=== PATIENT | female | born 1940 | race Caucasian/White ===

== ENCOUNTER → 2016-08-01 | Outpatient (CLI) | payer MEDICARE, MEDICAID ==
[~2016-08-01] MED LIST: /ASCO250TA PO; /AUGM875TA OR; /CIPR75TA OR; /HCTZ25TA PO; /LINE60TA PO; /MUPINAS; /ROPI25TA; /TAMS4CA OR; ACET-654 PO; AMLO25TA PO; ANEXSIA PO; ASPI81CH PO; ASPI81TA83 OR; ASPI81TA85 PO; AUGM875T27 PO; BACITAB3 PO; BACITRACIN TOP; BACT800T OR; BISAC5TA PO; BOUDPST TOP; BUTALBITAL; BUTALBITAL PO; CIPR500T3 PO; COLA100C2 OR; CRES20TA; CRES20TA PO; DIFL150T PO; DOCU100C PO; DOCU10ELUD PO; DOXY100C PO; DRIS50002 PO; EUCECRE2 TOP; EUCECRE3 TOP; FERR325T OR; HYDR-3363 PO; HYDR10EL GT; HYDR10T PO; HYDR10TA3 OR; HYDR12.55 PO; HYDR25TA6 OR; HYLANDS LEG CRAMPS PO; IBAN150T5 PO; IBUP800T23 PO; KEFL500C7 PO; KLOR10TA; KLOR1TAB69 PO; KLOR20PO PO; KLOR8TAB OR; LASI20TA PO; LEG CRAMPS; LEG1TAB PO; LEVA500T; LEVA500T PO; LEVO100T7; LEVO137T2 PO; LEVO150T7 PO; LEVO88TA2 PO; LOPR50TA; MAG OXIDE PO; MAGN500T2 OR; MAGN500T2 PO; MAGN500T6 PO; MULTTAB4 PO; NEOSSOL TOP; NIAS500T2 PO; NYST100024 TOP; ONDA4TAB6 PO; OXYB5TAB; PERC5TAB6 PO; PERC5TAB8 OR; PERC7.5T8 OR; PRIMAXIN IV; QUININE PO; SENO8.6T9 PO; SPIR50TA2 OR; SPIR50TA2 PO; SYNT50TA OR; TRIPOIN EX; TYLE325T5 PO; VIBR100C PO; VIBR50SY PO; VICO5TAB; VIT D 4000 PO; VITA500047 PO; VITAMIN D2 PO; VITAMIN D50000 UNT OR; ZINC220C PO; ZYVO100T PO; [UNRECOGNIZED DRUG - OTHER]; [UNRECOGNIZED DRUG - OTHER]; [UNRECOGNIZED DRUG - OTHER] PO; [UNRECOGNIZED DRUG - OTHER] PO; [UNRECOGNIZED DRUG - OTHER] PO; [UNRECOGNIZED DRUG - REMARK] TOP
[2016-08-01 10:43] LABS: ALBUMIN 3.3 GM/DL (3.2-5.2); ALBUMIN/GLOBULIN RATIO 0.83 (1.00-1.93); BILIRUBIN,TOTAL 0.6 MG/DL (0.2-1.0); CALCIUM LEVEL 10.4 MG/DL (8.8-10.2); CREATININE FOR GFR 0.97 MG/DL (0.55-1.02); FREE T4 1.49 NG/DL (0.76-1.46); GLOMERULAR FILTRATION RATE 59.1 (>39); MAGNESIUM LEVEL 2.3 MG/DL (1.8-2.4); TOTAL PROTEIN 7.3 GM/DL (6.4-8.2)
[2016-08-01 10:45] LABS: POTASSIUM SERUM 5.2 MEQ/L (3.5-5.1)
== END ==
LOC: M LAB 09:23
PROVIDERS: ATTEND Emergency Medicine
DX: I10 Essential (primary) hypertension (principal); E78.2 Mixed hyperlipidemia; E55.9 Vitamin D deficiency, unspecified; R73.01 Impaired fasting glucose; E83.42 Hypomagnesemia; E03.9 Hypothyroidism, unspecified

== ENCOUNTER 2016-09-07 11:18 | Emergency (ER) | payer MEDICARE, MEDICAID ==
[2016-09-07] MEDS ORDERED: ONDANSETRON 4MG/2ML VIAL (J2405) As Ordered ONE (11:51)
[2016-09-07 12:18] LABS: BASO % 0.5 % (0.0-1.0); EOS # 0.1 K/mm3 (0.0-0.50); EOS % 1.5 % (0.0-3.0); LARGE UNSTAINED CELL # 0.1 K/mm3 (0.0-0.4); LARGE UNSTAINED CELL % 1.2 % (0.0-4.0); LYMPH # 0.7 K/mm3 (1.5-4.5); LYMPH % 6.9 % (24.0-44.0); MEAN CORPUSCULAR HEMOGLOBIN 27.8 pg (27.0-33.0); MEAN CORPUSCULAR HGB CONC 31.7 g/dl (32.0-36.5); MEAN CORPUSCULAR VOLUME 87.7 fl (80.0-96.0); MONO # 0.6 K/mm3 (0.0-0.8); MONO % 6.2 % (0.0-5.0); NEUTROPHILS # 7.7 K/mm3 (1.8-7.7); NEUTROPHILS % 83.8 % (36.0-66.0); PLATELET COUNT, AUTOMATED 277 k/mm3 (150-450); RED CELL DISTRIBUTION WIDTH 14.2 % (11.5-14.5); WHITE BLOOD COUNT 9.2 K/mm3 (4.0-10.0)
[2016-09-07 12:35] LABS: ALBUMIN 3.2 GM/DL (3.2-5.2); ALBUMIN/GLOBULIN RATIO 0.78 (1.00-1.93); ALKALINE PHOSPHATASE 95 U/L (45-117); ALT/SGPT 20 U/L (12-78); ANION GAP 11 MEQ/L (8-16); AST/SGOT 23 U/L (15-37); BILIRUBIN,DIRECT < 0.1 MG/DL (0.0-0.2); BILIRUBIN,TOTAL 0.2 MG/DL (0.2-1.0); BLOOD UREA NITROGEN 18 MG/DL (7-18); CALCIUM LEVEL 9.1 MG/DL (8.8-10.2); CARBON DIOXIDE LEVEL 23 MEQ/L (21-32); CHLORIDE LEVEL 108 MEQ/L (98-107); CREATININE FOR GFR 0.97 MG/DL (0.55-1.02); GLOMERULAR FILTRATION RATE 59.1 (>39); GLUCOSE, FASTING 113 MG/DL (83-110); POTASSIUM SERUM 4.6 MEQ/L (3.5-5.1); SODIUM LEVEL 142 MEQ/L (136-145); TOTAL PROTEIN 7.3 GM/DL (6.4-8.2)
--- NOTE | 2016-09-07 12:48 | REP ---
Clinical: Cough . Comparison: 10/17/2013 . Findings: The mediastinum and cardiac silhouette are stable and within normal limits for portable technique. The lung navarro are clear without acute consolidation, effusion, or pneumothorax. Skeletal structures are intact. Impression: Normal portable chest x-ray Signed by Ethan Leone MD 09/07/2016 12:40 P
--- NOTE | 2016-09-07 13:47 | EDDOCDS ---
Physician Documentation [facility] Name: Patricia Rea Age: 76 yrs Sex: Female : 1940 Arrival Date: 09/07/2016 Time: 11:18 Bed I3 / M3 Private MD: Dean Sheffield P. Disposition: 09/07/16 13:35 Discharged to Home/Self Care. Impression: Nausea and vomiting, Diarrhea, unspecified. - Condition is Stable. - Discharge Instructions: Viral Gastroenteritis. - Prescriptions for ZOFRAN ODT 4 mg - dissolve 1 tablet by ORAL route 4 times per day As needed do not chew, do not swallow whole; 10 tablet. - Medication Reconciliation form. - Follow up: Dean Sheffield; When: 1 - 2 days; Reason: Wound/Symptom Recheck, Recheck today's complaints, Worsening of conditions, Continuance of care. - Problem is chronic. - Symptoms have improved. Historical: - Allergies: SULFA (SULFONAMIDES); Phenobarbital; Latex; - Home Meds: 1. Vitamin D2 50,000 unit oral cap once wkly (Last dose: 09/07/2016) 2. aspirin 81 mg Oral chew 1 tab once daily (Last dose: 09/06/2016 08:00) 3. Crestor 20 mg Oral tab 1 tab nightly (Last dose: 09/06/2016 20:00) 4. hydroxyzine HCl 10 mg Oral tab twice a day (Last dose: 09/06/2016 20:00) 5. Klor-Con 10 10 mEq Oral TbER 1 tab once daily (Last dose: 09/06/2016 08:00) 6. ibandronate 150 mg oral tab 1 tab once moly (Last dose: 08/13/2016) 7. Synthroid 137 mcg Oral tab 1 tab once daily (Last dose: 09/06/2016 08:00) 8. magnesium gluconate 500 mg oral daily (Last dose: 09/06/2016 08:00) 9. Zofran (as hydrochloride) 4 mg Oral tab (Last dose: 09/07/2016 10:00) 10. antibiotic for cellulitis twice a day 11. o2 3L NC PRN - PMHx: cellulitis; Hypercholesterolemia; Hypertension; Hypothyroidism; Kidney stones; Osteoporosis; - PSHx: Laminectomy. lumbar; Hysterectomy; Appendectomy; Stents, Coronary; D & C; - Social history: Smoking status: Patient states was never smoker of tobacco. No barriers to communication noted, The patient speaks fluent Mauritanian, Speaks appropriately for age. - Family history: Not pertinent. - : The pt / caregiver states he / she is not on anticoagulants. Home medication list is obtained from the patient. - Exposure Risk Screening:: None identified. Vital Signs: 09/07 11:20 BP 148 / 82 RA Sitting (auto/reg); Pulse 85; Resp 20; Temp 99.6(O); Pulse Ox 100% on 3 jrd lpm NC; Weight 124.28 kg / 273.99 lbs (R); Height 5 ft. 0 in. (152.40 cm) (R); Pain 9/10; 13:29 BP 170 / 71; Pulse 89; Resp 20; Temp 99.5; Pulse Ox 92% ; Pain 8/10; jlf 11:20 Body Mass Index 53.51 (124.28 kg, 152.40 cm) jrd MDM: 11:38 Ondansetron 4 mg IVP once ordered. cc10 11:38 IV Saline Lock ordered. cc10 11:38 Undress patient appropriately for examination ordered. cc10 11:38 -Blood Culture (Adults Only), peripheral from different site, or from device/port/PICC cc10 etc. if present ordered. 11:38 NS 0.9% 1000 ml IV at 250 mL/hr continuous ordered. cc10 11:40 Basic Metabolic Profile Ordered. EDMS 11:40 CBC with Diff Ordered. EDMS 11:40 Lipase Ordered. EDMS 11:40 Liver Profile Ordered. EDMS 11:40 Urinalysis Ordered. EDMS 11:40 Urine Culture Ordered. EDMS 11:40 -Blood Culture Ordered. EDMS 11:40 Lactic Acid (Gomez tube on ice) Ordered. EDMS 11:41 NOTHING BY MOUTH+DIET ordered. EDMS 11:41 Chest, 1 View Ordered. EDMS 11:41 -Blood Culture (Adults Only), peripheral from different site, or from device/port/PICC ar3 etc. if present complete. 11:43 BLOOD CULTURES Ordered. EDMS 12:49 Financial registration complete. mm15 13:15 [facility] was scanned into [employer] and attached to record. mm15 13:22 Basic Metabolic Profile Reviewed. cc10 13:22 CBC with Diff Reviewed. cc10 13:22 Liver Profile Reviewed. cc10 13:22 Urinalysis Reviewed. cc10 13:22 Lipase Reviewed. cc10 13:22 Lactic Acid (Gomez tube on ice) Reviewed. cc10 13:22 Chest, 1 View Reviewed. cc10 13:24 Vital Signs ordered. cc10 Administered Medications: 12:13 Drug: NS 0.9% 1000 ml [sodium chloride 0.9 % intravenous solution] Route: IV; Rate: 250 rs3 mL/hr; Site: right hand; 12:14 Drug: Ondansetron 4 mg [ondansetron HCl 2 mg/mL intravenous solution (2 mL)] Route: rs3 IVP; Site: left hand; Signatures: Dispatcher [employer] EDMS Monica Galvan, CORRECTIONS LIEUTENANT CORRECTIONS LIEUTENANT ar3 Radha Bocanegra, RN RN ttb Juvnecio Payton mm15 Glenn Montalvo, PA-C PA-C cc10 Anjelica Barboza RN RN kc3 Shelley Bruner RN rs3 The chart was reviewed and I authenticate all verbal orders and agree with the evaluation and treatment provided.Attachments: 13:15 [facility] Payment Agreement mm15 MTDD
--- NOTE | 2016-09-07 13:47 | EDDOCDS ---
Nurse's Notes [facility] Name: Patricia Rea Age: 76 yrs Sex: Female : 1940 Arrival Date: 09/07/2016 Time: 11:18 Bed I3 / M3 Private MD: Dean Sheffield P. Diagnosis: Nausea and vomiting;Diarrhea, unspecified Presentation: 09/07 11:23 Presenting complaint: Patient states: n/v/d since this morning and cough x3 days. Abd ttb pain. Adult Sepsis Screening: The patient does not have new or worsening altered mentation. Patient's respiratory rate is less than 22. Systolic blood pressure is greater than 100. Patient has a qSOFA score of 0- Negative Sepsis Screen. Suicide/Homicide risk assessment- the patient denies having any suicidal and/or homicidal ideations and does not present with any other emotional, behavioral or mental health complaints. Status: Patient is not a micrographics services supervisor or dependent. Transition of care: patient was not received from another setting of care. 11:23 Acuity: ERIK Level 3 ttb 11:23 Method Of Arrival: Walkin/Carried/Asstd ttb Triage Assessment: 11:27 General: Appears in no apparent distress, obese, well nourished, Behavior is ttb appropriate for age, cooperative, pleasant. Pain: Location: headache, abd pain. Neurological: Level of Consciousness is awake, alert. Cardiovascular: Chest pain is denied. Respiratory: No deficits noted. Airway is patent Respiratory effort is even, unlabored, Denies cough, shortness of breath. Respiratory: Reports shortness of breath at rest on exertion cough that is. GI: Reports diarrhea, lower abdominal pain, upper abdominal pain, nausea, vomiting. Derm: Skin is normal. Injury Description: No known injury. Historical: - Allergies: SULFA (SULFONAMIDES); Phenobarbital; Latex; - Home Meds: 1. Vitamin D2 50,000 unit oral cap once wkly (Last dose: 09/07/2016) 2. aspirin 81 mg Oral chew 1 tab once daily (Last dose: 09/06/2016 08:00) 3. Crestor 20 mg Oral tab 1 tab nightly (Last dose: 09/06/2016 20:00) 4. hydroxyzine HCl 10 mg Oral tab twice a day (Last dose: 09/06/2016 20:00) 5. Klor-Con 10 10 mEq Oral TbER 1 tab once daily (Last dose: 09/06/2016 08:00) 6. ibandronate 150 mg oral tab 1 tab once moly (Last dose: 08/13/2016) 7. Synthroid 137 mcg Oral tab 1 tab once daily (Last dose: 09/06/2016 08:00) 8. magnesium gluconate 500 mg oral daily (Last dose: 09/06/2016 08:00) 9. Zofran (as hydrochloride) 4 mg Oral tab (Last dose: 09/07/2016 10:00) 10. antibiotic for cellulitis twice a day 11. o2 3L NC PRN - PMHx: cellulitis; Hypercholesterolemia; Hypertension; Hypothyroidism; Kidney stones; Osteoporosis; - PSHx: Laminectomy. lumbar; Hysterectomy; Appendectomy; Stents, Coronary; D & C; - Social history: Smoking status: Patient states was never smoker of tobacco. No barriers to communication noted, The patient speaks fluent Maori, Speaks appropriately for age. - Family history: Not pertinent. - : The pt / caregiver states he / she is not on anticoagulants. Home medication list is obtained from the patient. - Exposure Risk Screening:: None identified. Screenin:16 Screening information is obtained from the patient. Fall risk: No risks identified. rs3 Assistance ADL's: requires no assistance with activities of daily living. Abuse/DV Screen: The patient / caregiver reports he/she is: not in a situation that causes fear, pain or injury. Nutritional screening: No deficits noted. Advance Directives: Currently, there is. home support is adequate. Assessment: 12:15 General: Appears in no apparent distress, Behavior is appropriate for age, cooperative. rs3 Pain: Location: abdomen. Neurological: Level of Consciousness is awake, alert, Oriented to person, place, time. Respiratory: Airway is patent Breath sounds are diminished bilaterally. Reports shortness of breath on exertion. GI: Abdomen is obese, Bowel sounds present X 4 quads. Abd is soft and non tender X 4 quads. Derm: Skin is pink, warm & dry. 13:09 General: Appears in no apparent distress, resting comfortable on stretcher. denies of rs3 pain/distress. family at bedside. nausea improved after the nausea med. waiting on test results. . 13:43 General: Appears in no apparent distress, comfortable, Behavior is appropriate for age, kc3 cooperative. General: Family at bedside. . Respiratory: Respiratory effort is even, unlabored. Derm: Skin is pink, warm & dry. Vital Signs: 11:20 BP 148 / 82 RA Sitting (auto/reg); Pulse 85; Resp 20; Temp 99.6(O); Pulse Ox 100% on 3 jrd lpm NC; Weight 124.28 kg (R); Height 5 ft. 0 in. (152.40 cm) (R); Pain 9/10; 13:29 BP 170 / 71; Pulse 89; Resp 20; Temp 99.5; Pulse Ox 92% ; Pain 8/10; jlf 11:20 Body Mass Index 53.51 (124.28 kg, 152.40 cm) [facility] Vitals: 11:20 Log In Time: September 07, 2016 at 11:03. [facility] ED Course: 11:20 Patient visited by Juaquin Manuel PCA. jrd 11:20 Dean Sheffield is Private Physician. jrd 11:20 Patient moved to Waiting jrd 11:21 Patient visited by Juaquin Manuel PCA. jrd 11:21 Patient moved to Pre RCE jrd 11:24 Triage Initiated ttb 11:25 Glenn Montalvo PA-C is PHCP. cc10 11:25 Alireza Smallwood MD is Attending Physician. cc10 11:32 Patient moved to Triage 1 ms18 11:34 Patient visited by Glenn Montalvo PA-C. cc10 11:34 Patient visited by Glenn Montalvo PA-C. cc10 11:44 Patient moved to I3 / M3 rs3 11:47 Patient visited by Inocente Espinosa PCA. jlf 12:14 -Blood Culture Sent. rs3 12:14 CBC with Diff Sent. rs3 12:18 Patient visited by Inocente Espinosa PCA. jlf 13:04 Chest, 1 View Returned. EDMS 13:09 Patient visited by Shelley Bruner RN. rs3 13:15 [facility] [place] was scanned into [employer] and attached to record. mm15 13:35 Dean Sheffield is Referral Physician. cc10 13:44 Inserted saline lock: 22 gauge in right and blood collected. The patient tolerated the kc3 procedure well. wrist, placed by LINDA Vera. No procedures done that require assistance. 13:46 The patient / caregiver is instructed regarding the plan of care and ED course. kc3 13:46 Discontinued IV lock intact, bleeding controlled, pressure dressing applied, No kc3 redness/swelling at site. Administered Medications: 12:13 Drug: NS 0.9% 1000 ml [sodium chloride 0.9 % intravenous solution] Route: IV; Rate: 250 rs3 mL/hr; Site: right hand; 12:14 Drug: Ondansetron 4 mg [ondansetron HCl 2 mg/mL intravenous solution (2 mL)] Route: rs3 IVP; Site: left hand; Order Results: Lab Order: Basic Metabolic Profile; [facility] 09/07/16 11:47 Test: GLUCOSE, FASTING; Value: 113; Range: 83-110; Abnormal: Above high normal; Units: MG/DL; Status: F Test: BLOOD UREA NITROGEN; Value: 18; Range: 7-18; Units: MG/DL; Status: F Test: CREATININE FOR GFR; Value: 0.97; Range: 0.55-1.02; Units: MG/DL; Status: F Test: GLOMERULAR FILTRATION RATE; Value: 59.1; Range: >39; Status: F Test: SODIUM LEVEL; Value: 142; Range: 136-145; Units: MEQ/L; Status: F Test: POTASSIUM SERUM; Value: 4.6; Range: 3.5-5.1; Units: MEQ/L; Status: F Test: CHLORIDE LEVEL; Value: 108; Range: 98-107; Abnormal: Above high normal; Units: MEQ/L; Status: F Test: CARBON DIOXIDE LEVEL; Value: 23; Range: 21-32; Units: MEQ/L; Status: F Test: ANION GAP; Value: 11; Range: 8-16; Units: MEQ/L; Status: F Test: CALCIUM LEVEL; Value: 9.1; Range: 8.8-10.2; Units: MG/DL; Status: F Test Note: ; Units are mL/min/1.73 m2 Chronic Kidney Disease Staging per NKF: Stage I & II GFR >=60 Normal to Mildly Decreased Stage III GFR 30-59 Moderately Decreased Stage IV GFR 15-29 Severely Decreased Stage V GFR <15 Very Little GFR Left ESRD GFR <15 on BRAIDING MACHINE TENDER Lab Order: CBC with Diff; SPEC'M 09/07/16 11:47 Test: WHITE BLOOD COUNT; Value: 9.2; Range: 4.0-10.0; Units: K/mm3; Status: F Test: RED BLOOD COUNT; Value: 4.93; Range: 4.00-5.40; Units: M/mm3; Status: F Test: HEMOGLOBIN; Value: 13.7; Range: 12.0-16.0; Units: g/dl; Status: F Test: HEMATOCRIT; Value: 43.2; Range: 36.0-47.0; Units: %; Status: F Test: MEAN CORPUSCULAR VOLUME; Value: 87.7; Range: 80.0-96.0; Units: fl; Status: F Test: MEAN CORPUSCULAR HEMOGLOBIN; Value: 27.8; Range: 27.0-33.0; Units: pg; Status: F Test: MEAN CORPUSCULAR HGB CONC; Value: 31.7; Range: 32.0-36.5; Abnormal: Below low normal; Units: g/dl; Status: F Test: RED CELL DISTRIBUTION WIDTH; Value: 14.2; Range: 11.5-14.5; Units: %; Status: F Test: PLATELET COUNT, AUTOMATED; Value: 277; Range: 150-450; Units: k/mm3; Status: F Test: NEUTROPHILS %; Value: 83.8; Range: 36.0-66.0; Abnormal: Above high normal; Units: %; Status: F Test: LYMPH %; Value: 6.9; Range: 24.0-44.0; Abnormal: Below low normal; Units: %; Status: F Test: MONO %; Value: 6.2; Range: 0.0-5.0; Abnormal: Above high normal; Units: %; Status: F Test: EOS %; Value: 1.5; Range: 0.0-3.0; Units: %; Status: F Test: BASO %; Value: 0.5; Range: 0.0-1.0; Units: %; Status: F Test: LARGE UNSTAINED CELL %; Value: 1.2; Range: 0.0-4.0; Units: %; Status: F Test: NEUTROPHILS #; Value: 7.7; Range: 1.8-7.7; Units: K/mm3; Status: F Test: LYMPH #; Value: 0.7; Range: 1.5-4.5; Abnormal: Below low normal; Units: K/mm3; Status: F Test: MONO #; Value: 0.6; Range: 0.0-0.8; Units: K/mm3; Status: F Test: EOS #; Value: 0.1; Range: 0.0-0.50; Units: K/mm3; Status: F Test: BASO #; Value: 0.0; Range: 0.0-0.2; Units: K/mm3; Status: F Test: LARGE UNSTAINED CELL #; Value: 0.1; Range: 0.0-0.4; Units: K/mm3; Status: F Lab Order: Lipase; [facility] 09/07/16 11:47 Test: LIPASE; Value: 338; Range: 73-393; Units: U/L; Status: F Lab Order: Liver Profile; [facility] 09/07/16 11:47 Test: AST/SGOT; Value: 23; Range: 15-37; Units: U/L; Status: F Test: ALT/SGPT; Value: 20; Range: 12-78; Units: U/L; Status: F Test: ALKALINE PHOSPHATASE; Value: 95; Range: 45-117; Units: U/L; Status: F Test: BILIRUBIN,TOTAL; Value: 0.2; Range: 0.2-1.0; Units: MG/DL; Status: F Test: BILIRUBIN,DIRECT; Value: < 0.1; Range: 0.0-0.2; Units: MG/DL; Status: F Test: TOTAL PROTEIN; Value: 7.3; Range: 6.4-8.2; Units: GM/DL; Status: F Test: ALBUMIN; Value: 3.2; Range: 3.2-5.2; Units: GM/DL; Status: F Test: ALBUMIN/GLOBULIN RATIO; Value: 0.78; Range: 1.00-1.93; Abnormal: Below low normal; Status: F Lab Order: Urinalysis; [facility] 09/07/16 11:47 Test: APPEARANCE, URINE; Value: HAZY; Range: CLEAR; Status: F Test: COLOR, URINE; Value: YELLOW; Range: YELLOW; Status: F Test: PH,URINE; Value: 6.0; Range: 5.0-9.0; Units: UNITS; Status: F Test: SPECIFIC GRAVITY URINE AUTO; Value: 1.014; Range: 1.002-1.035; Status: F Test: PROTEIN, URINE AUTO; Value: 1+; Range: NEGATIVE; Abnormal: Above high normal; Units: mg/dL; Status: F Test: GLUCOSE, URINE (UA) AUTO; Value: NEGATIVE; Range: NEGATIVE; Units: mg/dL; Status: F Test: KETONE, URINE AUTO; Value: NEGATIVE; Range: NEGATIVE; Units: mg/dL; Status: F Test: UROBILINOGEN, URINE AUTO; Value: 0.2; Range: 0.0-2.0; Units: mg/dL; Status: F Test: BILIRUBIN, URINE AUTO; Value: NEGATIVE; Range: NEGATIVE; Status: F Test: NITRITE, URINE AUTO; Value: NEGATIVE; Range: NEGATIVE; Status: F Test: LEUKOCYTE ESTERASE, URINE AUTO; Value: NEGATIVE; Range: NEGATIVE; Status: F Test: BLOOD, URINE BLOOD; Value: 2+; Range: NEGATIVE; Abnormal: Above high normal; Status: F Test: WBC, URINE AUTO; Value: 13; Range: 0-3; Abnormal: Above high normal; Units: /HPF; Status: F Test: RBC, URINE AUTO; Value: 173; Range: 0-3; Abnormal: Above high normal; Units: /HPF; Status: F Test: BACTERIA, URINE AUTO; Value: NEGATIVE; Range: NEGATIVE; Status: F Test: SQUAMOUS EPITHELIAL CELL UR AU; Value: 0; Range: 0-6; Units: /HPF; Status: F Test: MUCUS, URINE; Value: SMALL; Range: NEGATIVE; Status: F Test: HYALINE CAST, URINE AUTO; Value: 0; Range: 0-1; Units: /LPF; Status: F Lab Order: Lactic Acid (Gomez tube on ice); SPEC'M 09/07/16 12:38 Test: LACTIC ACID SEPSIS PROTOCOL; Value: 1.2; Range: 0.4-2.0; Units: MMOL/L; Status: F Radiology Order: Chest, 1 View Test: Chest, 1 View REASON FOR EXAMINATION: Cough; Clinical: Cough .; ; Comparison: 10/17/2013 .; ; Findings:; The mediastinum and cardiac silhouette are stable and within normal limits for; portable technique. The lung navarro are clear without acute consolidation,; effusion, or pneumothorax. Skeletal structures are intact.; ; Impression:; Normal portable chest x-ray; ; ; Signed by; Ethan Leone MD 09/07/2016 12:40 P; Outcome: 13:35 Discharge ordered by Provider. cc10 13:44 Discharge Assessment: Patient awake, alert and oriented x 3. No cognitive and/or kc3 functional deficits noted. Patient verbalized understanding of disposition instructions. patient administered narcotics - no. The following High Risk Discharge criteria are identified: None. Discharged to home via wheelchair, with family. Condition: stable. Discharge instructions given to patient, Instructed on discharge instructions, follow up and referral plans. medication usage, Demonstrated understanding of instructions, medications, Pt was receptive of discharge instructions/ teaching. Prescriptions given X 1. No special radiology studies were completed. Property :Personal belongings accompany Pt. 13:47 Patient left the ED. kc3 Signatures: Dispatcher [employer] EDMS Shelley BrunerRN RN rs3 Radha Bocanegra RN RN Juvencio Zambrano mm15 Inocente Espinosa, PATTERNMAKER APPRENTICE WOOD PATTERNMAKER APPRENTICE WOOD Glenn Smith, PA-C PA-C cc10 Bethany Kim,LINDA RN ms18 Juaquin Manuel, PATTERNMAKER APPRENTICE WOOD PATTERNMAKER APPRENTICE WOOD jrd Anjelica Barboza,RN RN kc3 MTDD
--- NOTE | 2016-09-09 14:48 | EDDOCDS ---
Physician Documentation [facility] Name: Patricia Rea Age: 76 yrs Sex: Female : 1940 Arrival Date: 09/07/2016 Time: 11:18 Bed I3 / M3 Private MD: Dean Sheffield P. Disposition: 09/07/16 13:35 Discharged to Home/Self Care. Impression: Nausea and vomiting, Diarrhea, unspecified. - Condition is Stable. - Discharge Instructions: Viral Gastroenteritis. - Prescriptions for ZOFRAN ODT 4 mg - dissolve 1 tablet by ORAL route 4 times per day As needed do not chew, do not swallow whole; 10 tablet. - Medication Reconciliation form. - Follow up: Dean Sheffield; When: 1 - 2 days; Reason: Wound/Symptom Recheck, Recheck today's complaints, Worsening of conditions, Continuance of care. - Problem is chronic. - Symptoms have improved. Historical: - Allergies: SULFA (SULFONAMIDES); Phenobarbital; Latex; - Home Meds: 1. Vitamin D2 50,000 unit oral cap once wkly (Last dose: 09/07/2016) 2. aspirin 81 mg Oral chew 1 tab once daily (Last dose: 09/06/2016 08:00) 3. Crestor 20 mg Oral tab 1 tab nightly (Last dose: 09/06/2016 20:00) 4. hydroxyzine HCl 10 mg Oral tab twice a day (Last dose: 09/06/2016 20:00) 5. Klor-Con 10 10 mEq Oral TbER 1 tab once daily (Last dose: 09/06/2016 08:00) 6. ibandronate 150 mg oral tab 1 tab once moly (Last dose: 08/13/2016) 7. Synthroid 137 mcg Oral tab 1 tab once daily (Last dose: 09/06/2016 08:00) 8. magnesium gluconate 500 mg oral daily (Last dose: 09/06/2016 08:00) 9. Zofran (as hydrochloride) 4 mg Oral tab (Last dose: 09/07/2016 10:00) 10. antibiotic for cellulitis twice a day 11. o2 3L NC PRN - PMHx: cellulitis; Hypercholesterolemia; Hypertension; Hypothyroidism; Kidney stones; Osteoporosis; - PSHx: Laminectomy. lumbar; Hysterectomy; Appendectomy; Stents, Coronary; D & C; - Social history: Smoking status: Patient states was never smoker of tobacco. No barriers to communication noted, The patient speaks fluent [place] Islander, Speaks appropriately for age. - Family history: Not pertinent. - : The pt / caregiver states he / she is not on anticoagulants. Home medication list is obtained from the patient. - Exposure Risk Screening:: None identified. Vital Signs: 09/07 11:20 BP 148 / 82 RA Sitting (auto/reg); Pulse 85; Resp 20; Temp 99.6(O); Pulse Ox 100% on 3 jrd lpm NC; Weight 124.28 kg / 273.99 lbs (R); Height 5 ft. 0 in. (152.40 cm) (R); Pain 9/10; 13:29 BP 170 / 71; Pulse 89; Resp 20; Temp 99.5; Pulse Ox 92% ; Pain 8/10; jlf 11:20 Body Mass Index 53.51 (124.28 kg, 152.40 cm) jrd MDM: 11:38 Ondansetron 4 mg IVP once ordered. cc10 11:38 IV Saline Lock ordered. cc10 11:38 Undress patient appropriately for examination ordered. cc10 11:38 -Blood Culture (Adults Only), peripheral from different site, or from device/port/PICC cc10 etc. if present ordered. 11:38 NS 0.9% 1000 ml IV at 250 mL/hr continuous ordered. cc10 11:40 Basic Metabolic Profile Ordered. EDMS 11:40 CBC with Diff Ordered. EDMS 11:40 Lipase Ordered. EDMS 11:40 Liver Profile Ordered. EDMS 11:40 Urinalysis Ordered. EDMS 11:40 Urine Culture Ordered. EDMS 11:40 -Blood Culture Ordered. EDMS 11:40 Lactic Acid (Gomez tube on ice) Ordered. EDMS 11:41 NOTHING BY MOUTH+DIET ordered. EDMS 11:41 Chest, 1 View Ordered. EDMS 11:41 -Blood Culture (Adults Only), peripheral from different site, or from device/port/PICC ar3 etc. if present complete. 11:43 BLOOD CULTURES Ordered. EDMS 12:49 Financial registration complete. mm15 13:15 [facility] [place] Agreement was scanned into [employer] and attached to record. mm15 13:22 Basic Metabolic Profile Reviewed. cc10 13:22 CBC with Diff Reviewed. cc10 13:22 Liver Profile Reviewed. cc10 13:22 Urinalysis Reviewed. cc10 13:22 Lipase Reviewed. cc10 13:22 Lactic Acid (Gomez tube on ice) Reviewed. cc10 13:22 Chest, 1 View Reviewed. cc10 13:24 Vital Signs ordered. cc10 09/08 10:31 T-Sheet-- Draft Copy was scanned into [employer] and attached to record. gb Administered Medications: 09/07 12:13 Drug: NS 0.9% 1000 ml [sodium chloride 0.9 % intravenous solution] Route: IV; Rate: 250 rs3 mL/hr; Site: right hand; 12:14 Drug: Ondansetron 4 mg [ondansetron HCl 2 mg/mL intravenous solution (2 mL)] Route: rs3 IVP; Site: left hand; Signatures: Dispatcher [employer] EDMS Ana Gonzalez, Reg Reg gb Monica Galvan, RADIAGRAPH OPERATOR RADIAGRAPH OPERATOR ar3 Radha Bocanegra, LINDA RN ttJuvencio Robb mm15 Glenn Montalvo, PA-C PA-C cc10 Anjelica Barboza RN RN kc3 Shelley Bruner RN rs3 The chart was reviewed and I authenticate all verbal orders and agree with the evaluation and treatment provided.Attachments: 13:15 [facility] [place] Agreement mm15 09/08 10:31 T-Sheet-- Draft Copy gb Chart Complete MTDD
--- NOTE | 2016-09-09 14:48 | EDDOCDS ---
Physician Documentation [facility] Name: Patricia Rea Age: 76 yrs Sex: Female : 1940 Arrival Date: 09/07/2016 Time: 11:18 Bed I3 / M3 Private MD: Dean Sheffield P. Disposition: 09/07/16 13:35 Discharged to Home/Self Care. Impression: Nausea and vomiting, Diarrhea, unspecified. - Condition is Stable. - Discharge Instructions: Viral Gastroenteritis. - Prescriptions for ZOFRAN ODT 4 mg - dissolve 1 tablet by ORAL route 4 times per day As needed do not chew, do not swallow whole; 10 tablet. - Medication Reconciliation form. - Follow up: Dean Sheffield; When: 1 - 2 days; Reason: Wound/Symptom Recheck, Recheck today's complaints, Worsening of conditions, Continuance of care. - Problem is chronic. - Symptoms have improved. Historical: - Allergies: SULFA (SULFONAMIDES); Phenobarbital; Latex; - Home Meds: 1. Vitamin D2 50,000 unit oral cap once wkly (Last dose: 09/07/2016) 2. aspirin 81 mg Oral chew 1 tab once daily (Last dose: 09/06/2016 08:00) 3. Crestor 20 mg Oral tab 1 tab nightly (Last dose: 09/06/2016 20:00) 4. hydroxyzine HCl 10 mg Oral tab twice a day (Last dose: 09/06/2016 20:00) 5. Klor-Con 10 10 mEq Oral TbER 1 tab once daily (Last dose: 09/06/2016 08:00) 6. ibandronate 150 mg oral tab 1 tab once moly (Last dose: 08/13/2016) 7. Synthroid 137 mcg Oral tab 1 tab once daily (Last dose: 09/06/2016 08:00) 8. magnesium gluconate 500 mg oral daily (Last dose: 09/06/2016 08:00) 9. Zofran (as hydrochloride) 4 mg Oral tab (Last dose: 09/07/2016 10:00) 10. antibiotic for cellulitis twice a day 11. o2 3L NC PRN - PMHx: cellulitis; Hypercholesterolemia; Hypertension; Hypothyroidism; Kidney stones; Osteoporosis; - PSHx: Laminectomy. lumbar; Hysterectomy; Appendectomy; Stents, Coronary; D & C; - Social history: Smoking status: Patient states was never smoker of tobacco. No barriers to communication noted, The patient speaks fluent [place], Speaks appropriately for age. - Family history: Not pertinent. - : The pt / caregiver states he / she is not on anticoagulants. Home medication list is obtained from the patient. - Exposure Risk Screening:: None identified. Vital Signs: 09/07 11:20 BP 148 / 82 RA Sitting (auto/reg); Pulse 85; Resp 20; Temp 99.6(O); Pulse Ox 100% on 3 jrd lpm NC; Weight 124.28 kg / 273.99 lbs (R); Height 5 ft. 0 in. (152.40 cm) (R); Pain 9/10; 13:29 BP 170 / 71; Pulse 89; Resp 20; Temp 99.5; Pulse Ox 92% ; Pain 8/10; jlf 11:20 Body Mass Index 53.51 (124.28 kg, 152.40 cm) jrd MDM: 11:38 Ondansetron 4 mg IVP once ordered. cc10 11:38 IV Saline Lock ordered. cc10 11:38 Undress patient appropriately for examination ordered. cc10 11:38 -Blood Culture (Adults Only), peripheral from different site, or from device/port/PICC cc10 etc. if present ordered. 11:38 NS 0.9% 1000 ml IV at 250 mL/hr continuous ordered. cc10 11:40 Basic Metabolic Profile Ordered. EDMS 11:40 CBC with Diff Ordered. EDMS 11:40 Lipase Ordered. EDMS 11:40 Liver Profile Ordered. EDMS 11:40 Urinalysis Ordered. EDMS 11:40 Urine Culture Ordered. EDMS 11:40 -Blood Culture Ordered. EDMS 11:40 Lactic Acid (Gomez tube on ice) Ordered. EDMS 11:41 NOTHING BY MOUTH+DIET ordered. EDMS 11:41 Chest, 1 View Ordered. EDMS 11:41 -Blood Culture (Adults Only), peripheral from different site, or from device/port/PICC ar3 etc. if present complete. 11:43 BLOOD CULTURES Ordered. EDMS 12:49 Financial registration complete. mm15 13:15 [facility] [place] was scanned into [employer] and attached to record. mm15 13:22 Basic Metabolic Profile Reviewed. cc10 13:22 CBC with Diff Reviewed. cc10 13:22 Liver Profile Reviewed. cc10 13:22 Urinalysis Reviewed. cc10 13:22 Lipase Reviewed. cc10 13:22 Lactic Acid (Gomez tube on ice) Reviewed. cc10 13:22 Chest, 1 View Reviewed. cc10 13:24 Vital Signs ordered. cc10 09/08 10:31 T-Sheet-- Draft Copy was scanned into [employer] and attached to record. gb Administered Medications: 09/07 12:13 Drug: NS 0.9% 1000 ml [sodium chloride 0.9 % intravenous solution] Route: IV; Rate: 250 rs3 mL/hr; Site: right hand; 12:14 Drug: Ondansetron 4 mg [ondansetron HCl 2 mg/mL intravenous solution (2 mL)] Route: rs3 IVP; Site: left hand; Signatures: Dispatcher OFERTALDIA EDMS Ana Gonzalez, Reg Reg gb Monica Galvan, CATH LAB TECHNOLOGIST CATH LAB TECHNOLOGIST ar3 Radha Bocanegra, LINDA RN ttJuvencio Robb mm15 Glenn Montalvo, PA-C PA-C cc10 Anjelica Barboza RN RN kc3 Shelley Bruner RN rs3 The chart was reviewed and I authenticate all verbal orders and agree with the evaluation and treatment provided.Attachments: 13:15 [facility] [place] Agreement mm15 09/08 10:31 T-Sheet-- Draft Copy gb Chart Complete MTDD
--- NOTE | 2016-09-09 14:48 | EDDOCDS ---
Nurse's Notes [facility] Name: Patricia Rea Age: 76 yrs Sex: Female : 1940 Arrival Date: 09/07/2016 Time: 11:18 Bed I3 / M3 Private MD: Dean Sheffield P. Diagnosis: Nausea and vomiting;Diarrhea, unspecified Presentation: 09/07 11:23 Presenting complaint: Patient states: n/v/d since this morning and cough x3 days. Abd ttb pain. Adult Sepsis Screening: The patient does not have new or worsening altered mentation. Patient's respiratory rate is less than 22. Systolic blood pressure is greater than 100. Patient has a qSOFA score of 0- Negative Sepsis Screen. Suicide/Homicide risk assessment- the patient denies having any suicidal and/or homicidal ideations and does not present with any other emotional, behavioral or mental health complaints. Status: Patient is not a information services tech or dependent. Transition of care: patient was not received from another setting of care. 11:23 Acuity: ERIK Level 3 ttb 11:23 Method Of Arrival: Walkin/Carried/Asstd ttb Triage Assessment: 11:27 General: Appears in no apparent distress, obese, well nourished, Behavior is ttb appropriate for age, cooperative, pleasant. Pain: Location: headache, abd pain. Neurological: Level of Consciousness is awake, alert. Cardiovascular: Chest pain is denied. Respiratory: No deficits noted. Airway is patent Respiratory effort is even, unlabored, Denies cough, shortness of breath. Respiratory: Reports shortness of breath at rest on exertion cough that is. GI: Reports diarrhea, lower abdominal pain, upper abdominal pain, nausea, vomiting. Derm: Skin is normal. Injury Description: No known injury. Historical: - Allergies: SULFA (SULFONAMIDES); Phenobarbital; Latex; - Home Meds: 1. Vitamin D2 50,000 unit oral cap once wkly (Last dose: 09/07/2016) 2. aspirin 81 mg Oral chew 1 tab once daily (Last dose: 09/06/2016 08:00) 3. Crestor 20 mg Oral tab 1 tab nightly (Last dose: 09/06/2016 20:00) 4. hydroxyzine HCl 10 mg Oral tab twice a day (Last dose: 09/06/2016 20:00) 5. Klor-Con 10 10 mEq Oral TbER 1 tab once daily (Last dose: 09/06/2016 08:00) 6. ibandronate 150 mg oral tab 1 tab once moly (Last dose: 08/13/2016) 7. Synthroid 137 mcg Oral tab 1 tab once daily (Last dose: 09/06/2016 08:00) 8. magnesium gluconate 500 mg oral daily (Last dose: 09/06/2016 08:00) 9. Zofran (as hydrochloride) 4 mg Oral tab (Last dose: 09/07/2016 10:00) 10. antibiotic for cellulitis twice a day 11. o2 3L NC PRN - PMHx: cellulitis; Hypercholesterolemia; Hypertension; Hypothyroidism; Kidney stones; Osteoporosis; - PSHx: Laminectomy. lumbar; Hysterectomy; Appendectomy; Stents, Coronary; D & C; - Social history: Smoking status: Patient states was never smoker of tobacco. No barriers to communication noted, The patient speaks fluent [place], Speaks appropriately for age. - Family history: Not pertinent. - : The pt / caregiver states he / she is not on anticoagulants. Home medication list is obtained from the patient. - Exposure Risk Screening:: None identified. Screenin:16 Screening information is obtained from the patient. Fall risk: No risks identified. rs3 Assistance ADL's: requires no assistance with activities of daily living. Abuse/DV Screen: The patient / caregiver reports he/she is: not in a situation that causes fear, pain or injury. Nutritional screening: No deficits noted. Advance Directives: Currently, there is. home support is adequate. Assessment: 12:15 General: Appears in no apparent distress, Behavior is appropriate for age, cooperative. rs3 Pain: Location: abdomen. Neurological: Level of Consciousness is awake, alert, Oriented to person, place, time. Respiratory: Airway is patent Breath sounds are diminished bilaterally. Reports shortness of breath on exertion. GI: Abdomen is obese, Bowel sounds present X 4 quads. Abd is soft and non tender X 4 quads. Derm: Skin is pink, warm & dry. 13:09 General: Appears in no apparent distress, resting comfortable on stretcher. denies of rs3 pain/distress. family at bedside. nausea improved after the nausea med. waiting on test results. . 13:43 General: Appears in no apparent distress, comfortable, Behavior is appropriate for age, kc3 cooperative. General: Family at bedside. . Respiratory: Respiratory effort is even, unlabored. Derm: Skin is pink, warm & dry. Vital Signs: 11:20 BP 148 / 82 RA Sitting (auto/reg); Pulse 85; Resp 20; Temp 99.6(O); Pulse Ox 100% on 3 jrd lpm NC; Weight 124.28 kg (R); Height 5 ft. 0 in. (152.40 cm) (R); Pain 9/10; 13:29 BP 170 / 71; Pulse 89; Resp 20; Temp 99.5; Pulse Ox 92% ; Pain 8/10; jlf 11:20 Body Mass Index 53.51 (124.28 kg, 152.40 cm) [facility] Vitals: 11:20 Log In Time: September 07, 2016 at 11:03. [facility] ED Course: 11:20 Patient visited by Juaquin Manuel PCA. jrd 11:20 Dean Sheffield is Private Physician. jrd 11:20 Patient moved to Waiting jrd 11:21 Patient visited by Juauqin Manuel PCA. jrd 11:21 Patient moved to Pre RCE jrd 11:24 Triage Initiated ttb 11:25 Glenn Montalvo PA-C is PHCP. cc10 11:25 Alireza Smallwood MD is Attending Physician. cc10 11:32 Patient moved to Triage 1 ms18 11:34 Patient visited by Glenn Montalvo PA-C. cc10 11:34 Patient visited by Glenn Montalvo PA-C. cc10 11:44 Patient moved to I3 / M3 rs3 11:47 Patient visited by Inocente Espinosa PCA. jlf 12:14 -Blood Culture Sent. rs3 12:14 CBC with Diff Sent. rs3 12:18 Patient visited by Inocente Espinosa PCA. jlf 13:04 Chest, 1 View Returned. EDMS 13:09 Patient visited by Shelley Bruner RN. rs3 13:15 [facility] [place] Agreement was scanned into [employer] and attached to record. mm15 13:35 Dean Sheffield is Referral Physician. cc10 13:44 Inserted saline lock: 22 gauge in right and blood collected. The patient tolerated the kc3 procedure well. wrist, placed by LINDA Vera. No procedures done that require assistance. 13:46 The patient / caregiver is instructed regarding the plan of care and ED course. kc3 13:46 Discontinued IV lock intact, bleeding controlled, pressure dressing applied, No kc3 redness/swelling at site. 09/08 10:31 T-Sheet-- Draft Copy was scanned into [employer] and attached to record. gb Administered Medications: 09/07 12:13 Drug: NS 0.9% 1000 ml [sodium chloride 0.9 % intravenous solution] Route: IV; Rate: 250 rs3 mL/hr; Site: right hand; 12:14 Drug: Ondansetron 4 mg [ondansetron HCl 2 mg/mL intravenous solution (2 mL)] Route: rs3 IVP; Site: left hand; Order Results: Lab Order: Basic Metabolic Profile; SPEC'M 09/07/16 11:47 Test: GLUCOSE, FASTING; Value: 113; Range: 83-110; Abnormal: Above high normal; Units: MG/DL; Status: F Test: BLOOD UREA NITROGEN; Value: 18; Range: 7-18; Units: MG/DL; Status: F Test: CREATININE FOR GFR; Value: 0.97; Range: 0.55-1.02; Units: MG/DL; Status: F Test: GLOMERULAR FILTRATION RATE; Value: 59.1; Range: >39; Status: F Test: SODIUM LEVEL; Value: 142; Range: 136-145; Units: MEQ/L; Status: F Test: POTASSIUM SERUM; Value: 4.6; Range: 3.5-5.1; Units: MEQ/L; Status: F Test: CHLORIDE LEVEL; Value: 108; Range: 98-107; Abnormal: Above high normal; Units: MEQ/L; Status: F Test: CARBON DIOXIDE LEVEL; Value: 23; Range: 21-32; Units: MEQ/L; Status: F Test: ANION GAP; Value: 11; Range: 8-16; Units: MEQ/L; Status: F Test: CALCIUM LEVEL; Value: 9.1; Range: 8.8-10.2; Units: MG/DL; Status: F Test Note: ; Units are mL/min/1.73 m2 Chronic Kidney Disease Staging per NKF: Stage I & II GFR >=60 Normal to Mildly Decreased Stage III GFR 30-59 Moderately Decreased Stage IV GFR 15-29 Severely Decreased Stage V GFR <15 Very Little GFR Left ESRD GFR <15 on BELL TIER Lab Order: CBC with Diff; JENNIFER'Yenny 09/07/16 11:47 Test: WHITE BLOOD COUNT; Value: 9.2; Range: 4.0-10.0; Units: K/mm3; Status: F Test: RED BLOOD COUNT; Value: 4.93; Range: 4.00-5.40; Units: M/mm3; Status: F Test: HEMOGLOBIN; Value: 13.7; Range: 12.0-16.0; Units: g/dl; Status: F Test: HEMATOCRIT; Value: 43.2; Range: 36.0-47.0; Units: %; Status: F Test: MEAN CORPUSCULAR VOLUME; Value: 87.7; Range: 80.0-96.0; Units: fl; Status: F Test: MEAN CORPUSCULAR HEMOGLOBIN; Value: 27.8; Range: 27.0-33.0; Units: pg; Status: F Test: MEAN CORPUSCULAR HGB CONC; Value: 31.7; Range: 32.0-36.5; Abnormal: Below low normal; Units: g/dl; Status: F Test: RED CELL DISTRIBUTION WIDTH; Value: 14.2; Range: 11.5-14.5; Units: %; Status: F Test: PLATELET COUNT, AUTOMATED; Value: 277; Range: 150-450; Units: k/mm3; Status: F Test: NEUTROPHILS %; Value: 83.8; Range: 36.0-66.0; Abnormal: Above high normal; Units: %; Status: F Test: LYMPH %; Value: 6.9; Range: 24.0-44.0; Abnormal: Below low normal; Units: %; Status: F Test: MONO %; Value: 6.2; Range: 0.0-5.0; Abnormal: Above high normal; Units: %; Status: F Test: EOS %; Value: 1.5; Range: 0.0-3.0; Units: %; Status: F Test: BASO %; Value: 0.5; Range: 0.0-1.0; Units: %; Status: F Test: LARGE UNSTAINED CELL %; Value: 1.2; Range: 0.0-4.0; Units: %; Status: F Test: NEUTROPHILS #; Value: 7.7; Range: 1.8-7.7; Units: K/mm3; Status: F Test: LYMPH #; Value: 0.7; Range: 1.5-4.5; Abnormal: Below low normal; Units: K/mm3; Status: F Test: MONO #; Value: 0.6; Range: 0.0-0.8; Units: K/mm3; Status: F Test: EOS #; Value: 0.1; Range: 0.0-0.50; Units: K/mm3; Status: F Test: BASO #; Value: 0.0; Range: 0.0-0.2; Units: K/mm3; Status: F Test: LARGE UNSTAINED CELL #; Value: 0.1; Range: 0.0-0.4; Units: K/mm3; Status: F Lab Order: Lipase; SPEC' 09/07/16 11:47 Test: LIPASE; Value: 338; Range: 73-393; Units: U/L; Status: F Lab Order: Liver Profile; SPEC' 09/07/16 11:47 Test: AST/SGOT; Value: 23; Range: 15-37; Units: U/L; Status: F Test: ALT/SGPT; Value: 20; Range: 12-78; Units: U/L; Status: F Test: ALKALINE PHOSPHATASE; Value: 95; Range: 45-117; Units: U/L; Status: F Test: BILIRUBIN,TOTAL; Value: 0.2; Range: 0.2-1.0; Units: MG/DL; Status: F Test: BILIRUBIN,DIRECT; Value: < 0.1; Range: 0.0-0.2; Units: MG/DL; Status: F Test: TOTAL PROTEIN; Value: 7.3; Range: 6.4-8.2; Units: GM/DL; Status: F Test: ALBUMIN; Value: 3.2; Range: 3.2-5.2; Units: GM/DL; Status: F Test: ALBUMIN/GLOBULIN RATIO; Value: 0.78; Range: 1.00-1.93; Abnormal: Below low normal; Status: F Lab Order: Urinalysis; SPEC'M 09/07/16 11:47 Test: APPEARANCE, URINE; Value: HAZY; Range: CLEAR; Status: F Test: COLOR, URINE; Value: YELLOW; Range: YELLOW; Status: F Test: PH,URINE; Value: 6.0; Range: 5.0-9.0; Units: UNITS; Status: F Test: SPECIFIC GRAVITY URINE AUTO; Value: 1.014; Range: 1.002-1.035; Status: F Test: PROTEIN, URINE AUTO; Value: 1+; Range: NEGATIVE; Abnormal: Above high normal; Units: mg/dL; Status: F Test: GLUCOSE, URINE (UA) AUTO; Value: NEGATIVE; Range: NEGATIVE; Units: mg/dL; Status: F Test: KETONE, URINE AUTO; Value: NEGATIVE; Range: NEGATIVE; Units: mg/dL; Status: F Test: UROBILINOGEN, URINE AUTO; Value: 0.2; Range: 0.0-2.0; Units: mg/dL; Status: F Test: BILIRUBIN, URINE AUTO; Value: NEGATIVE; Range: NEGATIVE; Status: F Test: NITRITE, URINE AUTO; Value: NEGATIVE; Range: NEGATIVE; Status: F Test: LEUKOCYTE ESTERASE, URINE AUTO; Value: NEGATIVE; Range: NEGATIVE; Status: F Test: BLOOD, URINE BLOOD; Value: 2+; Range: NEGATIVE; Abnormal: Above high normal; Status: F Test: WBC, URINE AUTO; Value: 13; Range: 0-3; Abnormal: Above high normal; Units: /HPF; Status: F Test: RBC, URINE AUTO; Value: 173; Range: 0-3; Abnormal: Above high normal; Units: /HPF; Status: F Test: BACTERIA, URINE AUTO; Value: NEGATIVE; Range: NEGATIVE; Status: F Test: SQUAMOUS EPITHELIAL CELL UR AU; Value: 0; Range: 0-6; Units: /HPF; Status: F Test: MUCUS, URINE; Value: SMALL; Range: NEGATIVE; Status: F Test: HYALINE CAST, URINE AUTO; Value: 0; Range: 0-1; Units: /LPF; Status: F Lab Order: Urine Culture; SPEC'M 09/07/16 11:48 Test: URINE CULTURE; Value: <EXTERNAL COMMENT eCWMed> FULL REPORT IN LAB NOTES (eCW and Medent).; Status: F Test: URINE CULTURE; Value: ORGANISM 1: PSEUDOMONAS AERUGINOSA; Status: F Test: URINE CULTURE; Value: PSEUDOMONAS AERUGINOSA; Status: F Test: URINE CULTURE; Value: COLONY COUNT CFU/ml 30,000; Status: F Test: URINE CULTURE; Value: GRAM NEG SENSI - VITEK 80; Status: F Test: URINE CULTURE; Value: Method: VIT2; Status: F Test: URINE CULTURE; Value: GENTAMICIN <=1 S; Status: F Test: URINE CULTURE; Value: NITROFURANTOIN >=512 R; Status: F Test: URINE CULTURE; Value: LEVOFLOXACIN 0.25 S; Status: F Test: URINE CULTURE; Value: TOBRAMYCIN <=1 S; Status: F Test: URINE CULTURE; Value: CEFTAZIDIME <=1 S; Status: F Test: URINE CULTURE; Value: PIPERACILLIN/TAZOBACTAM <=4 S; Status: F Test: URINE CULTURE; Value: MEROPENEM <=0.25 S; Status: F Test: URINE CULTURE; Value: CEFEPIME <=1 S; Status: F Lab Order: -Blood Culture; SPEC'M 09/07/16 11:47 Test: BLOOD CULTURE; Value: No growth after 24 hours . All specimens observed; Status: F Test: BLOOD CULTURE; Value: for 5 days. Results final at that time.; Status: F Test: BLOOD CULTURE; Value: No Growth after 48 hours. All Specimens observed; Status: F Test: BLOOD CULTURE; Value: for 7 days. Results final at that time.; Status: F Lab Order: Lactic Acid (Gomez tube on ice); SPEC'M 09/07/16 12:38 Test: LACTIC ACID SEPSIS PROTOCOL; Value: 1.2; Range: 0.4-2.0; Units: MMOL/L; Status: F Lab Order: BLOOD CULTURES; SPEC'M 09/07/16 12:38 Test: BLOOD CULTURE; Value: No growth after 24 hours . All specimens observed; Status: F Test: BLOOD CULTURE; Value: for 5 days. Results final at that time.; Status: F Test: BLOOD CULTURE; Value: No Growth after 48 hours. All Specimens observed; Status: F Test: BLOOD CULTURE; Value: for 7 days. Results final at that time.; Status: F Radiology Order: Chest, 1 View Test: Chest, 1 View REASON FOR EXAMINATION: Cough; Clinical: Cough .; ; Comparison: 10/17/2013 .; ; Findings:; The mediastinum and cardiac silhouette are stable and within normal limits for; portable technique. The lung navarro are clear without acute consolidation,; effusion, or pneumothorax. Skeletal structures are intact.; ; Impression:; Normal portable chest x-ray; ; ; Signed by; Ethan Leone MD 09/07/2016 12:40 P; Outcome: 13:35 Discharge ordered by Provider. cc10 13:44 Discharge Assessment: Patient awake, alert and oriented x 3. No cognitive and/or kc3 functional deficits noted. Patient verbalized understanding of disposition instructions. patient administered narcotics - no. The following High Risk Discharge criteria are identified: None. Discharged to home via wheelchair, with family. Condition: stable. Discharge instructions given to patient, Instructed on discharge instructions, follow up and referral plans. medication usage, Demonstrated understanding of instructions, medications, Pt was receptive of discharge instructions/ teaching. Prescriptions given X 1. No special radiology studies were completed. Property :Personal belongings accompany Pt. 13:47 Patient left the ED. kc3 Signatures: Dispatcher [employer] EDMS Ana Gonzalez, Reg Reg gb Shelley Bruner,RN RN rs3 Radha Bocanegra, LINDA RN Juvencio Zambrano mm15 Inocente Espinosa, MAT MAKER MAT MAKER jlf Glenn Montalvo, PA-C PA-C cc10 Bethany Kim,LINDA MCKEON ms18 Juaquin Manuel, MAT MAKER MAT MAKER jrd Anjelica Barboza,RN RN kc3 Chart Complete MTDD
--- NOTE | 2016-09-11 10:07 | EDDOCDS ---
Physician Documentation [facility] Name: Patricia Rea Age: 76 yrs Sex: Female : 1940 Arrival Date: 09/07/2016 Time: 11:18 Bed I3 / M3 Private MD: Dean Sheffield P. Disposition: 09/07/16 13:35 Discharged to Home/Self Care. Impression: Nausea and vomiting, Diarrhea, unspecified. - Condition is Stable. - Discharge Instructions: Viral Gastroenteritis. - Prescriptions for ZOFRAN ODT 4 mg - dissolve 1 tablet by ORAL route 4 times per day As needed do not chew, do not swallow whole; 10 tablet. - Medication Reconciliation form. - Follow up: Dean Sheffield; When: 1 - 2 days; Reason: Wound/Symptom Recheck, Recheck today's complaints, Worsening of conditions, Continuance of care. - Problem is chronic. - Symptoms have improved. Historical: - Allergies: SULFA (SULFONAMIDES); Phenobarbital; Latex; - Home Meds: 1. Vitamin D2 50,000 unit oral cap once wkly (Last dose: 09/07/2016) 2. aspirin 81 mg Oral chew 1 tab once daily (Last dose: 09/06/2016 08:00) 3. Crestor 20 mg Oral tab 1 tab nightly (Last dose: 09/06/2016 20:00) 4. hydroxyzine HCl 10 mg Oral tab twice a day (Last dose: 09/06/2016 20:00) 5. Klor-Con 10 10 mEq Oral TbER 1 tab once daily (Last dose: 09/06/2016 08:00) 6. ibandronate 150 mg oral tab 1 tab once moly (Last dose: 08/13/2016) 7. Synthroid 137 mcg Oral tab 1 tab once daily (Last dose: 09/06/2016 08:00) 8. magnesium gluconate 500 mg oral daily (Last dose: 09/06/2016 08:00) 9. Zofran (as hydrochloride) 4 mg Oral tab (Last dose: 09/07/2016 10:00) 10. antibiotic for cellulitis twice a day 11. o2 3L NC PRN - PMHx: cellulitis; Hypercholesterolemia; Hypertension; Hypothyroidism; Kidney stones; Osteoporosis; - PSHx: Laminectomy. lumbar; Hysterectomy; Appendectomy; Stents, Coronary; D & C; - Social history: Smoking status: Patient states was never smoker of tobacco. No barriers to communication noted, The patient speaks fluent [place], Speaks appropriately for age. - Family history: Not pertinent. - : The pt / caregiver states he / she is not on anticoagulants. Home medication list is obtained from the patient. - Exposure Risk Screening:: None identified. Vital Signs: 09/07 11:20 BP 148 / 82 RA Sitting (auto/reg); Pulse 85; Resp 20; Temp 99.6(O); Pulse Ox 100% on 3 jrd lpm NC; Weight 124.28 kg / 273.99 lbs (R); Height 5 ft. 0 in. (152.40 cm) (R); Pain 9/10; 13:29 BP 170 / 71; Pulse 89; Resp 20; Temp 99.5; Pulse Ox 92% ; Pain 8/10; jlf 11:20 Body Mass Index 53.51 (124.28 kg, 152.40 cm) jrd MDM: 11:38 Ondansetron 4 mg IVP once ordered. cc10 11:38 IV Saline Lock ordered. cc10 11:38 Undress patient appropriately for examination ordered. cc10 11:38 -Blood Culture (Adults Only), peripheral from different site, or from device/port/PICC cc10 etc. if present ordered. 11:38 NS 0.9% 1000 ml IV at 250 mL/hr continuous ordered. cc10 11:40 Basic Metabolic Profile Ordered. EDMS 11:40 CBC with Diff Ordered. EDMS 11:40 Lipase Ordered. EDMS 11:40 Liver Profile Ordered. EDMS 11:40 Urinalysis Ordered. EDMS 11:40 Urine Culture Ordered. EDMS 11:40 -Blood Culture Ordered. EDMS 11:40 Lactic Acid (Gomez tube on ice) Ordered. EDMS 11:41 NOTHING BY MOUTH+DIET ordered. EDMS 11:41 Chest, 1 View Ordered. EDMS 11:41 -Blood Culture (Adults Only), peripheral from different site, or from device/port/PICC ar3 etc. if present complete. 11:43 BLOOD CULTURES Ordered. EDMS 12:49 Financial registration complete. mm15 13:15 [facility] [place] was scanned into [employer] and attached to record. mm15 13:22 Basic Metabolic Profile Reviewed. cc10 13:22 CBC with Diff Reviewed. cc10 13:22 Liver Profile Reviewed. cc10 13:22 Urinalysis Reviewed. cc10 13:22 Lipase Reviewed. cc10 13:22 Lactic Acid (Gomez tube on ice) Reviewed. cc10 13:22 Chest, 1 View Reviewed. cc10 13:24 Vital Signs ordered. cc10 09/08 10:31 T-Sheet-- Draft Copy was scanned into [employer] and attached to record. gb Administered Medications: 09/07 12:13 Drug: NS 0.9% 1000 ml [sodium chloride 0.9 % intravenous solution] Route: IV; Rate: 250 rs3 mL/hr; Site: right hand; 12:14 Drug: Ondansetron 4 mg [ondansetron HCl 2 mg/mL intravenous solution (2 mL)] Route: rs3 IVP; Site: left hand; Signatures: Dispatcher [employer] EDMS Ana Gonzalez, Reg Reg gb Garrett Galvana, PICTURE FRAMER PICTURE FRAMER ar3 Radha Bocanegra, LINDA RN ttJuvencio Robb mm15 Glenn Montalvo, PA-C PA-C cc10 Anjelica Barboza RN RN kc3 Shelley Bruner RN rs3 The chart was reviewed and I authenticate all verbal orders and agree with the evaluation and treatment provided.Attachments: 13:15 [facility] [place] Agreement mm15 09/08 10:31 T-Sheet-- Draft Copy gb MTDD
--- NOTE | 2016-09-11 10:07 | EDDOCDS ---
Physician Documentation [facility] Name: Patricia Rea Age: 76 yrs Sex: Female : 1940 Arrival Date: 09/07/2016 Time: 11:18 Bed I3 / M3 Private MD: Dean Sheffield P. Disposition: 09/07/16 13:35 Discharged to Home/Self Care. Impression: Nausea and vomiting, Diarrhea, unspecified. - Condition is Stable. - Discharge Instructions: Viral Gastroenteritis. - Prescriptions for ZOFRAN ODT 4 mg - dissolve 1 tablet by ORAL route 4 times per day As needed do not chew, do not swallow whole; 10 tablet. - Medication Reconciliation form. - Follow up: Dean Sheffield; When: 1 - 2 days; Reason: Wound/Symptom Recheck, Recheck today's complaints, Worsening of conditions, Continuance of care. - Problem is chronic. - Symptoms have improved. Historical: - Allergies: SULFA (SULFONAMIDES); Phenobarbital; Latex; - Home Meds: 1. Vitamin D2 50,000 unit oral cap once wkly (Last dose: 09/07/2016) 2. aspirin 81 mg Oral chew 1 tab once daily (Last dose: 09/06/2016 08:00) 3. Crestor 20 mg Oral tab 1 tab nightly (Last dose: 09/06/2016 20:00) 4. hydroxyzine HCl 10 mg Oral tab twice a day (Last dose: 09/06/2016 20:00) 5. Klor-Con 10 10 mEq Oral TbER 1 tab once daily (Last dose: 09/06/2016 08:00) 6. ibandronate 150 mg oral tab 1 tab once moly (Last dose: 08/13/2016) 7. Synthroid 137 mcg Oral tab 1 tab once daily (Last dose: 09/06/2016 08:00) 8. magnesium gluconate 500 mg oral daily (Last dose: 09/06/2016 08:00) 9. Zofran (as hydrochloride) 4 mg Oral tab (Last dose: 09/07/2016 10:00) 10. antibiotic for cellulitis twice a day 11. o2 3L NC PRN - PMHx: cellulitis; Hypercholesterolemia; Hypertension; Hypothyroidism; Kidney stones; Osteoporosis; - PSHx: Laminectomy. lumbar; Hysterectomy; Appendectomy; Stents, Coronary; D & C; - Social history: Smoking status: Patient states was never smoker of tobacco. No barriers to communication noted, The patient speaks fluent [place], Speaks appropriately for age. - Family history: Not pertinent. - : The pt / caregiver states he / she is not on anticoagulants. Home medication list is obtained from the patient. - Exposure Risk Screening:: None identified. Vital Signs: 09/07 11:20 BP 148 / 82 RA Sitting (auto/reg); Pulse 85; Resp 20; Temp 99.6(O); Pulse Ox 100% on 3 jrd lpm NC; Weight 124.28 kg / 273.99 lbs (R); Height 5 ft. 0 in. (152.40 cm) (R); Pain 9/10; 13:29 BP 170 / 71; Pulse 89; Resp 20; Temp 99.5; Pulse Ox 92% ; Pain 8/10; jlf 11:20 Body Mass Index 53.51 (124.28 kg, 152.40 cm) jrd MDM: 11:38 Ondansetron 4 mg IVP once ordered. cc10 11:38 IV Saline Lock ordered. cc10 11:38 Undress patient appropriately for examination ordered. cc10 11:38 -Blood Culture (Adults Only), peripheral from different site, or from device/port/PICC cc10 etc. if present ordered. 11:38 NS 0.9% 1000 ml IV at 250 mL/hr continuous ordered. cc10 11:40 Basic Metabolic Profile Ordered. EDMS 11:40 CBC with Diff Ordered. EDMS 11:40 Lipase Ordered. EDMS 11:40 Liver Profile Ordered. EDMS 11:40 Urinalysis Ordered. EDMS 11:40 Urine Culture Ordered. EDMS 11:40 -Blood Culture Ordered. EDMS 11:40 Lactic Acid (Gomez tube on ice) Ordered. EDMS 11:41 NOTHING BY MOUTH+DIET ordered. EDMS 11:41 Chest, 1 View Ordered. EDMS 11:41 -Blood Culture (Adults Only), peripheral from different site, or from device/port/PICC ar3 etc. if present complete. 11:43 BLOOD CULTURES Ordered. EDMS 12:49 Financial registration complete. mm15 13:15 [facility] [place] Agreement was scanned into [employer] and attached to record. mm15 13:22 Basic Metabolic Profile Reviewed. cc10 13:22 CBC with Diff Reviewed. cc10 13:22 Liver Profile Reviewed. cc10 13:22 Urinalysis Reviewed. cc10 13:22 Lipase Reviewed. cc10 13:22 Lactic Acid (Gomez tube on ice) Reviewed. cc10 13:22 Chest, 1 View Reviewed. cc10 13:24 Vital Signs ordered. cc10 09/08 10:31 T-Sheet-- Draft Copy was scanned into [employer] and attached to record. gb Administered Medications: 09/07 12:13 Drug: NS 0.9% 1000 ml [sodium chloride 0.9 % intravenous solution] Route: IV; Rate: 250 rs3 mL/hr; Site: right hand; 12:14 Drug: Ondansetron 4 mg [ondansetron HCl 2 mg/mL intravenous solution (2 mL)] Route: rs3 IVP; Site: left hand; Signatures: Dispatcher [employer] EDMS Ana Gonzalez, Reg Reg gb Garrett Galvana, SPRINKLER FITTER HELPER SPRINKLER FITTER HELPER ar3 Radha Bocanegra, LINDA RN ttJuvencio Robb mm15 Glenn Montalvo, PA-C PA-C cc10 Anjelica Barboza RN RN kc3 Shelley Bruner RN rs3 The chart was reviewed and I authenticate all verbal orders and agree with the evaluation and treatment provided.Attachments: 13:15 [facility] [place] Agreement mm15 09/08 10:31 T-Sheet-- Draft Copy gb MTDD
--- NOTE | 2016-09-11 10:08 | EDDOCDS ---
Nurse's Notes [facility] Name: Patricia Rea Age: 76 yrs Sex: Female : 1940 Arrival Date: 09/07/2016 Time: 11:18 Bed I3 / M3 Private MD: Dean Sheffield P. Diagnosis: Nausea and vomiting;Diarrhea, unspecified Presentation: 09/07 11:23 Presenting complaint: Patient states: n/v/d since this morning and cough x3 days. Abd ttb pain. Adult Sepsis Screening: The patient does not have new or worsening altered mentation. Patient's respiratory rate is less than 22. Systolic blood pressure is greater than 100. Patient has a qSOFA score of 0- Negative Sepsis Screen. Suicide/Homicide risk assessment- the patient denies having any suicidal and/or homicidal ideations and does not present with any other emotional, behavioral or mental health complaints. Status: Patient is not a service loss control consultant or dependent. Transition of care: patient was not received from another setting of care. 11:23 Acuity: ERIK Level 3 ttb 11:23 Method Of Arrival: Walkin/Carried/Asstd ttb Triage Assessment: 11:27 General: Appears in no apparent distress, obese, well nourished, Behavior is ttb appropriate for age, cooperative, pleasant. Pain: Location: headache, abd pain. Neurological: Level of Consciousness is awake, alert. Cardiovascular: Chest pain is denied. Respiratory: No deficits noted. Airway is patent Respiratory effort is even, unlabored, Denies cough, shortness of breath. Respiratory: Reports shortness of breath at rest on exertion cough that is. GI: Reports diarrhea, lower abdominal pain, upper abdominal pain, nausea, vomiting. Derm: Skin is normal. Injury Description: No known injury. Historical: - Allergies: SULFA (SULFONAMIDES); Phenobarbital; Latex; - Home Meds: 1. Vitamin D2 50,000 unit oral cap once wkly (Last dose: 09/07/2016) 2. aspirin 81 mg Oral chew 1 tab once daily (Last dose: 09/06/2016 08:00) 3. Crestor 20 mg Oral tab 1 tab nightly (Last dose: 09/06/2016 20:00) 4. hydroxyzine HCl 10 mg Oral tab twice a day (Last dose: 09/06/2016 20:00) 5. Klor-Con 10 10 mEq Oral TbER 1 tab once daily (Last dose: 09/06/2016 08:00) 6. ibandronate 150 mg oral tab 1 tab once moly (Last dose: 08/13/2016) 7. Synthroid 137 mcg Oral tab 1 tab once daily (Last dose: 09/06/2016 08:00) 8. magnesium gluconate 500 mg oral daily (Last dose: 09/06/2016 08:00) 9. Zofran (as hydrochloride) 4 mg Oral tab (Last dose: 09/07/2016 10:00) 10. antibiotic for cellulitis twice a day 11. o2 3L NC PRN - PMHx: cellulitis; Hypercholesterolemia; Hypertension; Hypothyroidism; Kidney stones; Osteoporosis; - PSHx: Laminectomy. lumbar; Hysterectomy; Appendectomy; Stents, Coronary; D & C; - Social history: Smoking status: Patient states was never smoker of tobacco. No barriers to communication noted, The patient speaks fluent Hebrew, Speaks appropriately for age. - Family history: Not pertinent. - : The pt / caregiver states he / she is not on anticoagulants. Home medication list is obtained from the patient. - Exposure Risk Screening:: None identified. Screenin:16 Screening information is obtained from the patient. Fall risk: No risks identified. rs3 Assistance ADL's: requires no assistance with activities of daily living. Abuse/DV Screen: The patient / caregiver reports he/she is: not in a situation that causes fear, pain or injury. Nutritional screening: No deficits noted. Advance Directives: Currently, there is. home support is adequate. Assessment: 12:15 General: Appears in no apparent distress, Behavior is appropriate for age, cooperative. rs3 Pain: Location: abdomen. Neurological: Level of Consciousness is awake, alert, Oriented to person, place, time. Respiratory: Airway is patent Breath sounds are diminished bilaterally. Reports shortness of breath on exertion. GI: Abdomen is obese, Bowel sounds present X 4 quads. Abd is soft and non tender X 4 quads. Derm: Skin is pink, warm & dry. 13:09 General: Appears in no apparent distress, resting comfortable on stretcher. denies of rs3 pain/distress. family at bedside. nausea improved after the nausea med. waiting on test results. . 13:43 General: Appears in no apparent distress, comfortable, Behavior is appropriate for age, kc3 cooperative. General: Family at bedside. . Respiratory: Respiratory effort is even, unlabored. Derm: Skin is pink, warm & dry. Vital Signs: 11:20 BP 148 / 82 RA Sitting (auto/reg); Pulse 85; Resp 20; Temp 99.6(O); Pulse Ox 100% on 3 jrd lpm NC; Weight 124.28 kg (R); Height 5 ft. 0 in. (152.40 cm) (R); Pain 9/10; 13:29 BP 170 / 71; Pulse 89; Resp 20; Temp 99.5; Pulse Ox 92% ; Pain 8/10; jlf 11:20 Body Mass Index 53.51 (124.28 kg, 152.40 cm) [facility] Vitals: 11:20 Log In Time: September 07, 2016 at 11:03. [facility] ED Course: 11:20 Patient visited by Juaquin Manuel PCA. jrd 11:20 Dean Sheffield is Private Physician. jrd 11:20 Patient moved to Waiting jrd 11:21 Patient visited by Juaquin Manuel PCA. jrd 11:21 Patient moved to Pre RCE jrd 11:24 Triage Initiated ttb 11:25 Glenn Montalvo PA-C is PHCP. cc10 11:25 Alireza Smallwood MD is Attending Physician. cc10 11:32 Patient moved to Triage 1 ms18 11:34 Patient visited by Glenn Montalvo PA-C. cc10 11:34 Patient visited by Glenn Montalvo PA-C. cc10 11:44 Patient moved to I3 / M3 rs3 11:47 Patient visited by Inocente Espinosa PCA. jlf 12:14 -Blood Culture Sent. rs3 12:14 CBC with Diff Sent. rs3 12:18 Patient visited by Inocente Espinosa PCA. jlf 13:04 Chest, 1 View Returned. EDMS 13:09 Patient visited by Shelley Bruner RN. rs3 13:15 [facility] Payment Agreement was scanned into [employer] and attached to record. mm15 13:35 Dean Sheffield is Referral Physician. cc10 13:44 Inserted saline lock: 22 gauge in right and blood collected. The patient tolerated the kc3 procedure well. wrist, placed by LINDA Vera. No procedures done that require assistance. 13:46 The patient / caregiver is instructed regarding the plan of care and ED course. kc3 13:46 Discontinued IV lock intact, bleeding controlled, pressure dressing applied, No kc3 redness/swelling at site. 09/08 10:31 T-Sheet-- Draft Copy was scanned into [employer] and attached to record. gb Administered Medications: 09/07 12:13 Drug: NS 0.9% 1000 ml [sodium chloride 0.9 % intravenous solution] Route: IV; Rate: 250 rs3 mL/hr; Site: right hand; 12:14 Drug: Ondansetron 4 mg [ondansetron HCl 2 mg/mL intravenous solution (2 mL)] Route: rs3 IVP; Site: left hand; Order Results: Lab Order: Basic Metabolic Profile; SPEC'M 09/07/16 11:47 Test: GLUCOSE, FASTING; Value: 113; Range: 83-110; Abnormal: Above high normal; Units: MG/DL; Status: F Test: BLOOD UREA NITROGEN; Value: 18; Range: 7-18; Units: MG/DL; Status: F Test: CREATININE FOR GFR; Value: 0.97; Range: 0.55-1.02; Units: MG/DL; Status: F Test: GLOMERULAR FILTRATION RATE; Value: 59.1; Range: >39; Status: F Test: SODIUM LEVEL; Value: 142; Range: 136-145; Units: MEQ/L; Status: F Test: POTASSIUM SERUM; Value: 4.6; Range: 3.5-5.1; Units: MEQ/L; Status: F Test: CHLORIDE LEVEL; Value: 108; Range: 98-107; Abnormal: Above high normal; Units: MEQ/L; Status: F Test: CARBON DIOXIDE LEVEL; Value: 23; Range: 21-32; Units: MEQ/L; Status: F Test: ANION GAP; Value: 11; Range: 8-16; Units: MEQ/L; Status: F Test: CALCIUM LEVEL; Value: 9.1; Range: 8.8-10.2; Units: MG/DL; Status: F Test Note: ; Units are mL/min/1.73 m2 Chronic Kidney Disease Staging per NKF: Stage I & II GFR >=60 Normal to Mildly Decreased Stage III GFR 30-59 Moderately Decreased Stage IV GFR 15-29 Severely Decreased Stage V GFR <15 Very Little GFR Left ESRD GFR <15 on MIXER LEVER OPERATOR Lab Order: CBC with Diff; JENNIFER'Yenny 09/07/16 11:47 Test: WHITE BLOOD COUNT; Value: 9.2; Range: 4.0-10.0; Units: K/mm3; Status: F Test: RED BLOOD COUNT; Value: 4.93; Range: 4.00-5.40; Units: M/mm3; Status: F Test: HEMOGLOBIN; Value: 13.7; Range: 12.0-16.0; Units: g/dl; Status: F Test: HEMATOCRIT; Value: 43.2; Range: 36.0-47.0; Units: %; Status: F Test: MEAN CORPUSCULAR VOLUME; Value: 87.7; Range: 80.0-96.0; Units: fl; Status: F Test: MEAN CORPUSCULAR HEMOGLOBIN; Value: 27.8; Range: 27.0-33.0; Units: pg; Status: F Test: MEAN CORPUSCULAR HGB CONC; Value: 31.7; Range: 32.0-36.5; Abnormal: Below low normal; Units: g/dl; Status: F Test: RED CELL DISTRIBUTION WIDTH; Value: 14.2; Range: 11.5-14.5; Units: %; Status: F Test: PLATELET COUNT, AUTOMATED; Value: 277; Range: 150-450; Units: k/mm3; Status: F Test: NEUTROPHILS %; Value: 83.8; Range: 36.0-66.0; Abnormal: Above high normal; Units: %; Status: F Test: LYMPH %; Value: 6.9; Range: 24.0-44.0; Abnormal: Below low normal; Units: %; Status: F Test: MONO %; Value: 6.2; Range: 0.0-5.0; Abnormal: Above high normal; Units: %; Status: F Test: EOS %; Value: 1.5; Range: 0.0-3.0; Units: %; Status: F Test: BASO %; Value: 0.5; Range: 0.0-1.0; Units: %; Status: F Test: LARGE UNSTAINED CELL %; Value: 1.2; Range: 0.0-4.0; Units: %; Status: F Test: NEUTROPHILS #; Value: 7.7; Range: 1.8-7.7; Units: K/mm3; Status: F Test: LYMPH #; Value: 0.7; Range: 1.5-4.5; Abnormal: Below low normal; Units: K/mm3; Status: F Test: MONO #; Value: 0.6; Range: 0.0-0.8; Units: K/mm3; Status: F Test: EOS #; Value: 0.1; Range: 0.0-0.50; Units: K/mm3; Status: F Test: BASO #; Value: 0.0; Range: 0.0-0.2; Units: K/mm3; Status: F Test: LARGE UNSTAINED CELL #; Value: 0.1; Range: 0.0-0.4; Units: K/mm3; Status: F Lab Order: Lipase; SPEC' 09/07/16 11:47 Test: LIPASE; Value: 338; Range: 73-393; Units: U/L; Status: F Lab Order: Liver Profile; SPEC' 09/07/16 11:47 Test: AST/SGOT; Value: 23; Range: 15-37; Units: U/L; Status: F Test: ALT/SGPT; Value: 20; Range: 12-78; Units: U/L; Status: F Test: ALKALINE PHOSPHATASE; Value: 95; Range: 45-117; Units: U/L; Status: F Test: BILIRUBIN,TOTAL; Value: 0.2; Range: 0.2-1.0; Units: MG/DL; Status: F Test: BILIRUBIN,DIRECT; Value: < 0.1; Range: 0.0-0.2; Units: MG/DL; Status: F Test: TOTAL PROTEIN; Value: 7.3; Range: 6.4-8.2; Units: GM/DL; Status: F Test: ALBUMIN; Value: 3.2; Range: 3.2-5.2; Units: GM/DL; Status: F Test: ALBUMIN/GLOBULIN RATIO; Value: 0.78; Range: 1.00-1.93; Abnormal: Below low normal; Status: F Lab Order: Urinalysis; SPEC'M 09/07/16 11:47 Test: APPEARANCE, URINE; Value: HAZY; Range: CLEAR; Status: F Test: COLOR, URINE; Value: YELLOW; Range: YELLOW; Status: F Test: PH,URINE; Value: 6.0; Range: 5.0-9.0; Units: UNITS; Status: F Test: SPECIFIC GRAVITY URINE AUTO; Value: 1.014; Range: 1.002-1.035; Status: F Test: PROTEIN, URINE AUTO; Value: 1+; Range: NEGATIVE; Abnormal: Above high normal; Units: mg/dL; Status: F Test: GLUCOSE, URINE (UA) AUTO; Value: NEGATIVE; Range: NEGATIVE; Units: mg/dL; Status: F Test: KETONE, URINE AUTO; Value: NEGATIVE; Range: NEGATIVE; Units: mg/dL; Status: F Test: UROBILINOGEN, URINE AUTO; Value: 0.2; Range: 0.0-2.0; Units: mg/dL; Status: F Test: BILIRUBIN, URINE AUTO; Value: NEGATIVE; Range: NEGATIVE; Status: F Test: NITRITE, URINE AUTO; Value: NEGATIVE; Range: NEGATIVE; Status: F Test: LEUKOCYTE ESTERASE, URINE AUTO; Value: NEGATIVE; Range: NEGATIVE; Status: F Test: BLOOD, URINE BLOOD; Value: 2+; Range: NEGATIVE; Abnormal: Above high normal; Status: F Test: WBC, URINE AUTO; Value: 13; Range: 0-3; Abnormal: Above high normal; Units: /HPF; Status: F Test: RBC, URINE AUTO; Value: 173; Range: 0-3; Abnormal: Above high normal; Units: /HPF; Status: F Test: BACTERIA, URINE AUTO; Value: NEGATIVE; Range: NEGATIVE; Status: F Test: SQUAMOUS EPITHELIAL CELL UR AU; Value: 0; Range: 0-6; Units: /HPF; Status: F Test: MUCUS, URINE; Value: SMALL; Range: NEGATIVE; Status: F Test: HYALINE CAST, URINE AUTO; Value: 0; Range: 0-1; Units: /LPF; Status: F Lab Order: Urine Culture; SPEC'M 09/07/16 11:48 Test: URINE CULTURE; Value: <EXTERNAL COMMENT eCWMed> FULL REPORT IN LAB NOTES (eCW and Medent).; Status: F Test: URINE CULTURE; Value: ORGANISM 1: PSEUDOMONAS AERUGINOSA; Status: F Test: URINE CULTURE; Value: PSEUDOMONAS AERUGINOSA; Status: F Test: URINE CULTURE; Value: COLONY COUNT CFU/ml 30,000; Status: F Test: URINE CULTURE; Value: GRAM NEG SENSI - VITEK 80; Status: F Test: URINE CULTURE; Value: Method: VIT2; Status: F Test: URINE CULTURE; Value: GENTAMICIN <=1 S; Status: F Test: URINE CULTURE; Value: NITROFURANTOIN >=512 R; Status: F Test: URINE CULTURE; Value: LEVOFLOXACIN 0.25 S; Status: F Test: URINE CULTURE; Value: TOBRAMYCIN <=1 S; Status: F Test: URINE CULTURE; Value: CEFTAZIDIME <=1 S; Status: F Test: URINE CULTURE; Value: PIPERACILLIN/TAZOBACTAM <=4 S; Status: F Test: URINE CULTURE; Value: MEROPENEM <=0.25 S; Status: F Test: URINE CULTURE; Value: CEFEPIME <=1 S; Status: F Lab Order: -Blood Culture; SPEC'M 09/07/16 11:47 Test: BLOOD CULTURE; Value: No growth after 48 hours . All specimens observed; Status: F Test: BLOOD CULTURE; Value: for 5 days. Results final at that time.; Status: F Test: BLOOD CULTURE; Status: F Test: BLOOD CULTURE; Value: No growth after 24 hours . All specimens observed; Status: F Test: BLOOD CULTURE; Value: for 5 days. Results final at that time.; Status: F Test: BLOOD CULTURE; Value: No Growth after 72 hours. All specimens observed; Status: F Test: BLOOD CULTURE; Value: for 7 days. Results final at that time.; Status: F Lab Order: Lactic Acid (Gomez tube on ice); SPEC'M 09/07/16 12:38 Test: LACTIC ACID SEPSIS PROTOCOL; Value: 1.2; Range: 0.4-2.0; Units: MMOL/L; Status: F Lab Order: BLOOD CULTURES; SPEC'M 09/07/16 12:38 Test: BLOOD CULTURE; Value: No growth after 48 hours . All specimens observed; Status: F Test: BLOOD CULTURE; Value: for 5 days. Results final at that time.; Status: F Test: BLOOD CULTURE; Status: F Test: BLOOD CULTURE; Value: No growth after 24 hours . All specimens observed; Status: F Test: BLOOD CULTURE; Value: for 5 days. Results final at that time.; Status: F Test: BLOOD CULTURE; Value: No Growth after 72 hours. All specimens observed; Status: F Test: BLOOD CULTURE; Value: for 7 days. Results final at that time.; Status: F Radiology Order: Chest, 1 View Test: Chest, 1 View REASON FOR EXAMINATION: Cough; Clinical: Cough .; ; Comparison: 10/17/2013 .; ; Findings:; The mediastinum and cardiac silhouette are stable and within normal limits for; portable technique. The lung navarro are clear without acute consolidation,; effusion, or pneumothorax. Skeletal structures are intact.; ; Impression:; Normal portable chest x-ray; ; ; Signed by; Ethan Leone MD 09/07/2016 12:40 P; Outcome: 13:35 Discharge ordered by Provider. cc10 13:44 Discharge Assessment: Patient awake, alert and oriented x 3. No cognitive and/or kc3 functional deficits noted. Patient verbalized understanding of disposition instructions. patient administered narcotics - no. The following High Risk Discharge criteria are identified: None. Discharged to home via wheelchair, with family. Condition: stable. Discharge instructions given to patient, Instructed on discharge instructions, follow up and referral plans. medication usage, Demonstrated understanding of instructions, medications, Pt was receptive of discharge instructions/ teaching. Prescriptions given X 1. No special radiology studies were completed. Property :Personal belongings accompany Pt. 13:47 Patient left the ED. kc3 Addendum: 09/11/2016 10:06 Narrative: Urine culture results reviewed with Dr. Rodriguez and report to be faxed to [facility] PCP. Signatures: Dispatcher [employer] EDMS Justina Fang RN RN [facility] Ana Gonzalez, Earnest Reg Shelley Fulton RN RN rs3 Radha Bocanegra RN RN ttb McGrath, Marlynn mm15 Inocente Espinosa, DEALER SALES REP DEALER SALES REP jlf Glenn Montalvo, PA-C PA-C cc10 Bethany Kim RN RN [id number] Juaquin Manuel, DEALER SALES REP DEALER SALES REP jrd Barboza,Anjelica,RN RN kc3 MTDD
--- NOTE | 2016-09-11 10:09 | EDDOCDS ---
Physician Documentation [facility] Name: Patricia Rea Age: 76 yrs Sex: Female : 1940 Arrival Date: 09/07/2016 Time: 11:18 Bed I3 / M3 Private MD: Dean Sehffield P. Disposition: 09/07/16 13:35 Discharged to Home/Self Care. Impression: Nausea and vomiting, Diarrhea, unspecified. - Condition is Stable. - Discharge Instructions: Viral Gastroenteritis. - Prescriptions for ZOFRAN ODT 4 mg - dissolve 1 tablet by ORAL route 4 times per day As needed do not chew, do not swallow whole; 10 tablet. - Medication Reconciliation form. - Follow up: Dean Sheffield; When: 1 - 2 days; Reason: Wound/Symptom Recheck, Recheck today's complaints, Worsening of conditions, Continuance of care. - Problem is chronic. - Symptoms have improved. Historical: - Allergies: SULFA (SULFONAMIDES); Phenobarbital; Latex; - Home Meds: 1. Vitamin D2 50,000 unit oral cap once wkly (Last dose: 09/07/2016) 2. aspirin 81 mg Oral chew 1 tab once daily (Last dose: 09/06/2016 08:00) 3. Crestor 20 mg Oral tab 1 tab nightly (Last dose: 09/06/2016 20:00) 4. hydroxyzine HCl 10 mg Oral tab twice a day (Last dose: 09/06/2016 20:00) 5. Klor-Con 10 10 mEq Oral TbER 1 tab once daily (Last dose: 09/06/2016 08:00) 6. ibandronate 150 mg oral tab 1 tab once moly (Last dose: 08/13/2016) 7. Synthroid 137 mcg Oral tab 1 tab once daily (Last dose: 09/06/2016 08:00) 8. magnesium gluconate 500 mg oral daily (Last dose: 09/06/2016 08:00) 9. Zofran (as hydrochloride) 4 mg Oral tab (Last dose: 09/07/2016 10:00) 10. antibiotic for cellulitis twice a day 11. o2 3L NC PRN - PMHx: cellulitis; Hypercholesterolemia; Hypertension; Hypothyroidism; Kidney stones; Osteoporosis; - PSHx: Laminectomy. lumbar; Hysterectomy; Appendectomy; Stents, Coronary; D & C; - Social history: Smoking status: Patient states was never smoker of tobacco. No barriers to communication noted, The patient speaks fluent Ghanaian, Speaks appropriately for age. - Family history: Not pertinent. - : The pt / caregiver states he / she is not on anticoagulants. Home medication list is obtained from the patient. - Exposure Risk Screening:: None identified. Vital Signs: 09/07 11:20 BP 148 / 82 RA Sitting (auto/reg); Pulse 85; Resp 20; Temp 99.6(O); Pulse Ox 100% on 3 jrd lpm NC; Weight 124.28 kg / 273.99 lbs (R); Height 5 ft. 0 in. (152.40 cm) (R); Pain 9/10; 13:29 BP 170 / 71; Pulse 89; Resp 20; Temp 99.5; Pulse Ox 92% ; Pain 8/10; jlf 11:20 Body Mass Index 53.51 (124.28 kg, 152.40 cm) jrd MDM: 11:38 Ondansetron 4 mg IVP once ordered. cc10 11:38 IV Saline Lock ordered. cc10 11:38 Undress patient appropriately for examination ordered. cc10 11:38 -Blood Culture (Adults Only), peripheral from different site, or from device/port/PICC cc10 etc. if present ordered. 11:38 NS 0.9% 1000 ml IV at 250 mL/hr continuous ordered. cc10 11:40 Basic Metabolic Profile Ordered. EDMS 11:40 CBC with Diff Ordered. EDMS 11:40 Lipase Ordered. EDMS 11:40 Liver Profile Ordered. EDMS 11:40 Urinalysis Ordered. EDMS 11:40 Urine Culture Ordered. EDMS 11:40 -Blood Culture Ordered. EDMS 11:40 Lactic Acid (Gomez tube on ice) Ordered. EDMS 11:41 NOTHING BY MOUTH+DIET ordered. EDMS 11:41 Chest, 1 View Ordered. EDMS 11:41 -Blood Culture (Adults Only), peripheral from different site, or from device/port/PICC ar3 etc. if present complete. 11:43 BLOOD CULTURES Ordered. EDMS 12:49 Financial registration complete. mm15 13:15 [facility] [place] [facility] Payment Agreement was scanned into [employer] and attached to record. mm15 13:22 Basic Metabolic Profile Reviewed. cc10 13:22 CBC with Diff Reviewed. cc10 13:22 Liver Profile Reviewed. cc10 13:22 Urinalysis Reviewed. cc10 13:22 Lipase Reviewed. cc10 13:22 Lactic Acid (Gomez tube on ice) Reviewed. cc10 13:22 Chest, 1 View Reviewed. cc10 13:24 Vital Signs ordered. cc10 09/08 10:31 T-Sheet-- Draft Copy was scanned into [employer] and attached to record. gb Administered Medications: 09/07 12:13 Drug: NS 0.9% 1000 ml [sodium chloride 0.9 % intravenous solution] Route: IV; Rate: 250 rs3 mL/hr; Site: right hand; 12:14 Drug: Ondansetron 4 mg [ondansetron HCl 2 mg/mL intravenous solution (2 mL)] Route: rs3 IVP; Site: left hand; Signatures: Dispatcher [employer] EDMS Ana Gonzalez, Reg Reg gb Monica Galvan, SCOUT SCOUT ar3 Radha Bocanegra, LINDA RN ttJuvencio Robb mm15 Glenn Montalvo, PA-C PA-C cc10 Anjelica Barboza RN RN kc3 Shelley Bruner RN rs3 The chart was reviewed and I authenticate all verbal orders and agree with the evaluation and treatment provided.Attachments: 13:15 [facility] Payment Agreement mm15 09/08 10:31 T-Sheet-- Draft Copy gb Chart Complete MTDD
--- NOTE | 2016-09-11 10:09 | EDDOCDS ---
Physician Documentation [facility] Name: Patricia Rea Age: 76 yrs Sex: Female : 1940 Arrival Date: 09/07/2016 Time: 11:18 Bed I3 / M3 Private MD: Dean Sheffield P. Disposition: 09/07/16 13:35 Discharged to Home/Self Care. Impression: Nausea and vomiting, Diarrhea, unspecified. - Condition is Stable. - Discharge Instructions: Viral Gastroenteritis. - Prescriptions for ZOFRAN ODT 4 mg - dissolve 1 tablet by ORAL route 4 times per day As needed do not chew, do not swallow whole; 10 tablet. - Medication Reconciliation form. - Follow up: Dean Sheffield; When: 1 - 2 days; Reason: Wound/Symptom Recheck, Recheck today's complaints, Worsening of conditions, Continuance of care. - Problem is chronic. - Symptoms have improved. Historical: - Allergies: SULFA (SULFONAMIDES); Phenobarbital; Latex; - Home Meds: 1. Vitamin D2 50,000 unit oral cap once wkly (Last dose: 09/07/2016) 2. aspirin 81 mg Oral chew 1 tab once daily (Last dose: 09/06/2016 08:00) 3. Crestor 20 mg Oral tab 1 tab nightly (Last dose: 09/06/2016 20:00) 4. hydroxyzine HCl 10 mg Oral tab twice a day (Last dose: 09/06/2016 20:00) 5. Klor-Con 10 10 mEq Oral TbER 1 tab once daily (Last dose: 09/06/2016 08:00) 6. ibandronate 150 mg oral tab 1 tab once moly (Last dose: 08/13/2016) 7. Synthroid 137 mcg Oral tab 1 tab once daily (Last dose: 09/06/2016 08:00) 8. magnesium gluconate 500 mg oral daily (Last dose: 09/06/2016 08:00) 9. Zofran (as hydrochloride) 4 mg Oral tab (Last dose: 09/07/2016 10:00) 10. antibiotic for cellulitis twice a day 11. o2 3L NC PRN - PMHx: cellulitis; Hypercholesterolemia; Hypertension; Hypothyroidism; Kidney stones; Osteoporosis; - PSHx: Laminectomy. lumbar; Hysterectomy; Appendectomy; Stents, Coronary; D & C; - Social history: Smoking status: Patient states was never smoker of tobacco. No barriers to communication noted, The patient speaks fluent Malagasy, Speaks appropriately for age. - Family history: Not pertinent. - : The pt / caregiver states he / she is not on anticoagulants. Home medication list is obtained from the patient. - Exposure Risk Screening:: None identified. Vital Signs: 09/07 11:20 BP 148 / 82 RA Sitting (auto/reg); Pulse 85; Resp 20; Temp 99.6(O); Pulse Ox 100% on 3 jrd lpm NC; Weight 124.28 kg / 273.99 lbs (R); Height 5 ft. 0 in. (152.40 cm) (R); Pain 9/10; 13:29 BP 170 / 71; Pulse 89; Resp 20; Temp 99.5; Pulse Ox 92% ; Pain 8/10; jlf 11:20 Body Mass Index 53.51 (124.28 kg, 152.40 cm) jrd MDM: 11:38 Ondansetron 4 mg IVP once ordered. cc10 11:38 IV Saline Lock ordered. cc10 11:38 Undress patient appropriately for examination ordered. cc10 11:38 -Blood Culture (Adults Only), peripheral from different site, or from device/port/PICC cc10 etc. if present ordered. 11:38 NS 0.9% 1000 ml IV at 250 mL/hr continuous ordered. cc10 11:40 Basic Metabolic Profile Ordered. EDMS 11:40 CBC with Diff Ordered. EDMS 11:40 Lipase Ordered. EDMS 11:40 Liver Profile Ordered. EDMS 11:40 Urinalysis Ordered. EDMS 11:40 Urine Culture Ordered. EDMS 11:40 -Blood Culture Ordered. EDMS 11:40 Lactic Acid (Gomez tube on ice) Ordered. EDMS 11:41 NOTHING BY MOUTH+DIET ordered. EDMS 11:41 Chest, 1 View Ordered. EDMS 11:41 -Blood Culture (Adults Only), peripheral from different site, or from device/port/PICC ar3 etc. if present complete. 11:43 BLOOD CULTURES Ordered. EDMS 12:49 Financial registration complete. mm15 13:15 [place] [place] Agreement was scanned into [employer] and attached to record. mm15 13:22 Basic Metabolic Profile Reviewed. cc10 13:22 CBC with Diff Reviewed. cc10 13:22 Liver Profile Reviewed. cc10 13:22 Urinalysis Reviewed. cc10 13:22 Lipase Reviewed. cc10 13:22 Lactic Acid (Gomez tube on ice) Reviewed. cc10 13:22 Chest, 1 View Reviewed. cc10 13:24 Vital Signs ordered. cc10 09/08 10:31 T-Sheet-- Draft Copy was scanned into [employer] and attached to record. gb Administered Medications: 09/07 12:13 Drug: NS 0.9% 1000 ml [sodium chloride 0.9 % intravenous solution] Route: IV; Rate: 250 rs3 mL/hr; Site: right hand; 12:14 Drug: Ondansetron 4 mg [ondansetron HCl 2 mg/mL intravenous solution (2 mL)] Route: rs3 IVP; Site: left hand; Signatures: Dispatcher [employer] EDMS Ana Gonzalez, Reg Reg gb Monica Galvan, LABORATORY AIDE LABORATORY AIDE ar3 Radha Bocanegra, LINDA RN ttJuvencio Robb mm15 Glenn Montalvo, PA-C PA-C cc10 Anjelica Barboza RN RN kc3 Shelley Bruner RN rs3 The chart was reviewed and I authenticate all verbal orders and agree with the evaluation and treatment provided.Attachments: 13:15 [facility] [place] Payment Agreement mm15 09/08 10:31 T-Sheet-- Draft Copy gb Chart Complete MTDD
--- NOTE | 2016-09-11 10:09 | EDDOCDS ---
Nurse's Notes [facility] Name: Patricia Rea Age: 76 yrs Sex: Female : 1940 Arrival Date: 09/07/2016 Time: 11:18 Bed I3 / M3 Private MD: Dean Sheffield P. Diagnosis: Nausea and vomiting;Diarrhea, unspecified Presentation: 09/07 11:23 Presenting complaint: Patient states: n/v/d since this morning and cough x3 days. Abd ttb pain. Adult Sepsis Screening: The patient does not have new or worsening altered mentation. Patient's respiratory rate is less than 22. Systolic blood pressure is greater than 100. Patient has a qSOFA score of 0- Negative Sepsis Screen. Suicide/Homicide risk assessment- the patient denies having any suicidal and/or homicidal ideations and does not present with any other emotional, behavioral or mental health complaints. Status: Patient is not a director agricultural services or dependent. Transition of care: patient was not received from another setting of care. 11:23 Acuity: ERIK Level 3 ttb 11:23 Method Of Arrival: Walkin/Carried/Asstd ttb Triage Assessment: 11:27 General: Appears in no apparent distress, obese, well nourished, Behavior is ttb appropriate for age, cooperative, pleasant. Pain: Location: headache, abd pain. Neurological: Level of Consciousness is awake, alert. Cardiovascular: Chest pain is denied. Respiratory: No deficits noted. Airway is patent Respiratory effort is even, unlabored, Denies cough, shortness of breath. Respiratory: Reports shortness of breath at rest on exertion cough that is. GI: Reports diarrhea, lower abdominal pain, upper abdominal pain, nausea, vomiting. Derm: Skin is normal. Injury Description: No known injury. Historical: - Allergies: SULFA (SULFONAMIDES); Phenobarbital; Latex; - Home Meds: 1. Vitamin D2 50,000 unit oral cap once wkly (Last dose: 09/07/2016) 2. aspirin 81 mg Oral chew 1 tab once daily (Last dose: 09/06/2016 08:00) 3. Crestor 20 mg Oral tab 1 tab nightly (Last dose: 09/06/2016 20:00) 4. hydroxyzine HCl 10 mg Oral tab twice a day (Last dose: 09/06/2016 20:00) 5. Klor-Con 10 10 mEq Oral TbER 1 tab once daily (Last dose: 09/06/2016 08:00) 6. ibandronate 150 mg oral tab 1 tab once moly (Last dose: 08/13/2016) 7. Synthroid 137 mcg Oral tab 1 tab once daily (Last dose: 09/06/2016 08:00) 8. magnesium gluconate 500 mg oral daily (Last dose: 09/06/2016 08:00) 9. Zofran (as hydrochloride) 4 mg Oral tab (Last dose: 09/07/2016 10:00) 10. antibiotic for cellulitis twice a day 11. o2 3L NC PRN - PMHx: cellulitis; Hypercholesterolemia; Hypertension; Hypothyroidism; Kidney stones; Osteoporosis; - PSHx: Laminectomy. lumbar; Hysterectomy; Appendectomy; Stents, Coronary; D & C; - Social history: Smoking status: Patient states was never smoker of tobacco. No barriers to communication noted, The patient speaks fluent Polish, Speaks appropriately for age. - Family history: Not pertinent. - : The pt / caregiver states he / she is not on anticoagulants. Home medication list is obtained from the patient. - Exposure Risk Screening:: None identified. Screenin:16 Screening information is obtained from the patient. Fall risk: No risks identified. rs3 Assistance ADL's: requires no assistance with activities of daily living. Abuse/DV Screen: The patient / caregiver reports he/she is: not in a situation that causes fear, pain or injury. Nutritional screening: No deficits noted. Advance Directives: Currently, there is. home support is adequate. Assessment: 12:15 General: Appears in no apparent distress, Behavior is appropriate for age, cooperative. rs3 Pain: Location: abdomen. Neurological: Level of Consciousness is awake, alert, Oriented to person, place, time. Respiratory: Airway is patent Breath sounds are diminished bilaterally. Reports shortness of breath on exertion. GI: Abdomen is obese, Bowel sounds present X 4 quads. Abd is soft and non tender X 4 quads. Derm: Skin is pink, warm & dry. 13:09 General: Appears in no apparent distress, resting comfortable on stretcher. denies of rs3 pain/distress. family at bedside. nausea improved after the nausea med. waiting on test results. . 13:43 General: Appears in no apparent distress, comfortable, Behavior is appropriate for age, kc3 cooperative. General: Family at bedside. . Respiratory: Respiratory effort is even, unlabored. Derm: Skin is pink, warm & dry. Vital Signs: 11:20 BP 148 / 82 RA Sitting (auto/reg); Pulse 85; Resp 20; Temp 99.6(O); Pulse Ox 100% on 3 jrd lpm NC; Weight 124.28 kg (R); Height 5 ft. 0 in. (152.40 cm) (R); Pain 9/10; 13:29 BP 170 / 71; Pulse 89; Resp 20; Temp 99.5; Pulse Ox 92% ; Pain 8/10; jlf 11:20 Body Mass Index 53.51 (124.28 kg, 152.40 cm) [facility] Vitals: 11:20 Log In Time: September 07, 2016 at 11:03. [facility] ED Course: 11:20 Patient visited by Juaquin Manuel PCA. jrd 11:20 Dean Sheffield is Private Physician. jrd 11:20 Patient moved to Waiting jrd 11:21 Patient visited by Juaquin Manuel PCA. jrd 11:21 Patient moved to Pre RCE jrd 11:24 Triage Initiated ttb 11:25 Glenn Montalvo PA-C is PHCP. cc10 11:25 Alireza Smallwood MD is Attending Physician. cc10 11:32 Patient moved to Triage 1 ms18 11:34 Patient visited by Glenn Montalvo PA-C. cc10 11:34 Patient visited by Glenn Montalvo PA-C. cc10 11:44 Patient moved to I3 / M3 rs3 11:47 Patient visited by Inocente Espinosa PCA. jlf 12:14 -Blood Culture Sent. rs3 12:14 CBC with Diff Sent. rs3 12:18 Patient visited by Inocente Espinosa PCA. jlf 13:04 Chest, 1 View Returned. EDMS 13:09 Patient visited by Shelley Bruner RN. rs3 13:15 [place] [place] Payment Agreement was scanned into [employer] and attached to record. mm15 13:35 Dean Sheffield is Referral Physician. cc10 13:44 Inserted saline lock: 22 gauge in right and blood collected. The patient tolerated the kc3 procedure well. wrist, placed by LINDA Vera. No procedures done that require assistance. 13:46 The patient / caregiver is instructed regarding the plan of care and ED course. kc3 13:46 Discontinued IV lock intact, bleeding controlled, pressure dressing applied, No kc3 redness/swelling at site. 09/08 10:31 T-Sheet-- Draft Copy was scanned into [employer] and attached to record. gb Administered Medications: 09/07 12:13 Drug: NS 0.9% 1000 ml [sodium chloride 0.9 % intravenous solution] Route: IV; Rate: 250 rs3 mL/hr; Site: right hand; 12:14 Drug: Ondansetron 4 mg [ondansetron HCl 2 mg/mL intravenous solution (2 mL)] Route: rs3 IVP; Site: left hand; Order Results: Lab Order: Basic Metabolic Profile; SPEC'M 09/07/16 11:47 Test: GLUCOSE, FASTING; Value: 113; Range: 83-110; Abnormal: Above high normal; Units: MG/DL; Status: F Test: BLOOD UREA NITROGEN; Value: 18; Range: 7-18; Units: MG/DL; Status: F Test: CREATININE FOR GFR; Value: 0.97; Range: 0.55-1.02; Units: MG/DL; Status: F Test: GLOMERULAR FILTRATION RATE; Value: 59.1; Range: >39; Status: F Test: SODIUM LEVEL; Value: 142; Range: 136-145; Units: MEQ/L; Status: F Test: POTASSIUM SERUM; Value: 4.6; Range: 3.5-5.1; Units: MEQ/L; Status: F Test: CHLORIDE LEVEL; Value: 108; Range: 98-107; Abnormal: Above high normal; Units: MEQ/L; Status: F Test: CARBON DIOXIDE LEVEL; Value: 23; Range: 21-32; Units: MEQ/L; Status: F Test: ANION GAP; Value: 11; Range: 8-16; Units: MEQ/L; Status: F Test: CALCIUM LEVEL; Value: 9.1; Range: 8.8-10.2; Units: MG/DL; Status: F Test Note: ; Units are mL/min/1.73 m2 Chronic Kidney Disease Staging per NKF: Stage I & II GFR >=60 Normal to Mildly Decreased Stage III GFR 30-59 Moderately Decreased Stage IV GFR 15-29 Severely Decreased Stage V GFR <15 Very Little GFR Left ESRD GFR <15 on DIRECTOR OF DANCE Lab Order: CBC with Diff; JENNIFER'Yenny 09/07/16 11:47 Test: WHITE BLOOD COUNT; Value: 9.2; Range: 4.0-10.0; Units: K/mm3; Status: F Test: RED BLOOD COUNT; Value: 4.93; Range: 4.00-5.40; Units: M/mm3; Status: F Test: HEMOGLOBIN; Value: 13.7; Range: 12.0-16.0; Units: g/dl; Status: F Test: HEMATOCRIT; Value: 43.2; Range: 36.0-47.0; Units: %; Status: F Test: MEAN CORPUSCULAR VOLUME; Value: 87.7; Range: 80.0-96.0; Units: fl; Status: F Test: MEAN CORPUSCULAR HEMOGLOBIN; Value: 27.8; Range: 27.0-33.0; Units: pg; Status: F Test: MEAN CORPUSCULAR HGB CONC; Value: 31.7; Range: 32.0-36.5; Abnormal: Below low normal; Units: g/dl; Status: F Test: RED CELL DISTRIBUTION WIDTH; Value: 14.2; Range: 11.5-14.5; Units: %; Status: F Test: PLATELET COUNT, AUTOMATED; Value: 277; Range: 150-450; Units: k/mm3; Status: F Test: NEUTROPHILS %; Value: 83.8; Range: 36.0-66.0; Abnormal: Above high normal; Units: %; Status: F Test: LYMPH %; Value: 6.9; Range: 24.0-44.0; Abnormal: Below low normal; Units: %; Status: F Test: MONO %; Value: 6.2; Range: 0.0-5.0; Abnormal: Above high normal; Units: %; Status: F Test: EOS %; Value: 1.5; Range: 0.0-3.0; Units: %; Status: F Test: BASO %; Value: 0.5; Range: 0.0-1.0; Units: %; Status: F Test: LARGE UNSTAINED CELL %; Value: 1.2; Range: 0.0-4.0; Units: %; Status: F Test: NEUTROPHILS #; Value: 7.7; Range: 1.8-7.7; Units: K/mm3; Status: F Test: LYMPH #; Value: 0.7; Range: 1.5-4.5; Abnormal: Below low normal; Units: K/mm3; Status: F Test: MONO #; Value: 0.6; Range: 0.0-0.8; Units: K/mm3; Status: F Test: EOS #; Value: 0.1; Range: 0.0-0.50; Units: K/mm3; Status: F Test: BASO #; Value: 0.0; Range: 0.0-0.2; Units: K/mm3; Status: F Test: LARGE UNSTAINED CELL #; Value: 0.1; Range: 0.0-0.4; Units: K/mm3; Status: F Lab Order: Lipase; SPEC' 09/07/16 11:47 Test: LIPASE; Value: 338; Range: 73-393; Units: U/L; Status: F Lab Order: Liver Profile; SPEC' 09/07/16 11:47 Test: AST/SGOT; Value: 23; Range: 15-37; Units: U/L; Status: F Test: ALT/SGPT; Value: 20; Range: 12-78; Units: U/L; Status: F Test: ALKALINE PHOSPHATASE; Value: 95; Range: 45-117; Units: U/L; Status: F Test: BILIRUBIN,TOTAL; Value: 0.2; Range: 0.2-1.0; Units: MG/DL; Status: F Test: BILIRUBIN,DIRECT; Value: < 0.1; Range: 0.0-0.2; Units: MG/DL; Status: F Test: TOTAL PROTEIN; Value: 7.3; Range: 6.4-8.2; Units: GM/DL; Status: F Test: ALBUMIN; Value: 3.2; Range: 3.2-5.2; Units: GM/DL; Status: F Test: ALBUMIN/GLOBULIN RATIO; Value: 0.78; Range: 1.00-1.93; Abnormal: Below low normal; Status: F Lab Order: Urinalysis; SPEC'M 09/07/16 11:47 Test: APPEARANCE, URINE; Value: HAZY; Range: CLEAR; Status: F Test: COLOR, URINE; Value: YELLOW; Range: YELLOW; Status: F Test: PH,URINE; Value: 6.0; Range: 5.0-9.0; Units: UNITS; Status: F Test: SPECIFIC GRAVITY URINE AUTO; Value: 1.014; Range: 1.002-1.035; Status: F Test: PROTEIN, URINE AUTO; Value: 1+; Range: NEGATIVE; Abnormal: Above high normal; Units: mg/dL; Status: F Test: GLUCOSE, URINE (UA) AUTO; Value: NEGATIVE; Range: NEGATIVE; Units: mg/dL; Status: F Test: KETONE, URINE AUTO; Value: NEGATIVE; Range: NEGATIVE; Units: mg/dL; Status: F Test: UROBILINOGEN, URINE AUTO; Value: 0.2; Range: 0.0-2.0; Units: mg/dL; Status: F Test: BILIRUBIN, URINE AUTO; Value: NEGATIVE; Range: NEGATIVE; Status: F Test: NITRITE, URINE AUTO; Value: NEGATIVE; Range: NEGATIVE; Status: F Test: LEUKOCYTE ESTERASE, URINE AUTO; Value: NEGATIVE; Range: NEGATIVE; Status: F Test: BLOOD, URINE BLOOD; Value: 2+; Range: NEGATIVE; Abnormal: Above high normal; Status: F Test: WBC, URINE AUTO; Value: 13; Range: 0-3; Abnormal: Above high normal; Units: /HPF; Status: F Test: RBC, URINE AUTO; Value: 173; Range: 0-3; Abnormal: Above high normal; Units: /HPF; Status: F Test: BACTERIA, URINE AUTO; Value: NEGATIVE; Range: NEGATIVE; Status: F Test: SQUAMOUS EPITHELIAL CELL UR AU; Value: 0; Range: 0-6; Units: /HPF; Status: F Test: MUCUS, URINE; Value: SMALL; Range: NEGATIVE; Status: F Test: HYALINE CAST, URINE AUTO; Value: 0; Range: 0-1; Units: /LPF; Status: F Lab Order: Urine Culture; SPEC'M 09/07/16 11:48 Test: URINE CULTURE; Value: <EXTERNAL COMMENT eCWMed> FULL REPORT IN LAB NOTES (eCW and Medent).; Status: F Test: URINE CULTURE; Value: ORGANISM 1: PSEUDOMONAS AERUGINOSA; Status: F Test: URINE CULTURE; Value: PSEUDOMONAS AERUGINOSA; Status: F Test: URINE CULTURE; Value: COLONY COUNT CFU/ml 30,000; Status: F Test: URINE CULTURE; Value: GRAM NEG SENSI - VITEK 80; Status: F Test: URINE CULTURE; Value: Method: VIT2; Status: F Test: URINE CULTURE; Value: GENTAMICIN <=1 S; Status: F Test: URINE CULTURE; Value: NITROFURANTOIN >=512 R; Status: F Test: URINE CULTURE; Value: LEVOFLOXACIN 0.25 S; Status: F Test: URINE CULTURE; Value: TOBRAMYCIN <=1 S; Status: F Test: URINE CULTURE; Value: CEFTAZIDIME <=1 S; Status: F Test: URINE CULTURE; Value: PIPERACILLIN/TAZOBACTAM <=4 S; Status: F Test: URINE CULTURE; Value: MEROPENEM <=0.25 S; Status: F Test: URINE CULTURE; Value: CEFEPIME <=1 S; Status: F Lab Order: -Blood Culture; SPEC'M 09/07/16 11:47 Test: BLOOD CULTURE; Value: No growth after 48 hours . All specimens observed; Status: F Test: BLOOD CULTURE; Value: for 5 days. Results final at that time.; Status: F Test: BLOOD CULTURE; Status: F Test: BLOOD CULTURE; Value: No growth after 24 hours . All specimens observed; Status: F Test: BLOOD CULTURE; Value: for 5 days. Results final at that time.; Status: F Test: BLOOD CULTURE; Value: No Growth after 72 hours. All specimens observed; Status: F Test: BLOOD CULTURE; Value: for 7 days. Results final at that time.; Status: F Lab Order: Lactic Acid (Gomez tube on ice); SPEC'M 09/07/16 12:38 Test: LACTIC ACID SEPSIS PROTOCOL; Value: 1.2; Range: 0.4-2.0; Units: MMOL/L; Status: F Lab Order: BLOOD CULTURES; SPEC'M 09/07/16 12:38 Test: BLOOD CULTURE; Value: No growth after 48 hours . All specimens observed; Status: F Test: BLOOD CULTURE; Value: for 5 days. Results final at that time.; Status: F Test: BLOOD CULTURE; Status: F Test: BLOOD CULTURE; Value: No growth after 24 hours . All specimens observed; Status: F Test: BLOOD CULTURE; Value: for 5 days. Results final at that time.; Status: F Test: BLOOD CULTURE; Value: No Growth after 72 hours. All specimens observed; Status: F Test: BLOOD CULTURE; Value: for 7 days. Results final at that time.; Status: F Radiology Order: Chest, 1 View Test: Chest, 1 View REASON FOR EXAMINATION: Cough; Clinical: Cough .; ; Comparison: 10/17/2013 .; ; Findings:; The mediastinum and cardiac silhouette are stable and within normal limits for; portable technique. The lung navarro are clear without acute consolidation,; effusion, or pneumothorax. Skeletal structures are intact.; ; Impression:; Normal portable chest x-ray; ; ; Signed by; Ethan Leone MD 09/07/2016 12:40 P; Outcome: 13:35 Discharge ordered by Provider. cc10 13:44 Discharge Assessment: Patient awake, alert and oriented x 3. No cognitive and/or kc3 functional deficits noted. Patient verbalized understanding of disposition instructions. patient administered narcotics - no. The following High Risk Discharge criteria are identified: None. Discharged to home via wheelchair, with family. Condition: stable. Discharge instructions given to patient, Instructed on discharge instructions, follow up and referral plans. medication usage, Demonstrated understanding of instructions, medications, Pt was receptive of discharge instructions/ teaching. Prescriptions given X 1. No special radiology studies were completed. Property :Personal belongings accompany Pt. 13:47 Patient left the ED. kc3 Addendum: 09/11/2016 10:06 Narrative: Urine culture results reviewed with Dr. Rodriguez and report to [facility] PCP. Signatures: Dispatcher [employer] EDMS Justina Fang RN RN [facility] Ana Gonzalez, Earnest Reg Shelley Fulton RN RN rs3 Radha Bocanegra RN RN ttb McGrath, Marlynn mm15 Inocente Espinosa, SYSTEMS PROTECTION TECHNICIAN SYSTEMS PROTECTION TECHNICIAN jlf Glenn Montalvo, PA-C PA-C cc10 Bethany Kim RN RN [id number] Juaquin Manuel, SYSTEMS PROTECTION TECHNICIAN SYSTEMS PROTECTION TECHNICIAN jrd Barboza,Anjelica,RN RN kc3 Chart Complete MTDD
--- NOTE | 2016-09-11 10:35 | EDDOCDS ---
Physician Documentation [facility] Name: Patricia Rea Age: 76 yrs Sex: Female : 1940 Arrival Date: 09/07/2016 Time: 11:18 Bed I3 / M3 Private MD: Dean Sheffield P. Disposition: 09/07/16 13:35 Discharged to Home/Self Care. Impression: Nausea and vomiting, Diarrhea, unspecified. - Condition is Stable. - Discharge Instructions: Viral Gastroenteritis. - Prescriptions for ZOFRAN ODT 4 mg - dissolve 1 tablet by ORAL route 4 times per day As needed do not chew, do not swallow whole; 10 tablet. - Medication Reconciliation form. - Follow up: Dean hSeffield; When: 1 - 2 days; Reason: Wound/Symptom Recheck, Recheck today's complaints, Worsening of conditions, Continuance of care. - Problem is chronic. - Symptoms have improved. Historical: - Allergies: SULFA (SULFONAMIDES); Phenobarbital; Latex; - Home Meds: 1. Vitamin D2 50,000 unit oral cap once wkly (Last dose: 09/07/2016) 2. aspirin 81 mg Oral chew 1 tab once daily (Last dose: 09/06/2016 08:00) 3. Crestor 20 mg Oral tab 1 tab nightly (Last dose: 09/06/2016 20:00) 4. hydroxyzine HCl 10 mg Oral tab twice a day (Last dose: 09/06/2016 20:00) 5. Klor-Con 10 10 mEq Oral TbER 1 tab once daily (Last dose: 09/06/2016 08:00) 6. ibandronate 150 mg oral tab 1 tab once moly (Last dose: 08/13/2016) 7. Synthroid 137 mcg Oral tab 1 tab once daily (Last dose: 09/06/2016 08:00) 8. magnesium gluconate 500 mg oral daily (Last dose: 09/06/2016 08:00) 9. Zofran (as hydrochloride) 4 mg Oral tab (Last dose: 09/07/2016 10:00) 10. antibiotic for cellulitis twice a day 11. o2 3L NC PRN - PMHx: cellulitis; Hypercholesterolemia; Hypertension; Hypothyroidism; Kidney stones; Osteoporosis; - PSHx: Laminectomy. lumbar; Hysterectomy; Appendectomy; Stents, Coronary; D & C; - Social history: Smoking status: Patient states was never smoker of tobacco. No barriers to communication noted, The patient speaks fluent Kosovan, Speaks appropriately for age. - Family history: Not pertinent. - : The pt / caregiver states he / she is not on anticoagulants. Home medication list is obtained from the patient. - Exposure Risk Screening:: None identified. Vital Signs: 09/07 11:20 BP 148 / 82 RA Sitting (auto/reg); Pulse 85; Resp 20; Temp 99.6(O); Pulse Ox 100% on 3 jrd lpm NC; Weight 124.28 kg / 273.99 lbs (R); Height 5 ft. 0 in. (152.40 cm) (R); Pain 9/10; 13:29 BP 170 / 71; Pulse 89; Resp 20; Temp 99.5; Pulse Ox 92% ; Pain 8/10; jlf 11:20 Body Mass Index 53.51 (124.28 kg, 152.40 cm) jrd MDM: 11:38 Ondansetron 4 mg IVP once ordered. cc10 11:38 IV Saline Lock ordered. cc10 11:38 Undress patient appropriately for examination ordered. cc10 11:38 -Blood Culture (Adults Only), peripheral from different site, or from device/port/PICC cc10 etc. if present ordered. 11:38 NS 0.9% 1000 ml IV at 250 mL/hr continuous ordered. cc10 11:40 Basic Metabolic Profile Ordered. EDMS 11:40 CBC with Diff Ordered. EDMS 11:40 Lipase Ordered. EDMS 11:40 Liver Profile Ordered. EDMS 11:40 Urinalysis Ordered. EDMS 11:40 Urine Culture Ordered. EDMS 11:40 -Blood Culture Ordered. EDMS 11:40 Lactic Acid (Gomez tube on ice) Ordered. EDMS 11:41 NOTHING BY MOUTH+DIET ordered. EDMS 11:41 Chest, 1 View Ordered. EDMS 11:41 -Blood Culture (Adults Only), peripheral from different site, or from device/port/PICC ar3 etc. if present complete. 11:43 BLOOD CULTURES Ordered. EDMS 12:49 Financial registration complete. mm15 13:15 [facility] Payment Agreement was scanned into Beam[employer] and attached to record. mm15 13:22 Basic Metabolic Profile Reviewed. cc10 13:22 CBC with Diff Reviewed. cc10 13:22 Liver Profile Reviewed. cc10 13:22 Urinalysis Reviewed. cc10 13:22 Lipase Reviewed. cc10 13:22 Lactic Acid (Gomez tube on ice) Reviewed. cc10 13:22 Chest, 1 View Reviewed. cc10 13:24 Vital Signs ordered. cc10 09/08 10:31 T-Sheet-- Draft Copy was scanned into Beamr and attached to record. gb Administered Medications: 09/07 12:13 Drug: NS 0.9% 1000 ml [sodium chloride 0.9 % intravenous solution] Route: IV; Rate: 250 rs3 mL/hr; Site: right hand; 12:14 Drug: Ondansetron 4 mg [ondansetron HCl 2 mg/mL intravenous solution (2 mL)] Route: rs3 IVP; Site: left hand; Signatures: Dispatcher F[employer]Pants EDMS Ana Gonzalez, Reg Reg gb Monica Galvan, ADJUNCT PROFESSOR OF ENGLISH ADJUNCT PROFESSOR OF ENGLISH ar3 Radha Bocanegra, LINDA RN ttJuvencio Robb mm15 Glenn Montalvo, PA-C PA-C cc10 Anjelica Barboza RN RN kc3 Shelley Bruner RN rs3 The chart was reviewed and I authenticate all verbal orders and agree with the evaluation and treatment provided.Attachments: 13:15 [facility] Payment Agreement mm15 09/08 10:31 T-Sheet-- Draft Copy gb Chart Complete MTDD
--- NOTE | 2016-09-11 10:35 | EDDOCDS ---
Nurse's Notes [facility] Name: Patricia Rea Age: 76 yrs Sex: Female : 1940 Arrival Date: 09/07/2016 Time: 11:18 Bed I3 / M3 Private MD: Dean Sheffield P. Diagnosis: Nausea and vomiting;Diarrhea, unspecified Presentation: 09/07 11:23 Presenting complaint: Patient states: n/v/d since this morning and cough x3 days. Abd ttb pain. Adult Sepsis Screening: The patient does not have new or worsening altered mentation. Patient's respiratory rate is less than 22. Systolic blood pressure is greater than 100. Patient has a qSOFA score of 0- Negative Sepsis Screen. Suicide/Homicide risk assessment- the patient denies having any suicidal and/or homicidal ideations and does not present with any other emotional, behavioral or mental health complaints. Status: Patient is not a customer service associate or dependent. Transition of care: patient was not received from another setting of care. 11:23 Acuity: ERIK Level 3 ttb 11:23 Method Of Arrival: Walkin/Carried/Asstd ttb Triage Assessment: 11:27 General: Appears in no apparent distress, obese, well nourished, Behavior is ttb appropriate for age, cooperative, pleasant. Pain: Location: headache, abd pain. Neurological: Level of Consciousness is awake, alert. Cardiovascular: Chest pain is denied. Respiratory: No deficits noted. Airway is patent Respiratory effort is even, unlabored, Denies cough, shortness of breath. Respiratory: Reports shortness of breath at rest on exertion cough that is. GI: Reports diarrhea, lower abdominal pain, upper abdominal pain, nausea, vomiting. Derm: Skin is normal. Injury Description: No known injury. Historical: - Allergies: SULFA (SULFONAMIDES); Phenobarbital; Latex; - Home Meds: 1. Vitamin D2 50,000 unit oral cap once wkly (Last dose: 09/07/2016) 2. aspirin 81 mg Oral chew 1 tab once daily (Last dose: 09/06/2016 08:00) 3. Crestor 20 mg Oral tab 1 tab nightly (Last dose: 09/06/2016 20:00) 4. hydroxyzine HCl 10 mg Oral tab twice a day (Last dose: 09/06/2016 20:00) 5. Klor-Con 10 10 mEq Oral TbER 1 tab once daily (Last dose: 09/06/2016 08:00) 6. ibandronate 150 mg oral tab 1 tab once moly (Last dose: 08/13/2016) 7. Synthroid 137 mcg Oral tab 1 tab once daily (Last dose: 09/06/2016 08:00) 8. magnesium gluconate 500 mg oral daily (Last dose: 09/06/2016 08:00) 9. Zofran (as hydrochloride) 4 mg Oral tab (Last dose: 09/07/2016 10:00) 10. antibiotic for cellulitis twice a day 11. o2 3L NC PRN - PMHx: cellulitis; Hypercholesterolemia; Hypertension; Hypothyroidism; Kidney stones; Osteoporosis; - PSHx: Laminectomy. lumbar; Hysterectomy; Appendectomy; Stents, Coronary; D & C; - Social history: Smoking status: Patient states was never smoker of tobacco. No barriers to communication noted, The patient speaks fluent Pashto, Speaks appropriately for age. - Family history: Not pertinent. - : The pt / caregiver states he / she is not on anticoagulants. Home medication list is obtained from the patient. - Exposure Risk Screening:: None identified. Screenin:16 Screening information is obtained from the patient. Fall risk: No risks identified. rs3 Assistance ADL's: requires no assistance with activities of daily living. Abuse/DV Screen: The patient / caregiver reports he/she is: not in a situation that causes fear, pain or injury. Nutritional screening: No deficits noted. Advance Directives: Currently, there is. home support is adequate. Assessment: 12:15 General: Appears in no apparent distress, Behavior is appropriate for age, cooperative. rs3 Pain: Location: abdomen. Neurological: Level of Consciousness is awake, alert, Oriented to person, place, time. Respiratory: Airway is patent Breath sounds are diminished bilaterally. Reports shortness of breath on exertion. GI: Abdomen is obese, Bowel sounds present X 4 quads. Abd is soft and non tender X 4 quads. Derm: Skin is pink, warm & dry. 13:09 General: Appears in no apparent distress, resting comfortable on stretcher. denies of rs3 pain/distress. family at bedside. nausea improved after the nausea med. waiting on test results. . 13:43 General: Appears in no apparent distress, comfortable, Behavior is appropriate for age, kc3 cooperative. General: Family at bedside. . Respiratory: Respiratory effort is even, unlabored. Derm: Skin is pink, warm & dry. Vital Signs: 11:20 BP 148 / 82 RA Sitting (auto/reg); Pulse 85; Resp 20; Temp 99.6(O); Pulse Ox 100% on 3 jrd lpm NC; Weight 124.28 kg (R); Height 5 ft. 0 in. (152.40 cm) (R); Pain 9/10; 13:29 BP 170 / 71; Pulse 89; Resp 20; Temp 99.5; Pulse Ox 92% ; Pain 8/10; jlf 11:20 Body Mass Index 53.51 (124.28 kg, 152.40 cm) [facility] Vitals: 11:20 Log In Time: September 07, 2016 at 11:03. [facility] ED Course: 11:20 Patient visited by Juaquin Manuel PCA. jrd 11:20 Dean Sheffield is Private Physician. jrd 11:20 Patient moved to Waiting jrd 11:21 Patient visited by Juaquin Manuel PCA. jrd 11:21 Patient moved to Pre RCE jrd 11:24 Triage Initiated ttb 11:25 Glenn Montalvo PA-C is PHCP. cc10 11:25 Alireza Smallwood MD is Attending Physician. cc10 11:32 Patient moved to Triage 1 ms18 11:34 Patient visited by Glenn Montalvo PA-C. cc10 11:34 Patient visited by Glenn Montalvo PA-C. cc10 11:44 Patient moved to I3 / M3 rs3 11:47 Patient visited by Inocente Espinosa PCA. jlf 12:14 -Blood Culture Sent. rs3 12:14 CBC with Diff Sent. rs3 12:18 Patient visited by Inocente Espinosa PCA. jlf 13:04 Chest, 1 View Returned. EDMS 13:09 Patient visited by Shelley Bruner RN. rs3 13:15 [facility] Payment Agreement was scanned into Reclutec and attached to record. mm15 13:35 Dean Sheffield is Referral Physician. cc10 13:44 Inserted saline lock: 22 gauge in right and blood collected. The patient tolerated the kc3 procedure well. wrist, placed by LINDA Vera. No procedures done that require assistance. 13:46 The patient / caregiver is instructed regarding the plan of care and ED course. kc3 13:46 Discontinued IV lock intact, bleeding controlled, pressure dressing applied, No kc3 redness/swelling at site. 09/08 10:31 T-Sheet-- Draft Copy was scanned into Reclutec and attached to record. gb Administered Medications: 09/07 12:13 Drug: NS 0.9% 1000 ml [sodium chloride 0.9 % intravenous solution] Route: IV; Rate: 250 rs3 mL/hr; Site: right hand; 12:14 Drug: Ondansetron 4 mg [ondansetron HCl 2 mg/mL intravenous solution (2 mL)] Route: rs3 IVP; Site: left hand; Order Results: Lab Order: Basic Metabolic Profile; SPEC'M 09/07/16 11:47 Test: GLUCOSE, FASTING; Value: 113; Range: 83-110; Abnormal: Above high normal; Units: MG/DL; Status: F Test: BLOOD UREA NITROGEN; Value: 18; Range: 7-18; Units: MG/DL; Status: F Test: CREATININE FOR GFR; Value: 0.97; Range: 0.55-1.02; Units: MG/DL; Status: F Test: GLOMERULAR FILTRATION RATE; Value: 59.1; Range: >39; Status: F Test: SODIUM LEVEL; Value: 142; Range: 136-145; Units: MEQ/L; Status: F Test: POTASSIUM SERUM; Value: 4.6; Range: 3.5-5.1; Units: MEQ/L; Status: F Test: CHLORIDE LEVEL; Value: 108; Range: 98-107; Abnormal: Above high normal; Units: MEQ/L; Status: F Test: CARBON DIOXIDE LEVEL; Value: 23; Range: 21-32; Units: MEQ/L; Status: F Test: ANION GAP; Value: 11; Range: 8-16; Units: MEQ/L; Status: F Test: CALCIUM LEVEL; Value: 9.1; Range: 8.8-10.2; Units: MG/DL; Status: F Test Note: ; Units are mL/min/1.73 m2 Chronic Kidney Disease Staging per NKF: Stage I & II GFR >=60 Normal to Mildly Decreased Stage III GFR 30-59 Moderately Decreased Stage IV GFR 15-29 Severely Decreased Stage V GFR <15 Very Little GFR Left ESRD GFR <15 on RECREATIONAL ASSISTANT Lab Order: CBC with Diff; JENNIFER'Yenny 09/07/16 11:47 Test: WHITE BLOOD COUNT; Value: 9.2; Range: 4.0-10.0; Units: K/mm3; Status: F Test: RED BLOOD COUNT; Value: 4.93; Range: 4.00-5.40; Units: M/mm3; Status: F Test: HEMOGLOBIN; Value: 13.7; Range: 12.0-16.0; Units: g/dl; Status: F Test: HEMATOCRIT; Value: 43.2; Range: 36.0-47.0; Units: %; Status: F Test: MEAN CORPUSCULAR VOLUME; Value: 87.7; Range: 80.0-96.0; Units: fl; Status: F Test: MEAN CORPUSCULAR HEMOGLOBIN; Value: 27.8; Range: 27.0-33.0; Units: pg; Status: F Test: MEAN CORPUSCULAR HGB CONC; Value: 31.7; Range: 32.0-36.5; Abnormal: Below low normal; Units: g/dl; Status: F Test: RED CELL DISTRIBUTION WIDTH; Value: 14.2; Range: 11.5-14.5; Units: %; Status: F Test: PLATELET COUNT, AUTOMATED; Value: 277; Range: 150-450; Units: k/mm3; Status: F Test: NEUTROPHILS %; Value: 83.8; Range: 36.0-66.0; Abnormal: Above high normal; Units: %; Status: F Test: LYMPH %; Value: 6.9; Range: 24.0-44.0; Abnormal: Below low normal; Units: %; Status: F Test: MONO %; Value: 6.2; Range: 0.0-5.0; Abnormal: Above high normal; Units: %; Status: F Test: EOS %; Value: 1.5; Range: 0.0-3.0; Units: %; Status: F Test: BASO %; Value: 0.5; Range: 0.0-1.0; Units: %; Status: F Test: LARGE UNSTAINED CELL %; Value: 1.2; Range: 0.0-4.0; Units: %; Status: F Test: NEUTROPHILS #; Value: 7.7; Range: 1.8-7.7; Units: K/mm3; Status: F Test: LYMPH #; Value: 0.7; Range: 1.5-4.5; Abnormal: Below low normal; Units: K/mm3; Status: F Test: MONO #; Value: 0.6; Range: 0.0-0.8; Units: K/mm3; Status: F Test: EOS #; Value: 0.1; Range: 0.0-0.50; Units: K/mm3; Status: F Test: BASO #; Value: 0.0; Range: 0.0-0.2; Units: K/mm3; Status: F Test: LARGE UNSTAINED CELL #; Value: 0.1; Range: 0.0-0.4; Units: K/mm3; Status: F Lab Order: Lipase; SPEC' 09/07/16 11:47 Test: LIPASE; Value: 338; Range: 73-393; Units: U/L; Status: F Lab Order: Liver Profile; SPEC' 09/07/16 11:47 Test: AST/SGOT; Value: 23; Range: 15-37; Units: U/L; Status: F Test: ALT/SGPT; Value: 20; Range: 12-78; Units: U/L; Status: F Test: ALKALINE PHOSPHATASE; Value: 95; Range: 45-117; Units: U/L; Status: F Test: BILIRUBIN,TOTAL; Value: 0.2; Range: 0.2-1.0; Units: MG/DL; Status: F Test: BILIRUBIN,DIRECT; Value: < 0.1; Range: 0.0-0.2; Units: MG/DL; Status: F Test: TOTAL PROTEIN; Value: 7.3; Range: 6.4-8.2; Units: GM/DL; Status: F Test: ALBUMIN; Value: 3.2; Range: 3.2-5.2; Units: GM/DL; Status: F Test: ALBUMIN/GLOBULIN RATIO; Value: 0.78; Range: 1.00-1.93; Abnormal: Below low normal; Status: F Lab Order: Urinalysis; SPEC'M 09/07/16 11:47 Test: APPEARANCE, URINE; Value: HAZY; Range: CLEAR; Status: F Test: COLOR, URINE; Value: YELLOW; Range: YELLOW; Status: F Test: PH,URINE; Value: 6.0; Range: 5.0-9.0; Units: UNITS; Status: F Test: SPECIFIC GRAVITY URINE AUTO; Value: 1.014; Range: 1.002-1.035; Status: F Test: PROTEIN, URINE AUTO; Value: 1+; Range: NEGATIVE; Abnormal: Above high normal; Units: mg/dL; Status: F Test: GLUCOSE, URINE (UA) AUTO; Value: NEGATIVE; Range: NEGATIVE; Units: mg/dL; Status: F Test: KETONE, URINE AUTO; Value: NEGATIVE; Range: NEGATIVE; Units: mg/dL; Status: F Test: UROBILINOGEN, URINE AUTO; Value: 0.2; Range: 0.0-2.0; Units: mg/dL; Status: F Test: BILIRUBIN, URINE AUTO; Value: NEGATIVE; Range: NEGATIVE; Status: F Test: NITRITE, URINE AUTO; Value: NEGATIVE; Range: NEGATIVE; Status: F Test: LEUKOCYTE ESTERASE, URINE AUTO; Value: NEGATIVE; Range: NEGATIVE; Status: F Test: BLOOD, URINE BLOOD; Value: 2+; Range: NEGATIVE; Abnormal: Above high normal; Status: F Test: WBC, URINE AUTO; Value: 13; Range: 0-3; Abnormal: Above high normal; Units: /HPF; Status: F Test: RBC, URINE AUTO; Value: 173; Range: 0-3; Abnormal: Above high normal; Units: /HPF; Status: F Test: BACTERIA, URINE AUTO; Value: NEGATIVE; Range: NEGATIVE; Status: F Test: SQUAMOUS EPITHELIAL CELL UR AU; Value: 0; Range: 0-6; Units: /HPF; Status: F Test: MUCUS, URINE; Value: SMALL; Range: NEGATIVE; Status: F Test: HYALINE CAST, URINE AUTO; Value: 0; Range: 0-1; Units: /LPF; Status: F Lab Order: Urine Culture; SPEC'M 09/07/16 11:48 Test: URINE CULTURE; Value: <EXTERNAL COMMENT eCWMed> FULL REPORT IN LAB NOTES (eCW and Medent).; Status: F Test: URINE CULTURE; Value: ORGANISM 1: PSEUDOMONAS AERUGINOSA; Status: F Test: URINE CULTURE; Value: PSEUDOMONAS AERUGINOSA; Status: F Test: URINE CULTURE; Value: COLONY COUNT CFU/ml 30,000; Status: F Test: URINE CULTURE; Value: GRAM NEG SENSI - VITEK 80; Status: F Test: URINE CULTURE; Value: Method: VIT2; Status: F Test: URINE CULTURE; Value: GENTAMICIN <=1 S; Status: F Test: URINE CULTURE; Value: NITROFURANTOIN >=512 R; Status: F Test: URINE CULTURE; Value: LEVOFLOXACIN 0.25 S; Status: F Test: URINE CULTURE; Value: TOBRAMYCIN <=1 S; Status: F Test: URINE CULTURE; Value: CEFTAZIDIME <=1 S; Status: F Test: URINE CULTURE; Value: PIPERACILLIN/TAZOBACTAM <=4 S; Status: F Test: URINE CULTURE; Value: MEROPENEM <=0.25 S; Status: F Test: URINE CULTURE; Value: CEFEPIME <=1 S; Status: F Lab Order: -Blood Culture; SPEC'M 09/07/16 11:47 Test: BLOOD CULTURE; Value: No growth after 48 hours . All specimens observed; Status: F Test: BLOOD CULTURE; Value: for 5 days. Results final at that time.; Status: F Test: BLOOD CULTURE; Status: F Test: BLOOD CULTURE; Value: No growth after 24 hours . All specimens observed; Status: F Test: BLOOD CULTURE; Value: for 5 days. Results final at that time.; Status: F Test: BLOOD CULTURE; Value: No Growth after 72 hours. All specimens observed; Status: F Test: BLOOD CULTURE; Value: for 7 days. Results final at that time.; Status: F Lab Order: Lactic Acid (Gomez tube on ice); SPEC'M 09/07/16 12:38 Test: LACTIC ACID SEPSIS PROTOCOL; Value: 1.2; Range: 0.4-2.0; Units: MMOL/L; Status: F Lab Order: BLOOD CULTURES; SPEC'M 09/07/16 12:38 Test: BLOOD CULTURE; Value: No growth after 48 hours . All specimens observed; Status: F Test: BLOOD CULTURE; Value: for 5 days. Results final at that time.; Status: F Test: BLOOD CULTURE; Status: F Test: BLOOD CULTURE; Value: No growth after 24 hours . All specimens observed; Status: F Test: BLOOD CULTURE; Value: for 5 days. Results final at that time.; Status: F Test: BLOOD CULTURE; Value: No Growth after 72 hours. All specimens observed; Status: F Test: BLOOD CULTURE; Value: for 7 days. Results final at that time.; Status: F Radiology Order: Chest, 1 View Test: Chest, 1 View REASON FOR EXAMINATION: Cough; Clinical: Cough .; ; Comparison: 10/17/2013 .; ; Findings:; The mediastinum and cardiac silhouette are stable and within normal limits for; portable technique. The lung navarro are clear without acute consolidation,; effusion, or pneumothorax. Skeletal structures are intact.; ; Impression:; Normal portable chest x-ray; ; ; Signed by; Ethan Leone MD 09/07/2016 12:40 P; Outcome: 13:35 Discharge ordered by Provider. cc10 13:44 Discharge Assessment: Patient awake, alert and oriented x 3. No cognitive and/or kc3 functional deficits noted. Patient verbalized understanding of disposition instructions. patient administered narcotics - no. The following High Risk Discharge criteria are identified: None. Discharged to home via wheelchair, with family. Condition: stable. Discharge instructions given to patient, Instructed on discharge instructions, follow up and referral plans. medication usage, Demonstrated understanding of instructions, medications, Pt was receptive of discharge instructions/ teaching. Prescriptions given X 1. No special radiology studies were completed. Property :Personal belongings accompany Pt. 13:47 Patient left the ED. kc3 Addendum: 09/11/2016 10:06 Narrative: Urine culture results reviewed with Dr. Rodriguez and report to be faxed to [facility] PCP. Signatures: Dispatcher [employer] EDMS Justina Fang RN RN [facility] Ana Gonzalez, Earnest Reg Shelley Fulton RN RN rs3 Radha Bocanegra RN RN ttb McGrath, Marlynn mm15 Inocente Espinosa, FILEMAKER DEVELOPER FILEMAKER DEVELOPER jlf Glenn Montalvo, PA-C PA-C cc10 Bethany Kim RN RN [id number] Juaquin Manuel, FILEMAKER DEVELOPER FILEMAKER DEVELOPER jrd Barboza,Anjelica,RN RN kc3 Chart Complete MTDD
--- NOTE | 2016-09-11 10:35 | EDDOCDS ---
Physician Documentation [facility] Name: Patricia Rea Age: 76 yrs Sex: Female : 1940 Arrival Date: 09/07/2016 Time: 11:18 Bed I3 / M3 Private MD: Dean Sheffield P. Disposition: 09/07/16 13:35 Discharged to Home/Self Care. Impression: Nausea and vomiting, Diarrhea, unspecified. - Condition is Stable. - Discharge Instructions: Viral Gastroenteritis. - Prescriptions for ZOFRAN ODT 4 mg - dissolve 1 tablet by ORAL route 4 times per day As needed do not chew, do not swallow whole; 10 tablet. - Medication Reconciliation form. - Follow up: Dean Sheffield; When: 1 - 2 days; Reason: Wound/Symptom Recheck, Recheck today's complaints, Worsening of conditions, Continuance of care. - Problem is chronic. - Symptoms have improved. Historical: - Allergies: SULFA (SULFONAMIDES); Phenobarbital; Latex; - Home Meds: 1. Vitamin D2 50,000 unit oral cap once wkly (Last dose: 09/07/2016) 2. aspirin 81 mg Oral chew 1 tab once daily (Last dose: 09/06/2016 08:00) 3. Crestor 20 mg Oral tab 1 tab nightly (Last dose: 09/06/2016 20:00) 4. hydroxyzine HCl 10 mg Oral tab twice a day (Last dose: 09/06/2016 20:00) 5. Klor-Con 10 10 mEq Oral TbER 1 tab once daily (Last dose: 09/06/2016 08:00) 6. ibandronate 150 mg oral tab 1 tab once moly (Last dose: 08/13/2016) 7. Synthroid 137 mcg Oral tab 1 tab once daily (Last dose: 09/06/2016 08:00) 8. magnesium gluconate 500 mg oral daily (Last dose: 09/06/2016 08:00) 9. Zofran (as hydrochloride) 4 mg Oral tab (Last dose: 09/07/2016 10:00) 10. antibiotic for cellulitis twice a day 11. o2 3L NC PRN - PMHx: cellulitis; Hypercholesterolemia; Hypertension; Hypothyroidism; Kidney stones; Osteoporosis; - PSHx: Laminectomy. lumbar; Hysterectomy; Appendectomy; Stents, Coronary; D & C; - Social history: Smoking status: Patient states was never smoker of tobacco. No barriers to communication noted, The patient speaks fluent Dutch, Speaks appropriately for age. - Family history: Not pertinent. - : The pt / caregiver states he / she is not on anticoagulants. Home medication list is obtained from the patient. - Exposure Risk Screening:: None identified. Vital Signs: 09/07 11:20 BP 148 / 82 RA Sitting (auto/reg); Pulse 85; Resp 20; Temp 99.6(O); Pulse Ox 100% on 3 jrd lpm NC; Weight 124.28 kg / 273.99 lbs (R); Height 5 ft. 0 in. (152.40 cm) (R); Pain 9/10; 13:29 BP 170 / 71; Pulse 89; Resp 20; Temp 99.5; Pulse Ox 92% ; Pain 8/10; jlf 11:20 Body Mass Index 53.51 (124.28 kg, 152.40 cm) jrd MDM: 11:38 Ondansetron 4 mg IVP once ordered. cc10 11:38 IV Saline Lock ordered. cc10 11:38 Undress patient appropriately for examination ordered. cc10 11:38 -Blood Culture (Adults Only), peripheral from different site, or from device/port/PICC cc10 etc. if present ordered. 11:38 NS 0.9% 1000 ml IV at 250 mL/hr continuous ordered. cc10 11:40 Basic Metabolic Profile Ordered. EDMS 11:40 CBC with Diff Ordered. EDMS 11:40 Lipase Ordered. EDMS 11:40 Liver Profile Ordered. EDMS 11:40 Urinalysis Ordered. EDMS 11:40 Urine Culture Ordered. EDMS 11:40 -Blood Culture Ordered. EDMS 11:40 Lactic Acid (Gomez tube on ice) Ordered. EDMS 11:41 NOTHING BY MOUTH+DIET ordered. EDMS 11:41 Chest, 1 View Ordered. EDMS 11:41 -Blood Culture (Adults Only), peripheral from different site, or from device/port/PICC ar3 etc. if present complete. 11:43 BLOOD CULTURES Ordered. EDMS 12:49 Financial registration complete. mm15 13:15 [facility] Payment Agreement was scanned into [employer] and attached to record. mm15 13:22 Basic Metabolic Profile Reviewed. cc10 13:22 CBC with Diff Reviewed. cc10 13:22 Liver Profile Reviewed. cc10 13:22 Urinalysis Reviewed. cc10 13:22 Lipase Reviewed. cc10 13:22 Lactic Acid (Gomez tube on ice) Reviewed. cc10 13:22 Chest, 1 View Reviewed. cc10 13:24 Vital Signs ordered. cc10 09/08 10:31 T-Sheet-- Draft Copy was scanned into [employer] and attached to record. gb Administered Medications: 09/07 12:13 Drug: NS 0.9% 1000 ml [sodium chloride 0.9 % intravenous solution] Route: IV; Rate: 250 rs3 mL/hr; Site: right hand; 12:14 Drug: Ondansetron 4 mg [ondansetron HCl 2 mg/mL intravenous solution (2 mL)] Route: rs3 IVP; Site: left hand; Signatures: Dispatcher Ubalo EDMS Ana Gonzalez, Reg Reg gb Monica Galvan, ASSISTANT PROFESSOR OF ART ASSISTANT PROFESSOR OF ART ar3 Radha Bocanegra, LINDA RN ttJuvencio Robb mm15 Glenn Montalvo, PA-C PA-C cc10 Anjelica Barboza RN RN kc3 Shelley Bruner RN rs3 The chart was reviewed and I authenticate all verbal orders and agree with the evaluation and treatment provided.Attachments: 13:15 [facility] Payment Agreement mm15 09/08 10:31 T-Sheet-- Draft Copy gb Chart Complete MTDD
== END 2016-09-07 13:47 | disposition home or self-care (01) ==
LOC: M ED 11:18
DX: R11.2 Nausea with vomiting, unspecified (principal); R19.7 Diarrhea, unspecified; L03.116 Cellulitis of left lower limb; I10 Essential (primary) hypertension; E78.00 Pure hypercholesterolemia, unspecified; E03.9 Hypothyroidism, unspecified; M81.0 Age-related osteoporosis without current pathological fracture; Z95.5 Presence of coronary angioplasty implant and graft; Z87.442 Personal history of urinary calculi; Z79.899 Other long term (current) drug therapy; Z79.82 Long term (current) use of aspirin; Z79.2 Long term (current) use of antibiotics; Z99.81 Dependence on supplemental oxygen; Z88.2 Allergy status to sulfonamides; Z88.8 Allergy status to other drugs, medicaments and biological substances; Z91.040 Latex allergy status
CPT/HCPCS: 36415; 71010; 80048; 80076; 81001; 83605; 83690; 85025; 87040; 87088; 87186; 96374; 99284; J2405

== ENCOUNTER 2016-10-28 13:24 | Emergency (ER) | payer MEDICARE, MEDICAID ==
[~2016-10-28] VITALS: Ht 152.4 cm; Wt 124.3 kg
[2016-10-28] MEDS ORDERED: CRES40TA PO (13:36)
[2016-10-28] MEDS ORDERED: AMOX/K (13:36)
[2016-10-28] MEDS ORDERED: POTA1TAB23 PO (13:36)
[2016-10-28] MEDS ORDERED: ONDANSETRON 4 MG ORAL DISINTEGRATING TAB (S0181) PO ONE (15:00)
[2016-10-28 15:27] LABS: BASO % 0.2 % (0.0-1.0); EOS # 0.1 K/mm3 (0.0-0.50); EOS % 0.7 % (0.0-3.0); LARGE UNSTAINED CELL # 0.3 K/mm3 (0.0-0.4); LARGE UNSTAINED CELL % 1.7 % (0.0-4.0); LYMPH % 4.5 % (24.0-44.0); MEAN CORPUSCULAR HEMOGLOBIN 27.4 pg (27.0-33.0); MEAN CORPUSCULAR HGB CONC 31.7 g/dl (32.0-36.5); MEAN CORPUSCULAR VOLUME 86.6 fl (80.0-96.0); MONO # 0.8 K/mm3 (0.0-0.8); MONO % 5.2 % (0.0-5.0); NEUTROPHILS # 13.8 K/mm3 (1.8-7.7); NEUTROPHILS % 87.7 % (36.0-66.0); PLATELET COUNT, AUTOMATED 292 k/mm3 (150-450); RED CELL DISTRIBUTION WIDTH 14.7 % (11.5-14.5); WHITE BLOOD COUNT 15.7 K/mm3 (4.0-10.0)
[2016-10-28 15:43] LABS: CALCIUM LEVEL 9.1 MG/DL (8.8-10.2); CREATININE FOR GFR 2.61 MG/DL (0.55-1.02); GLOMERULAR FILTRATION RATE 18.9 (>39); POTASSIUM SERUM 4.6 MEQ/L (3.5-5.1)
[2016-10-28 16:12] LABS: ERYTHROCYTE SEDIMENTATION RATE 53 mm/hr (0-30)
[2016-10-28] MEDS ORDERED: CLEO300C2 PO (16:25)
[2016-10-28] MEDS ORDERED: ZOFR4TAB3 PO (16:25)
--- NOTE | 2016-10-28 16:25 | REP ---
Duplex extremity venous ultrasound: Bilateral lower extremity: History: Redness and swelling. Findings: The deep veins are anechoic and fully compressible from the groin to the popliteal fossa in the left and right lower extremity. Color flow imaging is homogeneous. Spectral Doppler interrogation demonstrates intact respiratory variation in flow and normal manual augmentation of flow. There is no evidence of deep vein thrombosis. Impression: Negative bilateral lower extremity duplex venous ultrasound. No evidence of deep vein thrombosis. Signed by Manuel Cardenas MD 10/28/2016 04:32 P
[2016-10-28 16:49] VITALS: BP 129/58
== END 2016-10-28 15:12 | disposition home or self-care (01) ==
LOC: M ED 15:12
DX: L03.115 Cellulitis of right lower limb (principal); L03.116 Cellulitis of left lower limb; R11.2 Nausea with vomiting, unspecified; I10 Essential (primary) hypertension; I25.2 Old myocardial infarction; E78.00 Pure hypercholesterolemia, unspecified; E03.9 Hypothyroidism, unspecified; E66.9 Obesity, unspecified; Z95.5 Presence of coronary angioplasty implant and graft; Z79.899 Other long term (current) drug therapy; Z79.82 Long term (current) use of aspirin; Z88.2 Allergy status to sulfonamides; Z88.8 Allergy status to other drugs, medicaments and biological substances; Z91.040 Latex allergy status; Z91.048 Other nonmedicinal substance allergy status; Z87.891 Personal history of nicotine dependence; Z85.6 Personal history of leukemia; Z86.73 Personal history of transient ischemic attack (TIA), and cerebral infarction without residual deficits; Z87.442 Personal history of urinary calculi

== ENCOUNTER 2016-11-02 17:10 | Inpatient (IN) | payer MEDICARE, MEDICAID ==
[~2016-11-02] VITALS: Ht 152.4 cm; Wt 122.0 kg
[~2016-11-02 17:10] MED LIST changes: +AMOX/K; +CLEO300C2 PO; +CRES40TA PO; +POTA1TAB23 PO; +ZOFR4TAB3 PO
[2016-11-02] MEDS ORDERED: NS 1,000 ML IV ONE (17:30)
[2016-11-02] MEDS ORDERED: MAGN500T PO (17:49)
[2016-11-02] MEDS ORDERED: LEVO137T2 (17:49)
[2016-11-02] MEDS ORDERED: AMOX/K (17:49)
[2016-11-02 18:40] LABS: BASO # 0.1 K/mm3 (0.0-0.2); BASO % 0.5 % (0.0-1.0); EOS # 0.2 K/mm3 (0.0-0.50); EOS % 1.7 % (0.0-3.0); LARGE UNSTAINED CELL # 0.8 K/mm3 (0.0-0.4); LARGE UNSTAINED CELL % 6.2 % (0.0-4.0); LYMPH # 1.3 K/mm3 (1.5-4.5); LYMPH % 10.4 % (24.0-44.0); MEAN CORPUSCULAR HEMOGLOBIN 28.2 pg (27.0-33.0); MEAN CORPUSCULAR VOLUME 85.6 fl (80.0-96.0); MONO # 0.6 K/mm3 (0.0-0.8); MONO % 4.5 % (0.0-5.0); NEUTROPHILS # 9.8 K/mm3 (1.8-7.7); NEUTROPHILS % 76.7 % (36.0-66.0); PLATELET COUNT, AUTOMATED 200 k/mm3 (150-450); RED CELL DISTRIBUTION WIDTH 15.3 % (11.5-14.5); WHITE BLOOD COUNT 12.8 K/mm3 (4.0-10.0)
[2016-11-02] MEDS ORDERED: ONDANSETRON 4MG/2ML VIAL (J2405) IV ONE (19:00)
[2016-11-02] MEDS ORDERED: NORCO, ANEXSIA 5/325MG TABLET (HYDROcodone/ACETAMINOPHEN) PO ONE (19:00)
[2016-11-02] MEDS ORDERED: MECLIZINE 25 MG TABLET PO ONE (19:00)
[2016-11-02 19:53] LABS: INR 1.13
[2016-11-02] MEDS ORDERED: VANCOMYCIN HCL 1,000 MG, VIAL MATE ADAPTER 1 EACH in D5W 250 ML IV ONE (20:00)
[2016-11-02 20:12] LABS: ALBUMIN 1.8 GM/DL (3.2-5.2); ALBUMIN/GLOBULIN RATIO 0.45 (1.00-1.93); ALKALINE PHOSPHATASE 264 U/L (45-117); ALT/SGPT 13 U/L (12-78); ANION GAP 6 MEQ/L (8-16); AST/SGOT 25 U/L (15-37); BILIRUBIN,DIRECT 0.2 MG/DL (0.0-0.2); BILIRUBIN,TOTAL 0.5 MG/DL (0.2-1.0); BLOOD UREA NITROGEN 23 MG/DL (7-18); CALCIUM LEVEL 9.8 MG/DL (8.8-10.2); CARBON DIOXIDE LEVEL 29 MEQ/L (21-32); CHLORIDE LEVEL 107 MEQ/L (98-107); CREATININE FOR GFR 1.37 MG/DL (0.55-1.02); GLOMERULAR FILTRATION RATE 39.7 (>39); GLUCOSE, FASTING 102 MG/DL (83-110); POTASSIUM SERUM 3.7 MEQ/L (3.5-5.1); SODIUM LEVEL 142 MEQ/L (136-145); TOTAL PROTEIN 5.8 GM/DL (6.4-8.2)
--- NOTE | 2016-11-02 21:10 | REPUSA ---
CT of the head Clinical history: Headache. Technique: Multiple axial CT images were obtained through the head without administration of contrast . Findings: The ventricles and sulci are symmetric bilaterally. There is no evidence of acute hemorrhag e or infarct. There is no midline shift, mass effect, or extra-axial fluid collection. The osseous st ructures are unremarkable. The visualized paranasal sinuses and mastoid air cells are clear. Impression: Negative study.
[2016-11-02] MEDS ORDERED: ACETAMINOPHEN TAB 650MG DOSE (2X325MG) PO PRN (21:45)
[2016-11-02] MEDS ORDERED: CEFEPIME HCL 2 GM in D5W MINI-BAG PLUS 50 ML IV SCH (21:45)
[2016-11-02] MEDS ORDERED: ONDANSETRON 4MG/2ML VIAL (J2405) IV PRN (21:45)
[2016-11-02] MEDS ORDERED: AUGM875T27 PO (22:04)
[2016-11-02] MEDS ORDERED: ASPI1TAB PO (22:04)
[2016-11-02] MEDS ORDERED: SYNT150T PO (22:04)
[2016-11-02] MEDS ORDERED: BACITAB3 PO (22:04)
[2016-11-02] MEDS ORDERED: VITA50003 PO (22:04)
[2016-11-02] MEDS ORDERED: ZINC60OI TOP (22:04)
[2016-11-02] MEDS ORDERED: ONDA4TAB6 PO (22:04)
[2016-11-02] MEDS ORDERED: HYDR10T PO (22:05)
[2016-11-02] MEDS ORDERED: MORPHINE 2 MG/ML 1ML SYRINGE IV ONE (22:15)
--- NOTE | 2016-11-02 22:42 | HPEPDOC ---
General Date of Admission 11/02/16 Primary Care Physician: MUNIR WHITE MD Attending Physician: MCKENNA CLARK MD Chief Complaint The patient is a 76-year-old female admitted with a reason for visit of Weakness. Source: Patient Exam Limitations: No limitations History of Present Illness 76-year-old female with past medical history of hypertension, hypothyroidism, bilateral venous stasis and chronic lymphedema with leg ulcerations, history of MRSA, recurrent cellulitis, and dyslipidemia presented to the ER with a chief complaint of worsening cellulitis of the lower extremities bilaterally. The patient states that she was seen in the ER on 10/28/16 for the same and she was discharged home on doxycycline. Since that time, the patient notes that the swelling and redness in her lower extremities have not gotten any better. She returns to the ER today for further evaluation and management. During this time , the patient denies any episodes of fevers, chills, shortness of breath, chest pain, palpitations, abdominal pain, or any nausea/vomiting. Home Medications Scheduled (Leg Cramp Relief) 1 Tab Tab 1 TAB PO QHS (Reported) Amoxicillin/Clavulanate Potas (Augmentin 875-125 mg) 1 Tab Tab 875 MG PO BID ( Reported) Aspirin (Aspirin 81) 81 Mg Tab 81 MG PO DAILY (Reported) Ergocalciferol (Vitamin D) 50,000 Unit Cap 50,000 UNIT PO Q2WK (Reported) EVERY OTHER THURSDAY Ibandronate Sodium (Ibandronate Sodium) 150 Mg Tab 150 MG PO QMONTH (Reported) 1ST OF THE MONTH Lactobacillus Acidophilus (Bacid) 1 Tab Tab 1 TAB PO DAILY (Reported) Levothyroxine Sodium (Synthroid) 150 Mcg Tab 150 MCG PO DAILY (Reported) Magnesium Gluconate (Magnesium Gluconate) 500 Mg Tab 500 MG PO BID (Reported) Potassium Chloride (Potassium Chloride ER) 10 Meq Tab 10 MEQ PO DAILY (Reported ) Rosuvastatin Calcium (Crestor) 40 Mg Tab 40 MG PO DAILY (Reported) Scheduled PRN Hydroxyzine HCl (Hydroxyzine HCl) 10 Mg Tab 10 MG PO QID PRN PRN ITCHING ( Reported) Ondansetron (Ondansetron Odt) 4 Mg Tab 4 MG PO TID PRN PRN NAUSEA (Reported) Oxycodone/Acetaminophen (Percocet 5-325 mg) 1 Tab Tab 1 TAB PO Q12HP PRN PRN PAIN (Reported) Zinc Oxide (Zinc Oxide 20% Oint) 1 Dose/60 Gm Oint 1 DOSE TOP TID PRN PRN REDNESS/IRRITATION (Reported) APPLIES TO LEGS Allergies Coded Allergies: Phenobarbital (Verified Allergy, Intermediate, HIVES, 10/14/12) Sulfa Drugs (Verified Allergy, Intermediate, HIVES, 03/06/13) Latex (Verified Allergy, Unknown, 10/14/12) Pineapple (Verified Allergy, Unknown, 10/14/12) TAPE (Verified Allergy, Unknown, 12/25/04) Clindamycin (Unverified Adverse Reaction, Intermediate, VOMITING, 11/02/16) Past Medical History Medical History As noted in HPI. Surgical History Laminectomy in the lumbar area, hysterectomy, appendectomy, dilatation and curettage, 2 right knee surgeries Social History * Smoker: former Smoker Alcohol: occationally Drugs: denies Review of Symptoms Other systems 10 point review of systems negative unless otherwise specified in HPI. Physical Examination General Exam: Positive: Alert, Cooperative, No Acute Distress ENT Exam: Positive: Atraumatic, Mucous membr. moist/pink Neck Exam: Negative: JVD Chest Exam: Positive: Clear to auscultation, Normal air movement Heart Exam: Positive: Normal S1, Normal S2, Rate Normal Abdomen Exam: Positive: Soft, Negative: Tenderness Extremity Exam: Positive: Other (changes consistent with chronic venous stasis noted in the lower joints bilaterally, the patient does have an area of erythema and mild tenderness to palpation in the lower joints bilaterally on the dorsal aspect extending from 6 inches below the knee And down. There is an open ulcer on the left lower extremity measuring 2 x 2.5 cm, with no active drainage noted.) Psych Exam: Positive: Oriented x 3 Vital Signs Vital Signs Date Time Temp Pulse Resp B/P Pulse Ox O2 Delivery O2 Flow Rate FiO2 11/02/16 20:14 97.8 103 22 118/52 96 Nasal Cannula 3 Laboratory Data Labs 24H Laboratory Tests 2 11/02/16 18:29: White Blood Count 12.8H, Red Blood Count 4.53, Hemoglobin 12.8, Hematocrit 38.8 , Mean Corpuscular Volume 85.6, Mean Corpuscular Hemoglobin 28.2, Mean Corpuscular Hemoglobin Concent 33.0, Red Cell Distribution Width 15.3H, Platelet Count 200, Neutrophils (%) (Auto) 76.7H, Lymphocytes (%) (Auto) 10.4L, Monocytes (%) (Auto) 4.5, Eosinophils (%) (Auto) 1.7, Basophils (%) (Auto) 0.5, Neutrophils # (Auto) 9.8H, Lymphocytes # (Auto) 1.3L, Monocytes # (Auto) 0.6, Eosinophils # (Auto) 0.2, Basophils # (Auto) 0.1, Large Unclassified Cells # 0.8H, Large Unclassified Cells % 6.2H 11/02/16 19:38: Lactic Acid Level 0.9 11/02/16 19:39: Activated Partial Thromboplast Time 30.3, Aspartate Amino Transf (AST/SGOT) 25, Alanine Aminotransferase (ALT/SGPT) 13, Alkaline Phosphatase 264H, Total Bilirubin 0.5, Direct Bilirubin 0.2, Albumin 1.8L, Albumin/Globulin Ratio 0.45L , Anion Gap 6L, C-Reactive Protein, Quantitative 8.50H, Calcium Level 9.8, Creatine Kinase MB 1.0, Creatine Kinase MB Relative Index 0.00, Erythrocyte Sedimentation Rate 73H, Glomerular Filtration Rate 39.7, Lipase 206, Prothromb Time International Ratio 1.13, Prothrombin Time 14.6H, Total Creatine Kinase < 7L, Total Protein 5.8L, Troponin I < 0.02 CBC/BMP Laboratory Tests 11/02/16 18:29 Red Blood Count 4.53, Mean Corpuscular Volume 85.6, Mean Corpuscular Hemoglobin 28.2, Mean Corpuscular Hemoglobin Concent 33.0, Red Cell Distribution Width 15.3 H, Neutrophils (%) (Auto) 76.7 H, Lymphocytes (%) (Auto) 10.4 L, Monocytes (%) (Auto) 4.5, Eosinophils (%) (Auto) 1.7, Basophils (%) (Auto) 0.5, Neutrophils # (Auto) 9.8 H, Lymphocytes # (Auto) 1.3 L, Monocytes # (Auto) 0.6, Eosinophils # (Auto) 0.2, Basophils # (Auto) 0.1 11/02/16 19:39 Microbiology Microbiology 11/02/16 Blood Culture, Received Pending 11/02/16 Blood Culture, Received Pending 11/02/16 Gram Stain, Received Pending 11/02/16 Wound Culture, Received Pending Plan / VTE VTE Prophylaxis Ordered?: Yes Plan Plan Bilateral Lower extremity cellulitis status post outpatient antibiotic failure We will admit the patient to med/surgery unit Blood cultures, wound cultures ordered We will empirically start the patient on Ceftaroline, Zosyn The patient's white blood cell count is she trending downward, and her lactic acid is within normal limits We will trend the patient's ESR, CRP markers Ultrasound of the lower extremities ordered to rule out DVT We will continue to monitor the patient's progress Chronic kidney disease Patient's serum creatinine appears to be at baseline Dyslipidemia Continue statin Hypothyroidism Continue levothyroxine Diarrhea Patient states that this started after she was given doxycycline 4 days ago, but does state that this is starting to resolve We will order a GI panel to rule out C. difficile Chronic bilateral lower extremity venous stasis, with chronic lymphedema Likely the causative event leading to recurrent cellulitis Morbid obesity Complicating medical care DVT prophylaxis-heparin subcutaneous The patient will be admitted under the service of Dr. Clark, who will begin to follow the patient on 11/03/16. ЕКАТЕРИНА GARCIA MD Nov 02, 2016 22:42
[2016-11-02] MEDS ORDERED: hydrOXYzine 10 MG TAB PO PRN (22:45)
[2016-11-02] MEDS ORDERED: ZINC OXIDE TOP PRN (22:45)
--- NOTE | 2016-11-03 00:20 | REPUSA ---
Clinical history: Pain, swelling. Findings: The common femoral, superficial femoral, popliteal, and other deep venous structures compre ss normally and demonstrate normal color Doppler flow. Normal venous waveforms with augmentation are seen. Impression: No evidence of deep vein thrombosis in either femoral popliteal venous system.
[2016-11-03] MEDS: CEFTAROLINE FOSAMIL 600 MG in D5W MINI-BAG PLUS 50 ML IV SCH ×3 (00:30→22:01)
[2016-11-03 00:48] VITALS: BP 102/57
[2016-11-03] MEDS: HEPARIN SOD (PORCINE) 5000 UNITS/ML VIAL SC SCH ×4 (01:31→22:01)
[2016-11-03] MEDS: PIPERACILLIN/TAZOBACTAM SOD 3.375 GM in D5W MINI-BAG PLUS 50 ML IV SCH ×5 (01:31→23:25)
[2016-11-03] MEDS: PERCOCET 5MG/325MG TAB PO PRN ×2 (01:33→13:13)
[2016-11-03 05:35] LABS: BASO % 0.4 % (0.0-1.0); EOS # 0.2 K/mm3 (0.0-0.50); EOS % 2.2 % (0.0-3.0); LARGE UNSTAINED CELL # 0.8 K/mm3 (0.0-0.4); LARGE UNSTAINED CELL % 6.5 % (0.0-4.0); LYMPH % 10.4 % (24.0-44.0); MEAN CORPUSCULAR HEMOGLOBIN 26.6 pg (27.0-33.0); MEAN CORPUSCULAR HGB CONC 31.3 g/dl (32.0-36.5); MONO # 0.6 K/mm3 (0.0-0.8); MONO % 5.4 % (0.0-5.0); NEUTROPHILS # 8.8 K/mm3 (1.8-7.7); NEUTROPHILS % 75.1 % (36.0-66.0); PLATELET COUNT, AUTOMATED 210 k/mm3 (150-450); RED CELL DISTRIBUTION WIDTH 15.4 % (11.5-14.5); WHITE BLOOD COUNT 11.7 K/mm3 (4.0-10.0)
[2016-11-03 05:54] LABS: CALCIUM LEVEL 9.2 MG/DL (8.8-10.2); CREATININE FOR GFR 1.45 MG/DL (0.55-1.02); GLOMERULAR FILTRATION RATE 37.2 (>39); MAGNESIUM LEVEL 1.9 MG/DL (1.8-2.4); POTASSIUM SERUM 3.7 MEQ/L (3.5-5.1)
[2016-11-03 06:00] VITALS: BP 92/65
[2016-11-03 07:00] LABS: YEAST LIKE CELL URINE AUTO SMALL
[2016-11-03] MEDS ORDERED: NS 1,000 ML IV SCH (08:15)
--- NOTE | 2016-11-03 08:21 | REP ---
Portable chest, single AP view: Comparison is the 09/07/2016. Lung navarro are clear. Cardiac size is upper normal for portable positioning. The cheryl, mediastinum, bony thorax are unremarkable. The study is diffusely underpenetrated, possibly a consequence of patient body habitus. There is no interval change. Impression: There are no acute cardiopulmonary findings. Signed by Nicolas Leigh MD 11/03/2016 08:12 A
[2016-11-03] MEDS: NYSTATIN 100,000 UNITS/GM TOPICAL PWD 15 GM TOP SCH ×2 (10:07→22:01)
[2016-11-03] MEDS: LACTOBACILLUS ACIDOPHILUS CAP (BACID) PO SCH (10:08)
[2016-11-03] MEDS: ASPIRIN 81 MG ENTERIC TAB PO SCH (10:08)
[2016-11-03] MEDS: POTASSIUM CHLORIDE 10 MEQ SR TABLET PO SCH (10:08)
[2016-11-03] MEDS: MAGNESIUM GLUCONATE 500 MG TAB PO SCH ×2 (10:08→22:00)
[2016-11-03] MEDS: ROSUVASTATIN 10 MG TAB (CRESTOR) PO SCH (10:08)
[2016-11-03] MEDS: LEVOTHYROXINE 0.15 MG TAB (150 MCG) PO SCH (10:12)
--- NOTE | 2016-11-03 12:46 | IPNPDOC ---
Text Note Date of Service The patient was seen on 11/03/16. NOTE Subjective: Pt states there is minimal improvement of her cellulitis. No pain. Slept well last night. Objective: Vitals: (see below) General: No acute distress, laying comfortably in bed. HEENT: Moist mucous membranes. Neck: No JVD or lymphadenopathy Cardiac: RRR, No murmurs Pulm: Clear to auscultation b/l. No wheezing, rhonchi Abd: NT/ND + BS. Morbidly obese Ext: 1-2 + pitting edema BLE. Chronic venous states changes. Erythema and tenderness at the tibial region b/l with open ulcer LLE. No active drainage. No induration. Distal pulses intact. Labs (see below) Images: LE U/S 11/02/16 Impression: No evidence of deep vein thrombosis in either femoral popliteal venous system. CT head 11/02/16 Impression: Negative study. CXR 11/02/16 Impression: There are no acute cardiopulmonary findings. Assessment/Plan 1. BLE cellulitis - patient with chronic venous stasis and chronic lymphedema -- >recurrent cellulitis. Failed outpatient antibiotics. Blood cultures wound culture sent. Started empirically on Septra early and Zosyn. We'll continue to monitor CRP markers. Ultrasound lower extremity negative for DVT. We'll continue to monitor. 2. CKD- Baseline creatinine. Avoid nephrotoxins. Strict I/O. 3. Hypothyroidism- on Synthroid 4. Diarrhea- resolved; patient states this was while she was taking doxycycline. Last episode of diarrhea was yesterday. 5. Morbid obesity DVT prophy: Heparin subcutaneous VS,Fishbone, I+O VS, Fishbone, I+O Laboratory Tests 11/02/16 18:29 Red Blood Count 4.53, Mean Corpuscular Volume 85.6, Mean Corpuscular Hemoglobin 28.2, Mean Corpuscular Hemoglobin Concent 33.0, Red Cell Distribution Width 15.3 H, Neutrophils (%) (Auto) 76.7 H, Lymphocytes (%) (Auto) 10.4 L, Monocytes (%) (Auto) 4.5, Eosinophils (%) (Auto) 1.7, Basophils (%) (Auto) 0.5, Neutrophils # (Auto) 9.8 H, Lymphocytes # (Auto) 1.3 L, Monocytes # (Auto) 0.6, Eosinophils # (Auto) 0.2, Basophils # (Auto) 0.1 11/02/16 19:39 11/03/16 05:25 Red Blood Count 4.40, Mean Corpuscular Volume 85.0, Mean Corpuscular Hemoglobin 26.6 L, Mean Corpuscular Hemoglobin Concent 31.3 L, Red Cell Distribution Width 15.4 H, Neutrophils (%) (Auto) 75.1 H, Lymphocytes (%) (Auto) 10.4 L, Monocytes (%) (Auto) 5.4 H, Eosinophils (%) (Auto) 2.2, Basophils (%) (Auto) 0.4, Neutrophils # (Auto) 8.8 H, Lymphocytes # (Auto) 2.0, Monocytes # (Auto) 0.6, Eosinophils # (Auto) 0.2, Basophils # (Auto) 0.0, Calcium Level 9.2 Vital Signs Date Time Temp Pulse Resp B/P Pulse Ox O2 Delivery O2 Flow Rate FiO2 11/03/16 06:00 97.6 77 19 92/65 94 High Flow Cannula 3.0 I&O- Last 24 Hours up to 6 AM 11/03/16 06:00 Intake Total 0 ml Output Total 300 ml Balance -300 ml MCKENNA CLARK MD Nov 03, 2016 12:46
[2016-11-03 14:00] VITALS: BP 114/53
--- NOTE | 2016-11-03 20:31 | ECGEPIP ---
Stationary ECG Study [facility] - ED Test Date: 2016-11-02 Pat Name: ROGELIO JACOBS Department: Room: [place] [address] Gender: F Spreader Operator: Jean-BaptisteB: 1940 Requested By: Gina Duarte Order Number: [id number] Reading MD: Roseanna Ray Measurements Intervals Moody Rate: 86 P: 69 MN: 145 QRS: 2 QRSD: 114 T: 78 QT: 363 QTc: 435 Interpretive Statements SINUS RHYTHM WITH SINUS ARRHYTHMIA POSSIBLE ANTERIOR MYOCARDIAL INFARCTION, OF INDETERMINATE AGE NSTTW ABNORMALITY Electronically Signed On 11-03-2016 20:30:42 EDT by Roseanna Ray
[2016-11-03 22:00] VITALS: BP 100/52
[2016-11-03] MEDS: MORPHINE 2 MG/ML 1ML SYRINGE IV PRN (23:26)
[2016-11-04] MEDS: PIPERACILLIN/TAZOBACTAM SOD 3.375 GM in D5W MINI-BAG PLUS 50 ML IV SCH ×4 (05:52→23:55)
[2016-11-04] MEDS: LEVOTHYROXINE 0.15 MG TAB (150 MCG) PO SCH (05:52)
[2016-11-04] MEDS: HEPARIN SOD (PORCINE) 5000 UNITS/ML VIAL SC SCH ×3 (05:52→20:51)
[2016-11-04 06:00] VITALS: BP 101/54
[2016-11-04 07:02] LABS: BASO # 0.1 K/mm3 (0.0-0.2); BASO % 0.5 % (0.0-1.0); EOS # 0.3 K/mm3 (0.0-0.50); EOS % 2.7 % (0.0-3.0); LARGE UNSTAINED CELL # 0.7 K/mm3 (0.0-0.4); LYMPH # 2.1 K/mm3 (1.5-4.5); LYMPH % 12.5 % (24.0-44.0); MEAN CORPUSCULAR HEMOGLOBIN 27.1 pg (27.0-33.0); MEAN CORPUSCULAR HGB CONC 31.6 g/dl (32.0-36.5); MEAN CORPUSCULAR VOLUME 85.8 fl (80.0-96.0); MONO # 0.5 K/mm3 (0.0-0.8); MONO % 4.6 % (0.0-5.0); NEUTROPHILS # 8.5 K/mm3 (1.8-7.7); NEUTROPHILS % 73.8 % (36.0-66.0); PLATELET COUNT, AUTOMATED 251 k/mm3 (150-450); RED CELL DISTRIBUTION WIDTH 15.5 % (11.5-14.5); WHITE BLOOD COUNT 11.6 K/mm3 (4.0-10.0)
[2016-11-04 07:14] LABS: CALCIUM LEVEL 8.8 MG/DL (8.8-10.2); CREATININE FOR GFR 1.64 MG/DL (0.55-1.02); GLOMERULAR FILTRATION RATE 32.3 (>39); MAGNESIUM LEVEL 1.8 MG/DL (1.8-2.4); POTASSIUM SERUM 3.7 MEQ/L (3.5-5.1)
[2016-11-04] MEDS: LACTOBACILLUS ACIDOPHILUS CAP (BACID) PO SCH ×2 (09:27→18:10)
[2016-11-04] MEDS: MAGNESIUM GLUCONATE 500 MG TAB PO SCH ×2 (09:27→20:51)
[2016-11-04] MEDS: ROSUVASTATIN 10 MG TAB (CRESTOR) PO SCH (09:27)
[2016-11-04] MEDS: ASPIRIN 81 MG ENTERIC TAB PO SCH (09:28)
[2016-11-04] MEDS: NYSTATIN 100,000 UNITS/GM TOPICAL PWD 15 GM TOP SCH ×2 (09:28→20:52)
[2016-11-04] MEDS: POTASSIUM CHLORIDE 10 MEQ SR TABLET PO SCH (09:28)
[2016-11-04 10:11] LABS: ERYTHROCYTE SEDIMENTATION RATE 65 mm/hr (0-30)
[2016-11-04] MEDS: CEFTAROLINE FOSAMIL 600 MG in D5W MINI-BAG PLUS 50 ML IV SCH (11:52)
[2016-11-04 14:00] VITALS: BP 114/51
[2016-11-04] MEDS ORDERED: SODIUM CHLORIDE 0.9% 1000 ML IV ONE (15:00)
--- NOTE | 2016-11-04 16:05 | IPN ---
DATE: 11/04/2016 SUBJECTIVE: Patient is seen and examined in the room today. Patient is sitting on a chair without any distress. Patient stated her lower extremity redness and swelling shows some visible improvement. No overnight events are reported. OBJECTIVE: VITAL SIGNS: Temperature 98.4, pulse 75, respirations 18, blood pressure 101/54, pulse oximetry 91% in room air. GENERAL: No sign of acute distress. Morbidly obese. Alert and oriented times three. HEENT: Mildly dry oral mucosa. No jugular venous distention (JVD) appreciated. CARDIOVASCULAR: Positive S1, S2, regular rate. LUNGS: Clear to auscultation bilaterally. ABDOMEN: Soft, nontender, nondistended. Bowel sounds present. Morbidly obese. EXTREMITIES: 1+ to 2+ pitting edema bilaterally. Erythematous and tenderness to palpation of bilateral lower extremities. There are multiple open sores, especially on the esquivel, but no active discharge, no foul smell, no sign of cyanosis. LABORATORY DATA: WBC 11.6, hemoglobin 11.6, hematocrit 36.6, platelet count 251. Sodium 140, potassium 3.7, chloride 107, carbon dioxide 25, BUN 21, creatinine 1.64, GFR 32.3, fasting glucose 101, calcium 8.8, magnesium 1.8, C-reactive protein 5.51. ASSESSMENT AND PLAN: 1. Bilateral lower extremity cellulitis. Patient's culture came back positive for Pseudomonas. Patient is currently on Zosyn. Will discontinue the Teflaro. C-reactive protein has been improving. 2. Chronic venous stasis changes. Will recommend leg elevation. 3. Acute kidney disease. On 09/07/2016, patient had normal renal function, creatinine at 0.97, glomerular filtration rate (GFR) 59.1, and in the past 3 days patient has worsening renal function, creatinine 1.6, GFR 32.3. Will trial gentle hydration. Will monitor renal function. 4. Hypothyroidism, on Synthroid. Will follow with thyroid stimulating hormone (TSH) tomorrow. 5. History of diarrhea, resolved. Suspected the diarrhea is due to doxycycline. Last episode of diarrhea was on 11/02/2016. 6. Morbid obesity. 7. Deep venous thrombosis (DVT) prophylaxis. Patient is on heparin.
[2016-11-04] MEDS: MORPHINE 2 MG/ML 1ML SYRINGE IV PRN (21:56)
[2016-11-04 22:00] VITALS: BP 120/58
[2016-11-05] MEDS: PERCOCET 5MG/325MG TAB PO PRN
[2016-11-05] MEDS: LEVOTHYROXINE 0.15 MG TAB (150 MCG) PO SCH (05:37)
[2016-11-05] MEDS: PIPERACILLIN/TAZOBACTAM SOD 3.375 GM in D5W MINI-BAG PLUS 50 ML IV SCH ×4 (05:37→23:58)
[2016-11-05] MEDS: HEPARIN SOD (PORCINE) 5000 UNITS/ML VIAL SC SCH ×3 (05:37→20:16)
[2016-11-05] MEDS: MORPHINE 2 MG/ML 1ML SYRINGE IV PRN (05:57)
[2016-11-05 06:00] VITALS: BP 122/57
[2016-11-05 06:59] LABS: BASO % 0.6 % (0.0-1.0); EOS # 0.2 K/mm3 (0.0-0.50); EOS % 2.5 % (0.0-3.0); LARGE UNSTAINED CELL # 0.6 K/mm3 (0.0-0.4); LARGE UNSTAINED CELL % 6.7 % (0.0-4.0); LYMPH # 1.8 K/mm3 (1.5-4.5); LYMPH % 14.4 % (24.0-44.0); MEAN CORPUSCULAR HEMOGLOBIN 26.8 pg (27.0-33.0); MEAN CORPUSCULAR HGB CONC 31.5 g/dl (32.0-36.5); MEAN CORPUSCULAR VOLUME 85.1 fl (80.0-96.0); MONO # 0.5 K/mm3 (0.0-0.8); MONO % 5.5 % (0.0-5.0); NEUTROPHILS % 70.3 % (36.0-66.0); PLATELET COUNT, AUTOMATED 296 k/mm3 (150-450); RED CELL DISTRIBUTION WIDTH 15.4 % (11.5-14.5); WHITE BLOOD COUNT 8.6 K/mm3 (4.0-10.0)
[2016-11-05 07:25] LABS: ERYTHROCYTE SEDIMENTATION RATE 58 mm/hr (0-30)
[2016-11-05 07:29] LABS: CALCIUM LEVEL 8.6 MG/DL (8.8-10.2); CREATININE FOR GFR 1.6 MG/DL (0.55-1.02); GLOMERULAR FILTRATION RATE 33.2 (>39); MAGNESIUM LEVEL 1.9 MG/DL (1.8-2.4); POTASSIUM SERUM 3.5 MEQ/L (3.5-5.1)
[2016-11-05] MEDS: LACTOBACILLUS ACIDOPHILUS CAP (BACID) PO SCH ×3 (08:49→17:49)
[2016-11-05] MEDS: MAGNESIUM GLUCONATE 500 MG TAB PO SCH ×2 (08:50→20:16)
[2016-11-05] MEDS: POTASSIUM CHLORIDE 10 MEQ SR TABLET PO SCH (08:50)
[2016-11-05] MEDS: ASPIRIN 81 MG ENTERIC TAB PO SCH (08:50)
[2016-11-05] MEDS: ROSUVASTATIN 10 MG TAB (CRESTOR) PO SCH (08:51)
[2016-11-05] MEDS: NYSTATIN 100,000 UNITS/GM TOPICAL PWD 15 GM TOP SCH ×2 (08:51→20:17)
[2016-11-05 10:19] LABS: FREE T4 0.88 NG/DL (0.76-1.46)
[2016-11-05] MEDS ORDERED: SODIUM CHLORIDE 0.9% 1000 ML IV ONE (12:45)
[2016-11-05 14:00] VITALS: BP 123/60
--- NOTE | 2016-11-05 16:06 | IPN ---
DATE: 11/05/2016 SUBJECTIVE: Patient is seen and examined in the room today. Patient stated that during physical therapy patient cannot perform much due to the bilateral lower extremity pain and the back pain. At home, patient usually sleeps on the recliner. Patient only moves around the house when she tries to use the computer or she goes to the restroom. Otherwise, she does not have any significant activities at baseline. Patient stated her lower extremity wound is improving. OBJECTIVE: VITAL SIGNS: Temperature is 97.7, pulse is 63, respirations 17, blood pressure is 122/57, pulse oximetry is 92% in room air. GENERAL: No acute distress, morbidly obese, alert and oriented times three. HEENT: Dry oral mucosa. No jugular venous distention (JVD) appreciated. Normocephalic, atraumatic. CARDIOVASCULAR: Positive S1, S2, regular rate. LUNGS: Clear to auscultation bilaterally. ABDOMEN: Soft, nontender, nondistended. Bowel sounds present. EXTREMITIES: 1+ to 2+ pitting edema bilaterally. There is erythema and tenderness of bilateral lower extremities upon palpation. There are some open sores, on the bilateral shins, left side is worse than the right side but there is no active discharge, no foul smell. No sign of cyanosis. LABORATORY DATA: WBC is 8.6, hemoglobin is 11.4, hematocrit 36.2, platelet count is 296. Sodium is 141, potassium 3.5, chloride is 108, carbon dioxide 24, BUN is 19, creatinine 1.6, GFR is 33.2, fasting glucose 95, calcium 8.6, magnesium 1.9, C-reactive protein is 4.17. Free T4 is 0.88 with a TSH of 16.8. ASSESSMENT AND PLAN: 1. Bilateral lower extremity cellulitis. Culture positive for Pseudomonas. Patient is currently on Zosyn. Discontinued the Teflaro. C-reactive protein continues to improve. Patient's lesions are also improving. 2. Bilateral chronic venous stasis changes. Patient has been resting on the recliner most of the time even in the hospital and patient has decreased mobility due to complaint about the pain. Patient refused to sleep on the bed which creates a significant issue for the chronic venous stasis measurement. 3. Acute kidney injury. Clinically, patient is dry and patient also had a history of diarrhea. I will continue to give the patient a small amount of bolus to maintain hydration. Patient does have chronic lymphedema and fluid management is rather difficult in this patient. 4. Hypothyroidism. Patient has a normal free T4. 5. History of diarrhea, resolved. Suspect diarrhea is due to the doxycycline adverse effect. Last episode of diarrhea was 11/02/2016. 6. Morbid obesity. 7. Stage II pressure injury at the buttocks. Recommend increased movement and recommend patient try to increase her activity level so she does not stay sitting on the chair for prolonged duration. However, patient is not very compliant with recommendations. 8. Deep venous thrombosis (DVT) prophylaxis. Heparin. MTDD
[2016-11-05 22:00] VITALS: BP 129/60
[2016-11-06] MEDS: HEPARIN SOD (PORCINE) 5000 UNITS/ML VIAL SC SCH ×3 (05:38→20:37)
[2016-11-06] MEDS: LEVOTHYROXINE 0.15 MG TAB (150 MCG) PO SCH (05:39)
[2016-11-06] MEDS: PIPERACILLIN/TAZOBACTAM SOD 3.375 GM in D5W MINI-BAG PLUS 50 ML IV SCH ×3 (05:39→17:13)
[2016-11-06 06:00] VITALS: BP 133/59
[2016-11-06 07:02] LABS: BASO % 0.3 % (0.0-1.0); EOS # 0.2 K/mm3 (0.0-0.50); EOS % 2.1 % (0.0-3.0); LARGE UNSTAINED CELL # 0.3 K/mm3 (0.0-0.4); LARGE UNSTAINED CELL % 3.5 % (0.0-4.0); LYMPH % 12.9 % (24.0-44.0); MEAN CORPUSCULAR HEMOGLOBIN 28.6 pg (27.0-33.0); MEAN CORPUSCULAR HGB CONC 33.5 g/dl (32.0-36.5); MEAN CORPUSCULAR VOLUME 85.4 fl (80.0-96.0); MONO # 0.3 K/mm3 (0.0-0.8); MONO % 4.3 % (0.0-5.0); NEUTROPHILS # 6.2 K/mm3 (1.8-7.7); NEUTROPHILS % 76.8 % (36.0-66.0); PLATELET COUNT, AUTOMATED 343 k/mm3 (150-450); RED CELL DISTRIBUTION WIDTH 15.7 % (11.5-14.5)
[2016-11-06 07:09] LABS: CALCIUM LEVEL 8.6 MG/DL (8.8-10.2); CREATININE FOR GFR 1.95 MG/DL (0.55-1.02); GLOMERULAR FILTRATION RATE 26.4 (>39); MAGNESIUM LEVEL 1.9 MG/DL (1.8-2.4); POTASSIUM SERUM 3.9 MEQ/L (3.5-5.1)
[2016-11-06] MEDS: ROSUVASTATIN 10 MG TAB (CRESTOR) PO SCH (09:11)
[2016-11-06] MEDS: ASPIRIN 81 MG ENTERIC TAB PO SCH (09:11)
[2016-11-06] MEDS: POTASSIUM CHLORIDE 10 MEQ SR TABLET PO SCH (09:11)
[2016-11-06] MEDS: NYSTATIN 100,000 UNITS/GM TOPICAL PWD 15 GM TOP SCH ×2 (09:12→20:37)
[2016-11-06] MEDS: LACTOBACILLUS ACIDOPHILUS CAP (BACID) PO SCH ×3 (09:12→17:12)
[2016-11-06] MEDS: MAGNESIUM GLUCONATE 500 MG TAB PO SCH ×2 (09:12→20:36)
[2016-11-06] MEDS: PERCOCET 5MG/325MG TAB PO PRN (09:13)
[2016-11-06 14:00] VITALS: BP 115/66
--- NOTE | 2016-11-06 21:39 | IPN ---
DATE: 11/06/2016 SUBJECTIVE: The patient is seen and examined in the room today. The patient stated her lower extremity cellulitis has been improving. The patient does not have any complaint of acute changes. The patient stated she tried her best to work with physical therapy. OBJECTIVE: Vital signs: Temperature 98.5, pulse 66, respirations 20, blood pressure 133/59, pulse oximetry 92% on room air. GENERAL: No sign of acute distress. Morbidly obese. Alert and oriented times three. HEENT: Normocephalic, atraumatic. Extraocular motors grossly intact. CARDIOVASCULAR: Positive S1, S2. Regular rate. LUNGS: Clear to auscultation bilaterally. ABDOMEN: Obese. Soft, nontender, nondistended. Bowel sounds present. EXTREMITIES: 1 to 2 pitting edema bilaterally. There is tenderness of bilateral lower extremities near the chronic venous stasis site. There are some sore at the bilateral lower extremity, more significant on the left esquivel, but no active discharge noted. No foul smelling. No sign of cyanosis. LABORATORY DATA: WBC is 8, hemoglobin 11.9, hematocrit 35.6, platelet count is 343. Sodium is 139, potassium 3.9, chloride is 109. Carbon dioxide 22. BUN 19, creatinine is 1.95. GFR is 26.4. Fasting glucose 97. Calcium is 8.6. Magnesium 1.9. ASSESSMENT AND PLAN: 1. Bilateral lower extremity cellulitis. Culture positive for pseudomonas. Patient on Zosyn. C-reactive protein continues to improve. Clinically the patient's lesion is improving. 2. Bilateral chronic venous stasis changes of the bilateral lower extremities. The patient has not been using the leg elevation to improve her symptoms and the patient was not able to increase ambulation due to complaint of lower extremity pain. [facility] management for her venous stasis rather difficult. 3. Acute kidney injury. For the past few days, the patient continues to have fluctuation of renal function. I have discussed the case with the yard switcher, Dr. Garcia. Would appreciate his assistance. 4. Hypothyroidism. The patient is on Synthroid. 5. History of diarrhea. Resolved. Suspect the diarrhea is due to the doxycycline adverse affect. Last episode of diarrhea is November 02, 2016. 6. Morbid obesity. 7. Stage III pressure ulcer on the buttock. Recommend increased movement and activity level, however, the patient has been sitting on her chair most of the time. 8. Deep venous thrombosis (DVT) prophylaxis. The patient is on heparin.
--- NOTE | 2016-11-06 21:56 | CR ---
DATE OF CONSULTATION: 11/06/2016 Nephrology consultation for Iris Matthews REASON FOR CONSULTATION: Acute renal failure superimposed on chronic kidney disease. HISTORY OF PRESENT ILLNESS: Ms. Rea is a 76-year-old morbidly obese female with known history of recurrent lower extremity cellulitis and chronic stasis dermatitis. She also has known history of prior bilateral kidney stones and gallstones. She was admitted to on 11/02/2016, due to generalized weakness and lower extremity cellulitis. She has been treated with antibiotics and cellulitis seems to have improved. Her kidney function got worse due to which a nephrology consultation was requested this morning. PAST MEDICAL AND SURGICAL HISTORY: Significant for: 1. Hypertension. 2. Hypothyroidism. 3. History of chronic stasis dermatitis and lymphedema. 4. History of MRSA infection. 5. History of recurrent cellulitis of lower extremities. 6. Dyslipidemia. 7. Morbid obesity. 8. History of stage III of chronic kidney disease. 9. History of gallstones. 10. History of bilateral kidney stones. Past surgical history is significant for lumbar laminectomy, hysterectomy, appendectomy, dilatation and curettage (D C) and right knee surgery. ALLERGIES: The patient has multiple allergies including SULFA, CLINDAMYCIN, PHENOBARBITAL, LATEX and pineapples. MEDICATIONS: Home medications include: Augmentin one twice a day, aspirin 81 mg daily, vitamin D 50,000 units every 2 weeks, ibandronate 150 mg once a month, Bacid one tablet daily, levothyroxine 150 mcg daily, magnesium gluconate 500 mg twice a day, potassium chloride 10 mEq daily and Crestor 40 mg daily. CURRENT MEDICATIONS: In the hospital include: Aspirin 81 mg daily, levothyroxine 150 mcg daily, magnesium gluconate 500 mg twice a day, potassium 10 mEq daily, Crestor 40 mg daily, Zosyn 3.375 grams every 6 hours, Atarax 10 mg as needed for itching, Percocet as needed for pain, Zofran as needed for nausea and heparin 5000 units every 8 hours. PERSONAL AND SOCIAL HISTORY: The patient lives with her significant other. She does not smoke or drink alcohol. She denies any drug use. FAMILY HISTORY: Negative for kidney problems or end-stage renal disease. REVIEW OF SYSTEMS: The patient denies any fever or chills. She is generally very limited in mobility. Ears, nose and throat are unremarkable. She denies any dizziness or lightheadedness. Cardiovascular system is negative for chest pain. Respiratory system is significant for chronic hypoxemia. She uses oxygen at needed. She has history of obstructive sleep apnea. Gastrointestinal (GI) system negative for nausea, vomiting or diarrhea. Genitourinary () system is negative for dysuria or hematuria. She does have prior history of kidney stones. Musculoskeletal system is significant for bilateral lower extremity edema. She is very limited in mobility, only a few steps in the house. Endocrine system is significant for hypothyroidism. Neurological system is negative for seizures or stroke. Musculoskeletal system is significant for chronic stasis ulcers and dermatitis. Hematological system negative for anticoagulation. She denies any bruising or bleeding. PHYSICAL EXAMINATION: This is a morbidly obese female lying in her bed. Temperature is 98.5 degrees Fahrenheit, heart rate 66 per minute and respiratory rate 20 per minute. Blood pressure 133/59 mmHg and oxygen saturation 92% on room air. Head is atraumatic. Neck veins are only mildly distended. She has no oral thrush or ulcers. Pupils are equal and reactive to light and sclerae is anicteric. Ears, nose and throat are unremarkable. Neck is supple and there is no thyroid enlargement. Heart sounds are regular and lungs clear to auscultation bilaterally. Abdomen soft, obese with mild tenderness in right upper quadrant. Bowel sounds are present. I could not palpate any hepatosplenomegaly. Extremities have chronic stasis changes. There is no evidence of acute cellulitis at present. There is no cyanosis or clubbing. Neurologically she is awake, alert and oriented times three. LABORATORY DATA: Today WBC count is 8.0, hemoglobin 11.9 and hematocrit 35.6. Sodium 139 and potassium 3.9. BUN 19 and creatinine 1.95. Glucose 97 and calcium 8.6. Magnesium 1.9. A TSH level was 16.8 and free T4 0.88 yesterday. C-reactive protein was 3.39. Chest x-ray done on 11/02/2016, showed no acute cardiopulmonary findings. No evidence of deep venous thrombosis (DVT) on Doppler ultrasound. PROBLEMS: 1. Acute renal failure superimposed on chronic kidney disease. The patient has history of bilateral kidney stones with hydronephrosis back in February [address] scan at that time. She had bilateral stones even at that time. I am concerned about possibility of hydronephrosis. She also had gallstones with a gallstone in the neck of gallbladder. She is tender in right upper quadrant and may have cholecystitis. She has been on broad-spectrum antibiotics. However, we need to rule out any possibility of stone related problem. We will get a CT scan of abdomen and pelvis without IV contrast. She is not on any nephrotoxic medications and I suggest to dose adjust all medications including Zosyn. We will cut down the dose of Zosyn to 2.2 grams every 8 hours. 2. Lower extremity cellulitis. Her cellulitis seems to have improved. I do not feel that she needs antibiotic for cellulitis anymore. However, she may have other reasons for continued antibiotic use. 3. History of congestive heart failure. At present she seems to be euvolemic clinically. I do not feel that there is any evidence of congestive heart failure. We will not use any diuretics. I thank you for involving me in the care of Mrs. Rea. I will follow her along with you.
[2016-11-06 22:00] VITALS: BP 127/62
[2016-11-07] MEDS: PERCOCET 5MG/325MG TAB PO PRN ×2 (00:02→16:08)
[2016-11-07] MEDS: PIPERACILLIN/TAZOBACTAM SOD 3.375 GM in D5W MINI-BAG PLUS 50 ML IV SCH ×4 (00:02→17:44)
[2016-11-07] MEDS: HEPARIN SOD (PORCINE) 5000 UNITS/ML VIAL SC SCH ×3 (05:43→21:02)
[2016-11-07] MEDS: LEVOTHYROXINE 0.15 MG TAB (150 MCG) PO SCH (05:43)
[2016-11-07 06:00] VITALS: BP 136/60
[2016-11-07 06:55] LABS: BASO % 0.4 % (0.0-1.0); EOS # 0.2 K/mm3 (0.0-0.50); EOS % 1.8 % (0.0-3.0); LARGE UNSTAINED CELL # 0.3 K/mm3 (0.0-0.4); LARGE UNSTAINED CELL % 3.6 % (0.0-4.0); LYMPH # 1.2 K/mm3 (1.5-4.5); LYMPH % 14.6 % (24.0-44.0); MEAN CORPUSCULAR HEMOGLOBIN 29.1 pg (27.0-33.0); MEAN CORPUSCULAR VOLUME 85.8 fl (80.0-96.0); MONO # 0.3 K/mm3 (0.0-0.8); MONO % 3.9 % (0.0-5.0); NEUTROPHILS # 6.4 K/mm3 (1.8-7.7); NEUTROPHILS % 75.7 % (36.0-66.0); PLATELET COUNT, AUTOMATED 420 k/mm3 (150-450); WHITE BLOOD COUNT 8.4 K/mm3 (4.0-10.0)
[2016-11-07 07:07] LABS: ERYTHROCYTE SEDIMENTATION RATE 62 mm/hr (0-30)
[2016-11-07 07:12] LABS: CALCIUM LEVEL 8.8 MG/DL (8.8-10.2); CREATININE FOR GFR 2.28 MG/DL (0.55-1.02); GLOMERULAR FILTRATION RATE 22.1 (>39); MAGNESIUM LEVEL 2.1 MG/DL (1.8-2.4); POTASSIUM SERUM 3.9 MEQ/L (3.5-5.1)
[2016-11-07] MEDS: ASPIRIN 81 MG ENTERIC TAB PO SCH (08:58)
[2016-11-07] MEDS: LACTOBACILLUS ACIDOPHILUS CAP (BACID) PO SCH ×3 (08:58→17:28)
[2016-11-07] MEDS: ROSUVASTATIN 10 MG TAB (CRESTOR) PO SCH (08:59)
[2016-11-07] MEDS: NYSTATIN 100,000 UNITS/GM TOPICAL PWD 15 GM TOP SCH ×2 (08:59→20:36)
[2016-11-07] MEDS: POTASSIUM CHLORIDE 10 MEQ SR TABLET PO SCH (08:59)
[2016-11-07] MEDS: MAGNESIUM GLUCONATE 500 MG TAB PO SCH ×2 (08:59→19:31)
[2016-11-07] MEDS: MORPHINE 2 MG/ML 1ML SYRINGE IV PRN (09:05)
--- NOTE | 2016-11-07 11:47 | REP ---
REASON: History of nephrolithiasis and hydronephrosis. COMPARISON: Multiple latest 02/15/2016 which showed an obstructing 5 mm size calculus in the left ureterovesical junction resulting in hydronephrosis. Numerable bilateral nephroliths were noted. Cholelithiasis was also noted along with a small umbilical hernia. The lung bases show small to moderate bilateral pleural effusions with patchy bibasilar opacities particularly left lung base with some air bronchograms. Limited evaluation of the solid intra-abdominal organs show no gross abnormalities or significant changes from the prior exam. Note is again made of cholelithiasis. Limited evaluation of the pancreas and adrenal glands show no gross abnormalities or significant changes from the prior exam. Once again, there is bilateral nephrolithiasis. In the left renal collecting system, there is a large calculus having the appearance of a developing staghorn calculus. This calculus is seen not only in multiple calices but in the left renal pelvis extending into the proximal left ureter. There is resulting moderate left sided hydronephrosis. There are numerable right renal calculi which are not causing obstructive phenomena. In the distal right ureter, there is a 6 mm sized calculus which is causing mild right sided hydronephrosis and hydroureter proximal to the inciting factor. There are no urinary bladder calcifications. There is an unchanged ventral hernia. There is no free fluid or free air in the abdomen or pelvis. The intra-abdominal and intrapelvic bowel loops are essentially unchanged. Bone window technique throughout the exam shows the osseous structures to be stable and intact. Limited evaluation of the abdominal aorta and para-aortic regions show no gross abnormalities or significant changes from the prior exam. There is stable appearing calcific atherosclerotic change. IMPRESSION: 1. Bilateral nephroliths and causing bilateral hydronephrosis and right sided hydroureter secondary to a right sided ureterolith as described above. 2. There is known cholelithiasis and there is a known ventral hernia as described above. 3. Other findings as described above. Signed by Zeke Berry DO 11/07/2016 11:53 A
[2016-11-07 14:00] VITALS: BP 123/59
--- NOTE | 2016-11-07 15:13 | IPN ---
DATE: 11/07/2016 SUBJECTIVE: The patient is seen and examined in the room today. The patient is sitting comfortably on her recliner chair. Per patient, the patient's been sleeping on her recliner chair for the past many years, even at home. The patient denies any acute complaints, acute symptoms. Denies any chest pain or shortness of breath. The patient also noted to have improvement of her bilateral lower extremity cellulitis. No overnight events are reported. OBJECTIVE: VITAL SIGNS: Temperature is 97.6, pulse 64, respirations 20, blood pressure 136/60, pulse oximetry is 94% in room air. GENERAL: No sign of acute distress. Morbidly obese. Alert and oriented times three. HEENT: Normocephalic, atraumatic. Extraocular motor grossly intact. CARDIOVASCULAR: Positive S1, S2. Regular rate. LUNGS: Clear to auscultation bilaterally. ABDOMEN: Morbidly obese, soft, nontender, nondistended. Bowel sounds present. EXTREMITIES: 1-2 pitting edema bilaterally. Tenderness to palpation at the site of where she had chronic venous stasis. Still has some sores at the bilateral lower extremities, more significant on the left esquivel, but I cannot appreciate any active discharge. No foul smelling. LABORATORY DATA: WBC is 8.4, hemoglobin 11.5, hematocrit 33.9, platelet count is 420, ESR is 62. Sodium is 139, potassium 3.9, chloride is 108, carbon dioxide 22, BUN 20, creatinine is 2.28, GFR is 22.1, fasting glucose 117, calcium is 8.8, magnesium is 2.1, C-reactive protein is 4.5. ASSESSMENT AND PLAN: 1. Acute renal failure secondary to bilateral nephroliths. At baseline, the patient has a creatinine of 0.97 in August 2016. For the past few days, the patient has been having progressively worsening renal function. Creatinine increased from 1.[address] of abdomen and pelvis was just done today and CT results show bilateral nephroliths causing bilateral hydronephrosis and right-sided hydroureter secondary to right-sided ureterolith. The urologist, Dr. Cheung, has been consulted and is scheduled to bring the patient to the operating room (OR). At baseline, the patient has a MET of less than 4 and the patient also has been sitting on her recliner and she does not have any activity at her baseline. The patient also has morbid obesity. The patient does not have any lung history. The patient's EKGs are reviewed. The risks and benefits were explained to the patient and the patient agreed for the stone removal procedures. Clinically, the benefit outweighs the risks for the patient. Currently, the patient is optimized for the stone removal procedures. 2. Bilateral lower extremity cellulitis. Positive for pseudomonas, sensitive to Zosyn. Patient has been taking Zosyn in the past few days. The patient's lesion is being monitored clinically on a daily basis and is improving. 3. Bilateral chronic venous stasis changes of the bilateral lower extremities. The patient has been sitting on her recliner and it is fairly difficult to achieve leg elevation. When suggesting for the patient to sleep on the bed so her leg can be easily elevated to above her heart, the patient refused the recommendations. 4. Hypothyroidism, on Synthroid. 5. History of diarrhea, resolved. Suspect diarrhea due to the doxycycline. 6. Morbid obesity. 7. Stage II pressure ulcer of the buttock. Recommend increased movement and activity level. However, it has been rather difficult. 8. Deep venous thrombosis (DVT) prophylaxis. The patient is on heparin. The case was discussed with the on-call urologist, Dr. Cheung. At this moment, the patient is optimized for the procedure. The benefits greatly outweigh the risks for the patient. The patient has been nothing by mouth. Appreciate Dr. Cheung's assistance.
--- NOTE | 2016-11-07 16:30 | IPN ---
DATE: 11/07/2016 Ms. Causey was seen last evening in consultation for acute renal failure superimposed on chronic kidney disease. I had ordered a CT scan of the abdomen and pelvis which the patient declined; however, she is agreeable to get it done this morning. She remains mostly in the recliner chair. She denies any nausea, vomiting, dyspnea or chest pain. She has no fever or chills at present. PHYSICAL EXAMINATION: Temperature 97.6 degrees Fahrenheit, heart rate 64 per minute and respiratory rate 20 per minute. Blood pressure 136/60 mmHg and oxygen saturation 94% on room air. Intake and output records from yesterday showed total intake 1400 and output 400. His neck veins are not abnormally distended. Head is atraumatic. Pupils are equal and reactive to light and sclera is anicteric. Ears, nose and throat are unremarkable. Heart sounds are regular and lungs are clear to auscultation with moderate air entry. Abdomen: Obese and nontender. Right upper quadrant tenderness has improved. Extremities have chronic stasis changes. Neurologically, she is awake, alert and oriented times three. Today's labs show WBC count 8.4, hemoglobin 11.5 and hematocrit 33.9. Sodium 139 and potassium 3.9. BUN 20 and creatinine 2.28. Calcium level 8.8 and magnesium 2.1. C-reactive protein is up to 4.52. PROBLEMS: 1. Acute renal failure superimposed on chronic kidney disease. The patient does not look dehydrated and does not have any nephrotoxic medications at present. Urinalysis showed only 1+ protein, and she has been treated for a urinary tract infection (UTI). I do not suspect that she has acute glomerulonephritis. I have a strong suspicion that she has obstruction either caused by kidney stone or bladder issues. I have discussed with her and she is now willing to go down for CT scan of abdomen and pelvis. Depending upon the results of CT scan, we will make further recommendations. She is probably going to need a urology consultation if she has hydronephrosis or hydroureter. 2. Cellulitis bilateral lower extremities. This has completely resolved. She remains on Zosyn. 3. Anemia. Her anemia is mild and stable and does not need any intervention. 4. Congestive heart failure. The patient is very well compensated at present.
[2016-11-07] MEDS ORDERED: CIPROFLOXACIN IV SCH (20:30)
[2016-11-07] MEDS ORDERED: DILUENT IV SCH (20:30)
[2016-11-07 21:20] VITALS: BP 144/66
[2016-11-07] MEDS ORDERED: CIPROFLOXACIN 200 MG in APPROPRIATE DILUENT 1 EA IV SCH (21:30)
--- NOTE | 2016-11-07 21:52 | SMCUROLCON ---
Urology Consultation General Date of Consultation 11/07/16 Reason For Consultation This patient is seen for Weakness. History of Present Illness The patient is a -year-old with a past medical history for [right 6mm UVJ stone ; LK 4cm stone; ARF]. NPO. Cystoscopy, bilateral RPG, JJ. Cardiology clearance. Medications Current Medications Current Medications Acetaminophen (Tylenol Tab) 650 mg Q4HP PRN PO MILD PAIN OR FEVER; Start at 21:45; Stop 12/02/16 at 21:44 Aspirin (Ecotrin) 81 mg DAILY PO Last administered on 11/07/16 08:58; Start at 09:00; Stop 12/03/16 at 08:59 Cefepime HCl 2 gm/ Dextrose 50 ml @ 100 mls/hr Q12H IV ; Start 11/02/16 at 21: 45; Stop 11/02/16 at 22:46; Status DC Ceftaroline Fosamil 600 mg/ Dextrose 50 ml @ 50 mls/hr Q12H IV Last administered on 11/04/16 11:52; Start 11/02/16 at 23:00; Stop 11/04/16 at 14:49 ; Status DC Ciprofloxacin 200 mg/IV Miscellaneous Supplies 100 ml @ 100 mls/hr ASDIRECTED IV Last administered on 11/07/16 21:24; Start 11/07/16 at 21:30; Stop 11/14/16 at 21:29 Ciprofloxacin 250 mg/IV Miscellaneous Supplies 125 ml @ 100 mls/hr ASDIRECTED IV ; Start 11/07/16 at 20:30; Stop 11/08/16 at 20:29; Status Cancel Heparin Sodium (Porcine) (Heparin) 5,000 units Q8H SC Last administered on 11/07 13:00; Start 11/02/16 at 22:00; Stop 11/11/16 at 21:59 Home Med (Med Rec Complete!) ASDIRECTED XX ; Start 11/02/16 at 22:15; Stop at 22:15; Status DC Hydroxyzine HCl (Atarax) 10 mg QID PRN PO ITCHING; Start 11/02/16 at 22:45; Stop 12/02/16 at 22:44 Lactobacillus Acidophilus (Bacid) 1 ea DAILY PO Last administered on 11/04/16 09:27; Start 11/03/16 at 09:00; Stop 11/04/16 at 16:57; Status DC Lactobacillus Acidophilus (Bacid) 2 ea WM PO Last administered on 11/07/16 13: 00; Start 11/04/16 at 18:00; Stop 12/04/16 at 17:59 Levothyroxine Sodium (Synthroid) 0.15 mg DAILY@06 PO Last administered on 05:43; Start 11/03/16 at 09:00; Stop 12/03/16 at 08:59 Magnesium Gluconate (Magnesium Gluconate) 500 mg BID PO Last administered on 08:59; Start 11/03/16 at 09:00; Stop 12/03/16 at 08:59 Morphine Sulfate (Morphine Sulfate Inj) 1 mg Q4HP PRN IV PAIN Last administered on 11/07/16 09:05; Start 11/02/16 at 22:45; Stop 11/09/16 at 22:44 Nystatin (Mycostatin Powder, Nystop) 1 dose BID TOP Last administered on 20:36; Start 11/03/16 at 09:00; Stop 12/03/16 at 08:59 Ondansetron HCl (ZOFRAN INJection) 4 mg Q6HP PRN IV NAUSEA OR VOMITING; Start 11/02/16 at 21:45; Stop 12/02/16 at 21:44 Oxycodone/ Acetaminophen (Percocet 5mg/ 325mg Tablet) 1 tab Q12HP PRN PO PAIN Last administered on 11/07/16 16:08; Start 11/02/16 at 22:45; Stop 11/09/16 at 22:44 Piperacillin Sod/ Tazobactam Sod 3.375 gm/Dextrose 50 ml @ 50 mls/hr Q6H IV Last administered on 11/07/16 17:44; Start 11/03/16 at 00:00; Stop 11/10/16 at 00:00 Potassium Chloride (Micro-K Extencaps) 10 meq DAILY PO Last administered on 08:59; Start 11/03/16 at 09:00; Stop 12/03/16 at 08:59 Rosuvastatin Calcium (Crestor) 40 mg DAILY PO Last administered on 11/07/16 08 :59; Start 11/03/16 at 09:00; Stop 12/03/16 at 08:59 Sodium Chloride 1,000 ml @ 80 mls/hr [id number] IV Last administered on 10:09; Start 11/03/16 at 08:15; Stop 11/03/16 at 20:44; Status DC Zinc Oxide (Zinc Oxide 20% Oint) APPLY TO LEGS TID PRN TOP REDNESS/IRRITATION; Start 11/02/16 at 22:45; Stop 12/02/16 at 22:44 Allergies Allergies: Coded Allergies: Phenobarbital (Verified Allergy, Intermediate, HIVES, 10/14/12) Sulfa Drugs (Verified Allergy, Intermediate, HIVES, 03/06/13) Latex (Verified Allergy, Unknown, 10/14/12) Pineapple (Verified Allergy, Unknown, 10/14/12) TAPE (Verified Allergy, Unknown, 12/25/04) Clindamycin (Unverified Adverse Reaction, Intermediate, VOMITING, 11/02/16) Vital Signs/I&O Vital Signs Date Time Temp Pulse Resp B/P (MAP) Pulse Ox O2 Delivery O2 Flow Rate FiO2 11/07/16 16:38 18 11/07/16 14:00 98.6 65 123/59 (80) 94 11/07/16 09:10 Room Air 11/06/16 09:43 3.0 I&O- Last 24 Hours up to 6 AM 11/07/16 06:00 Intake Total 1580 ml Output Total 750 ml Balance 830 ml Laboratory Data 24H Labs Laboratory Tests 2 11/07/16 06:22: White Blood Count 8.4, Red Blood Count 3.95L, Hemoglobin 11.5L, Hematocrit 33.9L , Mean Corpuscular Volume 85.8, Mean Corpuscular Hemoglobin 29.1, Mean Corpuscular Hemoglobin Concent 34.0, Red Cell Distribution Width 16.0H, Platelet Count 420, Neutrophils (%) (Auto) 75.7H, Lymphocytes (%) (Auto) 14.6L, Monocytes (%) (Auto) 3.9, Eosinophils (%) (Auto) 1.8, Basophils (%) (Auto) 0.4, Neutrophils # (Auto) 6.4, Lymphocytes # (Auto) 1.2L, Monocytes # (Auto) 0.3, Eosinophils # (Auto) 0.2, Basophils # (Auto) 0.0, Large Unclassified Cells % 3.6 , Large Unclassified Cells # 0.3, Erythrocyte Sedimentation Rate 62H, Anion Gap 9, Glomerular Filtration Rate 22.1L, Blood Urea Nitrogen 20H, Creatinine 2.28H, Sodium Level 139, Potassium Level 3.9, Chloride Level 108H, Carbon Dioxide Level 22, Calcium Level 8.8, Magnesium Level 2.1, C-Reactive Protein, Quantitative 4.52H CBC/BMP Laboratory Tests 11/07/16 06:22 Red Blood Count 3.95 L, Mean Corpuscular Volume 85.8, Mean Corpuscular Hemoglobin 29.1, Mean Corpuscular Hemoglobin Concent 34.0, Red Cell Distribution Width 16.0 H, Neutrophils (%) (Auto) 75.7 H, Lymphocytes (%) (Auto ) 14.6 L, Monocytes (%) (Auto) 3.9, Eosinophils (%) (Auto) 1.8, Basophils (%) ( Auto) 0.4, Neutrophils # (Auto) 6.4, Lymphocytes # (Auto) 1.2 L, Monocytes # ( Auto) 0.3, Eosinophils # (Auto) 0.2, Basophils # (Auto) 0.0, Calcium Level 8.8 Microbiology Microbiology 11/02/16 Blood Culture - Final, Complete NO GROWTH AFTER 5 DAYS 11/02/16 Blood Culture - Final, Complete NO GROWTH AFTER 5 DAYS 11/03/16 Urine Culture - Final, Complete 11/02/16 Gram Stain - Final, Complete 11/02/16 Wound Culture - Final, Complete Pseudomonas Aeruginosa DAILY AVENDANO MD Nov 07, 2016 21:52
[2016-11-07] MEDS ORDERED: CONRAY-60 60% 50ML VIAL (Q9961) As Ordered ONE (22:13)
[2016-11-07] MEDS ORDERED: MIDAZOLAM INJ 2 MG/2 ML VIAL (J2250) As Ordered ONE (22:54)
[2016-11-07] MEDS ORDERED: fentaNYL 250 MCG/5 ML INJECTION (J3010) As Ordered ONE (22:54)
[2016-11-07] MEDS ORDERED: dexameTHASONE 4 MG/ML 1ML VIAL (J1100) As Ordered ONE (22:55)
[2016-11-07] MEDS ORDERED: SUCCINYLCHOLINE 100 MG/5 ML SYRINGE (J0330) As Ordered ONE (22:55)
[2016-11-07] MEDS ORDERED: LIDOCAINE 2% INJ 100 MG/5 ML SDV (FOR ANES.) As Ordered ONE (22:56)
[2016-11-07] MEDS ORDERED: METOCLOPRAMIDE INJ 10MG/2ML VIAL (J2765) As Ordered ONE (22:56)
[2016-11-07] MEDS ORDERED: ROCURONIUM BROMIDE 50 MG/5 ML VIAL As Ordered ONE (22:56)
[2016-11-07] MEDS ORDERED: PROPOFOL 200 MG/20 ML VIAL As Ordered ONE (22:56)
[2016-11-07] MEDS ORDERED: ePHEDrine SULFATE 25 MG/5 ML(5MG/ML) SYRINGE As Ordered ONE (22:56)
[2016-11-07] MEDS ORDERED: ONDANSETRON 4MG/2ML VIAL (J2405) As Ordered ONE (22:57)
[2016-11-07] MEDS ORDERED: DESFLURANE 240 ML INHALANT As Ordered ONE (22:58)
--- NOTE | 2016-11-07 23:30 | ROOPDOC ---
[facility] Report Of Operation Report of Operation DATE OF PROCEDURE: 11/07/16 PREPROCEDURE DIAGNOSIS: [Right ureter stone; LK stones; ARF] POSTPROCEDURE DIAGNOSIS: [Same; left pyuria] PROCEDURE: [Cystoscopy, bilateral RPG, JJ, fluoroscopy] SURGEON: [Pradeep Avendano] FINAL INSPECTOR MOVEMENT ASSEMBLY: [Nil] ANESTHESIA: [GA] DESCRIPTION OF PROCEDURE: [Full dictation. Complications: Nil.] DAILY AVENDANO MD Nov 07, 2016 23:30
[2016-11-07] MEDS ORDERED: ONDANSETRON 4MG/2ML VIAL (J2405) IV PRN (23:45)
[2016-11-07] MEDS ORDERED: fentaNYL 100 MCG/2 ML INJECTION (J3010) IV PRN (23:45)
[2016-11-07] MEDS ORDERED: LR 1,000 ML IV SCH (23:45)
[2016-11-07] MEDS ORDERED: PERCOCET 5MG/325MG TAB PO PRN (23:45)
[2016-11-08] VITALS (12 sets, daily range): BP systolic 104–133; BP diastolic 52–73
[2016-11-08] MEDS: PIPERACILLIN/TAZOBACTAM SOD 3.375 GM in D5W MINI-BAG PLUS 50 ML IV SCH ×2 (01:02→05:41)
[2016-11-08] MEDS: MORPHINE 2 MG/ML 1ML SYRINGE IV PRN (01:38)
[2016-11-08] MEDS: HEPARIN SOD (PORCINE) 5000 UNITS/ML VIAL SC SCH ×3 (05:41→21:57)
[2016-11-08] MEDS: LEVOTHYROXINE 0.15 MG TAB (150 MCG) PO SCH (05:41)
[2016-11-08 06:11] LABS: LARGE UNSTAINED CELL # 0.1 K/mm3 (0.0-0.4); LARGE UNSTAINED CELL % 0.8 % (0.0-4.0); LYMPH # 0.6 K/mm3 (1.5-4.5); LYMPH % 3.7 % (24.0-44.0); MEAN CORPUSCULAR HEMOGLOBIN 27.2 pg (27.0-33.0); MEAN CORPUSCULAR HGB CONC 31.5 g/dl (32.0-36.5); MEAN CORPUSCULAR VOLUME 86.5 fl (80.0-96.0); MONO # 0.3 K/mm3 (0.0-0.8); MONO % 1.6 % (0.0-5.0); NEUTROPHILS % 93.9 % (36.0-66.0); PLATELET COUNT, AUTOMATED 487 k/mm3 (150-450); RED CELL DISTRIBUTION WIDTH 16.3 % (11.5-14.5)
[2016-11-08 06:29] LABS: CALCIUM LEVEL 8.9 MG/DL (8.8-10.2); CREATININE FOR GFR 1.89 MG/DL (0.55-1.02); GLOMERULAR FILTRATION RATE 27.4 (>39); MAGNESIUM LEVEL 2.2 MG/DL (1.8-2.4); POTASSIUM SERUM 4.5 MEQ/L (3.5-5.1)
[2016-11-08 06:59] LABS: ERYTHROCYTE SEDIMENTATION RATE 74 mm/hr (0-30)
[2016-11-08] MEDS: LACTOBACILLUS ACIDOPHILUS CAP (BACID) PO SCH ×3 (08:47→17:25)
[2016-11-08] MEDS: ASPIRIN 81 MG ENTERIC TAB PO SCH (08:47)
[2016-11-08] MEDS: MAGNESIUM GLUCONATE 500 MG TAB PO SCH ×2 (08:47→21:57)
[2016-11-08] MEDS: ROSUVASTATIN 10 MG TAB (CRESTOR) PO SCH (08:48)
[2016-11-08] MEDS: NYSTATIN 100,000 UNITS/GM TOPICAL PWD 15 GM TOP SCH ×2 (08:48→21:57)
[2016-11-08] MEDS: POTASSIUM CHLORIDE 10 MEQ SR TABLET PO SCH (08:48)
--- NOTE | 2016-11-08 08:55 | IPNPDOC ---
Assessment/Plan Date Seen The patient was seen on 11/08/16. Plan/VTE VTE Prophylaxis Ordered?: Yes Subjective Review oF Systems Chief Complaint The patient is a 76-year-old female admitted with a reason for visit of Weakness ; right ureter stone; LK stones; ARF; left pyuria s/p cystoscopy, bilateral RPG , JJ (11/07/16). IV Meropenem per ID for lower extremity cellulitis. Poor mobilization. Comfortable. 64, 19, 119/58, 97.3f. Abdo: Benign. Obese. Urine culture (11/07/16) pending. (11/08/16) Hg 12.1, wbc 17.0 (up), Cr 1.89 ( down). A: Above. P: IV Meropenem per ID. Review UC. CBC 1200 and daily for leukocytosis trend. Monitor for potential development of sepsis. DVT prophylaxis/mobilization encouraged. Objective Physical Examination Heart Exam: Positive: Rate Normal, Normal S1, Normal S2 Vital Signs/I&O Vital Signs Date Time Temp Pulse Resp B/P (MAP) Pulse Ox O2 Delivery O2 Flow Rate FiO2 11/08/16 06:00 97.3 64 19 119/58 (78) 95 Nasal Cannula 2.0 I&O- Last 24 Hours up to 6 AM 11/08/16 06:00 Intake Total 1470 ml Output Total 450 ml Balance 1020 ml Laboratory Data Labs 24H Laboratory Tests 2 11/08/16 05:41: White Blood Count 17.0H, Red Blood Count 4.45, Hemoglobin 12.1, Hematocrit 38.5 , Mean Corpuscular Volume 86.5, Mean Corpuscular Hemoglobin 27.2, Mean Corpuscular Hemoglobin Concent 31.5L, Red Cell Distribution Width 16.3H, Platelet Count 487H, Neutrophils (%) (Auto) 93.9H, Lymphocytes (%) (Auto) 3.7L, Monocytes (%) (Auto) 1.6, Eosinophils (%) (Auto) 0.0, Basophils (%) (Auto) 0.0, Neutrophils # (Auto) 16.0H, Lymphocytes # (Auto) 0.6L, Monocytes # (Auto) 0.3, Eosinophils # (Auto) 0.0, Basophils # (Auto) 0.0, Large Unclassified Cells % 0.8 , Large Unclassified Cells # 0.1, Erythrocyte Sedimentation Rate 74H, Anion Gap 8, Glomerular Filtration Rate 27.4L, Blood Urea Nitrogen 19H, Creatinine 1.89H, Sodium Level 139, Potassium Level 4.5, Chloride Level 109H, Carbon Dioxide Level 22, Calcium Level 8.9, Magnesium Level 2.2, C-Reactive Protein, Quantitative 5.81H CBC/BMP Laboratory Tests 11/08/16 05:41 Red Blood Count 4.45, Mean Corpuscular Volume 86.5, Mean Corpuscular Hemoglobin 27.2, Mean Corpuscular Hemoglobin Concent 31.5 L, Red Cell Distribution Width 16.3 H, Neutrophils (%) (Auto) 93.9 H, Lymphocytes (%) (Auto) 3.7 L, Monocytes ( %) (Auto) 1.6, Eosinophils (%) (Auto) 0.0, Basophils (%) (Auto) 0.0, Neutrophils # (Auto) 16.0 H, Lymphocytes # (Auto) 0.6 L, Monocytes # (Auto) 0.3 , Eosinophils # (Auto) 0.0, Basophils # (Auto) 0.0, Calcium Level 8.9 Microbiology Microbiology 11/02/16 Blood Culture - Final, Complete NO GROWTH AFTER 5 DAYS 11/02/16 Blood Culture - Final, Complete NO GROWTH AFTER 5 DAYS 11/07/16 Urine Culture, Received Pending 11/03/16 Urine Culture - Final, Complete 11/02/16 Gram Stain - Final, Complete 11/02/16 Wound Culture - Final, Complete Pseudomonas Aeruginosa DAILY AVENDANO MD Nov 08, 2016 08:55
[2016-11-08 11:57] LABS: THYROXINE (T4) 8.6 UG/DL (4.5-12.0)
[2016-11-08 12:24] LABS: LARGE UNSTAINED CELL # 0.1 K/mm3 (0.0-0.4); LARGE UNSTAINED CELL % 0.5 % (0.0-4.0); LYMPH # 0.8 K/mm3 (1.5-4.5); LYMPH % 6.4 % (24.0-44.0); MEAN CORPUSCULAR HEMOGLOBIN 27.8 pg (27.0-33.0); MEAN CORPUSCULAR HGB CONC 32.1 g/dl (32.0-36.5); MEAN CORPUSCULAR VOLUME 86.6 fl (80.0-96.0); MONO # 0.3 K/mm3 (0.0-0.8); MONO % 2.6 % (0.0-5.0); NEUTROPHILS # 11.1 K/mm3 (1.8-7.7); NEUTROPHILS % 90.5 % (36.0-66.0); PLATELET COUNT, AUTOMATED 478 k/mm3 (150-450); RED CELL DISTRIBUTION WIDTH 16.2 % (11.5-14.5); WHITE BLOOD COUNT 12.3 K/mm3 (4.0-10.0)
[2016-11-08] MEDS: MEROPENEM INJ 2 GM in NS 100 ML IV SCH ×2 (14:17→21:57)
--- NOTE | 2016-11-08 15:05 | RO ---
DATE OF PROCEDURE: 11/07/2016 PREPROCEDURE DIAGNOSIS: 1. Right distal ureteral calculus. 2. Left kidney calculi. 3. Acute renal failure. POSTPROCEDURE DIAGNOSIS: 1. Right distal ureteral calculus. 2. Left kidney calculi. 3. Acute renal failure. 4. Left pyuria. PROCEDURE: Cystoscopy, bilateral retrograde ureteropyelography, 6-Bolivian [place] Cook double J stent insertion (bilateral), fluoroscopy. SURGEON: Dr. Doug Rose BUILDING CONSTRUCTION SUPERINTENDENT: ANESTHESIA: General. COMPLICATIONS: None. ESTIMATED BLOOD LOSS: 0 mL. DESCRIPTION OF PROCEDURE: In lithotomy position, the patient was prepped and draped in the usual fashion. Plain fluoroscopy of the upper urinary tract confirmed the presence of mainly radio-opaque left renal pelvic and lower caliceal calculi. No obvious stone was noted on the right. A 21-Bolivian rigid cystoscope was advanced into the urinary bladder under direct vision. Urine specimen for culture and sensitivity was obtained. Pancystoscopy revealed normal ureteric orifices bilaterally and normal urothelium. There was no evidence of tumor, active bleeding or urolithiasis. Normal bladder neck and urethra were noted. A 5-Bolivian open-ended ureteral catheter was used to intubate the left ureteric orifice. Retrograde ureteropyelography confirmed a normal caliber ureter with a proximal ureter and renal pelvic filling defect, corresponding to the radio-opaque calculi. A 0.035 Sensor wire was then advanced up into the left renal pelvis under fluoroscopy. The 5-Bolivian open-ended ureteral catheter was removed and pyuria was noted to emanate from the left ureteric orifice. A 6-Bolivian [place] Cook double J stent was advanced under fluoroscopy and direct vision. Its position was confirmed. A 5-Bolivian open-ended ureteral catheter was then used to intubate the right ureteric orifice. Retrograde ureteropyelography confirmed a normal caliber ureter with mild hydronephrosis. No obvious filling defects were noted. A 0.035 Glidewire was advanced up into the right renal pelvis under fluoroscopy. The 5-Bolivian open-ended ureteral catheter was removed and a 6-Bolivian [place] Cook double J stent was advanced under fluoroscopy and direct vision. Its position was confirmed. Prior to removal of the instruments, the bladder was drained. At the conclusion of the procedure, sponge and instrument counts were correct. Estimated blood loss for the procedure was 0 mL. In the recovery room, the patient was alert and stable. DISPOSITION: Serial CBC and BMP determinations for potential sepsis development. Intravenous Zosyn to continue.
--- NOTE | 2016-11-08 15:05 | CR ---
DATE OF NEPHROLOGY CONSULTATION: 11/07/2016 This 75-year-old female was evaluated in consultation as requested by Dr. Iris Matthews on 11/07/2016 for: 1. Right ureter calculus. 2. Left kidney calculi. 3. Acute renal failure. She was admitted to the hospital (10/27/2016) with bilateral lower extremity lymphedema with venous stasis ulcers and cellulitis. Prior to presentation, she has a history of small volume urinary frequency. However, there is no history of gross hematuria, urinary tract infection, urolithiasis, flank pain or constitutional symptoms. PAST MEDICAL HISTORY: Significant for morbid obesity, hypertension, hypothyroidism, myocardial infarction times five, coronary artery stents times two, bilateral lower extremity lymphedema, bilateral lower extremity venous stasis ulcers with cellulitis, appendectomy, hysterectomy and lumbar laminectomy. REVIEW OF SYSTEMS: Negative for diabetes, pulmonary pathology, headaches, epilepsy, cerebrovascular accident (CVA), glaucoma, peptic ulcer disease, or bloodborne diseases. CURRENT MEDICATIONS: Include: - ciprofloxacin - aspirin - Synthroid - potassium chloride - nystatin - Zosyn ALLERGIES: She is allergic to LATEX, CLINDAMYCIN, SULFA MEDICATIONS, and PHENOBARBITAL. SOCIAL HISTORY: She is who has four children. She is a 50 year pack smoker who quit 10 years previously. She does not consume alcohol. FAMILY HISTORY: Significant for coronary artery disease and diabetes mellitus on the paternal side and diabetes mellitus on the maternal side. GENERAL EXAMINATION: Revealed a morbidly obese but comfortable individual. Her heart rate was 65, respiratory rate was 20, blood pressure was 123/59 and temperature was 98.6 degrees Fahrenheit. Palpation of the head and neck failed to reveal to reveal apparent lymphadenopathy. On auscultation chest is clear. Normal heart sounds. Examination of the back and abdomen were benign. Pfannenstiel and right lower quadrant scars were present, reflective of her prior surgeries. She is morbidly obese. Blood (11/02/2016) and urine (11/03/2016) cultures were negative for bacterial growth. Serum hematologic and biochemical indices determination (11/07/2016) demonstrated a hemoglobin of 11.5, leukocyte count of 8.4, and a creatinine of 2.28 (increased). Computed tomography of the abdomen and pelvis without intravenous contrast (11/07/2016) demonstrated a right 6 mm ureterovesical junction calculus with proximal hydroureteronephrosis and left renal calculi times two (2 cm each) with hydronephrosis. ASSESSMENT: 1. Right ureter calculus. 2. Left kidney calculi. 3. Acute renal failure. 4. Bilateral hydronephrosis. 5. Bilateral lower extremity venous stasis ulcers with cellulitis and lymphedema. 6. Hypertension. 7. Hypothyroidism. 8. Morbid obesity. 9. History of myocardial infarction with coronary artery stent times two. 10. Aspirin therapy. PLAN: The above findings were discussed with the patient and hospitalist. Following nothing by mouth (npo) status, cystoscopy, bilateral retrograde pyelography and double J stent insertion will be performed. Should this be unsuccessful, the patient and her family are aware that bilateral nephrostomy tube insertion by interventional radiology may be required. Should you require additional information, please do not hesitate to contact me. Thanking you for the confidence of your referral.
--- NOTE | 2016-11-08 15:07 | REP ---
RETROGRADE PYELOGRAM: HISTORY: Ureteral calculi. Six portable radiographs were obtained with the C-arm. Bilateral ureteral stents are present. A small amount of contrast material is present in the collecting systems and the ureters. Fluoroscopy time: 30 seconds. IMPRESSION: Retrograde pyelogram, as described above. Signed by Aly Delacruz MD 11/08/2016 09:01 A
--- NOTE | 2016-11-08 15:10 | IPN ---
DATE: 11/08/2016 SUBJECTIVE: The patient was seen and examined at the bedside today in the morning. The last 24 hours events were noted. The patient got the retrograde pyelogram, status post cystoscopy, bilateral JJ stent placement yesterday. She has been started on IV meropenem because of left sided pyuria. She is currently hemodynamically stable. Renal function is starting to improve now. Creatinine has dropped from 2.2 to 1.89 today. The patient is asymptomatic at this time, but she reports weakness and inability to walk. REVIEW OF SYSTEMS: The patient denies any fever, chills, rigors, headache, nausea, vomiting, chest pain, shortness of breath, pain in abdomen, constipation or diarrhea. She denies any dysuria. She does not have a catheter. She is able to urinate herself. The patient reports weakness and inability to walk and come out of the bed. The rest of the review of systems is negative. OBJECTIVE: VITAL SIGNS: Temperature 98.4 degrees Fahrenheit, blood pressure 107/52, pulse 65, respiratory rate 18, saturating 98% on nasal cannula. Intake and Output: Urine output recorded yesterday is 900 mL, urine output recorded so far today is 200 mL and there are 2 voids as well, so I think urine output is not recorded very well. Bed scale weight is not available. PHYSICAL EXAMINATION: GENERAL: The patient is awake, alert, oriented times three, morbidly obese, laying in bed, in no apparent distress. HEAD AND NECK: Extraocular muscles intact. Pupils equally round and reactive to light. Mucous membranes are moist. Neck is supple. There is no jugular venous distention. CARDIOVASCULAR: S1, S2 regular rate. No murmur, rub or gallop. RESPIRATORY: Chest is clear to auscultation bilaterally. Bilateral equal air entry. No rales or rhonchi. ABDOMEN: Soft. Obese. Nontender. No ascites. No organomegaly. EXTREMITIES: No clubbing or cyanosis. She has chronic venous stasis changes and trace edema of the bilateral lower extremities: CENTRAL NERVOUS SYSTEM: No focal neurological deficit. She follows all commands. 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 Hemoglobin is 12. Platelets are 478. BMP showed sodium 139, potassium 4.5, chloride 109, bicarbonate 25, BUN 19, creatinine 1.89 and it was 2.28 yesterday, calcium 8.9, magnesium 2.2. CURRENT MEDICATIONS: Patient's medications were all reviewed by me. IV fluids have been stopped. She is currently on meropenem 2 grams IV every 12 hours. There is no other change in the medications today as compared with yesterday. ASSESSMENT: 76-year-old female with acute renal failure superimposed on chronic kidney disease secondary to bilateral hydronephrosis and right sided hydroureter as well, status post bilateral JJ stent placement. PLAN: 1. Acute kidney injury secondary to bilateral hydronephrosis and right sided hydroureter. The patient got retrograde pyelogram yesterday. She got bilateral double JJ stent placement. Renal function is improving. Continue to monitor for improvement of the renal function. No need of IV fluid hydration at this time. The patient was encouraged oral fluid intake. 2. Sepsis and Left sided pyuria on cystoscopy and pyelogram. The patient just got the procedure done yesterday. She has been started on meropenem. White cell count is improving. Continue the antibiotics at this time. 3. Cellulitis of the bilateral lower extremities. The patient was initially on Zosyn which has been stopped. She is currently on meropenem. It should cover the bilateral lower extremity cellulitis as well, but clinically she is significantly improved. 4. Hypothyroidism. The patient's TSH is still 16.7 at this time. I recommend increasing the dose of levothyroxine. MTDD
[2016-11-08] MEDS: PERCOCET 5MG/325MG TAB PO PRN (19:43)
--- NOTE | 2016-11-08 21:33 | IPN ---
DATE: 11/08/2016 SUBJECTIVE: The patient is seen and examined in the room today. The patient was brought to the operating room (OR) for the stone removal right after one. The patient tolerated the procedure well. No complications. The patient stated she has improvement of her back pain after the stone removal. No overnight events are reported. OBJECTIVE: VITAL SIGNS: Temperature is 97.3, pulse is 64, respirations 19, blood pressure 119/58, pulse oximetry 95% with two liters nasal cannula. GENERAL: No sign of acute distress. Alert and oriented times three. HEENT: Normocephalic, atraumatic. Extraocular motor grossly intact. CARDIOVASCULAR: Positive S1, S2. Regular rate. LUNGS: Clear to auscultation bilaterally. ABDOMEN: Morbidly obese, soft, nontender, nondistended. Bowel sounds present. EXTREMITIES: 1-2 positive pitting edema bilaterally. Tender to palpation mostly at the site where she had some chronic venous stasis, multiple small sores at the bilateral lower extremities, most significant on the left esquivel. The area of erythema has improved compared to yesterday. No foul smelling. No active discharge noted from the lesion. LABORATORY DATA: WBC 12.3, hemoglobin 12, hematocrit 37.4, platelet count is 478. Sodium is 139, potassium 4.5, chloride 109, carbon dioxide 22, BUN 19, creatinine 1.89. GFR is 27.4. Fasting glucose 145. Calcium 8.9, magnesium 2.2. C-reactive protein is 5.81. ASSESSMENT AND PLAN: 1. Acute renal failure secondary to obstructing kidney stones. The patient had stone removal procedure, and patient tolerated the procedure well. No complications. The patient's renal function has started to improve. 2. Bilateral lower extremity cellulitis possibly from Pseudomonas. The patient was on Zosyn, was switched to meropenem. 3. Bilateral hydronephrosis secondary to obstructing bilateral nephroliths. The patient had a stone removal procedure by Dr. Rose. 4. Bilateral chronic venous stasis change. 5. Patient has hypothyroidism on Synthroid. 6. History of diarrhea, resolved. Adverse effect from the doxycycline. 7. Morbid obesity. 8. Pressure ulcer injury of the buttock. The patient has minimal activities even at baseline, creating wound healing challenge even as the patient has been sitting on the recliner most of the day. 9. Deep venous thrombosis (DVT) prophylaxis, on heparin.
[2016-11-08] MEDS ORDERED: MEROPENEM INJ 2 GM in NS 100 ML IV SCH (21:45)
[2016-11-09 02:00] VITALS: BP 132/62
[2016-11-09] MEDS: HEPARIN SOD (PORCINE) 5000 UNITS/ML VIAL SC SCH ×3 (05:50→23:58)
[2016-11-09] MEDS: LEVOTHYROXINE 0.15 MG TAB (150 MCG) PO SCH (05:50)
[2016-11-09 06:00] VITALS: BP 127/58
[2016-11-09 06:03] LABS: BASO % 0.3 % (0.0-1.0); EOS % 0.5 % (0.0-3.0); LARGE UNSTAINED CELL # 0.3 K/mm3 (0.0-0.4); LARGE UNSTAINED CELL % 4.8 % (0.0-4.0); LYMPH # 1.8 K/mm3 (1.5-4.5); MEAN CORPUSCULAR HEMOGLOBIN 26.6 pg (27.0-33.0); MEAN CORPUSCULAR HGB CONC 30.6 g/dl (32.0-36.5); MEAN CORPUSCULAR VOLUME 86.9 fl (80.0-96.0); MONO # 0.4 K/mm3 (0.0-0.8); MONO % 5.9 % (0.0-5.0); NEUTROPHILS # 4.4 K/mm3 (1.8-7.7); NEUTROPHILS % 66.5 % (36.0-66.0); PLATELET COUNT, AUTOMATED 488 k/mm3 (150-450); RED CELL DISTRIBUTION WIDTH 16.4 % (11.5-14.5); WHITE BLOOD COUNT 6.7 K/mm3 (4.0-10.0)
[2016-11-09 06:26] LABS: CALCIUM LEVEL 8.6 MG/DL (8.8-10.2); CREATININE FOR GFR 1.39 MG/DL (0.55-1.02); MAGNESIUM LEVEL 2.2 MG/DL (1.8-2.4); POTASSIUM SERUM 4.3 MEQ/L (3.5-5.1)
[2016-11-09 07:24] LABS: ERYTHROCYTE SEDIMENTATION RATE 61 mm/hr (0-30)
[2016-11-09] MEDS: POTASSIUM CHLORIDE 10 MEQ SR TABLET PO SCH (08:14)
[2016-11-09] MEDS: ROSUVASTATIN 10 MG TAB (CRESTOR) PO SCH (08:15)
[2016-11-09] MEDS: ASPIRIN 81 MG ENTERIC TAB PO SCH (08:16)
[2016-11-09] MEDS: LACTOBACILLUS ACIDOPHILUS CAP (BACID) PO SCH ×3 (08:16→17:35)
[2016-11-09] MEDS: MAGNESIUM GLUCONATE 500 MG TAB PO SCH ×2 (08:16→20:41)
[2016-11-09] MEDS: NYSTATIN 100,000 UNITS/GM TOPICAL PWD 15 GM TOP SCH ×2 (09:00→20:48)
[2016-11-09] MEDS ORDERED: MEROPENEM INJ 2 GM in NS 100 ML IV SCH (09:00)
--- NOTE | 2016-11-09 09:43 | IPNPDOC ---
Assessment/Plan Date Seen The patient was seen on 11/09/16. Plan/VTE VTE Prophylaxis Ordered?: Yes Subjective Review oF Systems Chief Complaint The patient is a 76-year-old female admitted with a reason for visit of Weakness ; right ureter stone; LK stones; ARF; left pyuria s/p cystoscopy, bilateral RPG , JJ (11/07/16). IV Meropenem per ID for lower extremity cellulitis. Poor mobilization continues. Comfortable. 60, 18, 127/58, 97.3f. Abdo: Benign. Obese. Urine culture (11/07/16) pending. (11/09/16) Hg 10.7, wbc 6.7, Cr 1.4 (down). A: Above. P: IV Meropenem per ID. Review UC. DVT prophylaxis/mobilization encouraged. Definitive stone treatment per Jonatan (Urology). Objective Physical Examination Heart Exam: Positive: Rate Normal, Normal S1, Normal S2 Vital Signs/I&O Vital Signs Date Time Temp Pulse Resp B/P (MAP) Pulse Ox O2 Delivery O2 Flow Rate FiO2 11/09/16 09:19 Nasal Cannula 2.0 11/09/16 06:00 97.3 60 18 127/58 (81) 99 I&O- Last 24 Hours up to 6 AM 11/09/16 06:00 Intake Total 800 ml Output Total 200 ml Balance 600 ml Laboratory Data Labs 24H Laboratory Tests 2 11/08/16 12:06: White Blood Count 12.3H, Red Blood Count 4.32, Hemoglobin 12.0, Hematocrit 37.4 , Mean Corpuscular Volume 86.6, Mean Corpuscular Hemoglobin 27.8, Mean Corpuscular Hemoglobin Concent 32.1, Red Cell Distribution Width 16.2H, Platelet Count 478H, Neutrophils (%) (Auto) 90.5H, Lymphocytes (%) (Auto) 6.4L, Monocytes (%) (Auto) 2.6, Eosinophils (%) (Auto) 0.0, Basophils (%) (Auto) 0.0, Neutrophils # (Auto) 11.1H, Lymphocytes # (Auto) 0.8L, Monocytes # (Auto) 0.3, Eosinophils # (Auto) 0.0, Basophils # (Auto) 0.0, Large Unclassified Cells % 0.5 , Large Unclassified Cells # 0.1 11/09/16 05:40: White Blood Count 6.7, Red Blood Count 4.02, Hemoglobin 10.7L, Hematocrit 34.9L , Mean Corpuscular Volume 86.9, Mean Corpuscular Hemoglobin 26.6L, Mean Corpuscular Hemoglobin Concent 30.6L, Red Cell Distribution Width 16.4H, Platelet Count 488H, Neutrophils (%) (Auto) 66.5H, Lymphocytes (%) (Auto) 22.0L , Monocytes (%) (Auto) 5.9H, Eosinophils (%) (Auto) 0.5, Basophils (%) (Auto) 0.3, Neutrophils # (Auto) 4.4, Lymphocytes # (Auto) 1.8, Monocytes # (Auto) 0.4 , Eosinophils # (Auto) 0.0, Basophils # (Auto) 0.0, Large Unclassified Cells % 4.8H, Large Unclassified Cells # 0.3, Erythrocyte Sedimentation Rate 61H, Anion Gap 6L, Glomerular Filtration Rate 39.0, Blood Urea Nitrogen 21H, Creatinine 1.39H, Sodium Level 141, Potassium Level 4.3, Chloride Level 111H, Carbon Dioxide Level 24, Calcium Level 8.6L, Magnesium Level 2.2, C-Reactive Protein, Quantitative 3.15H CBC/BMP Laboratory Tests 11/08/16 12:06 Red Blood Count 4.32, Mean Corpuscular Volume 86.6, Mean Corpuscular Hemoglobin 27.8, Mean Corpuscular Hemoglobin Concent 32.1, Red Cell Distribution Width 16.2 H, Neutrophils (%) (Auto) 90.5 H, Lymphocytes (%) (Auto) 6.4 L, Monocytes ( %) (Auto) 2.6, Eosinophils (%) (Auto) 0.0, Basophils (%) (Auto) 0.0, Neutrophils # (Auto) 11.1 H, Lymphocytes # (Auto) 0.8 L, Monocytes # (Auto) 0.3 , Eosinophils # (Auto) 0.0, Basophils # (Auto) 0.0 11/09/16 05:40 Red Blood Count 4.02, Mean Corpuscular Volume 86.9, Mean Corpuscular Hemoglobin 26.6 L, Mean Corpuscular Hemoglobin Concent 30.6 L, Red Cell Distribution Width 16.4 H, Neutrophils (%) (Auto) 66.5 H, Lymphocytes (%) (Auto) 22.0 L, Monocytes (%) (Auto) 5.9 H, Eosinophils (%) (Auto) 0.5, Basophils (%) (Auto) 0.3, Neutrophils # (Auto) 4.4, Lymphocytes # (Auto) 1.8, Monocytes # (Auto) 0.4, Eosinophils # (Auto) 0.0, Basophils # (Auto) 0.0, Calcium Level 8.6 L Microbiology Microbiology 11/02/16 Blood Culture - Final, Complete NO GROWTH AFTER 5 DAYS 11/02/16 Blood Culture - Final, Complete NO GROWTH AFTER 5 DAYS 11/08/16 Gastrointestinal Tract Panel (PCR) - Final, Complete 11/07/16 Urine Culture, Received Pending 11/03/16 Urine Culture - Final, Complete 11/02/16 Gram Stain - Final, Complete 11/02/16 Wound Culture - Final, Complete Pseudomonas Aeruginosa DAILY AVENDANO MD Nov 09, 2016 09:43
[2016-11-09 10:44] VITALS: BP 125/60
--- NOTE | 2016-11-09 11:06 | IPNPDOC ---
Subjective Date Seen The patient was seen on 11/09/16. Subjective Chief Complaint/HPI The patient is a 76-year-old female admitted with a reason for visit of Weakness. General: Denies: Chills, Night Sweats Constitutional: Denies: Chills, Fever Eyes: Denies: Pain, Vision change ENT: Denies: Head Aches, Ear Pain Skin: Denies: Rash, Lesions Pulmonary: Denies: Dyspnea, Cough Cardiovascular: Denies: Chest Pain, Palpitations Gastrointestinal: Denies: Nausea, Vomiting Genitourinary: Denies: Dysuria Hematologic: Denies: Bruising, Bleeding Excessively Objective Physical Examination General Exam: Positive: Alert, Cooperative, No Acute Distress ENT Exam: Positive: Atraumatic, Mucous membr. moist/pink Neck Exam: Negative: JVD Chest Exam: Positive: Clear to auscultation, Normal air movement Heart Exam: Positive: Rate Normal, Normal S1, Normal S2 Abdomen Exam: Positive: Soft, Negative: Tenderness Extremity Exam: Positive: Other (changes consistent with chronic venous stasis noted in the lower joints bilaterally, erythema and tenderness much improved since admission) Psych Exam: Positive: Oriented x 3 Assessment /Plan Plan/VTE VTE Prophylaxis Ordered?: Yes Plan Acute Renal Failure 2/2 Obstructive uropathy from Renal and Ureteral Calculi Bilaterally. Status post cystoscopy, retrograde pyelogram, and bilateral double-J stent placement on 11/07/16 by urology The patient's renal function continues to improve today Nephrology on board-appreciate their input Left-sided pyuria on cystoscopy, pyelogram Urine cultures pending On meropenem for now Bilateral lower extremity cellulitis possibly from Pseudomonas Status post trial of Zosyn Patient's cellulitis markedly improved She is receiving meropenem now, however this is for left-sided pyuria as noted above Bilateral chronic venous stasis changes Hypothyroidism Continue Synthroid. History of diarrhea GI panel negative Continue Imodium when necessary Morbid obesity. Complicating medical care Pressure ulcer injury of the buttock Likely secondary to sedentary baseline Deep venous thrombosis (DVT) prophylaxis On heparin. Disposition-Will follow-up with patient's clinical status, PT recommendations for further disposition. VS, I&O, 24H, Fishbone Vital Signs/I&O Vital Signs Date Time Temp Pulse Resp B/P (MAP) Pulse Ox O2 Delivery O2 Flow Rate FiO2 11/09/16 10:44 97.3 77 17 125/60 (81) 98 Nasal Cannula 2.0 I&O- Last 24 Hours up to 6 AM 11/09/16 06:00 Intake Total 800 ml Output Total 200 ml Balance 600 ml Laboratory Data 24H LABS Laboratory Tests 2 11/08/16 12:06: White Blood Count 12.3H, Red Blood Count 4.32, Hemoglobin 12.0, Hematocrit 37.4 , Mean Corpuscular Volume 86.6, Mean Corpuscular Hemoglobin 27.8, Mean Corpuscular Hemoglobin Concent 32.1, Red Cell Distribution Width 16.2H, Platelet Count 478H, Neutrophils (%) (Auto) 90.5H, Lymphocytes (%) (Auto) 6.4L, Monocytes (%) (Auto) 2.6, Eosinophils (%) (Auto) 0.0, Basophils (%) (Auto) 0.0, Neutrophils # (Auto) 11.1H, Lymphocytes # (Auto) 0.8L, Monocytes # (Auto) 0.3, Eosinophils # (Auto) 0.0, Basophils # (Auto) 0.0, Large Unclassified Cells % 0.5 , Large Unclassified Cells # 0.1 11/09/16 05:40: White Blood Count 6.7, Red Blood Count 4.02, Hemoglobin 10.7L, Hematocrit 34.9L , Mean Corpuscular Volume 86.9, Mean Corpuscular Hemoglobin 26.6L, Mean Corpuscular Hemoglobin Concent 30.6L, Red Cell Distribution Width 16.4H, Platelet Count 488H, Neutrophils (%) (Auto) 66.5H, Lymphocytes (%) (Auto) 22.0L , Monocytes (%) (Auto) 5.9H, Eosinophils (%) (Auto) 0.5, Basophils (%) (Auto) 0.3, Neutrophils # (Auto) 4.4, Lymphocytes # (Auto) 1.8, Monocytes # (Auto) 0.4 , Eosinophils # (Auto) 0.0, Basophils # (Auto) 0.0, Large Unclassified Cells % 4.8H, Large Unclassified Cells # 0.3, Erythrocyte Sedimentation Rate 61H, Anion Gap 6L, Glomerular Filtration Rate 39.0, Blood Urea Nitrogen 21H, Creatinine 1.39H, Sodium Level 141, Potassium Level 4.3, Chloride Level 111H, Carbon Dioxide Level 24, Calcium Level 8.6L, Magnesium Level 2.2, C-Reactive Protein, Quantitative 3.15H CBC/BMP Laboratory Tests 11/08/16 12:06 Red Blood Count 4.32, Mean Corpuscular Volume 86.6, Mean Corpuscular Hemoglobin 27.8, Mean Corpuscular Hemoglobin Concent 32.1, Red Cell Distribution Width 16.2 H, Neutrophils (%) (Auto) 90.5 H, Lymphocytes (%) (Auto) 6.4 L, Monocytes ( %) (Auto) 2.6, Eosinophils (%) (Auto) 0.0, Basophils (%) (Auto) 0.0, Neutrophils # (Auto) 11.1 H, Lymphocytes # (Auto) 0.8 L, Monocytes # (Auto) 0.3 , Eosinophils # (Auto) 0.0, Basophils # (Auto) 0.0 11/09/16 05:40 Red Blood Count 4.02, Mean Corpuscular Volume 86.9, Mean Corpuscular Hemoglobin 26.6 L, Mean Corpuscular Hemoglobin Concent 30.6 L, Red Cell Distribution Width 16.4 H, Neutrophils (%) (Auto) 66.5 H, Lymphocytes (%) (Auto) 22.0 L, Monocytes (%) (Auto) 5.9 H, Eosinophils (%) (Auto) 0.5, Basophils (%) (Auto) 0.3, Neutrophils # (Auto) 4.4, Lymphocytes # (Auto) 1.8, Monocytes # (Auto) 0.4, Eosinophils # (Auto) 0.0, Basophils # (Auto) 0.0, Calcium Level 8.6 L Microbiology Microbiology 11/02/16 Blood Culture - Final, Complete NO GROWTH AFTER 5 DAYS 11/02/16 Blood Culture - Final, Complete NO GROWTH AFTER 5 DAYS 11/08/16 Gastrointestinal Tract Panel (PCR) - Final, Complete 11/07/16 Urine Culture, Received Pending 11/03/16 Urine Culture - Final, Complete 11/02/16 Gram Stain - Final, Complete 11/02/16 Wound Culture - Final, Complete Pseudomonas Aeruginosa ЕКАТЕРИНА GARCIA MD Nov 09, 2016 11:06
[2016-11-09] MEDS: LOPERAMIDE 2 MG CAP PO PRN (11:49)
[2016-11-09 14:00] VITALS: BP 113/53
[2016-11-09] MEDS: MORPHINE 2 MG/ML 1ML SYRINGE IV PRN ×2 (14:51→20:42)
[2016-11-09 18:00] VITALS: BP 109/51
[2016-11-09] MEDS: MEROPENEM INJ 1 GM in D5W MINI-BAG PLUS 100 ML IV SCH (20:40)
[2016-11-09 22:00] VITALS: BP 119/58
--- NOTE | 2016-11-09 22:16 | IPN ---
DATE: 11/09/2016 SUBJECTIVE: Patient was seen and examined at the bedside today in the morning. Her renal function continues to improve. Her infection and white cell count is also improving. She is hemodynamically stable. She denies any active complaints now. REVIEW OF SYSTEMS: Patient denies any fever, chills, rigors, headache, nausea, vomiting, chest pain, shortness of breath, pain in abdomen, constipation, or diarrhea. She still reports weakness and inability to walk around. Rest of review of systems is negative. OBJECTIVE: VITAL SIGNS: Temperature 97.3 degrees Fahrenheit, blood pressure 125/60, pulse 77, respiratory rate of 17, saturating at 98% on nasal cannula at 2 liters per minute. Intake and output: Urine output is not recorded well, she had five voids yesterday, one void so far today since overnight. Bed scale weight is not available. PHYSICAL EXAMINATION: GENERAL: Patient is awake, alert, oriented times three, morbidly obese, laying in bed, no apparent distress. HEAD and NECK EXAM: Extraocular muscles intact. Pupils equally round and reactive to light. Mucous membranes are moist. Neck is supple, there is no jugular venous distention (JVD). CARDIOVASCULAR: S1, S2, regular rate. No murmur, rub, or gallop. RESPIRATORY: Chest is clear to auscultation bilaterally, bilateral equal air entry. No rales or rhonchi. ABDOMEN: Soft, obese, nontender. No ascites. No organomegaly. EXTREMITIES: No clubbing or cyanosis. She has chronic venous stasis changes of the bilateral lower extremities and trace edema of the bilateral lower extremities as well. CENTRAL NERVOUS SYSTEM (FINISH MENDER): No focal neurological deficit. Power is 5/5 in all extremities. LABORATORY REVIEW: CBC showed a WBC 6.7, hemoglobin 10.7, platelets 488. BMP showed sodium 141, potassium 4.3, chloride 111, bicarbonate 24, BUN 21, creatinine 1.39, it was 1.89 yesterday, calcium 8.6, C-reactive protein 3.15 and is coming down. Microbiology: A gastrointestinal (GI) panel was done yesterday, it was negative for any infectious etiology. CURRENT MEDICATIONS: Patient's medications were all reviewed by me. Her meropenem dose has been changed to 1 gram IV every 12 hours. There is no other change in the medications today. ASSESSMENT: 76-year-old female with past medical history of morbid obesity, admitted at this time with acute renal failure superimposed on chronic kidney disease secondary to bilateral hydronephrosis and right-sided hydroureter status post bilateral double-J stent placement. PLAN: 1. Acute kidney injury, secondary to bilateral hydronephrosis and right-sided hydroureter. Patient got retrograde pyelogram status post double-J stent placement. Renal function is improving. Urine output is improving as well. 2. Left-sided pyuria and sepsis. Patient's white cell count has improved to 6.7. She continues to be on IV meropenem. She is hemodynamically stable. Continue the antibiotics. Duration of antibiotics is as per primary team. 3. Hypothyroidism. Patient's thyroid stimulating hormone (TSH) is still very high. I recommend increasing the levothyroxine dose. Rest of the management is as per primary team. 4. Disposition: Patient's kidney function and sepsis is improving. Her creatinine has improved to 1.3 today. Electrolytes are within the acceptable limit. Nephrology service will sign off at this moment. Please call nephrology as needed for any help in the management of this patient in the future.
[2016-11-10] VITALS (7 sets, daily range): BP systolic 100–134; BP diastolic 51–60
[2016-11-10] MEDS: PERCOCET 5MG/325MG TAB PO PRN ×2 (00:03→21:00)
[2016-11-10] MEDS: MORPHINE 2 MG/ML 1ML SYRINGE IV PRN (04:12)
[2016-11-10] MEDS: HEPARIN SOD (PORCINE) 5000 UNITS/ML VIAL SC SCH ×3 (06:55→21:01)
[2016-11-10] MEDS: LEVOTHYROXINE 0.15 MG TAB (150 MCG) PO SCH (06:55)
[2016-11-10 09:01] LABS: MEAN CORPUSCULAR HEMOGLOBIN 27.9 pg (27.0-33.0); MEAN CORPUSCULAR HGB CONC 32.3 g/dl (32.0-36.5); MEAN CORPUSCULAR VOLUME 86.5 fl (80.0-96.0); RED CELL DISTRIBUTION WIDTH 16.8 % (11.5-14.5); WHITE BLOOD COUNT 6.1 K/mm3 (4.0-10.0)
[2016-11-10 09:20] LABS: CALCIUM LEVEL 8.8 MG/DL (8.8-10.2); CREATININE FOR GFR 1.03 MG/DL (0.55-1.02); GLOMERULAR FILTRATION RATE 55.2 (>39); POTASSIUM SERUM 4.7 MEQ/L (3.5-5.1)
[2016-11-10] MEDS: MEROPENEM INJ 1 GM in D5W MINI-BAG PLUS 100 ML IV SCH ×2 (09:30→21:01)
[2016-11-10] MEDS: ROSUVASTATIN 10 MG TAB (CRESTOR) PO SCH (09:31)
[2016-11-10] MEDS: LACTOBACILLUS ACIDOPHILUS CAP (BACID) PO SCH ×3 (09:31→17:39)
[2016-11-10] MEDS: MAGNESIUM GLUCONATE 500 MG TAB PO SCH ×2 (09:32→21:00)
[2016-11-10] MEDS: NYSTATIN 100,000 UNITS/GM TOPICAL PWD 15 GM TOP SCH ×2 (09:32→21:01)
[2016-11-10] MEDS: POTASSIUM CHLORIDE 10 MEQ SR TABLET PO SCH (09:32)
[2016-11-10] MEDS: ASPIRIN 81 MG ENTERIC TAB PO SCH (09:32)
--- NOTE | 2016-11-10 13:58 | IPNPDOC ---
Subjective Date Seen The patient was seen on 11/10/16. Subjective Chief Complaint/HPI The patient is a 76-year-old female admitted with a reason for visit of Weakness. General: Denies: Chills, Night Sweats Constitutional: Denies: Chills, Fever Eyes: Denies: Pain, Vision change ENT: Denies: Head Aches, Ear Pain Skin: Denies: Rash, Lesions Pulmonary: Denies: Dyspnea, Cough Cardiovascular: Denies: Chest Pain, Palpitations Gastrointestinal: Denies: Nausea, Vomiting Genitourinary: Denies: Dysuria, Frequency Hematologic: Denies: Bruising, Bleeding Excessively Musculoskeletal: Denies: Neck Pain, Back Pain Objective Physical Examination General Exam: Positive: Alert, Cooperative, No Acute Distress ENT Exam: Positive: Atraumatic, Mucous membr. moist/pink Neck Exam: Negative: JVD Chest Exam: Positive: Clear to auscultation, Normal air movement Heart Exam: Positive: Rate Normal, Normal S1, Normal S2 Abdomen Exam: Positive: Soft, Negative: Tenderness Extremity Exam: Positive: Other (changes consistent with chronic venous stasis noted in the lower joints bilaterally, erythema and tenderness much improved since admission) Psych Exam: Positive: Oriented x 3 Assessment /Plan Plan/VTE VTE Prophylaxis Ordered?: Yes Plan Acute Renal Failure 2/2 Obstructive uropathy from Renal and Ureteral Calculi Bilaterally. Status post cystoscopy, retrograde pyelogram, and bilateral double-J stent placement on 11/07/16 by urology The patient's renal function back to baseline Nephrology on board-appreciate their input Left-sided pyuria on cystoscopy, pyelogram Continue meropenem Bilateral lower extremity cellulitis possibly from Pseudomonas Status post trial of Zosyn Patient's cellulitis markedly improved She is receiving meropenem now, however this is for left-sided pyuria as noted above Bilateral chronic venous stasis changes Hypothyroidism Continue Synthroid. History of diarrhea GI panel negative Continue Imodium when necessary Morbid obesity. Complicating medical care Pressure ulcer injury of the buttock Likely secondary to sedentary baseline Deep venous thrombosis (DVT) prophylaxis On heparin. Disposition-Will follow-up with patient's clinical status, PT recommendations for further disposition. VS, I&O, 24H, Fishbone Vital Signs/I&O Vital Signs Date Time Temp Pulse Resp B/P (MAP) Pulse Ox O2 Delivery O2 Flow Rate FiO2 11/10/16 12:47 98.0 69 17 109/51 (70) 98 Nasal Cannula 1.0 I&O- Last 24 Hours up to 6 AM 11/10/16 05:59 Intake Total 940 ml Output Total 1600 ml Balance -660 ml Laboratory Data 24H LABS Laboratory Tests 2 11/10/16 08:42: Anion Gap 5L, Glomerular Filtration Rate 55.2, Blood Urea Nitrogen 17, Creatinine 1.03H, Sodium Level 141, Potassium Level 4.7, Chloride Level 110H, Carbon Dioxide Level 26, Calcium Level 8.8 CBC/BMP Laboratory Tests 11/10/16 08:42 Red Blood Count 3.90 L, Mean Corpuscular Volume 86.5, Mean Corpuscular Hemoglobin 27.9, Mean Corpuscular Hemoglobin Concent 32.3, Red Cell Distribution Width 16.8 H, Calcium Level 8.8 Microbiology Microbiology 11/02/16 Blood Culture - Final, Complete NO GROWTH AFTER 5 DAYS 11/02/16 Blood Culture - Final, Complete NO GROWTH AFTER 5 DAYS 11/08/16 Gastrointestinal Tract Panel (PCR) - Final, Complete 11/07/16 Urine Culture - Final, Complete 11/03/16 Urine Culture - Final, Complete 11/02/16 Gram Stain - Final, Complete 11/02/16 Wound Culture - Final, Complete Pseudomonas Aeruginosa ЕКАТЕРИНА GARCIA MD November 10, 2016 13:58
[2016-11-10] MEDS: LOPERAMIDE 2 MG CAP PO PRN ×2 (14:44→18:49)
[2016-11-10] MEDS ORDERED: CIPR500T3 PO (15:39)
[2016-11-11 06:00] VITALS: BP 114/57
[2016-11-11] MEDS: HEPARIN SOD (PORCINE) 5000 UNITS/ML VIAL SC SCH (06:23)
[2016-11-11] MEDS: LACTOBACILLUS ACIDOPHILUS CAP (BACID) PO SCH (06:23)
[2016-11-11] MEDS: LEVOTHYROXINE 0.15 MG TAB (150 MCG) PO SCH (06:23)
[2016-11-11 06:52] LABS: MEAN CORPUSCULAR HEMOGLOBIN 27.7 pg (27.0-33.0); MEAN CORPUSCULAR HGB CONC 30.8 g/dl (32.0-36.5); MEAN CORPUSCULAR VOLUME 89.8 fl (80.0-96.0); RED CELL DISTRIBUTION WIDTH 16.6 % (11.5-14.5)
[2016-11-11 07:12] LABS: ANION GAP 7 MEQ/L (8-16); BLOOD UREA NITROGEN 15 MG/DL (7-18); CALCIUM LEVEL 9.3 MG/DL (8.8-10.2); CARBON DIOXIDE LEVEL 24 MEQ/L (21-32); CHLORIDE LEVEL 107 MEQ/L (98-107); CREATININE FOR GFR 0.89 MG/DL (0.55-1.02); GLOMERULAR FILTRATION RATE > 60.0 (>39); GLUCOSE, FASTING 94 MG/DL (83-110); POTASSIUM SERUM 4.3 MEQ/L (3.5-5.1); SODIUM LEVEL 138 MEQ/L (136-145)
[2016-11-11] MEDS: MAGNESIUM GLUCONATE 500 MG TAB PO SCH (09:09)
[2016-11-11] MEDS: NYSTATIN 100,000 UNITS/GM TOPICAL PWD 15 GM TOP SCH (09:09)
[2016-11-11] MEDS: ROSUVASTATIN 10 MG TAB (CRESTOR) PO SCH (09:09)
[2016-11-11] MEDS: ASPIRIN 81 MG ENTERIC TAB PO SCH (09:09)
[2016-11-11] MEDS: POTASSIUM CHLORIDE 10 MEQ SR TABLET PO SCH (09:09)
[2016-11-11] MEDS: MEROPENEM INJ 1 GM in D5W MINI-BAG PLUS 100 ML IV SCH (09:58)
--- NOTE | 2016-11-11 13:15 | DS.PDOC ---
Discharge Summary General Date of Admission Nov 02, 2016 at 21:39 Date of Discharge 11/11/16 Specialist/Consultants Involve Dr. Mackay of Nephrology, Dr. Rose of urology Discharge Summary PROCEDURES PERFORMED DURING STAY: cystoscopy, retrograde pyelogram, and bilateral double-J stent placement on 11/07/16 by urology. ADMITTING DIAGNOSES: 1. .Bilateral Hydronephrosis 2. .Acute Kidney Injury superimposed on Chronic Kidney Disease 3. .COPD Exacerbation DISCHARGE DIAGNOSES: 1. .Bilateral Hydronephrosis 2. .Acute Kidney Injury superimposed on Chronic Kidney Disease 3. .COPD Exacerbation COMPLICATIONS/CHIEF COMPLAINT: Weakness. HISTORY OF PRESENT ILLNESS: . 76-year-old female with past medical history of hypertension, hypothyroidism, bilateral venous stasis and chronic lymphedema with leg ulcerations, history of MRSA, recurrent cellulitis, and dyslipidemia presented to the ER with a chief complaint of worsening cellulitis of the lower extremities bilaterally. The patient states that she was seen in the ER on 10/28/16 for the same and she was discharged home on doxycycline. Since that time, the patient notes that the swelling and redness in her lower extremities had not gotten any better. She returned to the ER for further evaluation and management. During this time, the patient denied any episodes of fevers, chills, shortness of breath, chest pain, palpitations, abdominal pain, or any nausea/vomiting. The patient was admitted under the hospitalist service and treated with IV Zosyn for cellulitis. The patient's blood cultures were noted to be negative and her cellulitis significantly improved with IV antibiotic therapy. However, the patient's medical course was complicated by worsening kidney function. A CT scan of the abdomen was ordered on 11/07/16 and this revealed bilateral nephroliths causing bilateral hydronephrosis and right-sided hydroureter secondary to a right-sided ureterolith. Nephrology and Urology was consulted and the patient subsequently had a cystoscopy, retrograde pyelogram, and bilateral double-J stent placement on 11/07/16 by urology. Subsequently the patient's any function improved back to within normal limits. The patient was treated for pyuria with meropenem which has been transitioned to ciprofloxacin. The patient subsequently been advised to follow-up with urology as an outpatient for definitive treatment of stones. DISCHARGE MEDICATIONS: Please see below. ALLERGIES: Please see below. PHYSICAL EXAMINATION ON DISCHARGE: VITAL SIGNS: Please see below. General Exam: Positive: Alert, Cooperative, No Acute Distress ENT Exam: Positive: Atraumatic, Mucous membr. moist/pink Neck Exam: Negative: JVD Chest Exam: Positive: Clear to auscultation, Normal air movement Heart Exam: Positive: Rate Normal, Normal S1, Normal S2 Abdomen Exam: Positive: Soft, Negative: Tenderness Extremity Exam: Positive: Other (changes consistent with chronic venous stasis noted in the lower joints bilaterally, erythema and tenderness much improved since admission) Psych Exam: Positive: Oriented x 3 LABORATORY DATA: Please see below. IMAGING: REASON: History of nephrolithiasis and hydronephrosis. COMPARISON: Multiple latest 02/15/2016 which showed an obstructing 5 mm size calculus in the left ureterovesical junction resulting in hydronephrosis. Numerable bilateral nephroliths were noted. Cholelithiasis was also noted along with a small umbilical hernia. The lung bases show small to moderate bilateral pleural effusions with patchy bibasilar opacities particularly left lung base with some air bronchograms. Limited evaluation of the solid intra-abdominal organs show no gross abnormalities or significant changes from the prior exam. Note is again made of cholelithiasis. Limited evaluation of the pancreas and adrenal glands show no gross abnormalities or significant changes from the prior exam. Once again, there is bilateral nephrolithiasis. In the left renal collecting system, there is a large calculus having the appearance of a developing staghorn calculus. This calculus is seen not only in multiple calices but in the left renal pelvis extending into the proximal left ureter. There is resulting moderate left sided hydronephrosis. There are numerable right renal calculi which are not causing obstructive phenomena. In the distal right ureter, there is a 6 mm sized calculus which is causing mild right sided hydronephrosis and hydroureter proximal to the inciting factor. There are no urinary bladder calcifications. There is an unchanged ventral hernia. There is no free fluid or free air in the abdomen or pelvis. The intra-abdominal and intrapelvic bowel loops are essentially unchanged. Bone window technique throughout the exam shows the osseous structures to be stable and intact. Limited evaluation of the abdominal aorta and para-aortic regions show no gross abnormalities or significant changes from the prior exam. There is stable appearing calcific atherosclerotic change. IMPRESSION: 1. Bilateral nephroliths and causing bilateral hydronephrosis and right sided hydroureter secondary to a right sided ureterolith as described above. 2. There is known cholelithiasis and there is a known ventral hernia as described above. 3. Other findings as described above. PROGNOSIS: Medically stable ACTIVITY: As tolerated. DIET: . 2 g low sodium diet DISCHARGE PLAN: DISPOSITION: Home, Self-Care. DISCHARGE INSTRUCTIONS: 1. . Follow-up with primary care physician within one to 2 weeks 2. . Follow-up with urology in 1-2 weeks for further definitive treatment of stones DISCHARGE CONDITION: Stable. TIME SPENT ON DISCHARGE: Greater than 30 minutes. Vital Signs/I&Os Vital Signs Date Time Temp Pulse Resp B/P (MAP) Pulse Ox O2 Delivery O2 Flow Rate FiO2 11/11/16 09:10 Nasal Cannula 2.0 11/11/16 06:00 97.8 65 18 114/57 (76) 100 I&O- Last 24 Hours up to 6 AM 11/11/16 06:00 Intake Total 1540 ml Output Total 2300 ml Balance -760 ml Laboratory Data Labs 24H Laboratory Tests 2 11/11/16 06:44: Anion Gap 7L, Glomerular Filtration Rate > 60.0, Blood Urea Nitrogen 15, Creatinine 0.89, Sodium Level 138, Potassium Level 4.3, Chloride Level 107, Carbon Dioxide Level 24, Calcium Level 9.3 CBC/BMP Laboratory Tests 11/11/16 06:44 Red Blood Count 4.40, Mean Corpuscular Volume 89.8, Mean Corpuscular Hemoglobin 27.7, Mean Corpuscular Hemoglobin Concent 30.8 L, Red Cell Distribution Width 16.6 H, Calcium Level 9.3 Microbiology Microbiology 11/02/16 Blood Culture - Final, Complete NO GROWTH AFTER 5 DAYS 11/02/16 Blood Culture - Final, Complete NO GROWTH AFTER 5 DAYS 11/08/16 Gastrointestinal Tract Panel (PCR) - Final, Complete 11/07/16 Urine Culture - Final, Complete 11/03/16 Urine Culture - Final, Complete 11/02/16 Gram Stain - Final, Complete 11/02/16 Wound Culture - Final, Complete Pseudomonas Aeruginosa Discharge Medications Scheduled (Leg Cramp Relief) 1 Tab Tab, 1 TAB PO QHS, (Reported) Aspirin (Aspirin 81) 81 Mg Tab, 81 MG PO DAILY, (Reported) Ciprofloxacin HCl (Ciprofloxacin HCl) 500 Mg Tab, 500 MG PO BID Ergocalciferol (Vitamin D) 50,000 Unit Cap, 50,000 UNIT PO Q2WK, (Reported) EVERY OTHER THURSDAY Ibandronate Sodium (Ibandronate Sodium) 150 Mg Tab, 150 MG PO QMONTH, (Reported) 1ST OF THE MONTH Lactobacillus Acidophilus (Bacid) 1 Tab Tab, 1 TAB PO DAILY, (Reported) Levothyroxine Sodium (Synthroid) 150 Mcg Tab, 150 MCG PO DAILY, (Reported) Magnesium Gluconate (Magnesium Gluconate) 500 Mg Tab, 500 MG PO BID, (Reported) Potassium Chloride (Potassium Chloride ER) 10 Meq Tab, 10 MEQ PO DAILY, ( Reported) Rosuvastatin Calcium (Crestor) 40 Mg Tab, 40 MG PO DAILY, (Reported) Scheduled PRN Hydroxyzine HCl (Hydroxyzine HCl) 10 Mg Tab, 10 MG PO QID PRN for ITCHING, ( Reported) Ondansetron (Ondansetron Odt) 4 Mg Tab, 4 MG PO TID PRN for NAUSEA, (Reported) Oxycodone/Acetaminophen (Percocet 5-325 mg) 1 Tab Tab, 1 TAB PO Q12HP PRN for PAIN, (Reported) Zinc Oxide (Zinc Oxide 20% Oint) 1 Dose/60 Gm Oint, 1 DOSE TOP TID PRN for REDNESS/IRRITATION, (Reported) APPLIES TO LEGS Allergies Coded Allergies: Phenobarbital (Verified Allergy, Intermediate, HIVES, 10/14/12) Sulfa Drugs (Verified Allergy, Intermediate, HIVES, 03/06/13) Latex (Verified Allergy, Unknown, 10/14/12) Pineapple (Verified Allergy, Unknown, 10/14/12) TAPE (Verified Allergy, Unknown, 12/25/04) Clindamycin (Unverified Adverse Reaction, Intermediate, VOMITING, 11/02/16) ЕКАТЕРИНА GARCIA MD November 11, 2016 13:15
== END 2016-11-11 10:33 | disposition home or self-care (01) | DRG 603 ==
LOC: EDBD 17:10 → M ED 18:25 → M ED INP 21:39 → M MSPAV 11-03 00:48
PROVIDERS: ADMIT Internal Medicine; ATTEND Internal Medicine
PROC: 0T788DZ Dilation of Bilateral Ureters with Intraluminal Device, Via Natural or Artificial Opening Endoscopic (ICD-10-PCS; principal; 2016-11-07 22:26)
DX: L03.115 Cellulitis of right lower limb (principal); Z68.43 Body mass index [BMI] 50.0-59.9, adult; N13.2 Hydronephrosis with renal and ureteral calculous obstruction; N39.0 Urinary tract infection, site not specified; N17.9 Acute kidney failure, unspecified; J44.1 Chronic obstructive pulmonary disease with (acute) exacerbation; E66.01 Morbid (severe) obesity due to excess calories; L03.116 Cellulitis of left lower limb; I87.8 Other specified disorders of veins; I89.0 Lymphedema, not elsewhere classified; L89.322 Pressure ulcer of left buttock, stage 2; N18.9 Chronic kidney disease, unspecified; E03.9 Hypothyroidism, unspecified; I12.9 Hypertensive chronic kidney disease with stage 1 through stage 4 chronic kidney disease, or unspecified chronic kidney disease; E78.5 Hyperlipidemia, unspecified; K80.20 Calculus of gallbladder without cholecystitis without obstruction; K42.9 Umbilical hernia without obstruction or gangrene; Z79.899 Other long term (current) drug therapy; Z79.82 Long term (current) use of aspirin; Z88.2 Allergy status to sulfonamides; Z88.8 Allergy status to other drugs, medicaments and biological substances; Z91.018 Allergy to other foods; Z88.1 Allergy status to other antibiotic agents; Z87.891 Personal history of nicotine dependence; R19.7 Diarrhea, unspecified; I50.9 Heart failure, unspecified; D64.9 Anemia, unspecified; I25.2 Old myocardial infarction

== ENCOUNTER → 2016-11-20 | Outpatient (REF) | payer MEDICARE ==
[~2016-11-20] MED LIST changes: +ASPI1TAB PO; +LEVO137T2; +MAGN500T PO; +SYNT150T PO; +VITA50003 PO; +ZINC60OI TOP
== END ==
LOC: M SMT 12:55
PROVIDERS: ATTEND Nurse Practitioner Family
DX: R30.0 Dysuria (principal)

== ENCOUNTER → 2016-12-05 | Outpatient (CLI) | payer MEDICARE, MEDICAID ==
[2016-12-05 11:36] LABS: INR 1.06
[2016-12-05 12:06] LABS: ALBUMIN 3.2 GM/DL (3.2-5.2); ALBUMIN/GLOBULIN RATIO 0.74 (1.00-1.93); BILIRUBIN,TOTAL 0.7 MG/DL (0.2-1.0); CALCIUM LEVEL 9.5 MG/DL (8.8-10.2); CREATININE FOR GFR 1.15 MG/DL (0.55-1.02); GLOMERULAR FILTRATION RATE 48.6 (>39); POTASSIUM SERUM 4.7 MEQ/L (3.5-5.1); TOTAL PROTEIN 7.5 GM/DL (6.4-8.2)
== END ==
LOC: M LAB 10:25
PROVIDERS: ATTEND Nurse Practitioner Family
DX: N20.0 Calculus of kidney (principal); Z01.818 Encounter for other preprocedural examination; Z79.01 Long term (current) use of anticoagulants

== ENCOUNTER → 2016-12-15 | Day surgery (SDC) | payer MEDICARE, MEDICAID ==
[~2016-12-15] VITALS: Ht 152.4 cm; Wt 119.7 kg
[~2016-12-15] MED LIST changes: +CONRAY-60 60% 50ML VIAL (Q9961) As Ordered ONE; +LIDOCAINE 2% INJ 100 MG/5 ML SDV (FOR ANES.) As Ordered ONE; +LR 1,000 ML IV ONE; +LR 1,000 ML IV SCH; +METOCLOPRAMIDE INJ 10MG/2ML VIAL (J2765) As Ordered ONE; +MIDAZOLAM INJ 2 MG/2 ML VIAL (J2250) As Ordered ONE; +NORCO, ANEXSIA 5/325MG TABLET (HYDROcodone/ACETAMINOPHEN) PO PRN; +ONDANSETRON 4MG/2ML VIAL (J2405) As Ordered ONE; +ONDANSETRON 4MG/2ML VIAL (J2405) IV PRN; +PERCOCET 5MG/325MG TAB As Ordered ONE; +PERCOCET 5MG/325MG TAB PO PRN; +PROPOFOL 200 MG/20 ML VIAL As Ordered ONE; +SUCCINYLCHOLINE 100 MG/5 ML SYRINGE (J0330) As Ordered ONE; +dexameTHASONE 4 MG/ML 1ML VIAL (J1100) As Ordered ONE; +fentaNYL 100 MCG/2 ML INJECTION (J3010) As Ordered ONE; +fentaNYL 100 MCG/2 ML INJECTION (J3010) IV PRN; +oxyBUTYnin 5 MG TAB PO PRN
--- NOTE | 2016-12-15 18:32 | RO ---
DATE OF PROCEDURE: 12/15/2016 PREPROCEDURE DIAGNOSIS: Kidney stones. POSTPROCEDURE DIAGNOSIS: Kidney stones. PROCEDURE: Cystoscopy, right ureteroscopy with basket retraction of stone, bilateral ureteral stent removal, left retrograde pyelogram and interpretation of images, left ureteral stent placement. SURGEON: Ming Cheung MD DIRECTOR SURGICAL: None. ANESTHESIA: General. OPERATIVE INDICATIONS: This is a 76-year-old female who was recently found to have bilateral kidney stones with an obstructing 6 mm stone in the right ureter as well as a left staghorn obstructing stone. She had bilateral stents placed at that time and is here today for treatment of the stone on the right side and exchange of the stent on the left. DESCRIPTION OF PROCEDURE: The patient was brought to the operating room and general anesthesia was induced. Prophylactic antibiotics were infused. She was then placed in the dorsal lithotomy position, prepped and draped in the usual sterile fashion. A rigid cystoscope was then inserted into the urethral meatus and advanced into the bladder. Once it was in the bladder, both previously placed stents were seen. A guidewire was then advanced up into the right collecting system. The stent was then removed leaving the wire in place. The wire was then secured to the drape to serve as a safety wire. We then went up the right collecting system with a short semirigid ureteroscope. Within the distal right ureteral, a 6 mm stone was seen. The stone was then grasped with the basket and was withdrawn from the ureter. The remainder of the ureter was then examined and no additional stones were seen within the ureter. Once we confirmed that no additional stones were seen, this concluded work on the right side. The ureter did appear to be wide open and therefore, we did not place a stent on the right side. Therefore, the wire was removed from the right collecting system and we then proceeded to work on the left side. A wire was then advanced up the left collecting system along side the previously placed stent. The stent was then removed leaving the wire in place to serve as a safety wire. We then advanced an open ended ureteral catheter over the wire up the left collecting system and the wire was then removed. A retrograde pyelogram was performed and of note the patient has approximately three large stones in the left kidney and proximal left ureter. The retrograde pyelogram was notable for moderate left hydronephrosis, but no extravasation. We then advanced the wire back up the ureteral catheter and then removed the ureteral catheter leaving the wire in place. Over the wire, a #7-Amharic x 22-32 cm JJ ureteral stent was then advanced up to the left collecting system. The wire was then removed and there were adequate curls of the stent in the left renal pelvis and within the bladder. The bladder was then emptied of all fluid. This marked the conclusion of the procedure. The patient was placed in dorsal lithotomy position, awakened from anesthesia and transported to the recovery room in stable condition. ESTIMATED BLOOD LOSS: 0 mL. COMPLICATIONS: None. SPECIMENS: Kidney stones. PLAN: The patient will followup in the clinic in about a week or so. Given the large stone within the left collecting system, she is going to require a percutaneous nephrolithotomy. Will get her set up for that percutaneous nephrolithotomy at that time. CARMEN
--- NOTE | 2016-12-15 19:03 | REP ---
Retrograde pyelogram: The procedure is performed by the urologist, Dr. Cheung. A series of four films is performed during placement of a left ureteral stent. Final films demonstrate the proximal and distal pigtails in satisfactory locations. Fluoroscopic exposure time is 16 seconds. Fluoroscopic images are performed with last image hold technology. These images require no additional radiation. Signed by Nicolas Leigh MD 12/15/2016 06:54 P
[2016-12-15 19:30] VITALS: BP 138/60
[2016-12-25 14:15] LABS: Size 4x3x2 mm (.)
== END | disposition home or self-care (01) ==
LOC: M SDC 14:45
PROVIDERS: ATTEND Urology
DX: N20.1 Calculus of ureter (principal); I10 Essential (primary) hypertension; E78.4 Other hyperlipidemia; E03.9 Hypothyroidism, unspecified; Z79.82 Long term (current) use of aspirin; Z79.899 Other long term (current) drug therapy; I25.2 Old myocardial infarction; E66.9 Obesity, unspecified; Z87.891 Personal history of nicotine dependence; Z88.2 Allergy status to sulfonamides; Z88.1 Allergy status to other antibiotic agents; Z91.040 Latex allergy status; Z98.61 Coronary angioplasty status
CPT/HCPCS: 52332; 52352; 74420; 82360; 88300; C1726; C2617; J0330; J0690; J1100; J2250; J2405; J2765; J3010; Q9961

== ENCOUNTER → 2016-12-29 | Outpatient (CLI) | payer MEDICARE, MEDICAID ==
[~2016-12-29] MED LIST changes: -CONRAY-60 60% 50ML VIAL (Q9961) As Ordered ONE; -LIDOCAINE 2% INJ 100 MG/5 ML SDV (FOR ANES.) As Ordered ONE; -LR 1,000 ML IV ONE; -LR 1,000 ML IV SCH; -METOCLOPRAMIDE INJ 10MG/2ML VIAL (J2765) As Ordered ONE; -MIDAZOLAM INJ 2 MG/2 ML VIAL (J2250) As Ordered ONE; -NORCO, ANEXSIA 5/325MG TABLET (HYDROcodone/ACETAMINOPHEN) PO PRN; -ONDANSETRON 4MG/2ML VIAL (J2405) As Ordered ONE; -ONDANSETRON 4MG/2ML VIAL (J2405) IV PRN; -PERCOCET 5MG/325MG TAB As Ordered ONE; -PERCOCET 5MG/325MG TAB PO PRN; -PROPOFOL 200 MG/20 ML VIAL As Ordered ONE; -SUCCINYLCHOLINE 100 MG/5 ML SYRINGE (J0330) As Ordered ONE; -dexameTHASONE 4 MG/ML 1ML VIAL (J1100) As Ordered ONE; -fentaNYL 100 MCG/2 ML INJECTION (J3010) As Ordered ONE; -fentaNYL 100 MCG/2 ML INJECTION (J3010) IV PRN; -oxyBUTYnin 5 MG TAB PO PRN
[2016-12-29 10:31] LABS: MEAN CORPUSCULAR HEMOGLOBIN 27.3 pg (27.0-33.0); MEAN CORPUSCULAR HGB CONC 31.6 g/dl (32.0-36.5); MEAN CORPUSCULAR VOLUME 86.6 fl (80.0-96.0); RED CELL DISTRIBUTION WIDTH 15.3 % (11.5-14.5); WHITE BLOOD COUNT 7.2 K/mm3 (4.0-10.0)
[2016-12-29 10:52] LABS: INR 1.02
[2016-12-29 11:58] LABS: ALBUMIN 2.8 GM/DL (3.2-5.2); ALBUMIN/GLOBULIN RATIO 0.7 (1.00-1.93); BILIRUBIN,TOTAL 0.5 MG/DL (0.2-1.0); CALCIUM LEVEL 9.9 MG/DL (8.8-10.2); CREATININE FOR GFR 1.04 MG/DL (0.55-1.02); GLOMERULAR FILTRATION RATE 54.6 (>39); POTASSIUM SERUM 4.9 MEQ/L (3.5-5.1); TOTAL PROTEIN 6.8 GM/DL (6.4-8.2)
== END ==
LOC: M LAB 09:25
PROVIDERS: ATTEND Nurse Practitioner Family
DX: N20.0 Calculus of kidney (principal); Z79.01 Long term (current) use of anticoagulants

== ENCOUNTER → 2017-01-01 | Outpatient (REF) | payer MEDICARE | LOC: M SMT 13:18 | PROVIDERS: ATTEND Nurse Practitioner Family | DX: N20.0 Calculus of kidney (principal) ==

== ENCOUNTER → 2017-01-06 | Outpatient (REF) | payer MEDICARE, MEDICAID ==
[~2017-01-06] MED LIST changes: -ACET-654 PO; +ACET1TAB17 PO; +AUGM875T28 PO; +BACITAB PO; -BACITAB3 PO; -DOCU100C PO; +DOCU100C16 PO; +HYDR-643 PO; -HYDR10T PO; +IBUP1TAB7 PO; -IBUP800T23 PO; +KEFL500C17 PO; -KEFL500C7 PO; +LEVA1TAB PO; +LEVA1TAB2 PO; -LEVA500T PO; +LEVO500T3 PO; -NYST100024 TOP; +NYST1POW9 TOP; +PERC5TAB12 PO; -PERC5TAB6 PO; +ROCE1INJ4 IV; +VASEGEL EXT; +VITA1CAP40 PO; -VITA50003 PO; +[UNRECOGNIZED DRUG - OTHER] EXT
== END ==
LOC: M SMT 12:56
PROVIDERS: ATTEND Nurse Practitioner Family
DX: Z01.818 Encounter for other preprocedural examination (principal); N20.0 Calculus of kidney

== ENCOUNTER 2017-01-09 10:52 | Outpatient (CLI) | payer MEDICARE, MEDICAID ==
[~2017-01-09 10:52] MED LIST changes: -LEVA1TAB PO; -LEVO500T3 PO; -ROCE1INJ4 IV; -VASEGEL EXT; -[UNRECOGNIZED DRUG - OTHER] EXT
[2017-01-09] MEDS ORDERED: cefTRIAXone SOD 1 GM in D5W MINI-BAG PLUS 50 ML IV SCH (11:15)
[2017-01-09 12:00] VITALS: BP 126/62
== END 2017-01-09 13:04 | disposition home or self-care (01) ==
LOC: M OPCLI4PV 10:52 → M MSPAV 10:54 → M OPCLI4PV 13:04
PROVIDERS: ATTEND Urology
DX: N39.0 Urinary tract infection, site not specified (principal)

== ENCOUNTER 2017-01-10 08:59 | Outpatient (CLI) | payer MEDICARE, MEDICAID ==
[2017-01-10 09:15] VITALS: BP 158/85
[2017-01-10] MEDS ORDERED: cefTRIAXone SOD 1 GM in D5W MINI-BAG PLUS 50 ML IV ONE (10:00)
[2017-01-10 10:15] VITALS: BP 163/84
[2017-01-11] MEDS ORDERED: LEVO500T3 PO (10:28)
[2017-01-11] MEDS ORDERED: LEVO137T2 PO (11:40)
[2017-01-11] MEDS ORDERED: ROCE1INJ4 IV (11:40)
[2017-01-11] MEDS ORDERED: [UNRECOGNIZED DRUG - OTHER] EXT (11:43)
[2017-01-11] MEDS ORDERED: VASEGEL EXT (11:43)
[2017-01-11] MEDS ORDERED: HYDR-643 PO (11:49)
== END 2017-01-10 10:25 | disposition home or self-care (01) ==
LOC: M OPCLIPED 08:59 → M PED 09:06 → M OPCLIPED 10:25
PROVIDERS: ATTEND Urology
DX: N39.0 Urinary tract infection, site not specified (principal)

== ENCOUNTER 2017-01-11 09:58 | Inpatient (IN) | payer MEDICARE, MEDICAID ==
[~2017-01-11] VITALS: Ht 152.4 cm; Wt 115.5 kg
[2017-01-11] MEDS ORDERED: cefTRIAXone SOD 1 GM in D5W MINI-BAG PLUS 50 ML IV ONE (10:15)
[2017-01-11] MEDS ORDERED: LEVO500T3 PO (10:28)
[2017-01-11 10:48] LABS: BASO % 0.8 % (0.0-1.0); EOS # 0.1 K/mm3 (0.0-0.50); EOS % 2.2 % (0.0-3.0); LARGE UNSTAINED CELL # 0.1 K/mm3 (0.0-0.4); LARGE UNSTAINED CELL % 2.4 % (0.0-4.0); LYMPH # 1.6 K/mm3 (1.5-4.5); LYMPH % 27.7 % (24.0-44.0); MEAN CORPUSCULAR HGB CONC 31.3 g/dl (32.0-36.5); MEAN CORPUSCULAR VOLUME 86.4 fl (80.0-96.0); MONO # 0.5 K/mm3 (0.0-0.8); MONO % 8.6 % (0.0-5.0); NEUTROPHILS # 3.1 K/mm3 (1.8-7.7); NEUTROPHILS % 58.4 % (36.0-66.0); PLATELET COUNT, AUTOMATED 386 k/mm3 (150-450); WHITE BLOOD COUNT 5.3 K/mm3 (4.0-10.0)
[2017-01-11 11:03] LABS: CALCIUM LEVEL 9.3 MG/DL (8.8-10.2); CREATININE FOR GFR 1.03 MG/DL (0.55-1.02); GLOMERULAR FILTRATION RATE 55.2 (>39); POTASSIUM SERUM 4.2 MEQ/L (3.5-5.1)
--- NOTE | 2017-01-11 11:30 | REP ---
Clinical: Trauma. Technique: AP, lateral, bilateral oblique and sunrise views of the left knee. Findings: Osteopenia and advanced tricompartmental osteoarthritic degenerative changes are appreciated. Lateral view best demonstrates moderate suprapatellar effusion. No obvious acute fracture or dislocation identified. Impression: Effusion. No obvious acute fracture dislocation. Signed by Ethan Leone MD 01/11/2017 11:20 A
[2017-01-11] MEDS ORDERED: ROCE1INJ4 IV (11:40)
[2017-01-11] MEDS ORDERED: LEVO137T2 PO (11:40)
[2017-01-11] MEDS ORDERED: [UNRECOGNIZED DRUG - OTHER] EXT (11:43)
[2017-01-11] MEDS ORDERED: VASEGEL EXT (11:43)
[2017-01-11] MEDS ORDERED: HYDR-643 PO (11:49)
[2017-01-11] MEDS ORDERED: IPRATROPIUM 0.5MG/ALBUTEROL 2.5MG INH SOL UD 3ML (DUONEB)(J7620) NEB PRN (13:15)
[2017-01-11] MEDS ORDERED: ONDANSETRON 4 MG ORAL DISINTEGRATING TAB (S0181) PO PRN (13:15)
[2017-01-11] MEDS ORDERED: ZINC OXIDE 20% OINTMENT 60GM TUBE TOP PRN (13:15)
[2017-01-11] MEDS ORDERED: hydrOXYzine 10 MG TAB PO PRN (13:15)
[2017-01-11] MEDS ORDERED: ACETAMINOPHEN TAB 650MG DOSE (2X325MG) PO PRN (13:15)
[2017-01-11 14:15] VITALS: BP 126/60
--- NOTE | 2017-01-11 15:07 | HPE ---
DATE OF ADMISSION: 01/11/2017 PRIMARY CARE DOCTOR: Dr. Dean Sheffield CHIEF COMPLAINT: Left knee pain. HISTORY OF THE PRESENT ILLNESS: The patient is a 76-year-old female with a diagnosis of Pseudomonas kidney infection. She was recommended 10 days of intravenous (IV) antibiotics with Rocephin and 10 day oral antibiotics with Levaquin. She was visiting the infusion center daily for her IV antibiotic treatment. She concluded 3 days; however, yesterday she wrenched and twisted her left knee, which resulted in severe pain and decreased mobility of the leg, and difficulty ambulating, even getting out of bed. She skipped a dose yesterday, so today she came to the emergency room (ER), as according to Dr. Cheung's recommendation, to conclude the remaining 7 days in the hospital. She denies fever, chills, nausea, vomiting, diarrhea, constipation, headache, blurred vision. PAST MEDICAL HISTORY: Hypertension. Hypothyroidism. Bilateral venous stasis. Chronic lymphedema. History of methicillin-resistant Staphylococcus aureus (MRSA). Recurrent cellulitis. Dyslipidemia. PAST SURGICAL HISTORY: Laminectomy in the lumbar area. Hysterectomy. Appendectomy. Dilation and curettage (D and C). Two left knee surgeries. FAMILY HISTORY: Sister diabetic, another sister has lung cancer, a brother with diabetic neuropathy, dad coronary artery disease and diabetes. She has a daughter who has hydrocephalus and a son who committed suicide, a daughter who was killed by her boyfriend at the age of 29. SOCIAL HISTORY: She was an ex-smoker, quit 10 years ago. Prior to that, she smoked 1-2 packs a day for 30 years. Denies any alcohol abuse or recreational drug use. ALLERGIES TO MEDICATION: SULFA, reaction is giant hives, BARBITURATE - same reaction. She also has allergy to PINEAPPLE, LATEX, also RUBBER. LIST OF HOME MEDICATIONS: Includes: - vitamin D2 50,000 units every 2 weeks - lactobacillus one tablet daily - zinc oxide to be applied to extremities with redness and irritation - Rocephin daily - ibandronate 150 mg by mouth once a month - baby aspirin - hydroxyzine 10 mg by mouth twice a day - hydroxyzine 10 mg by mouth four times a day as needed for itching - levothyroxine 137 mcg once a day - magnesium gluconate 500 mg twice a day - ondansetron 4 mg by mouth three times a day as needed for nausea - Percocet 5-325 tablet one by mouth four times a day as needed for pain - potassium chloride 10 mEq by mouth daily - rosuvastatin/Crestor 40 mg by mouth daily - zinc oxide PHYSICAL EXAMINATION: VITAL SIGNS: Blood pressure 128/56, pulse 92, respiratory rate 18, oxygen saturation 94% on room air, temperature 98.7 degrees Fahrenheit. GENERAL: She is alert, oriented to person, place, time and circumstance, comfortable, cooperative, talkative, pleasant. HEENT: Pupils are equal, round and reactive to light. Extraocular muscles intact. Nonicteric sclerae. Mucous membranes moist. NECK: Nontender to palpation. Supple. No obvious jugular venous distention (JVD). CARDIOVASCULAR SYSTEM: S1, S2 present, rate is regular. RESPIRATORY SYSTEM: Lungs clear to auscultation bilaterally. GASTROINTESTINAL (GI): Abdomen is soft, nontender, nondistended. Bowel sounds are normal. MUSCULOSKELETAL SYSTEM: She has trace pedal edema with bilateral venous stasis, dry and peeling skin of both legs. SKIN: Warm, dry, without obvious rash. LABORATORY: Hematology: White blood cell count 5.3, hemoglobin 12.3, hematocrit 39.4, platelets of 386. Chemistry: Sodium 139, potassium 4.2, chloride 109, bicarbonate 24, BUN 13, creatinine 1.03, fasting glucose 122, calcium 9.3. IMAGING STUDIES: X-ray of the left knee showed no acute fracture or dislocation. REVIEW OF SYSTEMS: 10-point systems assessed, all negative except as stated in the history of the present illness above. IMPRESSION: 1. Urinary tract infection (UTI)/pyelonephritis. 2. Left knee sprain. 3. History of hypertension. Blood pressure controlled. 4. History of hypothyroidism, stable. 5. History of dyslipidemia, also controlled on medication. PLAN: The patient is admitted to the medical-surgical floor to conclude 7 days of IV antibiotics. She was resumed on Rocephin daily and Levaquin as well. Other chronic needed medications are resumed. Deep vein thrombosis (DVT) prophylaxis with Lovenox. Physical therapy consult requested for ambulation.
[2017-01-11] MEDS: IPRATROPIUM 0.5MG/ALBUTEROL 2.5MG INH SOL UD 3ML (DUONEB)(J7620) NEB SCH ×3 (15:14→20:49)
[2017-01-11] MEDS ORDERED: LevoFLOXacin IV 250 MG in APPROPRIATE DILUENT 1 EA IV ONE (16:00)
[2017-01-11] MEDS: MAGNESIUM GLUCONATE 500 MG TAB PO SCH (20:18)
[2017-01-11] MEDS: hydrOXYzine 10 MG TAB PO SCH (20:18)
[2017-01-11] MEDS: PERCOCET 5MG/325MG TAB PO PRN (20:18)
[2017-01-11 22:00] VITALS: BP 109/51
[2017-01-12 06:00] VITALS: BP 126/65
[2017-01-12] MEDS: LEVOTHYROXINE 137MCG TABLET (0.137MG) PO SCH (06:06)
[2017-01-12 06:14] LABS: BASO # 0.1 K/mm3 (0.0-0.2); BASO % 1.3 % (0.0-1.0); EOS # 0.2 K/mm3 (0.0-0.50); EOS % 4.1 % (0.0-3.0); LARGE UNSTAINED CELL # 0.2 K/mm3 (0.0-0.4); LARGE UNSTAINED CELL % 3.5 % (0.0-4.0); LYMPH % 38.6 % (24.0-44.0); MEAN CORPUSCULAR HEMOGLOBIN 27.9 pg (27.0-33.0); MEAN CORPUSCULAR HGB CONC 31.9 g/dl (32.0-36.5); MEAN CORPUSCULAR VOLUME 87.3 fl (80.0-96.0); MONO # 0.5 K/mm3 (0.0-0.8); MONO % 10.1 % (0.0-5.0); NEUTROPHILS % 42.2 % (36.0-66.0); PLATELET COUNT, AUTOMATED 347 k/mm3 (150-450); RED CELL DISTRIBUTION WIDTH 15.3 % (11.5-14.5); WHITE BLOOD COUNT 4.7 K/mm3 (4.0-10.0)
[2017-01-12 06:29] LABS: ALBUMIN 2.4 GM/DL (3.2-5.2); ALBUMIN/GLOBULIN RATIO 0.6 (1.00-1.93); BILIRUBIN,TOTAL 0.3 MG/DL (0.2-1.0); CALCIUM LEVEL 8.9 MG/DL (8.8-10.2); CREATININE FOR GFR 1.11 MG/DL (0.55-1.02); GLOMERULAR FILTRATION RATE 50.6 (>39); TOTAL PROTEIN 6.4 GM/DL (6.4-8.2)
[2017-01-12] MEDS: IPRATROPIUM 0.5MG/ALBUTEROL 2.5MG INH SOL UD 3ML (DUONEB)(J7620) NEB SCH ×3 (07:23→19:29)
[2017-01-12] MEDS: NYSTATIN 100,000 UNITS/GM TOPICAL PWD 15 GM TOP SCH ×2 (09:00→22:23)
[2017-01-12] MEDS: ASPIRIN 81 MG ENTERIC TAB PO SCH ×2 (09:00→10:02)
[2017-01-12] MEDS: MAGNESIUM GLUCONATE 500 MG TAB PO SCH ×2 (10:01→22:23)
[2017-01-12] MEDS: hydrOXYzine 10 MG TAB PO SCH ×2 (10:02→22:23)
[2017-01-12] MEDS: ROSUVASTATIN 10 MG TAB (CRESTOR) PO SCH (10:02)
[2017-01-12] MEDS: POTASSIUM CHLORIDE 10 MEQ SR TABLET PO SCH (10:02)
[2017-01-12] MEDS: ENOXAPARIN 40 MG/0.4 ML SYRINGE (J1650) SC SCH (10:03)
[2017-01-12 10:11] LABS: ERYTHROCYTE SEDIMENTATION RATE 60 mm/hr (0-30)
[2017-01-12] MEDS: cefTRIAXone SOD 2 GM in D5W MINI-BAG PLUS 50 ML IV SCH (10:31)
[2017-01-12] MEDS: LevoFLOXacin IV 250 MG in APPROPRIATE DILUENT 1 EA IV SCH (12:22)
--- NOTE | 2017-01-12 12:27 | IPN ---
DATE OF SERVICE: 01/12/2017 The patient seen and examined. No acute events overnight. Reported left knee pain since the fall. Worsened with movement and also swollen. Denies any chest pain, pressure or discomfort. Denies any abdominal pain. VITAL SIGNS: Temperature 99, pulse 75, respirations 18, blood pressure 126/65, pulse oximetry 94% on room air. LABORATORY: WBC 4.7, H/H 11/34.5, platelets 347. Chemistries: Sodium 143, potassium 4, chloride 113, bicarbonate 24, BUN 15, creatinine 1.1. PHYSICAL EXAMINATION: GENERAL: Patient morbidly obese. Alert and oriented times three, in no acute distress. HEENT: Normocephalic, atraumatic. Pupils equal round and reactive bilaterally. NECK: Supple. Nontender. PULMONARY: Bilateral clear to auscultation. CARDIAC: Regular. S1, S2. ABDOMEN: Soft. Nontender. Positive bowel sounds. EXTREMITIES: Trace edema bilateral lower extremities. Venous stasis skin changes. Also left knee with some bruising and mild swelling. Tender with passive range of motion. ASSESSMENT AND PLAN: This is a 76-year-old female patient with underlying medical history of hypertension, hypothyroidism, bilateral venous stasis, chronic lymphedema, history of methicillin-resistant Staphylococcus aureus (MRSA), recurrent cellulitis, dyslipidemia, and history of urinary tract infection (UTI) with hydroureter and nephrolithiasis who sees Dr. Cheung who presented status post fall with twisting her left knee. PROBLEMS: 1. Left knee sprain. Consulted orthopedics, Dr. Lalo Luo. X-rays appreciated. Will consider MRI as per orthopedics. Weight bearing status as per orthopedics. Pain regimen as prescribed. 2. UTI with pyelonephritis and hydroureter. The case discussed with Dr. Cheung. The patient is supposed to get a nephroureteral stent by Dr. Meyer on . Interventional radiology has been consulted for the procedure and Dr. Cheung has scheduled his OR procedure for possible stone removal on 01/19/2017. In the meantime, will continue physical therapy and continue antibiotics for a ten day course. Cultures have been appreciated. Continue Rocephin and Levaquin. Today is day #4. 3. Hypertension. Continue current medications. Monitor blood pressure. 4. Hypothyroidism. Continue current medication. Followup thyroid function tests. 5. Obesity complicating care. 6. Bilateral lower extremity venous stasis. Outpatient followup. Leg elevation. 7. Dyslipidemia. Continue current medication. 8. Deep vein thrombosis (DVT) prophylaxis. Lovenox subcutaneous. DISPOSITION: Pending clinical improvement, orthopedic consultation, interventional radiology procedure on and physical therapy.
[2017-01-12 14:00] VITALS: BP 122/58
[2017-01-12 22:00] VITALS: BP 135/57
[2017-01-12] MEDS: PERCOCET 5MG/325MG TAB PO PRN (22:24)
[2017-01-13] MEDS: IPRATROPIUM 0.5MG/ALBUTEROL 2.5MG INH SOL UD 3ML (DUONEB)(J7620) NEB SCH ×4 (01:13→19:36)
[2017-01-13] MEDS: LEVOTHYROXINE 137MCG TABLET (0.137MG) PO SCH (05:47)
--- NOTE | 2017-01-13 05:57 | CR ---
DATE OF CONSULTATION: 01/12/2017 REASON FOR CONSULTATION: Left knee pain. 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 Saul Luo. She has always had pain in that left knee but was doing pretty well, pretty much at her baseline until just a couple of days when she twisted her left knee when her opposite right foot slipped on some wet surface during the rain. Went to sit down, her foot did not move with her well and she twisted it. No falls, and has been unable to ambulate or get around, and this occurred in the sitting of in the middle of being managed for a pseudomonas kidney infection or pyelonephrosis, who has renal calculi and is actually due also to receive kidney stone removal treatments by Dr. Cheung early next week. Because she was admitted because of the sprain of her left knee, I was asked to see her. Otherwise, she has been doing fairly well with the infection. She has a fairly extensive past medical history of obesity, hypothyroidism, hypertension, bilateral venous stasis edema, chronic lymphedema both lower extremities, cellulitis, dyslipidemia. Past surgical history she has had back surgery, hysterectomy, appendectomy, dilation and curettage, and I note two left knee surgeries. ALLERGIES: SULFA. HOME MEDICATIONS: Rocephin, ibandronate, hydroxyzine, levothyroxine, chronic Percocet, potassium chloride, Crestor. REVIEW OF SYSTEMS: Please see the admitting doctor's notes. PHYSICAL EXAMINATION: Otherwise when I examine her, she is a very pleasant, alert female. She is not in any acute distress. Her left knee pain she says feels much better than it did the other day, and the swelling is all but gone. She still has discomfort and pain which she uses her [place] crutch when she ambulates. Her left knee on exam shows the two healed scars, but there is really minimal effusion. It is not hot, not red. There is some mild lymphedematous type cellulitis of the lower 50% of her lower leg. It is chronic for her. Distally she has a good pulse. No irritability to rotation of her hip. IMAGING: Radiograph showed advanced tricompartment degenerative arthritis of the left knee. No fractures are noted. IMPRESSION: I think this is a sprained arthritic knee, and I would not recommend any other treatment other than symptomatic management, and ambulate as pain allows. This should gradually subside back to her baseline, and we could follow this up in a few weeks in the office if needed. I discussed this with Dr. Mar.
[2017-01-13 06:00] VITALS: BP 101/56
[2017-01-13 06:18] LABS: BASO # 0.1 K/mm3 (0.0-0.2); BASO % 1.1 % (0.0-1.0); EOS # 0.3 K/mm3 (0.0-0.50); EOS % 5.3 % (0.0-3.0); LARGE UNSTAINED CELL # 0.2 K/mm3 (0.0-0.4); LARGE UNSTAINED CELL % 3.2 % (0.0-4.0); LYMPH # 1.9 K/mm3 (1.5-4.5); MEAN CORPUSCULAR HEMOGLOBIN 27.6 pg (27.0-33.0); MEAN CORPUSCULAR HGB CONC 31.5 g/dl (32.0-36.5); MEAN CORPUSCULAR VOLUME 87.4 fl (80.0-96.0); MONO # 0.5 K/mm3 (0.0-0.8); NEUTROPHILS # 2.8 K/mm3 (1.8-7.7); NEUTROPHILS % 48.3 % (36.0-66.0); PLATELET COUNT, AUTOMATED 364 k/mm3 (150-450); WHITE BLOOD COUNT 5.7 K/mm3 (4.0-10.0)
[2017-01-13 06:47] LABS: ALBUMIN 2.4 GM/DL (3.2-5.2); ALBUMIN/GLOBULIN RATIO 0.63 (1.00-1.93); ALKALINE PHOSPHATASE 58 U/L (45-117); ALT/SGPT 9 U/L (12-78); ANION GAP 7 MEQ/L (8-16); AST/SGOT 11 U/L (15-37); BILIRUBIN,TOTAL 0.2 MG/DL (0.2-1.0); BLOOD UREA NITROGEN 16 MG/DL (7-18); CALCIUM LEVEL 9.2 MG/DL (8.8-10.2); CARBON DIOXIDE LEVEL 24 MEQ/L (21-32); CHLORIDE LEVEL 111 MEQ/L (98-107); CREATININE FOR GFR 0.89 MG/DL (0.55-1.02); GLOMERULAR FILTRATION RATE > 60.0 (>39); GLUCOSE, FASTING 94 MG/DL (83-110); POTASSIUM SERUM 4.1 MEQ/L (3.5-5.1); SODIUM LEVEL 142 MEQ/L (136-145); T UPTAKE 39 % (30-39); THYROXINE (T4) 12.1 UG/DL (4.5-12.0); TOTAL PROTEIN 6.2 GM/DL (6.4-8.2)
[2017-01-13] MEDS: ASPIRIN 81 MG ENTERIC TAB PO SCH (09:00)
[2017-01-13] MEDS: cefTRIAXone SOD 2 GM in D5W MINI-BAG PLUS 50 ML IV SCH (09:38)
[2017-01-13] MEDS: NYSTATIN 100,000 UNITS/GM TOPICAL PWD 15 GM TOP SCH ×2 (09:38→21:06)
[2017-01-13] MEDS: hydrOXYzine 10 MG TAB PO SCH ×2 (09:39→21:06)
[2017-01-13] MEDS: ROSUVASTATIN 10 MG TAB (CRESTOR) PO SCH (09:39)
[2017-01-13] MEDS: MAGNESIUM GLUCONATE 500 MG TAB PO SCH ×2 (09:39→21:06)
[2017-01-13] MEDS: POTASSIUM CHLORIDE 10 MEQ SR TABLET PO SCH (09:39)
[2017-01-13] MEDS: ENOXAPARIN 40 MG/0.4 ML SYRINGE (J1650) SC SCH (09:39)
[2017-01-13] MEDS: LACTOBACILLUS ACIDOPHILUS CAP (BACID) PO SCH ×3 (10:13→21:06)
[2017-01-13] MEDS: LevoFLOXacin IV 250 MG in APPROPRIATE DILUENT 1 EA IV SCH (12:27)
--- NOTE | 2017-01-13 13:19 | IPN ---
DATE OF SERVICE: 01/13/2017 Patient seen and examined. Continues to report lower extremity pain. Continues to report left knee pain. Denies any chest pain, pressure, or discomfort. Denies any fevers or chills. Denies any shortness of breath. Discussed goals of care with the patient. Patient is aware that tentatively patient's interventional radiology procedure for nephroureteral stent is scheduled on , and if patient has physical therapy and antibiotics at home can be arranged, patient could potentially return home, for the patient to come back on 01/19/2017 for further urological procedure with Dr. Cheung. Patient is adamant that she will not be able to return home prior. Furthermore, patient has refused additional antibiotic regimen from infectious disease specialist to see if intravenous (IV) antibiotics can be converted into oral. Patient is poorly compliant. Reported diarrhea about 3-4 episodes overnight. Clostridium (C) difficile has been ordered. VITAL SIGNS: Temperature 96.9, pulse 69, respirations 18, blood pressure 101/56 , pulse oximetry 95% on room air. WBC 5.7, hemoglobin and hematocrit (H and H) 11/34.8, platelets 364. Chemistry; sodium 142, potassium 4.1, chloride 101, bicarbonate 24, BUN 16, creatinine 0.86. GENERAL: Patient alert and oriented times three, no acute distress. HEENT: Normocephalic, atraumatic. Pupils equal, round, and reactive. NECK: Supple. Nontender. PULMONARY: Bilateral clear to auscultation. CARDIAC: Regular rate, rhythm. Normal S1, S2. ABDOMEN: Soft. Nontender. Positive bowel sounds. EXTREMITIES: Trace edema bilateral lower extremities. Venous stasis skin changes. Left knee shows some bruising and mild swelling. Tender to palpation. ASSESSMENT AND PLAN: This is a 76-year-old female patient with underlying medical history of hypertension, hypothyroidism, bilateral lower extremity venous stasis, chronic lymphedema, history of methicillin-resistant Staphylococcus aureus (MRSA), recurrent cellulitis, dyslipidemia, and history of urinary tract infection (UTI) with hydroureter and nephrolithiasis, sees Dr. Cheung, presented status post fall with twisting of her knees. PROBLEMS: 1. Left knee sprain. Consulted orthopedics. Appreciate Dr. Lalo Luo's assessment. X-rays appreciated. Weight bearing as tolerated. Pain regimen was prescribed. 2. Urinary tract infection (UTI) with pyelonephritis and hydroureter. Case discussed with Dr. Cheung. Patient supposed to get a nephroureteral stent by Dr. Meyer on . Interventional radiology has been consulted. Dr. Cheung has scheduled operating room (OR) for the procedure on 01/19/2017. Per Dr. Cheung, could be done electively if she desires, and does not need to stay in the hospital until 01/19/2017. If patient could be discharge, patient will need 10 day course of antibiotics, Rocephin and Levaquin based on the culture, but patient has refused further infectious disease assessment in terms of the feasibility of changing antibiotics to oral. Today, is day #5 of antibiotics. 3. Hypertension. Continue current medication. 4. Hypothyroidism. Continue current medication. Thyroid function appreciated. Needs outpatient followup. 5. Obesity complicating care. 6. Bilateral lower extremity venous stasis. Outpatient followup. Leg elevation. 7. Dyslipidemia. Continue current medication. Poor compliance. Patient is very particular about her care and has not followed medical recommendation on some occasions. Will further senior living sales counselor the patient the importance of following the treatment plan. 8. Diarrhea. C. difficile has been sent. Bacid has been ordered. Continue to monitor. 9. Deep vein thrombosis (DVT) prophylaxis. Lovenox subcutaneous. DISPOSITION: Pending clinical improvement, her interventional radiology procedure on , physical therapy. Unfortunately, I am afraid that patient might not participate with physical therapy with the agenda of staying in the hospital until Thursday. CARMEN
[2017-01-13 14:00] VITALS: BP 98/51
[2017-01-13] MEDS: PERCOCET 5MG/325MG TAB PO PRN (21:07)
[2017-01-13 22:00] VITALS: BP 132/59
[2017-01-14] MEDS: IPRATROPIUM 0.5MG/ALBUTEROL 2.5MG INH SOL UD 3ML (DUONEB)(J7620) NEB SCH ×4 (01:09→19:39)
[2017-01-14] MEDS: LEVOTHYROXINE 137MCG TABLET (0.137MG) PO SCH (05:37)
[2017-01-14 06:00] VITALS: BP 122/58
[2017-01-14 06:30] LABS: BASO # 0.1 K/mm3 (0.0-0.2); BASO % 1.3 % (0.0-1.0); EOS # 0.2 K/mm3 (0.0-0.50); EOS % 4.9 % (0.0-3.0); LARGE UNSTAINED CELL # 0.2 K/mm3 (0.0-0.4); LYMPH # 1.8 K/mm3 (1.5-4.5); LYMPH % 35.3 % (24.0-44.0); MEAN CORPUSCULAR HEMOGLOBIN 27.1 pg (27.0-33.0); MEAN CORPUSCULAR HGB CONC 30.9 g/dl (32.0-36.5); MEAN CORPUSCULAR VOLUME 87.9 fl (80.0-96.0); MONO # 0.5 K/mm3 (0.0-0.8); MONO % 9.7 % (0.0-5.0); NEUTROPHILS # 2.4 K/mm3 (1.8-7.7); NEUTROPHILS % 45.8 % (36.0-66.0); PLATELET COUNT, AUTOMATED 342 k/mm3 (150-450); RED CELL DISTRIBUTION WIDTH 15.1 % (11.5-14.5); WHITE BLOOD COUNT 5.1 K/mm3 (4.0-10.0)
[2017-01-14 06:44] LABS: ALBUMIN 2.4 GM/DL (3.2-5.2); ALBUMIN/GLOBULIN RATIO 0.59 (1.00-1.93); ALKALINE PHOSPHATASE 60 U/L (45-117); ALT/SGPT 11 U/L (12-78); ANION GAP 5 MEQ/L (8-16); AST/SGOT 11 U/L (15-37); BILIRUBIN,TOTAL 0.3 MG/DL (0.2-1.0); BLOOD UREA NITROGEN 16 MG/DL (7-18); CALCIUM LEVEL 9.4 MG/DL (8.8-10.2); CARBON DIOXIDE LEVEL 26 MEQ/L (21-32); CHLORIDE LEVEL 112 MEQ/L (98-107); CREATININE FOR GFR 0.88 MG/DL (0.55-1.02); GLOMERULAR FILTRATION RATE > 60.0 (>39); GLUCOSE, FASTING 117 MG/DL (83-110); POTASSIUM SERUM 4.2 MEQ/L (3.5-5.1); SODIUM LEVEL 143 MEQ/L (136-145); TOTAL PROTEIN 6.5 GM/DL (6.4-8.2)
[2017-01-14] MEDS: ASPIRIN 81 MG ENTERIC TAB PO SCH (09:00)
[2017-01-14] MEDS: LACTOBACILLUS ACIDOPHILUS CAP (BACID) PO SCH ×3 (10:20→21:50)
[2017-01-14] MEDS: ROSUVASTATIN 10 MG TAB (CRESTOR) PO SCH (10:20)
[2017-01-14] MEDS: hydrOXYzine 10 MG TAB PO SCH ×2 (10:22→21:50)
[2017-01-14] MEDS: MAGNESIUM GLUCONATE 500 MG TAB PO SCH ×2 (10:22→21:50)
[2017-01-14] MEDS: ENOXAPARIN 40 MG/0.4 ML SYRINGE (J1650) SC SCH (10:22)
[2017-01-14] MEDS: POTASSIUM CHLORIDE 10 MEQ SR TABLET PO SCH (10:23)
[2017-01-14] MEDS: cefTRIAXone SOD 2 GM in D5W MINI-BAG PLUS 50 ML IV SCH (10:23)
[2017-01-14] MEDS: NYSTATIN 100,000 UNITS/GM TOPICAL PWD 15 GM TOP SCH ×2 (10:23→21:50)
[2017-01-14] MEDS: LevoFLOXacin IV 250 MG in APPROPRIATE DILUENT 1 EA IV SCH (12:40)
[2017-01-14 14:00] VITALS: BP 135/56
--- NOTE | 2017-01-14 19:01 | IPN ---
DATE: 01/14/2017 SUBJECTIVE: The patient seen and examined. No acute events overnight. Denies any fever, chills, chest pain, pressure or discomfort. VITAL SIGNS: Temperature 97.8, pulse 83, respirations 16, blood pressure 135/56, pulse oximetry 94% on room air. LABORATORY: WBC 5.1, hemoglobin and hematocrit 11.3/36.6, platelets 342. Chemistry: Sodium 143, potassium 4.2, chloride 112, bicarbonate 26, BUN 16, creatinine 0.88. PHYSICAL EXAMINATION: GENERAL: The patient alert and oriented times three. No acute distress. obese. HEENT: Normocephalic, atraumatic. Pupils equal, round and reactive. NECK: Supple. nontender. PULMONARY: Bilateral clear to auscultation. CARDIAC: Regular rate and rhythm. Normal S1, S2. ABDOMEN: Soft, nontender. Positive bowel sounds. EXTREMITIES: Trace edema bilateral lower extremities. Venous stasis skin changes. Left knee mildly tender to manipulation. ASSESSMENT AND PLAN: This is a 76-year-old female patient with underlying medical history of hypertension, hypothyroidism, bilateral lower extremity mitchel stasis, chronic lymphedema, history of Methicillin-resistant Staphylococcus aureus (MRSA), recurrent cellulitis, dyslipidemia, history of urinary tract infection (UTI) with hydroureter and nephrolithiasis. Sees Dr. Cheung. Presented status post fall, twisting her knees. PROBLEMS: 1. Left knee sprain. Consult to orthopedics. Appreciated Dr. Lalo Luo's assistance. X-rays appreciated. Weightbearing as tolerated. Pain regimen is prescribed. 2. Urinary tract infection (UTI) with pyelonephritis and hydroureter. Case discussed with Dr. Cheung. The patient is supposed to get nephroureteral stent by Dr. Meyer on . Interventional radiology has been consulted. Dr. Cheung has been consulted. The patient was supposed to get outpatient elective procedure by Dr. Cheung on January 19, 2017[address] Dr. Cheung was consulted continue antibiotics until January 18, 2017 with Rocephin and Levaquin based on cultures. The patient has refused infectious disease input in the case. Is adamant about staying in the hospital until the procedure on January 19, 2017. Today is da #6 of antibiotics. 3. Hypertension. Continue current medication. 4. Hypothyroidism. Continue current medication. Thyroid function appreciated. Need outpatient followup/ 5. Obesity complicating care. Bilateral lower extremity venous stasis ulcer. Outpatient followup. Leg elevation. 6. Dyslipidemia. Continue current medication. Poor compliance. 7. Poor compliance. The patient was very particular about her care. 8. Diarrhea. C. difficile has been sent. Bacid has been ordered. Continue to monitor. 9. Deep venous thrombosis (DVT) prophylaxis. Lovenox subcutaneous. DISPOSITION PLANNING: Pending clinical improvement, interventional radiology procedure on , physical therapy.
[2017-01-14 22:00] VITALS: BP 113/54
[2017-01-15] MEDS: IPRATROPIUM 0.5MG/ALBUTEROL 2.5MG INH SOL UD 3ML (DUONEB)(J7620) NEB SCH ×4 (00:27→19:43)
[2017-01-15] MEDS: LEVOTHYROXINE 137MCG TABLET (0.137MG) PO SCH (05:44)
[2017-01-15] MEDS: LevoFLOXacin 250 MG TABLET PO SCH (05:44)
[2017-01-15 06:00] VITALS: BP 108/56
[2017-01-15 06:14] LABS: BASO % 0.7 % (0.0-1.0); EOS # 0.2 K/mm3 (0.0-0.50); EOS % 4.5 % (0.0-3.0); LARGE UNSTAINED CELL # 0.1 K/mm3 (0.0-0.4); LARGE UNSTAINED CELL % 2.6 % (0.0-4.0); LYMPH # 1.8 K/mm3 (1.5-4.5); LYMPH % 33.3 % (24.0-44.0); MEAN CORPUSCULAR HEMOGLOBIN 27.4 pg (27.0-33.0); MEAN CORPUSCULAR VOLUME 85.6 fl (80.0-96.0); MONO # 0.5 K/mm3 (0.0-0.8); MONO % 9.9 % (0.0-5.0); NEUTROPHILS # 2.5 K/mm3 (1.8-7.7); PLATELET COUNT, AUTOMATED 345 k/mm3 (150-450); RED CELL DISTRIBUTION WIDTH 15.1 % (11.5-14.5); WHITE BLOOD COUNT 5.1 K/mm3 (4.0-10.0)
[2017-01-15 06:31] LABS: ALBUMIN 2.5 GM/DL (3.2-5.2); ALBUMIN/GLOBULIN RATIO 0.58 (1.00-1.93); ALKALINE PHOSPHATASE 62 U/L (45-117); ALT/SGPT 11 U/L (12-78); ANION GAP 8 MEQ/L (8-16); AST/SGOT 7 U/L (15-37); BILIRUBIN,TOTAL 0.3 MG/DL (0.2-1.0); BLOOD UREA NITROGEN 17 MG/DL (7-18); CALCIUM LEVEL 9.8 MG/DL (8.8-10.2); CARBON DIOXIDE LEVEL 25 MEQ/L (21-32); CHLORIDE LEVEL 109 MEQ/L (98-107); CREATININE FOR GFR 0.85 MG/DL (0.55-1.02); GLOMERULAR FILTRATION RATE > 60.0 (>39); GLUCOSE, FASTING 92 MG/DL (83-110); POTASSIUM SERUM 4.1 MEQ/L (3.5-5.1); SODIUM LEVEL 142 MEQ/L (136-145); TOTAL PROTEIN 6.8 GM/DL (6.4-8.2)
[2017-01-15] MEDS: ENOXAPARIN 40 MG/0.4 ML SYRINGE (J1650) SC SCH (07:44)
[2017-01-15] MEDS: ASPIRIN 81 MG ENTERIC TAB PO SCH (09:00)
[2017-01-15] MEDS: MAGNESIUM GLUCONATE 500 MG TAB PO SCH ×2 (09:28→21:18)
[2017-01-15] MEDS: hydrOXYzine 10 MG TAB PO SCH ×2 (09:28→21:18)
[2017-01-15] MEDS: LACTOBACILLUS ACIDOPHILUS CAP (BACID) PO SCH ×3 (09:28→21:18)
[2017-01-15] MEDS: cefTRIAXone SOD 2 GM in D5W MINI-BAG PLUS 50 ML IV SCH (09:28)
[2017-01-15] MEDS: ROSUVASTATIN 10 MG TAB (CRESTOR) PO SCH (09:28)
[2017-01-15] MEDS: POTASSIUM CHLORIDE 10 MEQ SR TABLET PO SCH (09:28)
[2017-01-15] MEDS: NYSTATIN 100,000 UNITS/GM TOPICAL PWD 15 GM TOP SCH ×2 (09:29→21:18)
--- NOTE | 2017-01-15 13:57 | SMCUROLCON ---
Urology Consultation General Date of Consultation 01/15/17 Reason For Consultation Kidney Stones History of Present Illness The patient is a 76-year-old F w/ kidney stones, admitted recently to the hospital for treatment of a sprained left knee. The patient was also scheduled for a left PCNL on Thursday for treatment of her kidney stones. She currently has a stent in place and has no pain from that. She is also receiving IV rocephin and PO levaquin for treatment of a UTI diagnosed last week. She has not had any fevers. She has no voiding complaints. Past Medical History Medical History kidney stones Medications Current Medications Current Medications Acetaminophen (Tylenol Tab) 650 mg Q4HP PRN PO MILD PAIN OR FEVER; Start at 13:15; Stop 02/10/17 at 13:14 Albuterol/ Ipratropium (Duoneb (Ipr 0.5mg/Alb 2.5mg)) 3 ml Q2HP PRN NEB SOB/ WHEEZING Last administered on 01/15/17 01:59; Start 01/11/17 at 13:15; Stop at 13:14 Albuterol/ Ipratropium (Duoneb (Ipr 0.5mg/Alb 2.5mg)) 3 ml RQ6H NEB Last administered on 01/15/17 13:31; Start 01/11/17 at 14:00; Stop 02/10/17 at 13:59 Aspirin (Ecotrin) 81 mg DAILY PO ; Start 01/12/17 at 09:00; Stop 02/11/17 at 08:59 Ceftriaxone Sodium 2 gm/ Dextrose 50 ml @ 100 mls/hr DAILY IV Last administered on 01/15/17 09:28; Start 01/12/17 at 09:00; Stop 01/19/17 at 08:59 Enoxaparin Sodium (Lovenox) 40 mg DAILY SC Last administered on 01/14/17 10:22 ; Start 01/12/17 at 09:00; Stop 01/17/17 at 08:59 Home Med (Med Rec Complete!) ASDIRECTED XX ; Start 01/11/17 at 12:00; Stop at 12:00; Status DC Hydroxyzine HCl (Atarax) 10 mg BID PO Last administered on 01/15/17 09:28; Start 01/11/17 at 21:00; Stop 02/10/17 at 20:59 Hydroxyzine HCl (Atarax) 10 mg QID PRN PO ITCHING; Start 01/11/17 at 13:15; Stop 02/10/17 at 13:14 Lactobacillus Acidophilus (Bacid) 1 ea TID PO Last administered on 01/15/17 09: 28; Start 01/13/17 at 09:00; Stop 02/12/17 at 08:59 Levofloxacin (Levaquin) 250 mg DAILY@06 PO Last administered on 01/15/17 05:44 ; Start 01/15/17 at 06:00; Stop 01/22/17 at 05:59 Levofloxacin 250 mg/IV Miscellaneous Supplies 50 ml @ 50 mls/hr Q24H IV Last administered on 01/14/17 12:40; Start 01/12/17 at 12:00; Stop 01/14/17 at 12:49; Status DC Levothyroxine Sodium (Synthroid) 137 mcg DAILY@0600 PO Last administered on 01/15 05:44; Start 01/12/17 at 06:00; Stop 02/11/17 at 05:59 Magnesium Gluconate (Magnesium Gluconate) 500 mg BID PO Last administered on 09:28; Start 01/11/17 at 21:00; Stop 02/10/17 at 20:59 Nystatin (Mycostatin Powder, Nystop) 1 dose BID TOP Last administered on 09:29; Start 01/12/17 at 09:00; Stop 02/11/17 at 08:59 Ondansetron HCl (Zofran Odt) 4 mg TID PRN PO NAUSEA; Start 01/11/17 at 13:15; Stop 02/10/17 at 13:14 Oxycodone/ Acetaminophen (Percocet 5mg/ 325mg Tablet) 1 tab Q12HP PRN PO PAIN Last administered on 01/13/17 21:07; Start 01/11/17 at 13:15; Stop 01/18/17 at 13: 14 Potassium Chloride (Micro-K Extencaps) 10 meq DAILY PO Last administered on 01/15 09:28; Start 01/12/17 at 09:00; Stop 02/11/17 at 08:59 Rosuvastatin Calcium (Crestor) 40 mg DAILY PO Last administered on 01/15/17t 09: 28; Start 01/12/17 at 09:00; Stop 02/11/17 at 08:59 Zinc Oxide (Zinc Oxide 20% Oint) 1 dose TID PRN TOP REDNESS/IRRITATION; Start 01/11/17 at 13:15; Stop 02/10/17 at 13:14 Allergies Allergies: Coded Allergies: Phenobarbital (Verified Allergy, Intermediate, HIVES, 12/29/16) Sulfa Drugs (Verified Allergy, Intermediate, HIVES, 12/29/16) Camphor (Unverified Allergy, Unknown, SKIN BLISTERS, 01/11/17) Carboxymethylcellulose (Unverified Allergy, Unknown, SKIN BLISTERS, 01/11/17 ) Latex (Verified Allergy, Unknown, 12/29/16) Menthol (Unverified Allergy, Unknown, SKIN BLISTERS, 01/11/17) Methyl Salicylate (Unverified Allergy, Unknown, SKIN BLISTERS, 01/11/17) Pineapple (Verified Allergy, Unknown, 12/29/16) TAPE (Verified Allergy, Unknown, 12/29/16) Trolamine Salicylate (Unverified Allergy, Unknown, SKIN BLISTERS, 01/11/17) Clindamycin (Unverified Adverse Reaction, Intermediate, VOMITING, 12/29/16) Review of Systems Constitutional: Denies: Fever, Chills, Sweats, Weakness, Malaise Eyes: Denies: Pain, Vision change Skin: Denies: Rash, Lesions, Breakdown, Nail Changes Pulmonary: Denies: Dyspnea, Cough Cardiovascular: Denies Chest Pain, Denies Palpitations Gastrointestinal: Denies: Nausea, Vomiting, Abdominal Pain Genitourinary: Denies: Dysuria, Frequency, Incontinence, Hematuria Musculoskeletal: Denies: Neck Pain, Back Pain Psych: Reports: Mood Normal Physical Examination General Exam: Alert, No Acute Distress Chest Exam: Clear to auscultation, Normal air movement Heart Exam: Rate Normal, Regular Rhythm Skin Exam: Nl turgor and temperature Psych Exam: Mental status NL, Mood NL Vital Signs/I&O Vital Signs Date Time Temp Pulse Resp B/P (MAP) Pulse Ox O2 Delivery O2 Flow Rate FiO2 01/15/17 06:00 97.3 84 16 108/56 (73) 94 Room Air I&O- Last 24 Hours up to 6 AM 01/15/17 06:00 Intake Total 1360 ml Output Total 2525 ml Balance -1165 ml Laboratory Data 24H Labs Laboratory Tests 2 01/15/17 05:49: White Blood Count 5.1, Red Blood Count 4.16, Hemoglobin 11.4L, Hematocrit 35.6L , Mean Corpuscular Volume 85.6, Mean Corpuscular Hemoglobin 27.4, Mean Corpuscular Hemoglobin Concent 32.0, Red Cell Distribution Width 15.1H, Platelet Count 345, Neutrophils (%) (Auto) 49.0, Lymphocytes (%) (Auto) 33.3, Monocytes (%) (Auto) 9.9H, Eosinophils (%) (Auto) 4.5H, Basophils (%) (Auto) 0.7 , Neutrophils # (Auto) 2.5, Lymphocytes # (Auto) 1.8, Monocytes # (Auto) 0.5, Eosinophils # (Auto) 0.2, Basophils # (Auto) 0.0, Large Unclassified Cells % 2.6 , Large Unclassified Cells # 0.1, Anion Gap 8, Glomerular Filtration Rate > 60.0 , Blood Urea Nitrogen 17, Creatinine 0.85, Sodium Level 142, Potassium Level 4.1 , Chloride Level 109H, Carbon Dioxide Level 25, Calcium Level 9.8, Aspartate Amino Transf (AST/SGOT) 7L, Alanine Aminotransferase (ALT/SGPT) 11L, Alkaline Phosphatase 62, Total Bilirubin 0.3, Total Protein 6.8, Albumin 2.5L, Albumin/ Globulin Ratio 0.58L CBC/BMP Laboratory Tests 01/15/17 05:49 Red Blood Count 4.16, Mean Corpuscular Volume 85.6, Mean Corpuscular Hemoglobin 27.4, Mean Corpuscular Hemoglobin Concent 32.0, Red Cell Distribution Width 15.1 H, Neutrophils (%) (Auto) 49.0, Lymphocytes (%) (Auto) 33.3, Monocytes (%) (Auto) 9.9 H, Eosinophils (%) (Auto) 4.5 H, Basophils (%) (Auto) 0.7, Neutrophils # (Auto) 2.5, Lymphocytes # (Auto) 1.8, Monocytes # (Auto) 0.5, Eosinophils # (Auto) 0.2, Basophils # (Auto) 0.0, Calcium Level 9.8, Aspartate Amino Transf (AST/SGOT) 7 L, Alanine Aminotransferase (ALT/SGPT) 11 L, Alkaline Phosphatase 62, Total Bilirubin 0.3, Total Protein 6.8, Albumin 2.5 L Microbiology Microbiology 01/11/17 Blood Culture - Preliminary, Resulted No Growth after 72 hours. All specime... 01/11/17 Blood Culture - Preliminary, Resulted No Growth after 72 hours. All specime... 01/13/17 Clostridium difficile (PCR) - Final, Complete Assessment This is a 76 y/o F w/ a left staghorn calculus who was planned for a PCNL on Thursday. After a discussion w/ the patient, we have decided to treat her stone w / staged ureteroscopies. Therefore on Thursday we will plan to take her to the OR for cystoscopy, left ureteroscopy w/ laser lithotripsy, and left ureteral stent exchange. After a discussion of the risks and benefits of surgery, informed consent was signed. The patient understands that any stones not removed during surgery on Thursday will have to be removed during a subsequent surgery. Plan - informed consent signed for cystoscopy, left ureteroscopy w/ laser lithotripsy , and left ureteral stent exchange - plan for surgery on Thursday - cont rocephin and levaquin - NPO at midnight Thursday in prep for surgery on Thursday LÁZARO JENNINGS MD Jan 15, 2017 13:57
[2017-01-15 14:00] VITALS: BP 129/53
--- NOTE | 2017-01-15 15:00 | IPN ---
DATE: 01/15/2017 The patient seen and examined. Denies any fevers, chills, chest pain, pressure or discomfort. VITAL SIGNS: Temperature 97.3, pulse 84, respiration 16, blood pressure 108/56, pulse ox 94% in room air. LABORATORY: WBC 5.1, hemoglobin and hematocrit 11.4/35/6, platelets 345. Chemistry: Sodium 142, potassium 4.1, chloride 109, bicarbonate 25, BUN 17, creatinine 0.85 PHYSICAL EXAMINATION: GENERAL: The patient is alert, oriented times three in no acute distress. Obese. HEENT Normocephalic atraumatic. Pupils equal, round, and reactive. NECK: Supple. Nontender. PULMONARY: Bilateral clear to auscultation. CARDIAC: Regular rate and rhythm. Normal S1, S2. ABDOMEN: Soft, nontender. Positive bowel sounds. EXTREMITIES: Trace edema bilateral lower extremities. Venostasis skin changes. Left knee mildly tender to manipulation. ASSESSMENT/PLAN: This is a 76-year-old female patient with underlying medical history of hypertension, hypothyroidism, bilateral lower extremity venostasis, chronic lymph edema, history of methicillin resistant Staphylococus aureus (MRSA), recurrent cellulitis, dyslipidemia, history of urinary tract infection, with left staghorn calculus sees Dr. Cheung. Status post fall at assisted living twisted her knee PROBLEM: 1. Left knee sprain: Consulted orthopedics. Expertise appreciated from Dr. Lalo Luo has assessed the patient. Weightbearing as tolerated. Pain regimen as prescribed. 2. Urinary tract infection with pyelonephritis with staghorn calculus. The case discussed with Dr. Cheung who was consulted. Recommended nephrostomy tube with possible cystoscopy and lithotripsy on Thursday. Continue Rocephin and Levaquin. Last day on January 18, 2017. Further management as per Dr. Cheung. The patient refusing infectious disease consultation. 3. Hypertension: Continue current medication. 4. Hypothyroidism: Continue current medication. Thyroid function appreciated. Need outpatient followup. 5. Obesity complicating care. 6. Bilateral lower extremity venostasis ulcer: Outpatient followup, leg elevation. 7. Dyslipidemia: Continue current medication. Poor compliance. 8. Poor compliance: The patient was very particular about her care and has been adamant about staying here until her surgery on Thursday. 9. Diarrhea: C difficile has been negative. Probiotic is ordered. 10. Deep venous thrombosis prophylaxis: Lovenox subcutaneously. DISPOSITION PLANNING: Pending clinical improvement. Further management by urologist, physical therapy. Patient is very particular about her care and is poorly compliant and wished to stay in the hospital until her procedure.
[2017-01-15 22:00] VITALS: BP 118/57
[2017-01-16] MEDS: IPRATROPIUM 0.5MG/ALBUTEROL 2.5MG INH SOL UD 3ML (DUONEB)(J7620) NEB SCH ×4 (01:42→19:32)
[2017-01-16] MEDS: LevoFLOXacin 250 MG TABLET PO SCH (05:43)
[2017-01-16] MEDS: LEVOTHYROXINE 137MCG TABLET (0.137MG) PO SCH (05:43)
[2017-01-16 06:00] VITALS: BP 95/53
[2017-01-16 07:00] LABS: ALBUMIN 2.5 GM/DL (3.2-5.2); ALBUMIN/GLOBULIN RATIO 0.63 (1.00-1.93); BILIRUBIN,TOTAL 0.3 MG/DL (0.2-1.0); CALCIUM LEVEL 9.6 MG/DL (8.8-10.2); CREATININE FOR GFR 0.98 MG/DL (0.55-1.02); GLOMERULAR FILTRATION RATE 58.4 (>39); POTASSIUM SERUM 4.5 MEQ/L (3.5-5.1); TOTAL PROTEIN 6.5 GM/DL (6.4-8.2)
[2017-01-16 07:17] LABS: BASO % 0.9 % (0.0-1.0); EOS # 0.2 K/mm3 (0.0-0.50); EOS % 3.5 % (0.0-3.0); LARGE UNSTAINED CELL # 0.2 K/mm3 (0.0-0.4); LARGE UNSTAINED CELL % 3.5 % (0.0-4.0); LYMPH # 2.1 K/mm3 (1.5-4.5); LYMPH % 35.4 % (24.0-44.0); MEAN CORPUSCULAR HEMOGLOBIN 27.6 pg (27.0-33.0); MEAN CORPUSCULAR HGB CONC 31.9 g/dl (32.0-36.5); MEAN CORPUSCULAR VOLUME 86.5 fl (80.0-96.0); MONO # 0.5 K/mm3 (0.0-0.8); MONO % 9.8 % (0.0-5.0); NEUTROPHILS # 2.5 K/mm3 (1.8-7.7); NEUTROPHILS % 46.8 % (36.0-66.0); PLATELET COUNT, AUTOMATED 324 k/mm3 (150-450); WHITE BLOOD COUNT 5.4 K/mm3 (4.0-10.0)
[2017-01-16] MEDS: ASPIRIN 81 MG ENTERIC TAB PO SCH (09:00)
[2017-01-16] MEDS: ENOXAPARIN 40 MG/0.4 ML SYRINGE (J1650) SC SCH (10:02)
[2017-01-16] MEDS: NYSTATIN 100,000 UNITS/GM TOPICAL PWD 15 GM TOP SCH ×2 (10:02→21:56)
[2017-01-16] MEDS: cefTRIAXone SOD 2 GM in D5W MINI-BAG PLUS 50 ML IV SCH (10:02)
[2017-01-16] MEDS: ROSUVASTATIN 10 MG TAB (CRESTOR) PO SCH (10:03)
[2017-01-16] MEDS: LACTOBACILLUS ACIDOPHILUS CAP (BACID) PO SCH ×3 (10:03→21:53)
[2017-01-16] MEDS: MAGNESIUM GLUCONATE 500 MG TAB PO SCH ×2 (10:04→21:53)
[2017-01-16] MEDS: POTASSIUM CHLORIDE 10 MEQ SR TABLET PO SCH (10:04)
[2017-01-16] MEDS: hydrOXYzine 10 MG TAB PO SCH ×2 (10:04→21:53)
[2017-01-16 14:00] VITALS: BP 113/57
[2017-01-16] MEDS: PERCOCET 5MG/325MG TAB PO PRN (21:55)
[2017-01-16 22:00] VITALS: BP 100/53
--- NOTE | 2017-01-16 22:49 | IPN ---
DATE: 01/16/2017 The patient was seen and examined. No acute events overnight. Reported slightly worsening left knee pain. Has refused further evaluation by Dr. Lalo Luo for the time being, stating that she probably just slept in a different position. Refused further examination by provider, stating that touching it will make it feel worse. Denies any fevers, chills, chest pain, pressure, or discomfort. VITAL SIGNS: Temperature 97.5, pulse 76, respirations 20, blood pressure 95/53, pulse oximetry 93% on room air. LABORATORY: WBC 5.4, hemoglobin and hematocrit 11.4/35.9, platelets 324. Chemistry: Sodium 142, potassium 4.5, chloride 109, bicarbonate 26, BUN 16, creatinine 0.98. PHYSICAL EXAMINATION: GENERAL: The patient is alert, oriented times three in no acute distress. Obese. HEENT Normocephalic atraumatic. Pupils equal, round, and reactive. NECK: Supple. Nontender. PULMONARY: Bilateral clear to auscultation. CARDIAC: Regular rate and rhythm. Normal S1, S2. ABDOMEN: Soft, nontender. Positive bowel sounds. EXTREMITIES: Trace edema bilateral lower extremities. Venous stasis skin changes. Refusing further examination, as per patient due to pain. Even when encouraged, the patient has refused and furthermore the patient refused further evaluation during this hospitalization by Dr. Lalo Luo. The patient also refused further imaging stating that the pain will get better. ASSESSMENT/PLAN: This is a 76-year-old female patient with underlying medical history of hypertension, hypothyroidism, bilateral lower extremity venous stasis, chronic lymphedema, history of methicillin resistant Staphylococus aureus (MRSA), recurrent cellulitis, dyslipidemia, history of urinary tract infection, with left staghorn calculus, sees Dr. Cheung. Status post fall at assisted living and twisted her knee PROBLEM: 1. Left knee sprain. Consulted orthopedics. Appreciate from Dr. Lalo Luo's assistance. Weightbearing as tolerated. Pain regimen as prescribed. 2. Urinary tract infection with pyelonephritis with staghorn calculus. The case was discussed with Dr. Cheung who was consulted. Recommended nephrostomy tube with possible cystoscopy and lithotripsy on Thursday. Continue Rocephin and Levaquin. Last day on January 18, 2017. Further management as per Dr. Cheung. The patient refusing infectious disease consultation. 3. Hypertension. Continue current medication. 4. Hypothyroidism. Continue current medication. Thyroid function appreciated. Need outpatient followup. 5. Obesity complicating care. 6. Bilateral lower extremity venous stasis ulcer. Outpatient followup, leg elevation. 7. Dyslipidemia. Continue current medication. Poor compliance. 8. Poor compliance. The patient was very particular about her care and has been adamant about staying in the hospital until her surgery on Thursday. Furthermore, the patient has refused further examination of the patient's left knee, per patient due to pain and also refusing further imaging. Offered orthopedic evaluation. The patient was encouraged and physician was adamant that if the pain does not improve we will ask Dr. Lalo Luo to come for further evaluation. 9. Diarrhea. Clostridium (C) difficile has been negative. Probiotic is ordered. 10. Deep venous thrombosis prophylaxis. Lovenox subcutaneously. DISPOSITION: Pending clinical improvement. Further management by urologist, physical therapy. Patient is very poorly compliant and very particular about her care and potential for complication given the patient has been picking and choosing what tests and evaluations she wants.
[2017-01-17] MEDS: IPRATROPIUM 0.5MG/ALBUTEROL 2.5MG INH SOL UD 3ML (DUONEB)(J7620) NEB SCH ×2 (01:42→07:10)
[2017-01-17] MEDS: LevoFLOXacin 250 MG TABLET PO SCH (05:29)
[2017-01-17] MEDS: LEVOTHYROXINE 137MCG TABLET (0.137MG) PO SCH (05:30)
[2017-01-17 05:54] LABS: BASO # 0.1 K/mm3 (0.0-0.2); BASO % 1.1 % (0.0-1.0); EOS # 0.2 K/mm3 (0.0-0.50); EOS % 3.4 % (0.0-3.0); LARGE UNSTAINED CELL # 0.2 K/mm3 (0.0-0.4); LARGE UNSTAINED CELL % 3.2 % (0.0-4.0); LYMPH # 2.3 K/mm3 (1.5-4.5); LYMPH % 37.5 % (24.0-44.0); MEAN CORPUSCULAR HGB CONC 32.7 g/dl (32.0-36.5); MEAN CORPUSCULAR VOLUME 85.9 fl (80.0-96.0); MONO # 0.5 K/mm3 (0.0-0.8); MONO % 8.8 % (0.0-5.0); NEUTROPHILS # 2.6 K/mm3 (1.8-7.7); PLATELET COUNT, AUTOMATED 343 k/mm3 (150-450); WHITE BLOOD COUNT 5.6 K/mm3 (4.0-10.0)
[2017-01-17 06:00] VITALS: BP 121/59
[2017-01-17 06:20] LABS: ALBUMIN 2.5 GM/DL (3.2-5.2); ALBUMIN/GLOBULIN RATIO 0.6 (1.00-1.93); BILIRUBIN,TOTAL 0.2 MG/DL (0.2-1.0); CALCIUM LEVEL 9.6 MG/DL (8.8-10.2); CREATININE FOR GFR 0.98 MG/DL (0.55-1.02); GLOMERULAR FILTRATION RATE 58.4 (>39); POTASSIUM SERUM 4.1 MEQ/L (3.5-5.1); TOTAL PROTEIN 6.7 GM/DL (6.4-8.2)
[2017-01-17] MEDS: MAGNESIUM GLUCONATE 500 MG TAB PO SCH ×2 (10:47→21:49)
[2017-01-17] MEDS: LACTOBACILLUS ACIDOPHILUS CAP (BACID) PO SCH ×3 (10:47→21:49)
[2017-01-17] MEDS: hydrOXYzine 10 MG TAB PO SCH ×2 (10:47→21:49)
[2017-01-17] MEDS: cefTRIAXone SOD 2 GM in D5W MINI-BAG PLUS 50 ML IV SCH (10:47)
[2017-01-17] MEDS: ROSUVASTATIN 10 MG TAB (CRESTOR) PO SCH (10:47)
[2017-01-17] MEDS: ASPIRIN 81 MG ENTERIC TAB PO SCH (10:48)
[2017-01-17] MEDS: POTASSIUM CHLORIDE 10 MEQ SR TABLET PO SCH (10:48)
[2017-01-17] MEDS: NYSTATIN 100,000 UNITS/GM TOPICAL PWD 15 GM TOP SCH ×2 (10:48→21:50)
[2017-01-17 14:00] VITALS: BP 128/58
--- NOTE | 2017-01-17 15:20 | IPN ---
DATE OF SERVICE: 01/17/2017 Patient seen and examined. Reported left knee pain to be much improved, but continued to not letting the physician examine. Reported able to ambulate with crutch. Denies any chest pain, pressure, discomfort, fevers or chills. VITAL SIGNS: Temperature 97.8, pulse 86, respirations 18, blood pressure 121/59, pulse oximetry 92% on room air. LABORATORY: WBC 5.6, hemoglobin and hematocrit (H and H) 11.7/35.7, platelets 343. Chemistry: Sodium 142, potassium 4.1, chloride 109, bicarbonate 27, BUN 20, creatinine 0.98. PHYSICAL EXAMINATION: Patient alert, oriented times three in no acute distress. HEENT: Normocephalic atraumatic. Pupils are equal, round, and reactive. NECK: Supple. PULMONARY: Bilateral clear to auscultation. CARDIAC: Regular rate and rhythm. Normal S1, S2. ABDOMEN: Soft, nontender. Positive bowel sounds. EXTREMITIES: Trace edema bilateral lower extremities. Bilateral venous stasis skin changes. Refusing further exam, seems to be able to move bilateral lower extremities. ASSESSMENT/PLAN: This is a 76-year-old female patient with underlying medical history of hypertension, hypothyroidism, bilateral lower extremity venous stasis, chronic lymphedema, history of methicillin-resistant Staphylococcus aureus (MRSA), recurrent cellulitis, dyslipidemia, history of urinary tract infection (UTI) with left staghorn calculus, sees Dr. Cheung, status post fall at assisted living and twisted her knee PROBLEM: 1. Left knee sprain. Consulted orthopedics, Dr. Lalo Luo. Weightbearing as tolerated. Pain regimen was ordered. Patient refused further exam of the knee. Reported the pain has improved since yesterday. 2. Urinary tract infection (UTI) with pyelonephritis with staghorn calculus. The case has been discussed with Dr. Cheung who was consulted. Recommends nephrostomy with cystoscopy, would recommend urological procedure on Thursday. Continue Rocephin, Levaquin. Last day of antibiotics 01/18/2017. Further management per Dr. Cheung. Patient refusing infectious disease consultation. 3. Hypertension. Continue current medication. 4. Hypothyroidism. Continue current medication. Thyroid function appreciated. Need outpatient followup. 5. Obesity complicating care. 6. Bilateral lower extremity venous stasis skin changes. Outpatient followup, leg elevation. 7. Dyslipidemia. Continue current medication. Poorly compliant. 8. Poorly compliant. Patient was very particular about her care, has been adamant about staying at the hospital to await for surgery on Thursday. Has refused infectious disease consultation. Has refused further examination of her left knee or asking orthopedic, Dr. Lalo Luo, for reassessment. 9. Diarrhea. Clostridium (C) difficile has been negative. Probiotics ordered. 10. Deep venous thrombosis (DVT) prophylaxis. Lovenox subcutaneously. DISPOSITION PLANNING: Pending clinical improvement. Further management as per urologist.
[2017-01-17 22:00] VITALS: BP 112/52
[2017-01-17] MEDS: PERCOCET 5MG/325MG TAB PO PRN (22:40)
[2017-01-18] MEDS: LevoFLOXacin 250 MG TABLET PO SCH (05:38)
[2017-01-18] MEDS: LEVOTHYROXINE 137MCG TABLET (0.137MG) PO SCH (05:41)
[2017-01-18 06:00] VITALS: BP 107/52
[2017-01-18 06:26] LABS: EOS # 0.3 K/mm3 (0.0-0.50); EOS % 5.2 % (0.0-3.0); LARGE UNSTAINED CELL # 0.2 K/mm3 (0.0-0.4); LARGE UNSTAINED CELL % 2.9 % (0.0-4.0); LYMPH # 2.1 K/mm3 (1.5-4.5); LYMPH % 36.8 % (24.0-44.0); MEAN CORPUSCULAR HEMOGLOBIN 27.7 pg (27.0-33.0); MEAN CORPUSCULAR HGB CONC 32.1 g/dl (32.0-36.5); MEAN CORPUSCULAR VOLUME 86.2 fl (80.0-96.0); MONO # 0.5 K/mm3 (0.0-0.8); MONO % 9.4 % (0.0-5.0); NEUTROPHILS # 2.4 K/mm3 (1.8-7.7); NEUTROPHILS % 44.7 % (36.0-66.0); PLATELET COUNT, AUTOMATED 365 k/mm3 (150-450); WHITE BLOOD COUNT 5.3 K/mm3 (4.0-10.0)
[2017-01-18 06:45] LABS: ALBUMIN 2.6 GM/DL (3.2-5.2); ALKALINE PHOSPHATASE 64 U/L (45-117); ALT/SGPT 14 U/L (12-78); ANION GAP 6 MEQ/L (8-16); AST/SGOT 10 U/L (15-37); BILIRUBIN,TOTAL 0.3 MG/DL (0.2-1.0); BLOOD UREA NITROGEN 22 MG/DL (7-18); CALCIUM LEVEL 9.7 MG/DL (8.8-10.2); CARBON DIOXIDE LEVEL 27 MEQ/L (21-32); CHLORIDE LEVEL 109 MEQ/L (98-107); CREATININE FOR GFR 0.93 MG/DL (0.55-1.02); GLOMERULAR FILTRATION RATE > 60.0 (>39); GLUCOSE, FASTING 91 MG/DL (83-110); POTASSIUM SERUM 4.4 MEQ/L (3.5-5.1); SODIUM LEVEL 142 MEQ/L (136-145); TOTAL PROTEIN 6.9 GM/DL (6.4-8.2)
[2017-01-18] MEDS: ROSUVASTATIN 10 MG TAB (CRESTOR) PO SCH (09:43)
[2017-01-18] MEDS: cefTRIAXone SOD 2 GM in D5W MINI-BAG PLUS 50 ML IV SCH (09:43)
[2017-01-18] MEDS: LACTOBACILLUS ACIDOPHILUS CAP (BACID) PO SCH ×3 (09:44→21:10)
[2017-01-18] MEDS: hydrOXYzine 10 MG TAB PO SCH ×2 (09:44→21:11)
[2017-01-18] MEDS: POTASSIUM CHLORIDE 10 MEQ SR TABLET PO SCH (09:44)
[2017-01-18] MEDS: NYSTATIN 100,000 UNITS/GM TOPICAL PWD 15 GM TOP SCH ×2 (09:44→21:11)
[2017-01-18] MEDS: ASPIRIN 81 MG ENTERIC TAB PO SCH (09:44)
[2017-01-18] MEDS: MAGNESIUM GLUCONATE 500 MG TAB PO SCH ×2 (09:44→21:11)
[2017-01-18] MEDS ORDERED: DESITIN TOP PRN (10:45)
--- NOTE | 2017-01-18 12:57 | IPN ---
DATE OF SERVICE: 01/18/2017 The patient seen and examined. No acute events overnight. Reported left knee pain to be much improved. Still refusing further examination. Denies any chest pain, pressure, discomfort. Denies any fevers or chills. VITAL SIGNS: Temperature 98, pulse 70, respiration 18, blood pressure 107/52, pulse oximetry 93% on room air. LABORATORY: WBC 5.3, hemoglobin and hematocrit 11.6/36.2, platelets 365. Chemistry: Sodium 142, potassium 4.4, chloride 109, bicarbonate 27, BUN 22, creatinine 0.93. PHYSICAL EXAMINATION: The patient alert, oriented times three, in no acute distress. HEENT: Normocephalic atraumatic. Pupils are equal, round, and reactive. NECK: Supple. PULMONARY: Bilateral clear. CARDIAC: Regular rate and rhythm. Normal S1, S2. ABDOMEN: Soft, nontender. Positive bowel sounds. EXTREMITIES: Trace edema bilateral lower extremities. Venous stasis skin changes. Refusing further examination but able to move bilateral lower extremities. ASSESSMENT AND PLAN: This is a 76-year-old female patient with underlying medical history of hypertension, hypothyroidism, bilateral lower extremity venous stasis, chronic lymphedema, history of methicillin-resistant Staphylococcus aureus (MRSA), recurrent cellulitis, dyslipidemia, history of urinary tract infection (UTI) with left staghorn calculus, sees Dr. Cheung, status post fall at assisted living, and twisted her knee. PROBLEMS: 1. Left knee sprain. Consulted orthopedics, Dr. Lalo Luo. Weightbearing as tolerated. Pain regimen as ordered. The patient refused further examination of the knee. Reported pain has improved. 2. Urinary tract infection with pyelonephritis with staghorn calculus. The case has been discussed with Dr. Cheung. Urology has been consulted. Likely going for ureteroscopy. Followup urology recommendation. Continue Rocephin and Levaquin. Last day of antibiotics 01/18/2017. Further managements per Dr. Cheung. The patient refusing infectious disease consultation. Insisted on keeping her intravenous (IV) longer than necessary. 3. Hypertension. Continue current medication. 4. Hypothyroidism. Continue current medication. Thyroid function appreciated. Outpatient followup. 5. Obesity, complicating care. 6. Bilateral lower extremity venous stasis skin changes. Outpatient followup, leg elevation. 7. Dyslipidemia. Continue current medication. 8. Poorly compliant. The patient was very particular about her care, has been adamant about staying in the hospital awaiting for the elective procedure on Thursday. Has been refusing physical therapy on multiple occasions. Refusing infectious disease consultation and refused further examination and testing of her left knee or asking orthopedic, Dr. Lalo Luo, for reassessment, stating that she will see him on the outside. 9. Diarrhea. Clostridium (C) difficile has been negative. Probiotics ordered. 10. Deep venous thrombosis (DVT) prophylaxis. Lovenox subcutaneously. DISPOSITION PLANNING: Pending clinical improvement.
[2017-01-18 14:00] VITALS: BP 126/58
[2017-01-18 22:00] VITALS: BP 123/53
[2017-01-18] MEDS: PERCOCET 5MG/325MG TAB PO PRN (22:34)
[2017-01-19] VITALS (11 sets, daily range): BP systolic 108–140; BP diastolic 51–80
[2017-01-19] MEDS: PERCOCET 5MG/325MG TAB PO PRN ×2 (03:55→22:31)
[2017-01-19] MEDS: LEVOTHYROXINE 137MCG TABLET (0.137MG) PO SCH (05:30)
[2017-01-19] MEDS: LevoFLOXacin 250 MG TABLET PO SCH (05:31)
[2017-01-19 06:02] LABS: MEAN CORPUSCULAR HEMOGLOBIN 27.9 pg (27.0-33.0); WHITE BLOOD COUNT 5.2 K/mm3 (4.0-10.0)
[2017-01-19 06:14] LABS: ANION GAP 4 MEQ/L (8-16); BLOOD UREA NITROGEN 24 MG/DL (7-18); CALCIUM LEVEL 9.7 MG/DL (8.8-10.2); CARBON DIOXIDE LEVEL 26 MEQ/L (21-32); CHLORIDE LEVEL 110 MEQ/L (98-107); CREATININE FOR GFR 0.91 MG/DL (0.55-1.02); GLOMERULAR FILTRATION RATE > 60.0 (>39); GLUCOSE, FASTING 93 MG/DL (83-110); MAGNESIUM LEVEL 2.3 MG/DL (1.8-2.4); POTASSIUM SERUM 4.1 MEQ/L (3.5-5.1); SODIUM LEVEL 140 MEQ/L (136-145)
[2017-01-19] MEDS: ASPIRIN 81 MG ENTERIC TAB PO SCH (09:00)
[2017-01-19] MEDS: ENOXAPARIN 30 MG/0.3 ML SYR (J1650) SC SCH (09:00)
[2017-01-19] MEDS: LACTOBACILLUS ACIDOPHILUS CAP (BACID) PO SCH ×3 (09:00→20:58)
[2017-01-19] MEDS ORDERED: fentaNYL 100 MCG/2 ML INJECTION (J3010) ONE (09:09)
[2017-01-19] MEDS ORDERED: MIDAZOLAM INJ 2 MG/2 ML VIAL (J2250) ONE (09:09)
[2017-01-19] MEDS: cefTRIAXone SOD 2 GM in D5W MINI-BAG PLUS 50 ML IV SCH (09:56)
[2017-01-19] MEDS: POTASSIUM CHLORIDE 10 MEQ SR TABLET PO SCH (09:57)
[2017-01-19] MEDS: hydrOXYzine 10 MG TAB PO SCH ×2 (09:57→20:58)
[2017-01-19] MEDS: ROSUVASTATIN 10 MG TAB (CRESTOR) PO SCH (09:57)
[2017-01-19] MEDS: NYSTATIN 100,000 UNITS/GM TOPICAL PWD 15 GM TOP SCH ×2 (09:58→20:58)
[2017-01-19] MEDS: MAGNESIUM GLUCONATE 500 MG TAB PO SCH ×2 (10:46→20:58)
--- NOTE | 2017-01-19 13:27 | IPNPDOC ---
Assessment/Plan Date Seen The patient was seen on 01/19/17. Patient Summary This is a 76 y/o F w/ a left staghorn calculus admitted for a sprained knee. Plan for OR today for cystoscopy, left ureteroscopy w/ laser lithotripsy, and left ureteral stent exchange. Plan/VTE VTE Prophylaxis Ordered?: Yes VTE Exclusion Mechanical Proph: N/A:VTE Prophy Ordered Plan - OR for cystoscopy, left ureteroscopy w/ laser lithotripsy, and left ureteral stent exchange - NPO until OR - ok for discharge from urologic standpoint after surgery Subjective Review oF Systems Chief Complaint The patient is a 76-year-old female admitted with a reason for visit of Knee Sprain,Uti. Events since Last Encounter No acute events. Denies pain. No f/c/ns. Objective Physical Examination General Exam: Alert, Cooperative, No Acute Distress Chest Exam: Clear to auscultation Heart Exam: Positive: Rate Normal, Regular Rhythm Skin Exam: Nl turgor and temperature Neuro Exam: Normal Speech Psych Exam: Mental status NL Vital Signs/I&O Vital Signs Date Time Temp Pulse Resp B/P (MAP) Pulse Ox O2 Delivery O2 Flow Rate FiO2 01/19/17 09:21 96.7 68 18 121/63 (82) 95 Room Air I&O- Last 24 Hours up to 6 AM 01/19/17 06:00 Intake Total 1010 ml Output Total 800 ml Balance 210 ml Laboratory Data Labs 24H Laboratory Tests 2 01/19/17 05:35: Anion Gap 4L, Glomerular Filtration Rate > 60.0, Blood Urea Nitrogen 24H, Creatinine 0.91, Sodium Level 140, Potassium Level 4.1, Chloride Level 110H, Carbon Dioxide Level 26, Calcium Level 9.7, Magnesium Level 2.3 CBC/BMP Laboratory Tests 01/19/17 05:35 Red Blood Count 4.22, Mean Corpuscular Volume 87.0, Mean Corpuscular Hemoglobin 27.9, Mean Corpuscular Hemoglobin Concent 32.0, Red Cell Distribution Width 15.0 H, Calcium Level 9.7 Microbiology Microbiology 01/11/17 Blood Culture - Final, Complete NO GROWTH AFTER 5 DAYS 01/11/17 Blood Culture - Final, Complete NO GROWTH AFTER 5 DAYS 01/13/17 Clostridium difficile (PCR) - Final, Complete LÁZARO JENNINGS MD Jan 19, 2017 13:27
[2017-01-19] MEDS ORDERED: LR 1,000 ML IV SCH (16:30)
[2017-01-19] MEDS ORDERED: fentaNYL 100 MCG/2 ML INJECTION (J3010) IV PRN (16:30)
[2017-01-19] MEDS ORDERED: ONDANSETRON 4MG/2ML VIAL (J2405) IV PRN (16:30)
--- NOTE | 2017-01-19 16:39 | REP ---
Retrograde pyelogram: Three views: History: Nephrolithiasis. 26 seconds of fluoroscopy time is reported. Findings: A sequence of three fluoroscopically obtained last image hold spot radiographs of the left abdomen document left ureteral cannulation, guidewire manipulation, contrast injection, and double pigtail left ureteral stent placement. Signed by Manuel Cardenas MD 01/19/2017 04:40 P
--- NOTE | 2017-01-19 20:10 | IPN ---
DATE: 01/19/2017 Patient seen and examined. No acute events overnight. Reported left knee pain to be improved, still refusing exam. The patient has been argumentative about nothing by mouth (n.p.o.) for procedures, stating that she will drink whatever she wants to drink. Further counseling was offered. The patient denies any chest pain, pressure or discomfort. Denies any shortness of breath. The patient further stated that for previous procedures, she always drinks and eats stuff at home and comes in for procedures and she has been okay. Counseling of aspiration has been provided, but the patient seems to be not in agreement with the providers. VITAL SIGNS: Temperature 97.7, pulse 70, respirations 18, blood pressure 145/63, pulse oximetry 94% on room air. LABORATORY: WBC 5.2, hemoglobin and hematocrit 11.8/36.8, platelets 346. Chemistry: Sodium 140, potassium 4.1, chloride 110, bicarbonate 26, BUN 24, creatinine 0.9. PHYSICAL EXAMINATION: GENERAL: Patient alert and oriented times three, in no acute distress. Obese. HEENT: Normocephalic, atraumatic. Pupils equal, round and reactive bilaterally. NECK: Supple. PULMONARY: Bilaterally clear. CARDIAC: Regular rate and rhythm. Normal S1, S2. ABDOMEN: Soft, nontender, positive bowel sounds. EXTREMITIES: Trace edema bilateral lower extremities. Venous stasis skin changes, refusing further exam of patient's knee given patient reported that examination has been tender for her, and she has refused. 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 Cheung, status post fall at assisted living, twisted her knee. Problems: 1. Left knee sprain. Consulted orthopedics, Dr. Lola Luo. Weightbearing as tolerated. Pain regimen as ordered. Patient refused further examination of the knee and refused further evaluation by Dr. Lola Luo. Recommend outpatient followup, pain regimen is prescribed. Patient stated symptoms have improved, physical therapy. 2. Urinary tract infection (UTI) with pyelonephritis and staghorn calculus. Case discussed with urology, status post urological procedure with cystoscopy and stent placement. As per urology, okay to be discharged once the patient is medically cleared. Will complete Rocephin and Levaquin during this hospitalization. Patient refused infectious disease consultation. 3. Hypertension. Continue current medications. 4. Hypothyroidism. Continue current medication. Thyroid function appreciated. Outpatient followup. 5. Obesity, complicating care. 6. Bilateral lower extremity venous stasis skin changes. Outpatient followup and leg elevation. 7. Dyslipidemia. Continue current medication. Poor compliance. The patient is very particular about her care, has been refusing different interventions from time to time during this hospitalization. Counseling was provided. 8. Diarrhea. Clostridium difficile has been negative. Probiotics ordered. 9. Deep vein thrombosis (DVT) prophylaxis. Lovenox subcu. DISPOSITION PLANNING: Pending clinical improvement, physical therapy.
[2017-01-20 02:30] VITALS: BP 105/52
[2017-01-20] MEDS: LevoFLOXacin 250 MG TABLET PO SCH (05:39)
[2017-01-20] MEDS: LEVOTHYROXINE 137MCG TABLET (0.137MG) PO SCH (05:39)
[2017-01-20 06:00] VITALS: BP 104/52
[2017-01-20 07:27] LABS: MEAN CORPUSCULAR HEMOGLOBIN 28.5 pg (27.0-33.0); MEAN CORPUSCULAR HGB CONC 32.3 g/dl (32.0-36.5); MEAN CORPUSCULAR VOLUME 88.1 fl (80.0-96.0); RED CELL DISTRIBUTION WIDTH 14.9 % (11.5-14.5); WHITE BLOOD COUNT 6.2 K/mm3 (4.0-10.0)
[2017-01-20 07:40] LABS: ANION GAP 6 MEQ/L (8-16); BLOOD UREA NITROGEN 21 MG/DL (7-18); CALCIUM LEVEL 9.6 MG/DL (8.8-10.2); CARBON DIOXIDE LEVEL 25 MEQ/L (21-32); CHLORIDE LEVEL 108 MEQ/L (98-107); CREATININE FOR GFR 0.94 MG/DL (0.55-1.02); GLOMERULAR FILTRATION RATE > 60.0 (>39); GLUCOSE, FASTING 98 MG/DL (83-110); MAGNESIUM LEVEL 2.5 MG/DL (1.8-2.4); POTASSIUM SERUM 4.1 MEQ/L (3.5-5.1); SODIUM LEVEL 139 MEQ/L (136-145)
[2017-01-20] MEDS: cefTRIAXone SOD 2 GM in D5W MINI-BAG PLUS 50 ML IV SCH (08:20)
[2017-01-20] MEDS: POTASSIUM CHLORIDE 10 MEQ SR TABLET PO SCH (08:20)
[2017-01-20] MEDS: ASPIRIN 81 MG ENTERIC TAB PO SCH (08:20)
[2017-01-20] MEDS: LACTOBACILLUS ACIDOPHILUS CAP (BACID) PO SCH (08:20)
[2017-01-20] MEDS: ENOXAPARIN 30 MG/0.3 ML SYR (J1650) SC SCH (08:20)
[2017-01-20] MEDS: NYSTATIN 100,000 UNITS/GM TOPICAL PWD 15 GM TOP SCH (08:21)
[2017-01-20] MEDS: ROSUVASTATIN 10 MG TAB (CRESTOR) PO SCH (08:21)
[2017-01-20] MEDS: hydrOXYzine 10 MG TAB PO SCH (08:21)
[2017-01-20] MEDS: MAGNESIUM GLUCONATE 500 MG TAB PO SCH (08:21)
[2017-01-20] MEDS ORDERED: LEVA1TAB PO (09:09)
[2017-01-20] MEDS ORDERED: AUGM875T28 PO (09:20)
[2017-01-20 09:35] VITALS: BP 126/53
--- NOTE | 2017-01-20 09:39 | RO ---
DATE OF PROCEDURE: 01/19/2017 PREPROCEDURE DIAGNOSIS: Left kidney stones. POSTPROCEDURE DIAGNOSIS: Left kidney stones. PROCEDURE: Cystoscopy, left ureteroscopy with laser lithotripsy and basket extraction of stones, left retrograde pyelogram with intraoperative interpretation of images, left ureteral stent exchange. SURGEON: Ming Cheung MD FERN PICKER: None. ANESTHESIA: General. OPERATIVE INDICATIONS: This is a 76-year-old female with two large left kidney stones each measuring over 1 cm in size. It has been discussed previously with her the need to treat the stones and we decided on doing staged ureteroscopies with laser lithotripsy. She is here today for her first ureteroscopy to treat her stones. DESCRIPTION OF PROCEDURE: The patient was brought to the operating room, where general anesthesia was induced. Culture specific antibiotics were already infused. She was then placed in the dorsal lithotomy position and prepped and draped in the usual sterile fashion. A rigid cystoscope was then inserted into the urethral meatus and advanced into the bladder. A wire was then advanced up inside the previously placed left ureteral stent. The stent was then removed leaving the wire in place. Next, a ureteral access sheath was then advanced over the wire up into the left collecting system. The stylet was then removed and the wire was secured to the drape to serve as a safety wire. We then examined the left collecting system using a flexible ureteroscope and within the renal pelvis an approximately 1.5 cm sized stone was seen. Another stone, which was just behind that one was approximately 2 cm in size. At this point, I began lasering the first stone and I kept doing it until it was fragmented into several smaller pieces. All the larger of these pieces had been removed with the basket. Once satisfied that there were no stone fragments in this area that were too large to pass, I then moved on to the second large stone. I fragmented the stone as well into smaller pieces. The smaller fragment was removed, which was about 8 mm. That was removed with a basket. At this point, the patient started having some bleeding within the renal pelvis, making it difficult to see. There was still a large fragment that remained, approximately 1.3 cm in size, and decision was made to leave the rest of the stone and remove it on another date. At this point, a retrograde pyelogram was performed and was notable for mild left hydronephrosis, and no extravasation. At this point, I removed the ureteral access sheath along with the ureteroscope and no additional stones were seen within the ureter. I then utilized the previously placed wire to advance a #7-[place] Islander x 22- 32 cm JJ ureteral stent up into the left collecting system. The wire was then removed, and there were adequate curls of the stent in the right renal pelvis and in the bladder. The bladder was then emptied of all fluid, and this marked the conclusion of the procedure. The patient was then taken out of the dorsal lithotomy position, awakened from anesthesia, and transported to the recovery room in stable condition. ESTIMATED BLOOD LOSS: 0 mL. COMPLICATIONS: None. SPECIMENS: Kidney stone fragments. PLAN: The patient was admitted to the hospital previously due to a sprained knee and she has been receiving physical therapy (PT). She will be sent back up to her room and from a urologic standpoint she can be discharged when she is cleared from her other medical issues. We will need to bring her back to the operating room at some point in the near future for repeat ureteroscopy to try to remove the remainder of the stones. CARMEN
[2017-01-20 10:31] VITALS: BP 126/53
--- NOTE | 2017-01-20 21:33 | DSES ---
DATE OF ADMISSION: 01/11/2017 DATE OF DISCHARGE: 01/20/2017 CONSULTANTS: Dr. Cheung, Dr. Luo, orthopedic surgery SURGICAL INTERVENTION: Cystoscopy with left ureteroscopy with laser lithotripsy, left ureteral stent placement. PRIMARY DISCHARGE DIAGNOSES: 1. Left knee sprain. 2. Urinary tract infection. 3. Pyelonephritis with staghorn calculus, status post lithotripsy and stent placement. 4. Hypertension. 5. Hypothyroidism. 6. Obesity. 7. Bilateral lower extremity chronic venous stasis. 8. Dyslipidemia. 9. Medical noncompliance. 10. Chronic diarrhea. Clostridium difficile negative. DISCHARGE MEDICATIONS: - Levaquin 250 mg by mouth daily, 6 days - Augmentin 875 by mouth twice a day for 7 days - A and D zinc oxide daily as needed - aspirin 81 daily - vitamin D 50,000 units weekly - hydroxyzine 10 mg twice a day, four times a day for needed for pruritus - ibandronate sodium 150 mg every month - Bacid one tablet daily - Leg Cramp Relief one tablet at bedtime - Synthroid 137 mcg daily - magnesium gluconate 500 twice a day - Zofran 4 mg three times a day - Percocet one tablet every 12 as needed - Vaseline to extremities - potassium 10 mEq daily - Crestor 40 daily - zinc oxide one topically three times a day as needed for redness HOSPITAL COURSE: This is a 76-year-old female with history of hypertension, hypothyroidism, bilateral lower extremity chronic venous stasis, chronic lymphedema, history of methicillin-resistant Staphylococcus aureus (MRSA), recurrent cellulitis, dyslipidemia, urinary tract infection (UTI) with left staghorn calculus. Sees Dr. Cheung. Status post a fall at assisted living. Twisted her knee. Patient refused physical exam by Dr. Luo for left knee pain with activity as tolerated and outpatient followup. She was admitted for urinary tract infection with pyelonephritis with staghorn calculus, status post left ureteroscopy, lithotripsy, and stent placement. Patient was started on Rocephin and Levaquin 01/06/2017. Cultures grew out Providencia and pseudomonas. Patient had remained afebrile with no white count. She refused infectious disease consultation. She was kept on her chronic medications for blood pressure and hypothyroidism. She is poorly compliant and asked to be discharged, awaiting physical therapy (PT) clearance. Patient continued to have chronic diarrhea. Clostridium (C) difficile negative. About one to four bowel movements daily. Outpatient followup. LABORATORIES ON DISCHARGE: White count 6.2, hemoglobin 12, hematocrit 38, platelet count 344. Sodium 139, potassium 4, chloride 108, bicarbonate 25, BUN 21, creatinine 0.94, glucose 98. IMAGING STUDIES: Retrograde pyelogram shows double pigtail left ureteral stent placement . Knee x-ray on 01/11/2017. No obvious acute fracture or dislocation. Effusion. FOLLOWUP ISSUES: 1. Patient refused to be examined by orthopedic surgeon, Dr. Lalo Luo. She has a left knee effusion status post fall with no fracture or dislocation. Will need outpatient followup. 2. Left ureteral stent placement due to staghorn calculus. Complete antibiotics. Followup with Dr. Cheung as outpatient within a week of discharge. TIME SPENT ON DISCHARGE: 30 minutes. NELLAD
== END 2017-01-20 12:09 | disposition home or self-care (01) | DRG 669 ==
LOC: M ED 09:58 → M ED INP 13:10 → M MSPAV 14:24
PROVIDERS: ADMIT Hospitalist; ATTEND Urology
PROC: 0TF78ZZ Fragmentation in Left Ureter, Via Natural or Artificial Opening Endoscopic (ICD-10-PCS; 2017-01-19)
PROC: 0TP98DZ Removal of Intraluminal Device from Ureter, Via Natural or Artificial Opening Endoscopic (ICD-10-PCS; 2017-01-19)
PROC: 0T767DZ Dilation of Right Ureter with Intraluminal Device, Via Natural or Artificial Opening (ICD-10-PCS; 2017-01-19)
PROC: 0TC78ZZ Extirpation of Matter from Left Ureter, Via Natural or Artificial Opening Endoscopic (ICD-10-PCS; principal; 2017-01-19 13:00)
DX: N10 Acute pyelonephritis (principal); Z68.42 Body mass index [BMI] 45.0-49.9, adult; N20.1 Calculus of ureter; N39.0 Urinary tract infection, site not specified; E66.01 Morbid (severe) obesity due to excess calories; S83.92XA Sprain of unspecified site of left knee, initial encounter; E03.9 Hypothyroidism, unspecified; R19.7 Diarrhea, unspecified; Z91.19 Patient's noncompliance with other medical treatment and regimen; Z79.899 Other long term (current) drug therapy; E78.5 Hyperlipidemia, unspecified; Z79.82 Long term (current) use of aspirin; I87.2 Venous insufficiency (chronic) (peripheral); Z88.2 Allergy status to sulfonamides; Z91.018 Allergy to other foods; Z91.040 Latex allergy status; Z87.891 Personal history of nicotine dependence; W18.30XA Fall on same level, unspecified, initial encounter; Y92.009 Unspecified place in unspecified non-institutional (private) residence as the place of occurrence of the external cause; M17.32 Unilateral post-traumatic osteoarthritis, left knee; Z88.8 Allergy status to other drugs, medicaments and biological substances; I10 Essential (primary) hypertension

== ENCOUNTER → 2017-01-23 | Outpatient (CLI) | payer MEDICARE, MEDICAID ==
[~2017-01-23] MED LIST changes: +LEVA1TAB PO; +LEVO500T3 PO; +ROCE1INJ4 IV; +VASEGEL EXT; +[UNRECOGNIZED DRUG - OTHER] EXT
[2017-01-23 09:48] LABS: BASO # 0.1 K/mm3 (0.0-0.2); BASO % 1.3 % (0.0-1.0); EOS # 0.2 K/mm3 (0.0-0.50); EOS % 3.1 % (0.0-3.0); LARGE UNSTAINED CELL # 0.2 K/mm3 (0.0-0.4); LARGE UNSTAINED CELL % 2.6 % (0.0-4.0); LYMPH # 1.8 K/mm3 (1.5-4.5); LYMPH % 24.3 % (24.0-44.0); MEAN CORPUSCULAR HEMOGLOBIN 27.7 pg (27.0-33.0); MEAN CORPUSCULAR HGB CONC 31.9 g/dl (32.0-36.5); MONO # 0.6 K/mm3 (0.0-0.8); MONO % 7.6 % (0.0-5.0); NEUTROPHILS # 4.5 K/mm3 (1.8-7.7); NEUTROPHILS % 61.2 % (36.0-66.0); PLATELET COUNT, AUTOMATED 385 k/mm3 (150-450); RED CELL DISTRIBUTION WIDTH 14.7 % (11.5-14.5); WHITE BLOOD COUNT 7.3 K/mm3 (4.0-10.0)
[2017-01-23 10:28] LABS: ALBUMIN 3.2 GM/DL (3.2-5.2); BILIRUBIN,TOTAL 0.6 MG/DL (0.2-1.0); CALCIUM LEVEL 9.7 MG/DL (8.8-10.2); GLOMERULAR FILTRATION RATE 57.1 (>39); POTASSIUM SERUM 4.4 MEQ/L (3.5-5.1); TOTAL PROTEIN 7.3 GM/DL (6.4-8.2)
[2017-01-23 10:29] LABS: ALBUMIN/GLOBULIN RATIO 0.78 (1.00-1.93); FREE T4 2.55 NG/DL (0.76-1.46); MAGNESIUM LEVEL 2.4 MG/DL (1.8-2.4)
== END ==
LOC: M LAB 08:46
PROVIDERS: ATTEND Emergency Medicine
DX: I10 Essential (primary) hypertension (principal); L03.116 Cellulitis of left lower limb; E78.2 Mixed hyperlipidemia; E83.42 Hypomagnesemia; E55.9 Vitamin D deficiency, unspecified; R73.01 Impaired fasting glucose; E03.9 Hypothyroidism, unspecified

== ENCOUNTER → 2017-02-23 | Outpatient (CLI) | payer MEDICARE, MEDICAID ==
[2017-02-23 14:08] LABS: MEAN CORPUSCULAR HEMOGLOBIN 27.4 pg (27.0-33.0); MEAN CORPUSCULAR HGB CONC 31.4 g/dl (32.0-36.5); MEAN CORPUSCULAR VOLUME 87.3 fl (80.0-96.0); RED CELL DISTRIBUTION WIDTH 14.7 % (11.5-14.5)
[2017-02-23 14:36] LABS: CALCIUM LEVEL 10.3 MG/DL (8.8-10.2); CREATININE FOR GFR 1.07 MG/DL (0.55-1.02); GLOMERULAR FILTRATION RATE 52.8 (>39)
== END ==
LOC: M SMT 10:45
PROVIDERS: ATTEND Urology
DX: Z01.818 Encounter for other preprocedural examination (principal); N20.0 Calculus of kidney; N39.0 Urinary tract infection, site not specified

== ENCOUNTER 2017-03-02 14:20 | Day surgery (SDC) | payer MEDICARE, MEDICAID ==
[~2017-03-02] VITALS: Ht 152.4 cm; Wt 118.4 kg
[~2017-03-02 14:20] MED LIST changes: +LIDOCAINE 2% INJ 100 MG/5 ML SDV (FOR ANES.) As Ordered ONE; +MIDAZOLAM INJ 2 MG/2 ML VIAL (J2250) As Ordered ONE; +ONDANSETRON 4MG/2ML VIAL (J2405) As Ordered ONE; +PROPOFOL 200 MG/20 ML VIAL As Ordered ONE; +fentaNYL 100 MCG/2 ML INJECTION (J3010) As Ordered ONE
[2017-03-02] MEDS ORDERED: VANCOMYCIN HCL 1,000 MG, VIAL MATE ADAPTER 1 EACH in D5W 250 ML IV ONE (14:30)
[2017-03-02] MEDS ORDERED: LevoFLOXacin IV 500 MG in APPROPRIATE DILUENT 1 EA IV ONE (14:30)
[2017-03-02] MEDS ORDERED: LR 1,000 ML IV ONE (14:30)
[2017-03-02] MEDS ORDERED: ASPIRIN 325 MG TAB As Ordered ONE (17:25)
[2017-03-02] MEDS ORDERED: ASPIRIN 325 MG TAB PO ONE (17:30)
[2017-03-02] MEDS ORDERED: CONRAY-60 60% 50ML VIAL (Q9961) As Ordered ONE (18:52)
[2017-03-02] MEDS ORDERED: MIDAZOLAM INJ 2 MG/2 ML VIAL (J2250) As Ordered ONE (19:27)
[2017-03-02] MEDS ORDERED: PROPOFOL 200 MG/20 ML VIAL As Ordered ONE (19:27)
[2017-03-02] MEDS ORDERED: METOCLOPRAMIDE INJ 10MG/2ML VIAL (J2765) As Ordered ONE (19:27)
[2017-03-02] MEDS ORDERED: ROCURONIUM BROMIDE 50 MG/5 ML VIAL/SYRINGE As Ordered ONE (19:27)
[2017-03-02] MEDS ORDERED: NEOSTIGMINE 1MG/ML 5 ML SYRINGE (J2710) As Ordered ONE (19:31)
[2017-03-02] MEDS ORDERED: GLYCOPYRROLATE INJ 0.2 MG/ML 2 ML VIAL As Ordered ONE (19:31)
[2017-03-02] MEDS ORDERED: PHENYLephrine HCL 500 MCG/5 ML (100MCG/ML) SYRINGE (J2370) As Ordered ONE (19:33)
[2017-03-02] MEDS ORDERED: ePHEDrine SULFATE 25 MG/5 ML(5MG/ML) SYRINGE As Ordered ONE (19:52)
[2017-03-02] MEDS ORDERED: DESFLURANE 240 ML INHALANT As Ordered ONE (19:57)
[2017-03-02] MEDS ORDERED: oxyBUTYnin 5 MG TAB PO PRN (21:30)
[2017-03-02] MEDS ORDERED: PERCOCET 5MG/325MG TAB PO PRN ×2 (21:30)
[2017-03-02] MEDS ORDERED: fentaNYL 100 MCG/2 ML INJECTION (J3010) IV PRN (21:30)
[2017-03-02] MEDS ORDERED: LR 1,000 ML IV SCH (21:30)
[2017-03-02] MEDS ORDERED: ONDANSETRON 4MG/2ML VIAL (J2405) IV PRN (21:30)
[2017-03-02] MEDS ORDERED: MEPERIDINE INJ 25 MG/ML VIAL (J2175) IV PRN (21:30)
[2017-03-02 22:50] VITALS: BP 122/56
--- NOTE | 2017-03-03 09:11 | REP ---
C-ARM VIEWS DURING RETROGRADE PYELOGRAM AND LEFT URETERAL STENT PLACEMENT: Three C-arm views are performed. A catheter, wire and contrast material is seen in the left pelvicaliceal system. A left ureteral stent is placed with the proximal end coiled in the region of the left renal pelvis in the distant end coiled in the region of the urinary bladder. 16 seconds of fluoroscopy time is utilized. Signed by Nicolas Gomez MD 03/03/2017 04:38 P
--- NOTE | 2017-03-04 07:04 | RO ---
DATE OF PROCEDURE: 03/02/2017 PREPROCEDURE DIAGNOSIS: Left kidney stones. POSTPROCEDURE DIAGNOSIS: Left kidney stones. PROCEDURE: Cystoscopy, left ureteroscopy with laser lithotripsy and basket extraction of stones, left retrograde pyelogram with intraoperative interpretation of images, left ureteral stent exchange. SURGEON: Dr. Ming Cheung. CASKET TRIMMER: None. ANESTHESIA: General. OPERATIVE INDICATIONS: This is a 76-year-old female with left kidney stones. She was brought to the operating room recently for the first part of the planned staged ureteroscopy with laser lithotripsy and basket extraction of stones. She was brought back to the operating room today to finish removal of the stones of her left kidney. DESCRIPTION OF PROCEDURE: The patient was brought to the operating room where general anesthesia was induced. Prophylactic antibiotics were infused. She was placed in dorsal lithotomy position, prepped and draped in the usual sterile fashion. A rigid cystoscope was then inserted into the urethral meatus and advanced into the bladder. Once within the bladder, the previously placed stent was seen. A guidewire was advanced along the stent up into the left collecting system. The stent was then removed and the wire placed. We then advanced a ureteral access sheath over the wire into the left collecting system. The wire was then secured to the drape to serve as a safety wire. We then went up the ureteral access sheath with a flexible ureteroscope and within the kidney, two large kidney stones were seen. Both were over 1 cm in size. Both of these stones were fragmented into smaller pieces using 200 Micron laser fiber. All the larger pieces were removed. Once done, there was nothing remaining except for tiny stone fragments that should be small enough to pass. A retrograde pyelogram was performed and was notable for mild hydronephrosis and no extravasation. The ureteroscope was then removed along with the access sheath. No additional stones seen within the ureter. At this point, the previously placed wire was utilized to advance a #7-Pashto x 22-32 cm JJ ureteral stent up to the left collecting system. The wire was then removed and there were adequate curls to the stent in the left renal pelvis and in the bladder. The bladder was emptied of all fluid and this marked the conclusion of the procedure. The patient was then taken out of dorsal lithotomy position, awakened from anesthesia and transported to the recovery room in stable condition. ESTIMATED BLOOD LOSS: 0 mL. COMPLICATIONS: None. SPECIMENS: Kidney stone fragments. PLAN: The patient will followup in the clinic in a few weeks for stent removal. We will get a KUB prior to stent removal to confirm that all the stones are gone. CARMEN
== END 2017-03-02 23:10 | disposition home or self-care (01) ==
LOC: M SDC 14:20
PROVIDERS: ATTEND Urology
DX: N20.0 Calculus of kidney (principal); I10 Essential (primary) hypertension; E78.4 Other hyperlipidemia; E03.9 Hypothyroidism, unspecified; J44.9 Chronic obstructive pulmonary disease, unspecified; Z79.82 Long term (current) use of aspirin; Z98.61 Coronary angioplasty status; Z86.73 Personal history of transient ischemic attack (TIA), and cerebral infarction without residual deficits; Z91.040 Latex allergy status; Z88.2 Allergy status to sulfonamides; Z88.8 Allergy status to other drugs, medicaments and biological substances; Z87.891 Personal history of nicotine dependence; Z85.51 Personal history of malignant neoplasm of bladder; N28.9 Disorder of kidney and ureter, unspecified; Z79.899 Other long term (current) drug therapy
CPT/HCPCS: 52356; 74420; 82360; 88300; C1769; C2617; J1956; J2250; J2370; J2405; J2710; J2765; J3010; J3370; Q9961

== ENCOUNTER → 2017-03-17 | Outpatient (REF) | payer MEDICARE ==
[~2017-03-17] MED LIST changes: -LIDOCAINE 2% INJ 100 MG/5 ML SDV (FOR ANES.) As Ordered ONE; -MIDAZOLAM INJ 2 MG/2 ML VIAL (J2250) As Ordered ONE; -ONDANSETRON 4MG/2ML VIAL (J2405) As Ordered ONE; -PROPOFOL 200 MG/20 ML VIAL As Ordered ONE; -fentaNYL 100 MCG/2 ML INJECTION (J3010) As Ordered ONE
== END ==
LOC: M SMT 12:58
PROVIDERS: ATTEND Urology
DX: N39.0 Urinary tract infection, site not specified (principal)

== ENCOUNTER 2017-06-25 12:33 | Inpatient (IN) | payer MEDICARE ==
[2017-06-25] MEDS: ONDANSETRON 4MG/2ML VIAL (J2405) IV (14:58)
[2017-06-25] MEDS: MORPHINE 4 MG/ML 1ML SYRINGE IV (14:59)
[2017-06-25 15:04] LABS: MEAN CORPUSCULAR HEMOGLOBIN 26.5 pg (27.0-33.0); MEAN CORPUSCULAR HGB CONC 31.8 g/dl (32.0-36.5); MEAN CORPUSCULAR VOLUME 83.5 fl (80.0-96.0); PLATELET COUNT, AUTOMATED 482 10^3/uL (150-450); RED CELL DISTRIBUTION WIDTH 17.3 % (11.5-14.5); WHITE BLOOD COUNT 17.9 10^3/uL (4.0-10.0)
[2017-06-25 15:11] LABS: LEFT SHIFT POS FLAG; POSITIVE MORPH POS FLAG; WBC SCAT POS FLAG
[2017-06-25 15:12] LABS: ADD MANUAL DIFFER YES; DIFF SLIDE NUMBER 254
[2017-06-25 15:31] LABS: BANDS 20 % (< 11); PLATELET CLUMPS SMALL AMT; TOXIC VACUOLATION 1+
[2017-06-25 15:32] LABS: ANISOCYTOSIS 1+
[2017-06-25 16:14] LABS: ALBUMIN 2.4 GM/DL (3.2-5.2); ALBUMIN/GLOBULIN RATIO 0.47 (1.00-1.93); ALKALINE PHOSPHATASE 71 U/L (45-117); ALT/SGPT 9 U/L (12-78); ANION GAP 7 MEQ/L (8-16); AST/SGOT 15 U/L (7-37); BILIRUBIN,DIRECT 0.1 MG/DL (0.0-0.2); BILIRUBIN,TOTAL 0.7 MG/DL (0.2-1.0); BLOOD UREA NITROGEN 32 MG/DL (7-18); CALCIUM LEVEL 9.3 MG/DL (8.8-10.2); CARBON DIOXIDE LEVEL 23 MEQ/L (21-32); CHLORIDE LEVEL 103 MEQ/L (98-107); CREATININE FOR GFR 2.74 MG/DL (0.55-1.02); GLOMERULAR FILTRATION RATE 17.8 (>39); GLUCOSE, FASTING 122 MG/DL (83-110); MAGNESIUM LEVEL 2.1 MG/DL (1.8-2.4); SODIUM LEVEL 133 MEQ/L (136-145); TOTAL PROTEIN 7.5 GM/DL (6.4-8.2)
[2017-06-25 16:15] LABS: POTASSIUM SERUM 5.6 MEQ/L (3.5-5.1)
[2017-06-25] MEDS ORDERED: ONDANSETRON 4MG/2ML VIAL (J2405) IV (16:30)
[2017-06-25] MEDS ORDERED: ACETAMINOPHEN TAB 650MG DOSE (2X325MG) PO (16:30)
[2017-06-25] MEDS ORDERED: MORPHINE 30 MG TAB **MSIR PO (17:45)
[2017-06-25] MEDS ORDERED: NALOXONE INJ 0.4 MG/1 ML VIAL (J2310) IV (17:45)
[2017-06-25] MEDS ORDERED: MORPHINE 2 MG/ML 1ML SYRINGE IV (17:45)
[2017-06-25] MEDS: ALBUTEROL SULFATE 2.5 MG/0.5 ML INH NEB SOLN NEB (17:47)
[2017-06-25] MEDS ORDERED: ZINC OXIDE 20% OINTMENT 60GM TUBE TOP (18:00)
[2017-06-25] MEDS: CALCIUM GLUCONATE 1,000 MG in D5W MINI-BAG PLUS 100 ML IV (19:10)
[2017-06-25] MEDS: DEXTROSE 50% 50 ML SYRINGE IV (19:11)
[2017-06-25] MEDS: SOD POLYSTYRENE SULFONATE SUSP 15 GM/60 ML UD PO (19:11)
[2017-06-25] MEDS: HumuLIN R (REGULAR) INSULIN (NovoLIN R) **100U/ML** PER UNIT IV (19:11)
[2017-06-25] MEDS: CEFTAROLINE FOSAMIL 600 MG in APPROPRIATE DILUENT 1 EA IV (19:12)
[2017-06-25] MEDS ORDERED: hydrOXYzine 10 MG TAB PO (20:30)
[2017-06-25] MEDS: MAGNESIUM GLUCONATE 500 MG TAB PO (21:02)
[2017-06-25] MEDS: ROSUVASTATIN 10 MG TAB (CRESTOR) PO (21:03)
[2017-06-25] MEDS: hydrOXYzine 10 MG TAB PO (21:03)
[2017-06-25] MEDS: MORPHINE 30 MG TAB **MSIR PO (21:50)
[2017-06-25] MEDS: ONDANSETRON 4 MG ORAL DISINTEGRATING TAB (S0181) PO (22:31)
[2017-06-25 23:30] LABS: ANION GAP 11 MEQ/L (8-16); BLOOD UREA NITROGEN 34 MG/DL (7-18); CARBON DIOXIDE LEVEL 21 MEQ/L (21-32); CHLORIDE LEVEL 103 MEQ/L (98-107); CREATININE FOR GFR 2.92 MG/DL (0.55-1.02); GLOMERULAR FILTRATION RATE 16.5 (>39); GLUCOSE, FASTING 108 MG/DL (83-110); POTASSIUM SERUM 4.9 MEQ/L (3.5-5.1); SODIUM LEVEL 135 MEQ/L (136-145)
[2017-06-26] MEDS: DILUENT IV ×2 (06:10→19:43)
[2017-06-26] MEDS: LEVOTHYROXINE 125MCG TABLET (0.125MG) PO (06:10)
[2017-06-26] MEDS: CEFTAROLINE FOSAMIL IV ×2 (06:10→19:43)
[2017-06-26 06:47] LABS: MEAN CORPUSCULAR HEMOGLOBIN 26.2 pg (27.0-33.0); MEAN CORPUSCULAR VOLUME 81.9 fl (80.0-96.0); RED CELL DISTRIBUTION WIDTH 17.1 % (11.5-14.5); WHITE BLOOD COUNT 15.7 10^3/uL (4.0-10.0)
[2017-06-26 06:49] LABS: LEFT SHIFT POS FLAG; POSITIVE MORPH POS FLAG
[2017-06-26 06:50] LABS: ADD MANUAL DIFFER YES; DIFF SLIDE NUMBER 77; PLATELET COUNT, AUTOMATED 371 10^3/uL (150-450)
[2017-06-26 06:54] LABS: ANION GAP 9 MEQ/L (8-16); BLOOD UREA NITROGEN 39 MG/DL (7-18); CALCIUM LEVEL 8.6 MG/DL (8.8-10.2); CARBON DIOXIDE LEVEL 23 MEQ/L (21-32); CHLORIDE LEVEL 103 MEQ/L (98-107); CREATININE FOR GFR 2.92 MG/DL (0.55-1.02); GLOMERULAR FILTRATION RATE 16.5 (>39); GLUCOSE, FASTING 102 MG/DL (83-110); SODIUM LEVEL 135 MEQ/L (136-145)
[2017-06-26 06:57] LABS: POTASSIUM SERUM 5.2 MEQ/L (3.5-5.1)
[2017-06-26] MEDS ORDERED: CEFTAROLINE FOSAMIL 600 MG in APPROPRIATE DILUENT 1 EA IV (07:00)
[2017-06-26 07:13] LABS: ANISOCYTOSIS 1+; BANDS 13 % (< 11); EOSINOPHILS 1 % (0-5)
[2017-06-26] MEDS: MAGNESIUM GLUCONATE 500 MG TAB PO ×2 (09:02→20:21)
[2017-06-26] MEDS: LACTOBACILLUS ACIDOPHILUS CAP (BACID) PO (09:02)
[2017-06-26] MEDS: ASPIRIN 81 MG ENTERIC TAB PO (09:02)
[2017-06-26] MEDS: hydrOXYzine 10 MG TAB PO ×2 (09:02→20:22)
[2017-06-26] MEDS: PERCOCET 5MG/325MG TAB PO (11:05)
[2017-06-26 11:17] LABS: YEAST LIKE CELL URINE AUTO SMALL
[2017-06-26] MEDS ORDERED: SODIUM CHLORIDE 0.9% 1000 ML IV (11:45)
[2017-06-26] MEDS: SODIUM CHLORIDE 0.9% 500 ML IV (11:45)
[2017-06-26 12:35] LABS: LACTIC ACID SEPSIS PROTOCOL 2.9 MMOL/L (0.4-2.0)
[2017-06-26] MEDS: NS 500 ML IV (13:30)
[2017-06-26] MEDS: HEPARIN SOD (PORCINE) 5000 UNITS/ML VIAL SQ ×2 (16:18→22:20)
[2017-06-26] MEDS: MORPHINE 30 MG TAB **MSIR PO ×2 (16:18→20:22)
[2017-06-26] MEDS ORDERED: SLF 3 ML SYR IV (18:15)
[2017-06-26] MEDS: ROSUVASTATIN 10 MG TAB (CRESTOR) PO (20:21)
[2017-06-26] MEDS: CRAMPS PO (20:22)
[2017-06-26] MEDS: SLF 3 ML SYR IV (22:20)
[2017-06-27] MEDS: PERCOCET 5MG/325MG TAB PO ×2 (01:25→21:28)
[2017-06-27] MEDS: LEVOTHYROXINE 125MCG TABLET (0.125MG) PO (05:13)
[2017-06-27] MEDS: HEPARIN SOD (PORCINE) 5000 UNITS/ML VIAL SQ ×3 (05:13→21:26)
[2017-06-27] MEDS: SLF 3 ML SYR IV ×3 (05:13→21:27)
[2017-06-27] MEDS: CEFTAROLINE FOSAMIL IV ×2 (06:19→18:09)
[2017-06-27] MEDS: DILUENT IV ×2 (06:19→18:09)
[2017-06-27] MEDS: LACTOBACILLUS ACIDOPHILUS CAP (BACID) PO (08:26)
[2017-06-27] MEDS: ASPIRIN 81 MG ENTERIC TAB PO (08:27)
[2017-06-27] MEDS: hydrOXYzine 10 MG TAB PO ×2 (08:27→21:26)
[2017-06-27] MEDS: MAGNESIUM GLUCONATE 500 MG TAB PO (08:27)
[2017-06-27 08:30] LABS: MEAN CORPUSCULAR HEMOGLOBIN 26.3 pg (27.0-33.0); MEAN CORPUSCULAR HGB CONC 31.6 g/dl (32.0-36.5); MEAN CORPUSCULAR VOLUME 83.4 fl (80.0-96.0); PLATELET COUNT, AUTOMATED 344 10^3/uL (150-450); RED CELL DISTRIBUTION WIDTH 16.9 % (11.5-14.5); WHITE BLOOD COUNT 11.7 10^3/uL (4.0-10.0)
[2017-06-27 09:28] LABS: ANION GAP 7 MEQ/L (8-16); BLOOD UREA NITROGEN 48 MG/DL (7-18); CALCIUM LEVEL 8.2 MG/DL (8.8-10.2); CARBON DIOXIDE LEVEL 26 MEQ/L (21-32); CHLORIDE LEVEL 103 MEQ/L (98-107); CREATININE FOR GFR 2.43 MG/DL (0.55-1.02); GLOMERULAR FILTRATION RATE 20.4 (>39); GLUCOSE, FASTING 93 MG/DL (83-110); MAGNESIUM LEVEL 2.5 MG/DL (1.8-2.4); POTASSIUM SERUM 4.2 MEQ/L (3.5-5.1); SODIUM LEVEL 136 MEQ/L (136-145)
[2017-06-27 10:59] LABS: LACTIC ACID SEPSIS PROTOCOL 1.3 MMOL/L (0.4-2.0)
[2017-06-27 16:26] LABS: BANDS 7 % (< 11); EOSINOPHILS 2 % (0-5)
[2017-06-27 16:27] LABS: TOXIC VACUOLATION 1+
[2017-06-27 16:28] LABS: BURR CELLS 1+; DIFF SLIDE NUMBER 94
[2017-06-27] MEDS: CRAMPS PO (21:26)
[2017-06-27] MEDS: ROSUVASTATIN 10 MG TAB (CRESTOR) PO (21:26)
[2017-06-27] MEDS: NYSTATIN 100,000 UNITS/GM TOPICAL PWD 15 GM TOP (21:28)
[2017-06-28 04:55] LABS: MEAN CORPUSCULAR HEMOGLOBIN 26.8 pg (27.0-33.0); MEAN CORPUSCULAR HGB CONC 31.5 g/dl (32.0-36.5); PLATELET COUNT, AUTOMATED 324 10^3/uL (150-450); RED CELL DISTRIBUTION WIDTH 17.2 % (11.5-14.5)
[2017-06-28 05:00] LABS: ANION GAP 8 MEQ/L (8-16); BLOOD UREA NITROGEN 22 MG/DL (7-18); CALCIUM LEVEL 7.5 MG/DL (8.8-10.2); CARBON DIOXIDE LEVEL 22 MEQ/L (21-32); CHLORIDE LEVEL 112 MEQ/L (98-107); CREATININE FOR GFR 1.45 MG/DL (0.55-1.02); GLOMERULAR FILTRATION RATE 37.1 (>39); GLUCOSE, FASTING 123 MG/DL (83-110); MAGNESIUM LEVEL 2.2 MG/DL (1.8-2.4); POTASSIUM SERUM 3.8 MEQ/L (3.5-5.1); SODIUM LEVEL 142 MEQ/L (136-145)
[2017-06-28] MEDS: HEPARIN SOD (PORCINE) 5000 UNITS/ML VIAL SQ ×3 (05:28→21:49)
[2017-06-28] MEDS: LEVOTHYROXINE 125MCG TABLET (0.125MG) PO (05:28)
[2017-06-28] MEDS: MORPHINE 30 MG TAB **MSIR PO (05:29)
[2017-06-28] MEDS: SLF 3 ML SYR IV ×3 (05:29→21:49)
[2017-06-28] MEDS: CEFTAROLINE FOSAMIL IV ×2 (06:39→18:00)
[2017-06-28] MEDS: DILUENT IV ×2 (06:39→18:00)
[2017-06-28] MEDS: LACTOBACILLUS ACIDOPHILUS CAP (BACID) PO (10:50)
[2017-06-28] MEDS: hydrOXYzine 10 MG TAB PO ×2 (10:50→20:22)
[2017-06-28] MEDS: ASPIRIN 81 MG ENTERIC TAB PO (10:50)
[2017-06-28] MEDS: ROSUVASTATIN 10 MG TAB (CRESTOR) PO (20:22)
[2017-06-28] MEDS: CRAMPS PO (20:22)
[2017-06-28] MEDS: PERCOCET 5MG/325MG TAB PO (20:23)
[2017-06-29] MEDS: CEFTAROLINE FOSAMIL IV ×2 (06:07→18:31)
[2017-06-29] MEDS: DILUENT IV ×2 (06:07→18:31)
[2017-06-29] MEDS: SLF 3 ML SYR IV ×3 (06:07→22:00)
[2017-06-29] MEDS: LEVOTHYROXINE 125MCG TABLET (0.125MG) PO (06:07)
[2017-06-29] MEDS: HEPARIN SOD (PORCINE) 5000 UNITS/ML VIAL SQ ×3 (06:07→21:43)
[2017-06-29 07:03] LABS: MEAN CORPUSCULAR HEMOGLOBIN 26.6 pg (27.0-33.0); MEAN CORPUSCULAR VOLUME 83.1 fl (80.0-96.0); PLATELET COUNT, AUTOMATED 337 10^3/uL (150-450); RED CELL DISTRIBUTION WIDTH 17.1 % (11.5-14.5); WHITE BLOOD COUNT 9.4 10^3/uL (4.0-10.0)
[2017-06-29 07:37] LABS: ANION GAP 10 MEQ/L (8-16); BLOOD UREA NITROGEN 38 MG/DL (7-18); CALCIUM LEVEL 8.3 MG/DL (8.8-10.2); CARBON DIOXIDE LEVEL 23 MEQ/L (21-32); CHLORIDE LEVEL 107 MEQ/L (98-107); CREATININE FOR GFR 2.07 MG/DL (0.55-1.02); GLOMERULAR FILTRATION RATE 24.6 (>39); GLUCOSE, FASTING 87 MG/DL (83-110); MAGNESIUM LEVEL 2.7 MG/DL (1.8-2.4); POTASSIUM SERUM 4.1 MEQ/L (3.5-5.1); SODIUM LEVEL 140 MEQ/L (136-145)
[2017-06-29] MEDS: hydrOXYzine 10 MG TAB PO ×2 (09:43→21:43)
[2017-06-29] MEDS: ASPIRIN 81 MG ENTERIC TAB PO (09:43)
[2017-06-29] MEDS: PERCOCET 5MG/325MG TAB PO ×2 (09:44→21:44)
[2017-06-29] MEDS: LACTOBACILLUS ACIDOPHILUS CAP (BACID) PO (09:45)
[2017-06-29] MEDS: ONDANSETRON 4 MG ORAL DISINTEGRATING TAB (S0181) PO (09:45)
[2017-06-29] MEDS: MORPHINE 30 MG TAB **MSIR PO (09:52)
[2017-06-29] MEDS: FUROSEMIDE 20 MG/2 ML VIAL (J1940) IV (13:00)
[2017-06-29] MEDS: CRAMPS PO (21:00)
[2017-06-29] MEDS: ROSUVASTATIN 10 MG TAB (CRESTOR) PO (21:43)
[2017-06-30] MEDS: SLF 3 ML SYR IV ×3 (06:39→22:43)
[2017-06-30] MEDS: CEFTAROLINE FOSAMIL IV ×2 (06:40→18:17)
[2017-06-30] MEDS: DILUENT IV ×2 (06:40→18:17)
[2017-06-30] MEDS: HEPARIN SOD (PORCINE) 5000 UNITS/ML VIAL SQ ×3 (06:40→22:41)
[2017-06-30] MEDS: LEVOTHYROXINE 125MCG TABLET (0.125MG) PO (06:40)
[2017-06-30 06:54] LABS: MEAN CORPUSCULAR HEMOGLOBIN 26.1 pg (27.0-33.0); MEAN CORPUSCULAR HGB CONC 31.4 g/dl (32.0-36.5); MEAN CORPUSCULAR VOLUME 83.2 fl (80.0-96.0); PLATELET COUNT, AUTOMATED 362 10^3/uL (150-450); RED CELL DISTRIBUTION WIDTH 17.2 % (11.5-14.5); WHITE BLOOD COUNT 5.8 10^3/uL (4.0-10.0)
[2017-06-30 07:09] LABS: ANION GAP 8 MEQ/L (8-16); BLOOD UREA NITROGEN 35 MG/DL (7-18); CARBON DIOXIDE LEVEL 25 MEQ/L (21-32); CHLORIDE LEVEL 108 MEQ/L (98-107); CREATININE FOR GFR 2.07 MG/DL (0.55-1.02); GLOMERULAR FILTRATION RATE 24.6 (>39); GLUCOSE, FASTING 68 MG/DL (83-110); MAGNESIUM LEVEL 2.8 MG/DL (1.8-2.4); POTASSIUM SERUM 4.1 MEQ/L (3.5-5.1); SODIUM LEVEL 141 MEQ/L (136-145)
[2017-06-30] MEDS: FUROSEMIDE 20 MG/2 ML VIAL (J1940) IV (07:45)
[2017-06-30] MEDS: hydrOXYzine 10 MG TAB PO ×2 (07:46→22:40)
[2017-06-30] MEDS: LACTOBACILLUS ACIDOPHILUS CAP (BACID) PO (07:46)
[2017-06-30] MEDS: ASPIRIN 81 MG ENTERIC TAB PO (07:46)
[2017-06-30] MEDS: PERCOCET 5MG/325MG TAB PO (07:47)
[2017-06-30] MEDS: MORPHINE 30 MG TAB **MSIR PO ×2 (15:17→22:42)
[2017-06-30] MEDS: ROSUVASTATIN 10 MG TAB (CRESTOR) PO (22:41)
[2017-06-30] MEDS: NS 0.45% 1,000 ML IV (22:41)
[2017-06-30] MEDS: CRAMPS PO (22:41)
[2017-06-30] MEDS: EUCERIN 120GM CREAM TOP (22:42)
[2017-07-01] MEDS: DILUENT IV (06:49)
[2017-07-01] MEDS: CEFTAROLINE FOSAMIL IV (06:49)
[2017-07-01] MEDS: SLF 3 ML SYR IV ×3 (06:49→22:30)
[2017-07-01] MEDS: LEVOTHYROXINE 125MCG TABLET (0.125MG) PO (06:49)
[2017-07-01] MEDS: HEPARIN SOD (PORCINE) 5000 UNITS/ML VIAL SQ ×3 (06:50→22:29)
[2017-07-01 07:00] LABS: MEAN CORPUSCULAR HEMOGLOBIN 25.8 pg (27.0-33.0); MEAN CORPUSCULAR HGB CONC 31.4 g/dl (32.0-36.5); MEAN CORPUSCULAR VOLUME 82.2 fl (80.0-96.0); PLATELET COUNT, AUTOMATED 364 10^3/uL (150-450); RED CELL DISTRIBUTION WIDTH 17.2 % (11.5-14.5); WHITE BLOOD COUNT 5.4 10^3/uL (4.0-10.0)
[2017-07-01 07:04] LABS: ANION GAP 9 MEQ/L (8-16); BLOOD UREA NITROGEN 33 MG/DL (7-18); CALCIUM LEVEL 8.7 MG/DL (8.8-10.2); CARBON DIOXIDE LEVEL 25 MEQ/L (21-32); CHLORIDE LEVEL 108 MEQ/L (98-107); GLOMERULAR FILTRATION RATE 24.2 (>39); GLUCOSE, FASTING 66 MG/DL (83-110); MAGNESIUM LEVEL 2.4 MG/DL (1.8-2.4); POTASSIUM SERUM 3.9 MEQ/L (3.5-5.1); SODIUM LEVEL 142 MEQ/L (136-145)
[2017-07-01] MEDS: LACTOBACILLUS ACIDOPHILUS CAP (BACID) PO (10:22)
[2017-07-01] MEDS: NYSTATIN 100,000 UNITS/GM TOPICAL PWD 15 GM TOP (10:22)
[2017-07-01] MEDS: ASPIRIN 81 MG ENTERIC TAB PO (10:22)
[2017-07-01] MEDS: hydrOXYzine 10 MG TAB PO ×2 (10:23→22:29)
[2017-07-01] MEDS: PERCOCET 5MG/325MG TAB PO (10:24)
[2017-07-01] MEDS: EUCERIN 120GM CREAM TOP ×2 (10:25→22:30)
[2017-07-01] MEDS: DOXYCYCLINE HYCLATE 100 MG TAB PO ×2 (15:12→22:29)
[2017-07-01] MEDS: MORPHINE 30 MG TAB **MSIR PO (22:28)
[2017-07-01] MEDS: ROSUVASTATIN 10 MG TAB (CRESTOR) PO (22:29)
[2017-07-01] MEDS: CRAMPS PO (22:29)
[2017-07-02] MEDS: HEPARIN SOD (PORCINE) 5000 UNITS/ML VIAL SQ ×3 (06:35→22:32)
[2017-07-02] MEDS: LEVOTHYROXINE 125MCG TABLET (0.125MG) PO (06:36)
[2017-07-02] MEDS: SLF 3 ML SYR IV ×3 (06:36→22:32)
[2017-07-02] MEDS: MORPHINE 30 MG TAB **MSIR PO (06:36)
[2017-07-02 07:13] LABS: MEAN CORPUSCULAR HEMOGLOBIN 26.3 pg (27.0-33.0); MEAN CORPUSCULAR HGB CONC 31.4 g/dl (32.0-36.5); MEAN CORPUSCULAR VOLUME 83.7 fl (80.0-96.0); PLATELET COUNT, AUTOMATED 366 10^3/uL (150-450); RED CELL DISTRIBUTION WIDTH 16.9 % (11.5-14.5); WHITE BLOOD COUNT 6.2 10^3/uL (4.0-10.0)
[2017-07-02 07:26] LABS: ANION GAP 7 MEQ/L (8-16); BLOOD UREA NITROGEN 29 MG/DL (7-18); CARBON DIOXIDE LEVEL 27 MEQ/L (21-32); CHLORIDE LEVEL 108 MEQ/L (98-107); CREATININE FOR GFR 1.84 MG/DL (0.55-1.02); GLOMERULAR FILTRATION RATE 28.2 (>39); GLUCOSE, FASTING 72 MG/DL (83-110); MAGNESIUM LEVEL 2.1 MG/DL (1.8-2.4); POTASSIUM SERUM 3.9 MEQ/L (3.5-5.1); SODIUM LEVEL 142 MEQ/L (136-145)
[2017-07-02] MEDS: ASPIRIN 81 MG ENTERIC TAB PO (09:40)
[2017-07-02] MEDS: DOXYCYCLINE HYCLATE 100 MG TAB PO ×2 (09:40→22:31)
[2017-07-02] MEDS: LACTOBACILLUS ACIDOPHILUS CAP (BACID) PO (09:40)
[2017-07-02] MEDS: hydrOXYzine 10 MG TAB PO ×2 (09:40→21:00)
[2017-07-02] MEDS: EUCERIN 120GM CREAM TOP ×2 (09:41→22:32)
[2017-07-02] MEDS: NS 0.45% 500 ML IV (13:05)
[2017-07-02] MEDS: PERCOCET 5MG/325MG TAB PO (13:34)
[2017-07-02] MEDS: ROSUVASTATIN 10 MG TAB (CRESTOR) PO (22:30)
[2017-07-02] MEDS: CRAMPS PO (22:31)
[2017-07-03] MEDS: LEVOTHYROXINE 125MCG TABLET (0.125MG) PO (05:54)
[2017-07-03] MEDS: HEPARIN SOD (PORCINE) 5000 UNITS/ML VIAL SQ ×3 (05:54→21:25)
[2017-07-03] MEDS: SLF 3 ML SYR IV ×3 (05:55→21:28)
[2017-07-03 06:51] LABS: MEAN CORPUSCULAR HEMOGLOBIN 26.5 pg (27.0-33.0); MEAN CORPUSCULAR HGB CONC 30.8 g/dl (32.0-36.5); MEAN CORPUSCULAR VOLUME 85.8 fl (80.0-96.0); PLATELET COUNT, AUTOMATED 348 10^3/uL (150-450); RED CELL DISTRIBUTION WIDTH 16.8 % (11.5-14.5); WHITE BLOOD COUNT 6.9 10^3/uL (4.0-10.0)
[2017-07-03 07:13] LABS: ANION GAP 6 MEQ/L (8-16); BLOOD UREA NITROGEN 23 MG/DL (7-18); CALCIUM LEVEL 8.9 MG/DL (8.8-10.2); CARBON DIOXIDE LEVEL 27 MEQ/L (21-32); CHLORIDE LEVEL 107 MEQ/L (98-107); CREATININE FOR GFR 1.64 MG/DL (0.55-1.02); GLOMERULAR FILTRATION RATE 32.2 (>39); GLUCOSE, FASTING 83 MG/DL (83-110); MAGNESIUM LEVEL 1.9 MG/DL (1.8-2.4); POTASSIUM SERUM 3.9 MEQ/L (3.5-5.1); SODIUM LEVEL 140 MEQ/L (136-145)
[2017-07-03] MEDS: LACTOBACILLUS ACIDOPHILUS CAP (BACID) PO (09:19)
[2017-07-03] MEDS: DOXYCYCLINE HYCLATE 100 MG TAB PO ×2 (09:19→21:27)
[2017-07-03] MEDS: ASPIRIN 81 MG ENTERIC TAB PO (09:20)
[2017-07-03] MEDS: NYSTATIN 100,000 UNITS/GM TOPICAL PWD 15 GM TOP (09:21)
[2017-07-03] MEDS: EUCERIN 120GM CREAM TOP ×2 (09:21→21:27)
[2017-07-03] MEDS: hydrOXYzine 10 MG TAB PO (09:23)
[2017-07-03] MEDS: PERCOCET 5MG/325MG TAB PO (13:55)
[2017-07-03] MEDS: ROSUVASTATIN 10 MG TAB (CRESTOR) PO (21:25)
[2017-07-03] MEDS: CRAMPS PO (21:27)
[2017-07-04 06:28] LABS: MEAN CORPUSCULAR HEMOGLOBIN 25.4 pg (27.0-33.0); MEAN CORPUSCULAR HGB CONC 30.2 g/dl (32.0-36.5); MEAN CORPUSCULAR VOLUME 84.2 fl (80.0-96.0); PLATELET COUNT, AUTOMATED 370 10^3/uL (150-450); RED CELL DISTRIBUTION WIDTH 16.9 % (11.5-14.5); WHITE BLOOD COUNT 7.9 10^3/uL (4.0-10.0)
[2017-07-04] MEDS: SLF 3 ML SYR IV ×3 (06:29→21:38)
[2017-07-04] MEDS: LEVOTHYROXINE 125MCG TABLET (0.125MG) PO (06:29)
[2017-07-04] MEDS: HEPARIN SOD (PORCINE) 5000 UNITS/ML VIAL SQ ×3 (06:29→21:35)
[2017-07-04 06:50] LABS: ANION GAP 7 MEQ/L (8-16); BLOOD UREA NITROGEN 18 MG/DL (7-18); CALCIUM LEVEL 9.5 MG/DL (8.8-10.2); CARBON DIOXIDE LEVEL 28 MEQ/L (21-32); CHLORIDE LEVEL 108 MEQ/L (98-107); CREATININE FOR GFR 1.33 MG/DL (0.55-1.02); GLUCOSE, FASTING 85 MG/DL (83-110); MAGNESIUM LEVEL 1.9 MG/DL (1.8-2.4); POTASSIUM SERUM 3.7 MEQ/L (3.5-5.1); SODIUM LEVEL 143 MEQ/L (136-145)
[2017-07-04] MEDS: BISACODYL 5 MG TAB PO (09:28)
[2017-07-04] MEDS: DOXYCYCLINE HYCLATE 100 MG TAB PO ×2 (09:28→21:36)
[2017-07-04] MEDS: LACTOBACILLUS ACIDOPHILUS CAP (BACID) PO (09:28)
[2017-07-04] MEDS: ASPIRIN 81 MG ENTERIC TAB PO (09:28)
[2017-07-04] MEDS: EUCERIN 120GM CREAM TOP ×2 (09:29→21:35)
[2017-07-04] MEDS: ONDANSETRON 4 MG ORAL DISINTEGRATING TAB (S0181) PO (19:53)
[2017-07-04] MEDS: ROSUVASTATIN 10 MG TAB (CRESTOR) PO (21:36)
[2017-07-04] MEDS: CRAMPS PO (21:37)
[2017-07-04] MEDS: POTASSIUM CHLORIDE 10 MEQ SR TABLET PO (21:37)
[2017-07-05] MEDS: LEVOTHYROXINE 125MCG TABLET (0.125MG) PO (05:41)
[2017-07-05] MEDS: SLF 3 ML SYR IV ×3 (05:42→21:28)
[2017-07-05] MEDS: HEPARIN SOD (PORCINE) 5000 UNITS/ML VIAL SQ ×3 (05:42→21:27)
[2017-07-05 08:03] LABS: ALBUMIN 1.9 GM/DL (3.2-5.2); ANION GAP 4 MEQ/L (8-16); BLOOD UREA NITROGEN 14 MG/DL (7-18); CALCIUM LEVEL 9.3 MG/DL (8.8-10.2); CARBON DIOXIDE LEVEL 30 MEQ/L (21-32); CHLORIDE LEVEL 108 MEQ/L (98-107); CREATININE FOR GFR 1.19 MG/DL (0.55-1.02); GLOMERULAR FILTRATION RATE 46.6 (>39); GLUCOSE, FASTING 114 MG/DL (83-110); MEAN CORPUSCULAR HEMOGLOBIN 25.9 pg (27.0-33.0); MEAN CORPUSCULAR HGB CONC 31.5 g/dl (32.0-36.5); MEAN CORPUSCULAR VOLUME 82.4 fl (80.0-96.0); PLATELET COUNT, AUTOMATED 369 10^3/uL (150-450); POTASSIUM SERUM 3.4 MEQ/L (3.5-5.1); RED CELL DISTRIBUTION WIDTH 16.9 % (11.5-14.5); SODIUM LEVEL 142 MEQ/L (136-145); WHITE BLOOD COUNT 8.1 10^3/uL (4.0-10.0)
[2017-07-05] MEDS: MIRALAX *UNIT DOSE* 17GM PACKET PO (09:00)
[2017-07-05] MEDS: LACTOBACILLUS ACIDOPHILUS CAP (BACID) PO (09:19)
[2017-07-05] MEDS: ASPIRIN 81 MG ENTERIC TAB PO (09:19)
[2017-07-05] MEDS: DOXYCYCLINE HYCLATE 100 MG TAB PO ×2 (09:19→21:26)
[2017-07-05] MEDS: POTASSIUM CHLORIDE 10 MEQ SR TABLET PO ×3 (09:19→21:26)
[2017-07-05] MEDS: FUROSEMIDE 40 MG TAB PO (09:19)
[2017-07-05] MEDS: EUCERIN 120GM CREAM TOP ×2 (09:20→21:28)
[2017-07-05] MEDS: ONDANSETRON 4 MG ORAL DISINTEGRATING TAB (S0181) PO (15:55)
[2017-07-05] MEDS: ROSUVASTATIN 10 MG TAB (CRESTOR) PO (21:25)
[2017-07-05] MEDS: CRAMPS PO (21:26)
[2017-07-05] MEDS: PERCOCET 5MG/325MG TAB PO (21:34)
[2017-07-06] MEDS: LEVOTHYROXINE 125MCG TABLET (0.125MG) PO (05:06)
[2017-07-06] MEDS: HEPARIN SOD (PORCINE) 5000 UNITS/ML VIAL SQ ×3 (05:07→20:47)
[2017-07-06] MEDS: SLF 3 ML SYR IV ×4 (05:07→20:54)
[2017-07-06 06:57] LABS: MEAN CORPUSCULAR HGB CONC 31.1 g/dl (32.0-36.5); MEAN CORPUSCULAR VOLUME 83.7 fl (80.0-96.0); PLATELET COUNT, AUTOMATED 431 10^3/uL (150-450); WHITE BLOOD COUNT 7.7 10^3/uL (4.0-10.0)
[2017-07-06 07:26] LABS: ALBUMIN 2.1 GM/DL (3.2-5.2); ANION GAP 7 MEQ/L (8-16); BLOOD UREA NITROGEN 13 MG/DL (7-18); CALCIUM LEVEL 9.2 MG/DL (8.8-10.2); CARBON DIOXIDE LEVEL 29 MEQ/L (21-32); CHLORIDE LEVEL 107 MEQ/L (98-107); CREATININE FOR GFR 1.31 MG/DL (0.55-1.02); GLOMERULAR FILTRATION RATE 41.7 (>39); GLUCOSE, FASTING 89 MG/DL (83-110); PHOSPHORUS LEVEL 1.9 MG/DL (2.5-4.9); POTASSIUM SERUM 3.7 MEQ/L (3.5-5.1); SODIUM LEVEL 143 MEQ/L (136-145)
[2017-07-06] MEDS: MIRALAX *UNIT DOSE* 17GM PACKET PO (09:00)
[2017-07-06] MEDS: LACTOBACILLUS ACIDOPHILUS CAP (BACID) PO (11:45)
[2017-07-06] MEDS: ASPIRIN 81 MG ENTERIC TAB PO (11:45)
[2017-07-06] MEDS: DOXYCYCLINE HYCLATE 100 MG TAB PO ×2 (11:46→20:48)
[2017-07-06] MEDS: POTASSIUM CHLORIDE 10 MEQ SR TABLET PO ×2 (11:46→20:49)
[2017-07-06] MEDS: FUROSEMIDE 40 MG TAB PO (11:46)
[2017-07-06] MEDS: EUCERIN 120GM CREAM TOP ×2 (11:50→20:51)
[2017-07-06] MEDS: PERCOCET 5MG/325MG TAB PO (20:48)
[2017-07-06] MEDS: CRAMPS PO (20:49)
[2017-07-06] MEDS: ROSUVASTATIN 10 MG TAB (CRESTOR) PO (20:49)
[2017-07-06] MEDS: MORPHINE 30 MG TAB **MSIR PO (22:32)
[2017-07-07] MEDS: SLF 3 ML SYR IV ×2 (04:13→13:39)
[2017-07-07] MEDS: LEVOTHYROXINE 125MCG TABLET (0.125MG) PO (05:50)
[2017-07-07] MEDS: HEPARIN SOD (PORCINE) 5000 UNITS/ML VIAL SQ ×3 (05:51→20:57)
[2017-07-07 07:08] LABS: MEAN CORPUSCULAR HEMOGLOBIN 26.1 pg (27.0-33.0); MEAN CORPUSCULAR HGB CONC 31.7 g/dl (32.0-36.5); MEAN CORPUSCULAR VOLUME 82.4 fl (80.0-96.0); PLATELET COUNT, AUTOMATED 391 10^3/uL (150-450); RED CELL DISTRIBUTION WIDTH 16.7 % (11.5-14.5); WHITE BLOOD COUNT 5.2 10^3/uL (4.0-10.0)
[2017-07-07 07:30] LABS: ALBUMIN 1.9 GM/DL (3.2-5.2); ANION GAP 8 MEQ/L (8-16); BLOOD UREA NITROGEN 17 MG/DL (7-18); CALCIUM LEVEL 8.6 MG/DL (8.8-10.2); CARBON DIOXIDE LEVEL 28 MEQ/L (21-32); CHLORIDE LEVEL 106 MEQ/L (98-107); CREATININE FOR GFR 1.31 MG/DL (0.55-1.02); GLOMERULAR FILTRATION RATE 41.7 (>39); GLUCOSE, FASTING 82 MG/DL (83-110); PHOSPHORUS LEVEL 2.5 MG/DL (2.5-4.9); POTASSIUM SERUM 3.4 MEQ/L (3.5-5.1); SODIUM LEVEL 142 MEQ/L (136-145)
[2017-07-07] MEDS: FUROSEMIDE 40 MG TAB PO ×2 (09:00→09:05)
[2017-07-07] MEDS: MIRALAX *UNIT DOSE* 17GM PACKET PO (09:00)
[2017-07-07] MEDS: POTASSIUM CHLORIDE 10 MEQ SR TABLET PO ×4 (09:04→21:06)
[2017-07-07] MEDS: LACTOBACILLUS ACIDOPHILUS CAP (BACID) PO (09:04)
[2017-07-07] MEDS: DOXYCYCLINE HYCLATE 100 MG TAB PO ×2 (09:04→20:58)
[2017-07-07] MEDS: EUCERIN 120GM CREAM TOP ×2 (09:05→20:59)
[2017-07-07] MEDS: ASPIRIN 81 MG ENTERIC TAB PO (09:05)
[2017-07-07] MEDS: ROSUVASTATIN 10 MG TAB (CRESTOR) PO (20:58)
[2017-07-07] MEDS: MORPHINE 30 MG TAB **MSIR PO (20:59)
[2017-07-07] MEDS: CRAMPS PO (20:59)
[2017-07-08] MEDS: PERCOCET 5MG/325MG TAB PO ×2 (00:51→06:13)
[2017-07-08] MEDS: LEVOTHYROXINE 125MCG TABLET (0.125MG) PO (06:12)
[2017-07-08] MEDS: HEPARIN SOD (PORCINE) 5000 UNITS/ML VIAL SQ (06:14)
[2017-07-08 07:01] LABS: MEAN CORPUSCULAR HEMOGLOBIN 26.1 pg (27.0-33.0); MEAN CORPUSCULAR HGB CONC 31.2 g/dl (32.0-36.5); MEAN CORPUSCULAR VOLUME 83.6 fl (80.0-96.0); PLATELET COUNT, AUTOMATED 443 10^3/uL (150-450); RED CELL DISTRIBUTION WIDTH 17.1 % (11.5-14.5)
[2017-07-08 07:18] LABS: ALBUMIN 2.1 GM/DL (3.2-5.2); ANION GAP 5 MEQ/L (8-16); BLOOD UREA NITROGEN 23 MG/DL (7-18); CALCIUM LEVEL 9.1 MG/DL (8.8-10.2); CARBON DIOXIDE LEVEL 30 MEQ/L (21-32); CHLORIDE LEVEL 105 MEQ/L (98-107); CREATININE FOR GFR 1.26 MG/DL (0.55-1.02); GLOMERULAR FILTRATION RATE 43.6 (>39); GLUCOSE, FASTING 83 MG/DL (83-110); PHOSPHORUS LEVEL 2.5 MG/DL (2.5-4.9); POTASSIUM SERUM 4.1 MEQ/L (3.5-5.1); SODIUM LEVEL 140 MEQ/L (136-145)
[2017-07-08] MEDS: MIRALAX *UNIT DOSE* 17GM PACKET PO (09:00)
[2017-07-08] MEDS: POTASSIUM CHLORIDE 10 MEQ SR TABLET PO (09:00)
[2017-07-08] MEDS: FUROSEMIDE 40 MG TAB PO (09:00)
[2017-07-08] MEDS: LACTOBACILLUS ACIDOPHILUS CAP (BACID) PO (09:35)
[2017-07-08] MEDS: VITAMIN D 50,000 UNITS CAPSULE (ERGOCALCIFEROL 1.25MG) PO (09:35)
[2017-07-08] MEDS: EUCERIN 120GM CREAM TOP (09:35)
[2017-07-08] MEDS: ASPIRIN 81 MG ENTERIC TAB PO (09:35)
[2017-07-08] MEDS: DOXYCYCLINE HYCLATE 100 MG TAB PO (09:35)
== END 2017-07-08 12:40 | disposition home health service (06) | DRG 871 ==
LOC: M MS5PR 06-28 20:34 → M ED 12:33 → M PCU 06-26 15:40 → M ED INP 16:26
DX: A41.9 Sepsis, unspecified organism (principal); I50.31 Acute diastolic (congestive) heart failure; L03.116 Cellulitis of left lower limb; N17.9 Acute kidney failure, unspecified; Z68.42 Body mass index [BMI] 45.0-49.9, adult; E87.1 Hypo-osmolality and hyponatremia; I13.0 Hypertensive heart and chronic kidney disease with heart failure and stage 1 through stage 4 chronic kidney disease, or unspecified chronic kidney disease; E46 Unspecified protein-calorie malnutrition; E66.01 Morbid (severe) obesity due to excess calories; L89.152 Pressure ulcer of sacral region, stage 2; E03.9 Hypothyroidism, unspecified; M54.5 Low back pain; G89.29 Other chronic pain; E78.5 Hyperlipidemia, unspecified; E55.9 Vitamin D deficiency, unspecified; E87.6 Hypokalemia; R19.7 Diarrhea, unspecified; I89.0 Lymphedema, not elsewhere classified; Z79.82 Long term (current) use of aspirin; Z79.899 Other long term (current) drug therapy; Z91.19 Patient's noncompliance with other medical treatment and regimen; Z87.440 Personal history of urinary (tract) infections; Z87.442 Personal history of urinary calculi; Z88.2 Allergy status to sulfonamides; Z87.891 Personal history of nicotine dependence; Z91.040 Latex allergy status; Z91.018 Allergy to other foods; N18.3 Chronic kidney disease, stage 3 (moderate); E87.5 Hyperkalemia; K80.20 Calculus of gallbladder without cholecystitis without obstruction; R33.9 Retention of urine, unspecified; E83.41 Hypermagnesemia

== ENCOUNTER → 2017-07-24 | Outpatient (CLI) | payer MEDICARE ==
[2017-07-24 09:54] LABS: BASO # 0.1 10^3/uL (0.0-0.2); BASO % 0.7 % (0.0-1.0); EOS # 0.5 10^3/uL (0.0-0.50); HEMATOCRIT 40.5 % (36.0-47.0); HEMOGLOBIN 12.3 g/dl (12.0-16.0); IMMATURE GRANULOCYTE % 0.2 % (0-0); LYMPH # 1.2 10^3/uL (1.5-4.5); LYMPH % 13.4 % (24.0-44.0); MEAN CORPUSCULAR HEMOGLOBIN 26.5 pg (27.0-33.0); MEAN CORPUSCULAR HGB CONC 30.4 g/dl (32.0-36.5); MEAN CORPUSCULAR VOLUME 87.3 fl (80.0-96.0); MONO # 0.8 10^3/uL (0.0-0.8); MONO % 8.8 % (0.0-5.0); NEUTROPHILS # 6.5 10^3/uL (1.8-7.7); NEUTROPHILS % 71.9 % (36.0-66.0); PLATELET COUNT, AUTOMATED 371 10^3/uL (150-450); RED BLOOD COUNT 4.64 10^6/uL (4.00-5.40); RED CELL DISTRIBUTION WIDTH 18.4 % (11.5-14.5)
[2017-07-24 10:13] LABS: ESTIMATED AVERAGE GLUCOSE 111 MG/DL (60-110); HEMOGLOBIN A1c 5.5 %
[2017-07-24 10:36] LABS: ALBUMIN 2.9 GM/DL (3.2-5.2); ALBUMIN/GLOBULIN RATIO 0.69 (1.00-1.93); ALKALINE PHOSPHATASE 90 U/L (45-117); ALT/SGPT 23 U/L (12-78); ANION GAP 9 MEQ/L (8-16); AST/SGOT 31 U/L (7-37); BILIRUBIN,TOTAL 0.5 MG/DL (0.2-1.0); BLOOD UREA NITROGEN 26 MG/DL (7-18); CALCIUM LEVEL 9.2 MG/DL (8.8-10.2); CARBON DIOXIDE LEVEL 26 MEQ/L (21-32); CHLORIDE LEVEL 107 MEQ/L (98-107); CHOLESTEROL LEVEL 162 MG/DL (<200); CHOLESTEROL RISK RATIO 2.892 (<5); CREATININE FOR GFR 1.26 MG/DL (0.55-1.02); FREE T4 1.26 NG/DL (0.76-1.46); GLOMERULAR FILTRATION RATE 43.6 (>39); GLUCOSE, FASTING 97 MG/DL (83-110); HDL CHOLESTEROL 56 MG/DL (>40); MAGNESIUM LEVEL 2.9 MG/DL (1.8-2.4); NON-HDL-C 106 MG/DL; POTASSIUM SERUM 4.2 MEQ/L (3.5-5.1); SODIUM LEVEL 142 MEQ/L (136-145); THYROID STIMULATING HORMONE 0.536 uIU/ML (0.358-3.740); TOTAL PROTEIN 7.1 GM/DL (6.4-8.2); TRIGLYCERIDES LEVEL 155 MG/DL (<150)
== END ==
LOC: M LAB 09:04
DX: L03.116 Cellulitis of left lower limb (principal); I10 Essential (primary) hypertension; E78.2 Mixed hyperlipidemia; E03.9 Hypothyroidism, unspecified; R73.01 Impaired fasting glucose; E55.9 Vitamin D deficiency, unspecified; E83.42 Hypomagnesemia
CPT/HCPCS: 83735

== ENCOUNTER 2017-11-13 18:06 | Inpatient (IN) | payer MEDICARE, MEDICAID ==
[2017-11-13 19:09] LABS: BASO % 0.1 % (0.0-1.0); EOS % 0.3 % (0.0-3.0); HEMATOCRIT 37.3 % (36.0-47.0); HEMOGLOBIN 11.4 g/dl (12.0-15.5); IMMATURE GRANULOCYTE % 0.3 % (0-3.0); LYMPH # 0.3 10^3/uL (1.5-4.5); LYMPH % 2.8 % (24.0-44.0); MEAN CORPUSCULAR HEMOGLOBIN 24.7 pg (27.0-33.0); MEAN CORPUSCULAR HGB CONC 30.6 g/dl (32.0-36.5); MEAN CORPUSCULAR VOLUME 80.7 fl (80.0-96.0); MONO # 0.3 10^3/uL (0.0-0.8); MONO % 2.1 % (0.0-5.0); NEUTROPHILS # 11.4 10^3/uL (1.8-7.7); NEUTROPHILS % 94.4 % (36.0-66.0); PLATELET COUNT, AUTOMATED 367 10^3/uL (150-450); RED BLOOD COUNT 4.62 10^6/uL (4.00-5.40); RED CELL DISTRIBUTION WIDTH 16.5 % (11.5-14.5)
[2017-11-13 19:16] LABS: INR 1.07
[2017-11-13 19:17] LABS: PARTIAL THROMBOPLASTIN TIME 30.6 SECONDS (26.8-37.9)
[2017-11-13 19:31] LABS: ALBUMIN 2.7 GM/DL (3.2-5.2); ALBUMIN/GLOBULIN RATIO 0.52 (1.00-1.93); ALKALINE PHOSPHATASE 95 U/L (45-117); ALT/SGPT < 6 U/L (12-78); ANION GAP 6 MEQ/L (8-16); AST/SGOT 8 U/L (7-37); BILIRUBIN,DIRECT < 0.1 MG/DL (0.0-0.2); BILIRUBIN,TOTAL 0.4 MG/DL (0.2-1.0); BLOOD UREA NITROGEN 14 MG/DL (7-18); C REACTIVE PROTEIN QUANTITATIV 2.12 MG/DL (0.00-0.30); CALCIUM LEVEL 8.9 MG/DL (8.8-10.2); CARBON DIOXIDE LEVEL 25 MEQ/L (21-32); CHLORIDE LEVEL 108 MEQ/L (98-107); CPK CREATINE PHOSPHOKINASE 28 U/L (26-192); CREATININE FOR GFR 1.11 MG/DL (0.55-1.30); ERYTHROCYTE SEDIMENTATION RATE 116 mm/hr (0-30); FREE T4 1.38 NG/DL (0.76-1.46); GLOMERULAR FILTRATION RATE 50.5 (>39); GLUCOSE, FASTING 116 MG/DL (70-100); POTASSIUM SERUM 4.4 MEQ/L (3.5-5.1); SODIUM LEVEL 139 MEQ/L (136-145); TOTAL PROTEIN 7.9 GM/DL (6.4-8.2); TROPONIN I 0.02 NG/ML (< 0.10)
[2017-11-13 19:35] LABS: LACTIC ACID SEPSIS PROTOCOL 1.7 MMOL/L (0.4-2.0)
[2017-11-13 19:37] LABS: CK-MB VALUE MASS < 1.0 NG/ML (<3.6); MB/CK RELATIVE INDEX 3.57 (< OR =4)
[2017-11-13 20:37] LABS: KETONE, URINE AUTO RFX NEGATIVE (NEGATIVE); MUCUS, URINE RFX SMALL (NEGATIVE); RBC, URINE AUTO RFX 39 /HPF (0-3); SPECIFIC GRAVITY UR AUTO RFX 1.014 (1.002-1.035); SQUAM EPITHELIAL CELL UR AURFX 0 /HPF (0-6)
[2017-11-13 20:38] LABS: LEUKOCYTE ESTERASE UR AUTO RFX 2+ (NEGATIVE); NITRITE, URINE AUTO RFX POSITIVE (NEGATIVE); WBC, URINE AUTO RFX 70 /HPF (0-3)
[2017-11-13] MEDS ORDERED: ONDANSETRON 4MG/2ML VIAL (J2405) As Ordered (21:07)
[2017-11-13] MEDS: ONDANSETRON 4MG/2ML VIAL (J2405) IV ×2 (21:14→22:47)
[2017-11-13] MEDS: CEFEPIME HCL 2 GM in D5W MINI-BAG PLUS 50 ML IV (22:18)
[2017-11-13] MEDS ORDERED: hydrOXYzine 10 MG TAB PO (22:30)
[2017-11-13] MEDS: NS 1,000 ML IV (22:45)
[2017-11-13] MEDS: CEFTAROLINE FOSAMIL 600 MG in D5W MINI-BAG PLUS 50 ML IV (23:00)
[2017-11-14] MEDS: MEROPENEM INJ 1 GM in APPROPRIATE DILUENT 1 EA IV ×3 (02:37→17:19)
[2017-11-14 05:44] LABS: HEMATOCRIT 33.7 % (36.0-47.0); HEMOGLOBIN 10.6 g/dl (12.0-15.5); MEAN CORPUSCULAR HEMOGLOBIN 24.7 pg (27.0-33.0); MEAN CORPUSCULAR HGB CONC 31.5 g/dl (32.0-36.5); MEAN CORPUSCULAR VOLUME 78.4 fl (80.0-96.0); PLATELET COUNT, AUTOMATED 339 10^3/uL (150-450); RED CELL DISTRIBUTION WIDTH 16.2 % (11.5-14.5); WHITE BLOOD COUNT 20.5 10^3/uL (4.0-10.0)
[2017-11-14 06:00] LABS: ANION GAP 7 MEQ/L (8-16); BLOOD UREA NITROGEN 15 MG/DL (7-18); CALCIUM LEVEL 8.5 MG/DL (8.8-10.2); CARBON DIOXIDE LEVEL 22 MEQ/L (21-32); CHLORIDE LEVEL 109 MEQ/L (98-107); CREATININE FOR GFR 1.31 MG/DL (0.55-1.30); GLOMERULAR FILTRATION RATE 41.7 (>39); GLUCOSE, FASTING 110 MG/DL (70-100); POTASSIUM SERUM 4.1 MEQ/L (3.5-5.1); SODIUM LEVEL 138 MEQ/L (136-145)
[2017-11-14] MEDS: LEVOTHYROXINE 125MCG TABLET (0.125MG) PO (06:08)
[2017-11-14] MEDS: HEPARIN SOD (PORCINE) 5000 UNITS/ML VIAL SC ×3 (06:09→20:57)
[2017-11-14] MEDS: LACTOBACILLUS ACIDOPHILUS CAP (BACID) PO (08:44)
[2017-11-14] MEDS: ASPIRIN 81 MG ENTERIC TAB PO (08:45)
[2017-11-14] MEDS: ROSUVASTATIN 10 MG TAB (CRESTOR) PO (08:45)
[2017-11-14] MEDS: NYSTATIN 100,000 UNITS/GM TOPICAL PWD 15 GM TOP ×2 (08:45→20:56)
[2017-11-14] MEDS: POTASSIUM CHLORIDE 10 MEQ SR TABLET PO (08:45)
[2017-11-14] MEDS: ONDANSETRON 4MG/2ML VIAL (J2405) IV (09:55)
[2017-11-14] MEDS: CEFTAROLINE FOSAMIL 600 MG in D5W MINI-BAG PLUS 50 ML IV ×2 (10:30→22:59)
[2017-11-14] MEDS: ACETAMINOPHEN TAB 650MG DOSE (2X325MG) PO (12:13)
[2017-11-14] MEDS: PERCOCET 5MG/325MG TAB PO (14:21)
[2017-11-15] MEDS: MEROPENEM INJ 1 GM in APPROPRIATE DILUENT 1 EA IV ×3 (01:19→17:19)
[2017-11-15] MEDS: PERCOCET 5MG/325MG TAB PO (02:53)
[2017-11-15] MEDS: HEPARIN SOD (PORCINE) 5000 UNITS/ML VIAL SC ×3 (05:53→21:08)
[2017-11-15] MEDS: LEVOTHYROXINE 125MCG TABLET (0.125MG) PO (05:53)
[2017-11-15 06:07] LABS: HEMATOCRIT 31.4 % (36.0-47.0); HEMOGLOBIN 9.9 g/dl (12.0-15.5); MEAN CORPUSCULAR HEMOGLOBIN 24.8 pg (27.0-33.0); MEAN CORPUSCULAR HGB CONC 31.5 g/dl (32.0-36.5); MEAN CORPUSCULAR VOLUME 78.5 fl (80.0-96.0); PLATELET COUNT, AUTOMATED 325 10^3/uL (150-450); RED CELL DISTRIBUTION WIDTH 16.5 % (11.5-14.5); WHITE BLOOD COUNT 18.8 10^3/uL (4.0-10.0)
[2017-11-15 06:21] LABS: ANION GAP 5 MEQ/L (8-16); BLOOD UREA NITROGEN 28 MG/DL (7-18); CALCIUM LEVEL 8.7 MG/DL (8.8-10.2); CARBON DIOXIDE LEVEL 26 MEQ/L (21-32); CHLORIDE LEVEL 108 MEQ/L (98-107); CREATININE FOR GFR 1.46 MG/DL (0.55-1.30); GLOMERULAR FILTRATION RATE 36.8 (>39); GLUCOSE, FASTING 90 MG/DL (70-100); POTASSIUM SERUM 4.9 MEQ/L (3.5-5.1); SODIUM LEVEL 139 MEQ/L (136-145)
[2017-11-15] MEDS ORDERED: NALOXONE INJ 0.4 MG/1 ML VIAL (J2310) IV (08:00)
[2017-11-15] MEDS ORDERED: PILL CRUSHER/CUTTER 1 EACH XX (08:15)
[2017-11-15] MEDS ORDERED: MORPHINE 30 MG TAB **MSIR PO (08:15)
[2017-11-15] MEDS: LACTOBACILLUS ACIDOPHILUS CAP (BACID) PO (08:45)
[2017-11-15] MEDS: MORPHINE 4 MG/ML 1ML VIAL/SYRINGE (J2270) IV ×2 (08:45→13:37)
[2017-11-15] MEDS: ASPIRIN 81 MG ENTERIC TAB PO (08:46)
[2017-11-15] MEDS: ROSUVASTATIN 10 MG TAB (CRESTOR) PO (08:46)
[2017-11-15] MEDS: POTASSIUM CHLORIDE 10 MEQ SR TABLET PO (08:46)
[2017-11-15] MEDS: MORPHINE 15 MG SA TAB PO ×2 (08:46→21:07)
[2017-11-15] MEDS: NYSTATIN 100,000 UNITS/GM TOPICAL PWD 15 GM TOP ×2 (08:47→21:07)
[2017-11-15] MEDS: ONDANSETRON 4MG/2ML VIAL (J2405) IV (09:04)
[2017-11-15] MEDS: CEFTAROLINE FOSAMIL 600 MG in D5W MINI-BAG PLUS 50 ML IV ×2 (10:19→22:48)
[2017-11-16] MEDS: MEROPENEM INJ 1 GM in APPROPRIATE DILUENT 1 EA IV ×2 (01:12→09:07)
[2017-11-16] MEDS: MORPHINE 30 MG TAB **MSIR PO (04:22)
[2017-11-16] MEDS: HEPARIN SOD (PORCINE) 5000 UNITS/ML VIAL SC ×3 (05:12→21:46)
[2017-11-16] MEDS: LEVOTHYROXINE 125MCG TABLET (0.125MG) PO (05:12)
[2017-11-16 05:32] LABS: HEMATOCRIT 32.9 % (36.0-47.0); HEMOGLOBIN 10.2 g/dl (12.0-15.5); MEAN CORPUSCULAR HEMOGLOBIN 24.5 pg (27.0-33.0); MEAN CORPUSCULAR VOLUME 79.1 fl (80.0-96.0); PLATELET COUNT, AUTOMATED 323 10^3/uL (150-450); RED BLOOD COUNT 4.16 10^6/uL (4.00-5.40); RED CELL DISTRIBUTION WIDTH 16.5 % (11.5-14.5); WHITE BLOOD COUNT 9.3 10^3/uL (4.0-10.0)
[2017-11-16 05:48] LABS: ANION GAP 4 MEQ/L (8-16); BLOOD UREA NITROGEN 26 MG/DL (7-18); CALCIUM LEVEL 9.1 MG/DL (8.8-10.2); CARBON DIOXIDE LEVEL 26 MEQ/L (21-32); CHLORIDE LEVEL 108 MEQ/L (98-107); CREATININE FOR GFR 1.23 MG/DL (0.55-1.30); GLOMERULAR FILTRATION RATE 44.8 (>39); GLUCOSE, FASTING 88 MG/DL (70-100); POTASSIUM SERUM 4.8 MEQ/L (3.5-5.1); SODIUM LEVEL 138 MEQ/L (136-145)
[2017-11-16] MEDS: LACTOBACILLUS ACIDOPHILUS CAP (BACID) PO (09:06)
[2017-11-16] MEDS: MORPHINE 15 MG SA TAB PO ×2 (09:06→21:48)
[2017-11-16] MEDS: ASPIRIN 81 MG ENTERIC TAB PO (09:06)
[2017-11-16] MEDS: POTASSIUM CHLORIDE 10 MEQ SR TABLET PO (09:06)
[2017-11-16] MEDS: ROSUVASTATIN 10 MG TAB (CRESTOR) PO (09:06)
[2017-11-16] MEDS: NYSTATIN 100,000 UNITS/GM TOPICAL PWD 15 GM TOP ×2 (09:07→21:48)
[2017-11-16] MEDS: FUROSEMIDE 20 MG/2 ML VIAL (J1940) IV (09:07)
[2017-11-16] MEDS: AMPICILLIN SOD/SULBACTAM SOD 3 GM in D5W MINI-BAG PLUS 100 ML IV ×2 (11:41→17:42)
[2017-11-17] MEDS: AMPICILLIN SOD/SULBACTAM SOD 3 GM in D5W MINI-BAG PLUS 100 ML IV ×4 (00:16→17:56)
[2017-11-17] MEDS: MORPHINE 30 MG TAB **MSIR PO (03:22)
[2017-11-17] MEDS: HEPARIN SOD (PORCINE) 5000 UNITS/ML VIAL SC ×3 (05:35→20:14)
[2017-11-17] MEDS: LEVOTHYROXINE 125MCG TABLET (0.125MG) PO (05:35)
[2017-11-17 05:54] LABS: HEMATOCRIT 32.2 % (36.0-47.0); HEMOGLOBIN 9.7 g/dl (12.0-15.5); MEAN CORPUSCULAR HEMOGLOBIN 24.1 pg (27.0-33.0); MEAN CORPUSCULAR HGB CONC 30.1 g/dl (32.0-36.5); MEAN CORPUSCULAR VOLUME 80.1 fl (80.0-96.0); PLATELET COUNT, AUTOMATED 337 10^3/uL (150-450); RED BLOOD COUNT 4.02 10^6/uL (4.00-5.40); RED CELL DISTRIBUTION WIDTH 16.3 % (11.5-14.5); WHITE BLOOD COUNT 7.5 10^3/uL (4.0-10.0)
[2017-11-17 06:19] LABS: ANION GAP 3 MEQ/L (8-16); BLOOD UREA NITROGEN 24 MG/DL (7-18); CARBON DIOXIDE LEVEL 29 MEQ/L (21-32); CHLORIDE LEVEL 107 MEQ/L (98-107); CREATININE FOR GFR 1.21 MG/DL (0.55-1.30); GLOMERULAR FILTRATION RATE 45.7 (>39); GLUCOSE, FASTING 96 MG/DL (70-100); POTASSIUM SERUM 4.7 MEQ/L (3.5-5.1); SODIUM LEVEL 139 MEQ/L (136-145)
[2017-11-17] MEDS: ROSUVASTATIN 10 MG TAB (CRESTOR) PO (09:38)
[2017-11-17] MEDS: ASPIRIN 81 MG ENTERIC TAB PO (09:38)
[2017-11-17] MEDS: POTASSIUM CHLORIDE 10 MEQ SR TABLET PO (09:39)
[2017-11-17] MEDS: LACTOBACILLUS ACIDOPHILUS CAP (BACID) PO (09:39)
[2017-11-17] MEDS: NYSTATIN 100,000 UNITS/GM TOPICAL PWD 15 GM TOP ×2 (09:40→20:15)
[2017-11-17] MEDS: MORPHINE 15 MG SA TAB PO ×2 (09:40→20:15)
[2017-11-17] MEDS ORDERED: SODIUM CHLORIDE NASAL 0.65% SPRAY BTL (OCEAN) (14:45)
[2017-11-18] MEDS: AMPICILLIN SOD/SULBACTAM SOD 3 GM in D5W MINI-BAG PLUS 100 ML IV ×5 (00:02→23:56)
[2017-11-18] MEDS ORDERED: ISOVUE-370 76% 100ML VIAL (Q9967) As Ordered (01:05)
[2017-11-18] MEDS: LEVOTHYROXINE 125MCG TABLET (0.125MG) PO (05:53)
[2017-11-18] MEDS: HEPARIN SOD (PORCINE) 5000 UNITS/ML VIAL SC ×3 (05:53→21:31)
[2017-11-18 06:44] LABS: HEMATOCRIT 33.7 % (36.0-47.0); HEMOGLOBIN 9.9 g/dl (12.0-15.5); MEAN CORPUSCULAR HGB CONC 29.4 g/dl (32.0-36.5); MEAN CORPUSCULAR VOLUME 81.8 fl (80.0-96.0); PLATELET COUNT, AUTOMATED 335 10^3/uL (150-450); RED BLOOD COUNT 4.12 10^6/uL (4.00-5.40); RED CELL DISTRIBUTION WIDTH 16.2 % (11.5-14.5); WHITE BLOOD COUNT 5.4 10^3/uL (4.0-10.0)
[2017-11-18 06:58] LABS: ANION GAP 2 MEQ/L (8-16); BLOOD UREA NITROGEN 19 MG/DL (7-18); CALCIUM LEVEL 9.1 MG/DL (8.8-10.2); CARBON DIOXIDE LEVEL 31 MEQ/L (21-32); CHLORIDE LEVEL 104 MEQ/L (98-107); CREATININE FOR GFR 1.13 MG/DL (0.55-1.30); GLOMERULAR FILTRATION RATE 49.4 (>39); GLUCOSE, FASTING 109 MG/DL (70-100); POTASSIUM SERUM 4.5 MEQ/L (3.5-5.1); SODIUM LEVEL 137 MEQ/L (136-145)
[2017-11-18] MEDS: LACTOBACILLUS ACIDOPHILUS CAP (BACID) PO (09:34)
[2017-11-18] MEDS: ROSUVASTATIN 10 MG TAB (CRESTOR) PO (09:34)
[2017-11-18] MEDS: ASPIRIN 81 MG ENTERIC TAB PO (09:35)
[2017-11-18] MEDS: POTASSIUM CHLORIDE 10 MEQ SR TABLET PO (09:35)
[2017-11-18] MEDS: MORPHINE 15 MG SA TAB PO ×2 (09:35→21:31)
[2017-11-18] MEDS: NYSTATIN 100,000 UNITS/GM TOPICAL PWD 15 GM TOP ×2 (09:35→21:31)
[2017-11-19] MEDS: LEVOTHYROXINE 125MCG TABLET (0.125MG) PO (06:06)
[2017-11-19] MEDS: AMPICILLIN SOD/SULBACTAM SOD 3 GM in D5W MINI-BAG PLUS 100 ML IV ×3 (06:06→17:53)
[2017-11-19] MEDS: HEPARIN SOD (PORCINE) 5000 UNITS/ML VIAL SC ×3 (06:06→21:51)
[2017-11-19 06:34] LABS: HEMATOCRIT 31.6 % (36.0-47.0); HEMOGLOBIN 9.5 g/dl (12.0-15.5); MEAN CORPUSCULAR HEMOGLOBIN 24.2 pg (27.0-33.0); MEAN CORPUSCULAR HGB CONC 30.1 g/dl (32.0-36.5); MEAN CORPUSCULAR VOLUME 80.6 fl (80.0-96.0); PLATELET COUNT, AUTOMATED 360 10^3/uL (150-450); RED BLOOD COUNT 3.92 10^6/uL (4.00-5.40); RED CELL DISTRIBUTION WIDTH 16.2 % (11.5-14.5); WHITE BLOOD COUNT 5.1 10^3/uL (4.0-10.0)
[2017-11-19 07:05] LABS: ANION GAP 3 MEQ/L (8-16); BLOOD UREA NITROGEN 14 MG/DL (7-18); CALCIUM LEVEL 9.1 MG/DL (8.8-10.2); CARBON DIOXIDE LEVEL 31 MEQ/L (21-32); CHLORIDE LEVEL 105 MEQ/L (98-107); CREATININE FOR GFR 0.96 MG/DL (0.55-1.30); GLOMERULAR FILTRATION RATE 59.7 (>39); GLUCOSE, FASTING 81 MG/DL (70-100); POTASSIUM SERUM 4.7 MEQ/L (3.5-5.1); SODIUM LEVEL 139 MEQ/L (136-145)
[2017-11-19] MEDS: POTASSIUM CHLORIDE 10 MEQ SR TABLET PO (09:30)
[2017-11-19] MEDS: ASPIRIN 81 MG ENTERIC TAB PO (09:31)
[2017-11-19] MEDS: MORPHINE 15 MG SA TAB PO ×2 (09:31→21:52)
[2017-11-19] MEDS: ROSUVASTATIN 10 MG TAB (CRESTOR) PO (09:31)
[2017-11-19] MEDS: NYSTATIN 100,000 UNITS/GM TOPICAL PWD 15 GM TOP ×2 (09:32→21:51)
[2017-11-19] MEDS: LACTOBACILLUS ACIDOPHILUS CAP (BACID) PO (09:32)
[2017-11-20] MEDS: AMPICILLIN SOD/SULBACTAM SOD 3 GM in D5W MINI-BAG PLUS 100 ML IV ×3 (00:10→12:54)
[2017-11-20] MEDS: MORPHINE 30 MG TAB **MSIR PO ×2 (03:20→12:53)
[2017-11-20] MEDS: LEVOTHYROXINE 125MCG TABLET (0.125MG) PO (05:34)
[2017-11-20] MEDS: HEPARIN SOD (PORCINE) 5000 UNITS/ML VIAL SC ×3 (05:34→21:40)
[2017-11-20 06:13] LABS: HEMOGLOBIN 9.5 g/dl (12.0-15.5); MEAN CORPUSCULAR HEMOGLOBIN 24.4 pg (27.0-33.0); MEAN CORPUSCULAR HGB CONC 29.7 g/dl (32.0-36.5); MEAN CORPUSCULAR VOLUME 82.1 fl (80.0-96.0); PLATELET COUNT, AUTOMATED 389 10^3/uL (150-450); RED CELL DISTRIBUTION WIDTH 16.1 % (11.5-14.5); WHITE BLOOD COUNT 6.1 10^3/uL (4.0-10.0)
[2017-11-20 06:27] LABS: ANION GAP 1 MEQ/L (8-16); BLOOD UREA NITROGEN 13 MG/DL (7-18); CALCIUM LEVEL 9.2 MG/DL (8.8-10.2); CARBON DIOXIDE LEVEL 34 MEQ/L (21-32); CHLORIDE LEVEL 105 MEQ/L (98-107); CREATININE FOR GFR 0.99 MG/DL (0.55-1.30); GLOMERULAR FILTRATION RATE 57.6 (>39); GLUCOSE, FASTING 84 MG/DL (70-100); POTASSIUM SERUM 4.6 MEQ/L (3.5-5.1); SODIUM LEVEL 140 MEQ/L (136-145)
[2017-11-20] MEDS: NYSTATIN 100,000 UNITS/GM TOPICAL PWD 15 GM TOP ×2 (09:41→21:40)
[2017-11-20] MEDS: ROSUVASTATIN 10 MG TAB (CRESTOR) PO (09:42)
[2017-11-20] MEDS: LACTOBACILLUS ACIDOPHILUS CAP (BACID) PO (09:42)
[2017-11-20] MEDS: POTASSIUM CHLORIDE 10 MEQ SR TABLET PO (09:42)
[2017-11-20] MEDS: ASPIRIN 81 MG ENTERIC TAB PO (09:42)
[2017-11-20] MEDS: MORPHINE 15 MG SA TAB PO ×2 (09:42→21:40)
[2017-11-20] MEDS: MORPHINE 4 MG/ML 1ML VIAL/SYRINGE (J2270) IV (17:44)
[2017-11-20] MEDS: cefTRIAXone SOD 1 GM in D5W MINI-BAG PLUS 50 ML IV (17:44)
[2017-11-20] MEDS: ACETAMINOPHEN TAB 650MG DOSE (2X325MG) PO (22:43)
[2017-11-21] MEDS: LEVOTHYROXINE 125MCG TABLET (0.125MG) PO (05:10)
[2017-11-21] MEDS: HEPARIN SOD (PORCINE) 5000 UNITS/ML VIAL SC ×3 (05:10→21:39)
[2017-11-21] MEDS: MORPHINE 30 MG TAB **MSIR PO (05:11)
[2017-11-21 06:00] LABS: BASO # 0.1 10^3/uL (0.0-0.2); BASO % 1.1 % (0.0-1.0); EOS # 0.6 10^3/uL (0.0-0.50); EOS % 10.3 % (0.0-3.0); HEMATOCRIT 31.2 % (36.0-47.0); HEMOGLOBIN 9.1 g/dl (12.0-15.5); IMMATURE GRANULOCYTE % 0.6 % (0-3.0); LYMPH # 1.2 10^3/uL (1.5-4.5); LYMPH % 22.7 % (24.0-44.0); MEAN CORPUSCULAR HEMOGLOBIN 24.1 pg (27.0-33.0); MEAN CORPUSCULAR HGB CONC 29.2 g/dl (32.0-36.5); MEAN CORPUSCULAR VOLUME 82.8 fl (80.0-96.0); MONO # 0.8 10^3/uL (0.0-0.8); NEUTROPHILS # 2.8 10^3/uL (1.8-7.7); NEUTROPHILS % 51.3 % (36.0-66.0); PLATELET COUNT, AUTOMATED 388 10^3/uL (150-450); RED BLOOD COUNT 3.77 10^6/uL (4.00-5.40); RED CELL DISTRIBUTION WIDTH 16.2 % (11.5-14.5); WHITE BLOOD COUNT 5.4 10^3/uL (4.0-10.0)
[2017-11-21 06:15] LABS: ANION GAP 3 MEQ/L (8-16); BLOOD UREA NITROGEN 12 MG/DL (7-18); C REACTIVE PROTEIN QUANTITATIV 0.91 MG/DL (0.00-0.30); CALCIUM LEVEL 9.1 MG/DL (8.8-10.2); CARBON DIOXIDE LEVEL 34 MEQ/L (21-32); CHLORIDE LEVEL 105 MEQ/L (98-107); CREATININE FOR GFR 1.02 MG/DL (0.55-1.30); GLOMERULAR FILTRATION RATE 55.7 (>39); GLUCOSE, FASTING 109 MG/DL (70-100); MAGNESIUM LEVEL 2.3 MG/DL (1.8-2.4); POTASSIUM SERUM 4.2 MEQ/L (3.5-5.1); SODIUM LEVEL 142 MEQ/L (136-145)
[2017-11-21 07:52] LABS: ERYTHROCYTE SEDIMENTATION RATE 75 mm/hr (0-30)
[2017-11-21] MEDS: LACTOBACILLUS ACIDOPHILUS CAP (BACID) PO (09:13)
[2017-11-21] MEDS: ROSUVASTATIN 10 MG TAB (CRESTOR) PO (09:13)
[2017-11-21] MEDS: ASPIRIN 81 MG ENTERIC TAB PO (09:15)
[2017-11-21] MEDS: MORPHINE 15 MG SA TAB PO ×2 (09:15→21:41)
[2017-11-21] MEDS: POTASSIUM CHLORIDE 10 MEQ SR TABLET PO (09:15)
[2017-11-21] MEDS: NYSTATIN 100,000 UNITS/GM TOPICAL PWD 15 GM TOP ×2 (09:16→21:39)
[2017-11-21] MEDS: ACETAMINOPHEN TAB 650MG DOSE (2X325MG) PO (11:26)
[2017-11-21] MEDS: MORPHINE 4 MG/ML 1ML VIAL/SYRINGE (J2270) IV (12:26)
[2017-11-21] MEDS: cefTRIAXone SOD 1 GM in D5W MINI-BAG PLUS 50 ML IV (19:26)
[2017-11-22] MEDS: ACETAMINOPHEN TAB 650MG DOSE (2X325MG) PO ×2 (00:48→09:28)
[2017-11-22] MEDS: HEPARIN SOD (PORCINE) 5000 UNITS/ML VIAL SC ×3 (06:11→21:14)
[2017-11-22] MEDS: LEVOTHYROXINE 125MCG TABLET (0.125MG) PO (06:12)
[2017-11-22] MEDS: MORPHINE 30 MG TAB **MSIR PO ×2 (06:13)
[2017-11-22 06:28] LABS: BASO # 0.1 10^3/uL (0.0-0.2); BASO % 1.3 % (0.0-1.0); EOS # 0.5 10^3/uL (0.0-0.50); EOS % 8.3 % (0.0-3.0); HEMATOCRIT 33.6 % (36.0-47.0); IMMATURE GRANULOCYTE % 0.5 % (0-3.0); LYMPH # 2.1 10^3/uL (1.5-4.5); LYMPH % 38.2 % (24.0-44.0); MEAN CORPUSCULAR HEMOGLOBIN 24.3 pg (27.0-33.0); MEAN CORPUSCULAR HGB CONC 29.8 g/dl (32.0-36.5); MEAN CORPUSCULAR VOLUME 81.6 fl (80.0-96.0); MONO # 0.8 10^3/uL (0.0-0.8); MONO % 15.1 % (0.0-5.0); NEUTROPHILS % 36.6 % (36.0-66.0); PLATELET COUNT, AUTOMATED 460 10^3/uL (150-450); RED BLOOD COUNT 4.12 10^6/uL (4.00-5.40); RED CELL DISTRIBUTION WIDTH 16.4 % (11.5-14.5); WHITE BLOOD COUNT 5.6 10^3/uL (4.0-10.0)
[2017-11-22 06:39] LABS: ANION GAP 4 MEQ/L (8-16); BLOOD UREA NITROGEN 11 MG/DL (7-18); C REACTIVE PROTEIN QUANTITATIV 0.68 MG/DL (0.00-0.30); CALCIUM LEVEL 9.4 MG/DL (8.8-10.2); CARBON DIOXIDE LEVEL 31 MEQ/L (21-32); CHLORIDE LEVEL 104 MEQ/L (98-107); CREATININE FOR GFR 0.92 MG/DL (0.55-1.30); GLOMERULAR FILTRATION RATE > 60.0 (>39); GLUCOSE, FASTING 94 MG/DL (70-100); MAGNESIUM LEVEL 2.4 MG/DL (1.8-2.4); POTASSIUM SERUM 4.6 MEQ/L (3.5-5.1); SODIUM LEVEL 139 MEQ/L (136-145)
[2017-11-22 06:59] LABS: ERYTHROCYTE SEDIMENTATION RATE 68 mm/hr (0-30)
[2017-11-22] MEDS: NYSTATIN 100,000 UNITS/GM TOPICAL PWD 15 GM TOP ×2 (09:26→21:15)
[2017-11-22] MEDS: MORPHINE 15 MG SA TAB PO ×2 (09:27→21:15)
[2017-11-22] MEDS: ROSUVASTATIN 10 MG TAB (CRESTOR) PO (09:27)
[2017-11-22] MEDS: LACTOBACILLUS ACIDOPHILUS CAP (BACID) PO (09:28)
[2017-11-22] MEDS: ASPIRIN 81 MG ENTERIC TAB PO (09:28)
[2017-11-22] MEDS: POTASSIUM CHLORIDE 10 MEQ SR TABLET PO (09:29)
[2017-11-22] MEDS: DOXYCYCLINE HYCLATE 100 MG TAB PO ×2 (11:14→21:14)
[2017-11-23] MEDS: MORPHINE 30 MG TAB **MSIR PO ×2 (02:06→06:14)
[2017-11-23 06:01] LABS: BASO # 0.1 10^3/uL (0.0-0.2); BASO % 1.4 % (0.0-1.0); EOS # 0.2 10^3/uL (0.0-0.50); EOS % 5.1 % (0.0-3.0); HEMATOCRIT 32.1 % (36.0-47.0); HEMOGLOBIN 9.6 g/dl (12.0-15.5); IMMATURE GRANULOCYTE % 0.5 % (0-3.0); LYMPH # 1.2 10^3/uL (1.5-4.5); LYMPH % 27.7 % (24.0-44.0); MEAN CORPUSCULAR HEMOGLOBIN 24.4 pg (27.0-33.0); MEAN CORPUSCULAR HGB CONC 29.9 g/dl (32.0-36.5); MEAN CORPUSCULAR VOLUME 81.5 fl (80.0-96.0); MONO # 0.6 10^3/uL (0.0-0.8); MONO % 14.1 % (0.0-5.0); NEUTROPHILS # 2.2 10^3/uL (1.8-7.7); NEUTROPHILS % 51.2 % (36.0-66.0); PLATELET COUNT, AUTOMATED 445 10^3/uL (150-450); RED BLOOD COUNT 3.94 10^6/uL (4.00-5.40); RED CELL DISTRIBUTION WIDTH 16.4 % (11.5-14.5); WHITE BLOOD COUNT 4.3 10^3/uL (4.0-10.0)
[2017-11-23] MEDS: HEPARIN SOD (PORCINE) 5000 UNITS/ML VIAL SC (06:13)
[2017-11-23] MEDS: LEVOTHYROXINE 125MCG TABLET (0.125MG) PO (06:13)
[2017-11-23 06:19] LABS: ANION GAP 3 MEQ/L (8-16); BLOOD UREA NITROGEN 11 MG/DL (7-18); C REACTIVE PROTEIN QUANTITATIV 0.43 MG/DL (0.00-0.30); CALCIUM LEVEL 9.5 MG/DL (8.8-10.2); CARBON DIOXIDE LEVEL 32 MEQ/L (21-32); CHLORIDE LEVEL 104 MEQ/L (98-107); CREATININE FOR GFR 0.85 MG/DL (0.55-1.30); GLOMERULAR FILTRATION RATE > 60.0 (>39); GLUCOSE, FASTING 100 MG/DL (70-100); MAGNESIUM LEVEL 2.4 MG/DL (1.8-2.4); POTASSIUM SERUM 4.2 MEQ/L (3.5-5.1); SODIUM LEVEL 139 MEQ/L (136-145)
[2017-11-23 07:06] LABS: ERYTHROCYTE SEDIMENTATION RATE 84 mm/hr (0-30)
[2017-11-23] MEDS: NYSTATIN 100,000 UNITS/GM TOPICAL PWD 15 GM TOP (09:21)
[2017-11-23] MEDS: MORPHINE 15 MG SA TAB PO (09:22)
[2017-11-23] MEDS: ASPIRIN 81 MG ENTERIC TAB PO (09:23)
[2017-11-23] MEDS: ROSUVASTATIN 10 MG TAB (CRESTOR) PO (09:23)
[2017-11-23] MEDS: LACTOBACILLUS ACIDOPHILUS CAP (BACID) PO (09:23)
[2017-11-23] MEDS: POTASSIUM CHLORIDE 10 MEQ SR TABLET PO (09:24)
[2017-11-23] MEDS: DOXYCYCLINE HYCLATE 100 MG TAB PO (09:24)
[2017-11-23] MEDS: ONDANSETRON 4 MG TAB (S0181) PO (11:30)
== END 2017-11-23 13:43 | disposition home or self-care (01) | DRG 872 ==
LOC: M ED 18:06 → M ED INP 22:24 → M MSPAV 23:30
DX: A41.9 Sepsis, unspecified organism (principal); L03.115 Cellulitis of right lower limb; N39.0 Urinary tract infection, site not specified; Z68.43 Body mass index [BMI] 50.0-59.9, adult; N17.9 Acute kidney failure, unspecified; Z79.82 Long term (current) use of aspirin; E66.01 Morbid (severe) obesity due to excess calories; I11.0 Hypertensive heart disease with heart failure; B96.1 Klebsiella pneumoniae [K. pneumoniae] as the cause of diseases classified elsewhere; Z79.899 Other long term (current) drug therapy; E03.9 Hypothyroidism, unspecified; Z88.2 Allergy status to sulfonamides; Z88.8 Allergy status to other drugs, medicaments and biological substances; Z91.040 Latex allergy status; Z91.018 Allergy to other foods; Z88.1 Allergy status to other antibiotic agents; E78.5 Hyperlipidemia, unspecified; I50.810 Right heart failure, unspecified

== ENCOUNTER → 2017-12-18 | Outpatient (REF) | payer MEDICARE, MEDICAID ==
[2017-12-18 13:39] LABS: APPEARANCE, URINE HAZY (CLEAR); BACTERIA, URINE AUTO 2+ (NEGATIVE); BILIRUBIN, URINE AUTO NEGATIVE (NEGATIVE); BLOOD, URINE BLOOD 2+ (NEGATIVE); COLOR, URINE YELLOW (YELLOW); GLUCOSE, URINE (UA) AUTO NEGATIVE (NEGATIVE); KETONE, URINE AUTO NEGATIVE (NEGATIVE); LEUKOCYTE ESTERASE, URINE AUTO 3+ (NEGATIVE); MUCUS, URINE SMALL (NEGATIVE); NITRITE, URINE AUTO NEGATIVE (NEGATIVE); PROTEIN, URINE AUTO NEGATIVE (NEGATIVE); RBC, URINE AUTO 131 /HPF (0-3); SPECIFIC GRAVITY URINE AUTO 1.017 (1.002-1.035); SQUAMOUS EPITHELIAL CELL UR AU 0 /HPF (0-6); UROBILINOGEN, URINE AUTO 0.2 mg/dL (0.0-2.0); WBC, URINE AUTO 137 /HPF (0-3); YEAST LIKE CELL URINE AUTO SMALL
== END ==
LOC: M SMT 13:06
DX: N39.0 Urinary tract infection, site not specified (principal)
CPT/HCPCS: 81001

== ENCOUNTER → 2018-01-22 | Outpatient (CLI) | payer MEDICARE, MEDICAID ==
[2018-01-22 09:37] LABS: BASO # 0.1 10^3/uL (0.0-0.2); BASO % 0.7 % (0.0-1.0); EOS # 0.3 10^3/uL (0.0-0.50); EOS % 3.8 % (0.0-3.0); HEMATOCRIT 35.3 % (36.0-47.0); HEMOGLOBIN 10.7 g/dl (12.0-15.5); IMMATURE GRANULOCYTE % 0.3 % (0-3.0); LYMPH # 1.1 10^3/uL (1.5-4.5); LYMPH % 16.5 % (24.0-44.0); MEAN CORPUSCULAR HEMOGLOBIN 23.5 pg (27.0-33.0); MEAN CORPUSCULAR HGB CONC 30.3 g/dl (32.0-36.5); MEAN CORPUSCULAR VOLUME 77.6 fl (80.0-96.0); MONO # 0.7 10^3/uL (0.0-0.8); MONO % 9.4 % (0.0-5.0); NEUTROPHILS # 4.8 10^3/uL (1.8-7.7); NEUTROPHILS % 69.3 % (36.0-66.0); PLATELET COUNT, AUTOMATED 472 10^3/uL (150-450); RED BLOOD COUNT 4.55 10^6/uL (4.00-5.40); RED CELL DISTRIBUTION WIDTH 18.6 % (11.5-14.5); WHITE BLOOD COUNT 6.9 10^3/uL (4.0-10.0)
[2018-01-22 10:13] LABS: TOTAL 25(OH) VITAMIN D 53.4 NG/ML (30.0-100.0)
[2018-01-22 10:17] LABS: ESTIMATED AVERAGE GLUCOSE 123 MG/DL (60-110); HEMOGLOBIN A1c 5.9 %
[2018-01-22 10:36] LABS: ALBUMIN 2.8 GM/DL (3.2-5.2); ALBUMIN/GLOBULIN RATIO 0.64 (1.00-1.93); ALKALINE PHOSPHATASE 111 U/L (45-117); ALT/SGPT 10 U/L (12-78); ANION GAP 8 MEQ/L (8-16); AST/SGOT 11 U/L (7-37); BILIRUBIN,TOTAL 0.4 MG/DL (0.2-1.0); BLOOD UREA NITROGEN 19 MG/DL (7-18); CALCIUM LEVEL 9.3 MG/DL (8.8-10.2); CARBON DIOXIDE LEVEL 24 MEQ/L (21-32); CHLORIDE LEVEL 109 MEQ/L (98-107); CHOLESTEROL LEVEL 155 MG/DL (<200); CHOLESTEROL RISK RATIO 3.163 (<5); CREATININE FOR GFR 1.02 MG/DL (0.55-1.30); FREE T4 1.67 NG/DL (0.76-1.46); GLOMERULAR FILTRATION RATE 55.7 (>39); GLUCOSE, FASTING 78 MG/DL (70-100); HDL CHOLESTEROL 49 MG/DL (>40); LDL CHOLESTEROL 81.2 MG/DL (<100); MAGNESIUM LEVEL 2.1 MG/DL (1.8-2.4); NON-HDL-C 106 MG/DL; POTASSIUM SERUM 4.7 MEQ/L (3.5-5.1); SODIUM LEVEL 141 MEQ/L (136-145); TOTAL PROTEIN 7.2 GM/DL (6.4-8.2); TRIGLYCERIDES LEVEL 124 MG/DL (<150)
== END ==
LOC: M LAB 08:31
DX: L03.116 Cellulitis of left lower limb (principal); I10 Essential (primary) hypertension; E78.2 Mixed hyperlipidemia; E55.9 Vitamin D deficiency, unspecified; Z79.899 Other long term (current) drug therapy
CPT/HCPCS: 83735

== ENCOUNTER 2018-06-24 12:05 | Inpatient (IN) | payer MEDICARE, MEDICAID ==
[~2018-06-24] VITALS: Ht 152.4 cm; Wt 108.3 kg
[~2018-06-24 12:05] MED LIST changes: -ACET1TAB17 PO; +ACET1TAB55 PO; +DOXY100T PO; -DRIS50002 PO; +DRIS50003 PO; +FURO40TA2 PO; -IBAN150T5 PO; +IBAN150T6 PO; -LEVA1TAB PO; +LEVA250T13 PO; +LEVO125T4 PO; +LEVO125T41 PO; +MORP15TASA PO; +NYAM10003 TOP; -ROCE1INJ4 IV; +ROCE1INJ6 IV; -VITA1CAP40 PO; +VITA50005 PO; +ZOFR4TAB14 PO; -ZOFR4TAB3 PO; -ZYVO100T PO; +ZYVO1TAB PO
[2018-06-24] MEDS ORDERED: AMPICILLIN SOD/SULBACTAM SOD 1.5 GM in D5W MINI-BAG PLUS 50 ML IV ONE (12:30)
[2018-06-24] MEDS ORDERED: NS 1,000 ML IV SCH (12:30)
[2018-06-24] MEDS ORDERED: FERR1TAB8 PO (13:04)
--- NOTE | 2018-06-24 13:31 | REP ---
Bilateral lower extremity Duplex Doppler venous ultrasound: Real time compression and duplex Doppler interrogation of the bilateral lower extremity deep venous system is performed. Bilaterally, the common femoral and superficial femoral veins are fully compressible with transducer pressure and demonstrate normal spontaneous and phasic flow, without evidence of deep venous thrombosis. Right popliteal vein could not be visualized. Left popliteal vein was compressible and Doppler evaluation was not possible. Impression: No evidence of deep venous thrombosis of the bilateral visualized lower extremity femoral popliteal venous system. Electronically Signed by Nicolas Gomez MD 06/24/2018 01:23 P
--- NOTE | 2018-06-24 13:36 | REP ---
Chest one-view HISTORY: Shortness of breath Comparison: 11/13/2017 The lungs are clear. The cardiac silhouette is enlarged. The pulmonary vasculature is normal in appearance. There are old right rib fractures. Impression: Cardiomegaly. Electronically Signed by Aly Delacruz MD 06/24/2018 01:28 P
[2018-06-24 14:00] LABS: HEMATOCRIT 38.8 % (36.0-47.0); HEMOGLOBIN 12.2 g/dl (12.0-15.5); MEAN CORPUSCULAR HEMOGLOBIN 25.2 pg (27.0-33.0); MEAN CORPUSCULAR HGB CONC 31.4 g/dl (32.0-36.5); MEAN CORPUSCULAR VOLUME 80.2 fl (80.0-96.0); PLATELET COUNT, AUTOMATED 358 10^3/uL (150-450); RED BLOOD COUNT 4.84 10^6/uL (4.00-5.40); WHITE BLOOD COUNT 16.3 10^3/uL (4.0-10.0)
[2018-06-24 14:13] LABS: INR 1.35; PARTIAL THROMBOPLASTIN TIME 22.4 SECONDS (25.4-37.6); PROTHROMBIN TIME 16.9 SECONDS (12.1-14.4)
--- NOTE | 2018-06-24 14:14 | ECGEPIP ---
Stationary ECG Study [facility] - ED Test Date: 2018-06-24 Pat Name: ROGELIO JACOBS Department: Room: - Gender: F Landscaping Specialist: : [id number] Requested By: BEATRIZ LADD Order Number: [id number] Reading MD: Roseanna Ray Measurements Intervals [place] Rate: 96 P: 67 CO: 144 QRS: 2 QRSD: 104 T: 85 QT: 342 QTc: 433 Interpretive Statements SINUS RHYTHM WITH SINUS ARRHYTHMIA NONSPECIFIC T-WAVE ABNORMALITY SIMILAR 11/13/17 Electronically Signed On 06-24-2018 14:13:39 EST by Roseanna Ray
[2018-06-24 14:21] LABS: ANISOCYTOSIS 2+; LYMPHOCYTES 2 % (16-52); MONOCYTES 2 % (0-8); NEUTROPHILS 92 % (35-75); PLATELET ESTIMATE NORMAL (NORMAL)
[2018-06-24 14:24] LABS: OVALOCYTES 1+
[2018-06-24 14:37] LABS: ALBUMIN 2.1 GM/DL (3.2-5.2); BILIRUBIN,DIRECT 0.1 MG/DL (0.0-0.2); BILIRUBIN,TOTAL 0.6 MG/DL (0.2-1.0); C REACTIVE PROTEIN QUANTITATIV 21.9 MG/DL (0.00-0.30); CALCIUM LEVEL 8.8 MG/DL (8.8-10.2); CREATININE FOR GFR 2.88 MG/DL (0.55-1.30); GLOMERULAR FILTRATION RATE 16.8 (>39); POTASSIUM SERUM 4.9 MEQ/L (3.5-5.1); TOTAL PROTEIN 7.3 GM/DL (6.4-8.2)
[2018-06-24 14:40] LABS: ERYTHROCYTE SEDIMENTATION RATE 70 mm/hr (0-30)
--- NOTE | 2018-06-24 15:10 | HPEPDOC ---
[facility] Medical History & Physical Date of Admission Jun 24, 2018 History and Physical ATTENDING: Dr. Murray PCP: Dr Sheffield cardiology Dr Méndez Urology Dr Cheung Wound Care Dr Nathen Wallis [place] CC: Skin issue. HPI: 77 yo F with history of recurrent lower extremity cellulitis, chronic lymphedema and chronic edema. States she follows as needed with wound care, Dr. Nathen Wallis [place]. She has not been seen there recently. The patient states she was feeling well until approximately 2 evenings ago when she had an episode of vomiting. This was followed by right lower extremity erythema, warmth and tenderness which has progressed up to the proximal thigh area. The patient states she had vomiting through last night. She has felt chilled and generally weak. She has not taken her temperature. She has been drinking fluids however not eating in the past 24-48 hours. The patient states she has had multiple similar episodes in the past where she was diagnosed with cellulitis. Typically her right leg becomes red, swollen and tender up to her thigh. The patient was last admitted for a similar issue 11/13/17. Denies any BUENO, CP, SOB, cough, palpitations, abdominal pain, D or changes in bowel habits. The patient states she has chronic urinary incontinence related to OAB, denies dysuria, frequency, urgency or hematuria. Upon presentation to the hospital the patient was found to have cellulitis, thus the hospitalist team was consulted. PMHx: Hypothyroid Dyslipidemia CKD3 baseline 0.8-1.0 Obesity. BMI 46.4 Chronic lower extremity edema/lymphedema Recurrent cellulitis lower extremities History of recurrent UTI Hypertension CAD Nephrolithiasis History of bladder cancer PSHX: Nephrolithiasis with history of cystoscopy and stent placement Lumbar laminectomy Hysterectomy Appendectomy D&C Left knee surgery 2 SOCHX: Resides in: [facility]Note 3], . Lives with significant other and his mother. Patient states she ambulates with a walker. She sleeps in a recliner chronically. Marital Status: Tobacco use: Denies ETOH: Denies Illicit Drugs: Denies Recent travel: Denies Advanced directives: None FAMHX: Father: , CAD, diabetes Siblings: 2 sisters with history of lung cancer and diabetes, brother with history of diabetic neuropathy. Children: One daughter , suicide. One daughter , homicide. ROS: As noted in HPI, otherwise 11pt ROS of systems reviewed and remarkable only for patient states she has rash under the breasts bilaterally and in the groin folds. PE: GEN: 77 yo F, appears stated age. Well-nourished, well developed. No acute distress. Alert and oriented x 3. Becomes somewhat agitated with questioning at times. HEENT: Normocephalic, atraumatic. Pupils are equal, round, and reactive to light. Extraocular movements are intact. No nystagmus appreciated. Sclera are nonicteric. Conjunctiva without injection. Nose midline. Nasal turbinates witho ut bogginess. No facial asymmetry. Dry appearing mucous membranes. Pharynx pink and moist, no cobblestoning. Neck supple, trachea midline. CHEST: Regular rate and rhythm, +S1, +S2 LUNGS: Clear to auscultation bilaterally. No wheezes, rales, or rhonchi. Breathing appears symmetric and easy. Patient is speaking in full sentences. No accessory muscle use. ABD: Round, soft, non-tender, non-distended. +Bowel sounds throughout. No rebound or guarding. No costovertebral angle tenderness. EXT: Pulses 2+ bilaterally dorsalis pedis and radial. No lower extremity edema appreciated. SKIN: Chronic lymphedema changes are noted of the bilateral lower extremities. Chronic skin changes are noted with skin scaling. There is an approximate 1 cm fluid-filled blister on the distal pretibial area right lower extremity with diffuse erythema progressing up to the mid thigh area. Skin is warm to the touch. Mild tenderness with palpation. The patient has erythematous rash under breast bilaterally and in bilateral groin folds. NEURO: Alert and oriented x 3. Cranial nerves III-XII are intact. No focal deficits appreciated. EKG: SINUS RHYTHM WITH SINUS ARRHYTHMIA NONSPECIFIC T-WAVE ABNORMALITY SIMILAR 11/13/17 Electronically Signed On 06-24-2018 14:13:39 EST by Roseanna Ray BLOOD CULTURES: 2 pending UA with reflex culture pending Wound culture pending Lower extremity ultrasound No evidence of deep venous thrombosis of the bilateral visualized lower extremity femoral popliteal venous system. Electronically Signed by Nicolas Gomez MD 06/24/2018 01:23 P CXR Cardiomegaly. Electronically Signed by Aly Delacruz MD 06/24/2018 01:28 P A&P: 77 yo F with history of recurrent lower extremity cellulitis, chronic lymphedema and chronic edema. States she follows as needed with wound care, Dr. Nathen Wallis [place]. She has not been seen there recently. The patient states she was feeling well until approximately 2 evenings ago when she had an episode of vomiting. This was followed by right lower extremity erythema, warmth and tenderness which has progressed up to the proximal thigh area. The patient states she had vomiting through last night. She has felt chilled and generally weak. She has not taken her temperature. She has been drinking fluids however not eating in the past 24-48 hours. The patient states she has had multiple similar episodes in the past where she was diagnosed with cellulitis. Typically her right leg becomes red, swollen and tender up to her thigh. The patient was last admitted for a similar issue 11/13/17. The patient will be admitted to PCU for at least [address] Murray's service. The patient is discussed and reviewed with Dr. Dunlap. Right lower extremity Cellulitis/Sepsis Temp 97.0 Heart rate 100 BP 108/55 WBC 16.3 Lactic acid 4.0 CRP 21.9 Bilateral lower extremity ultrasound negative. Blood culture 2 pending. UA with reflex culture pending. Wound culture pending. MRSA screen pending. IV fluids 1 L in ED. IV Zofran as needed. IV Unasyn in ED. The patient is noted with history of MRSA UTI 02/26, pseudomonas UTI 12/27. MRSA screen negative 11/27. Plan is for vancomycin IV (dosing as per clinical pharmacology). IV cefepime 1 g IV Q 12 hours, renally dosed. Trend CBC/CRP daily. Recheck lactic acid 1800 hrs. DANIELE/CKD3 Likely related to vomiting and poor oral intake. Serum creatinine noted to be 2.88. Baseline appears to be 0.8 1.0 IV fluids as above. Renal ultrasound pending. Recheck BMP at 1800 hrs. History of nephrolithiasis UA with reflex culture pending. Renal ultrasound pending. Hypothyroid Continue supplement. Dyslipidemia Continue statin. Morbid obesity. BMI 46.4. Complicates care. Dermatophytosis bilateral breast/groin folds Nystatin powder applied under breasts bilaterally and groin folds. Unsteady gait. Patient uses a walker at home. Request PT eval. Hypokalemia. Temporarily Hold supplement. Potassium noted to be 4.9. Hypomagnesemia. Check magnesium level. Hold supplement for now. Hypertension. No medications as outpatient CAD/history of stent Continue aspirin 81 mg daily. EKG with no acute changes. Serial CIP/troponin DVT prophylaxis. Subcutaneous heparin The patient is a full code Vital Signs Vital Signs Date Time Temp Pulse Resp B/P (MAP) Pulse Ox O2 Delivery O2 Flow Rate FiO2 06/24/18 12:39 06/24/18 12:06 97.0 100 18 98 Room Air Laboratory Data Labs 24H Laboratory Tests 2 06/24/18 13:44: Nucleated Red Blood Cells % (auto) 0.0, Neutrophils 92H, Band Neutrophils 4, Lymphocytes (Manual) 2L, Monocytes (Manual) 2, Platelet Estimate NORMAL, Anisocytosis 2+, Ovalocytes 1+, Erythrocyte Sedimentation Rate 70H, Prothrombin Time 16.9H, Prothromb Time International Ratio 1.35, Activated Partial Thromboplast Time 22.4L, Anion Gap 13, Glomerular Filtration Rate 16.8L, Lactic Acid Level 4.0*H, Calcium Level 8.8, Aspartate Amino Transf (AST/SGOT) 11, Alanine Aminotransferase (ALT/SGPT) 7L, Alkaline Phosphatase 93, Total Bilirubin 0.6, Direct Bilirubin 0.1, C-Reactive Protein, Quantitative 21.90H, Total Protein 7.3, Albumin 2.1L, Albumin/Globulin Ratio 0.40L CBC/BMP Laboratory Tests 06/24/18 13:44 Red Blood Count 4.84, Mean Corpuscular Volume 80.2, Mean Corpuscular Hemoglobin 25.2 L, Mean Corpuscular Hemoglobin Concent 31.4 L, Red Cell Distribution Width 18.9 H Microbiology Microbiology 06/24/18 Blood Culture, Received Pending 06/24/18 Blood Culture, Received Pending 06/24/18 Gram Stain, Received Pending 06/24/18 Wound Culture, Received Pending Home Medications Scheduled (Leg Cramp Relief) 1 Tab Tab, 1 TAB PO QHS Aspirin (Aspirin 81) 81 Mg Tab, 81 MG PO DAILY Ergocalciferol (Vitamin D) 50,000 Unit Cap, 50,000 UNIT PO MTHLY TAKES ON THE FIRST OF THE MONTH Ferrous Sulfate (Ferrous Sulfate) 325 Mg Tab, 325 MG PO DAILY Ibandronate Sodium (Ibandronate Sodium) 150 Mg Tab, 150 MG PO QMONTH TAKES ON THE 1ST OF THE MONTH Lactobacillus Acidophilus (Bacid) 1 Tab Tab, 1 TAB PO DAILY Levothyroxine Sodium (Synthroid) 125 Mcg Tab, 125 MCG PO QHS Magnesium Gluconate (Magnesium Gluconate) 500 Mg Tab, 500 MG PO QHS Potassium Chloride (Potassium Chloride ER) 10 Meq Tab, 10 MEQ PO DAILY Rosuvastatin Calcium (Crestor) 40 Mg Tab, 40 MG PO DAILY Scheduled PRN Hydroxyzine HCl (Hydroxyzine HCl) 10 Mg Tab, 10 MG PO BID PRN for ITCHING Allergies Coded Allergies: Phenobarbital (Verified Allergy, Intermediate, HIVES, 12/29/16) Sulfa Drugs (Verified Allergy, Intermediate, HIVES, 12/29/16) Camphor (Unverified Allergy, Unknown, SKIN BLISTERS, 01/11/17) Carboxymethylcellulose (Unverified Allergy, Unknown, SKIN BLISTERS, 01/11/17) Latex (Verified Allergy, Unknown, 12/29/16) Menthol (Unverified Allergy, Unknown, SKIN BLISTERS, 01/11/17) Methyl Salicylate (Unverified Allergy, Unknown, SKIN BLISTERS, 01/11/17) Pineapple (Verified Allergy, Unknown, 12/29/16) TAPE (Verified Allergy, Unknown, 12/29/16) Trolamine Salicylate (Unverified Allergy, Unknown, SKIN BLISTERS, 01/11/17) Clindamycin (Unverified Adverse Reaction, Intermediate, VOMITING, 12/29/16) Aisha Green Jun 24, 2018 15:10
[2018-06-24] MEDS ORDERED: ACETAMINOPHEN TAB 650MG DOSE (2X325MG) PO PRN (15:15)
[2018-06-24 15:30] LABS: MAGNESIUM LEVEL 1.8 MG/DL (1.8-2.4)
[2018-06-24] MEDS ORDERED: VANCOMYCIN HCL 1,000 MG, VIAL MATE ADAPTER 1 EACH in D5W 250 ML IV ONE (15:30)
[2018-06-24 16:58] VITALS: BP 113/54
[2018-06-24] MEDS: NS 1,000 ML IV SCH (18:03)
[2018-06-24 18:17] LABS: VENOUS BASE EXCESS -8.5 (-2.0-2.0); VENOUS HCO3 18.8 MEQ/L (23.0-27.0); VENOUS O2 SATURATION 62.2 % (60.0-80.0); VENOUS PARTIAL PRESSURE CO2 45.9 mmHg (38.0-50.0); VENOUS PH 7.231 UNITS (7.330-7.430); VENOUS TOTAL CO2 20.2 MEQ/L (24.0-28.0)
[2018-06-24] MEDS: ONDANSETRON 4MG/2ML VIAL (J2405) IV PRN (18:43)
[2018-06-24 18:45] LABS: BLOOD UREA NITROGEN 29 MG/DL (7-18); CARBON DIOXIDE LEVEL 19 MEQ/L (21-32); CHLORIDE LEVEL 101 MEQ/L (98-107); CPK CREATINE PHOSPHOKINASE 170 U/L (26-192); CREATININE FOR GFR 2.92 MG/DL (0.55-1.30); GLOMERULAR FILTRATION RATE 16.5 (>39); GLUCOSE, FASTING 115 MG/DL (70-100); MB/CK RELATIVE INDEX 1.35 (< OR =4); POTASSIUM SERUM 5.3 MEQ/L (3.5-5.1); SODIUM LEVEL 131 MEQ/L (136-145); TROPONIN I < 0.02 NG/ML (< 0.10)
[2018-06-24] MEDS: LEVOTHYROXINE 125MCG TABLET (0.125MG) PO SCH (19:54)
[2018-06-24] MEDS: CEFEPIME HCL 1 GM in D5W MINI-BAG PLUS 50 ML IV SCH (19:54)
[2018-06-24] MEDS: LACTOBACILLUS ACIDOPHILUS CAP (BACID) PO SCH (19:54)
[2018-06-24] MEDS: PERCOCET 5MG/325MG TAB PO PRN (19:56)
[2018-06-24] MEDS: NYSTATIN 100,000 UNITS/GM TOPICAL PWD 15 GM TOP SCH (19:57)
[2018-06-24 20:00] VITALS: BP 127/56
--- NOTE | 2018-06-24 20:02 | REP ---
Urinary tract sonography: History: Acute kidney injury. Findings: Scanning through the level of the urinary bladder showed no abnormality. Renal cortical echogenicity pattern is increased bilaterally. Right kidney measures 9.9 x 5.2 x 4.5 cm. Left renal dimensions are 12.0 x 5.7 x 5.4 cm. Scan quality is inhibited some degree by patient body habitus. There are multiple small cysts in the right kidney, the largest of which is in the lower pole measuring 1.3 cm in greatest diameter. On the left there is a 1.5 cm cyst in the lower pole. An second incidental note is made of sludge and stones in a dilated gallbladder. Impression: No evidence of hydronephrosis. Somewhat dilated gallbladder containing sludge and stones. Small bilateral renal cysts. Increased renal cortical echogenicity pattern consistent with chronic medical renal disease. Electronically Signed by Manuel Cardenas MD 06/25/2018 07:45 A
[2018-06-24] MEDS ORDERED: NS 1,000 ML IV ONE (20:30)
--- NOTE | 2018-06-24 21:22 | PHACANCOPD ---
PHARMACY VANCOMYCIN DOSING Pt Demographics Demographics Patient Age:77 , Weight:109.300 , Gender: female Adjusted Body Weight Events Past 24 Hours Events Past 24 Hours: NO: Dialysis, Diuretic Therapy, Change in CrCl, Fever, Elevation in WBC, Pending Diagnostics, Pending Procedures, Other Vancomycin Vancomycin indication: RECURRENT LE CELLULITIS Vancomycin Target Ranges: 15-20 mcg/ml Vancomycin Load Y/N: Yes Load Dose Date Time Vancomycin Load Dose: 1.5GM Date: 06/24/18 Time: 7808-7868 Vancomycin Dose Date: 06/25/18. Current Vancomycin Dose: [1GM IV Q24H 10AM] Intermittent Dosing?: No Labs Labs Laboratory Tests 06/24/18 13:44 Red Blood Count 4.84, Mean Corpuscular Volume 80.2, Mean Corpuscular Hemoglobin 25.2 L, Mean Corpuscular Hemoglobin Concent 31.4 L, Red Cell Distribution Width 18.9 H 06/24/18 18:04 Calcium Level 9.0, Total Creatine Kinase 170 Micro Microbiology 06/24/18 Blood Culture, Received Pending 06/24/18 Blood Culture, Received Pending 06/24/18 MRSA Screen, Received Pending 06/24/18 Gram Stain, Received Pending 06/24/18 Wound Culture, Received Pending Creatinine Clearance Date:06/24/18. Creatinine Clearance: [<20 ml/min]. Assessment and Plan Maintaining Current Dose?: Yes Reason for dose change: No Dose Change Pharmacist Note Pharmacist Note Date: 06/24/18. PharmD note: BASELINE SCR NOTED 1.0; ARF NOTED SECONDARY TO N/V, DEHYDRATION VANCO 1.5GM TOTAL LOAD SCHEDULED TONIGHT WE WILL CONTINUE WITH VANCO 1GM IV Q24H STARTING AT 10AM 06/25 FURTHER DOSING DEPENDENT ON AM SCR AFTER NACL [place] [facility] Jun 24, 2018 21:22
[2018-06-24] MEDS: HEPARIN SOD (PORCINE) 5000 UNITS/ML VIAL SC SCH (21:49)
[2018-06-24] MEDS ORDERED: VANCOMYCIN HCL 500 MG in D5W MINI-BAG PLUS 100 ML IV ONE (22:00)
[2018-06-24] MEDS: hydrOXYzine 10 MG TAB PO PRN (22:01)
[2018-06-24 23:59] VITALS: BP 122/59
[2018-06-25] MEDS: ONDANSETRON 4MG/2ML VIAL (J2405) IV PRN ×2 (00:49→11:29)
[2018-06-25] MEDS: PERCOCET 5MG/325MG TAB PO PRN ×5 (01:30→21:15)
[2018-06-25 04:00] VITALS: BP 129/60
[2018-06-25 04:58] LABS: HEMATOCRIT 31.9 % (36.0-47.0); MEAN CORPUSCULAR HEMOGLOBIN 24.8 pg (27.0-33.0); MEAN CORPUSCULAR HGB CONC 31.7 g/dl (32.0-36.5); MEAN CORPUSCULAR VOLUME 78.4 fl (80.0-96.0); PLATELET COUNT, AUTOMATED 364 10^3/uL (150-450); RED BLOOD COUNT 4.07 10^6/uL (4.00-5.40); WHITE BLOOD COUNT 15.9 10^3/uL (4.0-10.0)
[2018-06-25 05:04] LABS: HEMOGLOBIN 10.1 g/dl (12.0-15.5)
[2018-06-25 05:23] LABS: ALBUMIN 1.7 GM/DL (3.2-5.2); ALT/SGPT < 6 U/L (12-78); BILIRUBIN,TOTAL 0.5 MG/DL (0.2-1.0); BLOOD UREA NITROGEN 34 MG/DL (7-18); CARBON DIOXIDE LEVEL 19 MEQ/L (21-32); CHLORIDE LEVEL 105 MEQ/L (98-107); CREATININE FOR GFR 2.54 MG/DL (0.55-1.30); GLOMERULAR FILTRATION RATE 19.4 (>32); GLUCOSE, FASTING 119 MG/DL (70-100); MAGNESIUM LEVEL 1.6 MG/DL (1.8-2.4); POTASSIUM SERUM 4.7 MEQ/L (3.5-5.1); SODIUM LEVEL 132 MEQ/L (136-145); TOTAL PROTEIN 6.2 GM/DL (6.4-8.2)
[2018-06-25 05:28] LABS: LYMPHOCYTES 3 % (16-52); MONOCYTES 3 % (0-8); NEUTROPHILS 88 % (35-75)
[2018-06-25 05:29] LABS: ANISOCYTOSIS 2+; MICROCYTOSIS 1+; PLATELET ESTIMATE NORMAL (NORMAL)
[2018-06-25] MEDS: NS 1,000 ML IV SCH (06:22)
[2018-06-25] MEDS: HEPARIN SOD (PORCINE) 5000 UNITS/ML VIAL SC SCH ×3 (06:22→21:14)
[2018-06-25 07:39] VITALS: BP 121/58
[2018-06-25] MEDS: CEFEPIME HCL 1 GM in D5W MINI-BAG PLUS 50 ML IV SCH ×2 (07:48→21:13)
[2018-06-25] MEDS: ASPIRIN 81 MG ENTERIC TAB PO SCH (08:25)
[2018-06-25] MEDS: NYSTATIN 100,000 UNITS/GM TOPICAL PWD 15 GM TOP SCH ×2 (08:25→21:14)
[2018-06-25] MEDS: ROSUVASTATIN 10 MG TAB (CRESTOR) PO SCH (08:25)
[2018-06-25] MEDS: FERROUS SULFATE 325MG TAB PO SCH (08:25)
[2018-06-25] MEDS: LACTOBACILLUS ACIDOPHILUS CAP (BACID) PO SCH ×2 (08:25→21:13)
[2018-06-25] MEDS: VANCOMYCIN HCL 1,000 MG, VIAL MATE ADAPTER 1 EACH in D5W 250 ML IV SCH (09:39)
[2018-06-25 10:58] LABS: CPK CREATINE PHOSPHOKINASE 79 U/L (26-192); MB/CK RELATIVE INDEX 1.65 (< OR =4); TROPONIN I < 0.02 NG/ML (< 0.10)
[2018-06-25 11:26] VITALS: BP 127/60
--- NOTE | 2018-06-25 15:40 | IPNPDOC ---
Date Seen The patient was seen on 06/25/18. Progress Note SUBJECTIVE: Pt has no new complaints aside from discomfort in the right leg which is unchanged overnight. no fever or chills. difficulty ambulating due to pain. OBJECTIVE: PE: VITALS: PLS SEE BELOW GEN: 77 yo F, appears stated age. Well-nourished, well developed. No acute distress. Alert and oriented x 3. Becomes somewhat agitated with questioning at times. HEENT: Normocephalic, atraumatic. Pupils are equal, round, and reactive to light. Extraocular movements are intact. No nystagmus appreciated. Sclera are nonicteric. Conjunctiva without injection. Nose midline. Nasal turbinates without bogginess. No facial asymmetry. Dry appearing mucous membranes. Pharynx pink and moist, no cobblestoning. Neck supple, trachea midline. CHEST: Regular rate and rhythm, +S1, +S2 LUNGS: Clear to auscultation bilaterally. No wheezes, rales, or rhonchi. Breathing appears symmetric and easy. Patient is speaking in full sentences. No accessory muscle use. ABD: Round, soft, non-tender, non-distended. +Bowel sounds throughout. No rebound or guarding. No costovertebral angle tenderness. EXT: Pulses 2+ bilaterally dorsalis pedis and radial. No lower extremity edema appreciated. SKIN: Chronic lymphedema changes are noted of the bilateral lower extremities. Chronic skin changes are noted with skin scaling. There is an approximate 1 cm fluid-filled blister on the distal pretibial area right lower extremity with diffuse erythema progressing up to the mid thigh area. Skin is warm to the touch. Mild tenderness with palpation. The patient has erythematous rash under breast bilaterally and in bilateral groin folds. NEURO: Alert and oriented x 3. Cranial nerves III-XII are intact. No focal deficits appreciated. LABORATORY DATA, IMAGING STUDIES, MICROBIOLOGY: REVIEWED PLS SEE BELOW EKG: SINUS RHYTHM WITH SINUS ARRHYTHMIA NONSPECIFIC T-WAVE ABNORMALITY SIMILAR 11/13/17 Electronically Signed On 06-24-2018 14:13:39 EST by Roseanna Ray BLOOD CULTURES: 2 pending UA with reflex culture pending Wound culture pending Lower extremity ultrasound No evidence of deep venous thrombosis of the bilateral visualized lower extremity femoral popliteal venous system. Electronically Signed by Nicolas Gomez MD 06/24/2018 01:23 P CXR Cardiomegaly. Electronically Signed by Aly Delacruz MD 06/24/2018 01:28 P ASSESSMENT AND PLAN: 78 yo F with history of recurrent lower extremity cellulitis, chronic lymphedema and chronic edema. States she follows as needed with wound care, Dr. Nathen Wallis [place]. She has not been seen there recently. The patient states she was feeling well until approximately 2 evenings ago when she had an episode of vomiting. This was followed by right lower extremity erythema, warmth and tenderness which has progressed up to the proximal thigh area. The patient states she had vomiting through last night. She has felt chilled and generally weak. She has not taken her temperature. She has been drinking fluids however not eating in the past 24-48 hours.The patient states she has had multiple similar episodes in the past where she was diagnosed with cellulitis. Typically her right leg becomes red, swollen and tender up to her thigh. The patient was last admitted for a similar issue 11/13/17.Denies any BUENO, CP, SOB, cough, palpitations, abdominal pain, D or changes in bowel habits. The patient states she has chronic urinary incontinence related to OAB, denies dysuria, frequency, urgency or hematuria.Upon presentation to the hospital the patient was found to have cellulitis, thus the hospitalist team was consulted. Right lower extremity Cellulitis/Sepsis Temp 97.0 Heart rate 100 BP 108/55 WBC 16.3 Lactic acid 4.0 CRP 21.9 Bilateral lower extremity ultrasound negative. Blood culture 2 pending. UA with reflex culture pending. Wound culture pending. MRSA screen pending. IV fluids 1 L in ED. IV Zofran as needed. IV Unasyn in ED. The patient is noted with history of MRSA UTI 02/26, pseudomonas UTI 12/27. MRSA screen negative 11/27. Plan is for vancomycin IV (dosing as per clinical pharmacology). IV cefepime 1 g IV Q 12 hours, renally dosed. Trend CBC/CRP daily. Recheck lactic acid 1800 hrs. DANIELE/CKD3 Likely related to vomiting and poor oral intake. Serum creatinine noted to be 2.88. Baseline appears to be 0.8 1.0 IV fluids as above. Renal ultrasound pending. Recheck BMP at 1800 hrs. History of nephrolithiasis UA with reflex culture pending. Renal ultrasound pending. Hypothyroid Continue supplement. Dyslipidemia Continue statin. Morbid obesity. BMI 46.4. Complicates care. Dermatophytosis bilateral breast/groin folds Nystatin powder applied under breasts bilaterally and groin folds. Unsteady gait. Patient uses a walker at home. Request PT eval. Hypokalemia. Temporarily Hold supplement. Potassium noted to be 4.9. Hypomagnesemia. Check magnesium level. Hold supplement for now. Hypertension. No medications as outpatient CAD/history of stent Continue aspirin 81 mg daily. EKG with no acute changes. Serial CIP/troponin DVT prophylaxis. Subcutaneous heparin The patient is a full code VS, I&O, 24H, [facility] Vital Signs/I&O Vital Signs Date Time Temp Pulse Resp B/P (MAP) Pulse Ox O2 Delivery O2 Flow Rate FiO2 06/25/18 06:52 18 06/25/18 04:00 97.4 97 129/60 (83) 96 Room Air I&O- Last 24 Hours up to 6 AM 06/25/18 05:59 Intake Total 1750 ml Output Total 275 ml Balance 1475 ml Laboratory Data 24H LABS Laboratory Tests 2 06/24/18 13:44: Nucleated Red Blood Cells % (auto) 0.0, Neutrophils 92H, Band Neutrophils 4, Lymphocytes (Manual) 2L, Monocytes (Manual) 2, Platelet Estimate NORMAL, Anisocytosis 2+, Ovalocytes 1+, Erythrocyte Sedimentation Rate 70H, Prothrombin Time 16.9H, Prothromb Time International Ratio 1.35, Activated Partial Thromboplast Time 22.4L, Anion Gap 13, Glomerular Filtration Rate 16.8L, Lactic Acid Level 4.0*H, Calcium Level 8.8, Magnesium Level 1.8, Aspartate Amino Transf (AST/SGOT) 11, Alanine Aminotransferase (ALT/SGPT) 7L, Alkaline Phosphatase 93, Total Bilirubin 0.6, Direct Bilirubin 0.1, C-Reactive Protein, Quantitative 21.90H, Total Protein 7.3, Albumin 2.1L, Albumin/Globulin Ratio 0.40L 06/24/18 18:04: Anion Gap 11, Glomerular Filtration Rate 16.5L, Lactic Acid Level 3.8*H, Calcium Level 9.0, Blood Gas Bicarbonate Standard 17.0, Venous Blood pH 7.231L, Venous Blood Partial Pressure CO2 45.9, Venous Blood Partial Pressure O2 37.0, Venous Blood Total Carbon Dioxide 20.2L, Venous Blood HCO3 18.8L, Venous Blood Oxygen Saturation 62.2, Venous Blood Base Excess -8.5L, Blood Urea Nitrogen 29H, Creatinine 2.92H, Sodium Level 131L, Potassium Level 5.3H, Chloride Level 101, Carbon Dioxide Level 19L, Total Creatine Kinase 170, Creatine Kinase MB 2.0, Creatine Kinase MB Relative Index 1.35, Troponin I < 0.02 06/24/18 22:15: Lactic Acid Followup at 4 Hours 2.4*H 06/24/18 23:21: Urine Color YELLOW, Urine Appearance CLOUDYH, Urine pH 6.0, Urine Specific [place] 1.014, Urine Protein 2+H, Urine Glucose (UA) NEGATIVE, Urine Ketones NEGATIVE, Urine Blood 2+H, Urine Nitrite NEGATIVE, Urine Bilirubin NEGATIVE, Urine Urobilinogen 0.2, Urine Leukocyte Esterase 3+H, Urine WBC (Auto) TNTCH, Urine RBC (Auto) 41H, Urine Hyaline Casts (Auto) 0, Urine Bacteria (Auto) 1+H, Urine Squamous Epithelial Cells 2, Urine Mucus (Auto) SMALL, Urine Yeast-Like Cells (Auto) SMALLH, Urine Sperm (Auto) 06/25/18 04:38: Nucleated Red Blood Cells % (auto) 0.0, Neutrophils 88H, Band Neutrophils 6, Lymphocytes (Manual) 3L, Monocytes (Manual) 3, Platelet Estimate NORMAL, Anisocytosis 2+, Microcytosis 1+, Anion Gap 8, Glomerular Filtration Rate 19.4L, Lactic Acid Level 1.4, Blood Urea Nitrogen 34H, Creatinine 2.54H, Sodium Level 132L, Potassium Level 4.7, Chloride Level 105, Carbon Dioxide Level 19L, Calcium Level 8.0L, Aspartate Amino Transf (AST/SGOT) 12, Alanine Aminotransferase (ALT/SGPT) < 6L, Alkaline Phosphatase 86, Total Bilirubin 0.5, Total Protein 6.2L, Albumin 1.7L, Magnesium Level 1.6L, C-Reactive Protein, Quantitative 27.50H, Albumin/Globulin Ratio 0.38L CBC/BMP Laboratory Tests 06/24/18 13:44 Red Blood Count 4.84, Mean Corpuscular Volume 80.2, Mean Corpuscular Hemoglobin 25.2 L, Mean Corpuscular Hemoglobin Concent 31.4 L, Red Cell Distribution Width 18.9 H 06/24/18 18:04 Calcium Level 9.0, Total Creatine Kinase 170 06/25/18 04:38 Red Blood Count 4.07, Mean Corpuscular Volume 78.4 L, Mean Corpuscular Hemoglobin 24.8 L, Mean Corpuscular Hemoglobin Concent 31.7 L, Red Cell Distribution Width 18.5 H, Calcium Level 8.0 L, Aspartate Amino Transf (AST/SGOT) 12, Alanine Aminotransferase (ALT/SGPT) < 6 L, Alkaline Phosphatase 8 6, Total Bilirubin 0.5, Total Protein 6.2 L, Albumin 1.7 L Microbiology Microbiology 06/24/18 Blood Culture, Received Pending 06/24/18 Blood Culture, Received Pending 06/24/18 MRSA Screen, Received Pending 06/24/18 Urine Culture, Received Pending 06/24/18 Gram Stain, Received Pending 06/24/18 Wound Culture, Received Pending TARIQ CASE MD Jun 25, 2018 07:21
[2018-06-25 16:00] VITALS: BP 116/58
[2018-06-25 16:17] LABS: CPK CREATINE PHOSPHOKINASE 95 U/L (26-192); MB/CK RELATIVE INDEX 1.79 (< OR =4); TROPONIN I < 0.02 NG/ML (< 0.10)
[2018-06-25 20:00] VITALS: BP 107/55
[2018-06-25] MEDS: LEVOTHYROXINE 125MCG TABLET (0.125MG) PO SCH (21:13)
[2018-06-25] MEDS: hydrOXYzine 10 MG TAB PO PRN (23:26)
[2018-06-25 23:59] VITALS: BP 104/50
[2018-06-26 04:00] VITALS: BP 103/51
[2018-06-26] MEDS: PERCOCET 5MG/325MG TAB PO PRN ×3 (04:36→13:15)
[2018-06-26] MEDS ORDERED: MAG SULF 1GM/100ML (MAG RUN) 1 GM in APPROPRIATE DILUENT 1 EA IV ONE ×2 (05:00→08:00)
[2018-06-26] MEDS: HEPARIN SOD (PORCINE) 5000 UNITS/ML VIAL SC SCH ×3 (05:10→21:09)
[2018-06-26 05:20] LABS: HEMATOCRIT 31.8 % (36.0-47.0); HEMOGLOBIN 10.2 g/dl (12.0-15.5); MEAN CORPUSCULAR HEMOGLOBIN 24.9 pg (27.0-33.0); MEAN CORPUSCULAR HGB CONC 32.1 g/dl (32.0-36.5); MEAN CORPUSCULAR VOLUME 77.6 fl (80.0-96.0); PLATELET COUNT, AUTOMATED 377 10^3/uL (150-450); WHITE BLOOD COUNT 12.6 10^3/uL (4.0-10.0)
[2018-06-26 05:48] LABS: ANISOCYTOSIS 2+; EOSINOPHILS 2 % (0-5); LYMPHOCYTES 4 % (16-52); MONOCYTES 3 % (0-8); NEUTROPHILS 91 % (35-75); PLATELET ESTIMATE NORMAL (NORMAL)
[2018-06-26 05:49] LABS: OVALOCYTES 1+; POLYCHROMASIA 1+
[2018-06-26 06:02] LABS: ALBUMIN 1.6 GM/DL (3.2-5.2); BILIRUBIN,TOTAL 0.4 MG/DL (0.2-1.0); C REACTIVE PROTEIN QUANTITATIV 36.5 MG/DL (0.00-0.30); CALCIUM LEVEL 7.7 MG/DL (8.8-10.2); CREATININE FOR GFR 2.28 MG/DL (0.55-1.30); GLOMERULAR FILTRATION RATE 21.9 (>32); MAGNESIUM LEVEL 1.7 MG/DL (1.8-2.4); POTASSIUM SERUM 4.5 MEQ/L (3.5-5.1); TOTAL PROTEIN 6.1 GM/DL (6.4-8.2)
[2018-06-26 08:00] VITALS: BP 130/60
[2018-06-26] MEDS: FERROUS SULFATE 325MG TAB PO SCH (08:33)
[2018-06-26] MEDS: LACTOBACILLUS ACIDOPHILUS CAP (BACID) PO SCH ×3 (08:34→18:26)
[2018-06-26] MEDS: ASPIRIN 81 MG ENTERIC TAB PO SCH (08:34)
[2018-06-26] MEDS: CEFEPIME HCL 1 GM in D5W MINI-BAG PLUS 50 ML IV SCH ×2 (08:35→20:15)
[2018-06-26] MEDS: ROSUVASTATIN 10 MG TAB (CRESTOR) PO SCH (08:35)
[2018-06-26] MEDS: NYSTATIN 100,000 UNITS/GM TOPICAL PWD 15 GM TOP SCH ×2 (09:00→21:00)
--- NOTE | 2018-06-26 10:15 | PHACANCOPD ---
PHARMACY VANCOMYCIN DOSING Pt Demographics Demographics Patient Age:78 , Weight:112.200 , Gender: female Adjusted Body Weight Vancomycin Vancomycin indication: RECURRENT LE CELLULITIS Vancomycin Target Ranges: 15-20 mcg/ml Vancomycin Load Y/N: Yes Load Dose Date Time Vancomycin Load Dose: 1.5GM Date: 06/24/18 Time: 3456-0861 Vancomycin Dose Date: 06/25/18. Current Vancomycin Dose: [1GM IV Q24H 10AM] Intermittent Dosing?: No Labs Micro Microbiology 06/24/18 Blood Culture - Preliminary, Resulted No growth after 24 hours . All specim... 06/24/18 Blood Culture - Preliminary, Resulted No growth after 24 hours . All specim... 06/24/18 MRSA Screen - Final, Complete Staph.aureus Methicillin Resis 06/24/18 Urine Culture - Final, Complete Yeast Like Organism 06/24/18 Gram Stain - Final, Resulted 06/24/18 Wound Culture - Preliminary, Resulted Staphylococcus Aureus Streptococcus Group C Corynebacterium Species Creatinine Clearance Date:06/24/18. Creatinine Clearance: [<20 ml/min]. Assessment and Plan Maintaining Current Dose?: Yes Reason for dose change: No Dose Change Pharmacist Note Pharmacist Note 06/26/18: Trough level this morning resulted at 17.5mcg/ml. Preliminary groin cultures growing heavy staph aureus and strep group C - sensitivities pending. MRSA screen was positive. Scr continues to improve at 2.28 today from 2.92 at start of therapy. We will maintain the patient on her current regimen of 1g IV Q24H and schedule a follow-up trough to be drawn 06/28/18 @0900, which will be more reflective of steady state drawn prior to the 5th dose given the patient's BMI. We will continue to monitor and adjust dosing if needed. Date: 06/24/18. PharmD note: BASELINE SCR NOTED 1.0; ARF NOTED SECONDARY TO N/V, DEHYDRATION VANCO 1.5GM TOTAL LOAD SCHEDULED TONIGHT WE WILL CONTINUE WITH VANCO 1GM IV Q24H STARTING AT 10AM 06/25 FURTHER DOSING DEPENDENT ON AM SCR AFTER NACL [place] [facility] Jun 26, 2018 10:15
[2018-06-26] MEDS: VANCOMYCIN HCL 1,000 MG, VIAL MATE ADAPTER 1 EACH in D5W 250 ML IV SCH (10:19)
[2018-06-26 12:20] VITALS: BP 113/67
[2018-06-26 14:00] VITALS: BP 109/59
--- NOTE | 2018-06-26 14:42 | IPNPDOC ---
Date Seen The patient was seen on 06/26/18. Progress Note SUBJECTIVE: Pt refusing to turn, reposition due to pain despite discussions about pressure ulcers. She refuses to work with physical therapy due to pain. Afebrile and no significant change in her pain. OBJECTIVE: PE: VITALS: PLS SEE BELOW GEN: 77 yo F, appears stated age. Well-nourished, well developed. No acute distress. Alert and oriented x 3. Becomes somewhat agitated with questioning at times. HEENT: Normocephalic, atraumatic. Pupils are equal, round, and reactive to light. Extraocular movements are intact. No nystagmus appreciated. Sclera are nonicteric. Conjunctiva without injection. Nose midline. Nasal turbinates without bogginess. No facial asymmetry. Dry appearing mucous membranes. Pharynx pink and moist, no cobblestoning. Neck supple, trachea midline. CHEST: Regular rate and rhythm, +S1, +S2 LUNGS: Clear to auscultation bilaterally. No wheezes, rales, or rhonchi. Breathing appears symmetric and easy. Patient is speaking in full sentences. No accessory muscle use. ABD: Round, soft, non-tender, non-distended. +Bowel sounds throughout. No rebound or guarding. No costovertebral angle tenderness. EXT: Pulses 2+ bilaterally dorsalis pedis and radial. No lower extremity edema appreciated. SKIN: Chronic lymphedema changes are noted of the bilateral lower extremities. Chronic skin changes are noted with skin scaling. There is an approximate 1 cm f luid-filled blister on the distal pretibial area right lower extremity with diffuse erythema progressing up to the mid thigh area. Skin is warm to the touch. Mild tenderness with palpation. The patient has erythematous rash under breast bilaterally and in bilateral groin folds. NEURO: Alert and oriented x 3. Cranial nerves III-XII are intact. No focal deficits appreciated. LABORATORY DATA, IMAGING STUDIES, MICROBIOLOGY: REVIEWED PLS SEE BELOW EKG: SINUS RHYTHM WITH SINUS ARRHYTHMIA NONSPECIFIC T-WAVE ABNORMALITY SIMILAR 11/13/17 Electronically Signed On 06-24-2018 14:13:39 EST by Roseanna Ray BLOOD CULTURES: 2 pending UA with reflex culture pending Wound culture pending Lower extremity ultrasound No evidence of deep venous thrombosis of the bilateral visualized lower extrem ity femoral popliteal venous system. Electronically Signed by Nicolas Gomez MD 06/24/2018 01:23 P CXR Cardiomegaly. Electronically Signed by Aly Delacruz MD 06/24/2018 01:28 P ASSESSMENT AND PLAN: 78 yo F with history of recurrent lower extremity cellulitis, chronic lymphedema and chronic edema. States she follows as needed with wound care, Dr. Nathen [place]. She has not been seen there recently. The patient states she was feeling well until approximately 2 evenings ago when she had an episode of vomiting. This was followed by right lower extremity erythema, warmth and tenderness which has progressed up to the proximal thigh area. The patient states she had vomiting through last night. She has felt chilled and generally weak. She has not taken her temperature. She has been drinking fluids however not eating in the past 24-48 hours.The patient states she has had multiple similar episodes in the past where she was diagnosed with cellulitis. Typically her right leg becomes red, swollen and tender up to her thigh. The patient was last admitted for a similar issue 11/13/17.Denies any BUENO, CP, SOB, cough, palpitations, abdominal pain, D or changes in bowel habits. The patient states she has chronic urinary incontinence related to OAB, denies dysuria, frequency, urgency or hematuria.Upon presentation to the hospital the patient was found to have cellulitis, thus the hospitalist team was consulted. Right lower extremity Cellulitis/Sepsis Temp 97.0 Heart rate 100 BP 108/55 WBC 16.3 Lactic acid 4.0 CRP 21.9 Bilateral lower extremity ultrasound negative. Blood culture 2 pending. UA with reflex culture pending. Wound culture pending. MRSA screen pending. IV fluids 1 L in ED. IV Zofran as needed. IV Unasyn in ED. The patient is noted with history of MRSA UTI 02/26, pseudomonas UTI 12/27. MRSA screen negative 11/27. Plan is for vancomycin IV (dosing as per clinical pharmacology). IV cefepime 1 g IV Q 12 hours, renally dosed. Trend CBC/CRP daily. Recheck lactic acid 1800 hrs. DANIELE/CKD3 Likely related to vomiting and poor oral intake. Serum creatinine noted to be 2.88. Baseline appears to be 0.8 1.0 IV fluids as above. Renal ultrasound pending. Recheck BMP at 1800 hrs. History of nephrolithiasis UA with reflex culture pending. Renal ultrasound pending. Hypothyroid Continue supplement. Dyslipidemia Continue statin. Morbid obesity. BMI 46.4. Complicates care. Dermatophytosis bilateral breast/groin folds Nystatin powder applied under breasts bilaterally and groin folds. Unsteady gait. Patient uses a walker at home. Request PT eval. Hypokalemia. Temporarily Hold supplement. Potassium noted to be 4.9. Hypomagnesemia. Check magnesium level. Hold supplement for now. Hypertension. No medications as outpatient CAD/history of stent Continue aspirin 81 mg daily. EKG with no acute changes. Serial CIP/troponin DVT prophylaxis. Subcutaneous heparin The patient is a full code VS, I&O, 24H, Fishbone Vital Signs/I&O Vital Signs Date Time Temp Pulse Resp B/P (MAP) Pulse Ox O2 Delivery O2 Flow Rate FiO2 06/26/18 13:15 18 06/26/18 12:20 97.1 88 113/67 (82) 96 Room Air 06/25/18 23:30 3.0 I&O- Last 24 Hours up to 6 AM 06/26/18 05:59 Intake Total 1190 ml Output Total 950 ml Balance 240 ml Laboratory Data 24H LABS Laboratory Tests 2 06/26/18 05:06: Nucleated Red Blood Cells % (auto) 0.0, Neutrophils 91H, Lymphocytes (Manual) 4L, Monocytes (Manual) 3, Eosinophils (Manual) 2, Platelet Estimate NORMAL, Polychromasia 1+, Anisocytosis 2+, Ovalocytes 1+, Anion Gap 9, Glomerular Filtration Rate 21.9L, Blood Urea Nitrogen 37H, Creatinine 2.28H, Sodium Level 135L, Potassium Level 4.5, Chloride Level 106, Carbon Dioxide Level 20L, Calcium Level 7.7L, Aspartate Amino Transf (AST/SGOT) 11, Alanine Aminotransferase (ALT/SGPT) 7L, Alkaline Phosphatase 114, Total Bilirubin 0.4, Total Protein 6.1L, Albumin 1.6L, Magnesium Level 1.7L, C-Reactive Protein, Quantitative 36.50H, Albumin/Globulin Ratio 0.36L 06/26/18 09:18: Vancomycin Level Trough 17.5 CBC/BMP Laboratory Tests 06/26/18 05:06 Red Blood Count 4.10, Mean Corpuscular Volume 77.6 L, Mean Corpuscular Hemoglobin 24.9 L, Mean Corpuscular Hemoglobin Concent 32.1, Red Cell Distribution Width 18.6 H, Calcium Level 7.7 L, Aspartate Amino Transf (AST/SGOT) 11, Alanine Aminotransferase (ALT/SGPT) 7 L, Alkaline Phosphatase 114, Total Bilirubin 0.4, Total Protein 6.1 L, Albumin 1.6 L Microbiology Microbiology 06/24/18 Blood Culture - Preliminary, Resulted No Growth after 48 hours. All Specime... 06/24/18 Blood Culture - Preliminary, Resulted No Growth after 48 hours. All Specime... 06/24/18 MRSA Screen - Final, Complete Staph.aureus Methicillin Resis 06/24/18 Urine Culture - Final, Complete Yeast Like Organism 06/24/18 Gram Stain - Final, Resulted 06/24/18 Wound Culture - Preliminary, Resulted Staphylococcus Aureus Streptococcus Group C Corynebacterium Species TARIQ CASE MD Jun 26, 2018 14:42
[2018-06-26] MEDS: LEVOTHYROXINE 125MCG TABLET (0.125MG) PO SCH (21:09)
[2018-06-26] MEDS: hydrOXYzine 10 MG TAB PO PRN (21:09)
[2018-06-26 22:00] VITALS: BP 142/56
[2018-06-27] MEDS: HEPARIN SOD (PORCINE) 5000 UNITS/ML VIAL SC SCH ×3 (05:29→21:00)
[2018-06-27 05:47] LABS: HEMATOCRIT 30.5 % (36.0-47.0); HEMOGLOBIN 9.8 g/dl (12.0-15.5); MEAN CORPUSCULAR HEMOGLOBIN 24.9 pg (27.0-33.0); MEAN CORPUSCULAR HGB CONC 32.1 g/dl (32.0-36.5); MEAN CORPUSCULAR VOLUME 77.4 fl (80.0-96.0); PLATELET COUNT, AUTOMATED 378 10^3/uL (150-450); RED BLOOD COUNT 3.94 10^6/uL (4.00-5.40); WHITE BLOOD COUNT 11.5 10^3/uL (4.0-10.0)
[2018-06-27 06:00] VITALS: BP 136/66
[2018-06-27 06:23] LABS: EOSINOPHILS 2 % (0-5); LYMPHOCYTES 10 % (16-52); MONOCYTES 4 % (0-8); NEUTROPHILS 84 % (35-75)
[2018-06-27 06:25] LABS: ALBUMIN 1.4 GM/DL (3.2-5.2); ALT/SGPT < 6 U/L (12-78); ANISOCYTOSIS 1+; BILIRUBIN,TOTAL 0.3 MG/DL (0.2-1.0); BLOOD UREA NITROGEN 33 MG/DL (7-18); CARBON DIOXIDE LEVEL 19 MEQ/L (21-32); CHLORIDE LEVEL 109 MEQ/L (98-107); CREATININE FOR GFR 1.91 MG/DL (0.55-1.30); GLOMERULAR FILTRATION RATE 26.9 (>32); GLUCOSE, FASTING 77 MG/DL (70-100); MAGNESIUM LEVEL 2.4 MG/DL (1.8-2.4); OVALOCYTES 1+; POTASSIUM SERUM 4.1 MEQ/L (3.5-5.1); SODIUM LEVEL 138 MEQ/L (136-145); TOTAL PROTEIN 5.9 GM/DL (6.4-8.2)
[2018-06-27 06:28] LABS: MICROCYTOSIS 1+; PLATELET CLUMPS SMALL AMT; PLATELET ESTIMATE INCREASED (NORMAL); POIKILOCYTOSIS 1+
[2018-06-27] MEDS: ROSUVASTATIN 10 MG TAB (CRESTOR) PO SCH (08:54)
[2018-06-27] MEDS: ASPIRIN 81 MG ENTERIC TAB PO SCH (08:54)
[2018-06-27] MEDS: FERROUS SULFATE 325MG TAB PO SCH (08:54)
[2018-06-27] MEDS: CEFEPIME HCL 1 GM in D5W MINI-BAG PLUS 50 ML IV SCH ×2 (08:54→19:55)
[2018-06-27] MEDS: LACTOBACILLUS ACIDOPHILUS CAP (BACID) PO SCH ×3 (08:54→17:47)
--- NOTE | 2018-06-27 09:46 | IPNPDOC ---
Date Seen The patient was seen on 06/27/18. Progress Note SUBJECTIVE: c/o dry heaving, without vomiting or abdominal pain. refusing pain clinic and states that if she does not move, she has tolerable pain. Pt refusing to turn, reposition due to pain despite discussions about pressure ulcers. She refuses to work with physical therapy due to pain. Afebrile and no significant change in her pain. OBJECTIVE: PE: VITALS: PLS SEE BELOW GEN: 77 yo F, appears stated age. Well-nourished, well developed. No acute distress. Alert and oriented x 3. Becomes somewhat agitated with questioning at times. HEENT: Normocephalic, atraumatic. Pupils are equal, round, and reactive to light. Extraocular movements are intact. No nystagmus appreciated. Sclera are nonicteric. Conjunctiva without injection. Nose midline. Nasal turbinates wi thout bogginess. No facial asymmetry. Dry appearing mucous membranes. Pharynx pink and moist, no cobblestoning. Neck supple, trachea midline. CHEST: Regular rate and rhythm, +S1, +S2 LUNGS: Clear to auscultation bilaterally. No wheezes, rales, or rhonchi. Breathing appears symmetric and easy. Patient is speaking in full sentences. No accessory muscle use. ABD: Round, soft, non-tender, non-distended. +Bowel sounds throughout. No rebound or guarding. No costovertebral angle tenderness. EXT: Pulses 2+ bilaterally dorsalis pedis and radial. No lower extremity edema appreciated. SKIN: Chronic lymphedema changes are noted of the bilateral lower extremities. Chronic skin changes are noted with skin scaling. There is an approximate 1 cm fluid-filled blister on the distal pretibial area right lower extremity with diffuse erythema progressing up to the mid thigh area. Skin is warm to the touch . Mild tenderness with palpation. The patient has erythematous rash under breast bilaterally and in bilateral groin folds. NEURO: Alert and oriented x 3. Cranial nerves III-XII are intact. No focal deficits appreciated. LABORATORY DATA, IMAGING STUDIES, MICROBIOLOGY: REVIEWED PLS SEE BELOW EKG: SINUS RHYTHM WITH SINUS ARRHYTHMIA NONSPECIFIC T-WAVE ABNORMALITY SIMILAR 11/13/17 Electronically Signed On 06-24-2018 14:13:39 EST by Roseanna Ray BLOOD CULTURES: 2 pending UA with reflex culture pending Wound culture pending Lower extremity ultrasound No evidence of deep venous thrombosis of the bilateral visualized lower ex tremity femoral popliteal venous system. Electronically Signed by Nicolas Gomez MD 06/24/2018 01:23 P CXR Cardiomegaly. Electronically Signed by Aly Delacruz MD 06/24/2018 01:28 P ASSESSMENT AND PLAN: 78 yo F with history of recurrent lower extremity c ellulitis, chronic lymphedema and chronic edema. States she follows as needed with wound care, [facility]. She has not been seen there recently. The patient states she was feeling well until approximately 2 evenings ago when she had an episode of vomiting. This was followed by right lower extremity erythema, warmth and tenderness which has progressed up to the pro ximal thigh area. The patient states she had vomiting through last night. She has felt chilled and generally weak. She has not taken her temperature. She has been drinking fluids however not eating in the past 24-48 hours.The patient states she has had multiple similar episodes in the past where she was diagnosed with cellulitis. Typically her right leg becomes red, swollen and tender up to her thigh. The patient was last admitted for a similar issue 11/13/17.Denies any BUENO, CP, SOB, cough, palpitations, abdominal pain, D or changes in bowel habits. The patient states she has chronic urinary incontinence related to OAB, denies dysuria, frequency, urgency or hematuria.Upon presentation to the hospital the patient was found to have cellulitis, thus the hospitalist team was consulted. Right lower extremity Cellulitis/Sepsis Temp 97.0 Heart rate 100 BP 108/55 WBC 16.3 Lactic acid 4.0 CRP 21.9 Bilateral lower extremity ultrasound negative. Blood culture 2 pending. UA with reflex culture pending. Wound culture pending. MRSA screen pending. IV fluids 1 L in ED. IV Zofran as needed. IV Unasyn in ED. The patient is noted with history of MRSA UTI 02/26, pseudomonas UTI 12/27. MRSA screen negative 11/27. Plan is for vancomycin IV (dosing as per clinical pharmacology). IV cefepime 1 g IV Q 12 hours, renally dosed. Trend CBC/CRP daily. Recheck lactic acid 1800 hrs. DANIELE/CKD3 Likely related to vomiting and poor oral intake. Serum creatinine noted to be 2.88. Baseline appears to be 0.8 1.0 IV fluids as above. Renal ultrasound pending. Recheck BMP at 1800 hrs. History of nephrolithiasis UA with reflex culture pending. Renal ultrasound pending. Hypothyroid Continue supplement. Dyslipidemia Continue statin. Morbid obesity. BMI 46.4. Complicates care. Dermatophytosis bilateral breast/groin folds Nystatin powder applied under breasts bilaterally and groin folds. Unsteady gait. Patient uses a walker at home. Request PT eval. Hypokalemia. Temporarily Hold supplement. Potassium noted to be 4.9. Hypomagnesemia. Check magnesium level. Hold supplement for now. Hypertension. No medications as outpatient CAD/history of stent Continue aspirin 81 mg daily. EKG with no acute changes. Serial CIP/troponin DVT prophylaxis. Subcutaneous heparin The patient is a full code VS, I&O, 24H, Fishbone Vital Signs/I&O Vital Signs Date Time Temp Pulse Resp B/P (MAP) Pulse Ox O2 Delivery O2 Flow Rate FiO2 06/26/18 22:00 97.0 85 20 142/56 (84) 96 Room Air 06/25/18 23:30 3.0 I&O- Last 24 Hours up to 6 AM 06/27/18 05:59 Intake Total 1360 ml Output Total 1200 ml Balance 160 ml Laboratory Data 24H LABS Laboratory Tests 2 06/26/18 09:18: Vancomycin Level Trough 17.5 Microbiology Microbiology 06/24/18 Blood Culture - Preliminary, Resulted No Growth after 48 hours. All Specime... 06/24/18 Blood Culture - Preliminary, Resulted No Growth after 48 hours. All Specime... 06/24/18 MRSA Screen - Final, Complete Staph.aureus Methicillin Resis 06/24/18 Urine Culture - Final, Complete Yeast Like Organism 06/24/18 Gram Stain - Final, Complete 06/24/18 Wound Culture - Final, Complete Staph.aureus Methicillin Resis Streptococcus Group C Corynebacterium Species Proteus Mirabilis TARIQ CASE MD Jun 27, 2018 05:33
[2018-06-27] MEDS ORDERED: ONDANSETRON 4MG/2ML VIAL (J2405) IV ONE (10:15)
[2018-06-27] MEDS: VANCOMYCIN HCL 1,000 MG, VIAL MATE ADAPTER 1 EACH in D5W 250 ML IV SCH (10:15)
[2018-06-27] MEDS: NYSTATIN 100,000 UNITS/GM TOPICAL PWD 15 GM TOP SCH ×2 (10:15→21:00)
[2018-06-27] MEDS: PERCOCET 5MG/325MG TAB PO PRN ×4 (10:16→22:28)
[2018-06-27 14:00] VITALS: BP 110/55
[2018-06-27] MEDS: LEVOTHYROXINE 125MCG TABLET (0.125MG) PO SCH (20:59)
[2018-06-27] MEDS: hydrOXYzine 10 MG TAB PO PRN (20:59)
[2018-06-27 22:00] VITALS: BP 136/52
[2018-06-28] MEDS: HEPARIN SOD (PORCINE) 5000 UNITS/ML VIAL SC SCH ×3 (05:24→21:01)
[2018-06-28 06:00] VITALS: BP 101/53
[2018-06-28 06:14] LABS: BASO # 0.1 10^3/uL (0.0-0.2); BASO % 0.6 % (0.0-1.0); EOS # 0.4 10^3/uL (0.0-0.50); EOS % 4.6 % (0.0-3.0); HEMATOCRIT 32.8 % (36.0-47.0); HEMOGLOBIN 10.5 g/dl (12.0-15.5); LYMPH # 1.1 10^3/uL (1.5-4.5); LYMPH % 13.6 % (24.0-44.0); MEAN CORPUSCULAR HEMOGLOBIN 24.9 pg (27.0-33.0); MEAN CORPUSCULAR VOLUME 77.9 fl (80.0-96.0); NEUTROPHILS # 5.5 10^3/uL (1.8-7.7); NEUTROPHILS % 68.5 % (36.0-66.0); PLATELET COUNT, AUTOMATED 378 10^3/uL (150-450); RED BLOOD COUNT 4.21 10^6/uL (4.00-5.40); WHITE BLOOD COUNT 8.1 10^3/uL (4.0-10.0)
[2018-06-28 06:33] LABS: ALBUMIN 1.4 GM/DL (3.2-5.2); ALT/SGPT < 6 U/L (12-78); BILIRUBIN,TOTAL 0.2 MG/DL (0.2-1.0); BLOOD UREA NITROGEN 35 MG/DL (7-18); CALCIUM LEVEL 8.7 MG/DL (8.8-10.2); CARBON DIOXIDE LEVEL 19 MEQ/L (21-32); CHLORIDE LEVEL 110 MEQ/L (98-107); CREATININE FOR GFR 1.88 MG/DL (0.55-1.30); GLOMERULAR FILTRATION RATE 27.4 (>32); GLUCOSE, FASTING 65 MG/DL (70-100); MAGNESIUM LEVEL 2.5 MG/DL (1.8-2.4); POTASSIUM SERUM 4.4 MEQ/L (3.5-5.1); SODIUM LEVEL 137 MEQ/L (136-145); TOTAL PROTEIN 6.1 GM/DL (6.4-8.2)
[2018-06-28] MEDS: CEFEPIME HCL 1 GM in D5W MINI-BAG PLUS 50 ML IV SCH (08:28)
[2018-06-28] MEDS: NYSTATIN 100,000 UNITS/GM TOPICAL PWD 15 GM TOP SCH ×2 (08:28→20:03)
[2018-06-28] MEDS: FERROUS SULFATE 325MG TAB PO SCH (08:28)
[2018-06-28] MEDS: ASPIRIN 81 MG ENTERIC TAB PO SCH (08:28)
[2018-06-28] MEDS: ROSUVASTATIN 10 MG TAB (CRESTOR) PO SCH (08:28)
[2018-06-28] MEDS: LACTOBACILLUS ACIDOPHILUS CAP (BACID) PO SCH ×3 (08:28→17:24)
--- NOTE | 2018-06-28 09:09 | IPNPDOC ---
Date Seen The patient was seen on 06/28/18. Progress Note SUBJECTIVE: on air mattress. slept better last night. no issues per rn .still c/o dry heaving, without vomiting or abdominal pain. refusing pain clinic and states that if she does not move, she has tolerable pain. Pt refusing to turn, reposition due to pain despite discussions about pressure ulcers. She refuses to work with physical therapy due to pain but wants nothing changed. Afebrile and no significant change in her pain. OBJECTIVE: PE: VITALS: PLS SEE BELOW GEN: 77 yo F, appears stated age. Well-nourished, well developed. No acute distress. Alert and oriented x 3. Becomes somewhat agitated with questioning at times. HEENT: Normocephalic, atraumatic. Pupils are equal, round, and reactive to light. Extraocular movements are intact. No nystagmus appreciated. Sclera are nonicteric. Conjunctiva without injection. Nose midline. Nasal turbinates without bogginess. No facial asymmetry. Dry appearing mucous membranes. Pharynx pink and moist, no cobblestoning. Neck supple, trachea midline. CHEST: Regular rate and rhythm, +S1, +S2 LUNGS: Clear to auscultation bilaterally. No wheezes, rales, or rhonchi. Breathing appears symmetric and easy. Patient is speaking in full sentences. No accessory muscle use. ABD: Round, soft, non-tender, non-distended. +Bowel sounds throughout. No rebound or guarding. No costovertebral angle tenderness. EXT: Pulses 2+ bilaterally dorsalis pedis and radial. No lower extremity edema appreciated. SKIN: Chronic lymphedema changes are noted of the bilateral lower extremities. Chronic skin changes are noted with skin scaling. There is an approximate 1 cm fluid-filled blister on the distal pretibial area right lower extremity with diffuse erythema progressing up to the mid thigh area. Skin is warm to the touch. Mild tenderness with palpation. The patient has erythematous rash under breast bilaterally and in bilateral groin folds. NEURO: Alert and oriented x 3. Cranial nerves III-XII are intact. No focal deficits appreciated. LABORATORY DATA, IMAGING STUDIES, MICROBIOLOGY: REVIEWED PLS SEE BELOW EKG: SINUS RHYTHM WITH SINUS ARRHYTHMIA NONSPECIFIC T-WAVE ABNORMALITY SIMILAR 11/13/17 Electronically Signed On 06-24-2018 14:13:39 EST by Roseanna Ray BLOOD CULTURES: 2 pending UA with reflex culture pending Wound culture pending Lower extremity ultrasound No evidence of deep venous thrombosis of the bilateral visualized lower extremity femoral popliteal venous system. Electronically Signed by Nicolas Gomez MD 06/24/2018 01:23 P CXR Cardiomegaly. Electronically Signed by Aly Delacruz MD 06/24/2018 01:28 P ASSESSMENT AND PLAN: 78 yo F with history of recurrent lower extremity cellulitis, chronic lymphedema and chronic edema. States she [facility] as [facility] She has not been seen there recently. The patient states she was feeling well until approximately 2 evenings ago when she had an episode of vomiting. This was followed by right lower extremity erythema, warmth and tenderness which has progressed up to the proximal thigh area. The patient states she had vomiting through last night. She has felt chilled and generally weak. She has not taken her temperature. She has been drinking fluids however not eating in the past 24-48 hours.The patient sta bre she has had multiple similar episodes in the past where she was diagnosed with cellulitis. Typically her right leg becomes red, swollen and tender up to her thigh. The patient was last admitted for a similar issue 11/13/17.Denies any BUENO, CP, SOB, cough, palpitations, abdominal pain, D or changes in bowel habits. The patient states she has chronic urinary incontinence related to OAB, denies dysuria, frequency, urgency or hematuria.Upon presentation to the hospital the patient was found to have cellulitis, thus the hospitalist team was consulted. Right lower extremity Cellulitis/Sepsis Temp 97.0 Heart rate 100 BP 108/55 WBC 16.3 Lactic acid 4.0 CRP 21.9 Bilateral lower extremity ultrasound negative. Blood culture 2 pending. UA with reflex culture pending. Wound culture pending. MRSA screen pending. IV fluids 1 L in ED. IV Zofran as needed. IV Unasyn in ED. The patient is noted with history of MRSA UTI 02/26, pseudomonas UTI 12/27. MRSA screen negative 11/27. Plan is for vancomycin IV (dosing as per clinical pharmacology). IV cefepime 1 g IV Q 12 hours, renally dosed. Trend CBC/CRP daily. ID consulted. DANIELE/CKD3 Likely related to vomiting and poor oral intake. Serum creatinine noted to be 2.88. Baseline appears to be 0.8 1.0 IV fluids as above. Renal ultrasound pending. Recheck BMP at 1800 hrs. History of nephrolithiasis UA with reflex culture pending. Renal ultrasound pending. Hypothyroid Continue supplement. Dyslipidemia Continue statin. Morbid obesity. BMI 46.4. Complicates care. Dermatophytosis bilateral breast/groin folds Nystatin powder applied under breasts bilaterally and groin folds. Unsteady gait. Patient uses a walker at home. Request PT eval. Hypokalemia. Temporarily Hold supplement. Potassium noted to be 4.9. Hypomagnesemia. Check magnesium level. Hold supplement for now. Hypertension. No medications as outpatient CAD/history of stent Continue aspirin 81 mg daily. EKG with no acute changes. Serial CIP/troponin DVT prophylaxis. Subcutaneous heparin The patient is a full code VS, I&O, 24H, [facility] Vital Signs/I&O Vital Signs Date Time Temp Pulse Resp B/P (MAP) Pulse Ox O2 Delivery O2 Flow Rate FiO2 06/28/18 06:00 97.1 85 16 101/53 (69) 93 Room Air 06/25/18 23:30 3.0 I&O- Last 24 Hours up to 6 AM 06/28/18 06:00 Intake Total 900 ml Output Total 1000 ml Balance -100 ml Laboratory Data 24H LABS Laboratory Tests 2 06/28/18 05:26: Anion Gap 8, Glomerular Filtration Rate 27.4L, Blood Urea Nitrogen 35H, Creatinine 1.88H, Sodium Level 137, Potassium Level 4.4, Chloride Level 110H, Carbon Dioxide Level 19L, Calcium Level 8.7L, Aspartate Amino Transf (AST/SGOT) 14, Alanine Aminotransferase (ALT/SGPT) < 6L, Alkaline Phosphatase 165H, Total Bilirubin 0.2, Total Protein 6.1L, Albumin 1.4L, Magnesium Level 2.5H, C- Reactive Protein, Quantitative 22.60H, Albumin/Globulin Ratio 0.30L 06/28/18 05:32: Immature Granulocyte % (Auto) 0.7, White Blood Count 8.1, Red Blood Count 4.21, Hemoglobin 10.5L, Hematocrit 32.8L, Mean Corpuscular Volume 77.9L, Mean Corpuscular Hemoglobin 24.9L, Mean Corpuscular Hemoglobin Concent 32.0, Red Cell Distribution Width 19.2H, Platelet Count 378, Neutrophils (%) (Auto) 68.5H, Lymphocytes (%) (Auto) 13.6L, Monocytes (%) (Auto) 12.0H, Eosinophils (%) (Auto) 4.6H, Basophils (%) (Auto) 0.6, Neutrophils # (Auto) 5.5, Lymphocytes # (Auto) 1.1L, Monocytes # (Auto) 1.0H, Eosinophils # (Auto) 0.4, Basophils # (Auto) 0.1, Nucleated Red Blood Cells % (auto) 0.0 CBC/BMP Laboratory Tests 06/28/18 05:26 Calcium Level 8.7 L, Aspartate Amino Transf (AST/SGOT) 14, Alanine Aminotransferase (ALT/SGPT) < 6 L, Alkaline Phosphatase 165 H, Total Bilirubin 0.2, Total Protein 6.1 L, Albumin 1.4 L 06/28/18 05:32 Red Blood Count 4.21, Mean Corpuscular Volume 77.9 L, Mean Corpuscular Hemoglobin 24.9 L, Mean Corpuscular Hemoglobin Concent 32.0, Red Cell Distribution Width 19.2 H, Neutrophils (%) (Auto) 68.5 H, Lymphocytes (%) (Auto) 13.6 L, Monocytes (%) (Auto) 12.0 H, Eosinophils (%) (Auto) 4.6 H, Basophils (%) (Auto) 0.6, Neutrophils # (Auto) 5.5, Lymphocytes # (Auto) 1.1 L, Monocytes # (Auto) 1.0 H, Eosinophils # (Auto) 0.4, Basophils # (Auto) 0.1 Microbiology Microbiology 06/24/18 Blood Culture - Preliminary, Resulted No Growth after 72 hours. All specime... 06/24/18 Blood Culture - Preliminary, Resulted No Growth after 72 hours. All specime... 06/24/18 MRSA Screen - Final, Complete Staph.aureus Methicillin Resis 06/24/18 Urine Culture - Final, Complete Yeast Like Organism 06/24/18 Gram Stain - Final, Complete 06/24/18 Wound Culture - Final, Complete Staph.aureus Methicillin Resis Streptococcus Group C Corynebacterium Species Proteus Mirabilis TARIQ CASE MD Jun 28, 2018 08:04
[2018-06-28] MEDS: VANCOMYCIN HCL 750 MG, VIAL MATE ADAPTER 1 EACH in D5W 250 ML IV SCH (11:42)
[2018-06-28 14:00] VITALS: BP 114/59
[2018-06-28] MEDS: PERCOCET 5MG/325MG TAB PO PRN ×2 (14:12→20:03)
--- NOTE | 2018-06-28 15:22 | PHACANCOPD ---
PHARMACY VANCOMYCIN DOSING Pt Demographics Demographics Patient Age:78 , Weight:123.900 , Gender: female Adjusted Body Weight Events Past 24 Hours Events Past 24 Hours: YES: Change in CrCl Vancomycin Vancomycin indication: RECURRENT LE CELLULITIS Vancomycin Target Ranges: 15-20 mcg/ml Vancomycin Load Y/N: Yes Load Dose Date Time Vancomycin Load Dose: 1.5GM Date: 06/24/18 Time: 8652-7259 Vancomycin Dose Date: 06/25/18. Current Vancomycin Dose: [1GM IV Q24H 10AM] Intermittent Dosing?: No Labs Micro Microbiology 06/24/18 Blood Culture - Preliminary, Resulted No Growth after 72 hours. All specime... 06/24/18 Blood Culture - Preliminary, Resulted No Growth after 72 hours. All specime... 06/24/18 MRSA Screen - Final, Complete Staph.aureus Methicillin Resis 06/24/18 Urine Culture - Final, Complete Yeast Like Organism 06/24/18 Gram Stain - Final, Complete 06/24/18 Wound Culture - Final, Complete Staph.aureus Methicillin Resis Streptococcus Group C Corynebacterium Species Proteus Mirabilis Creatinine Clearance Date:06/24/18. Creatinine Clearance: [<20 ml/min]. Assessment and Plan Maintaining Current Dose?: No Reason for dose change: Trough too high Pharmacist Note Pharmacist Note 06/28/2018: Trough level this morning resulted at 22.0 mcg/ml. Changed vanco to 750mg IV Q24 hours to start @1200. Will check patient's Scr in am to determine time of next trough. 06/26/18: Trough level this morning resulted at 17.5mcg/ml. Preliminary groin cultures growing heavy staph aureus and strep group C - sensitivities pending. MRSA screen was positive. Scr continues to improve at 2.28 today from 2.92 at start of therapy. We will maintain the patient on her current regimen of 1g IV Q24H and schedule a follow-up trough to be drawn 06/28/18 @0900, which will be more reflective of steady state drawn prior to the 5th dose given the patient's BMI. We will continue to monitor and adjust dosing if needed. Date: 06/24/18. PharmD note: BASELINE SCR NOTED 1.0; ARF NOTED SECONDARY TO N/V, DEHYDRATION VANCO 1.5GM TOTAL LOAD SCHEDULED TONIGHT WE WILL CONTINUE WITH VANCO 1GM IV Q24H STARTING AT 10AM 06/25 FURTHER DOSING DEPENDENT ON AM SCR AFTER NACL [facility] Jun 28, 2018 15:22
--- NOTE | 2018-06-28 15:29 | PHACANCOPD ---
PHARMACY VANCOMYCIN DOSING Pt Demographics Demographics Patient Age:78 , Weight:123.900 , Gender: female Adjusted Body Weight 76.86kg Events Past 24 Hours Events Past 24 Hours: YES: Change in CrCl Vancomycin Vancomycin indication: RECURRENT LE CELLULITIS Vancomycin Target Ranges: 15-20 mcg/ml Vancomycin Load Y/N: Yes Load Dose Date Time Vancomycin Load Dose: 1.5GM Date: 06/24/18 Time: 2185-8741 Vancomycin Dose Date: 06/28/18. Current Vancomycin Dose: [750mg IV Q24H 1200] Intermittent Dosing?: No Labs Micro Microbiology 06/24/18 Blood Culture - Preliminary, Resulted No Growth after 72 hours. All specime... 06/24/18 Blood Culture - Preliminary, Resulted No Growth after 72 hours. All specime... 06/24/18 MRSA Screen - Final, Complete Staph.aureus Methicillin Resis 06/24/18 Urine Culture - Final, Complete Yeast Like Organism 06/24/18 Gram Stain - Final, Complete 06/24/18 Wound Culture - Final, Complete Staph.aureus Methicillin Resis Streptococcus Group C Corynebacterium Species Proteus Mirabilis Creatinine Clearance Date:06/28/18. Creatinine Clearance: [18.9 ml/min]. Pending Labs Item Value Date Time Vancomycin Level Trough 22.0 UG/ML H 06/28/18 0910 Creatinine 1.88 MG/DL H 06/28/18 0526 White Blood Count 8.1 10^3/uL 06/28/18 0532 White Blood Count 11.5 10^3/uL H 06/27/18 0530 White Blood Count 12.6 10^3/uL H 06/26/18 0506 White Blood Count 16.3 10^3/uL H 06/24/18 1344 Creatinine 1.91 MG/DL H 06/27/18 0530 Creatinine 2.28 MG/DL H 06/26/18 0506 Vancomycin Level Trough 17.5 UG/ML 06/26/18 0918 Assessment and Plan Maintaining Current Dose?: No Reason for dose change: Trough too high Pharmacist Note Pharmacist Note 06/28/18: patient's trough level this morning resulted at 22 mcg/ml. changed vanco to 750mg IV q24 hours. will check patient's Scr level in am to determine timing of next trough-bpj 06/26/18: Trough level this morning resulted at 17.5mcg/ml. Preliminary groin cultures growing heavy staph aureus and strep group C - sensitivities pending. MRSA screen was positive. Scr continues to improve at 2.28 today from 2.92 at start of therapy. We will maintain the patient on her current regimen of 1g IV Q24H and schedule a follow-up trough to be drawn 06/28/18 @0900, which will be more reflective of steady state drawn prior to the 5th dose given the patient's BMI. We will continue to monitor and adjust dosing if needed. Date: 06/24/18. PharmD note: BASELINE SCR NOTED 1.0; ARF NOTED SECONDARY TO N/V, DEHYDRATION VANCO 1.5GM TOTAL LOAD SCHEDULED TONIGHT WE WILL CONTINUE WITH VANCO 1GM IV Q24H STARTING AT 10AM 06/25 FURTHER DOSING DEPENDENT ON AM SCR AFTER NAC[facility] Jun 28, 2018 15:29
[2018-06-28] MEDS ORDERED: FLUCONAZOLE 200 MG in APPROPRIATE DILUENT 1 EA IV ONE (17:15)
[2018-06-28] MEDS: LevoFLOXacin 250 MG TABLET PO SCH (17:24)
[2018-06-28] MEDS: LEVOTHYROXINE 125MCG TABLET (0.125MG) PO SCH (20:02)
[2018-06-28] MEDS: hydrOXYzine 10 MG TAB PO PRN (20:02)
--- NOTE | 2018-06-28 20:56 | CR ---
DATE OF CONSULTATION: 06/28/2018 REASON FOR CONSULTATION: Recurrent lower extremity cellulitis. Asked to consult by Dr. Murray HISTORY OF PRESENT ILLNESS: Mrs. Rea is 77-year-old, morbidly obese female with a history of recurrent lower extremity cellulitis, morbid obesity and chronic lymphedema. The patient presented to the hospital with burning and pain in the right lower extremity associated with vomiting. The patient noticed that she had lower extremity erythema, warmth and tenderness that progressed all the way to the upper thigh area. She has a history of recurrent cellulitis of the lower extremity and knew this was her problem; and therefore, she came to the emergency room. She denied any headache, chest pain, shortness of breath, cough, palpitation, abdominal pain or change in bowel habits. She has a history of chronic urinary incontinence due to overactive bladder. She denied any dysuria or hematuria. She denied having any fever or chills associated with her illness. On admission, she had a white count of 16.3, was started on vancomycin and cefepime with improvement in her white count. She continues complaining of severe pain in the right leg. The patient also is very miserable and rude to staff. PAST MEDICAL HISTORY IS SIGNIFICANT FOR: 1. Morbid obesity. 2. Recurrent lower extremity cellulitis 3. Hypothyroidism 4. Dyslipidemia 5. Chronic kidney disease 6. Obesity 7. Chronic lower extremity edema with lymphedema, recurrent cellulitis. 8. History of recurrent urinary tract infection (UTI). 9. Hypertension. 10. Coronary artery disease 11. Nephrolithiasis. 12. History of bladder cancer. PAST SURGICAL HISTORY: Nephrolithiasis, cystoscopy and stent placement, lumbar laminectomy, hysterectomy, appendectomy, dilatation and curettage, left knee surgery from work accident. SOCIAL HISTORY: She lives in [place]. She is a . She lives with her boyfriend and his mother. Her boyfriend is in his 50s. She ambulates with a walker at home. She sleeps in a recliner. She denies alcohol or tobacco use. FAMILY HISTORY: Two sisters with lung cancer and diabetes. Brother with diabetes. REVIEW OF SYSTEMS: The patient complains of severe pain in the right leg, edema. No shortness of breath. No chest pain. No fever, chills or night sweats. No cough or shortness of breath. PHYSICAL EXAMINATION: She is a healthy-looking female in no acute distress, but irritable. HEENT: Oropharynx is clear. She has dry scaly rash around both her nostrils and upper lip that she relates is due to her chronic runny nose. Oropharynx is clear. No thrush. No lesions. Heart: Normal S1-S2. No murmurs, rubs or gallops. Lungs are clear. No wheezes or rhonchi anteriorly. Decreased breath sounds at the bases. Abdomen: Morbidly obese, soft, nontender. Extremities: +2 lower extremity edema with cellulitis of the right lower extremity. There is a large blister on her big toe with a hemorrhagic fluid, extension of erythema all the way to the knee and patchy erythema all the way to the mid thigh. Inguinal folds bilaterally have erythema. There is a crack underneath her abdominal fold from fungal infection. Erythema underneath both breasts. Neurologic exam: Alert, oriented x3. Cranial nerves intact. Motor strength: Can move all extremities. LABORATORY: White count on admission was 16.3, today was 8.1 after 4 days of antibiotic, hemoglobin 10.5, hematocrit 32.8, platelets 378, 68% neutrophils, 14% lymphocytes, 12% lymphocytes, 5% eosinophils. Erythrocyte sedimentation rate (ESR) was 70 on admission, sodium 137, potassium 4.4, chloride 110, bicarbonate 19, BUN 35, creatinine 1.88 down from 2.88, glucose 65, calcium 8.7, magnesium 2.5, AST 14, ALT6, alkaline phosphatase 165, C-reactive protein (CRP) 22.6 down from 36.5. MEDICATIONS: - vancomycin 750 mg IV every 24 hours - cefepime 1 gram IV every 12 hours - Percocet as needed - probiotic one tablet by mouth with meals - aspirin 81 mg daily - ferrous sulfate 325 mg daily - Crestor 40 mg by mouth daily - Mycostatin powder under breasts and groin area twice a day - Percocet one tablet by mouth every 4 hours as needed - hydroxyzine 10 mg by mouth twice a day as needed - Zofran as needed. Cultures growing had methicillin-resistant Staphylococcus aureus (MRSA), group C streptococcus, Corynebacterium Proteus. Blood cultures two sets were negative after 72 hours. Nasopharyngeal culture positive for methicillin-resistant Staphylococcus aureus (MRSA). Urine clean catch culture has yeastlike organism, 30,000 colonies. Urinalysis has too numerous to count white cells and 41 red cells. IMPRESSION: This is an 78-year-old female who was admitted with recurrent lower extremity cellulitis, which is complicated with hemorrhagic blisters. Most likely methicillin-resistant Staphylococcus aureus (MRSA) could be polymicrobial. She had a culture done from the groin area, which had Proteus and Group C streptococcus. The patient on IV vancomycin and cefepime. Cefepime could be switched to a quinolone. The patient also has evidence of yeast infection with mucocutaneous candidiasis in both groins. She may have also Marianne urinary tract infection (UTI). States she has burning all over in the area. She has been treated with Mycostatin powder, but otherwise no antifungal treatment. PLAN: Discontinue IV cefepime switched to by mouth Levaquin 250 mg daily for gram-negative coverage. Continue IV vancomycin for methicillin-resistant Staphylococcus aureus (MRSA) and Group C streptococcus. Continue Mycostatin powder for mucocutaneous candidiasis under the breasts and groin area. The patient will be also given one dose of IV fluconazole 200 mg daily and then switched to oral fluconazole to finish a 7-day course.
[2018-06-28 22:00] VITALS: BP 114/54
[2018-06-29] MEDS: PERCOCET 5MG/325MG TAB PO PRN ×2 (02:27→06:38)
[2018-06-29] MEDS: HEPARIN SOD (PORCINE) 5000 UNITS/ML VIAL SC SCH ×3 (05:41→20:59)
[2018-06-29] MEDS: LevoFLOXacin 250 MG TABLET PO SCH (05:41)
[2018-06-29 06:00] VITALS: BP 110/56
[2018-06-29 06:56] LABS: BASO # 0.1 10^3/uL (0.0-0.2); BASO % 0.6 % (0.0-1.0); EOS # 0.4 10^3/uL (0.0-0.50); EOS % 4.1 % (0.0-3.0); HEMATOCRIT 35.6 % (36.0-47.0); LYMPH # 1.1 10^3/uL (1.5-4.5); LYMPH % 9.9 % (24.0-44.0); MEAN CORPUSCULAR HEMOGLOBIN 24.9 pg (27.0-33.0); MEAN CORPUSCULAR HGB CONC 30.9 g/dl (32.0-36.5); MEAN CORPUSCULAR VOLUME 80.7 fl (80.0-96.0); MONO # 1.2 10^3/uL (0.0-0.8); MONO % 11.3 % (0.0-5.0); NEUTROPHILS # 7.8 10^3/uL (1.8-7.7); NEUTROPHILS % 72.8 % (36.0-66.0); PLATELET COUNT, AUTOMATED 392 10^3/uL (150-450); RED BLOOD COUNT 4.41 10^6/uL (4.00-5.40); WHITE BLOOD COUNT 10.8 10^3/uL (4.0-10.0)
[2018-06-29 07:15] LABS: ALBUMIN 1.5 GM/DL (3.2-5.2); ALT/SGPT < 6 U/L (12-78); BILIRUBIN,TOTAL 0.2 MG/DL (0.2-1.0); BLOOD UREA NITROGEN 35 MG/DL (7-18); CARBON DIOXIDE LEVEL 17 MEQ/L (21-32); CHLORIDE LEVEL 111 MEQ/L (98-107); CREATININE FOR GFR 1.92 MG/DL (0.55-1.30); GLOMERULAR FILTRATION RATE 26.8 (>32); GLUCOSE, FASTING 69 MG/DL (70-100); MAGNESIUM LEVEL 2.3 MG/DL (1.8-2.4); POTASSIUM SERUM 4.6 MEQ/L (3.5-5.1); SODIUM LEVEL 140 MEQ/L (136-145)
[2018-06-29] MEDS: FERROUS SULFATE 325MG TAB PO SCH (08:31)
[2018-06-29] MEDS: LACTOBACILLUS ACIDOPHILUS CAP (BACID) PO SCH ×3 (08:31→17:59)
[2018-06-29] MEDS: NYSTATIN 100,000 UNITS/GM TOPICAL PWD 15 GM TOP SCH ×2 (08:31→20:59)
[2018-06-29] MEDS: ASPIRIN 81 MG ENTERIC TAB PO SCH (08:31)
[2018-06-29] MEDS: ROSUVASTATIN 10 MG TAB (CRESTOR) PO SCH (08:31)
[2018-06-29] MEDS: VANCOMYCIN HCL 750 MG, VIAL MATE ADAPTER 1 EACH in D5W 250 ML IV SCH (12:05)
[2018-06-29 14:00] VITALS: BP 107/55
[2018-06-29] MEDS: LEVOTHYROXINE 125MCG TABLET (0.125MG) PO SCH (20:58)
[2018-06-29] MEDS: hydrOXYzine 10 MG TAB PO PRN (20:59)
[2018-06-29 22:00] VITALS: BP 102/60
[2018-06-30] MEDS: LevoFLOXacin 250 MG TABLET PO SCH (04:51)
[2018-06-30] MEDS: PERCOCET 5MG/325MG TAB PO PRN (04:51)
[2018-06-30] MEDS: HEPARIN SOD (PORCINE) 5000 UNITS/ML VIAL SC SCH ×3 (04:56→22:18)
[2018-06-30 06:00] VITALS: BP 92/55
--- NOTE | 2018-06-30 06:01 | IPNPDOC ---
Text Note Date of Service The patient was seen on 06/29/18. NOTE SUBJECTIVE: Continues to have severe pain in both the legs and so is unable to move even side to side in bed. refusing to work with PT. No fever or chills, no chest pain or sob, No abdominal pain, nausea or vomiting or diarrhea. OBJECTIVE: VITALS: PLS SEE BELOW GEN: 77 yo F, appears stated age. Well-nourished, well developed. No acute distress. Alert and oriented x 3. Becomes somewhat agitated with questioning at times. HEENT: Normocephalic, atraumatic. Pupils are equal, round, and reactive to light. Extraocular movements are intact. No nystagmus appreciated. Sclera are nonicteric. Conjunctiva without injection. Nose midline. Nasal turbinates wi thout bogginess. No facial asymmetry. Dry appearing mucous membranes. Pharynx pink and moist, no cobblestoning. Neck supple, trachea midline. CHEST: Regular rate and rhythm, +S1, +S2 LUNGS: Clear to auscultation bilaterally. No wheezes, rales, or rhonchi. Breathing appears symmetric and easy. Patient is speaking in full sentences. No accessory muscle use. ABD: Round, soft, non-tender, non-distended. +Bowel sounds throughout. No rebound or guarding. No costovertebral angle tenderness. EXT: Pulses 2+ bilaterally dorsalis pedis and radial. No lower extremity edema appreciated. SKIN: Chronic venous stasis and lymphedema changes are noted on the bilateral lower extremities. Chronic dry skin with skin scaling. There is an approximate 1 cm fluid and blood filled blister on big toe of the right leg. right lower extremity with diffuse erythema involving the dorsum and planter aspect of the foot and progressing up to the knee. Skin is warm to the touch. severe tenderness with palpation or with moving. The patient has erythematous rash under breast bilaterally and in bilateral groin folds. NEURO: Alert and oriented x 3. Cranial nerves III-XII are intact. No focal deficits appreciated. LABORATORY DATA, IMAGING STUDIES, MICROBIOLOGY: REVIEWED PLS SEE BELOW ASSESSMENT AND PLAN: 78 yo F with history of recurrent lower extremity cellulitis, chronic lymphedema and chronic venous stasis, CHF with EF of 50% with regional wall motion abnormalities and grade 1 diastolic dysfunction, moderate pulmonary hypertension, morbid obesity, hypertension, CAD, CKD 3, hypothyroid, nephrolithiasis, cholelithiasis, hyperlipidemia States [facility] has not been [facility] there recently. The patient states she was feeling well until approximately 2 evenings ago when she had an episode of vomiting. This was followed by right lower extremity erythema, warmth and tenderness which has progressed up to the proximal thigh area. The patient states she had vomiting through last night. She has felt chilled and generally weak. She has not taken her temperature. She has been drinking fluids however not eating in the past 24-[address] ates she has had multiple similar episodes in the past where she was diagnosed with cellulitis. Typically her right leg becomes red, swollen and tender up to her thigh. The patient was last admitted for a similar issue 11/13/17.Denies any BUENO, CP, SOB, cough, palpitations, abdominal pain, D or changes in bowel habits. The patient states she has chronic urinary incontinence related to OAB, denies dysuria, frequency, urgency or hematuria.Upon presentation to the hospital the patient was found to have cellulitis, thus the hospitalist team was consulted. Right lower extremity Cellulitis/Sepsis Wound culture with multiple organisms. srepto, proteus, corynebacterium, sapht MRSA screen positive Seen by ID On vanco and levofloxacin DANIELE/CKD3 most probably due to infection and sepssi. slight improvement. CHF systolic and diastolic Has EF of 50% and diastolic dysfunction Difficult to estimate fluid status due to morbid obesity most probably euvolemic Moderate pulmonary hypertension due to CHF and morbid obesity History of nephrolithiasis Renal ultrasound no stones noted Hypothyroid Continue synthroid Dyslipidemia Continue statin. Morbid obesity. BMI 46.4. Complicates care. Dermatophytosis bilateral breast/groin folds Nystatin powder applied under breasts bilaterally and groin folds. Unsteady gait. Patient uses a walker at home. Request PT eval. Patient refusing to work because of pain Hyperlipidemia continue statin Hypertension. No medications as outpatient CAD/history of stent Continue aspirin 81 mg daily, statin DVT prophylaxis. Subcutaneous heparin VS,Fishbone, I+O VS, Fishbone, I+O Laboratory Tests 06/29/18 06:26 Red Blood Count 4.41, Mean Corpuscular Volume 80.7, Mean Corpuscular Hemoglobin 24.9 L, Mean Corpuscular Hemoglobin Concent 30.9 L, Red Cell Distribution Width 19.3 H, Neutrophils (%) (Auto) 72.8 H, Lymphocytes (%) (Auto) 9.9 L, Monocytes (%) (Auto) 11.3 H, Eosinophils (%) (Auto) 4.1 H, Basophils (%) (Auto) 0.6, Neutrophils # (Auto) 7.8 H, Lymphocytes # (Auto) 1.1 L, Monocytes # (Auto) 1.2 H, Eosinophils # (Auto) 0.4, Basophils # (Auto) 0.1, Calcium Level 9.0, Aspartate Amino Transf (AST/SGOT) 10, Alanine Aminotransferase (ALT/SGPT) < 6 L, Alkaline Phosphatase 198 H, Total Bilirubin 0.2, Total Protein 6.0 L, Albumin 1.5 L Vital Signs Date Time Temp Pulse Resp B/P (MAP) Pulse Ox O2 Delivery O2 Flow Rate FiO2 06/29/18 07:18 16 06/29/18 06:00 98.4 86 110/56 (74) 96 Room Air 06/25/18 23:30 3.0 I&O- Last 24 Hours up to 6 AM 06/29/18 06:00 Intake Total 1440 ml Output Total 750 ml Balance 690 ml MINDY ALLEN MD Jun 29, 2018 14:20
[2018-06-30 06:22] LABS: BASO # 0.1 10^3/uL (0.0-0.2); BASO % 0.5 % (0.0-1.0); EOS # 0.4 10^3/uL (0.0-0.50); EOS % 3.7 % (0.0-3.0); HEMATOCRIT 32.5 % (36.0-47.0); HEMOGLOBIN 10.4 g/dl (12.0-15.5); LYMPH # 1.2 10^3/uL (1.5-4.5); MEAN CORPUSCULAR HEMOGLOBIN 24.5 pg (27.0-33.0); MEAN CORPUSCULAR VOLUME 76.5 fl (80.0-96.0); MONO # 1.1 10^3/uL (0.0-0.8); MONO % 10.1 % (0.0-5.0); NEUTROPHILS # 7.7 10^3/uL (1.8-7.7); NEUTROPHILS % 73.5 % (36.0-66.0); PLATELET COUNT, AUTOMATED 409 10^3/uL (150-450); RED BLOOD COUNT 4.25 10^6/uL (4.00-5.40); WHITE BLOOD COUNT 10.4 10^3/uL (4.0-10.0)
[2018-06-30 06:41] LABS: ALBUMIN 1.4 GM/DL (3.2-5.2); BILIRUBIN,TOTAL 0.3 MG/DL (0.2-1.0); CALCIUM LEVEL 9.6 MG/DL (8.8-10.2); CREATININE FOR GFR 1.83 MG/DL (0.55-1.30); GLOMERULAR FILTRATION RATE 28.3 (>32); MAGNESIUM LEVEL 2.3 MG/DL (1.8-2.4); POTASSIUM SERUM 4.5 MEQ/L (3.5-5.1); TOTAL PROTEIN 6.8 GM/DL (6.4-8.2)
[2018-06-30] MEDS: NYSTATIN 100,000 UNITS/GM TOPICAL PWD 15 GM TOP SCH ×2 (08:25→22:19)
[2018-06-30] MEDS: LACTOBACILLUS ACIDOPHILUS CAP (BACID) PO SCH ×3 (08:25→16:49)
[2018-06-30] MEDS: FERROUS SULFATE 325MG TAB PO SCH (08:25)
[2018-06-30] MEDS: ROSUVASTATIN 10 MG TAB (CRESTOR) PO SCH (08:25)
[2018-06-30] MEDS: ASPIRIN 81 MG ENTERIC TAB PO SCH (08:25)
[2018-06-30 14:00] VITALS: BP 126/59
--- NOTE | 2018-06-30 14:28 | IPNPDOC ---
Text Note Date of Service The patient was seen on 06/30/18. NOTE SUBJECTIVE: Continues to have severe pain in both the legs , inner thighs and buttocks, Does not want to move around. Says sleeps in a recliner with a spinal pillow. Has a finger tip sized deep opening just above the central crease if the buttock. Says it has been ongoing for a long while sometimes it closes off then again reopens. This time it reopened about a week ago just before admission. Follow with a wound care in [place]. She complains of burning over the whole of her buttocks and perineum and inner thighs. The whole region is raw and excoriated. OBJECTIVE: VITALS: PLS SEE BELOW GEN: 77 yo F, appears stated age. Well-nourished, well developed. No acute distress. Alert and oriented x 3. Becomes somewhat agitated with questioning at times. HEENT: Normocephalic, atraumatic. Pupils are equal, round, and reactive to light. Extraocular movements are intact. No nystagmus appreciated. Sclera are nonicteric. Conjunctiva without injection. Nose midline. Nasal turbinates without bogginess. No facial asymmetry. Dry appearing mucous membranes. Pharynx pink and moist, no cobblestoning. Neck supple, trachea midline. CHEST: Regular rate and rhythm, +S1, +S2 LUNGS: Clear to auscultation bilaterally. No wheezes, rales, or rhonchi. Breathing appears symmetric and easy. Patient is speaking in full sentences. No accessory muscle use. ABD: Round, soft, non-tender, non-distended. +Bowel sounds throughout. No rebound or guarding. No costovertebral angle tenderness. EXT: Pulses 2+ bilaterally dorsalis pedis and radial. No lower extremity edema appreciated. SKIN: Chronic venous stasis and lymphedema changes are noted on the bilateral lower extremities. Chronic dry skin with skin scaling. There is an approximate 1 cm fluid and blood filled blister on big toe of the right leg. right lower extremity with diffuse erythema involving the dorsum and planter aspect of the foot and progressing up to the knee. Skin is warm to the touch. severe tenderness with palpation or with moving. There is excoriations on both the inner thighs. The patient has erythematous rash under breast bilaterally and in bilateral groin folds. Back: the buttoacks are red and excoriated and raw. there is a finger tip sized opening just above the central crease of the buttock. NEURO: Alert and oriented x 3. Cranial nerves III-XII are intact. No focal deficits appreciated. LABORATORY DATA, IMAGING STUDIES, MICROBIOLOGY: REVIEWED PLS SEE BELOW ASSESSMENT AND PLAN: 78 yo F with history of recurrent lower extremity cellulitis, chronic lymphedema and chronic venous stasis, CHF with EF of 50% with regional wall motion abnormalities and grade 1 diastolic dysfunction, moderate pulmonary hypertension, morbid obesity, hypertension, CAD, CKD 3, hypothyroid, nephrolithiasis, cholelithiasis, hyperlipidemia States she follows as needed with wound care, Dr. Nathen [place]. She has not been seen there recently. The patient states she was feeling well until approximately 2 evenings ago when she had an episode of vomiting. This was followed by right l ower extremity erythema, warmth and tenderness which has progressed up to the proximal thigh area. The patient states she had vomiting through last night. She has felt chilled and generally weak. She has not taken her temperature. She has been drinking fluids however not eating in the past 24-48 hours.The patient states she has had multiple similar episodes in the past where she was diagnosed with cellulitis. Typically her right leg becomes red, swollen and tender up to her thigh. The patient was last admitted for a similar issue 11/13/17.Denies any BUENO, CP, SOB, cough, palpitations, abdominal pain, D or changes in bowel habits. The patient states she has chronic urinary incontinence related to OAB, denies dysuria, frequency, urgency or hematuria.Upon presentation to the hospital the patient was found to have cellulitis, thus the hospitalist team was consulted. Right lower extremity Cellulitis/Sepsis Wound culture with multiple organisms. srepto, proteus, corynebacterium, sapht MRSA screen positive Seen by ID On vanco and levofloxacin fluconazole Sacral decubiti /dermatitis and / sinus tract. continue wound care, foam dressing surgical consult. possible fungal UTi on fluconazole DANIELE/CKD3 most probably due to infection and sepssi. slight improvement. CHF systolic and diastolic Has EF of 50% and diastolic dysfunction Difficult to estimate fluid status due to morbid obesity most probably euvolemic Moderate pulmonary hypertension due to CHF and morbid obesity History of nephrolithiasis Renal ultrasound no stones noted Hypothyroid Continue synthroid Dyslipidemia Continue statin. Morbid obesity. BMI 46.4. Complicates care. Dermatophytosis bilateral breast/groin folds Nystatin powder applied under breasts bilaterally and groin folds. fluconazole. Unsteady gait. Patient uses a walker at home. Request PT eval. Patient refusing to work because of pain Hyperlipidemia continue statin Hypertension. No medications as outpatient CAD/history of stent Continue aspirin 81 mg daily, statin Chronic back pain with h/o back surgery in the past. DVT prophylaxis. Subcutaneous heparin VS,Fishbone, I+O VS, Fishbone, I+O Laboratory Tests 06/30/18 05:31 Red Blood Count 4.25, Mean Corpuscular Volume 76.5 L, Mean Corpuscular Hemoglobin 24.5 L, Mean Corpuscular Hemoglobin Concent 32.0, Red Cell Distribution Width 19.2 H, Neutrophils (%) (Auto) 73.5 H, Lymphocytes (%) (Auto) 11.0 L, Monocytes (%) (Auto) 10.1 H, Eosinophils (%) (Auto) 3.7 H, Basophils (%) (Auto) 0.5, Neutrophils # (Auto) 7.7, Lymphocytes # (Auto) 1.2 L, Monocytes # (Auto) 1.1 H, Eosinophils # (Auto) 0.4, Basophils # (Auto) 0.1, Calcium Level 9.6, Aspartate Amino Transf (AST/SGOT) 14, Alanine Aminotransferase (ALT/SGPT) 7 L, Alkaline Phosphatase 201 H, Total Bilirubin 0.3, Total Protein 6.8, Albumin 1.4 L Vital Signs Date Time Temp Pulse Resp B/P (MAP) Pulse Ox O2 Delivery O2 Flow Rate FiO2 06/30/18 06:00 97.5 90 16 92/55 (67) 95 Room Air 06/25/18 23:30 3.0 I&O- Last 24 Hours up to 6 AM 06/30/18 06:00 Intake Total 160 ml Output Total 0 ml Balance 160 ml MINDY ALLEN MD Jun 30, 2018 14:28
[2018-06-30] MEDS ORDERED: VANCOMYCIN HCL 750 MG, VIAL MATE ADAPTER 1 EACH in D5W 250 ML IV SCH (16:00)
[2018-06-30 16:35] VITALS: BP 112/57
[2018-06-30 20:00] VITALS: BP 118/55
[2018-06-30] MEDS: LEVOTHYROXINE 125MCG TABLET (0.125MG) PO SCH (22:18)
[2018-06-30] MEDS: hydrOXYzine 10 MG TAB PO PRN (22:18)
--- NOTE | 2018-07-01 03:19 | CR ---
DATE OF CONSULTATION: 06/30/2018 REASON FOR CONSULTATION: Sacral decubitus. HISTORY OF PRESENT ILLNESS: The patient is a pleasant 78-year-old woman who was admitted on or about June 24, 2018 for treatment of cellulitis of her right lower extremity. The patient's primary provider is apparently or has apparently been Dr. Sheffield. She has been seen at a wound care center in [place], [place] but has not been seen in some time. She has a history of chronic edema of the lower extremities and has had prior episodes of cellulitis. She presented with a history of some vomiting and redness and pain in her right lower extremity. She presented to the emergency department and was admitted by the hospitalist for management. She reports that she has a chronic recurring wound at the top of the gluteal cleft. She reports that when she is sleeping in her own recliner at home with a back pillow she heals this small area but when she is in the hospital the wound recurs. She was apparently noted to have an open area at the top of the gluteal cleft and I am now asked to evaluate this. MEDICATIONS: Medications are as listed in her medical record and include: - levofloxacin - vancomycin ALLERGIES: She has allergies listed to CAMPHOR, CARBOXYMETHYLCELLULOSE CLINDAMYCIN, LATEX, MENTHOL, METHYL SALICYLATE, PHENOBARBITAL, PINEAPPLE, SULFA DRUGS, TAPE and TROLAMINE SALICYLATE. PAST SURGICAL HISTORY: Surgical history includes coronary stent in December of 2006 or 2007. She has had her appendix out. She has had a hysterectomy. She has had stents placed for renal stones. She has had a cystoscopy and biopsy of a bladder tumor. She has had surgery on her left knee and has had a laminectomy on her back. PAST MEDICAL HISTORY: As listed includes prior myocardial infarction and coronary stent placement. She has had high cholesterol and hypertension. She has a history of chronic lung disease. She has chronic kidney disease and osteoarthritis. She has chronic edema in her lower extremities. PHYSICAL EXAMINATION: Physical exam is limited to her lower back and buttocks. Examination shows a roughly inverted teardrop-shaped open wound right at the top of the gluteal cleft. This appears to overlie her coccyx. There is an area about 3 to 3-1/2 cm in length which is open along the midline. This is about 1.5 cm wide at the superior aspect and tapers inferiorly as the wound becomes more shallow inferiorly. This appears to be lined by viable tissue. There is no significant drainage identified and I do not see any necrotic tissue. She has overall poor skin integrity with a lot of redness and excoriations of her buttocks and along the gluteal cleft. There are several areas of superficial bruising or excoriation across the folds in the lower back. LABORATORIES: She had laboratory studies today that showed a white count of 10, hemoglobin of 10, hematocrit of 32 and platelet count of 409,000. Differential count showed 74% neutrophils, 11% lymphocytes and 10% monocytes. Her chemistry profile showed sodium 139, potassium 4.5, chloride 109, CO2 of 21, BUN of 29, creatinine 1.8 and a glucose of 96. Total protein is 6.8 with an albumin of 1.4. Her most recent C-reactive protein (CRP) was June 29, 2018 and was 22. IMPRESSION: The patient has a small open area. This is likely primarily related to pressure on this area. She reports that this has come and gone in the past. She reports that when she is home and has her own supportive pillow and her recliner that she can maintain offloading of this area and it will heal. Here in the hospital she reports that she must stay on her back. She indicates that she cannot stay for any time on her side ever since her back surgery because she gets short of breath. RECOMMENDATIONS: Unfortunately this problem is going to be very difficult to address. She reports that she cannot remain on her side which would allow for a better chance of healing. I note that her albumin is 1.46 consistent with poor nutrition and this will also impede healing. Overall her skin integrity appears quite poor. Her obesity certainly makes care more difficult and provides more pressure on this area. Her general lack of mobility associated with her other medical problems also limits the chance to change position frequently to prevent pressure on this area. For now I would recommend that this be kept clean as much as possible with an absorptive bandage. To the extent possible we should try to keep her off of this area so that there is less pressure and more likelihood of healing. I do not have high hopes that this is going to heal any time in the near future. I do not believe that any surgical intervention is warranted at this time. CARMEN
[2018-07-01 06:00] VITALS: BP 122/58
[2018-07-01 06:23] LABS: BASO # 0.1 10^3/uL (0.0-0.2); BASO % 0.5 % (0.0-1.0); EOS # 0.5 10^3/uL (0.0-0.50); EOS % 4.2 % (0.0-3.0); HEMATOCRIT 34.4 % (36.0-47.0); HEMOGLOBIN 10.9 g/dl (12.0-15.5); LYMPH # 1.3 10^3/uL (1.5-4.5); LYMPH % 11.3 % (24.0-44.0); MEAN CORPUSCULAR HEMOGLOBIN 24.4 pg (27.0-33.0); MEAN CORPUSCULAR HGB CONC 31.7 g/dl (32.0-36.5); MEAN CORPUSCULAR VOLUME 77.1 fl (80.0-96.0); MONO # 1.2 10^3/uL (0.0-0.8); MONO % 9.7 % (0.0-5.0); NEUTROPHILS # 8.7 10^3/uL (1.8-7.7); PLATELET COUNT, AUTOMATED 480 10^3/uL (150-450); RED BLOOD COUNT 4.46 10^6/uL (4.00-5.40); WHITE BLOOD COUNT 11.9 10^3/uL (4.0-10.0)
[2018-07-01] MEDS: HEPARIN SOD (PORCINE) 5000 UNITS/ML VIAL SC SCH ×3 (06:32→21:49)
[2018-07-01] MEDS: LevoFLOXacin 250 MG TABLET PO SCH (06:32)
[2018-07-01 06:47] LABS: ALBUMIN 1.5 GM/DL (3.2-5.2); BILIRUBIN,TOTAL 0.4 MG/DL (0.2-1.0); CALCIUM LEVEL 9.6 MG/DL (8.8-10.2); CREATININE FOR GFR 1.59 MG/DL (0.55-1.30); GLOMERULAR FILTRATION RATE 33.3 (>32); MAGNESIUM LEVEL 2.2 MG/DL (1.8-2.4); POTASSIUM SERUM 4.3 MEQ/L (3.5-5.1); TOTAL PROTEIN 7.1 GM/DL (6.4-8.2)
[2018-07-01] MEDS: ASPIRIN 81 MG ENTERIC TAB PO SCH (09:07)
[2018-07-01] MEDS: ROSUVASTATIN 10 MG TAB (CRESTOR) PO SCH (09:07)
[2018-07-01] MEDS: FERROUS SULFATE 325MG TAB PO SCH (09:07)
[2018-07-01] MEDS: NYSTATIN 100,000 UNITS/GM TOPICAL PWD 15 GM TOP SCH ×2 (09:08→21:00)
[2018-07-01] MEDS: LACTOBACILLUS ACIDOPHILUS CAP (BACID) PO SCH ×3 (09:08→16:45)
[2018-07-01] MEDS: FLUCONAZOLE 100 MG TAB PO SCH (10:35)
[2018-07-01] MEDS: PERCOCET 5MG/325MG TAB PO PRN (10:36)
--- NOTE | 2018-07-01 11:41 | IPNPDOC ---
Text Note Date of Service The patient was seen on 07/01/18. NOTE SUBJECTIVE: This am complains of nausea. Continues to have severe pain in both the legs , inner thighs and buttocks, she cannot lie on her side as that makes her breathing difficult. the right leg is less angry but the blood filled blister on the first toe remains unchanged which i expect will be opening up at some point. No fever or chills. Does not want PT involved in her care and have always refused home services in the past. OBJECTIVE: VITALS: PLS SEE BELOW GEN: 77 yo F, appears stated age. Well-nourished, well developed. No acute distress. Alert and oriented x 3. Becomes somewhat agitated with questioning at times. HEENT: Normocephalic, atraumatic. Pupils are equal, round, and reactive to light. Extraocular movements are intact. No nystagmus appreciated. Sclera are nonicteric. Conjunctiva without injection. Nose midline. Nasal turbinates without bogginess. No facial asymmetry. Dry appearing mucous membranes. Pharynx pink and moist, no cobblestoning. Neck supple, trachea midline. CHEST: Regular rate and rhythm, +S1, +S2 LUNGS: Clear to auscultation bilaterally. No wheezes, rales, or rhonchi. Breathing appears symmetric and easy. Patient is speaking in full sentences. No accessory muscle use. ABD: Round, soft, non-tender, non-distended. +Bowel sounds throughout. No rebound or guarding. No costovertebral angle tenderness. EXT: Pulses 2+ bilaterally dorsalis pedis and radial. No lower extremity edema appreciated. SKIN: Chronic venous stasis and lymphedema changes are noted on the bilateral lower extremities. Chronic dry skin with skin scaling. There is an approximate 1 cm fluid and blood filled blister on big toe of the right leg. right lower extremity with diffuse erythema involving the dorsum and planter aspect of the f oot and progressing up to the knee. Skin is warm to the touch. severe tenderness with palpation or with moving. There is excoriations on both the inner thighs. The patient has erythematous rash under breast bilaterally and in bilateral groin folds. Back: the buttocks are red and excoriated and raw. there is a finger tip sized opening just above the gluteal cleft. NEURO: Alert and oriented x 3. Cranial nerves III-XII are intact. No focal deficits appreciated. LABORATORY DATA, IMAGING STUDIES, MICROBIOLOGY: REVIEWED PLS SEE BELOW ASSESSMENT AND PLAN: 78 yo F with history of recurrent lower extremity cellulitis, chronic lymphedema and chronic venous stasis, CHF with EF of 50% with regional wall motion abnormalities and grade 1 diastolic dysfunction, moderate pulmonary hypertension, morbid obesity, hypertension, CAD, CKD 3, hypothyroid, nephrolithiasis, cholelithiasis, hyperlipidemia States she follows as needed with wound care, Dr. Nathen Wallis [place]. She has not been seen there recently. The patient states she was feeling well until approximately 2 evenings ago when she had an episode of vomiting. This was followed by right lower extremity erythema, warmth and tenderness which has progressed up to the proximal thigh area. The patient states she had vomiting through last night. She has felt chilled and generally weak. She has not taken her temperature. She has been drinking fluids however not eating in the past 24-48 hours.The patient states she has had multiple similar episodes in the past where she was diagnosed with cellulitis. Typically her right leg becomes red, swollen and tender up to her thigh. The patient was last admitted for a similar issue 11/13/17.Denies any BUENO, CP, SOB, cough, palpitations, abdominal pain, D or changes in bowel habits. The patient states she has chronic urinary incontinence related to OAB, denies dysuria, frequency, urgency or hematuria.Upon presentation to the hospital the patient was found to have cellulitis, thus the hospitalist team was consulted. Right lower extremity Cellulitis/Sepsis Wound culture with multiple organisms. srepto, proteus, corynebacterium, staph MRSA screen positive Seen by ID On vanco and levofloxacin,fluconazole Sacral decubiti /dermatitis continue wound care, foam dressing, keep the area dry , avaoid pressure in wade area as much as possible As per Dr Bowling nothing more can be offered and with her unable to lie on her side the chance of this healing is slim. Possible fungal UTi on fluconazole DANIELE/CKD3 most probably due to infection and sepsis. slight improvement. CHF systolic and diastolic Has EF of 50% and diastolic dysfunction Difficult to estimate fluid status due to morbid obesity most probably euvolemic Moderate pulmonary hypertension due to CHF and morbid obesity History of nephrolithiasis Renal ultrasound no stones noted Hypothyroid Continue synthroid Dyslipidemia Continue statin. Morbid obesity. BMI 46.4. Complicates care. Malnutrition as she has very low albumin . This makes healing more difficult. Dermatophytosis bilateral breast/groin folds Nystatin powder applied under breasts bilaterally and groin folds. fluconazole. Unsteady gait. Patient uses a walker at home. Request PT eval. Patient refusing to work because of pain Hyperlipidemia continue statin Hypertension. No medications as outpatient CAD/history of stent Continue aspirin 81 mg daily, statin Chronic back pain with h/o back surgery in the past. DVT prophylaxis. Subcutaneous heparin VS,Fishbone, I+O VS, Fishbone, I+O Laboratory Tests 07/01/18 06:06 Red Blood Count 4.46, Mean Corpuscular Volume 77.1 L, Mean Corpuscular Hemoglo bin 24.4 L, Mean Corpuscular Hemoglobin Concent 31.7 L, Red Cell Distribution Width 19.4 H, Neutrophils (%) (Auto) 73.0 H, Lymphocytes (%) (Auto) 11.3 L, Monocytes (%) (Auto) 9.7 H, Eosinophils (%) (Auto) 4.2 H, Basophils (%) (Auto) 0.5, Neutrophils # (Auto) 8.7 H, Lymphocytes # (Auto) 1.3 L, Monocytes # (Auto) 1.2 H, Eosinophils # (Auto) 0.5, Basophils # (Auto) 0.1, Calcium Level 9.6, Aspartate Amino Transf (AST/SGOT) 8, Alanine Aminotransferase (ALT/SGPT) 7 L, Alkaline Phosphatase 212 H, Total Bilirubin 0.4, Total Protein 7.1, Albumin 1.5 L Vital Signs Date Time Temp Pulse Resp B/P (MAP) Pulse Ox O2 Delivery O2 Flow Rate FiO2 07/01/18 10:36 18 07/01/18 06:00 97.9 78 122/58 (79) 95 Room Air 06/25/18 23:30 3.0 I&O- Last 24 Hours up to 6 AM 07/01/18 06:00 Intake Total 755 ml Output Total 600 ml Balance 155 ml MINDY ALLEN MD Jul 01, 2018 11:41
[2018-07-01 14:00] VITALS: BP 137/64
[2018-07-01 15:50] LABS: VANCOMYCIN LEVEL TROUGH 22.3 UG/ML (10.0-20.0)
[2018-07-01 19:51] LABS: C REACTIVE PROTEIN QUANTITATIV 12.2 MG/DL (0.00-0.30)
[2018-07-01] MEDS: hydrOXYzine 10 MG TAB PO PRN (21:48)
[2018-07-01] MEDS: LEVOTHYROXINE 125MCG TABLET (0.125MG) PO SCH (21:48)
[2018-07-01 22:00] VITALS: BP 95/52
--- NOTE | 2018-07-02 | PHACANCOPD ---
PHARMACY VANCOMYCIN DOSING Pt Demographics Demographics Patient Age:78 , Weight:123.900 , Gender: female Events Past 24 Hours Events Past 24 Hours: NO: Dialysis, Diuretic Therapy, Change in CrCl, Fever, Elevation in WBC, Pending Diagnostics, Pending Procedures, Other Vancomycin Vancomycin indication: RECURRENT LE CELLULITIS Vancomycin Target Ranges: 15-20 mcg/ml Vancomycin Load Y/N: Yes Load Dose Date Time Vancomycin Load Dose: 1.5GM Date: 06/24/18 Time: 5203-1124 Vancomycin Dose Date: 07/01/18. Change current Vancomycin Dose to: [VANCO 1000mg IV Q48H to start 07/02 @ 08:00] Intermittent Dosing?: No Labs Labs Laboratory Tests Test 06/26/18 09:18 06/28/18 09:10 06/29/18 11:06 07/01/18 15:23 Vancomycin Level Trough 17.5 UG/ML (10.0-20.0) 22.0 UG/ML (10.0-20.0) 21.1 UG/ML (10.0-20.0) 22.3 UG/ML (10.0-20.0) Laboratory Tests 07/01/18 06:06 Red Blood Count 4.46, Mean Corpuscular Volume 77.1, Mean Corpuscular Hemoglobin 24.4, Mean Corpuscular Hemoglobin Concent 31.7, Red Cell Distribution Width 19.4, Neutrophils (%) (Auto) 73.0, Lymphocytes (%) (Auto) 11.3, Monocytes (%) (Auto) 9.7, Eosinophils (%) (Auto) 4.2, Basophils (%) (Auto) 0.5, Neutrophils # (Auto) 8.7, Lymphocytes # (Auto) 1.3, Monocytes # (Auto) 1.2, Eosinophils # (Auto) 0.5, Basophils # (Auto) 0.1, Calcium Level 9.6, Aspartate Amino Transf (AST/SGOT) 8, Alanine Aminotransferase (ALT/SGPT) 7, Alkaline Phosphatase 212, Total Bilirubin 0.4, Total Protein 7.1, Albumin 1.5 Micro Microbiology 06/24/18 Blood Culture - Final, Complete NO GROWTH AFTER 5 DAYS 06/24/18 Blood Culture - Final, Complete NO GROWTH AFTER 5 DAYS 06/24/18 MRSA Screen - Final, Complete Staph.aureus Methicillin Resis 06/24/18 Urine Culture - Final, Complete Yeast Like Organism 06/24/18 Gram Stain - Final, Complete 06/24/18 Wound Culture - Final, Complete Staph.aureus Methicillin Resis Streptococcus Group C Corynebacterium Species Proteus Mirabilis Creatinine Clearance Date:07/01/18. Creatinine Clearance: [>20 ml/min]. Pending Labs Item Value Date Time Vancomycin Level Trough 22.0 UG/ML H 06/28/18 0910 Creatinine 1.88 MG/DL H 06/28/18 0526 White Blood Count 8.1 10^3/uL 06/28/18 0532 White Blood Count 11.5 10^3/uL H 06/27/18 0530 White Blood Count 12.6 10^3/uL H 06/26/18 0506 White Blood Count 16.3 10^3/uL H 06/24/18 1344 Creatinine 1.91 MG/DL H 06/27/18 0530 Creatinine 2.28 MG/DL H 06/26/18 0506 Vancomycin Level Trough 17.5 UG/ML 06/26/18 0918 Assessment and Plan Maintaining Current Dose?: No Reason for dose change: Trough too high Pharmacist Note Pharmacist Note : PharmD NOTE: CHANGE VANCO TO 1GM IV Q48H start 07/02/18 08:00 [facility] Jul 02, 2018 00:00
[2018-07-02] MEDS: LevoFLOXacin 250 MG TABLET PO SCH (05:42)
[2018-07-02] MEDS: HEPARIN SOD (PORCINE) 5000 UNITS/ML VIAL SC SCH ×3 (05:42→20:24)
[2018-07-02] MEDS: PERCOCET 5MG/325MG TAB PO PRN ×2 (05:50→20:24)
[2018-07-02 06:00] VITALS: BP 111/51
[2018-07-02] MEDS: ROSUVASTATIN 10 MG TAB (CRESTOR) PO SCH (08:44)
[2018-07-02] MEDS: FLUCONAZOLE 100 MG TAB PO SCH (08:44)
[2018-07-02] MEDS: LACTOBACILLUS ACIDOPHILUS CAP (BACID) PO SCH ×3 (08:44→17:16)
[2018-07-02] MEDS: ASPIRIN 81 MG ENTERIC TAB PO SCH (08:44)
[2018-07-02] MEDS: FERROUS SULFATE 325MG TAB PO SCH (08:44)
[2018-07-02] MEDS: NYSTATIN 100,000 UNITS/GM TOPICAL PWD 15 GM TOP SCH ×2 (08:44→20:24)
[2018-07-02] MEDS: VANCOMYCIN HCL 1,000 MG, VIAL MATE ADAPTER 1 EACH in D5W 250 ML IV SCH (08:44)
--- NOTE | 2018-07-02 08:59 | IPN ---
DATE OF SERVICE: 07/01/2018 Patricia seems to be doing a little better today. She is in better spirits. She still complains of significant pain in her legs right more than left. She states that Cob[place] dressings used to be done when she used to go to the [facility] in [place] but as soon as she left the office, they would cause a lot of ankle pain and they would loosened and she would cut them off. She has no fever or chills. She had some nausea but no vomiting or diarrhea. LABORATORY DATA: White count 11.9, hemoglobin 10.9, hematocrit 34.4, platelets 480. Sodium 141, potassium 4.3, chloride 109, bicarb 24, BUN 26, creatinine 1.59, glucose 88, calcium 9.6, magnesium 2.2, AST 8, ALT 7, alk phos 212, total protein 7.1, albumin 1.5, vancomycin trough was 22.3 on 07/01 on IV vancomycin 750 mg every 24 hours. The patient is also on oral fluconazole 200 mg daily and Levaquin 250 mg daily, currently day #4. On physical exam, temperature is 98.6, pulse 73, respirations 20, blood pressure 137/64, O2 sat 93% on room air. Heart: Normal S1, S2. No murmurs. Lungs are clear. No wheezes, rales or rhonchi anteriorly. Abdomen: Morbidly obese, soft, nontender. Extremities: Dry scaly erythema on the right leg. Left leg has some scaliness with brown hyperpigmented changes. Right foot has a large blister on the toe which is hemorrhagic. Erythema of the whole plantar aspect of the foot with tenderness, redness and warmth. IMPRESSION: 1. Right lower extremity cellulitis with culture positive for Methicillin-resistant staphylococcus aureus (MRSA), Group C strep and Proteus on IV vancomycin and oral Levaquin. 2. Candiduria with jud vaginitis on oral fluconazole 200 mg daily. 3. 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 PLAN: Continue with IV vancomycin 1 gram every 48 hours, Levaquin 250 mg daily day #4 out of 10 and fluconazole for a total of 7 days. Will obtain followup CRP, CBC in the morning.
[2018-07-02] MEDS ORDERED: MIRALAX *UNIT DOSE* 17GM PACKET PO PRN (11:45)
[2018-07-02] MEDS: SENOKOT S TAB PO SCH ×2 (12:26→20:24)
[2018-07-02] MEDS: BISACODYL 5 MG TAB PO SCH (12:28)
[2018-07-02 14:40] VITALS: BP 119/58
[2018-07-02] MEDS: LEVOTHYROXINE 125MCG TABLET (0.125MG) PO SCH (20:23)
[2018-07-02] MEDS: BISACODYL 10 MG SUPP PR SCH (21:16)
[2018-07-02] MEDS: LACTULOSE 20 GM/30 ML SYRUP UD PO SCH (21:17)
--- NOTE | 2018-07-02 21:24 | IPNPDOC ---
Text Note Date of Service The patient was seen on 07/02/18. NOTE SUBJECTIVE: No new complaints. Has not had any bowel movements for 6 days. she says her legs feel a little better. OBJECTIVE: VITALS: PLS SEE BELOW GEN: 77 yo F, appears stated age. Well-nourished, well developed. No acute distress. Alert and oriented x 3. Becomes somewhat agitated with questioning at times. HEENT: Normocephalic, atraumatic. Pupils are equal, round, and reactive to light. Extraocular movements are intact. No nystagmus appreciated. Sclera are nonicteric. Conjunctiva without injection. Nose midline. Nasal turbinates without bogginess. No facial asymmetry. Dry appearing mucous membranes. Pharynx pink and moist, no cobblestoning. Neck supple, trachea midline. CHEST: Regular rate and rhythm, +S1, +S2 LUNGS: Clear to auscultation bilaterally. No wheezes, rales, or rhonchi. Breathing appears symmetric and easy. Patient is speaking in full sentences. No accessory muscle use. ABD: Round, soft, non-tender, non-distended. +Bowel sounds throughout. No rebound or guarding. No costovertebral angle tenderness. EXT: Pulses 2+ bilaterally dorsalis pedis and radial. No lower extremity edema appreciated. SKIN: Chronic venous stasis and lymphedema changes are noted on the bilateral lower extremities. Chronic dry skin with skin scaling. There is an approximate 1 cm fluid and blood filled blister on big toe of the right leg. right lower extremity with diffuse erythema involving the dorsum and planter aspect of the foot and progressing up to the knee. Skin is warm to the touch. severe tenderness with palpation or with moving. There is excoriations on both the inner thighs. The patient has erythematous rash under breast bilaterally and in bilateral groin folds. Back: the buttocks are red and excoriated and raw. there is a finger tip sized opening just above the gluteal cleft. NEURO: Alert and oriented x 3. Cranial nerves III-XII are intact. No focal deficits appreciated. LABORATORY DATA, IMAGING STUDIES, MICROBIOLOGY: REVIEWED PLS SEE BELOW ASSESSMENT AND PLAN: 78 yo F with history of recurrent lower extremity cellulitis, chronic lymphedema and chronic venous stasis, CHF with EF of 50% with regional wall motion abnormalities and grade 1 diastolic dysfunction, moderate pulmonary hypertension, morbid obesity, hypertension, CAD, CKD 3, hypothyroid, nephrolithiasis, cholelithiasis, hyperlipidemia States she follows as needed with wound care, Dr. Nathen Wallis [place]. She has not been seen there recently. The patient states she was feeling well until approximately 2 evenings ago when she had an episode of vomiting. This was followed by right lower extremity erythema, warmth and tenderness which has progressed up to the proximal thigh area. The patient states she had vomiting through last night. She has felt chilled and generally weak. She has not taken her temperature. She has been drinking fluids however not eating in the past 24-48 hours.The patient states she has had multiple similar episodes in the past where she was diagnosed with cellulitis. Typically her right leg becomes red, swollen and tender up to her thigh. The patient was last admitted for a similar issue 11/13/17.Denies any BUENO, CP, SOB, cough, palpitations, abdominal pain, D or changes in bowel habits. The patient states she has chronic urinary incontinence related to OAB, denies dysuria, frequency, urgency or hematuria.Upon presentation to the hospital the patient was found to have cellulitis, thus the hospitalist team was consulted. Right lower extremity Cellulitis/Sepsis Wound culture with multiple organisms. srepto, proteus, corynebacterium, staph MRSA screen positive Seen by ID On vanco and levofloxacin,fluconazole Sacral decubiti with irritant dermatitis in the surrounding buttocks, both groins and inner thighs. stage 2. present on admission. continue wound care, foam dressing, keep the area dry , avoid pressure in wade area as much as possible As per Dr Bowling nothing more can be offered and with her unable to lie on her side the chance of this healing is slim. Severe constipation patient usually has bowel movements every third day at home. Has not had any here since admission. infact she is afraid to have any as this irritates her buttocks very much will give senkot -s, dulcolax suppository, lactulose and miralax prn. Possible fungal UTi on fluconazole DANIELE/CKD3 most probably due to infection and sepsis. slight improvement. CHF systolic and diastolic Has EF of 50% and diastolic dysfunction Difficult to estimate fluid status due to morbid obesity most probably euvolemic Moderate pulmonary hypertension due to CHF and morbid obesity History of nephrolithiasis Renal ultrasound no stones noted Hypothyroid Continue synthroid Dyslipidemia Continue statin. Morbid obesity. BMI 46.4. Complicates care. Malnutrition as she has very low albumin . This makes healing more difficult. Dermatophytosis bilateral breast/groin folds Nystatin powder applied under breasts bilaterally and groin folds. fluconazole. Unsteady gait. Patient uses a walker at home. Request PT eval. Patient refusing to work because of pain Hyperlipidemia continue statin Hypertension. No medications as outpatient CAD/history of stent Continue aspirin 81 mg daily, statin Chronic back pain with h/o back surgery in the past. DVT prophylaxis. Subcutaneous heparin VS,Fishbone, I+O VS, Fishbone, I+O Vital Signs Date Time Temp Pulse Resp B/P (MAP) Pulse Ox O2 Delivery O2 Flow Rate FiO2 07/02/18 20:24 20 07/02/18 14:40 96.7 79 119/58 (78) 93 Room Air I&O- Last 24 Hours up to 6 AM 07/02/18 06:00 Intake Total 1140 ml Output Total 650 ml Balance 490 ml MINDY ALLEN MD Jul 02, 2018 21:24
[2018-07-02 22:00] VITALS: BP 121/57
[2018-07-03] MEDS: HEPARIN SOD (PORCINE) 5000 UNITS/ML VIAL SC SCH ×3 (05:08→21:13)
[2018-07-03] MEDS: LevoFLOXacin 250 MG TABLET PO SCH (05:08)
[2018-07-03 06:00] VITALS: BP 115/58
[2018-07-03 06:25] LABS: BASO # 0.1 10^3/uL (0.0-0.2); BASO % 0.8 % (0.0-1.0); EOS # 0.9 10^3/uL (0.0-0.50); EOS % 9.9 % (0.0-3.0); HEMATOCRIT 32.7 % (36.0-47.0); HEMOGLOBIN 10.3 g/dl (12.0-15.5); LYMPH # 1.8 10^3/uL (1.5-4.5); LYMPH % 20.1 % (24.0-44.0); MEAN CORPUSCULAR HEMOGLOBIN 25.1 pg (27.0-33.0); MEAN CORPUSCULAR HGB CONC 31.5 g/dl (32.0-36.5); MEAN CORPUSCULAR VOLUME 79.8 fl (80.0-96.0); MONO % 10.8 % (0.0-5.0); NEUTROPHILS # 5.1 10^3/uL (1.8-7.7); PLATELET COUNT, AUTOMATED 473 10^3/uL (150-450); WHITE BLOOD COUNT 8.9 10^3/uL (4.0-10.0)
[2018-07-03 06:49] LABS: CREATININE FOR GFR 1.51 MG/DL (0.55-1.30); GLOMERULAR FILTRATION RATE 35.3 (>32); POTASSIUM SERUM 4.4 MEQ/L (3.5-5.1)
[2018-07-03] MEDS: LACTOBACILLUS ACIDOPHILUS CAP (BACID) PO SCH ×3 (08:00→18:09)
[2018-07-03] MEDS: BISACODYL 10 MG SUPP PR SCH ×2 (09:00→20:07)
[2018-07-03] MEDS: SENOKOT S TAB PO SCH ×2 (09:00→20:13)
[2018-07-03] MEDS: BISACODYL 5 MG TAB PO SCH (09:00)
[2018-07-03] MEDS: FLUCONAZOLE 100 MG TAB PO SCH (10:23)
[2018-07-03] MEDS: ASPIRIN 81 MG ENTERIC TAB PO SCH (10:23)
[2018-07-03] MEDS: FERROUS SULFATE 325MG TAB PO SCH (10:24)
[2018-07-03] MEDS: ROSUVASTATIN 10 MG TAB (CRESTOR) PO SCH (10:24)
[2018-07-03] MEDS: LACTULOSE 20 GM/30 ML SYRUP UD PO SCH ×5 (10:24→20:08)
[2018-07-03] MEDS: PERCOCET 5MG/325MG TAB PO PRN ×2 (10:25→17:16)
[2018-07-03] MEDS: NYSTATIN 100,000 UNITS/GM TOPICAL PWD 15 GM TOP SCH ×2 (10:26→21:13)
--- NOTE | 2018-07-03 11:01 | IPN ---
DATE: 07/02/2018 Mrs. Toledo is doing well. She has no new complaints today other than her leg pains. Temperature is 96.7, pulse 79, respirations 18, blood pressure 119/58, O2 sat 93% on room air. Right lower extremity erythema has diminished. She still has a hemorrhagic blister on the right big toe with some bleeding. Groin area has some erythema with infra-abdominal crack in the skin. MEDICATIONS - vancomycin 1 gram IV every 48 hours - fluconazole 200 mg by mouth daily - Levaquin 250 mg by mouth daily LABORATORY DATA White count is 11.9, hemoglobin 10.9, hematocrit 34.4, platelets 480. Sodium 141, potassium 4.3, chloride 109, bicarb 24, BUN 26, creatinine 1.6, glucose 88, calcium 9.6, magnesium 2.2. IMPRESSION 1. Polymicrobial complicated skin and soft tissue infection on by mouth Levaquin and IV vancomycin. If patient is ready for usp placement she could be switched to by mouth Zyvox for another 5 days. 2. Mucocutaneous candidiasis on fluconazole. 3. Acute kidney injury, improving. Creatinine down from 2.9 to 1.6. PLAN Continue IV vancomycin, by mouth Levaquin and by mouth fluconazole for a total of 2 weeks. If need be could be switched to by mouth Zyvox in anticipation for discharge.
--- NOTE | 2018-07-03 11:46 | IPNPDOC ---
Text Note Date of Service The patient was seen on 07/03/18. NOTE SUBJECTIVE: No new complaints. Has not had any bowel movements for 6 days re fusing most of her bowel meds. I feel she if afraid to have a bowel movement as her buttocks are very raw and painful. She says her legs feel a little better. I did explain that if she does not have any bowel movements for longer she will become obstructed with abdominal pain , vomiting. OBJECTIVE: VITALS: PLS SEE BELOW GEN: 77 yo F, appears stated age. Well-nourished, well developed. No acute distress. Alert and oriented x 3. Becomes somewhat agitated with questioning at times. HEENT: Normocephalic, atraumatic. Pupils are equal, round, and reactive to light. Extraocular movements are intact. No nystagmus appreciated. Sclera are nonicteric. Conjunctiva without injection. Nose midline. Nasal turbinates without bogginess. No facial asymmetry. Dry appearing mucous membranes. Pharynx pink and moist, no cobblestoning. Neck supple, trachea midline. CHEST: Regular rate and rhythm, +S1, +S2 LUNGS: Clear to auscultation bilaterally. No wheezes, rales, or rhonchi. Breathing appears symmetric and easy. Patient is speaking in full sentences. No accessory muscle use. ABD: Obese nontender , +Bowel sounds throughout. No rebound or guarding. No costovertebral angle tenderness. EXT: Pulses 2+ bilaterally dorsalis pedis and radial. No lower extremity edema appreciated. SKIN: Chronic venous stasis and lymphedema changes are noted on the bilateral lower extremities. Chronic dry skin with skin scaling. There is an approximate 1 cm fluid and blood filled blister on big toe of the right leg. right lower extremity with diffuse erythema involving the dorsum and planter aspect of the foot and progressing up to the knee. Skin is warm to the touch. severe tenderness with palpation or with moving. There is excoriations on both the inner thighs. The patient has erythematous rash under breast bilaterally and in bilateral groin folds. Back: the buttocks are red and excoriated and raw. there is a finger tip sized opening just above the gluteal cleft. NEURO: Alert and oriented x 3. Cranial nerves III-XII are intact. No focal deficits appreciated. LABORATORY DATA, IMAGING STUDIES, MICROBIOLOGY: REVIEWED PLS SEE BELOW ASSESSMENT AND PLAN: 78 yo F with history of recurrent lower extremity cellulitis, chronic lymphedema and chronic venous stasis, CHF with EF of 50% wi th regional wall motion abnormalities and grade 1 diastolic dysfunction, moderate pulmonary hypertension, morbid obesity, hypertension, CAD, CKD 3, hypothyroid, nephrolithiasis, cholelithiasis, hyperlipidemia States she follows as needed with wound care, Dr. Nathen [place]is [place]. She has not been seen there recently. The patient states she was feeling well until approximately 2 evenings ago when she had an episode of vomiting. This was followed by right lower extremity erythema, warmth and tenderness which has progressed up to the proximal thigh area. The patient states she had vomiting through last night. She has felt chilled and generally weak. She has not taken her temperature. She has been drinking fluids however not eating in the past 24-48 hours.The patient states she has had multiple similar episodes in the past where she was diagnosed with cellulitis. Typically her right leg becomes red, swollen and tender up to her thigh. The patient was last admitted for a similar issue 11/13/17.Denies any BUENO, CP, SOB, cough, palpitations, abdominal pain, D or changes in bowel habits. The patient states she has chronic urinary incontinence related to OAB, denies dysuria, frequency, urgency or hematuria.Upon presentation to the hospital the patient was found to have cellulitis, thus the hospitalist team was consulted. Right lower extremity Cellulitis/Sepsis Wound culture with multiple organisms. srepto, proteus, corynebacterium, staph MRSA screen positive Seen by ID On vanco and levofloxacin,fluconazole Sacral decubiti with irritant dermatitis in the surrounding buttocks, both groins and inner thighs. stage 2. present on admission. continue wound care, foam dressing, keep the area dry , avoid pressure in wade area as much as possible As per Dr Bowling nothing more can be offered and with her unable to lie on her side the chance of this healing is slim. Severe constipation patient usually has bowel movements every third day at home. Has not had any here since admission. infact she is afraid to have any as this irritates her buttocks very much will give senkot -s, dulcolax suppository, lactulose and miralax prn. Possible fungal UTi on fluconazole DANIELE/CKD3 most probably due to infection and sepsis. slight improvement. CHF systolic and diastolic Has EF of 50% and diastolic dysfunction Difficult to estimate fluid status due to morbid obesity most probably euvolemic Moderate pulmonary hypertension due to CHF and morbid obesity History of nephrolithiasis Renal ultrasound no stones noted Hypothyroid Continue synthroid Dyslipidemia Continue statin. Morbid obesity. BMI 46.4. Complicates care. Malnutrition as she has very low albumin . This makes healing more difficult. Dermatophytosis bilateral breast/groin folds Nystatin powder applied under breasts bilaterally and groin folds. fluconazole. Unsteady gait. Patient uses a walker at home. Request PT eval. Patient refusing to work because of pain Hyperlipidemia continue statin Hypertension. No medications as outpatient CAD/history of stent Continue aspirin 81 mg daily, statin Chronic back pain with h/o back surgery in the past. DVT prophylaxis. Subcutaneous heparin VS,Fishbone, I+O VS, Fishbone, I+O Laboratory Tests 07/03/18 05:55 Red Blood Count 4.10, Mean Corpuscular Volume 79.8 L, Mean Corpuscular Hemoglobin 25.1 L, Mean Corpuscular Hemoglobin Concent 31.5 L, Red Cell Distribution Width 19.6 H, Neutrophils (%) (Auto) 57.0, Lymphocytes (%) (Auto) 20.1 L, Monocytes (%) (Auto) 10.8 H, Eosinophils (%) (Auto) 9.9 H, Basophils (%) (Auto) 0.8, Neutrophils # (Auto) 5.1, Lymphocytes # (Auto) 1.8, Monocytes # (Auto) 1.0 H, Eosinophils # (Auto) 0.9 H, Basophils # (Auto) 0.1, Calcium Level 9.0 Vital Signs Date Time Temp Pulse Resp B/P (MAP) Pulse Ox O2 Delivery O2 Flow Rate FiO2 07/03/18 10:25 18 Room Air 07/03/18 06:00 97.8 73 115/58 (12) 92 I&O- Last 24 Hours up to 6 AM0 07/03/18 06:00 Intake Total 780 ml Output Total 100 ml Balance 680 ml MINDY ALLEN MD Jul 03, 2018 11:46
[2018-07-03 12:05] VITALS: BP 101/51
[2018-07-03 14:00] VITALS: BP 91/52
[2018-07-03] MEDS: LEVOTHYROXINE 125MCG TABLET (0.125MG) PO SCH (21:13)
[2018-07-03 22:00] VITALS: BP 118/56
[2018-07-04] MEDS: PERCOCET 5MG/325MG TAB PO PRN ×2 (00:56→08:29)
[2018-07-04] MEDS: LevoFLOXacin 250 MG TABLET PO SCH (05:47)
[2018-07-04] MEDS: HEPARIN SOD (PORCINE) 5000 UNITS/ML VIAL SC SCH ×3 (05:47→21:12)
[2018-07-04 06:00] VITALS: BP 124/67
[2018-07-04] MEDS: BISACODYL 5 MG TAB PO SCH (07:40)
[2018-07-04] MEDS: SENOKOT S TAB PO SCH ×2 (07:40→21:00)
[2018-07-04] MEDS: LACTULOSE 20 GM/30 ML SYRUP UD PO SCH ×3 (07:40→21:00)
[2018-07-04] MEDS: BISACODYL 10 MG SUPP PR SCH ×2 (07:41→21:00)
[2018-07-04 07:52] LABS: BASO # 0.1 10^3/uL (0.0-0.2); BASO % 0.3 % (0.0-1.0); EOS # 0.7 10^3/uL (0.0-0.50); EOS % 3.8 % (0.0-3.0); HEMATOCRIT 32.7 % (36.0-47.0); HEMOGLOBIN 10.1 g/dl (12.0-15.5); LYMPH # 0.9 10^3/uL (1.5-4.5); MEAN CORPUSCULAR HEMOGLOBIN 24.7 pg (27.0-33.0); MEAN CORPUSCULAR HGB CONC 30.9 g/dl (32.0-36.5); MONO # 0.8 10^3/uL (0.0-0.8); MONO % 4.8 % (0.0-5.0); NEUTROPHILS # 14.7 10^3/uL (1.8-7.7); NEUTROPHILS % 85.4 % (36.0-66.0); PLATELET COUNT, AUTOMATED 478 10^3/uL (150-450); RED BLOOD COUNT 4.09 10^6/uL (4.00-5.40); WHITE BLOOD COUNT 17.3 10^3/uL (4.0-10.0)
[2018-07-04 08:14] LABS: CALCIUM LEVEL 8.7 MG/DL (8.8-10.2); CREATININE FOR GFR 1.42 MG/DL (0.55-1.30); GLOMERULAR FILTRATION RATE 37.9 (>32); POTASSIUM SERUM 4.4 MEQ/L (3.5-5.1); VANCOMYCIN LEVEL TROUGH 13.5 UG/ML (10.0-20.0)
[2018-07-04] MEDS: VANCOMYCIN HCL 1,000 MG, VIAL MATE ADAPTER 1 EACH in D5W 250 ML IV SCH (08:28)
[2018-07-04] MEDS: ASPIRIN 81 MG ENTERIC TAB PO SCH (08:29)
[2018-07-04] MEDS: hydrOXYzine 10 MG TAB PO PRN (08:29)
[2018-07-04] MEDS: ROSUVASTATIN 10 MG TAB (CRESTOR) PO SCH (08:29)
[2018-07-04] MEDS: FLUCONAZOLE 100 MG TAB PO SCH (08:29)
[2018-07-04] MEDS: ONDANSETRON 4MG/2ML VIAL (J2405) IV PRN (08:29)
[2018-07-04] MEDS: FERROUS SULFATE 325MG TAB PO SCH (08:30)
[2018-07-04] MEDS: NYSTATIN 100,000 UNITS/GM TOPICAL PWD 15 GM TOP SCH ×2 (08:30→21:00)
[2018-07-04] MEDS: LACTOBACILLUS ACIDOPHILUS CAP (BACID) PO SCH ×3 (08:30→18:10)
--- NOTE | 2018-07-04 09:41 | IPNPDOC ---
Text Note Date of Service The patient was seen on 07/04/18. NOTE SUBJECTIVE: Patient had 5 loose bowel movements yesterday after lactulose. patient did try to mobilize from bed to commode with full assist but her legs could not bear her weight due to extreme tenderness and they gave way and she had to be lowered to the ground by the assistants. External female cath was placed. No fever or chills. OBJECTIVE: VITALS: PLS SEE BELOW GEN: 77 yo F, appears stated age. Well-nourished, well developed. No acute distress. Alert and oriented x 3. Becomes somewhat agitated with questioning at times. HEENT: Normocephalic, atraumatic. Pupils are equal, round, and reactive to light. Extraocular movements are intact. No nystagmus appreciated. Sclera are nonicteric. Conjunctiva without injection. Nose midline. Nasal turbinates without bogginess. No facial asymmetry. Dry appearing mucous membranes. Pharynx pink and moist, no cobblestoning. Neck supple, trachea midline. CHEST: Regular rate and rhythm, +S1, +S2 LUNGS: Clear to auscultation bilaterally. No wheezes, rales, or rhonchi. Breathing appears symmetric and easy. Patient is speaking in full sentences. No accessory muscle use. ABD: Obese nontender , +Bowel sounds throughout. No rebound or guarding. No costovertebral angle tenderness. EXT: Pulses 2+ bilaterally dorsalis pedis and radial. No lower extremity edema appreciated. SKIN: Chronic venous stasis and lymphedema changes are noted on the bilateral lower extremities. Chronic dry skin with skin scaling. There is an approximate 1 cm fluid and blood filled blister on big toe of the right leg. right lower extremity with diffuse erythema involving the dorsum and planter aspect of the foot and progressing up to the knee. Skin is warm to the touch. severe tenderness with palpation or with moving. There is excoriations on both the inner thighs. The patient has erythematous rash under breast bilaterally and in bilateral groin folds. Back: the buttocks are red and excoriated and raw. there is a finger tip sized opening just above the gluteal cleft. NEURO: Alert and oriented x 3. Cranial nerves III-XII are intact. No focal deficits appreciated. LABORATORY DATA, IMAGING STUDIES, MICROBIOLOGY: REVIEWED PLS SEE BELOW ASSESSMENT AND PLAN: 78 yo F with history of recurrent lower extremity cellulitis, chronic lymphedema and chronic venous stasis, CHF with EF of 50% with regional wall motion abnormalities and grade 1 diastolic dysfunction, moderate pulmonary hypertension, morbid obesity, hypertension, CAD, CKD 3, hypothyroid, nephrolithiasis, cholelithiasis, hyperlipidemia States she follows as needed with wound care, Dr. Sena Bimal [place]. She has not been seen there recently. The patient states she was feeling well until approximately 2 evenings ago when she had an episode of vomiting. This was followed by right lower extremity erythema, warmth and tenderness which has progressed up to the proximal thigh area. The patient states she had vomiting through last night. She has felt chilled and generally weak. She has not taken her temperature. She has been drinking fluids however not eating in the past 24-48 hours.The patient states she has had multiple similar episodes in the past where she was diagnosed with cellulitis. Typically her right leg becomes red, swollen and tender up to her thigh. The patient was last admitted for a similar issue 11/13/17.Denies any BUENO, CP, SOB, cough, palpitations, abdominal pain, D or changes in bowel habits. The patient states she has chronic urinary incontinence related to OAB, denies dysuria, frequency, urgency or hematuria.Upon presentation to the hospital the patient was found to have cellulitis, thus the hospitalist team was consulted. Right lower extremity Cellulitis/Sepsis Wound culture with multiple organisms. srepto, proteus, corynebacterium, staph MRSA screen positive Seen by ID On vanco and levofloxacin,fluconazole Sacral decubiti with irritant dermatitis in the surrounding buttocks, both groins and inner thighs. stage 2. present on admission. continue wound care, foam dressing, keep the area dry , avoid pressure in wade area as much as possible As per Dr Bowling nothing more can be offered and with her unable to lie on her side the chance of this healing is slim. Constipation now resolved infact she is afraid to have any as this irritates her buttocks very much continue with bowel regimen. Possible fungal UTi on fluconazole DANIELE/CKD3 most probably due to infection and sepsis. slight improvement. CHF systolic and diastolic Has EF of 50% and diastolic dysfunction Difficult to estimate fluid status due to morbid obesity most probably euvolemic Moderate pulmonary hypertension due to CHF and morbid obesity History of nephrolithiasis Renal ultrasound no stones noted Hypothyroid Continue synthroid Dyslipidemia Continue statin. Morbid obesity. BMI 46.4. Complicates care. Malnutrition as she has very low albumin . This makes healing more difficult. Dermatophytosis bilateral breast/groin folds Nystatin powder applied under breasts bilaterally and groin folds. fluconazole. Unsteady gait. Patient uses a walker at home. Request PT eval. Patient refusing to work because of pain Hyperlipidemia continue statin Hypertension. No medications as outpatient CAD/history of stent Continue aspirin 81 mg daily, statin Chronic back pain with h/o back surgery in the past. DVT prophylaxis. Subcutaneous heparin VS,Fishbone, I+O VS, Fishbone, I+O Vital Signs Date Time Temp Pulse Resp B/P (MAP) Pulse Ox O2 Delivery O2 Flow Rate FiO2 07/04/18 06:00 98.4 72 17 124/67 (86) 99 Room Air l I&O- Last 24 Hours up to 6 AM 07/04/18 06:00 Intake Total 120 ml Output Total 0 ml Balance 120 ml MINDY ALLEN MD Jul 04, 2018 07:18
[2018-07-04 14:00] VITALS: BP 127/71
[2018-07-04] MEDS: LEVOTHYROXINE 125MCG TABLET (0.125MG) PO SCH (21:12)
[2018-07-04 22:00] VITALS: BP 122/58
[2018-07-05 05:48] LABS: BASO # 0.1 10^3/uL (0.0-0.2); BASO % 0.6 % (0.0-1.0); EOS # 0.6 10^3/uL (0.0-0.50); EOS % 5.8 % (0.0-3.0); HEMATOCRIT 32.5 % (36.0-47.0); HEMOGLOBIN 10.2 g/dl (12.0-15.5); LYMPH # 1.5 10^3/uL (1.5-4.5); LYMPH % 13.9 % (24.0-44.0); MEAN CORPUSCULAR HEMOGLOBIN 24.6 pg (27.0-33.0); MEAN CORPUSCULAR HGB CONC 31.4 g/dl (32.0-36.5); MEAN CORPUSCULAR VOLUME 78.3 fl (80.0-96.0); MONO # 1.1 10^3/uL (0.0-0.8); MONO % 9.6 % (0.0-5.0); NEUTROPHILS # 7.6 10^3/uL (1.8-7.7); NEUTROPHILS % 69.4 % (36.0-66.0); PLATELET COUNT, AUTOMATED 453 10^3/uL (150-450); RED BLOOD COUNT 4.15 10^6/uL (4.00-5.40)
[2018-07-05] MEDS: HEPARIN SOD (PORCINE) 5000 UNITS/ML VIAL SC SCH ×3 (05:57→20:54)
[2018-07-05] MEDS: LevoFLOXacin 250 MG TABLET PO SCH (05:57)
[2018-07-05 06:00] VITALS: BP 110/58
[2018-07-05 06:12] LABS: CALCIUM LEVEL 8.5 MG/DL (8.8-10.2); CREATININE FOR GFR 1.37 MG/DL (0.55-1.30); GLOMERULAR FILTRATION RATE 39.5 (>32); POTASSIUM SERUM 4.2 MEQ/L (3.5-5.1)
[2018-07-05] MEDS: ONDANSETRON 4MG/2ML VIAL (J2405) IV PRN (08:00)
[2018-07-05] MEDS: BISACODYL 10 MG SUPP PR SCH ×2 (09:00→21:00)
[2018-07-05] MEDS: SENOKOT S TAB PO SCH ×2 (09:00→21:00)
[2018-07-05] MEDS: BISACODYL 5 MG TAB PO SCH (09:00)
[2018-07-05] MEDS: LACTULOSE 20 GM/30 ML SYRUP UD PO SCH ×3 (09:00→21:00)
[2018-07-05] MEDS: NYSTATIN 100,000 UNITS/GM TOPICAL PWD 15 GM TOP SCH ×2 (09:00→20:54)
[2018-07-05] MEDS: FLUCONAZOLE 100 MG TAB PO SCH (09:08)
[2018-07-05] MEDS: ASPIRIN 81 MG ENTERIC TAB PO SCH (09:08)
[2018-07-05] MEDS: ROSUVASTATIN 10 MG TAB (CRESTOR) PO SCH (09:08)
[2018-07-05] MEDS: FERROUS SULFATE 325MG TAB PO SCH (09:08)
[2018-07-05] MEDS: LACTOBACILLUS ACIDOPHILUS CAP (BACID) PO SCH ×3 (09:08→18:37)
[2018-07-05] MEDS: PERCOCET 5MG/325MG TAB PO PRN (09:09)
[2018-07-05] MEDS: EUCERIN 120GM CREAM TOP PRN (09:10)
--- NOTE | 2018-07-05 10:18 | IPNPDOC ---
Subjective Date Seen The patient was seen on 07/05/18. Subjective Chief Complaint/HPI . General: Reports: Fatigue, Malaise; Denies: Chills Constitutional: Reports: Malaise, Weakness, Fatigue; Denies: Fever Pulmonary: Reports: Dyspnea; Denies: Cough Cardiovascular: Reports: Edema (b/l le); Denies: Chest Pain, Palpitations, Lt Headedness Gastrointestinal: Reports: Nausea; Denies: Vomiting, Abdominal Pain, Diarrhea, Constipation Genitourinary: Denies: Dysuria Neurological: Reports: Weakness Psych: Reports: Mood Normal Objective Physical Examination General Exam: Positive: Alert, Cooperative, No Acute Distress Eye Exam: Positive: Conjunctiva & lids normal ENT Exam: Positive: Mucous membr. moist/pink Chest Exam: Positive: Diminished; Negative: Rales, Rhonchi, Wheezing Heart Exam: Positive: Normal S1, Normal S2; Negative: Gallops, Murmurs, Rubs Abdomen Exam: Positive: Normal bowel sounds, Soft; Negative: Tenderness, Hepatospenomegaly Extremity Exam: Positive: Edema; Negative: Clubbing, Cyanosis Skin Exam: Positive: Breakdown (extensive breakdown but without pus, in inguinal folds b/l, right medial aspect of LE, sacrum with tunneling tract, no drainage, pannus folds show signs of skin breakdown of abdomen) Psych Exam: Positive: Oriented x 3 Assessment /Plan Assessment ASSESSMENT AND PLAN: 78 yo F with history of recurrent lower extremity cellulitis, chronic lymphedema and chronic venous stasis, CHF with EF of 50% with regional wall motion abnormalities and grade 1 diastolic dysfunction, moderate pulmonary hypertension, morbid obesity, hypertension, CAD, CKD 3, hypothyroid, nephrolithiasis, cholelithiasis, hyperlipidemia States she follows as needed with wound care, Dr. Sena [facility]. She has not been seen there recently. The patient states she was feeling well until approximately 2 evenings ago when she had an episode of vomiting. This was followed by right lower extremity erythema, warmth and tenderness which has progressed up to the proximal thigh area. The patient states she had vomiting through last night. She has felt chilled and generally weak. She has not taken her temperature. She has been drinking fluids however not eating in the past 24-48 hours.The patient states she has had multiple similar episodes in the past where she was diagnosed with cellulitis. Typically her right leg becomes red, swollen and tender up to her thigh. The patient was last admitted for a similar issue 11/13/17.Denies any BUENO, CP, SOB, cough, palpitations, abdominal pain, D or changes in bowel habits. The patient states she has chronic urinary incontinence related to OAB, denies dysuria, frequency, urgency or hematuria.Upon presentation to the hospital the patient was found to have cellulitis, thus the hospitalist team was consulted. 1. Right lower extremity Cellulitis/Sepsis -Wound culture with multiple organisms. strep, proteus, corynebacterium, staph -MRSA screen positive -afebrile, WBC has improved today -Seen by ID-appreciate their help -On vanco and levofloxacin,fluconazole 2. Sacral decubiti stage 2 present on admisison with irritant dermatitis in the surrounding buttocks, both groins and inner thighs -examined again today, no barrett pus from any areas of skin brakdown -will ask wound care nurse to evaluate -continue wound care, foam dressing, keep the area dry , avoid pressure in wade area as much as possible -As per Dr Bowling nothing more can be offered and with her unable to lie on her side the chance of this healing is slim 3. Constipation -resolved -continue with bowel regimen. 4 .Possible fungal UTi -c/w fluconazole 5. DANIELE/CKD3 -most probably due to infection and sepsis -slight improvement again today 6. CHF systolic and diastolic -EF of 50% and diastolic dysfunction -Difficult to estimate fluid status due to morbid obesity -appears euvolemic 7. Moderate pulmonary hypertension -2/2 CHF and morbid obesity 8. History of nephrolithiasis -Renal ultrasound without renal calculi noted 9. Hypothyroid -c/w Synthroid 10. Dyslipidemia -c/w 11. Morbid obesity - BMI 46.4 - Complicates care. 12. Malnutrition - low albumin . This makes healing more difficult. 13. Dermatophytosis bilateral breast/groin folds -Nystatin powder applied under breasts bilaterally and groin folds. -c/w fluconazole. 14. Unsteady gait - Patient uses a walker at home but rarely moves from bed due to body habitus -PT did work with pt yesterday, will again today 15. Hyperlipidemia -c/w statin 16. Hypertension. No medications as outpatient -stable 17. CAD/history of stent -c/w aspirin 81 mg daily, statin 18. Chronic back pain -h/o back surgery in the past -stable DVT prophylaxis. Subcutaneous heparin Plan/VTE VTE Prophylaxis Ordered?: Yes VS, I&O, 24H, Shantbone Vital Signs/I&O Vital Signs Date Time Temp Pulse Resp B/P (MAP) Pulse Ox O2 Delivery O2 Flow Rate FiO2 07/05/18 09:09 18 Room Air 07/05/18 06:00 97.4 73 110/58 (75) 92 I&O- Last 24 Hours up to 6 AM 07/05/18 06:00 Intake Total 630 ml Output Total 0 ml Balance 630 ml Laboratory Data 24H LABS Laboratory Tests 2 07/05/18 05:28: Immature Granulocyte % (Auto) 0.7, White Blood Count 11.0H, Red Blood Count 4.15, Hemoglobin 10.2L, Hematocrit 32.5L, Mean Corpuscular Volume 78.3L, Mean Corpuscular Hemoglobin 24.6L, Mean Corpuscular Hemoglobin Concent 31.4L, Red Cell Distribution Width 19.6H, Platelet Count 453H, Neutrophils (%) (Auto) 69.4H, Lymphocytes (%) (Auto) 13.9L, Monocytes (%) (Auto) 9.6H, Eosinophils (%) (Auto) 5.8H, Basophils (%) (Auto) 0.6, Neutrophils # (Auto) 7.6, Lymphocytes # (Auto) 1.5, Monocytes # (Auto) 1.1H, Eosinophils # (Auto) 0.6H, Basophils # (Auto) 0.1, Nucleated Red Blood Cells % (auto) 0.0, Anion Gap 6L, Glomerular Filtration Rate 39.5, Blood Urea Nitrogen 16, Creatinine 1.37H, Sodium Level 139, Potassium Level 4.2, Chloride Level 111H, Carbon Dioxide Level 22, Calcium Level 8.5L, C-Reactive Protein, Quantitative 13.00H CBC/BMP Laboratory Tests 07/05/18 05:28 Red Blood Count 4.15, Mean Corpuscular Volume 78.3 L, Mean Corpuscular Hemoglobin 24.6 L, Mean Corpuscular Hemoglobin Concent 31.4 L, Red Cell Distribution Width 19.6 H, Neutrophils (%) (Auto) 69.4 H, Lymphocytes (%) (Auto) 13.9 L, Monocytes (%) (Auto) 9.6 H, Eosinophils (%) (Auto) 5.8 H, Basophils (%) (Auto) 0.6, Neutrophils # (Auto) 7.6, Lymphocytes # (Auto) 1.5, Monocytes # (Auto) 1.1 H, Eosinophils # (Auto) 0.6 H, Basophils # (Auto) 0.1, Calcium Level 8.5 L GME ATTESTATION GME ATTESTATION My faculty preceptor for this patient encounter was physically present during the encounter and was fully available. All aspects of the patient interview, examination, medical decision making process, and medical care plan development were reviewed and approved by the faculty preceptor. The faculty preceptor is aware and concurs with the plan as stated in the body of this note and will att est to such by his/her cosignature. FANTASMA ALBA DO Jul 05, 2018 10:18
[2018-07-05 14:00] VITALS: BP 114/57
[2018-07-05] MEDS: LEVOTHYROXINE 125MCG TABLET (0.125MG) PO SCH (20:53)
[2018-07-05 22:00] VITALS: BP 96/55
[2018-07-06] MEDS: HEPARIN SOD (PORCINE) 5000 UNITS/ML VIAL SC SCH ×3 (05:23→21:08)
[2018-07-06] MEDS: LevoFLOXacin 250 MG TABLET PO SCH (05:23)
[2018-07-06] MEDS: PERCOCET 5MG/325MG TAB PO PRN ×2 (05:24→23:34)
[2018-07-06 05:52] LABS: BASO # 0.1 10^3/uL (0.0-0.2); BASO % 0.7 % (0.0-1.0); EOS # 0.6 10^3/uL (0.0-0.50); EOS % 6.4 % (0.0-3.0); HEMATOCRIT 32.5 % (36.0-47.0); HEMOGLOBIN 10.1 g/dl (12.0-15.5); LYMPH # 1.4 10^3/uL (1.5-4.5); LYMPH % 15.1 % (24.0-44.0); MEAN CORPUSCULAR HEMOGLOBIN 24.8 pg (27.0-33.0); MEAN CORPUSCULAR HGB CONC 31.1 g/dl (32.0-36.5); MEAN CORPUSCULAR VOLUME 79.9 fl (80.0-96.0); MONO # 1.1 10^3/uL (0.0-0.8); MONO % 12.3 % (0.0-5.0); NEUTROPHILS % 64.7 % (36.0-66.0); PLATELET COUNT, AUTOMATED 421 10^3/uL (150-450); RED BLOOD COUNT 4.07 10^6/uL (4.00-5.40); WHITE BLOOD COUNT 9.2 10^3/uL (4.0-10.0)
[2018-07-06 06:00] VITALS: BP 96/58
[2018-07-06 06:16] LABS: CALCIUM LEVEL 8.3 MG/DL (8.8-10.2); CREATININE FOR GFR 1.36 MG/DL (0.55-1.30); GLOMERULAR FILTRATION RATE 39.8 (>32); POTASSIUM SERUM 4.2 MEQ/L (3.5-5.1)
[2018-07-06] MEDS: LACTULOSE 20 GM/30 ML SYRUP UD PO SCH ×3 (08:17→21:00)
[2018-07-06] MEDS: VANCOMYCIN HCL 1,000 MG, VIAL MATE ADAPTER 1 EACH in D5W 250 ML IV SCH (08:17)
[2018-07-06] MEDS: BISACODYL 10 MG SUPP PR SCH ×2 (08:17→21:00)
[2018-07-06] MEDS: FLUCONAZOLE 100 MG TAB PO SCH (08:18)
[2018-07-06] MEDS: ROSUVASTATIN 10 MG TAB (CRESTOR) PO SCH (08:18)
[2018-07-06] MEDS: SENOKOT S TAB PO SCH ×2 (08:18→21:00)
[2018-07-06] MEDS: BISACODYL 5 MG TAB PO SCH (08:18)
[2018-07-06] MEDS: LACTOBACILLUS ACIDOPHILUS CAP (BACID) PO SCH ×3 (08:19→16:59)
[2018-07-06] MEDS: FERROUS SULFATE 325MG TAB PO SCH (08:19)
[2018-07-06] MEDS: NYSTATIN 100,000 UNITS/GM TOPICAL PWD 15 GM TOP SCH ×2 (08:19→21:08)
[2018-07-06] MEDS: ASPIRIN 81 MG ENTERIC TAB PO SCH (08:19)
[2018-07-06] MEDS: EUCERIN 120GM CREAM TOP PRN (08:19)
[2018-07-06 08:44] LABS: C REACTIVE PROTEIN QUANTITATIV 10.9 MG/DL (0.00-0.30)
--- NOTE | 2018-07-06 13:52 | IPNPDOC ---
Subjective Date Seen The patient was seen on 07/06/18. Subjective Chief Complaint/HPI . General: Reports: Fatigue, Malaise; Denies: Chills Constitutional: Reports: Weakness Pulmonary: Denies: Dyspnea, Cough Cardiovascular: Denies: Chest Pain, Palpitations Gastrointestinal: Denies: Nausea, Vomiting, Abdominal Pain, Diarrhea, Constipation Neurological: Reports: Weakness Psych: Reports: Mood Normal Objective Physical Examination General Exam: Positive: Alert, Cooperative, No Acute Distress Eye Exam: Positive: Conjunctiva & lids normal ENT Exam: Positive: Mucous membr. moist/pink Chest Exam: Positive: Diminished; Negative: Rales, Rhonchi, Wheezing Heart Exam: Positive: Normal S1, Normal S2; Negative: Gallops, Murmurs, Rubs Abdomen Exam: Positive: Normal bowel sounds, Soft; Negative: Tenderness, Hepatospenomegaly Extremity Exam: Positive: Edema; Negative: Clubbing, Cyanosis Skin Exam: Positive: Breakdown (extensive breakdown but without pus, in inguinal folds b/l, right medial aspect of LE, sacrum with tunneling tract, no drainage, pannus folds show signs of skin breakdown of abdomen) Psych Exam: Positive: Oriented x 3 Assessment /Plan Assessment 1. Right lower extremity Cellulitis/Sepsis -CRP improved to 10 -c/w wound care -Wound culture with multiple organisms. strep, proteus, corynebacterium, staph -MRSA screen positive -afebrile, WBC has improved today -Seen by ID-appreciate their help -On vanco and levofloxacin,fluconazole 2. Sacral decubiti stage 2 present on admission with irritant dermatitis in the surrounding buttocks, both groins and inner thighs -will ask wound care nurse to evaluate-pt will benefit from continued wound care outpt once discharged -continue wound care, foam dressing, keep the area dry , avoid pressure in wade area as much as possible -As per Dr Bowling nothing more can be offered and with her unable to lie on her side the chance of this healing is slim 3. Constipation -resolved -continue with bowel regimen. 4 .Possible fungal UTI -c/w fluconazole 5. DANIELE/CKD3 -most probably due to infection and sepsis -slight improvement again today 6. CHF systolic and diastolic -EF of 50% and diastolic dysfunction -Difficult to estimate fluid status due to morbid obesity -appears euvolemic 7. Moderate pulmonary hypertension -2/2 CHF and morbid obesity 8. History of nephrolithiasis -Renal ultrasound without renal calculi noted 9. Hypothyroid -c/w Synthroid 10. Dyslipidemia -c/w 11. Morbid obesity -patient will likely require sub-acute rehab, to continue to work with PT In house - BMI 46.4 - Complicates care. 12. Malnutrition - low albumin . This makes healing more difficult. 13. Dermatophytosis bilateral breast/groin folds -Nystatin powder applied under breasts bilaterally and groin folds. -c/w fluconazole. 14. Unsteady gait - Patient uses a walker at home but rarely moves from bed due to body habitus -PT did work with pt yesterday, will again today -will likely need sub-acute rehab 15. Hyperlipidemia -c/w statin 16. Hypertension. No medications as outpatient -stable 17. CAD/history of stent -c/w aspirin 81 mg daily, statin 18. Chronic back pain -h/o back surgery in the past -stable DVT prophylaxis. Subcutaneous heparin Plan/VTE VTE Prophylaxis Ordered?: Yes VS, I&O, 24H, [facility], 1928–1983 Vital Signs/I&O Vital Signs Date Time Temp Pulse Resp B/P (MAP) Pulse Ox O2 Delivery O2 Flow Rate FiO2 07/06/18 06:00 97.5 71 16 96/58 (71) 95 Room Air I&O- Last 24 Hours up to 6 AM 07/06/18 06:00 Intake Total 1020 ml Output Total 350 ml Balance 670 ml Laboratory Data 24H LABS Laboratory Tests 2 07/06/18 05:30: Immature Granulocyte % (Auto) 0.8, White Blood Count 9.2, Red Blood Count 4.07, Hemoglobin 10.1L, Hematocrit 32.5L, Mean Corpuscular Volume 79.9L, Mean Corpuscular Hemoglobin 24.8L, Mean Corpuscular Hemoglobin Concent 31.1L, Red Cell Distribution Width 19.2H, Platelet Count 421, Neutrophils (%) (Auto) 64.7, Lymphocytes (%) (Auto) 15.1L, Monocytes (%) (Auto) 12.3H, Eosinophils (%) (Auto) 6.4H, Basophils (%) (Auto) 0.7, Neutrophils # (Auto) 6.0, Lymphocytes # (Auto) 1.4L, Monocytes # (Auto) 1.1H, Eosinophils # (Auto) 0.6H, Basophils # (Auto) 0.1, Nucleated Red Blood Cells % (auto) 0.0, Anion Gap 7L, Glomerular Filtration Rate 39.8, Blood Urea Nitrogen 14, Creatinine 1.36H, Sodium Level 139, Potassium Level 4.2, Chloride Level 108H, Carbon Dioxide Level 24, Calcium Level 8.3L, C- Reactive Protein, Quantitative 10.90H CBC/BMP Laboratory Tests 07/06/18 05:30 Red Blood Count 4.07, Mean Corpuscular Volume 79.9 L, Mean Corpuscular Hemoglobin 24.8 L, Mean Corpuscular Hemoglobin Concent 31.1 L, Red Cell Distribution Width 19.2 H, Neutrophils (%) (Auto) 64.7, Lymphocytes (%) (Auto) 15.1 L, Monocytes (%) (Auto) 12.3 H, Eosinophils (%) (Auto) 6.4 H, Basophils (%) (Auto) 0.7, Neutrophils # (Auto) 6.0, Lymphocytes # (Auto) 1.4 L, Monocytes # (Auto) 1.1 H, Eosinophils # (Auto) 0.6 H, Basophils # (Auto) 0.1, Calcium Level 8.3 L GME ATTESTATION GME ATTESTATION My faculty preceptor for this patient encounter was physically present during the encounter and was fully available. All aspects of the patient interview, examination, medical decision making process, and medical care plan development were reviewed and approved by the faculty preceptor. The faculty preceptor is aware and concurs with the plan as stated in the body of this note and will attest to such by his/her cosignature. FANTASMA ALBA DO Jul 06, 2018 13:52
[2018-07-06 14:00] VITALS: BP 115/53
[2018-07-06] MEDS: LEVOTHYROXINE 125MCG TABLET (0.125MG) PO SCH (21:07)
[2018-07-06] MEDS: hydrOXYzine 10 MG TAB PO PRN (21:09)
[2018-07-06 22:00] VITALS: BP 102/59
[2018-07-07] MEDS: PERCOCET 5MG/325MG TAB PO PRN ×2 (03:40→11:39)
[2018-07-07] MEDS: HEPARIN SOD (PORCINE) 5000 UNITS/ML VIAL SC SCH ×3 (05:38→21:40)
[2018-07-07] MEDS: LevoFLOXacin 250 MG TABLET PO SCH (05:38)
[2018-07-07 06:00] VITALS: BP 100/58
[2018-07-07 06:13] LABS: BASO # 0.1 10^3/uL (0.0-0.2); EOS # 0.5 10^3/uL (0.0-0.50); EOS % 5.4 % (0.0-3.0); HEMATOCRIT 34.8 % (36.0-47.0); HEMOGLOBIN 10.8 g/dl (12.0-15.5); LYMPH # 1.4 10^3/uL (1.5-4.5); LYMPH % 15.6 % (24.0-44.0); MEAN CORPUSCULAR HEMOGLOBIN 24.6 pg (27.0-33.0); MEAN CORPUSCULAR VOLUME 79.3 fl (80.0-96.0); MONO # 1.1 10^3/uL (0.0-0.8); MONO % 12.2 % (0.0-5.0); NEUTROPHILS # 5.8 10^3/uL (1.8-7.7); NEUTROPHILS % 65.5 % (36.0-66.0); PLATELET COUNT, AUTOMATED 428 10^3/uL (150-450); RED BLOOD COUNT 4.39 10^6/uL (4.00-5.40); WHITE BLOOD COUNT 8.8 10^3/uL (4.0-10.0)
[2018-07-07 06:24] LABS: CREATININE FOR GFR 1.6 MG/DL (0.55-1.30); POTASSIUM SERUM 4.3 MEQ/L (3.5-5.1)
[2018-07-07] MEDS: ASPIRIN 81 MG ENTERIC TAB PO SCH (08:18)
[2018-07-07] MEDS: FERROUS SULFATE 325MG TAB PO SCH (08:18)
[2018-07-07] MEDS: FLUCONAZOLE 100 MG TAB PO SCH (08:18)
[2018-07-07] MEDS: LACTOBACILLUS ACIDOPHILUS CAP (BACID) PO SCH ×3 (08:18→17:56)
[2018-07-07] MEDS: ROSUVASTATIN 10 MG TAB (CRESTOR) PO SCH (08:18)
[2018-07-07] MEDS: NYSTATIN 100,000 UNITS/GM TOPICAL PWD 15 GM TOP SCH ×2 (08:19→21:40)
[2018-07-07] MEDS: SENOKOT S TAB PO SCH ×2 (08:26→21:00)
[2018-07-07] MEDS: LACTULOSE 20 GM/30 ML SYRUP UD PO SCH ×3 (08:26→21:00)
[2018-07-07] MEDS: BISACODYL 10 MG SUPP PR SCH (08:26)
[2018-07-07] MEDS: BISACODYL 5 MG TAB PO SCH (08:26)
--- NOTE | 2018-07-07 12:07 | IPNPDOC ---
Subjective Date Seen The patient was seen on 07/07/18. Subjective Chief Complaint/HPI . General: Reports: Fatigue, Malaise; Denies: Chills Pulmonary: Denies: Dyspnea, Cough Cardiovascular: Denies: Chest Pain Gastrointestinal: Reports: Nausea; Denies: Vomiting, Abdominal Pain, Diarrhea Neurological: Reports: Weakness Psych: Reports: Mood Normal Objective Physical Examination General Exam: Positive: Alert, Cooperative, No Acute Distress Eye Exam: Positive: Conjunctiva & lids normal ENT Exam: Positive: Mucous membr. moist/pink Chest Exam: Positive: Diminished; Negative: Rales, Rhonchi, Wheezing Heart Exam: Positive: Normal S1, Normal S2; Negative: Gallops, Murmurs, Rubs Abdomen Exam: Positive: Normal bowel sounds, Soft; Negative: Tenderness, Hepatospenomegaly Extremity Exam: Positive: Edema; Negative: Clubbing, Cyanosis Skin Exam: Positive: Breakdown (extensive breakdown but without pus, in inguinal folds b/l, right medial aspect of LE, sacrum with tunneling tract, no drainage, pannus folds show signs of skin breakdown of abdomen) Psych Exam: Positive: Oriented x 3 Assessment /Plan Assessment 1. Right lower extremity Cellulitis/Sepsis -CRP improved to 10.90 yesterday -c/w wound care -Wound culture with multiple organisms. strep, proteus, corynebacterium, staph -MRSA screen positive -afebrile, WBC has normalized today -Seen by ID-appreciate their help -On vanco and levofloxacin,fluconazole 2. Sacral decubiti stage 2 present on admission with irritant dermatitis in the surrounding buttocks, both groins and inner thighs -pt will benefit from continued wound care outpt once discharged -continue wound care, foam dressing, keep the area dry , avoid pressure in the area as much as possible -As per Dr Bowling nothing more can be offered and with her unable to lie on her side the chance of this healing is slim 3. Constipation -resolved -continue with bowel regimen. 4 .Possible fungal UTI -c/w fluconazole 5. DANIELE/CKD3 -most probably due to infection and sepsis -slight decline today to 1.60 -continue to monitor, IVF 6. CHF systolic and diastolic -EF of 50% and diastolic dysfunction -Difficult to estimate fluid status due to morbid obesity -appears euvolemic on exam today again 7. Moderate pulmonary hypertension -2/2 CHF and morbid obesity 8. History of nephrolithiasis -Renal ultrasound without renal calculi noted 9. Hypothyroid -c/w Synthroid 10. Dyslipidemia -c/w 11. Morbid obesity -patient will likely require sub-acute rehab, to continue to work with PT In house - BMI 46.4 - Complicates care -c/w PT 12. Malnutrition - low albumin . This makes healing more difficult. 13. Dermatophytosis bilateral breast/groin folds -Nystatin powder applied under breasts bilaterally and groin folds. -c/w fluconazole. 14. Unsteady gait - Patient uses a walker at home but rarely moves from bed due to body habitus -PT did work with pt -will likely need sub-acute rehab 15. Hyperlipidemia -c/w statin 16. Hypertension. No medications as outpatient -stable 17. CAD/history of stent -c/w aspirin 81 mg daily, statin 18. Chronic back pain -h/o back surgery in the past -stable DVT prophylaxis. Subcutaneous heparin Plan/VTE VTE Prophylaxis Ordered?: Yes VS, I&O, 24H, [facility] Vital Signs/I&O Vital Signs Date Time Temp Pulse Resp B/P (MAP) Pulse Ox O2 Delivery O2 Flow Rate FiO2 07/07/18 11:39 18 07/07/18 06:00 96.8 76 100/58 (72) 96 Room Air I&O- Last 24 Hours up to 6 AM 07/07/18 05:59 Intake Total 550 ml Output Total 450 ml Balance 100 ml Laboratory Data 24H LABS Laboratory Tests 2 07/07/18 05:39: Immature Granulocyte % (Auto) 0.3, White Blood Count 8.8, Red Blood Count 4.39, Hemoglobin 10.8L, Hematocrit 34.8L, Mean Corpuscular Volume 79.3L, Mean Corpuscular Hemoglobin 24.6L, Mean Corpuscular Hemoglobin Concent 31.0L, Red Cell Distribution Width 19.4H, Platelet Count 428, Neutrophils (%) (Auto) 65.5, Lymphocytes (%) (Auto) 15.6L, Monocytes (%) (Auto) 12.2H, Eosinophils (%) (Auto) 5.4H, Basophils (%) (Auto) 1.0, Neutrophils # (Auto) 5.8, Lymphocytes # (Auto) 1.4L, Monocytes # (Auto) 1.1H, Eosinophils # (Auto) 0.5, Basophils # (Auto) 0.1, Nucleated Red Blood Cells % (auto) 0.0, Anion Gap 8, Glomerular Filtration Rate 33.0, Blood Urea Nitrogen 14, Creatinine 1.60H, Sodium Level 138, Potassium Level 4.3, Chloride Level 108H, Carbon Dioxide Level 22, Calcium Level 9.0 CBC/BMP Laboratory Tests 07/07/18 05:39 Red Blood Count 4.39, Mean Corpuscular Volume 79.3 L, Mean Corpuscular Hemoglobin 24.6 L, Mean Corpuscular Hemoglobin Concent 31.0 L, Red Cell Distribution Width 19.4 H, Neutrophils (%) (Auto) 65.5, Lymphocytes (%) (Auto) 15.6 L, Monocytes (%) (Auto) 12.2 H, Eosinophils (%) (Auto) 5.4 H, Basophils (%) (Auto) 1.0, Neutrophils # (Auto) 5.8, Lymphocytes # (Auto) 1.4 L, Monocytes # (Auto) 1.1 H, Eosinophils # (Auto) 0.5, Basophils # (Auto) 0.1, Calcium Level 9.0 GME ATTESTATION GME ATTESTATION My faculty preceptor for this patient encounter was physically present during the encounter and was fully available. All aspects of the patient interview, examination, medical decision making process, and medical care plan development were reviewed and approved by the faculty preceptor. The faculty preceptor is aware and concurs with the plan as stated in the body of this note and will attest to such by his/her cosignature. FANTASMA ALBA DO Jul 07, 2018 12:07
[2018-07-07 14:00] VITALS: BP 103/53
[2018-07-07] MEDS: hydrOXYzine 10 MG TAB PO PRN (21:39)
[2018-07-07] MEDS: LEVOTHYROXINE 125MCG TABLET (0.125MG) PO SCH (21:40)
[2018-07-07 22:00] VITALS: BP 94/54
[2018-07-08] MEDS: ONDANSETRON 4MG/2ML VIAL (J2405) IV PRN (05:14)
[2018-07-08] MEDS: LevoFLOXacin 250 MG TABLET PO SCH (05:14)
[2018-07-08] MEDS: HEPARIN SOD (PORCINE) 5000 UNITS/ML VIAL SC SCH ×3 (05:14→21:04)
[2018-07-08 06:00] VITALS: BP 112/58
[2018-07-08 06:05] LABS: BASO # 0.1 10^3/uL (0.0-0.2); BASO % 1.3 % (0.0-1.0); EOS # 0.6 10^3/uL (0.0-0.50); EOS % 8.7 % (0.0-3.0); HEMATOCRIT 33.7 % (36.0-47.0); HEMOGLOBIN 10.3 g/dl (12.0-15.5); LYMPH # 1.4 10^3/uL (1.5-4.5); LYMPH % 20.8 % (24.0-44.0); MEAN CORPUSCULAR HEMOGLOBIN 24.6 pg (27.0-33.0); MEAN CORPUSCULAR HGB CONC 30.6 g/dl (32.0-36.5); MEAN CORPUSCULAR VOLUME 80.4 fl (80.0-96.0); MONO # 0.9 10^3/uL (0.0-0.8); MONO % 13.4 % (0.0-5.0); NEUTROPHILS # 3.8 10^3/uL (1.8-7.7); NEUTROPHILS % 55.5 % (36.0-66.0); PLATELET COUNT, AUTOMATED 417 10^3/uL (150-450); RED BLOOD COUNT 4.19 10^6/uL (4.00-5.40); WHITE BLOOD COUNT 6.9 10^3/uL (4.0-10.0)
[2018-07-08 06:29] LABS: CALCIUM LEVEL 9.2 MG/DL (8.8-10.2); CREATININE FOR GFR 1.55 MG/DL (0.55-1.30); GLOMERULAR FILTRATION RATE 34.2 (>32); POTASSIUM SERUM 4.1 MEQ/L (3.5-5.1)
[2018-07-08] MEDS: LACTULOSE 20 GM/30 ML SYRUP UD PO SCH ×3 (07:44→20:58)
[2018-07-08] MEDS: SENOKOT S TAB PO SCH ×2 (07:45→20:58)
[2018-07-08] MEDS: LACTOBACILLUS ACIDOPHILUS CAP (BACID) PO SCH ×3 (08:52→18:17)
[2018-07-08] MEDS: ROSUVASTATIN 10 MG TAB (CRESTOR) PO SCH (08:52)
[2018-07-08] MEDS: FERROUS SULFATE 325MG TAB PO SCH (08:54)
[2018-07-08] MEDS: FLUCONAZOLE 100 MG TAB PO SCH (08:54)
[2018-07-08] MEDS: VANCOMYCIN HCL 1,000 MG, VIAL MATE ADAPTER 1 EACH in D5W 250 ML IV SCH (08:54)
[2018-07-08] MEDS: NYSTATIN 100,000 UNITS/GM TOPICAL PWD 15 GM TOP SCH ×2 (08:54→21:05)
[2018-07-08] MEDS: ASPIRIN 81 MG ENTERIC TAB PO SCH (08:54)
[2018-07-08] MEDS: PERCOCET 5MG/325MG TAB PO PRN ×2 (11:08→18:19)
--- NOTE | 2018-07-08 13:20 | IPNPDOC ---
Text Note Date of Service The patient was seen on 07/08/18. NOTE Subjective: Pt feels well. Denies CP/SOB/palpitations. Has been asked to roll and change positions given decub wound, however patient has been reluctant to cooperate, and states that it will heal on its own when she gets home. PT on board. Objective: Vitals: (see below) General: No acute distress, laying comfortably in bed. HEENT: Moist mucous membranes. Neck: No JVD or lymphadenopathy Cardiac: RRR, No murmurs Pulm: Clear to auscultation b/l. No wheezing, rhonchi Abd: NT/ND + BS. Obese. Ext: Trace to 1+ edema BLE. No cyanosis. Chronic LE changes. No active infecti on. Distal pulses intact. Labs (see below) Assessment/Plan 1. RLE cellulitis. S/p sepsis. Wound cx strep/proteus/cornybacterium, staph, MRSA +. Seen by ID. On Vanco/levaquin. s/p fluconazole. 2. Sacral decub with dermatitis - stage 2 that has been noted to be on admission. Wound care. Dr. Marte has spoken to Dr. Bowlnig with no surgical intervention recommended. Pt advised to cooperate with turning/rolling. PT consulted. 3. DANIELE on CKD - Cr improved. Avoid nephrotoxins. 4. History of systolic and diastolic. Compensated . 5. History of moderate pulmonary hypertension on need outpatient follow-up 6. Morbid obesity complicated care 7. History of hypothyroidism on Synthroid 8. History of CVA on aspirin and statin 9. History of chronic back pain 10. Gait dysfunction secondary to morbid obesity, and deconditioning. Physical therapy on board. DVT prophy: Heparin subcutaneous Overall prognosis guarded. VS,Fishbone, I+O VS, Fishbone, I+O Laboratory Tests 07/08/18 05:45 Red Blood Count 4.19, Mean Corpuscular Volume 80.4, Mean Corpuscular Hemoglobin 24.6 L, Mean Corpuscular Hemoglobin Concent 30.6 L, Red Cell Distribution Width 19.1 H, Neutrophils (%) (Auto) 55.5, Lymphocytes (%) (Auto) 20.8 L, Monocytes (%) (Auto) 13.4 H, Eosinophils (%) (Auto) 8.7 H, Basophils (%) (Auto) 1.3 H, Neutrophils # (Auto) 3.8, Lymphocytes # (Auto) 1.4 L, Monocytes # (Auto) 0.9 H, Eosinophils # (Auto) 0.6 H, Basophils # (Auto) 0.1, Calcium Level 9.2 Vital Signs Date Time Temp Pulse Resp B/P (MAP) Pulse Ox O2 Delivery O2 Flow Rate FiO2 07/08/18 11:38 18 07/08/18 06:00 97.2 72 112/58 (76) 95 Room Air I&O- Last 24 Hours up to 6 AM 07/08/18 05:59 Intake Total 660 ml Output Total 0 ml Balance 660 ml MCKENNA CLARK MD Jul 08, 2018 13:20
[2018-07-08 14:00] VITALS: BP 92/56
[2018-07-08] MEDS: LEVOTHYROXINE 125MCG TABLET (0.125MG) PO SCH (21:04)
[2018-07-08 22:00] VITALS: BP 97/52
[2018-07-09] MEDS: LevoFLOXacin 250 MG TABLET PO SCH (05:22)
[2018-07-09] MEDS: HEPARIN SOD (PORCINE) 5000 UNITS/ML VIAL SC SCH ×3 (05:23→20:46)
[2018-07-09 06:00] VITALS: BP 95/56
[2018-07-09 06:07] LABS: BASO # 0.1 10^3/uL (0.0-0.2); BASO % 1.2 % (0.0-1.0); EOS # 0.5 10^3/uL (0.0-0.50); EOS % 6.4 % (0.0-3.0); HEMOGLOBIN 10.4 g/dl (12.0-15.5); LYMPH # 1.4 10^3/uL (1.5-4.5); LYMPH % 16.6 % (24.0-44.0); MEAN CORPUSCULAR HEMOGLOBIN 24.9 pg (27.0-33.0); MEAN CORPUSCULAR HGB CONC 30.6 g/dl (32.0-36.5); MEAN CORPUSCULAR VOLUME 81.3 fl (80.0-96.0); MONO % 11.5 % (0.0-5.0); NEUTROPHILS # 5.3 10^3/uL (1.8-7.7); NEUTROPHILS % 63.8 % (36.0-66.0); PLATELET COUNT, AUTOMATED 380 10^3/uL (150-450); RED BLOOD COUNT 4.18 10^6/uL (4.00-5.40); WHITE BLOOD COUNT 8.3 10^3/uL (4.0-10.0)
[2018-07-09 06:31] LABS: CALCIUM LEVEL 9.5 MG/DL (8.8-10.2); CREATININE FOR GFR 1.59 MG/DL (0.55-1.30); GLOMERULAR FILTRATION RATE 33.3 (>32)
[2018-07-09] MEDS: PERCOCET 5MG/325MG TAB PO PRN ×2 (06:53→17:49)
[2018-07-09] MEDS: LACTOBACILLUS ACIDOPHILUS CAP (BACID) PO SCH ×3 (08:52→17:48)
[2018-07-09] MEDS: ROSUVASTATIN 10 MG TAB (CRESTOR) PO SCH (08:52)
[2018-07-09] MEDS: FERROUS SULFATE 325MG TAB PO SCH (08:52)
[2018-07-09] MEDS: ASPIRIN 81 MG ENTERIC TAB PO SCH (08:52)
[2018-07-09] MEDS: NYSTATIN 100,000 UNITS/GM TOPICAL PWD 15 GM TOP SCH ×2 (08:53→20:46)
[2018-07-09] MEDS: LACTULOSE 20 GM/30 ML SYRUP UD PO SCH ×3 (08:53→20:45)
[2018-07-09] MEDS: SENOKOT S TAB PO SCH ×2 (08:54→20:45)
[2018-07-09 14:00] VITALS: BP 97/49
--- NOTE | 2018-07-09 14:34 | IPNPDOC ---
Subjective Date Seen The patient was seen on 07/09/18. Subjective Chief Complaint/HPI . General: Reports: Fatigue; Denies: Chills, Night Sweats Constitutional: Reports: Weakness Skin: Reports: Lesions (b/l LE and sacrum) Pulmonary: Denies: Dyspnea, Cough Cardiovascular: Denies: Chest Pain, Palpitations, Lt Headedness Gastrointestinal: Denies: Nausea, Vomiting, Abdominal Pain, Diarrhea, Constip ation Neurological: Reports: Weakness Objective Physical Examination General Exam: Positive: Alert, Cooperative, No Acute Distress Eye Exam: Positive: Conjunctiva & lids normal ENT Exam: Positive: Mucous membr. moist/pink Chest Exam: Positive: Diminished; Negative: Rales, Rhonchi, Wheezing Heart Exam: Positive: Normal S1, Normal S2; Negative: Gallops, Murmurs, Rubs Abdomen Exam: Positive: Normal bowel sounds, Soft; Negative: Tenderness, Hepatospenomegaly Extremity Exam: Positive: Edema; Negative: Clubbing, Cyanosis Skin Exam: Positive: Breakdown (extensive breakdown but without pus, in inguinal folds b/l, right medial aspect of LE, sacrum with tunneling tract, no drainage, pannus folds show signs of skin breakdown of abdomen) Psych Exam: Positive: Oriented x 3 Assessment /Plan Assessment 1. Sepsis 2/2 RLE cellulitis -resolved - Wound cx strep/proteus/cornybacterium, staph, MRSA + -Seen by ID. s/p Vanco/levaquin-d/c, completed course, s/p fluconazole -WBC 8.3 today, afebrile -blood cx - after 5 days 2. Sacral decub with dermatitis - - stage 2 that has been noted to be on admission - Wound care - Dr. Marte has spoken to Dr. Bowling with no surgical intervention recommended - Pt advised to cooperate with turning/rolling - PT consulted and continues to work with patient, patient does not want sub- acute rehab 3. DANIELE on CKD - - Cr 1.59 today, stable -c/w avoidance of nephrotoxins 4. History of systolic and diastolic -appears compensated 5. History of moderate pulmonary hypertension -will need outpatient follow-up 6. Morbid obesity -complicated care 7. History of hypothyroidism -c/w Synthroid 8. History of CVA -c/w aspirin and statin 9. History of chronic back pain -stable 10. Gait dysfunction secondary to morbid obesity, and deconditioning - Physical therapy on board. DVT prophy: Heparin subcutaneous Overall prognosis guarded. Plan/VTE VTE Prophylaxis Ordered?: Yes VS, I&O, 24H, Fishbone Vital Signs/I&O Vital Signs Date Time Temp Pulse Resp B/P (MAP) Pulse Ox O2 Delivery O2 Flow Rate FiO2 07/09/18 07:23 16 07/09/18 06:00 97.7 79 95/56 (69) 94 Room Air I&O- Last 24 Hours up to 6 AM 07/09/18 06:00 Intake Total 390 ml Output Total 50 ml Balance 340 ml Laboratory Data 24H LABS Laboratory Tests 2 07/09/18 05:35: Immature Granulocyte % (Auto) 0.5, White Blood Count 8.3, Red Blood Count 4.18, Hemoglobin 10.4L, Hematocrit 34.0L, Mean Corpuscular Volume 81.3, Mean Corpuscular Hemoglobin 24.9L, Mean Corpuscular Hemoglobin Concent 30.6L, Red Cell Distribution Width 19.4H, Platelet Count 380, Neutrophils (%) (Auto) 63.8, Lymphocytes (%) (Auto) 16.6L, Monocytes (%) (Auto) 11.5H, Eosinophils (%) (Auto) 6.4H, Basophils (%) (Auto) 1.2H, Neutrophils # (Auto) 5.3, Lymphocytes # (Auto) 1.4L, Monocytes # (Auto) 1.0H, Eosinophils # (Auto) 0.5, Basophils # (Auto) 0.1, Nucleated Red Blood Cells % (auto) 0.0, Anion Gap 10, Glomerular Filtration Rate 33.3, Blood Urea Nitrogen 14, Creatinine 1.59H, Sodium Level 138, Potassium Level 4.0, Chloride Level 107, Carbon Dioxide Level 21, Calcium Level 9.5 CBC/BMP Laboratory Tests 07/09/18 05:35 Red Blood Count 4.18, Mean Corpuscular Volume 81.3, Mean Corpuscular Hemoglobin 24.9 L, Mean Corpuscular Hemoglobin Concent 30.6 L, Red Cell Distribution Width 19.4 H, Neutrophils (%) (Auto) 63.8, Lymphocytes (%) (Auto) 16.6 L, Monocytes (%) (Auto) 11.5 H, Eosinophils (%) (Auto) 6.4 H, Basophils (%) (Auto) 1.2 H, Neutrophils # (Auto) 5.3, Lymphocytes # (Auto) 1.4 L, Monocytes # (Auto) 1.0 H, Eosinophils # (Auto) 0.5, Basophils # (Auto) 0.1, Calcium Level 9.5 GME ATTESTATION GME ATTESTATION My faculty preceptor for this patient encounter was physically present during the encounter and was fully available. All aspects of the patient interview, examination, medical decision making process, and medical care plan development were reviewed and approved by the faculty preceptor. The faculty preceptor is aware and concurs with the plan as stated in the body of this note and will attest to such by his/her cosignature. FANTASMA ALBA DO Jul 09, 2018 14:34
[2018-07-09] MEDS: LEVOTHYROXINE 125MCG TABLET (0.125MG) PO SCH (20:45)
[2018-07-09 22:00] VITALS: BP 97/56
[2018-07-10] MEDS: HEPARIN SOD (PORCINE) 5000 UNITS/ML VIAL SC SCH ×3 (05:06→20:26)
[2018-07-10 06:00] VITALS: BP 96/55
[2018-07-10] MEDS: SENOKOT S TAB PO SCH ×2 (09:00→20:24)
[2018-07-10] MEDS: LACTULOSE 20 GM/30 ML SYRUP UD PO SCH ×4 (09:00→20:23)
[2018-07-10 09:22] LABS: HEMATOCRIT 33.2 % (36.0-47.0); HEMOGLOBIN 10.4 g/dl (12.0-15.5); MEAN CORPUSCULAR HEMOGLOBIN 25.2 pg (27.0-33.0); MEAN CORPUSCULAR HGB CONC 31.3 g/dl (32.0-36.5); MEAN CORPUSCULAR VOLUME 80.4 fl (80.0-96.0); PLATELET COUNT, AUTOMATED 401 10^3/uL (150-450); RED BLOOD COUNT 4.13 10^6/uL (4.00-5.40)
[2018-07-10] MEDS: ROSUVASTATIN 10 MG TAB (CRESTOR) PO SCH (09:29)
[2018-07-10] MEDS: FERROUS SULFATE 325MG TAB PO SCH (09:29)
[2018-07-10] MEDS: ASPIRIN 81 MG ENTERIC TAB PO SCH (09:29)
[2018-07-10] MEDS: LACTOBACILLUS ACIDOPHILUS CAP (BACID) PO SCH ×3 (09:30→18:30)
[2018-07-10] MEDS: NYSTATIN 100,000 UNITS/GM TOPICAL PWD 15 GM TOP SCH ×2 (09:30→20:25)
[2018-07-10 09:54] LABS: C REACTIVE PROTEIN QUANTITATIV 14.4 MG/DL (0.00-0.30); CALCIUM LEVEL 9.3 MG/DL (8.8-10.2); CREATININE FOR GFR 1.72 MG/DL (0.55-1.30); GLOMERULAR FILTRATION RATE 30.4 (>32); POTASSIUM SERUM 4.2 MEQ/L (3.5-5.1)
[2018-07-10 14:00] VITALS: BP 98/54
[2018-07-10] MEDS: ONDANSETRON 4MG/2ML VIAL (J2405) IV PRN (14:10)
--- NOTE | 2018-07-10 14:41 | IPNPDOC ---
Subjective Date Seen The patient was seen on 07/10/18. Subjective Chief Complaint/HPI . General: Denies: Chills, Night Sweats Pulmonary: Denies: Dyspnea, Cough Cardiovascular: Denies: Chest Pain, Palpitations Gastrointestinal: Reports: Vomiting; Denies: Nausea, Diarrhea Neurological: Reports: Weakness Objective Physical Examination General Exam: Positive: Alert, Cooperative, No Acute Distress Eye Exam: Positive: Conjunctiva & lids normal ENT Exam: Positive: Mucous membr. moist/pink Chest Exam: Positive: Diminished; Negative: Rales, Rhonchi, Wheezing Heart Exam: Positive: Normal S1, Normal S2; Negative: Gallops, Murmurs, Rubs Abdomen Exam: Positive: Normal bowel sounds, Soft; Negative: Tenderness, Hepatospenomegaly Extremity Exam: Positive: Edema; Negative: Clubbing, Cyanosis Skin Exam: Positive: Breakdown (B/L LE shows healing areas of cellulitis, right foot is wrapped, there is no pus or blood exudation, swelling has improved) Psych Exam: Positive: Oriented x 3 Assessment /Plan Assessment 1. Sepsis 2/2 RLE cellulitis -resolved - Wound cx strep/proteus/cornybacterium, staph, MRSA + -Seen by ID. s/p Vanco/levaquin-d/c, completed course, s/p fluconazole -WBC 10 today, afebrile -blood cx - after 5 days 2. Sacral decub with dermatitis - - stage 2 that has been noted to be on admission - continue with wound care - Dr. Marte has spoken to Dr. Bowling with no surgical intervention recommended - Pt advised to cooperate with turning/rolling - PT consulted and continues to work with patient, patient does not want sub- acute rehab, patient is currently max assist as per PT notes 3. Nausea and associated vomiting episode -patient had one episode yesterday where she vomited up her food, she states she is only really able to tolerate yogurt, doesn't have abdominal pain and doesn't complain of of food getting lodged in throat -will order cupola man consult as patient states she is very particular about what she can eat 4. DANIELE on CKD - - Cr 1.72 today, stable -c/w avoidance of nephrotoxins 5. History of systolic and diastolic -appears compensated 6. History of moderate pulmonary hypertension -will need outpatient follow-up 7. Morbid obesity -complicated care 8. History of hypothyroidism -c/w Synthroid 9. History of CVA -c/w aspirin and statin 10. History of chronic back pain -stable 11. Gait dysfunction secondary to morbid obesity, and deconditioning - Physical therapy on board. DVT prophy: Heparin subcutaneous Overall prognosis guarded. Plan/VTE VTE Prophylaxis Ordered?: Yes VS, I&O, 24H, Fishbone Vital Signs/I&O Vital Signs Date Time Temp Pulse Resp B/P (MAP) Pulse Ox O2 Delivery O2 Flow Rate FiO2 07/10/18 06:00 96.8 76 16 96/55 (69) 94 Room Air I&O- Last 24 Hours up to 6 AM 07/10/18 06:00 Intake Total 810 ml Output Total 550 ml Balance 260 ml Laboratory Data 24H LABS Laboratory Tests 2 07/10/18 09:10: Nucleated Red Blood Cells % (auto) 0.0, Anion Gap 11, Glomerular Filtration Rate 30.4L, Blood Urea Nitrogen 14, Creatinine 1.72H, Sodium Level 137, Potassium Level 4.2, Chloride Level 105, Carbon Dioxide Level 21, Calcium Level 9.3, C- Reactive Protein, Quantitative 14.40H CBC/BMP Laboratory Tests 07/10/18 09:10 Red Blood Count 4.13, Mean Corpuscular Volume 80.4, Mean Corpuscular Hemoglobin 25.2 L, Mean Corpuscular Hemoglobin Concent 31.3 L, Red Cell Distribution Width 19.5 H, Calcium Level 9.3 GME ATTESTATION GME ATTESTATION My faculty preceptor for this patient encounter was physically present during the encounter and was fully available. All aspects of the patient interview, examination, medical decision making process, and medical care plan development were reviewed and approved by the faculty preceptor. The faculty preceptor is aware and concurs with the plan as stated in the body of this note and will attest to such by his/her cosignature. FANTASMA ALBA DO Jul 10, 2018 14:41
[2018-07-10] MEDS: PERCOCET 5MG/325MG TAB PO PRN (15:55)
[2018-07-10] MEDS: LEVOTHYROXINE 125MCG TABLET (0.125MG) PO SCH (20:24)
[2018-07-10 22:00] VITALS: BP 97/47
[2018-07-11] MEDS: PERCOCET 5MG/325MG TAB PO PRN ×4 (01:19→22:31)
[2018-07-11] MEDS: HEPARIN SOD (PORCINE) 5000 UNITS/ML VIAL SC SCH ×3 (05:09→20:23)
[2018-07-11 05:48] LABS: BASO # 0.1 10^3/uL (0.0-0.2); BASO % 1.2 % (0.0-1.0); EOS # 0.3 10^3/uL (0.0-0.50); EOS % 3.3 % (0.0-3.0); HEMOGLOBIN 9.5 g/dl (12.0-15.5); LYMPH # 1.4 10^3/uL (1.5-4.5); LYMPH % 15.3 % (24.0-44.0); MEAN CORPUSCULAR HEMOGLOBIN 24.8 pg (27.0-33.0); MEAN CORPUSCULAR HGB CONC 31.7 g/dl (32.0-36.5); MEAN CORPUSCULAR VOLUME 78.3 fl (80.0-96.0); MONO # 1.4 10^3/uL (0.0-0.8); MONO % 15.9 % (0.0-5.0); NEUTROPHILS # 5.7 10^3/uL (1.8-7.7); NEUTROPHILS % 63.9 % (36.0-66.0); PLATELET COUNT, AUTOMATED 391 10^3/uL (150-450); RED BLOOD COUNT 3.83 10^6/uL (4.00-5.40)
[2018-07-11 06:00] VITALS: BP 108/51
[2018-07-11 06:15] LABS: CALCIUM LEVEL 9.1 MG/DL (8.8-10.2); CREATININE FOR GFR 1.71 MG/DL (0.55-1.30); GLOMERULAR FILTRATION RATE 30.6 (>32); MAGNESIUM LEVEL 2.1 MG/DL (1.8-2.4); POTASSIUM SERUM 4.1 MEQ/L (3.5-5.1)
[2018-07-11 08:03] LABS: C REACTIVE PROTEIN QUANTITATIV 15.5 MG/DL (0.00-0.30)
[2018-07-11] MEDS: SENOKOT S TAB PO SCH ×2 (09:00→19:38)
[2018-07-11] MEDS: LACTULOSE 20 GM/30 ML SYRUP UD PO SCH ×3 (09:00→19:39)
[2018-07-11] MEDS: ASPIRIN 81 MG ENTERIC TAB PO SCH (09:10)
[2018-07-11] MEDS: FERROUS SULFATE 325MG TAB PO SCH (09:10)
[2018-07-11] MEDS: LACTOBACILLUS ACIDOPHILUS CAP (BACID) PO SCH ×3 (09:10→17:16)
[2018-07-11] MEDS: ROSUVASTATIN 10 MG TAB (CRESTOR) PO SCH (09:10)
[2018-07-11] MEDS: NYSTATIN 100,000 UNITS/GM TOPICAL PWD 15 GM TOP SCH ×2 (09:12→20:24)
--- NOTE | 2018-07-11 11:40 | IPNPDOC ---
Text Note Date of Service The patient was seen on 07/11/18. NOTE Subjective:No acute changes overnight. Objective: Vitals: (see below) General: No acute distress, laying comfortably in bed. HEENT: Moist mucous membranes. Neck: No JVD or lymphadenopathy Cardiac: RRR, No murmurs Pulm: Clear to auscultation b/l. No wheezing, rhonchi Abd: NT/ND + BS. Obese. Ext: Trace to 1+ edema BLE. No cyanosis. Chronic LE changes. No active infectio n. Distal pulses intact. Labs (see below) Assessment/Plan 1. RLE cellulitis. S/p sepsis. Wound cx strep/proteus/cornybacterium, staph, MRSA +. Seen by ID. s/p Vanco/levaquin. s/p fluconazole. Given rise of CRP, will restart levaquin, reimage foot 2. Sacral decub with dermatitis - stage 2 that has been noted to be on admission. Wound care. Dr. Marte has spoken to Dr. Bowling with no surgical in tervention recommended. Pt advised to cooperate with turning/rolling. PT consulted. 3. DANIELE on CKD - Cr improved. Avoid nephrotoxins. 4. History of systolic and diastolic. Compensated . 5. History of moderate pulmonary hypertension on need outpatient follow-up 6. Morbid obesity complicated care 7. History of hypothyroidism on Synthroid 8. History of CVA on aspirin and statin 9. History of chronic back pain 10. Gait dysfunction secondary to morbid obesity, and deconditioning. Physical therapy on board. DVT prophy: Heparin subcutaneous Overall prognosis guarded. VS,Fishbone, I+O VS, Fishbone, I+O Laboratory Tests 07/11/18 05:27 Red Blood Count 3.83 L, Mean Corpuscular Volume 78.3 L, Mean Corpuscular Hemoglobin 24.8 L, Mean Corpuscular Hemoglobin Concent 31.7 L, Red Cell Distribution Width 19.2 H, Neutrophils (%) (Auto) 63.9, Lymphocytes (%) (Auto) 15.3 L, Monocytes (%) (Auto) 15.9 H, Eosinophils (%) (Auto) 3.3 H, Basophils (%) (Auto) 1.2 H, Neutrophils # (Auto) 5.7, Lymphocytes # (Auto) 1.4 L, Monocytes # (Auto) 1.4 H, Eosinophils # (Auto) 0.3, Basophils # (Auto) 0.1, Calcium Level 9.1 Vital Signs Date Time Temp Pulse Resp B/P (MAP) Pulse Ox O2 Delivery O2 Flow Rate FiO2 07/11/18 09:41 18 Room Air 07/11/18 06:00 97.7 58 108/51 (70) 92 07/10/18 16:25 15.0 50 I&O- Last 24 Hours up to 6 AM 07/11/18 06:00 Intake Total 1050 ml Output Total 545 ml Balance 505 ml MCKENNA CLARK MD Jul 11, 2018 11:40
[2018-07-11] MEDS: LevoFLOXacin 250 MG TABLET PO SCH (12:24)
--- NOTE | 2018-07-11 13:05 | REP ---
Clinical: Pain. Technique: Portable AP, lateral, bilateral oblique views of the right foot. Findings: Osteopenia and age-related degenerative changes are appreciated. No obvious acute fracture or dislocation. No obvious subcutaneous emphysema. Lateral view best demonstrates moderate amount of soft tissue swelling over the metatarsal region. Small calcaneal heal spur. Impression: Osteopenia and degenerative changes. Moderate swelling. Electronically Signed by Ethan Leone MD 07/11/2018 12:56 P
[2018-07-11] MEDS: LEVOTHYROXINE 125MCG TABLET (0.125MG) PO SCH (20:23)
[2018-07-11] MEDS: hydrOXYzine 10 MG TAB PO PRN (20:24)
[2018-07-11 22:00] VITALS: BP 92/54
[2018-07-12] MEDS: HEPARIN SOD (PORCINE) 5000 UNITS/ML VIAL SC SCH ×3 (05:10→20:48)
[2018-07-12 05:46] LABS: BASO # 0.1 10^3/uL (0.0-0.2); BASO % 2.1 % (0.0-1.0); EOS # 0.5 10^3/uL (0.0-0.50); EOS % 7.9 % (0.0-3.0); HEMATOCRIT 29.8 % (36.0-47.0); HEMOGLOBIN 9.4 g/dl (12.0-15.5); LYMPH # 1.7 10^3/uL (1.5-4.5); LYMPH % 25.2 % (24.0-44.0); MEAN CORPUSCULAR HGB CONC 31.5 g/dl (32.0-36.5); MEAN CORPUSCULAR VOLUME 79.3 fl (80.0-96.0); MONO # 1.2 10^3/uL (0.0-0.8); NEUTROPHILS # 3.1 10^3/uL (1.8-7.7); NEUTROPHILS % 46.5 % (36.0-66.0); PLATELET COUNT, AUTOMATED 403 10^3/uL (150-450); RED BLOOD COUNT 3.76 10^6/uL (4.00-5.40); WHITE BLOOD COUNT 6.7 10^3/uL (4.0-10.0)
[2018-07-12 06:00] VITALS: BP 110/52
[2018-07-12 06:05] LABS: CALCIUM LEVEL 9.1 MG/DL (8.8-10.2); CREATININE FOR GFR 1.81 MG/DL (0.55-1.30); GLOMERULAR FILTRATION RATE 28.6 (>32); MAGNESIUM LEVEL 2.2 MG/DL (1.8-2.4); POTASSIUM SERUM 4.4 MEQ/L (3.5-5.1)
[2018-07-12] MEDS: ASPIRIN 81 MG ENTERIC TAB PO SCH (08:46)
[2018-07-12] MEDS: LACTOBACILLUS ACIDOPHILUS CAP (BACID) PO SCH ×3 (08:46→18:20)
[2018-07-12] MEDS: ROSUVASTATIN 10 MG TAB (CRESTOR) PO SCH (08:46)
[2018-07-12] MEDS: FERROUS SULFATE 325MG TAB PO SCH (08:46)
[2018-07-12] MEDS: SENOKOT S TAB PO SCH ×2 (08:48→20:49)
[2018-07-12] MEDS: LACTULOSE 20 GM/30 ML SYRUP UD PO SCH ×4 (08:48→21:00)
[2018-07-12] MEDS: PERCOCET 5MG/325MG TAB PO PRN ×2 (08:48→20:48)
[2018-07-12] MEDS: NYSTATIN 100,000 UNITS/GM TOPICAL PWD 15 GM TOP SCH ×2 (08:49→20:48)
[2018-07-12 08:52] LABS: C REACTIVE PROTEIN QUANTITATIV 15.9 MG/DL (0.00-0.30)
[2018-07-12 14:00] VITALS: BP 106/53
--- NOTE | 2018-07-12 15:27 | IPNPDOC ---
Subjective Date Seen The patient was seen on 07/12/18. Subjective Chief Complaint/HPI . General: Denies: Chills, Night Sweats Constitutional: Reports: Weakness Pulmonary: Denies: Dyspnea, Cough Cardiovascular: Denies: Chest Pain, Palpitations Gastrointestinal: Denies: Nausea, Vomiting, Abdominal Pain, Diarrhea, Constip ation Musculoskeletal: Reports: Leg Pain (left LE) Neurological: Reports: Weakness Objective Physical Examination General Exam: Positive: Alert, Cooperative, No Acute Distress Eye Exam: Positive: Conjunctiva & lids normal ENT Exam: Positive: Mucous membr. moist/pink Chest Exam: Positive: Diminished; Negative: Rales, Rhonchi, Wheezing Heart Exam: Positive: Normal S1, Normal S2; Negative: Gallops, Murmurs, Rubs Abdomen Exam: Positive: Normal bowel sounds, Soft; Negative: Tenderness, Hepatospenomegaly Extremity Exam: Positive: Edema; Negative: Clubbing, Cyanosis Skin Exam: Positive: Breakdown (B/L LE shows healing areas of cellulitis, right foot is wrapped, there is no pus or blood exudation, swelling has improved but does appear a bit more erythematous of LLE today on exam) Psych Exam: Positive: Oriented x 3 Assessment /Plan Assessment 1. Sepsis 2/2 RLE cellulitis -resolved, however one day ago CRP did elevated, levaquin has been res-started, left lower extremity does look a bit more red today, can consider MRI in AM of LLE to rule out osteomyelitis if swelling/labs do not improve in AM -Left foot x-ray one day ago demonstrated osteopenia and degenerative changes - Wound cx strep/proteus/cornybacterium, staph, MRSA + -Seen by ID. s/p Vanco/levaquin-d/c, completed course initially, s/p fluconazole -WBC 6.7 today, afebrile -blood cx - after 5 days -CRP relatively unchanged from one day ago, re-check in AM 2. Sacral decub with dermatitis - - stage 2 that has been noted to be on admission - continue with wound care - Dr. Marte has spoken to Dr. Bowling with no surgical intervention recommended - Pt advised to cooperate with turning/rolling - PT consulted and continues to work with patient, patient does not want sub- acute rehab, patient is currently max assist as per PT notes 3. Nausea and associated vomiting episode -patient had one episode two days ago where she vomited up her food, she states she is only really able to tolerate yogurt, doesn't have abdominal pain and doesn't complain of of food getting lodged in throat -will order field operations technician consult as patient states she is very particular about what she can eat 4. DANIELE on CKD - - Cr 1.81 today, minimal elevation from one day ago, continue to monitor -c/w avoidance of nephrotoxins 5. History of systolic and diastolic -appears compensated 6. History of moderate pulmonary hypertension -will need outpatient follow-up 7. Morbid obesity -complicated care 8. History of hypothyroidism -c/w Synthroid 9. History of CVA -c/w aspirin and statin 10. History of chronic back pain -stable 11. Gait dysfunction secondary to morbid obesity, and deconditioning - Physical therapy on board. DVT prophy: Heparin subcutaneous Overall prognosis guarded. Plan/VTE VTE Prophylaxis Ordered?: Yes VS, I&O, 24H, Fishbone Vital Signs/I&O Vital Signs Date Time Temp Pulse Resp B/P (MAP) Pulse Ox O2 Delivery O2 Flow Rate FiO2 07/12/18 08:48 16 07/12/18 06:00 98.6 78 110/52 (71) 94 Room Air 07/10/18 16:25 15.0 50 I&O- Last 24 Hours up to 6 AM 07/12/18 06:00 Intake Total 420 ml Output Total 640 ml Balance -220 ml Laboratory Data 24H LABS Laboratory Tests 2 07/12/18 05:25: Immature Granulocyte % (Auto) 0.3, White Blood Count 6.7, Red Blood Count 3.76L, Hemoglobin 9.4L, Hematocrit 29.8L, Mean Corpuscular Volume 79.3L, Mean Corpuscular Hemoglobin 25.0L, Mean Corpuscular Hemoglobin Concent 31.5L, Red Cell Distribution Width 19.2H, Platelet Count 403, Neutrophils (%) (Auto) 46.5, Lymphocytes (%) (Auto) 25.2, Monocytes (%) (Auto) 18.0H, Eosinophils (%) (Auto) 7.9H, Basophils (%) (Auto) 2.1H, Neutrophils # (Auto) 3.1, Lymphocytes # (Auto) 1.7, Monocytes # (Auto) 1.2H, Eosinophils # (Auto) 0.5, Basophils # (Auto) 0.1, Nucleated Red Blood Cells % (auto) 0.0, Anion Gap 5L, Glomerular Filtration Rate 28.6L, Blood Urea Nitrogen 17, Creatinine 1.81H, Sodium Level 138, Potassium Level 4.4, Chloride Level 107, Carbon Dioxide Level 26, Calcium Level 9.1, Magnesium Level 2.2, C-Reactive Protein, Quantitative 15.90H CBC/BMP Laboratory Tests 07/12/18 05:25 Red Blood Count 3.76 L, Mean Corpuscular Volume 79.3 L, Mean Corpuscular Hemoglobin 25.0 L, Mean Corpuscular Hemoglobin Concent 31.5 L, Red Cell Distribution Width 19.2 H, Neutrophils (%) (Auto) 46.5, Lymphocytes (%) (Auto) 25.2, Monocytes (%) (Auto) 18.0 H, Eosinophils (%) (Auto) 7.9 H, Basophils (%) (Auto) 2.1 H, Neutrophils # (Auto) 3.1, Lymphocytes # (Auto) 1.7, Monocytes # (Auto) 1.2 H, Eosinophils # (Auto) 0.5, Basophils # (Auto) 0.1, Calcium Level 9.1 GME ATTESTATION GME ATTESTATION My faculty preceptor for this patient encounter was physically present during t he encounter and was fully available. All aspects of the patient interview, examination, medical decision making process, and medical care plan development were reviewed and approved by the faculty preceptor. The faculty preceptor is aware and concurs with the plan as stated in the body of this note and will attest to such by his/her cosignature. FANTASMA ALBA DO Jul 12, 2018 15:27
[2018-07-12] MEDS: LEVOTHYROXINE 125MCG TABLET (0.125MG) PO SCH (20:46)
[2018-07-12 22:00] VITALS: BP 142/82
[2018-07-13] MEDS: HEPARIN SOD (PORCINE) 5000 UNITS/ML VIAL SC SCH ×3 (05:48→21:12)
[2018-07-13] MEDS: LevoFLOXacin 250 MG TABLET PO SCH (05:48)
[2018-07-13 06:21] LABS: BASO # 0.1 10^3/uL (0.0-0.2); BASO % 1.1 % (0.0-1.0); EOS # 0.3 10^3/uL (0.0-0.50); EOS % 2.7 % (0.0-3.0); HEMATOCRIT 32.6 % (36.0-47.0); LYMPH # 1.4 10^3/uL (1.5-4.5); LYMPH % 13.8 % (24.0-44.0); MEAN CORPUSCULAR HEMOGLOBIN 24.6 pg (27.0-33.0); MEAN CORPUSCULAR HGB CONC 30.7 g/dl (32.0-36.5); MEAN CORPUSCULAR VOLUME 80.3 fl (80.0-96.0); MONO # 1.6 10^3/uL (0.0-0.8); NEUTROPHILS # 6.5 10^3/uL (1.8-7.7); NEUTROPHILS % 66.1 % (36.0-66.0); PLATELET COUNT, AUTOMATED 439 10^3/uL (150-450); RED BLOOD COUNT 4.06 10^6/uL (4.00-5.40); WHITE BLOOD COUNT 9.9 10^3/uL (4.0-10.0)
[2018-07-13 06:38] LABS: CREATININE FOR GFR 1.97 MG/DL (0.55-1.30); MAGNESIUM LEVEL 2.2 MG/DL (1.8-2.4); POTASSIUM SERUM 4.4 MEQ/L (3.5-5.1)
[2018-07-13 08:05] LABS: C REACTIVE PROTEIN QUANTITATIV 15.7 MG/DL (0.00-0.30)
[2018-07-13] MEDS: SENOKOT S TAB PO SCH ×2 (09:00→21:00)
[2018-07-13] MEDS: LACTULOSE 20 GM/30 ML SYRUP UD PO SCH ×3 (09:00→21:00)
[2018-07-13] MEDS: ASPIRIN 81 MG ENTERIC TAB PO SCH (09:21)
[2018-07-13] MEDS: LACTOBACILLUS ACIDOPHILUS CAP (BACID) PO SCH ×3 (09:22→17:49)
[2018-07-13] MEDS: ROSUVASTATIN 10 MG TAB (CRESTOR) PO SCH (09:22)
[2018-07-13] MEDS: FERROUS SULFATE 325MG TAB PO SCH (09:22)
[2018-07-13] MEDS: NYSTATIN 100,000 UNITS/GM TOPICAL PWD 15 GM TOP SCH ×2 (09:23→21:00)
--- NOTE | 2018-07-13 12:01 | IPNPDOC ---
Subjective Date Seen The patient was seen on 07/13/18. Subjective Chief Complaint/HPI . General: Reports: Fatigue; Denies: Chills, Night Sweats Pulmonary: Denies: Dyspnea, Cough Cardiovascular: Reports: Edema (b/l LE ); Denies: Chest Pain, Palpitations, Lt Headedness Gastrointestinal: Denies: Nausea, Vomiting, Abdominal Pain, Diarrhea Psych: Reports: Mood Normal Objective Physical Examination General Exam: Positive: Alert, Cooperative, No Acute Distress Eye Exam: Positive: Conjunctiva & lids normal ENT Exam: Positive: Mucous membr. moist/pink Chest Exam: Positive: Diminished; Negative: Rales, Rhonchi, Wheezing Heart Exam: Positive: Normal S1, Normal S2; Negative: Gallops, Murmurs, Rubs Abdomen Exam: Positive: Normal bowel sounds, Soft; Negative: Tenderness, Hepatospenomegaly Extremity Exam: Positive: Edema; Negative: Clubbing, Cyanosis Skin Exam: Positive: Breakdown (B/L LE shows healing areas of cellulitis, right foot is wrapped, there is no pus or blood exudation, left LE seems improved ) Psych Exam: Positive: Oriented x 3 Assessment /Plan Assessment 1. Sepsis 2/2 RLE cellulitis -resolved, however one day ago CRP did elevated, Levaquin has been res-started, left lower extremity does look a bit more red today, can consider MRI in AM of LLE to rule out osteomyelitis if swelling/labs do not improve in AM -Left foot x-ray one day ago demonstrated osteopenia and degenerative changes - Wound cx strep/proteus/cornybacterium, staph, MRSA + -Seen by ID. s/p Vanco/levaquin-d/c, completed course initially, s/p fluconazole -WBC 9.9 today, afebrile -blood cx - after 5 days -CRP relatively unchanged from one day ago, re-check in AM 2. Sacral decub with dermatitis - - stage 2 that has been noted to be on admission - continue with wound care - Dr. Marte has spoken to Dr. Bowling with no surgical intervention recommended - Pt advised to cooperate with turning/rolling - PT consulted and continues to work with patient, patient does not want sub- acute rehab, patient is currently max assist as per PT notes 3. Nausea and associated vomiting episode -patient had one episode three days ago where she vomited up her food, she states she is only really able to tolerate yogurt, doesn't have abdominal pain and doesn't complain of of food getting lodged in throat-patient denies further vomiting episodes -will order stage settings painter consult as patient states she is very particular about what she can eat 4. DANIELE on CKD - - Cr 1.97 today, minimal elevation from one day ago, continue to monitor -c/w avoidance of nephrotoxins 5. History of systolic and diastolic -appears compensated 6. History of moderate pulmonary hypertension -will need outpatient follow-up 7. Morbid obesity -complicated care 8. History of hypothyroidism -c/w Synthroid 9. History of CVA -c/w aspirin and statin 10. History of chronic back pain -stable 11. Gait dysfunction secondary to morbid obesity, and deconditioning - Physical therapy on board -PFS to see patient tomorrow once back in house from holiday, patients plan of care needs to be addressed with social issues and discharge DVT prophy: Heparin subcutaneous Overall prognosis guarded. Plan/VTE VTE Prophylaxis Ordered?: Yes VS, I&O, 24H, Fishbone Vital Signs/I&O Vital Signs Date Time Temp Pulse Resp B/P (MAP) Pulse Ox O2 Delivery O2 Flow Rate FiO2 07/12/18 22:00 96.1 102 18 142/82 (102) 96 Room Air 07/10/18 16:25 15.0 50 I&O- Last 24 Hours up to 6 AM 07/13/18 06:00 Intake Total 360 ml Output Total 450 ml Balance -90 ml Laboratory Data 24H LABS Laboratory Tests 2 07/13/18 05:46: Immature Granulocyte % (Auto) 0.3, White Blood Count 9.9, Red Blood Count 4.06, Hemoglobin 10.0L, Hematocrit 32.6L, Mean Corpuscular Volume 80.3, Mean Corpuscular Hemoglobin 24.6L, Mean Corpuscular Hemoglobin Concent 30.7L, Red Cell Distribution Width 19.4H, Platelet Count 439, Neutrophils (%) (Auto) 66.1H, Lymphocytes (%) (Auto) 13.8L, Monocytes (%) (Auto) 16.0H, Eosinophils (%) (Auto) 2.7, Basophils (%) (Auto) 1.1H, Neutrophils # (Auto) 6.5, Lymphocytes # (Auto) 1.4L, Monocytes # (Auto) 1.6H, Eosinophils # (Auto) 0.3, Basophils # (Auto) 0.1, Nucleated Red Blood Cells % (auto) 0.0, Anion Gap 9, Glomerular Filtration Rate 26.0L, Blood Urea Nitrogen 16, Creatinine 1.97H, Sodium Level 138, Potassium Level 4.4, Chloride Level 103, Carbon Dioxide Level 26, Calcium Level 9.0, Magnesium Level 2.2, C-Reactive Protein, Quantitative 15.70H CBC/BMP Laboratory Tests 07/13/18 05:46 Red Blood Count 4.06, Mean Corpuscular Volume 80.3, Mean Corpuscular Hemoglobin 24.6 L, Mean Corpuscular Hemoglobin Concent 30.7 L, Red Cell Distribution Width 19.4 H, Neutrophils (%) (Auto) 66.1 H, Lymphocytes (%) (Auto) 13.8 L, Monocytes (%) (Auto) 16.0 H, Eosinophils (%) (Auto) 2.7, Basophils (%) (Auto) 1.1 H, Neutrophils # (Auto) 6.5, Lymphocytes # (Auto) 1.4 L, Monocytes # (Auto) 1.6 H, Eosinophils # (Auto) 0.3, Basophils # (Auto) 0.1, Calcium Level 9.0 GME ATTESTATION GME ATTESTATION My faculty preceptor for this patient encounter was physically present during the encounter and was fully available. All aspects of the patient interview, examination, medical decision making process, and medical care plan development were reviewed and approved by the faculty preceptor. The faculty preceptor is aware and concurs with the plan as stated in the body of this note and will attest to such by his/her cosignature. FANTASMA ALBA DO Jul 13, 2018 12:00
[2018-07-13] MEDS: PERCOCET 5MG/325MG TAB PO PRN (13:29)
[2018-07-13 14:00] VITALS: BP 102/60
[2018-07-13] MEDS: LEVOTHYROXINE 125MCG TABLET (0.125MG) PO SCH (21:12)
[2018-07-13] MEDS: hydrOXYzine 10 MG TAB PO PRN (21:12)
[2018-07-13 22:00] VITALS: BP 108/56
[2018-07-14] MEDS: hydrOXYzine 10 MG TAB PO PRN (03:36)
[2018-07-14 05:54] LABS: BASO # 0.1 10^3/uL (0.0-0.2); BASO % 0.9 % (0.0-1.0); EOS # 0.3 10^3/uL (0.0-0.50); EOS % 2.7 % (0.0-3.0); HEMOGLOBIN 9.7 g/dl (12.0-15.5); LYMPH # 1.3 10^3/uL (1.5-4.5); LYMPH % 13.7 % (24.0-44.0); MEAN CORPUSCULAR HEMOGLOBIN 24.8 pg (27.0-33.0); MEAN CORPUSCULAR HGB CONC 31.3 g/dl (32.0-36.5); MEAN CORPUSCULAR VOLUME 79.3 fl (80.0-96.0); MONO # 1.6 10^3/uL (0.0-0.8); MONO % 16.7 % (0.0-5.0); NEUTROPHILS # 6.1 10^3/uL (1.8-7.7); NEUTROPHILS % 65.7 % (36.0-66.0); PLATELET COUNT, AUTOMATED 418 10^3/uL (150-450); RED BLOOD COUNT 3.91 10^6/uL (4.00-5.40); WHITE BLOOD COUNT 9.3 10^3/uL (4.0-10.0)
[2018-07-14 06:00] VITALS: BP 103/55
[2018-07-14] MEDS: HEPARIN SOD (PORCINE) 5000 UNITS/ML VIAL SC SCH ×3 (06:12→21:23)
[2018-07-14 06:23] LABS: CALCIUM LEVEL 9.1 MG/DL (8.8-10.2); CREATININE FOR GFR 1.87 MG/DL (0.55-1.30); GLOMERULAR FILTRATION RATE 27.6 (>32); MAGNESIUM LEVEL 2.1 MG/DL (1.8-2.4); POTASSIUM SERUM 4.2 MEQ/L (3.5-5.1)
[2018-07-14] MEDS: ONDANSETRON 4MG/2ML VIAL (J2405) IV PRN (06:29)
--- NOTE | 2018-07-14 08:53 | IPNPDOC ---
Subjective Date Seen The patient was seen on 07/14/18. Subjective Chief Complaint/HPI . General: Reports: Fatigue; Denies: Chills, Night Sweats, Malaise Constitutional: Reports: Weakness Pulmonary: Denies: Dyspnea, Cough Cardiovascular: Denies: Chest Pain, Palpitations Gastrointestinal: Denies: Nausea, Vomiting Genitourinary: Denies: Dysuria, Frequency Musculoskeletal: Reports: Other Symptoms (b/l LE ache) Neurological: Reports: Weakness Psych: Reports: Mood Normal Objective Physical Examination General Exam: Positive: Alert, Cooperative, No Acute Distress Eye Exam: Positive: Conjunctiva & lids normal ENT Exam: Positive: Mucous membr. moist/pink Chest Exam: Positive: Diminished; Negative: Rales, Rhonchi, Wheezing Heart Exam: Positive: Normal S1, Normal S2; Negative: Gallops, Murmurs, Rubs Abdomen Exam: Positive: Normal bowel sounds, Soft; Negative: Tenderness, Hepatospenomegaly Extremity Exam: Positive: Edema, Other (right toe on has black almost necrotic tissue on medial aspect of first digit, sacral decubitus ulcer at least +2, ch ronic erythematous break down on b/l gluteal folds, no pus appreciated, slight bleeding from area of break down ); Negative: Clubbing, Cyanosis Skin Exam: Positive: Breakdown (B/L LE shows healing areas of cellulitis, right foot is wrapped, there is no pus or blood exudation, left LE seems improved again today) Psych Exam: Positive: Oriented x 3 Assessment /Plan Assessment 1. Sepsis 2/2 RLE cellulitis -right toe has some dark black necrotic appearing tissue today on physical exam -CRP seems to have plateaued, one pending for AM - Levaquin abx, left lower extremity looks improved today, holding MRI of LLE, less concern for osteomyelitis -Left foot x-ray one day ago demonstrated osteopenia and degenerative changes - Wound cx strep/proteus/cornybacterium, staph, MRSA + -Seen by ID. s/p Vanco/Levaquin-d/c, completed course initially, s/p fluconazole -WBC 9.3 today, afebrile -blood cx - after 5 days 2. Sacral decub with dermatitis - -examined today, appears to stage 3, there is no pus but some blood exudation on physical exam, also some break down of b/l superior gluteal folds - stage 2- noted to be on admission - continue with wound care - Dr. Marte had spoken to Dr. Bowling with no surgical intervention recommended-we will reach out to surgery again today to re-evaluate, appreciate their help - Pt advised to cooperate with turning/rolling - PT consulted and continues to work with patient, patient does not want sub- acute rehab, patient is currently max assist as per PT notes 3. Nausea and associated vomiting episode -has good and bad days, feels a bit nauseated today -patient had one episode a few days ago where she vomited up her food, she states she is only really able to tolerate yogurt, doesn't have abdominal pain and doesn't complain of of food getting lodged in throat-patient denies further vomiting episodes -compliance paralegal consult has been performed -c/w Zofran 4. DANIELE on CKD - - Cr 1.87 improved today -continue to monitor -c/w avoidance of nephrotoxins 5. History of systolic and diastolic -appears compensated 6. History of moderate pulmonary hypertension -will need outpatient follow-up 7. Morbid obesity -complicated care 8. History of hypothyroidism -c/w Synthroid 9. History of CVA -c/w aspirin and statin 10. History of chronic back pain -stable 11. Gait dysfunction secondary to morbid obesity, and deconditioning - Physical therapy on board -PFS to see patient today, patients plan of care needs to be addressed with social issues and discharge DVT prophy: Heparin subcutaneous Overall prognosis guarded. Pending PFS consult/plan. Plan/VTE VTE Prophylaxis Ordered?: Yes VS, I&O, 24H, Fishbone Vital Signs/I&O Vital Signs Date Time Temp Pulse Resp B/P (MAP) Pulse Ox O2 Delivery O2 Flow Rate FiO2 07/14/18 06:00 97.7 84 18 103/55 (71) 96 Room Air 07/10/18 16:25 15.0 50 I&O- Last 24 Hours up to 6 AM 07/14/18 06:00 Intake Total 540 ml Output Total 1075 ml Balance -535 ml Laboratory Data 24H LABS Laboratory Tests 2 07/14/18 05:27: Immature Granulocyte % (Auto) 0.3, White Blood Count 9.3, Red Blood Count 3.91L, Hemoglobin 9.7L, Hematocrit 31.0L, Mean Corpuscular Volume 79.3L, Mean Corpuscular Hemoglobin 24.8L, Mean Corpuscular Hemoglobin Concent 31.3L, Red Cell Distribution Width 19.3H, Platelet Count 418, Neutrophils (%) (Auto) 65.7, Lymphocytes (%) (Auto) 13.7L, Monocytes (%) (Auto) 16.7H, Eosinophils (%) (Auto) 2.7, Basophils (%) (Auto) 0.9, Neutrophils # (Auto) 6.1, Lymphocytes # (Auto) 1.3L, Monocytes # (Auto) 1.6H, Eosinophils # (Auto) 0.3, Basophils # (Auto) 0.1, Nucleated Red Blood Cells % (auto) 0.0, Anion Gap 6L, Glomerular Filtration Rate 27.6L, Blood Urea Nitrogen 15, Creatinine 1.87H, Sodium Level 138, Potassium Level 4.2, Chloride Level 105, Carbon Dioxide Level 27, Calcium Level 9.1, Magnesium Level 2.1 CBC/BMP Laboratory Tests 07/14/18 05:27 Red Blood Count 3.91 L, Mean Corpuscular Volume 79.3 L, Mean Corpuscular Hemoglobin 24.8 L, Mean Corpuscular Hemoglobin Concent 31.3 L, Red Cell Distribution Width 19.3 H, Neutrophils (%) (Auto) 65.7, Lymphocytes (%) (Auto) 13.7 L, Monocytes (%) (Auto) 16.7 H, Eosinophils (%) (Auto) 2.7, Basophils (%) (Auto) 0.9, Neutrophils # (Auto) 6.1, Lymphocytes # (Auto) 1.3 L, Monocytes # (Auto) 1.6 H, Eosinophils # (Auto) 0.3, Basophils # (Auto) 0.1, Calcium Level 9.1 GME ATTESTATION GME ATTESTATION My faculty preceptor for this patient encounter was physically present during the encounter and was fully available. All aspects of the patient interview, examination, medical decision making process, and medical care plan development were reviewed and approved by the faculty preceptor. The faculty preceptor is aware and concurs with the plan as stated in the body of this note and will attest to such by his/her cosignature. FANTASMA LABA DO Jul 14, 2018 08:53
[2018-07-14] MEDS: LACTULOSE 20 GM/30 ML SYRUP UD PO SCH ×3 (09:00→21:00)
[2018-07-14] MEDS: SENOKOT S TAB PO SCH ×2 (09:00→21:00)
[2018-07-14] MEDS: FERROUS SULFATE 325MG TAB PO SCH (09:02)
[2018-07-14] MEDS: LACTOBACILLUS ACIDOPHILUS CAP (BACID) PO SCH ×3 (09:02→17:34)
[2018-07-14] MEDS: ASPIRIN 81 MG ENTERIC TAB PO SCH (09:03)
[2018-07-14] MEDS: NYSTATIN 100,000 UNITS/GM TOPICAL PWD 15 GM TOP SCH ×2 (09:03→21:00)
[2018-07-14] MEDS: ROSUVASTATIN 10 MG TAB (CRESTOR) PO SCH (09:03)
[2018-07-14 09:05] LABS: C REACTIVE PROTEIN QUANTITATIV 15.5 MG/DL (0.00-0.30)
[2018-07-14] MEDS: PERCOCET 5MG/325MG TAB PO PRN (12:49)
[2018-07-14 15:00] VITALS: BP 106/56
--- NOTE | 2018-07-14 15:52 | REP ---
Bilateral lower extremity arterial Doppler ultrasound: History: Nonhealing ulcers. Decreased pulses. Findings: Ankle brachial indices could not be accomplished due to pain tolerance. Exam quality is inhibited considerably by this and as a result of discomfort, the patient declined or refused examination distal to the left knee. Triphasic flow waveforms are noted on the right throughout. The proximal posterior tibial artery on the right could not be visualized due to this severe soft tissue edema. On the left: Normal triphasic waveforms are seen from the common femoral artery segment through the distal superficial femoral artery. Severe soft tissue edema is seen on the left as well. Velocity chart right lower extremity arteries: Right CF A 153 cm/S Profunda 121 Proximal SFA 155 Mid SFA 117 Distal SFA 90 Popliteal 47 Proximal AT A 60 Tibioperoneal trunk 59 Proximal COMPUTER GRAPHIC DESIGNER not seen. Distal COMPUTER GRAPHIC DESIGNER 60 Distal AT A 31 Velocity chart left lower extremity arteries: Left CF A 112 cm/S Profunda 61 Proximal SFA 89 Mid SFA 70 Distal SFA 71 Electronically Signed by Manuel Cardenas MD 07/14/2018 03:43 P
[2018-07-14] MEDS: LEVOTHYROXINE 125MCG TABLET (0.125MG) PO SCH (21:24)
[2018-07-14 22:00] VITALS: BP 110/64
[2018-07-15] MEDS: LevoFLOXacin 250 MG TABLET PO SCH (05:52)
[2018-07-15] MEDS: HEPARIN SOD (PORCINE) 5000 UNITS/ML VIAL SC SCH ×3 (05:52→21:41)
[2018-07-15 06:00] VITALS: BP 111/65
[2018-07-15 06:06] LABS: BASO # 0.1 10^3/uL (0.0-0.2); EOS # 0.3 10^3/uL (0.0-0.50); EOS % 4.8 % (0.0-3.0); HEMATOCRIT 31.3 % (36.0-47.0); HEMOGLOBIN 9.9 g/dl (12.0-15.5); LYMPH # 1.7 10^3/uL (1.5-4.5); LYMPH % 23.4 % (24.0-44.0); MEAN CORPUSCULAR HEMOGLOBIN 25.1 pg (27.0-33.0); MEAN CORPUSCULAR HGB CONC 31.6 g/dl (32.0-36.5); MEAN CORPUSCULAR VOLUME 79.4 fl (80.0-96.0); MONO # 1.3 10^3/uL (0.0-0.8); MONO % 17.9 % (0.0-5.0); NEUTROPHILS # 3.8 10^3/uL (1.8-7.7); NEUTROPHILS % 52.6 % (36.0-66.0); PLATELET COUNT, AUTOMATED 423 10^3/uL (150-450); RED BLOOD COUNT 3.94 10^6/uL (4.00-5.40); WHITE BLOOD COUNT 7.2 10^3/uL (4.0-10.0)
[2018-07-15 06:45] LABS: CALCIUM LEVEL 9.1 MG/DL (8.8-10.2); CREATININE FOR GFR 1.68 MG/DL (0.55-1.30); GLOMERULAR FILTRATION RATE 31.2 (>32); MAGNESIUM LEVEL 2.2 MG/DL (1.8-2.4); POTASSIUM SERUM 4.8 MEQ/L (3.5-5.1)
[2018-07-15] MEDS: LACTOBACILLUS ACIDOPHILUS CAP (BACID) PO SCH ×3 (08:53→18:00)
[2018-07-15] MEDS: ASPIRIN 81 MG ENTERIC TAB PO SCH (08:53)
[2018-07-15] MEDS: ROSUVASTATIN 10 MG TAB (CRESTOR) PO SCH (08:53)
[2018-07-15] MEDS: FERROUS SULFATE 325MG TAB PO SCH (08:54)
[2018-07-15] MEDS: NYSTATIN 100,000 UNITS/GM TOPICAL PWD 15 GM TOP SCH ×2 (08:55→20:41)
[2018-07-15] MEDS: LACTULOSE 20 GM/30 ML SYRUP UD PO SCH ×3 (08:58→20:40)
[2018-07-15] MEDS: SENOKOT S TAB PO SCH ×2 (08:58→20:40)
--- NOTE | 2018-07-15 09:34 | IPNPDOC ---
Subjective Date Seen The patient was seen on 07/15/18. Subjective Chief Complaint/HPI . General: Reports: Fatigue, Malaise; Denies: Chills Constitutional: Reports: Weakness Skin: Reports: Lesions (right LE and sacrum), Breakdown Pulmonary: Denies: Dyspnea, Cough Cardiovascular: Denies: Chest Pain, Palpitations Gastrointestinal: Denies: Nausea, Vomiting Musculoskeletal: Reports: Other Symptoms (right LE and sacrum discomfort from wounds ) Neurological: Reports: Weakness Objective Physical Examination General Exam: Positive: Alert, Cooperative, No Acute Distress Eye Exam: Positive: Conjunctiva & lids normal ENT Exam: Positive: Mucous membr. moist/pink Chest Exam: Positive: Diminished; Negative: Rales, Rhonchi, Wheezing Heart Exam: Positive: Normal S1, Normal S2; Negative: Gallops, Murmurs, Rubs Abdomen Exam: Positive: Normal bowel sounds, Soft; Negative: Tenderness, Hepatospenomegaly Extremity Exam: Positive: Edema, Other (right toe on has black almost necrotic tissue on medial aspect of first digit); Negative: Clubbing, Cyanosis Skin Exam: Positive: Breakdown (B/L LE shows healing areas of cellulitis, right foot is open, there is no pus or blood exudation, left LE seems improved again today-right black appearing wound on medial aspect right toe) Psych Exam: Positive: Oriented x 3 Assessment /Plan Assessment 1. Sepsis 2/2 RLE cellulitis -right toe has some dark black necrotic appearing tissue today on physical exam again today, it is open to air -General surgery has seen patient yesterday, appreciate their help, recommend vascular consult, vascular surgery to hopefully see patient today, b/l arterial u/s for arterial flow does not appear to demonstrate PAD although exam was noted to not be of best quality due to edema and patient refusal due to pain during pa rts of exam -will await further recommendations from vascular surgery -CRP seems to have plateaued - Levaquin abx, left lower extremity looks improved today, holding MRI of LLE, less concern for osteomyelitis -Left foot x-ray had demonstrated osteopenia and degenerative changes - Wound cx strep/proteus/cornybacterium, staph, MRSA + -Seen by ID. s/p Vanco/Levaquin-d/c, completed course initially, s/p fluconazole -WBC 7.2 today, afebrile -blood cx - after 5 days 2. Sacral decub with dermatitis - -examined yesterday, appeared to stage 3, there was no pus but some blood exudation on physical exam, also some break down of b/l superior gluteal folds - stage 2- noted to be on admission - continue with wound care-wound care nurse consult appreciated - Dr. Marte had spoken to Dr. Bowling initially last month, with no surgical intervention recommended-we will reach out to surgery again today to re- evaluate, appreciate their help - Pt advised to cooperate with turning/rolling - PT consulted and continues to work with patient, patient does not want sub- acute rehab. 3. Nausea and associated vomiting episode -has good and bad days, feels improved today -patient had one episode a few days ago where she vomited up her food, she states she is only really able to tolerate yogurt, doesn't have abdominal pain and doesn't complain of of food getting lodged in throat-patient denies further vomiting episodes -copyright clerk consult has been performed -c/w Zofran 4. DANIELE on CKD - - Cr 1.68 improved today -continue to monitor -c/w avoidance of nephrotoxins 5. History of systolic and diastolic -appears compensated 6. History of moderate pulmonary hypertension -will need outpatient follow-up 7. Morbid obesity -complicated care 8. History of hypothyroidism -c/w Synthroid 9. History of CVA -c/w aspirin and statin 10. History of chronic back pain -stable 11. Gait dysfunction secondary to morbid obesity, and deconditioning - Physical therapy on board -PFS to see patient today, patients plan of care needs to be addressed with social issues and discharge DVT prophy: Heparin subcutaneous Overall prognosis guarded. Pending PFS consult/plan. Plan/VTE VTE Prophylaxis Ordered?: Yes VS, I&O, 24H, Fishbone Vital Signs/I&O Vital Signs Date Time Temp Pulse Resp B/P (MAP) Pulse Ox O2 Delivery O2 Flow Rate FiO2 07/15/18 06:00 98.5 88 18 111/65 (80) 94 07/14/18 15:00 Room Air 07/10/18 16:25 15.0 50 I&O- Last 24 Hours up to 6 AM 07/15/18 06:00 Intake Total 400 ml Output Total 650 ml Balance -250 ml Laboratory Data 24H LABS Laboratory Tests 2 07/15/18 05:55: Immature Granulocyte % (Auto) 0.3, White Blood Count 7.2, Red Blood Count 3.94L, Hemoglobin 9.9L, Hematocrit 31.3L, Mean Corpuscular Volume 79.4L, Mean Corpuscular Hemoglobin 25.1L, Mean Corpuscular Hemoglobin Concent 31.6L, Red Cell Distribution Width 18.9H, Platelet Count 423, Neutrophils (%) (Auto) 52.6, Lymphocytes (%) (Auto) 23.4L, Monocytes (%) (Auto) 17.9H, Eosinophils (%) (Auto) 4.8H, Basophils (%) (Auto) 1.0, Neutrophils # (Auto) 3.8, Lymphocytes # (Auto) 1.7, Monocytes # (Auto) 1.3H, Eosinophils # (Auto) 0.3, Basophils # (Auto) 0.1, Nucleated Red Blood Cells % (auto) 0.0, Anion Gap 5L, Glomerular Filtration Rate 31.2L, Blood Urea Nitrogen 14, Creatinine 1.68H, Sodium Level 138, Potassium Level 4.8, Chloride Level 107, Carbon Dioxide Level 26, Calcium Level 9.1, Magnesium Level 2.2 CBC/BMP Laboratory Tests 07/15/18 05:55 Red Blood Count 3.94 L, Mean Corpuscular Volume 79.4 L, Mean Corpuscular Hemoglobin 25.1 L, Mean Corpuscular Hemoglobin Concent 31.6 L, Red Cell Distribution Width 18.9 H, Neutrophils (%) (Auto) 52.6, Lymphocytes (%) (Auto) 23.4 L, Monocytes (%) (Auto) 17.9 H, Eosinophils (%) (Auto) 4.8 H, Basophils (%) (Auto) 1.0, Neutrophils # (Auto) 3.8, Lymphocytes # (Auto) 1.7, Monocytes # (Auto) 1.3 H, Eosinophils # (Auto) 0.3, Basophils # (Auto) 0.1, Calcium Level 9.1 GME ATTESTATION GME ATTESTATION My faculty preceptor for this patient encounter was physically present during the encounter and was fully available. All aspects of the patient interview, examination, medical decision making process, and medical care plan development were reviewed and approved by the faculty preceptor. The faculty preceptor is aware and concurs with the plan as stated in the body of this note and will attest to such by his/her cosignature. FANTASMA ALBA DO Jul 15, 2018 09:34
[2018-07-15] MEDS: PERCOCET 5MG/325MG TAB PO PRN (13:21)
--- NOTE | 2018-07-15 15:21 | REP ---
Bilateral lower extremity duplex venous ultrasound with reflux examination: History: Leg swelling. Ulcer. Findings: Deep veins are anechoic and fully compressible on two-dimensional scanning from the groin to the popliteal fossa in the lower extremities bilaterally. Color flow and spectral Doppler interrogation shows no evidence of venous thrombosis. Reflux evaluation. Exam was somewhat limited due to the patient's pain. On the right significant reflux is seen throughout the greater saphenous vein which is large in size extending down to the knee. Greater saphenous vein measures 5.2 mm at the proximal saphenofemoral junction and demonstrates 3.3 second duration reflux. The greater saphenous vein at mid thigh measures 4.9 mm in AP dimension and demonstrates reflux 0.4 seconds in duration. At the knee, the greater saphenous vein measures 6 mm in diameter and demonstrates 4.4 second duration reflux. No lesser saphenous vein is seen. Reflux is observed in the common femoral vein as well. No other deep system reflux is observed on the right. On the left, reflux greater than 0.5 seconds is observed in the common femoral vein. The greater saphenous vein measures 5.8 mm in AP dimension proximally at the saphenofemoral junction and demonstrates 3.8 second duration reflux. At mid thigh, the greater saphenous vein measures 4.4 mm in diameter. At the knee the greater saphenous vein measures 4.2 mm in diameter and demonstrates 3.9 second duration reflux. There is a large collateral off the mid greater saphenous vein in the left leg with reflux. No other deep system reflux is present on the left. Impression: Significant bilateral reflux. No evidence of DVT. Electronically Signed by Manuel Cardenas MD 07/15/2018 05:10 P
[2018-07-15] MEDS: hydrOXYzine 10 MG TAB PO PRN (20:40)
[2018-07-15] MEDS: LEVOTHYROXINE 125MCG TABLET (0.125MG) PO SCH (20:40)
[2018-07-15 22:00] VITALS: BP 101/55
[2018-07-16] MEDS: PERCOCET 5MG/325MG TAB PO PRN ×4 (05:36→21:07)
[2018-07-16] MEDS: HEPARIN SOD (PORCINE) 5000 UNITS/ML VIAL SC SCH ×3 (05:36→21:08)
[2018-07-16 05:49] LABS: BASO # 0.1 10^3/uL (0.0-0.2); BASO % 0.7 % (0.0-1.0); EOS # 0.3 10^3/uL (0.0-0.50); EOS % 3.1 % (0.0-3.0); HEMATOCRIT 32.2 % (36.0-47.0); HEMOGLOBIN 10.2 g/dl (12.0-15.5); LYMPH # 1.5 10^3/uL (1.5-4.5); LYMPH % 17.3 % (24.0-44.0); MEAN CORPUSCULAR HEMOGLOBIN 25.4 pg (27.0-33.0); MEAN CORPUSCULAR HGB CONC 31.7 g/dl (32.0-36.5); MEAN CORPUSCULAR VOLUME 80.1 fl (80.0-96.0); MONO # 1.6 10^3/uL (0.0-0.8); MONO % 18.2 % (0.0-5.0); NEUTROPHILS # 5.1 10^3/uL (1.8-7.7); NEUTROPHILS % 60.3 % (36.0-66.0); PLATELET COUNT, AUTOMATED 471 10^3/uL (150-450); RED BLOOD COUNT 4.02 10^6/uL (4.00-5.40); WHITE BLOOD COUNT 8.5 10^3/uL (4.0-10.0)
[2018-07-16 06:00] VITALS: BP 126/58
[2018-07-16 06:12] LABS: CALCIUM LEVEL 9.1 MG/DL (8.8-10.2); CREATININE FOR GFR 1.78 MG/DL (0.55-1.30); GLOMERULAR FILTRATION RATE 29.2 (>32); MAGNESIUM LEVEL 2.2 MG/DL (1.8-2.4); POTASSIUM SERUM 4.4 MEQ/L (3.5-5.1)
--- NOTE | 2018-07-16 08:55 | IPNPDOC ---
Subjective Date Seen The patient was seen on 07/16/18. Subjective Chief Complaint/HPI . General: Reports: Fatigue; Denies: Chills Constitutional: Reports: Weakness Pulmonary: Denies: Dyspnea, Cough Cardiovascular: Denies: Chest Pain, Palpitations, Lt Headedness Gastrointestinal: Denies: Nausea, Vomiting, Abdominal Pain, Diarrhea, Constipation, Melena Musculoskeletal: Reports: Leg Pain (b/l LE ache), Foot Pain (right foot/toe a little uncomfortable) Neurological: Reports: Weakness Psych: Reports: Mood Normal Objective Physical Examination General Exam: Positive: Alert, Cooperative, No Acute Distress Eye Exam: Positive: Conjunctiva & lids normal ENT Exam: Positive: Mucous membr. moist/pink Chest Exam: Positive: Diminished; Negative: Rales, Rhonchi, Wheezing Heart Exam: Positive: Normal S1, Normal S2; Negative: Gallops, Murmurs, Rubs Abdomen Exam: Positive: Normal bowel sounds, Soft; Negative: Tenderness, Hepatospenomegaly Extremity Exam: Positive: Edema, Other (right toe on has black almost necrotic tissue on medial aspect of first digit, appears unchanged today); Negative: Clubbing, Cyanosis Skin Exam: Positive: Breakdown (B/L LE shows healing areas of cellulitis, right foot is open, there is no pus or blood exudation, left LE seems improved again today-right black appearing wound on medial aspect right toe) Psych Exam: Positive: Oriented x 3 Assessment /Plan Assessment 1. Sepsis 2/2 RLE cellulitis -right toe has some dark black necrotic appearing tissue today on physical exam again today, it is open to air again -General surgery has seen patient, appreciate their help, recommend vascular consult- b/l arterial u/s for arterial flow does not appear to demonstrate PAD although exam was noted to not be of best quality due to edema and patient refusal due to pain during parts of exam-spoke with vascular surgery today, VVI study obtained one day ago and they will review imaging and make further recommendations -General surgery has seen pt., appreciate their help-recommend no acute intervention at this time -CRP seems to have plateaued - Levaquin abx course finished and d/c, left lower extremity looks improved today, holding MRI of LLE, less concern for osteomyelitis -Left foot x-ray had demonstrated osteopenia and degenerative changes - Wound cx strep/proteus/cornybacterium, staph, MRSA + -Seen by ID. s/p Vanco/Levaquin-d/c, completed course initially, s/p fluconazole -WBC 8.5 today, afebrile -blood cx - after 5 days 2. Sacral decub with dermatitis - -appeared to stage 3, there was no pus but some blood exudation on physical exam, also some break down of b/l superior gluteal folds - stage 2- noted to be on admission - continue with wound care-wound care nurse consult appreciated - Dr. Marte had spoken to Dr. Bowling initially last month, with no surgical intervention recommended-we will reach out to surgery again today to re- evaluate, appreciate their help-they have stated no acute intervention to perform now - Pt advised to cooperate with turning/rolling - PT consulted and continues to work with patient, patient does not want sub-acu te rehab.-plan as outlined below 3. Nausea and associated vomiting episode -has good and bad days, feels okay today -patient had one episode a few days ago where she vomited up her food, she states she is only really able to tolerate yogurt, doesn't have abdominal pain and doesn't complain of of food getting lodged in throat-patient denies further vomiting episodes -aviation ordnance officer consult has been performed -c/w Zofran 4. DANIELE on CKD - - Cr 1.78 improved today -continue to monitor -c/w avoidance of nephrotoxins 5. History of systolic and diastolic -appears compensated 6. History of moderate pulmonary hypertension -will need outpatient follow-up 7. Morbid obesity -complicated care 8. History of hypothyroidism -c/w Synthroid 9. History of CVA -c/w aspirin and statin 10. History of chronic back pain -stable 11. Gait dysfunction secondary to morbid obesity, and deconditioning -Physical therapy on board -apparently per nursing staff, pt has agreed to be d/c with stand and pivot w hich is apparently PT's recommendations, the patient is agreeable to home PT referral DVT prophy: Heparin subcutaneous Overall prognosis guarded. Seems patient has PT plan as outline above, will aw ait vascular surgery on recommendations of VVI study once they are reviewed, expect d/c in AM. ABX have been d/c/completed. Plan/VTE VTE Prophylaxis Ordered?: Yes VS, I&O, 24H, Fishbone Vital Signs/I&O Vital Signs Date Time Temp Pulse Resp B/P (MAP) Pulse Ox O2 Delivery O2 Flow Rate FiO2 07/16/18 06:06 18 07/16/18 06:00 96.8 87 126/58 (80) 93 07/15/18 13:51 Room Air 07/10/18 16:25 15.0 50 I&O- Last 24 Hours up to 6 AM 07/16/18 05:59 Intake Total 860 ml Output Total 575 ml Balance 285 ml Laboratory Data 24H LABS Laboratory Tests 2 07/16/18 05:29: Immature Granulocyte % (Auto) 0.4, White Blood Count 8.5, Red Blood Count 4.02, Hemoglobin 10.2L, Hematocrit 32.2L, Mean Corpuscular Volume 80.1, Mean Corpuscular Hemoglobin 25.4L, Mean Corpuscular Hemoglobin Concent 31.7L, Red Cell Distribution Width 19.0H, Platelet Count 471H, Neutrophils (%) (Auto) 60.3, Lymphocytes (%) (Auto) 17.3L, Monocytes (%) (Auto) 18.2H, Eosinophils (%) (Auto) 3.1H, Basophils (%) (Auto) 0.7, Neutrophils # (Auto) 5.1, Lymphocytes # (Auto) 1.5, Monocytes # (Auto) 1.6H, Eosinophils # (Auto) 0.3, Basophils # (Auto) 0.1, Nucleated Red Blood Cells % (auto) 0.0, Anion Gap 7L, Glomerular Filtration Rate 29.2L, Blood Urea Nitrogen 15, Creatinine 1.78H, Sodium Level 137, Potassium Level 4.4, Chloride Level 105, Carbon Dioxide Level 25, Calcium Level 9.1, Magnesium Level 2.2 CBC/BMP Laboratory Tests 07/16/18 05:29 Red Blood Count 4.02, Mean Corpuscular Volume 80.1, Mean Corpuscular Hemoglobin 25.4 L, Mean Corpuscular Hemoglobin Concent 31.7 L, Red Cell Distribution Width 19.0 H, Neutrophils (%) (Auto) 60.3, Lymphocytes (%) (Auto) 17.3 L, Monocytes (%) (Auto) 18.2 H, Eosinophils (%) (Auto) 3.1 H, Basophils (%) (Auto) 0.7, Neutrophils # (Auto) 5.1, Lymphocytes # (Auto) 1.5, Monocytes # (Auto) 1.6 H, Eosinophils # (Auto) 0.3, Basophils # (Auto) 0.1, Calcium Level 9.1 GME ATTESTATION GME ATTESTATION My faculty preceptor for this patient encounter was physically present during the encounter and was fully available. All aspects of the patient interview, examination, medical decision making process, and medical care plan development were reviewed and approved by the faculty preceptor. The faculty preceptor is aware and concurs with the plan as stated in the body of this note and will attest to such by his/her cosignature. FANTASMA ALBA DO Jul 16, 2018 08:55
[2018-07-16] MEDS: LACTULOSE 20 GM/30 ML SYRUP UD PO SCH ×3 (09:00→21:00)
[2018-07-16] MEDS: SENOKOT S TAB PO SCH ×2 (09:00→21:00)
[2018-07-16] MEDS: ASPIRIN 81 MG ENTERIC TAB PO SCH (09:05)
[2018-07-16] MEDS: LACTOBACILLUS ACIDOPHILUS CAP (BACID) PO SCH ×3 (09:05→18:04)
[2018-07-16] MEDS: FERROUS SULFATE 325MG TAB PO SCH (09:05)
[2018-07-16] MEDS: ROSUVASTATIN 10 MG TAB (CRESTOR) PO SCH (09:05)
[2018-07-16] MEDS: NYSTATIN 100,000 UNITS/GM TOPICAL PWD 15 GM TOP SCH ×2 (09:06→21:00)
[2018-07-16] MEDS: LEVOTHYROXINE 125MCG TABLET (0.125MG) PO SCH (21:08)
[2018-07-16 22:00] VITALS: BP 98/51
[2018-07-17 05:54] LABS: BASO # 0.1 10^3/uL (0.0-0.2); BASO % 1.1 % (0.0-1.0); EOS # 0.5 10^3/uL (0.0-0.50); EOS % 5.7 % (0.0-3.0); HEMATOCRIT 33.2 % (36.0-47.0); HEMOGLOBIN 10.2 g/dl (12.0-15.5); LYMPH # 1.9 10^3/uL (1.5-4.5); LYMPH % 23.5 % (24.0-44.0); MEAN CORPUSCULAR HEMOGLOBIN 24.6 pg (27.0-33.0); MEAN CORPUSCULAR HGB CONC 30.7 g/dl (32.0-36.5); MEAN CORPUSCULAR VOLUME 80.2 fl (80.0-96.0); MONO # 1.3 10^3/uL (0.0-0.8); MONO % 16.7 % (0.0-5.0); NEUTROPHILS # 4.1 10^3/uL (1.8-7.7); NEUTROPHILS % 52.6 % (36.0-66.0); PLATELET COUNT, AUTOMATED 468 10^3/uL (150-450); RED BLOOD COUNT 4.14 10^6/uL (4.00-5.40); WHITE BLOOD COUNT 7.9 10^3/uL (4.0-10.0)
[2018-07-17 06:00] VITALS: BP 103/50
[2018-07-17] MEDS: HEPARIN SOD (PORCINE) 5000 UNITS/ML VIAL SC SCH (06:16)
[2018-07-17] MEDS: LevoFLOXacin 250 MG TABLET PO SCH (06:16)
[2018-07-17 06:22] LABS: CALCIUM LEVEL 9.2 MG/DL (8.8-10.2); CREATININE FOR GFR 1.68 MG/DL (0.55-1.30); GLOMERULAR FILTRATION RATE 31.2 (>32); MAGNESIUM LEVEL 2.3 MG/DL (1.8-2.4); POTASSIUM SERUM 4.2 MEQ/L (3.5-5.1)
[2018-07-17] MEDS: LACTULOSE 20 GM/30 ML SYRUP UD PO SCH (07:35)
[2018-07-17] MEDS: NYSTATIN 100,000 UNITS/GM TOPICAL PWD 15 GM TOP SCH (09:00)
[2018-07-17] MEDS: SENOKOT S TAB PO SCH (09:00)
[2018-07-17] MEDS: ROSUVASTATIN 10 MG TAB (CRESTOR) PO SCH (09:50)
[2018-07-17] MEDS: LACTOBACILLUS ACIDOPHILUS CAP (BACID) PO SCH (09:50)
[2018-07-17] MEDS: ASPIRIN 81 MG ENTERIC TAB PO SCH (09:51)
[2018-07-17] MEDS: FERROUS SULFATE 325MG TAB PO SCH (09:51)
[2018-07-17] MEDS: PERCOCET 5MG/325MG TAB PO PRN (09:53)
[2018-07-17] MEDS ORDERED: NYAM10003 TOP (10:38)
--- NOTE | 2018-07-17 10:55 | DS.PDOC ---
Discharge Summary General Date of Admission Jun 24, 2018 at 16:06 Date of Discharge 07/17/18 Discharge Summary PROCEDURES PERFORMED DURING STAY: None ADMITTING DIAGNOSES: 1. Right lower extremity Cellulitis/Sepsis 2. DANIELE/CKD3 3. History of nephrolithiasis 4. Hypothyroid 5. Dyslipidemia 6. Morbid obesity 7. Hypokalemia. 8. Hypomagnesemia. 9. Hypertension. 10. CAD/history of stent DISCHARGE DIAGNOSES: 1. Sepsis 2/2 RLE cellulitis 2. 2. Sacral decub with dermatitis 3. 3. Nausea and associated vomiting episode 4. 4. DANIELE on CKD 5. 5. History of systolic and diastolic 6. History of moderate pulmonary hypertension 7. Morbid obesity 8. History of hypothyroidism 9. History of CVA 10. History of chronic back pain 11. Gait dysfunction secondary to morbid obesity, and deconditioning 12. COMPLICATIONS/CHIEF COMPLAINT: Cellulitis, Sepsis. HISTORY OF PRESENT ILLNESS: 77 y/o morbidly obese female presented to the ED on 06.24.18 with complaint of right lower extremity erythema associated with chills, decreased appetitie and generalized weakness. She was admitted for cellulitis. HOSPITAL COURSE: During the course of the patients hospital stay she was treated with many days of IV antibiotic therapy and PO therapy. Her white count did normalize and CRP did improve, she remained afebrile while hospitalized, she was MRSA screen positive, gram stain did grown MRSA, strep Group C, Corynebacterium and proteus. Blood cultures were negative, urine culture did grow yeast like organism. Unfortunately the patient intermittently would agree to work with PT, it was eventually decided and the patient agreed to be stand and pivot which was apparently PT's recommendations, the patient eventually was agreeable to home PT referral as well. She refused to see wound care physician in house as she did not like him from personal past experiences, she was seen by general and vascular surgeon for her sacral decubitus ulcer and right lower extremity ulcer on her right toe which had begun to look black during her stay. General surgery did not feel surgical intervention was warranted and instead felt a vascular surgery consult was warranted, vascular surgery did perform a VVI duplex along with arterial study on b/l lower extremities which did not show significant PAD nor valvular disease or DVT. Vascular surgery did not feel any intervention was necessary on this hospitalization from their end, and that the patient could follow up with their office once discharged. The patients wounds were seen and addressed by wound care nurse consult, she will be given wound care dressing changing instructions on discharge by nursing staff. The patient was counseled to return to the hospital should she experience fever, worsening redness/swelling of extremities or pus/blood exudation from wounds including her decubitus ulcer. The patient verbalized her understanding and had no questions. She was also seen by dietary in hospital for consult as she only favored eating yogurt as other foods made her nauseas, this proved beneficial for her as she began to tolerate different food options without difficultly. X-ray of right foot with dark tissue had demonstrated osteopenia and degenerative changes with minimal swelling. DISCHARGE MEDICATIONS: Please see below. ALLERGIES: Please see below. PHYSICAL EXAMINATION ON DISCHARGE: VITAL SIGNS: Please see below. GENERAL: morbidly obese female laying in bed, seems comfortable, NAD until rolling over to reveal sacral decubitus ulcer HEENT: EOMI, moist mucus membranes, nares patent b/l NECK: supple CARDIOVASCULAR EXAMINATION: distant heart sounds secondary to body habitus, normal s1 and s2, no murmurs, rubs or gallops RESPIRATORY EXAMINATION: diminished throughout secondary to body habitus, no rales, wheezing or rhonchi appreciated ABDOMINAL EXAMINATION: soft, obese, nabsx4, no hepatosplenomegaly, no pain to palpation, no rebound and no guarding EXTREMITIES: b/l LE swelling seems improved today chronic venous stasis and lymphedema, healing area dark tissue on right toe without blood or exudation, stage 3 decubitus ulcer without barrett pus or blood, with surrounding scaling of skin and erythema from pressure and non-ambulation and body habitus without blood or pus exudation SKIN: as described above NEUROLOGICAL EXAMINATION: without focal deficit PSYCHIATRIC EXAMINATION: affect is appropriate LABORATORY DATA: Please see below. IMAGING: Duplex u/s Impression: No evidence of deep venous thrombosis of the bilateral visualized lower extremity femoral popliteal venous system. CXR 06.24.18 Impression: Cardiomegaly. Renal u/s 06.24.18 Impression: No evidence of hydronephrosis. Somewhat dilated gallbladder containing sludge and stones. Small bilateral renal cysts. Increased renal cortical echogenicity pattern consistent with chronic medical renal disease. Foot x ray 07.11.18 Impression: Osteopenia and degenerative changes. Moderate swelling. Extremity arterial study 07.14.18 Findings: Ankle brachial indices could not be accomplished due to pain tolerance. Exam quality is inhibited considerably by this and as a result of discomfort, the patient declined or refused examination distal to the left knee. Triphasic flow waveforms are noted on the right throughout. The proximal posterior tibial artery on the right could not be visualized due to this severe soft tissue edema. On the left: Normal triphasic waveforms are seen from the common femoral artery segment through the distal superficial femoral artery. Severe soft tissue edema is seen on the left as well. Vascular 1.3. b/l LE duplex VVI study Impression: Significant bilateral reflux. No evidence of DVT. PROGNOSIS: stable but guarded in light of morbid obesity and unwillingness to move/ambulate ACTIVITY: As tolerated-pt is largely bed bound DIET: as tolerated DISCHARGE PLAN: home with close follow up with PCP next week and vascular surgery within 7-10 days of d.c, follow up with wound care doctor with in 7 days of d/c DISPOSITION: stable DISCHARGE INSTRUCTIONS: 1. follow up with pcp, wound care and vascular surgery within 7-10 days of d.c DISCHARGE CONDITION: Stable TIME SPENT ON DISCHARGE: Greater than 45 minutes. Vital Signs/I&Os Vital Signs Date Time Temp Pulse Resp B/P (MAP) Pulse Ox O2 Delivery O2 Flow Rate FiO2 07/17/18 09:53 82 18 94 Room Air 07/17/18 06:00 97.3 103/50 (67) I&O- Last 24 Hours up to 6 AM 07/17/18 05:59 Intake Total 710 ml Output Total 1175 ml Balance -465 ml Laboratory Data Labs 24H Laboratory Tests 2 07/17/18 05:32: Immature Granulocyte % (Auto) 0.4, White Blood Count 7.9, Red Blood Count 4.14, Hemoglobin 10.2L, Hematocrit 33.2L, Mean Corpuscular Volume 80.2, Mean Corpuscular Hemoglobin 24.6L, Mean Corpuscular Hemoglobin Concent 30.7L, Red Cell Distribution Width 19.1H, Platelet Count 468H, Neutrophils (%) (Auto) 52.6, Lymphocytes (%) (Auto) 23.5L, Monocytes (%) (Auto) 16.7H, Eosinophils (%) (Auto) 5.7H, Basophils (%) (Auto) 1.1H, Neutrophils # (Auto) 4.1, Lymphocytes # (Auto) 1.9, Monocytes # (Auto) 1.3H, Eosinophils # (Auto) 0.5, Basophils # (Auto) 0.1, Nucleated Red Blood Cells % (auto) 0.0, Anion Gap 7L, Glomerular Filtration Rate 31.2L, Blood Urea Nitrogen 16, Creatinine 1.68H, Sodium Level 137, Potassium Level 4.2, Chloride Level 105, Carbon Dioxide Level 25, Calcium Level 9.2, Magnesium Level 2.3 CBC/BMP Laboratory Tests 07/17/18 05:32 Red Blood Count 4.14, Mean Corpuscular Volume 80.2, Mean Corpuscular Hemoglobin 24.6 L, Mean Corpuscular Hemoglobin Concent 30.7 L, Red Cell Distribution Width 19.1 H, Neutrophils (%) (Auto) 52.6, Lymphocytes (%) (Auto) 23.5 L, Monocytes (%) (Auto) 16.7 H, Eosinophils (%) (Auto) 5.7 H, Basophils (%) (Auto) 1.1 H, Neutrophils # (Auto) 4.1, Lymphocytes # (Auto) 1.9, Monocytes # (Auto) 1.3 H, Eosinophils # (Auto) 0.5, Basophils # (Auto) 0.1, Calcium Level 9.2 Discharge Medications Scheduled (Leg Cramp Relief) 1 Tab Tab, 1 TAB PO QHS, (Reported) Aspirin (Aspirin 81) 81 Mg Tab, 81 MG PO DAILY, (Reported) Ergocalciferol (Vitamin D) 50,000 Unit Cap, 50,000 UNIT PO MTHLY, (Reported) TAKES ON THE FIRST OF THE MONTH Ferrous Sulfate (Ferrous Sulfate) 325 Mg Tab, 325 MG PO DAILY, (Reported) Ibandronate Sodium (Ibandronate Sodium) 150 Mg Tab, 150 MG PO QMONTH, (Reported) TAKES ON THE 1ST OF THE MONTH Lactobacillus Acidophilus (Bacid) 1 Tab Tab, 1 TAB PO DAILY, (Reported) Levothyroxine Sodium (Synthroid) 125 Mcg Tab, 125 MCG PO QHS, (Reported) Magnesium Gluconate (Magnesium Gluconate) 500 Mg Tab, 500 MG PO QHS, (Reported) Nystatin (Nyamyc) 100,000 Unit/Gm Pow, 0 DOSE TOP BID Potassium Chloride (Potassium Chloride ER) 10 Meq Tab, 10 MEQ PO DAILY, (Reported) Rosuvastatin Calcium (Crestor) 40 Mg Tab, 40 MG PO DAILY, (Reported) Scheduled PRN Hydroxyzine HCl (Hydroxyzine HCl) 10 Mg Tab, 10 MG PO BID PRN for ITCHING, (Reported) Allergies Coded Allergies: Phenobarbital (Verified Allergy, Intermediate, HIVES, 12/29/16) Sulfa Drugs (Verified Allergy, Intermediate, HIVES, 12/29/16) Camphor (Unverified Allergy, Unknown, SKIN BLISTERS, 01/11/17) Carboxymethylcellulose (Unverified Allergy, Unknown, SKIN BLISTERS, 01/11/17) Latex (Verified Allergy, Unknown, 12/29/16) Menthol (Unverified Allergy, Unknown, SKIN BLISTERS, 01/11/17) Methyl Salicylate (Unverified Allergy, Unknown, SKIN BLISTERS, 01/11/17) Pineapple (Verified Allergy, Unknown, 12/29/16) TAPE (Verified Allergy, Unknown, 12/29/16) Trolamine Salicylate (Unverified Allergy, Unknown, SKIN BLISTERS, 01/11/17) Clindamycin (Unverified Adverse Reaction, Intermediate, VOMITING, 12/29/16) GME ATTESTATION GME ATTESTATION My faculty preceptor for this patient encounter was physically present during the encounter and was fully available. All aspects of the patient interview, examination, medical decision making process, and medical care plan development were reviewed and approved by the faculty preceptor. The faculty preceptor is aware and concurs with the plan as stated in the body of this note and will attest to such by his/her cosignature. FANTASMA ALBA DO Jul 17, 2018 10:55
== END 2018-07-17 14:40 | disposition home health service (06) | DRG 872 ==
LOC: M ED 12:05 → M ED INP 16:06 → M PCU 16:58 → M MS5PR 06-26 12:06 → M MSPAV 06-30 16:15
PROVIDERS: ADMIT Internal Medicine; ATTEND Internal Medicine Nephrology
DX: A41.9 Sepsis, unspecified organism (principal); L03.115 Cellulitis of right lower limb; L03.116 Cellulitis of left lower limb; N17.9 Acute kidney failure, unspecified; Z68.42 Body mass index [BMI] 45.0-49.9, adult; I50.42 Chronic combined systolic (congestive) and diastolic (congestive) heart failure; N39.0 Urinary tract infection, site not specified; E46 Unspecified protein-calorie malnutrition; I13.0 Hypertensive heart and chronic kidney disease with heart failure and stage 1 through stage 4 chronic kidney disease, or unspecified chronic kidney disease; N18.3 Chronic kidney disease, stage 3 (moderate); E66.01 Morbid (severe) obesity due to excess calories; B37.3 Candidiasis of vulva and vagina; L89.152 Pressure ulcer of sacral region, stage 2; I25.10 Atherosclerotic heart disease of native coronary artery without angina pectoris; E03.9 Hypothyroidism, unspecified; I27.20 Pulmonary hypertension, unspecified; Z86.73 Personal history of transient ischemic attack (TIA), and cerebral infarction without residual deficits; E78.5 Hyperlipidemia, unspecified; E87.6 Hypokalemia; E83.42 Hypomagnesemia; Z95.2 Presence of prosthetic heart valve; Z76.82 Awaiting organ transplant status; Z79.899 Other long term (current) drug therapy; Z88.2 Allergy status to sulfonamides; Z88.8 Allergy status to other drugs, medicaments and biological substances; Z91.040 Latex allergy status; Z91.018 Allergy to other foods; Z85.51 Personal history of malignant neoplasm of bladder; B35.6 Tinea cruris; B35.8 Other dermatophytoses; R26.89 Other abnormalities of gait and mobility; B95.5 Unspecified streptococcus as the cause of diseases classified elsewhere; B96.4 Proteus (mirabilis) (morganii) as the cause of diseases classified elsewhere; B95.62 Methicillin resistant Staphylococcus aureus infection as the cause of diseases classified elsewhere; M54.5 Low back pain

== ENCOUNTER 2018-07-26 14:49 | Inpatient (IN) | payer MEDICARE, MEDICAID ==
[~2018-07-26] VITALS: Ht 152.4 cm; Wt 94.1 kg
[2018-07-26] MEDS: PIPERACILLIN/TAZOBACTAM SOD 2.25 GM in D5W MINI-BAG PLUS 50 ML IV SCH ×2 (07:00→19:00)
[~2018-07-26 14:49] MED LIST changes: +FERR1TAB8 PO
[2018-07-26] MEDS ORDERED: NYST1POW9 TOP (16:42)
[2018-07-26] MEDS ORDERED: KLOR20TA42 PO (16:43)
[2018-07-26] MEDS ORDERED: LEG1TAB PO (17:01)
[2018-07-26] MEDS ORDERED: hydrOXYzine 10 MG TAB PO PRN (18:15)
[2018-07-26 18:20] LABS: BASO # 0.1 10^3/uL (0.0-0.2); BASO % 0.4 % (0.0-1.0); EOS % 0.2 % (0.0-3.0); HEMATOCRIT 33.7 % (36.0-47.0); HEMOGLOBIN 10.6 g/dl (12.0-15.5); LYMPH # 1.4 10^3/uL (1.5-4.5); LYMPH % 6.4 % (24.0-44.0); MEAN CORPUSCULAR HGB CONC 31.5 g/dl (32.0-36.5); MEAN CORPUSCULAR VOLUME 79.5 fl (80.0-96.0); MONO # 1.9 10^3/uL (0.0-0.8); MONO % 8.6 % (0.0-5.0); NEUTROPHILS # 18.1 10^3/uL (1.8-7.7); NEUTROPHILS % 83.4 % (36.0-66.0); PLATELET COUNT, AUTOMATED 651 10^3/uL (150-450); RED BLOOD COUNT 4.24 10^6/uL (4.00-5.40); WHITE BLOOD COUNT 21.7 10^3/uL (4.0-10.0)
[2018-07-26 18:27] LABS: INR 1.2; PROTHROMBIN TIME 15.4 SECONDS (12.1-14.4)
[2018-07-26 18:28] LABS: PARTIAL THROMBOPLASTIN TIME 36.1 SECONDS (25.4-37.6)
[2018-07-26 18:53] LABS: CALCIUM LEVEL 10.1 MG/DL (8.8-10.2); CREATININE FOR GFR 1.56 MG/DL (0.55-1.30)
[2018-07-26] MEDS ORDERED: PIPERACILLIN/TAZOBACTAM SOD 2.25 GM in D5W MINI-BAG PLUS 50 ML IV ONE (19:00)
[2018-07-26] MEDS: NS 1,000 ML IV SCH (19:15)
[2018-07-26] MEDS: MORPHINE 4 MG/ML 1ML VIAL/SYRINGE (J2270) IV PRN (20:09)
--- NOTE | 2018-07-26 20:25 | HPE ---
DATE OF ADMISSION: 07/26/2018 An 78-year-old female with a past medical history of supermorbid obesity, a history of hypothyroidism, hyperlipidemia, chronic kidney disease III, chronic lower extremity edema, recurrent cellulitis of the lower extremity, presents to the emergency room withy pain on her right foot and difficulty in mobility. She denies any subjective feeling of fever, aches, or chills. She did tell me that she refused wound care to come to her house because she did not like the wound care physician, and she also mentioned that she didn't receive home PT, although the discharge summary where she was recently discharged from our facility for cellulitis and sepsis, she refused physical therapy (PT) to come to her house. The patient was methicillin-resistant Staphylococcus aureus (MRSA) positive on last admission, was given vancomycin, and she left with a normal white count. However, now with repeat labs, her CBC showed that her WBC jumped to 21,000 from 7,000 and IV Zosyn and vancomycin has been started. She will be admitted for further management. PAST MEDICAL HISTORY: Super morbid obesity. Chronic kidney disease III. Hypothyroidism. Hyperlipidemia. Chronic lower extremity edema. History of recurrent cellulitis of the lower extremities. Hypertension. Coronary artery disease. Nephrolithiasis. History of bladder cancer. PAST SURGICAL HISTORY: Cystoscopy with stent placement due to nephrolithiasis. History of lumbar laminectomy. Hysterectomy. Appendectomy. Left knee surgery times two. ALLERGIES: She has drug allergies to CAMPHOR, CARBOXYMETHYLCELLULOSE, CLINDAMYCIN, PHENOBARBITAL, SULFA DRUGS, TROLAMINE, SALICYLATES. FAMILY HISTORY: Noncontributory. SOCIAL HISTORY: The patient denies tobacco, alcohol, or illicit drugs. MEDICATIONS: She takes at home are as follows: - aspirin 81 mg orally daily - ergocalciferol 50,000 units orally every month - ferrous sulfate 325 mg orally daily - hydroxyzine 10 mg orally twice daily as needed - ibandronate sodium 150 mg orally every month - lactobacillus one tablet orally daily - Synthroid 125 mcg orally at bedtime - magnesium gluconate 500 mg orally at bedtime - potassium chloride 20 mEq orally daily - rosuvastatin 40 mg orally daily REVIEW OF SYSTEMS: Negative all ten major systems except what is mentioned in the history of the present illness. Vital Signs: Blood pressure is 110/55, pulse is 117, regular, respiratory rate 20, temperature 98.5, oxygen saturation is 98% on room air. Head is atraumatic, normocephalic. Neck supple. No jugular venous distention (JVD). Lungs are clear to auscultation. S1, S2 audible, No murmurs appreciated. Abdomen: Soft, positive bowel sounds. No pedal edema. Skin Examination: There is an eschar on the right great toe with mild erythema surrounding the area. There is also a large skin tear in the lateral portion of the right leg with erythematous border as well. No dorsalis pedis (DP) pulses were appreciated bilaterally. Neurologic Examination: Patient awake, alert, oriented times three. LABORATORY: WBC 21.7, hemoglobin 10.6, hematocrit 33.7, platelets are 651,000. Sodium 128, potassium is 5, chloride is 98, CO2 19, anion gap 11, BUN is 26, creatinine 1.56, fasting glucose 132, lactic acid is 2.5. IMPRESSION: 1. Debility. 2. Cellulitis of the right leg. 3. Sepsis 4. Hyponatremia. PLAN: The patient is to be admitted to the progressive care unit (PCU). Will start the patient on IV Zosyn and vancomycin. Will check a UA and blood cultures as well. The patient did have an episode of vomiting in the emergency room. Will give Zofran for symptomatic relief. In the meantime, will continue the current wound care changes and all her preadmission medications. Repeat a CBC and BMP in the morning. Her hyponatremia is likely hypovolemic in nature. Will monitor sodium trends. Also monitor WBC trends as well. Repeat lactic acid in a few hours once the patient gets IV fluids and will continue her care on the PCU. One more thing to note: This patient would likely benefit from [facility]. She clearly is a very noncompliant individual and clear harm to herself. Will get physical therapy/occupational therapy to evaluate her and see if she would at least benefit to subacute rehab since she is refusing home PT. CARMEN
[2018-07-26] MEDS ORDERED: NS 1,000 ML IV ONE (20:30)
[2018-07-26 21:05] VITALS: BP 109/53
--- NOTE | 2018-07-26 21:19 | PHACANCOPD ---
PHARMACY VANCOMYCIN DOSING Pt Demographics Demographics Patient Age:78 , Weight:107.730 , Gender: female Adjusted Body Weight Events Past 24 Hours Events Past 24 Hours: NO: Dialysis, Diuretic Therapy, Change in CrCl, Fever, Elevation in WBC, Pending Diagnostics, Pending Procedures, Other Vancomycin Vancomycin indication: BLE CELLULITIS/SSSI Vancomycin Target Ranges: 15-20 mcg/ml Vancomycin Load Y/N: Yes Load Dose Date Time Vancomycin Load Dose: 1.5GM Date: 07/26/18 Time: 22:00 Vancomycin Dose Date: 07/27/18. Current Vancomycin Dose: [1GM IV Q48H (09:00)] Intermittent Dosing?: No Labs Labs Laboratory Tests 07/26/18 18:07 Red Blood Count 4.24, Mean Corpuscular Volume 79.5 L, Mean Corpuscular He moglobin 25.0 L, Mean Corpuscular Hemoglobin Concent 31.5 L, Red Cell Distribution Width 18.1 H, Neutrophils (%) (Auto) 83.4 H, Lymphocytes (%) (Auto) 6.4 L, Monocytes (%) (Auto) 8.6 H, Eosinophils (%) (Auto) 0.2, Basophils (%) (Auto) 0.4, Neutrophils # (Auto) 18.1 H, Lymphocytes # (Auto) 1.4 L, Monocytes # (Auto) 1.9 H, Eosinophils # (Auto) 0.0, Basophils # (Auto) 0.1, Calcium Level 10.1 Micro Microbiology 07/26/18 Blood Culture, Received Pending 07/26/18 Blood Culture, Received Pending 07/26/18 Urine Culture, Received Pending Creatinine Clearance Date:07/26/18. Creatinine Clearance: [>20 ml/min]. Assessment and Plan Maintaining Current Dose?: Yes Reason for dose change: No Dose Change Pharmacist Note Pharmacist Note Date: 07/26/18. PharmD note: SSSI/BLE CELLULITIS. PREVIOUS ADMISSION NOTED AND CONSULTED FOR DOSING. VANCO 1.5GM IV LOAD @ 22:00 THIS EVENING FOLLOWED BY VANCO 1GM IV Q48H STARTING AT 09:00 07/27/18. A VANCO TROUGH WILL BE ORDERED WHEN AT [facility] Jul 26, 2018 21:19
[2018-07-26] MEDS ORDERED: VANCOMYCIN HCL 1,000 MG, VIAL MATE ADAPTER 1 EACH in D5W 250 ML IV ONE (22:00)
[2018-07-26] MEDS: LEVOTHYROXINE 125MCG TABLET (0.125MG) PO SCH (22:28)
[2018-07-26] MEDS: MAGNESIUM GLUCONATE 500 MG TAB PO SCH (22:28)
[2018-07-26] MEDS: NYSTATIN 100,000 UNITS/GM TOPICAL PWD 15 GM TOP SCH (22:29)
[2018-07-26] MEDS: HEPARIN SOD (PORCINE) 5000 UNITS/ML VIAL SC SCH (22:29)
[2018-07-26] MEDS ORDERED: VANCOMYCIN HCL 500 MG in D5W MINI-BAG PLUS 100 ML IV ONE (23:00)
[2018-07-26 23:59] VITALS: BP 103/57
[2018-07-27] MEDS: ONDANSETRON 4MG/2ML VIAL (J2405) IV SCH ×2 (01:35→08:59)
[2018-07-27] MEDS: MORPHINE 4 MG/ML 1ML VIAL/SYRINGE (J2270) IV PRN ×3 (01:37→18:35)
[2018-07-27 04:00] VITALS: BP 90/56
[2018-07-27] MEDS: NS 1,000 ML IV SCH ×2 (04:28→18:18)
[2018-07-27 05:57] LABS: BASO % 0.2 % (0.0-1.0); EOS # 0.1 10^3/uL (0.0-0.50); EOS % 0.3 % (0.0-3.0); HEMATOCRIT 27.2 % (36.0-47.0); HEMOGLOBIN 8.8 g/dl (12.0-15.5); LYMPH # 1.2 10^3/uL (1.5-4.5); LYMPH % 6.5 % (24.0-44.0); MEAN CORPUSCULAR HEMOGLOBIN 25.2 pg (27.0-33.0); MEAN CORPUSCULAR HGB CONC 32.4 g/dl (32.0-36.5); MEAN CORPUSCULAR VOLUME 77.9 fl (80.0-96.0); MONO # 1.5 10^3/uL (0.0-0.8); MONO % 8.1 % (0.0-5.0); NEUTROPHILS # 15.3 10^3/uL (1.8-7.7); NEUTROPHILS % 84.3 % (36.0-66.0); PLATELET COUNT, AUTOMATED 517 10^3/uL (150-450); RED BLOOD COUNT 3.49 10^6/uL (4.00-5.40); WHITE BLOOD COUNT 18.1 10^3/uL (4.0-10.0)
[2018-07-27] MEDS: PIPERACILLIN/TAZOBACTAM SOD 2.25 GM in D5W MINI-BAG PLUS 50 ML IV SCH ×2 (06:00→18:18)
[2018-07-27] MEDS: HEPARIN SOD (PORCINE) 5000 UNITS/ML VIAL SC SCH ×3 (06:00→22:20)
[2018-07-27 06:14] LABS: CALCIUM LEVEL 8.9 MG/DL (8.8-10.2); CREATININE FOR GFR 1.44 MG/DL (0.55-1.30); GLOMERULAR FILTRATION RATE 37.3 (>32); POTASSIUM SERUM 4.4 MEQ/L (3.5-5.1)
[2018-07-27 08:00] VITALS: BP 88/68
--- NOTE | 2018-07-27 08:38 | REP ---
Portable chest x-ray: Single view. History: Elevated white blood cell count. Comparison study: June 24, 2018. Findings: The lungs are well inflated and clear. Pleural angles are sharp. Heart is mildly enlarged unchanged. There are old healed rib fractures on the right. No infiltrate is seen. Impression: No infiltrate seen. Mild cardiomegaly. Electronically Signed by Manuel Cardenas MD 07/27/2018 08:29 A
[2018-07-27] MEDS ORDERED: VANCOMYCIN HCL 1,000 MG, VIAL MATE ADAPTER 1 EACH in D5W 250 ML IV SCH (09:00)
[2018-07-27] MEDS: POTASSIUM CHLORIDE 10 MEQ SR TABLET PO SCH (09:00)
[2018-07-27] MEDS: SANTYL OINT 30GM TOP SCH (09:00)
[2018-07-27] MEDS: ROSUVASTATIN 10 MG TAB (CRESTOR) PO SCH (09:00)
[2018-07-27] MEDS: NYSTATIN 100,000 UNITS/GM TOPICAL PWD 15 GM TOP SCH ×2 (09:00→22:19)
[2018-07-27] MEDS: ASPIRIN 81 MG ENTERIC TAB PO SCH (09:01)
[2018-07-27] MEDS: FERROUS SULFATE 325MG TAB PO SCH (09:01)
[2018-07-27] MEDS: LACTOBACILLUS ACIDOPHILUS CAP (BACID) PO SCH (09:01)
[2018-07-27 10:48] LABS: AMORPHOUS SEDIMENT SMALL (NEGATIVE); APPEARANCE, URINE CLOUDY (CLEAR); BACTERIA, URINE AUTO 1+ (NEGATIVE); BILIRUBIN, URINE AUTO NEGATIVE (NEGATIVE); BLOOD, URINE BLOOD 2+ (NEGATIVE); COLOR, URINE YELLOW (YELLOW); GLUCOSE, URINE (UA) AUTO NEGATIVE (NEGATIVE); GRANULAR CAST, URINE AUTO 21 /LPF; KETONE, URINE AUTO NEGATIVE (NEGATIVE); LEUKOCYTE ESTERASE, URINE AUTO 3+ (NEGATIVE); MUCUS, URINE SMALL (NEGATIVE); NITRITE, URINE AUTO NEGATIVE (NEGATIVE); PROTEIN, URINE AUTO 2+ mg/dL (NEGATIVE); RBC, URINE AUTO 46 /HPF (0-3); SPECIFIC GRAVITY URINE AUTO 1.009 (1.002-1.035); SQUAMOUS EPITHELIAL CELL UR AU 4 /HPF (0-6); TRANSITIONAL EPITHELIAL AUTO 5 /HPF; UROBILINOGEN, URINE AUTO 0.2 mg/dL (0.0-2.0); WBC, URINE AUTO TNTC /HPF (0-3)
[2018-07-27 12:00] VITALS: BP 98/50
--- NOTE | 2018-07-27 14:54 | IPNPDOC ---
Text Note Date of Service The patient was seen on 07/27/18. NOTE Subjective: Patient is an 78-year-old female with a PMHx Obesity, CAD, HTN, DLP, Hypothyroidism, CKD3, Chronic LE edema, Recurrent cellulitis of LE, Stage IV decubitus ulcers, Hx of Bladder CA, who presents to the ER with pain on her R foot and difficulty with mobility. Patient has very poor compliance with therapy as an outpatient. She is bedbound at baseline. . She has stopped falling Dr. Omer because of disagreements. Previous admissions have revealed MRSA positive wounds. Patient has been admitted to hospitalist service for possible cellulitis of the right lower extremity. Wound care has been called on consultation. Patient was seen and examined at the bedside. Patient notes that there expressing pain of the shoulders, back, buttock and legs. Denies any chest pain, shortness breath or palpitations. Denies nausea, vomiting, abdominal pain, constipation, diarrhea. Patient has a Petit catheter put in place in the emergency room because of decubitus ulcers and poor mobility. Objective: Vitals (See below) General: Lying in bed, no acute distress, comfortable, AAOx3 HEENT: NC, AT CVS: RRR, +S1S2 Lungs: Fair air entry b/l, -w/r/r Abdomen: Soft, ND, NT Back: +Sacral decubitus ulcers (Stage IV) Extremities: +1 Edema bilaterally, Chronic ulcers bilaterally, R leg with dressing, - Calf tenderness Assessment and plan: Sepsis - likely 2/2 Right leg cellulitis / Stage IV decubitus ulcers; possibly 2/2 UTI - Presented to the ER with complaints of pain in the right lower extremity - Physical does reveal erythema, tenderness and warmth of the right lower extremity - Large sacral decubitus ulcer with large opening - WBC count improving; Lactic acidosis resolved - UA with equivocal signs of infection - Blood cultures 07/26: Pending; Urine cultures 07/26: Pending - c/w Vancomycin and Zosyn (Day #2) - Wound care on consult; will consult Surgery - case discussed with Dr. Landers Hyponatremia - likely 2/2 hypotonic hypovolemia - Has been improving - Will continue with IV fluid hydration CAD - ASA HTN - Has not been taking BP medications - Has been on the lower limits of normal - Will continue to monitor DLP - c/w Rosuvastatin Hypothyroidism - c/w Levothyroxine CKD3 - Cr baseline of 1.5-1.6 Chronic LE edema - c/w Wound care Hx of Bladder CA Anxiety - c/w Hydroxyzine Obesity - Complicating medical care Poor compliance - Has refused physical therapy to come to her home - Has stopped seeing wound care (Dr. Omer) because of disagreements - Will get PFS on board for likely sub-acute rehabilitation DVT prophylaxis - c/w Heparin VS,Fishbone, I+O VS, Fishbone, I+O Laboratory Tests 07/26/18 18:07 Red Blood Count 4.24, Mean Corpuscular Volume 79.5 L, Mean Corpuscular Hemoglobin 25.0 L, Mean Corpuscular Hemoglobin Concent 31.5 L, Red Cell Distribution Width 18.1 H, Neutrophils (%) (Auto) 83.4 H, Lymphocytes (%) (Auto) 6.4 L, Monocytes (%) (Auto) 8.6 H, Eosinophils (%) (Auto) 0.2, Basophils (%) (Auto) 0.4, Neutrophils # (Auto) 18.1 H, Lymphocytes # (Auto) 1.4 L, Monocytes # (Auto) 1.9 H, Eosinophils # (Auto) 0.0, Basophils # (Auto) 0.1, Calcium Level 10.1 07/27/18 05:45 Red Blood Count 3.49 L, Mean Corpuscular Volume 77.9 L, Mean Corpuscular Hemoglobin 25.2 L, Mean Corpuscular Hemoglobin Concent 32.4, Red Cell Distribution Width 17.8 H, Neutrophils (%) (Auto) 84.3 H, Lymphocytes (%) (Auto) 6.5 L, Monocytes (%) (Auto) 8.1 H, Eosinophils (%) (Auto) 0.3, Basophils (%) (A uto) 0.2, Neutrophils # (Auto) 15.3 H, Lymphocytes # (Auto) 1.2 L, Monocytes # (Auto) 1.5 H, Eosinophils # (Auto) 0.1, Basophils # (Auto) 0.0, Calcium Level 8.9 Vital Signs Date Time Temp Pulse Resp B/P (MAP) Pulse Ox O2 Delivery O2 Flow Rate FiO2 07/27/18 13:45 16 92/54 07/27/18 08:00 98.7 88 95 Room Air I&O- Last 24 Hours up to 6 AM 07/27/18 06:00 Intake Total 1530 ml Output Total 300 ml Balance 1230 ml MARISOL BLACKMAN MD Jul 27, 2018 14:54
[2018-07-27 16:00] VITALS: BP 118/59
[2018-07-27 20:00] VITALS: BP 112/56
[2018-07-27] MEDS: MAGNESIUM GLUCONATE 500 MG TAB PO SCH (22:20)
[2018-07-27] MEDS: LEVOTHYROXINE 125MCG TABLET (0.125MG) PO SCH (22:20)
[2018-07-28] VITALS (10 sets, daily range): BP systolic 78–134; BP diastolic 45–66
[2018-07-28] MEDS: MORPHINE 4 MG/ML 1ML VIAL/SYRINGE (J2270) IV PRN ×2 (01:39→08:38)
[2018-07-28] MEDS: NS 1,000 ML IV SCH (03:30)
[2018-07-28] MEDS: PIPERACILLIN/TAZOBACTAM SOD 2.25 GM in D5W MINI-BAG PLUS 50 ML IV SCH (06:23)
[2018-07-28] MEDS: HEPARIN SOD (PORCINE) 5000 UNITS/ML VIAL SC SCH ×3 (06:23→21:31)
[2018-07-28 08:21] LABS: BASO % 0.2 % (0.0-1.0); EOS # 0.3 10^3/uL (0.0-0.50); EOS % 2.4 % (0.0-3.0); HEMATOCRIT 25.3 % (36.0-47.0); HEMOGLOBIN 8.1 g/dl (12.0-15.5); LYMPH # 1.3 10^3/uL (1.5-4.5); LYMPH % 9.8 % (24.0-44.0); MEAN CORPUSCULAR VOLUME 78.1 fl (80.0-96.0); MONO # 1.3 10^3/uL (0.0-0.8); NEUTROPHILS # 10.1 10^3/uL (1.8-7.7); NEUTROPHILS % 77.1 % (36.0-66.0); PLATELET COUNT, AUTOMATED 490 10^3/uL (150-450); RED BLOOD COUNT 3.24 10^6/uL (4.00-5.40); WHITE BLOOD COUNT 13.1 10^3/uL (4.0-10.0)
[2018-07-28] MEDS: NYSTATIN 100,000 UNITS/GM TOPICAL PWD 15 GM TOP SCH ×2 (08:36→21:32)
[2018-07-28] MEDS: ONDANSETRON 4MG/2ML VIAL (J2405) IV SCH (08:37)
[2018-07-28] MEDS: ROSUVASTATIN 10 MG TAB (CRESTOR) PO SCH (08:37)
[2018-07-28] MEDS: LACTOBACILLUS ACIDOPHILUS CAP (BACID) PO SCH (08:37)
[2018-07-28] MEDS: ASPIRIN 81 MG ENTERIC TAB PO SCH (08:38)
[2018-07-28] MEDS: FERROUS SULFATE 325MG TAB PO SCH (08:38)
[2018-07-28] MEDS: POTASSIUM CHLORIDE 10 MEQ SR TABLET PO SCH (08:39)
[2018-07-28 08:51] LABS: C REACTIVE PROTEIN QUANTITATIV 21.7 MG/DL (0.00-0.30); CALCIUM LEVEL 8.4 MG/DL (8.8-10.2); CREATININE FOR GFR 1.26 MG/DL (0.55-1.30); GLOMERULAR FILTRATION RATE 43.5 (>32); MAGNESIUM LEVEL 1.7 MG/DL (1.8-2.4); POTASSIUM SERUM 4.9 MEQ/L (3.5-5.1)
[2018-07-28] MEDS ORDERED: MAGNESIUM SULFATE 1 GM/100 ML D5W BAG (10MG/ML) (J3475) As Ordered ONE (09:51)
--- NOTE | 2018-07-28 09:54 | IPNPDOC ---
Text Note Date of Service The patient was seen on 07/28/18. NOTE No acute events overnight. Denies nausea, emesis, or fevers. Plan is for debr idement and wound vac placement in the OR this am. No changes to H+P. Consent is signed. VSSAF NAD labs below A) 78y/o female with stage 3-4 saqcral decubitus ulcer. P) NPO OR this am for debridement and vac placement. Quincy Landers DO VS,Lidya, I+O VS, Lidya, I+O Laboratory Tests 07/28/18 07:46 Red Blood Count 3.24 L, Mean Corpuscular Volume 78.1 L, Mean Corpuscular Hemoglobin 25.0 L, Mean Corpuscular Hemoglobin Concent 32.0, Red Cell D istribution Width 18.1 H, Neutrophils (%) (Auto) 77.1 H, Lymphocytes (%) (Auto) 9.8 L, Monocytes (%) (Auto) 10.0 H, Eosinophils (%) (Auto) 2.4, Basophils (%) (Auto) 0.2, Neutrophils # (Auto) 10.1 H, Lymphocytes # (Auto) 1.3 L, Monocytes # (Auto) 1.3 H, Eosinophils # (Auto) 0.3, Basophils # (Auto) 0.0, Calcium Level 8.4 L Vital Signs Date Time Temp Pulse Resp B/P (MAP) Pulse Ox O2 Delivery O2 Flow Rate FiO2 07/28/18 08:38 97.5 95 22 125/55 95 Room Air I&O- Last 24 Hours up to 6 AM 07/28/18 05:59 Intake Total 1800 ml Output Total 1600 ml Balance 200 ml JOVANNI LANDERS DO Jul 28, 2018 09:54
[2018-07-28] MEDS ORDERED: MAG SULF 1GM/100ML (MAG RUN) 1 GM in APPROPRIATE DILUENT 1 EA IV ONE ×2 (10:00→15:00)
[2018-07-28] MEDS ORDERED: MIDAZOLAM INJ 2 MG/2 ML VIAL (J2250) As Ordered ONE (10:27)
[2018-07-28] MEDS ORDERED: PROPOFOL 200 MG/20 ML VIAL As Ordered ONE (10:27)
[2018-07-28] MEDS ORDERED: fentaNYL 100 MCG/2 ML INJECTION (J3010) As Ordered ONE ×2 (10:27→12:13)
[2018-07-28] MEDS ORDERED: LIDOCAINE 2% INJ 100 MG/5 ML SDV (FOR ANES.) As Ordered ONE (10:27)
[2018-07-28] MEDS ORDERED: KETAMINE HCL 200 MG/20 ML VIAL As Ordered ONE (11:15)
[2018-07-28] MEDS ORDERED: BUPIVACAINE/EPIN 0.5% 30 ML VIAL As Ordered ONE (11:30)
[2018-07-28] MEDS ORDERED: PERCOCET 5MG/325MG TAB As Ordered ONE (12:13)
[2018-07-28] MEDS: fentaNYL 100 MCG/2 ML INJECTION (J3010) IV PRN ×4 (12:27→12:46)
[2018-07-28] MEDS ORDERED: ONDANSETRON 4MG/2ML VIAL (J2405) IV PRN (12:30)
[2018-07-28] MEDS ORDERED: HYDROMORPHONE HCL 0.5 MG/ 0.5 ML SYRINGE (J1170 PER 1) IV PRN (12:30)
[2018-07-28] MEDS ORDERED: PERCOCET 5MG/325MG TAB PO PRN (12:30)
[2018-07-28] MEDS ORDERED: LR 1,000 ML IV SCH (12:30)
--- NOTE | 2018-07-28 13:45 | IPN ---
DATE OF SERVICE: 07/26/2018 SUBJECTIVE: The patient was seen and examined when she came to the progressive care unit (PCU) floor from the emergency department (ED). When nursing was doing initial assessment for admission, they noted multiple wounds that they wanted me to put eyes on and to measure. The patient had a significant decubitus stage IV to unstageable decubitus ulcer on the buttocks, which was measured 5 cm in width, 6 cm in length, and relatively 1-2 cm in depth. It had a purulent drainage of foul odor and smell. Alginate dressing was placed in the wound and was covered with a foam dressing. Her second wound that was noted was on her right lateral calf. It was open, had bloody drainage. There was no increased erythema. The length was 13.5 cm. Width was 1.5 cm. The surrounding tissue appeared shiny but dry. No increased erythema or warmth. It was covered with alginate dressing and a foam dressing was placed over that, as well. Her third wound was on her right big toe. It was necrotic in appearance with a length of 5 cm with a width of 3.0 cm and a depth of possible 0.5 cm. Surrounding tissue, as well, was dry but no increased erythema or warmth, as well, and there was no dressing applied of this wound. All of these wounds were assessed at bedside, and they were all present at admission. A wound care consult has been placed. The patient does have a chronic Petit for her stage III or stage IV/unstageable pressure ulcer on her buttocks. The day team possibly will consider surgical consult to assess the decubitus ulcer. My faculty preceptor for this patient encounter was physically present during the encounter and was fully available. All aspects of the patient interview, examination, medical decision-making process, and medical care plan development were reviewed and approved by the faculty preceptor. The faculty preceptor is aware and concurs with the plan as stated in the body of this note and will attest to such by his/her cosignature. CARMEN
--- NOTE | 2018-07-28 14:06 | IPNPDOC ---
Text Note Date of Service The patient was seen on 07/28/18. NOTE Subjective: Patient is an 78-year-old female with a PMHx Obesity, CAD, HTN, DLP, Hypothyroidism, CKD3, Chronic LE edema, Recurrent cellulitis of LE, Stage IV decubitus ulcers, Hx of Bladder CA, who presents to the ER with pain on her R foot and difficulty with mobility. Patient has very poor compliance with therapy as an outpatient. She is bedbound at baseline. . She has stopped falling Dr. Omer because of disagreements. Previous admissions have revealed MRSA positive wounds. Patient has been admitted to hospitalist service for possible cellulitis of the right lower extremity. Wound care has been called on consultation. Patient was seen and examined at the bedside. Patient has no new complaints today. Still notes chronic pain in her shoulders, back, buttock and legs. She denies any CP, SOB or palpitations. I have advised her that she will need to reposition herself to help improve healing. She noted that she will try. I have reiterated to her that there will be very poor to no wound improvement if she fails to remove pressure from the area. Objective: Vitals (See below) General: Lying in bed, no acute distress, comfortable, AAOx3 HEENT: NC, AT CVS: RRR, +S1S2 Lungs: Fair air entry b/l, no evidence of wheezing, rales or rhonchi Abdomen: Soft, Non-distended and non-tender Back: +Sacral decubitus ulcers (Stage IV) Extremities: +1 Edema bilaterally, Chronic ulcers bilaterally, R leg with dressing, - Calf tenderness Assessment and plan: Sepsis - likely 2/2 Right leg cellulitis / Stage IV decubitus ulcers; possibly 2/2 UTI - Presented to the ER with complaints of pain in the right lower extremity - Physical does reveal erythema, tenderness and warmth of the right lower extremity - improving - Large sacral decubitus ulcer with large opening - WBC count improving; Lactic acidosis resolved - UA with equivocal signs of infection - Blood cultures 07/26: no growth at 24 hours; Urine cultures 07/26: Yeast like organisms - c/w Vancomycin and Zosyn (Day #3) - Wound care and Surgery on consult; will be going to the OR today for debridement s/p Hyponatremia - likely 2/2 hypotonic hypovolemia - Will DC IV fluid hydration CAD - ASA HTN - Has not been taking BP medications - Will continue to monitor DLP - c/w Rosuvastatin Hypothyroidism - c/w Levothyroxine CKD3 - Cr baseline of 1.5-1.6 - Better than baseline Chronic LE edema - c/w Wound care Hx of Bladder CA Anxiety - c/w Hydroxyzine Obesity - Complicating medical care Poor compliance - Has refused physical therapy to come to her home - Has stopped seeing wound care (Dr. Omer) because of disagreements - Will get PFS on board for likely sub-acute rehabilitation DVT prophylaxis - c/w Heparin Disposition: - Awaiting clinical improvement VS,Fishbone, I+O VS, Fishbone, I+O Laboratory Tests 07/28/18 07:46 Red Blood Count 3.24 L, Mean Corpuscular Volume 78.1 L, Mean Corpuscular Hemoglobin 25.0 L, Mean Corpuscular Hemoglobin Concent 32.0, Red Cell Distribution Width 18.1 H, Neutrophils (%) (Auto) 77.1 H, Lymphocytes (%) (Auto) 9.8 L, Monocytes (%) (Auto) 10.0 H, Eosinophils (%) (Auto) 2.4, Basophils (%) (Auto) 0.2, Neutrophils # (Auto) 10.1 H, Lymphocytes # (Auto) 1.3 L, Monocytes # (Auto) 1.3 H, Eosinophils # (Auto) 0.3, Basophils # (Auto) 0.0, Calcium Level 8.4 L Vital Signs Date Time Temp Pulse Resp B/P (MAP) Pulse Ox O2 Delivery O2 Flow Rate FiO2 07/28/18 12:46 16 07/28/18 12:45 73 109/53 (71) 98 Room Air 07/28/18 12:30 97.6 I&O- Last 24 Hours up to 6 AM 07/28/18 05:59 Intake Total 1800 ml Output Total 1600 ml Balance 200 ml MARISOL BLACKMAN MD Jul 28, 2018 14:06
--- NOTE | 2018-07-28 15:48 | CR ---
DATE OF CONSULTATION: 07/27/2018 REASON FOR CONSULTATION: Sacral decubitus ulcer debridement. HISTORY OF PRESENT ILLNESS: This is an 78y/o pt. with a complicated past medical history. She has had recurrent hospitalizations for cellulitis of the lower extremity. She presents with difficulty in mobility and pain in her right foot. On admission she was complaining of pain pretty much throughout her entire body. She has been refusing care at home with physical therapy and wound care, because she does not like the wound care physician. She has large open wounds on the right lower extremity. They are very painful. She also has a very large sacral decubitus ulcer. She has not had any treatment for this in the past. She claims she has only had it for a few weeks. She has not had any treatment for this with her wound care doctor, because she refuses to see him. Currently she appeared to be septic in the emergency room (ER), elevated white count, recent methicillin-resistant Staphylococcus aureus (MRSA) positive on her last admission. Currently she is afebrile and stable. She is complaining of pain to her belly, her back, her knees, her feet, and I was asked to see her for this decubitus ulcer. PAST MEDICAL HISTORY: 1. Obesity. 2. Chronic kidney disease. 3. Hypothyroidism. 4. Hyperlipidemia. 5. Lower extremity edema. 6. Recurrent cellulitis, lower extremities. 7. Hypertension. 8. Coronary artery disease. 9. Nephrolithiasis. 10. Bladder cancer. PAST SURGICAL HISTORY: 1. Cystoscopy. 2. Lumbar laminectomy. 3. Hysterectomy. 4. Appendectomy. 5. Left knee surgery. ALLERGIES: Multiple. Please see medication reconciliation. FAMILY HISTORY: Noncontributory. SOCIAL HISTORY: Denies drug, alcohol, tobacco abuse. MEDICATIONS: Please see medication reconciliation. REVIEW OF SYSTEMS: Pertinent positives and negatives stated in the history of present illness (HPI). PHYSICAL EXAMINATION: GENERAL: Alert and oriented times three. No acute distress. VITAL SIGNS: Temperature 98.4, pulse 93, respirations 20, blood pressure 98/50, pulse oximetry 95% in room air. HEENT: Pupils equally round and react to light and accommodation. HEART: S1, S2, regular rate and rhythm. LUNGS: Clear to auscultation bilaterally. ABDOMEN: Soft, obese, nontender, nondistended. EXTREMITIES: Bilateral lower extremity pitting edema. There is large eschar over the right medial foot. No signs of inflammation or erythema around it. No active bleeding. There are multiple small punctate eschar lesions proximal to that as well along the medial and dorsal aspects of the right foot. SKIN: On the lower back and perineal and gluteal areas there are multiple stage I and stage II superficial ulcers of varying sizes. In the middle right over top of the sacrum, there is a stage III-IV unstageable ulcer at least 4-5 cm in depth with rosario slough tissue throughout the entire base of the wound. Unable at this point to determine exactly what stage it is. Also has a very foul odor to it. LABORATORY DATA: White count 18.1, hemoglobin 8.8, platelets 517. Potassium 4.4, creatinine 1.44, glucose 117, lactic acid 1.2. ASSESSMENT AND PLAN: The patient is an 78-year-old female with large, unstable sacral decubitus ulcer to at least stage III-IV. Also has multiple other ulcers surrounding this area. Recommendation for wound care nurse was to do a debridement and then wound vacuum-assisted closure (VAC) placement. I discussed that in detail with the patient and will plan to get her on the operating room (OR) schedule for tomorrow afternoon for sharp debridement with wound VAC placement all in the operating room, because she can tolerate this being done at the bedside. Risks of the procedure include, but are not limited to, bleeding, infection, damage to surrounding structures, need for further surgery. She understands and signed consent, and we will plan for procedure tomorrow. CARMEN
[2018-07-28] MEDS: SANTYL OINT 30GM TOP SCH (17:00)
[2018-07-28] MEDS: PERCOCET 5MG/325MG TAB PO PRN (17:33)
[2018-07-28] MEDS: ONDANSETRON 4 MG TAB (S0181) PO PRN (17:33)
[2018-07-28] MEDS: LEVOTHYROXINE 125MCG TABLET (0.125MG) PO SCH (21:31)
[2018-07-28] MEDS: MAGNESIUM GLUCONATE 500 MG TAB PO SCH (21:31)
[2018-07-28] MEDS: LINEZOLID 600MG TABLET (ZYVOX) PO SCH (21:31)
[2018-07-28] MEDS: CEFDINIR 300 MG CAP (OMNICEF) PO SCH (21:34)
[2018-07-29] VITALS (7 sets, daily range): BP systolic 96–143; BP diastolic 46–63
[2018-07-29] MEDS: PERCOCET 5MG/325MG TAB PO PRN (02:57)
[2018-07-29] MEDS: HEPARIN SOD (PORCINE) 5000 UNITS/ML VIAL SC SCH ×3 (05:33→21:00)
[2018-07-29 06:16] LABS: BASO # 0.1 10^3/uL (0.0-0.2); BASO % 0.6 % (0.0-1.0); EOS # 0.4 10^3/uL (0.0-0.50); EOS % 3.3 % (0.0-3.0); HEMOGLOBIN 9.5 g/dl (12.0-15.5); LYMPH # 1.4 10^3/uL (1.5-4.5); LYMPH % 10.8 % (24.0-44.0); MEAN CORPUSCULAR HEMOGLOBIN 25.3 pg (27.0-33.0); MEAN CORPUSCULAR HGB CONC 31.7 g/dl (32.0-36.5); MEAN CORPUSCULAR VOLUME 79.8 fl (80.0-96.0); MONO # 1.3 10^3/uL (0.0-0.8); MONO % 10.6 % (0.0-5.0); NEUTROPHILS # 9.2 10^3/uL (1.8-7.7); NEUTROPHILS % 73.8 % (36.0-66.0); PLATELET COUNT, AUTOMATED 512 10^3/uL (150-450); RED BLOOD COUNT 3.76 10^6/uL (4.00-5.40); WHITE BLOOD COUNT 12.5 10^3/uL (4.0-10.0)
[2018-07-29 07:09] LABS: C REACTIVE PROTEIN QUANTITATIV 21.5 MG/DL (0.00-0.30); CALCIUM LEVEL 8.3 MG/DL (8.8-10.2); CREATININE FOR GFR 1.14 MG/DL (0.55-1.30); GLOMERULAR FILTRATION RATE 48.8 (>32); MAGNESIUM LEVEL 2.5 MG/DL (1.8-2.4); POTASSIUM SERUM 4.7 MEQ/L (3.5-5.1)
--- NOTE | 2018-07-29 08:04 | IPNPDOC ---
Text Note Date of Service The patient was seen on 07/29/18. NOTE No acute events overnight. She is tolerating diet. Denies nausea, emesis, or fevers. Wound VAC is in place and is functioning appropriately without any leaks, and has minimal drainage in the tank. VSSAF NAD wound vac in place over the sacrum. labs - below A) 78y/o female with stage 4 sacral ulcer POD#1 s/p sharp excisional debridement and wound vac placement P) recommend rehab placement vs. outpatient wound care with Dr. Omer. inpatient vac changes can be completed by nursing or the wound care nurse. will follow as needed. Quincy Landers DO VS,Fishbone, I+O VS, Fishbone, I+O Laboratory Tests 07/29/18 05:41 Red Blood Count 3.76 L, Mean Corpuscular Volume 79.8 L, Mean Corpuscular Hemoglobin 25.3 L, Mean Corpuscular Hemoglobin Concent 31.7 L, Red Cell Distribution Width 18.1 H, Neutrophils (%) (Auto) 73.8 H, Lymphocytes (%) (Auto) 10.8 L, Monocytes (%) (Auto) 10.6 H, Eosinophils (%) (Auto) 3.3 H, Basophils (%) (Auto) 0.6, Neutrophils # (Auto) 9.2 H, Lymphocytes # (Auto) 1.4 L, Monocytes # (Auto) 1.3 H, Eosinophils # (Auto) 0.4, Basophils # (Auto) 0.1, Calcium Level 8.3 L Vital Signs Date Time Temp Pulse Resp B/P (MAP) Pulse Ox O2 Delivery O2 Flow Rate FiO2 07/29/18 04:00 97.6 75 16 96/46 (63) 96 Room Air I&O- Last 24 Hours up to 6 AM 07/29/18 05:59 Intake Total 1625 ml Output Total 1655 ml Balance -30 ml JOVANNI LANDERS DO Jul 29, 2018 08:04
[2018-07-29] MEDS: POTASSIUM CHLORIDE 10 MEQ SR TABLET PO SCH (08:55)
[2018-07-29] MEDS: NYSTATIN 100,000 UNITS/GM TOPICAL PWD 15 GM TOP SCH ×2 (08:55→21:03)
[2018-07-29] MEDS: LACTOBACILLUS ACIDOPHILUS CAP (BACID) PO SCH (08:56)
[2018-07-29] MEDS: FERROUS SULFATE 325MG TAB PO SCH (08:56)
[2018-07-29] MEDS: LINEZOLID 600MG TABLET (ZYVOX) PO SCH (08:56)
[2018-07-29] MEDS: ASPIRIN 81 MG ENTERIC TAB PO SCH (08:56)
[2018-07-29] MEDS: SANTYL OINT 30GM TOP SCH (08:56)
[2018-07-29] MEDS: ROSUVASTATIN 10 MG TAB (CRESTOR) PO SCH (08:56)
[2018-07-29] MEDS: CEFDINIR 300 MG CAP (OMNICEF) PO SCH (08:59)
--- NOTE | 2018-07-29 10:21 | RO ---
DATE OF PROCEDURE: 07/28/2018 PREOPERATIVE DIAGNOSIS: Unstageable sacral decubitus ulcer. POSTOPERATIVE DIAGNOSIS: Unstageable sacral decubitus ulcer. PROCEDURE: Sharp excisional debridement of skin, subcutaneous tissue, muscle and fascia for sacral decubitus ulcer with wound vacuum-assisted closure (VAC) placement. SURGEON: Dr. Landers COPPER TAPPER: None. ANESTHESIA: Monitored anesthesia care (MAC). ESTIMATED BLOOD LOSS (EBL): 15. COMPLICATIONS: None. INDICATION FOR PROCEDURE: Patient is an 78-year-old female, who presents with a large decubitus ulcer that has a lot of slough tissue and is currently unstageable. However, at least a stage III-IV ulcer. Recommendation is to proceed with sharp excisional debridement with wound VAC placement. Risks and benefits of procedure not limited but including bleeding, infection, damage to surrounding structures, need for further surgery were discussed in detail with the patient. Informed consent was obtained and procedure was planned. DESCRIPTION OF PROCEDURE: Patient was brought back to operating room #2 after sufficient sedation. She was placed in left lateral decubitus position. Presacral area was sterilely prepped and draped with Betadine. Next, time-out was done to confirm proper patient and proper procedure. Following that using a #15 blade scalpel I was able to sharply debride skin, subcutaneous tissue, muscle and the presacral fascia all the way to the level of the sacrum. Once this was completed, I then used a curette to curette all of the edges in the base of the wound to remove more of the slough tissue. Once this was all completed, it was irrigated with saline. Hemostasis was good. There was good bleeding tissue all throughout the peripheral of the wound. Next, a white sponge was first placed in the base of wound, followed by a black sponge. Wound VAC was then applied, brought out over the patient's right hip and connected to suction. Suction was adequate without any leaks. The patient was then awakened from anesthesia and sent to postanesthesia care unit (PACU) in stable condition. CARMEN
--- NOTE | 2018-07-29 10:25 | IPNPDOC ---
Text Note Date of Service The patient was seen on 07/29/18. NOTE Subjective: Patient is an 78-year-old female with a PMHx Obesity, CAD, HTN, DLP, Hypothyroidism, CKD3, Chronic LE edema, Recurrent cellulitis of LE, Stage IV decubitus ulcers, Hx of Bladder CA, who presents to the ER with pain on her R foot and difficulty with mobility. Patient has very poor compliance with therapy as an outpatient. She is bedbound at baseline. . She has stopped falling Dr. Omer because of disagreements. Previous admissions have revealed MRSA positive wounds. Patient has been admitted to hospitalist service for possible cellulitis of the right lower extremity. Wound care has been called on consultation. Patient was seen and examined at the bedside. Patient is reporting again pain diffusely throughout her body. Has reported a single episode of vomiting this morning. Denies any chest pain or palpitations. Is trying to comply with positioning, however, has refused multiple times. Objective: Vitals (See below) General: Lying in bed, no acute distress, comfortable, AAOx3 HEENT: NC, AT CVS: RRR, +S1S2 Lungs: Fair air entry b/l, also completed our reveal any rhonchi, rales or wheezing Abdomen: Soft, Non-distended and non-tender Back: +Sacral decubitus ulcers (Stage IV) - wound vac in place Extremities: +1 Edema bilaterally, Chronic ulcers bilaterally, R leg with dressing, - Calf tenderness Assessment and plan: Sepsis - likely 2/2 Right leg cellulitis / Stage IV decubitus ulcers, possibly 2/2 osteomyelitis of sacrum ; possibly 2/2 UTI - Presented to the ER with complaints of pain in the right lower extremity - Physical does reveal erythema, tenderness and warmth of the right lower extremity - improving - Sacral decubitus ulcer with wound vac in place - WBC count improving; Lactic acidosis resolved; CRP remains relatively unchanged - UA with equivocal signs of infection - Blood cultures 07/26: no growth at 24 hours; Urine cultures 07/26: Yeast like organisms - c/w Vancomycin and Zosyn (Day #4); Will get PICC line for likely assurance engineer antibiotics - s/p Debridement on 07/28/18 - Wound care and Surgery on consult; appreciate their input - Will consult infectious disease Hyponatremia - likely 2/2 hypotonic hypovolemia - s/p IV fluid hydration CAD - ASA HTN - Has not been taking BP medications - Will continue to monitor DLP - c/w Rosuvastatin Hypothyroidism - c/w Levothyroxine CKD3 - Cr baseline of 1.5-1.6 - Better than baseline Chronic LE edema - c/w Wound care Hx of Bladder CA Anxiety - c/w Hydroxyzine Obesity - Complicating medical care Poor compliance - Has refused physical therapy to come to her home - Has stopped seeing wound care (Dr. Omer) because of disagreements - PFS on board for likely sub-acute rehabilitation / wound care / prolonged antibiotics DVT prophylaxis - c/w Heparin Disposition: - Awaiting clinical improvement VS,Fishbone, I+O VS, Fishbone, I+O Laboratory Tests 07/29/18 05:41 Red Blood Count 3.76 L, Mean Corpuscular Volume 79.8 L, Mean Corpuscular Hemoglobin 25.3 L, Mean Corpuscular Hemoglobin Concent 31.7 L, Red Cell Distribution Width 18.1 H, Neutrophils (%) (Auto) 73.8 H, Lymphocytes (%) (Auto) 10.8 L, Monocytes (%) (Auto) 10.6 H, Eosinophils (%) (Auto) 3.3 H, Basophils (%) (Auto) 0.6, Neutrophils # (Auto) 9.2 H, Lymphocytes # (Auto) 1.4 L, Monocytes # (Auto) 1.3 H, Eosinophils # (Auto) 0.4, Basophils # (Auto) 0.1, Calcium Level 8.3 L Vital Signs Date Time Temp Pulse Resp B/P (MAP) Pulse Ox O2 Delivery O2 Flow Rate FiO2 07/29/18 08:00 97.8 72 19 100/56 (71) 97 Room Air I&O- Last 24 Hours up to 6 AM 07/29/18 06:00 Intake Total 1625 ml Output Total 1930 ml Balance -305 ml MARISOL BLACKMAN MD Jul 29, 2018 10:25
[2018-07-29] MEDS ORDERED: VANCOMYCIN HCL 1,000 MG, VIAL MATE ADAPTER 1 EACH in D5W 250 ML IV SCH (11:00)
[2018-07-29] MEDS ORDERED: PIPERACILLIN/TAZOBACTAM SOD 2.25 GM in D5W MINI-BAG PLUS 50 ML IV SCH (12:00)
[2018-07-29] MEDS ORDERED: LIDOCAINE 1% MDV 20ML VIAL As Ordered ONE (14:16)
[2018-07-29] MEDS: MORPHINE 4 MG/ML 1ML VIAL/SYRINGE (J2270) IV PRN ×2 (15:58→21:02)
[2018-07-29] MEDS: PIPERACILLIN/TAZOBACTAM SOD 2.25 GM in D5W MINI-BAG PLUS 50 ML IV SCH ×2 (17:14→23:50)
[2018-07-29] MEDS: VANCOMYCIN HCL 1,000 MG, VIAL MATE ADAPTER 1 EACH in D5W 250 ML IV SCH (18:03)
--- NOTE | 2018-07-29 18:09 | REP ---
Procedure: PICC line insertion with Randa The procedure was performed under the direct supervision of Dr. Cardenas. The risks and benefits of the procedure were explained to the patient and informed consent was obtained. The right basilic vein was localized using ultrasound guidance. The skin was prepped and draped in a sterile fashion. 2% lidocaine was used as a local anesthetic. Using ultrasound guidance the basilic vein was cannulated and a 0.018 guidewire was inserted and advanced to the SVC using fluoroscopic guidance. The needle was removed and a 5.5 [place]ian dilator and peel-away sheath was inserted over the guide wire. A 5.5 [place] dual lumen catheter was cut to length of 40 cm. The dilator was removed and the catheter was inserted over the guide wire with the tip ending in the SVC. The peel-away sheath was removed and the catheter was flushed with heparinized saline as per Hospital protocol. The catheter was affixed to the skin and a sterile dressing was applied. The patient tolerated the procedure well and there were no immediate complications. 0.1 minutes of fluoro time was utilized for this procedure. Reviewed by DIAN Dunham 07/29/2018 04:14 P Electronically Signed by Manuel Cardenas MD 07/29/2018 05:59 P
[2018-07-29] MEDS: LEVOTHYROXINE 125MCG TABLET (0.125MG) PO SCH (21:00)
[2018-07-29] MEDS: MAGNESIUM GLUCONATE 500 MG TAB PO SCH (21:00)
[2018-07-30] MEDS: MORPHINE 4 MG/ML 1ML VIAL/SYRINGE (J2270) IV PRN ×3 (01:05→09:32)
[2018-07-30] MEDS: SODIUM CHLORIDE 0.9% INJ 10 ML SYR IV SCH ×2 (01:07→18:25)
[2018-07-30 04:00] VITALS: BP 122/58
[2018-07-30] MEDS: PIPERACILLIN/TAZOBACTAM SOD 2.25 GM in D5W MINI-BAG PLUS 50 ML IV SCH ×4 (05:07→21:57)
[2018-07-30] MEDS: SODIUM CHLORIDE 0.9% INJ 10 ML SYR IV PRN (05:07)
[2018-07-30] MEDS: HEPARIN SOD (PORCINE) 5000 UNITS/ML VIAL SC SCH ×3 (05:08→21:56)
[2018-07-30 05:40] LABS: BASO # 0.1 10^3/uL (0.0-0.2); BASO % 0.5 % (0.0-1.0); EOS # 0.4 10^3/uL (0.0-0.50); EOS % 3.9 % (0.0-3.0); HEMATOCRIT 25.9 % (36.0-47.0); HEMOGLOBIN 8.3 g/dl (12.0-15.5); LYMPH # 1.3 10^3/uL (1.5-4.5); LYMPH % 13.5 % (24.0-44.0); MEAN CORPUSCULAR HEMOGLOBIN 24.9 pg (27.0-33.0); MEAN CORPUSCULAR VOLUME 77.8 fl (80.0-96.0); MONO % 10.3 % (0.0-5.0); NEUTROPHILS % 70.9 % (36.0-66.0); PLATELET COUNT, AUTOMATED 498 10^3/uL (150-450); RED BLOOD COUNT 3.33 10^6/uL (4.00-5.40); WHITE BLOOD COUNT 9.8 10^3/uL (4.0-10.0)
[2018-07-30 06:07] LABS: C REACTIVE PROTEIN QUANTITATIV 18.8 MG/DL (0.00-0.30); CALCIUM LEVEL 8.2 MG/DL (8.8-10.2); CREATININE FOR GFR 1.02 MG/DL (0.55-1.30); GLOMERULAR FILTRATION RATE 55.5 (>32); MAGNESIUM LEVEL 2.1 MG/DL (1.8-2.4); POTASSIUM SERUM 4.6 MEQ/L (3.5-5.1)
[2018-07-30 06:09] LABS: ERYTHROCYTE SEDIMENTATION RATE 128 mm/hr (0-30)
[2018-07-30 08:00] VITALS: BP 130/60
[2018-07-30] MEDS: FERROUS SULFATE 325MG TAB PO SCH (09:42)
[2018-07-30] MEDS: ASPIRIN 81 MG ENTERIC TAB PO SCH (09:42)
[2018-07-30] MEDS: LACTOBACILLUS ACIDOPHILUS CAP (BACID) PO SCH (09:43)
[2018-07-30] MEDS: ROSUVASTATIN 10 MG TAB (CRESTOR) PO SCH (09:43)
[2018-07-30] MEDS: NYSTATIN 100,000 UNITS/GM TOPICAL PWD 15 GM TOP SCH ×2 (09:43→20:15)
[2018-07-30] MEDS: SANTYL OINT 30GM TOP SCH (09:43)
[2018-07-30] MEDS: POTASSIUM CHLORIDE 10 MEQ SR TABLET PO SCH (09:43)
[2018-07-30] MEDS: PERCOCET 5MG/325MG TAB PO PRN ×2 (10:13→20:14)
--- NOTE | 2018-07-30 11:57 | IPNPDOC ---
Text Note Date of Service The patient was seen on 07/30/18. NOTE Subjective: Patient is an 78-year-old female with a PMHx Obesity, CAD, HTN, DLP, Hypothyroidism, CKD3, Chronic LE edema, Recurrent cellulitis of LE, Stage IV decubitus ulcers, Hx of Bladder CA, who presents to the ER with pain on her R foot and difficulty with mobility. Patient has very poor compliance with therapy as an outpatient. She is bedbound at baseline. . She has stopped falling Dr. Omer because of disagreements. Previous admissions have revealed MRSA positive wounds. Patient has been admitted to hospitalist service for possible cellulitis of the right lower extremity. Wound care has been called on consultation. Patient was seen and examined at the bedside. . Currently she notes that she's feeling better today. She denies any chest pain, short of breath or palpitations. Notes that her pain is relatively better controlled. Denies any constipation, diarrhea. Has had a PICC line placed yesterday. Objective: Vitals (See below) General: Lying in bed, no acute distress, comfortable, AAOx3 HEENT: NC, AT CVS: RRR, +S1S2 Lungs: Fair air entry b/l, there does not appear to be auscultated evidence of wheezing, rales or rhonchi Abdomen: Soft, Non-distended and non-tender Back: +Sacral decubitus ulcers (Stage IV) - Wound vac recently changed Extremities: +1 Edema bilaterally, Chronic ulcers bilaterally, R leg with dressing, - Calf tenderness Assessment and plan: Sepsis - likely 2/2 Right leg cellulitis / Stage IV decubitus ulcers, possibly 2/2 osteomyelitis of sacrum ; possibly 2/2 UTI - Presented to the ER with complaints of pain in the right lower extremity - Physical does reveal erythema, tenderness and warmth of the right lower extremity - improving - Sacral decubitus ulcer with wound vac in place - WBC count improving; Lactic acidosis resolved; CRP remains relatively unchanged - UA with equivocal signs of infection - Blood cultures 07/26: no growth at 24 hours; Urine cultures 07/26: Yeast like organisms - Wound culture 07/29: Pending - c/w Vancomycin and Zosyn (Day #5); s/p PICC line placement (07/29) - s/p Debridement on 07/28/18 - Wound care, Surgery and ID on consult; appreciate their input Hyponatremia - likely 2/2 hypotonic hypovolemia - Improving - s/p IV fluid hydration CAD - ASA HTN - Has not been taking BP medications - Will continue to monitor DLP - c/w Rosuvastatin Hypothyroidism - c/w Levothyroxine CKD3 - Cr baseline of 1.5-1.6 - Better than baseline Chronic LE edema - c/w Wound care Hx of Bladder CA Anxiety - c/w Hydroxyzine Obesity - Complicating medical care Poor compliance - Has refused physical therapy to come to her home - Has stopped seeing wound care (Dr. Omer) because of disagreements - PFS on board for likely sub-acute rehabilitation / wound care / prolonged antibiotics DVT prophylaxis - c/w Heparin Disposition: - Awaiting clinical improvement - Will determine duration of antibiotic therapy - Will likely need BIBI placement for wound care and antibiotic therapy; poor candidate for home care VS,Fishbone, I+O VS, Fishbone, I+O Laboratory Tests 07/30/18 05:19 Red Blood Count 3.33 L, Mean Corpuscular Volume 77.8 L, Mean Corpuscular Hemoglobin 24.9 L, Mean Corpuscular Hemoglobin Concent 32.0, Red Cell Distribution Width 18.2 H, Neutrophils (%) (Auto) 70.9 H, Lymphocytes (%) (Auto) 13.5 L, Monocytes (%) (Auto) 10.3 H, Eosinophils (%) (Auto) 3.9 H, Basophils (%) (Auto) 0.5, Neutrophils # (Auto) 7.0, Lymphocytes # (Auto) 1.3 L, Monocytes # (Auto) 1.0 H, Eosinophils # (Auto) 0.4, Basophils # (Auto) 0.1, Calcium Level 8.2 L Vital Signs Date Time Temp Pulse Resp B/P (MAP) Pulse Ox O2 Delivery O2 Flow Rate FiO2 07/30/18 10:43 16 Room Air 07/30/18 08:00 98.5 67 130/60 (83) 97 I&O- Last 24 Hours up to 6 AM 07/30/18 06:00 Intake Total 780 ml Output Total 1425 ml Balance -645 ml MARISOL BLACKMAN MD Jul 30, 2018 11:57
--- NOTE | 2018-07-30 13:56 | PHACANCOPD ---
PHARMACY VANCOMYCIN DOSING Pt Demographics Demographics Patient Age:78 , Weight:94.100 , Gender: female Adjusted Body Weight Vancomycin Vancomycin indication: BLE CELLULITIS/SSSI Vancomycin Target Ranges: 15-20 mcg/ml Vancomycin Load Y/N: Yes Load Dose Date Time Vancomycin Load Dose: 1.5GM Date: 07/26/18 Time: 22:00 Vancomycin Dose Date: 07/27/18. Current Vancomycin Dose: [1GM IV Q48H (09:00)] Intermittent Dosing?: No Labs Micro Microbiology 07/26/18 Blood Culture - Preliminary, Resulted No Growth after 72 hours. All specime... 07/26/18 Blood Culture - Preliminary, Resulted No Growth after 72 hours. All specime... 07/26/18 Urine Culture - Final, Complete Yeast Like Organism 07/29/18 Gram Stain - Final, Resulted 07/29/18 Wound Culture, Resulted Pending Creatinine Clearance Date:07/26/18. Creatinine Clearance: [>20 ml/min]. Assessment and Plan Maintaining Current Dose?: Yes Reason for dose change: No Dose Change Pharmacist Note Pharmacist Note 07/30/18: Day #5 vancomycin therapy. Trough level yesterday resulted therapeutic at 16.2mcg/ml. The patient's scr has improved from 1.56 on admit to 1.02 today, as has BUN from 26 on admit to 12 today. We will continue the patient on her current regimen of 1g IV Q48H and draw a follow-up trough level tomorrow, 07/31/17, at 1700 to ensure that we are maintaining therapeutic levels given her improved renal function. We will continue to monitor and make dose adjustments if needed. Date: 07/26/18. PharmD note: SSSI/BLE CELLULITIS. PREVIOUS ADMISSION NOTED AND CONSULTED FOR DOSING. VANCO 1.5GM IV LOAD @ 22:00 THIS EVENING FOLLOWED BY VANCO 1GM IV Q48H STARTING AT 09:00 07/27/18. A VANCO TROUGH WILL BE ORDERED WHEN AT [facility] Jul 30, 2018 13:56
[2018-07-30 14:00] VITALS: BP 110/60
--- NOTE | 2018-07-30 15:36 | CR ---
DATE OF CONSULTATION: 07/30/2018 Asked to consult for evaluation of sacral osteomyelitis from a decubitus ulcer. HISTORY OF PRESENT ILLNESS: Mrs. Rea is an 78-year-old female who was hospitalized for 3 weeks in June and discharged on July 17 with right lower extremity cellulitis. The patient has morbid obesity and during her hospitalization was mostly bedridden. She presented to the emergency room with complaints of pain in her foot and not feeling well. She did not have any fever, chills, nausea, vomiting, or diarrhea. In the emergency room (ER) she was noted to have a white count of 21,000, a decubitus ulcer that was quite deep that required debridement. The patient was started on broad-spectrum antibiotic with intravenous (IV) vancomycin and Zosyn, and she was taken to the operating room by Dr. Landers for debridement. For review of notes, the wound was quite deep and the skin, subcutaneous tissue, muscle, and presacral fascia were debrided, and a wound vacuum-assisted closure (VAC) was placed. The patient does not complain of significant pain in the area. She has a wound VAC in place that was not removed today, as the VAC is being changed Thursday, Thursday, Thursday. PAST MEDICAL HISTORY: Significant for: 1. Morbid obesity. 2. Chronic kidney disease, stage III. 3. Hypothyroidism. 4. Hyperlipidemia. 5. Chronic venous stasis and lower extremity edema. 6. History of recurrent cellulitis of lower extremities. 7. Hypertension. 8. Coronary artery disease. 9. Nephrolithiasis. 10. Bladder cancer. PAST SURGICAL HISTORY: 1. Cystoscopy with stent placement for nephrolithiasis. 2. Lumbar laminectomy. 3. Hysterectomy. 4. Appendectomy. 5. Knee surgeries. ALLERGIES: CAMPHOR, CLINDAMYCIN, PHENOBARBITAL, SULFA, TROLAMINE, SALICYLATES. FAMILY HISTORY: Nonrevealing. SOCIAL HISTORY: She denies tobacco, alcohol, or illicit drug use. She lives with her boyfriend, who is 20 years younger than she is, and his mother. MEDICATIONS: - aspirin 81 mg daily - ergocalciferol 50,000 units monthly - ferrous sulfate 325 mg daily - hydroxyzine 10 mg twice daily as needed - ibandronate 850 mg monthly - Lactobacillus daily - Synthroid 125 mcg daily - magnesium gluconate 500 mg at bedtime - potassium chloride 20 mEq daily - rosuvastatin 40 mg daily - vancomycin 1 gram IV every 48 hours - Zosyn 2.25 grams IV every 6 hours - Percocet two tablets by mouth every 6 as needed - Zofran 4 mg by mouth every 4 as needed REVIEW OF SYSTEMS: She denies any nausea, vomiting, diarrhea. No chest pain or shortness of breath. She has chronic lower extremity edema, chronic lower extremity pain from wound ulcers. LABORATORY DATA: White count 12.5, hemoglobin 9.5, hematocrit 30, platelets 512, 74% neutrophils, 10% lymphocytes, 10% monocytes. Sodium 134, potassium 4.7, chloride 108, bicarbonate 17, BUN 16, creatinine 1.14, glucose 81, calcium 8.3, magnesium 2.5, CRP 21.5. No cultures were done from the decubitus ulcer intraoperatively. Blood cultures, two sets, were done on December 24. No growth after 48 hours. Urine culture had yeastlike organism. Culture from previous hospitalization: Nasal culture had methicillin-resistant Staphylococcus aureus (MRSA) and groin culture had MRSA with group C streptococcus and Proteus. IMAGING STUDIES: A peripherally inserted central catheter (PICC) line was placed on July 29. Chest x-ray July 27: No infiltrate. Mild cardiomegaly. PHYSICAL EXAMINATION: A morbidly obese female in no acute distress. Temperature is 99.6, pulse 85, respirations 18, blood pressure 130/80 oxygen saturation 95 % on room air. HEART: Normal S1, S2. No murmurs, rubs, or gallops. LUNGS: Clear anteriorly. No wheezes, rales, or rhonchi. ABDOMEN: Morbidly obese, soft, mildly tender in the areas of ecchymosis where she has heparin. BACK: Not examined. The patient is not able to roll over. Tomorrow will remove the wound VAC and examine the wound. EXTREMITIES: Edema 1+ bilaterally. Right foot lesions with ulcerations, healing well. IMPRESSION: This is a 78-year-old female with a decubitus ulcer, stage IV, possibly involving the sacrum with probable osteomyelitis. Will have to discuss that with Dr. Landers to see if there was bone exposure. Her sedimentation rate and C-reactive protein (CRP) are quite elevated, possibly suggestive of osteomyelitis. The patient is on adequate coverage for osteomyelitis at this point without results of cultures. She is on IV vancomycin and Zosyn. She has a previous history of MRSA. PLAN: Continue with current antibiotics. Will followup complete blood count (CBC), CRP weekly. Will obtain a wound culture after wound VAC is changed tomorrow. PICC line has been placed for home IV antibiotics. She will need detention placement to finish antibiotics and wound VAC. CARMEN
[2018-07-30] MEDS: MAGNESIUM GLUCONATE 500 MG TAB PO SCH (20:15)
[2018-07-30] MEDS: LEVOTHYROXINE 125MCG TABLET (0.125MG) PO SCH (20:15)
[2018-07-30 22:00] VITALS: BP 113/47
[2018-07-31] MEDS: PERCOCET 5MG/325MG TAB PO PRN ×3 (03:12→21:22)
[2018-07-31] MEDS: PIPERACILLIN/TAZOBACTAM SOD 2.25 GM in D5W MINI-BAG PLUS 50 ML IV SCH ×4 (05:34→22:49)
[2018-07-31] MEDS: HEPARIN SOD (PORCINE) 5000 UNITS/ML VIAL SC SCH ×3 (05:35→21:21)
[2018-07-31] MEDS: SODIUM CHLORIDE 0.9% INJ 10 ML SYR IV SCH ×2 (05:35→17:18)
[2018-07-31 06:00] VITALS: BP 115/56
--- NOTE | 2018-07-31 06:48 | IPN ---
DATE: 07/30/2018 Patient was seen during her dressing changes. Yesterday her wound vac fell off and therefore she had to have a wound vac change at night time. So this was not due to be changed today. The rest of her dressings were changed. She has an ulcer on her left medial thigh measuring about 4 cm x 1 cm. Optifoam dressing was placed. She has another ulcer which is also linear in shape measuring about 4 x 1 cm with yellow purulent discharge on her mid back also covered with Optifoam. She has a decubitus ulcer according to her nurse measuring about 4four x 4 cm deep. The sacral decbuits will be examined next with next wound dressing change. Heart: Normal S1-S12. No murmurs. Lungs are clear. No wheezes or rhonchi. Abdomen: Morbidly obese, soft, nontender. Extremities: Trace edema right toe, has an ulceration from previous episode of cellulitis with black eschar minimal bloody discharge second toe, healing well calf has an ulceration measuring about 6 cm with granulation tissue. No surrounding cellulitis or and slough. LABORATORY DATA: White count 9.8, hemoglobin 8.3, hematocrit 25.9, platelets 498, 70% neutrophil lymphocytes 13%, 10% monocytes. Sodium 134, potassium 4.6, chloride 105, bicarb 21, BUN 12, creatinine 1.02, glucose 89, calcium 8.2, magnesium 2.1, CRP 18.8. ESR 128 gram stain from decubitus ulcer has no organisms seen. Blood cultures two sets were negative and urine culture has yeastlike organism only 6000. IMPRESSION: Sacral decubitus stage IV with presumptive osteomyelitis. According to Dr. Leos there was bone exposed. With elevated ESR and CRP concerning for osteomyelitis. The patient currently on Vanco and Zosyn pending results of cultures. 2. Hyponatremia status post hydration and this is improving. 3. Right lower extremity cellulitis that was treated on previous admission and currently there is no evidence of infection on the right leg but healing ulcerations. PLAN: Continue with IV vancomycin and Zosyn until results of culture. Continue monitoring CBC, CRP, ESR twice a week. The patient will need 6 weeks of antibiotics and I am not sure that they need to all be intravenously but at least 2 weeks of IV antibiotic and choice will depend on results of cultures obtained yesterday.
[2018-07-31 07:04] LABS: BASO # 0.1 10^3/uL (0.0-0.2); BASO % 1.1 % (0.0-1.0); EOS # 0.6 10^3/uL (0.0-0.50); HEMATOCRIT 29.8 % (36.0-47.0); HEMOGLOBIN 9.4 g/dl (12.0-15.5); LYMPH # 1.8 10^3/uL (1.5-4.5); LYMPH % 21.8 % (24.0-44.0); MEAN CORPUSCULAR HEMOGLOBIN 25.5 pg (27.0-33.0); MEAN CORPUSCULAR HGB CONC 31.5 g/dl (32.0-36.5); MEAN CORPUSCULAR VOLUME 80.8 fl (80.0-96.0); MONO % 11.6 % (0.0-5.0); NEUTROPHILS # 4.8 10^3/uL (1.8-7.7); NEUTROPHILS % 57.3 % (36.0-66.0); PLATELET COUNT, AUTOMATED 518 10^3/uL (150-450); RED BLOOD COUNT 3.69 10^6/uL (4.00-5.40); WHITE BLOOD COUNT 8.3 10^3/uL (4.0-10.0)
[2018-07-31 07:35] LABS: C REACTIVE PROTEIN QUANTITATIV 14.9 MG/DL (0.00-0.30); CALCIUM LEVEL 8.8 MG/DL (8.8-10.2); CREATININE FOR GFR 1.07 MG/DL (0.55-1.30); GLOMERULAR FILTRATION RATE 52.5 (>32); MAGNESIUM LEVEL 2.1 MG/DL (1.8-2.4); POTASSIUM SERUM 4.6 MEQ/L (3.5-5.1)
[2018-07-31] MEDS: ROSUVASTATIN 10 MG TAB (CRESTOR) PO SCH (08:15)
[2018-07-31] MEDS: POTASSIUM CHLORIDE 10 MEQ SR TABLET PO SCH (08:15)
[2018-07-31] MEDS: LACTOBACILLUS ACIDOPHILUS CAP (BACID) PO SCH (08:15)
[2018-07-31] MEDS: FERROUS SULFATE 325MG TAB PO SCH (08:15)
[2018-07-31] MEDS: ASPIRIN 81 MG ENTERIC TAB PO SCH (08:15)
[2018-07-31] MEDS: MORPHINE 4 MG/ML 1ML VIAL/SYRINGE (J2270) IV PRN ×3 (08:16→21:21)
--- NOTE | 2018-07-31 10:55 | IPNPDOC ---
Text Note Date of Service The patient was seen on 07/31/18. NOTE Subjective: Patient is an 78-year-old female with a PMHx Obesity, CAD, HTN, DLP, Hypothyroidism, CKD3, Chronic LE edema, Recurrent cellulitis of LE, Stage IV decubitus ulcers, Hx of Bladder CA, who presents to the ER with pain on her R foot and difficulty with mobility. Patient has very poor compliance with therapy as an outpatient. She is bedbound at baseline. . She has stopped falling Dr. Omer because of disagreements. Previous admissions have revealed MRSA positive wounds. Patient has been admitted to hospitalist service for possible cellulitis of the right lower extremity. Wound care has been called on consultation. Patient was seen and examined at the bedside. Patient notes that she has pain. Denies any nausea or vomiting. Denies chest palpitations. Denies abdominal pain, constipation, diarrhea. Has been trying to keep up with positioning and avoiding placing too much pressure on her sacral decubitus ulcer. Objective: Vitals (See below) General: Lying in bed, no acute distress, comfortable, AAOx3 HEENT: NC, AT CVS: RRR, +S1S2 Lungs: Fair air entry b/l, auscultation is without any rhonchi, rales or wheezing Abdomen: Soft, ND, non-tender Back: + Sacral decubitus ulcers (Stage IV) with wound vac in place Extremities: +1 Edema bilaterally, Chronic venous stasis changes bilaterally and ulcers on R leg - dressing in place, - Calf tenderness Assessment and plan: Sepsis - likely 2/2 Right leg cellulitis / Stage IV decubitus ulcers, possibly 2/2 osteomyelitis of sacrum; less likely 2/2 UTI - Presented to the ER with complaints of pain in the right lower extremity - Physical does reveal erythema, tenderness and warmth of the right lower extremity - improving - Sacral decubitus ulcer with wound vac in place - WBC count improving; Lactic acidosis resolved; CRP remains relatively unchanged - UA with equivocal signs of infection - Blood cultures 07/26: no growth at 72 hours; Urine cultures 07/26: Yeast like organisms - Wound culture 07/29: Pending - c/w Vancomycin and Zosyn (Day #6); s/p PICC line placement (07/29) - s/p Debridement on 07/28/18 - Wound care, Surgery and ID on consult; appreciate their input Hyponatremia - likely 2/2 hypotonic hypovolemia - Will check urine electrolytes, osmolality (urine / serum), TSH and cortisol level - s/p IV fluid hydration CAD - ASA HTN - Has not been taking BP medications - Will continue to monitor DLP - c/w Rosuvastatin Hypothyroidism - c/w Levothyroxine CKD3 - Cr baseline of 1.5-1.6 - Better than baseline Chronic LE edema - c/w Wound care Hx of Bladder CA Anxiety - c/w Hydroxyzine Obesity - Complicating medical care Poor compliance - Has refused physical therapy to come to her home - Has stopped seeing wound care (Dr. Omer) because of disagreements - PFS on board for likely sub-acute rehabilitation / wound care / prolonged antibiotics DVT prophylaxis - c/w Heparin Disposition: - Wound culture pending - Will likely need BIBI placement for wound care and antibiotic therapy; poor candidate for home care VS,Fishbone, I+O VS, Fishbone, I+O Laboratory Tests 07/31/18 06:36 Red Blood Count 3.69 L, Mean Corpuscular Volume 80.8, Mean Corpuscular Hemoglobin 25.5 L, Mean Corpuscular Hemoglobin Concent 31.5 L, Red Cell Distribution Width 18.4 H, Neutrophils (%) (Auto) 57.3, Lymphocytes (%) (Auto) 21.8 L, Monocytes (%) (Auto) 11.6 H, Eosinophils (%) (Auto) 7.0 H, Basophils (%) (Auto) 1.1 H, Neutrophils # (Auto) 4.8, Lymphocytes # (Auto) 1.8, Monocytes # (Auto) 1.0 H, Eosinophils # (Auto) 0.6 H, Basophils # (Auto) 0.1, Calcium Level 8.8 Vital Signs Date Time Temp Pulse Resp B/P (MAP) Pulse Ox O2 Delivery O2 Flow Rate FiO2 07/31/18 08:26 18 Room Air 07/31/18 06:00 97.4 84 115/56 (75) 92 I&O- Last 24 Hours up to 6 AM 07/31/18 06:00 Intake Total 480 ml Output Total 1050 ml Balance -570 ml MARISOL BLACKMAN MD Jul 31, 2018 10:55
[2018-07-31] MEDS: NYSTATIN 100,000 UNITS/GM TOPICAL PWD 15 GM TOP SCH ×2 (11:52→21:22)
[2018-07-31] MEDS: SANTYL OINT 30GM TOP SCH (11:52)
[2018-07-31 12:40] LABS: THYROID STIMULATING HORMONE 11.5 uIU/ML (0.358-3.740)
[2018-07-31] MEDS: ONDANSETRON 4 MG TAB (S0181) PO PRN (13:50)
[2018-07-31 14:00] VITALS: BP 107/63
[2018-07-31] MEDS: SODIUM CHLORIDE 0.9% INJ 10 ML SYR IV PRN (14:24)
[2018-07-31 17:51] LABS: OSMOLALITY URINE 380 MOSM/KG (500-800)
[2018-07-31 17:53] LABS: APPEARANCE, URINE HAZY (CLEAR); BACTERIA, URINE AUTO 1+ (NEGATIVE); BILIRUBIN, URINE AUTO NEGATIVE (NEGATIVE); BLOOD, URINE BLOOD 1+ (NEGATIVE); COLOR, URINE YELLOW (YELLOW); GLUCOSE, URINE (UA) AUTO NEGATIVE (NEGATIVE); KETONE, URINE AUTO NEGATIVE (NEGATIVE); LEUKOCYTE ESTERASE, URINE AUTO 2+ (NEGATIVE); MUCUS, URINE SMALL (NEGATIVE); NITRITE, URINE AUTO NEGATIVE (NEGATIVE); PROTEIN, URINE AUTO NEGATIVE (NEGATIVE); RBC, URINE AUTO 12 /HPF (0-3); SPECIFIC GRAVITY URINE AUTO 1.011 (1.002-1.035); SQUAMOUS EPITHELIAL CELL UR AU 0 /HPF (0-6); UROBILINOGEN, URINE AUTO 0.2 mg/dL (0.0-2.0); WBC, URINE AUTO 101 /HPF (0-3)
[2018-07-31 18:07] LABS: CREATININE,RANDOM URINE 42.4 MG/DL; SODIUM,RANDOM URINE 103 MEQ/L
[2018-07-31] MEDS: VANCOMYCIN HCL 1,000 MG, VIAL MATE ADAPTER 1 EACH in D5W 250 ML IV SCH (18:16)
--- NOTE | 2018-07-31 21:12 | PHACANCOPD ---
PHARMACY VANCOMYCIN DOSING Pt Demographics Demographics Patient Age:78 , Weight:94.100 , Gender: female Adjusted Body Weight Events Past 24 Hours Events Past 24 Hours: NO: Dialysis, Diuretic Therapy, Change in CrCl, Fever, Elevation in WBC, Pending Diagnostics, Pending Procedures, Other Vancomycin Vancomycin indication: BLE CELLULITIS/SSSI Vancomycin Target Ranges: 15-20 mcg/ml Vancomycin Load Y/N: Yes Load Dose Date Time Vancomycin Load Dose: 1.5GM Date: 07/26/18 Time: 22:00 Vancomycin Dose Date: 07/31/18. Pharmacist note:1G IV Q36H Date: 07/27/18. Current Vancomycin Dose: [1GM IV Q48H (09:00)] Intermittent Dosing?: No Labs Labs Item Value Date Time White Blood Count 12.5 10^3/uL H 07/29/18 0541 White Blood Count 9.8 10^3/uL 07/30/18 0519 Creatinine 1.14 MG/DL 07/29/18 0541 Creatinine 1.02 MG/DL 07/30/18 05 Creatinine 1.07 MG/DL 07/31/18 0636 C-Reactive Protein, Quantitative 18.80 MG/DL H 07/30/18 0519 C-Reactive Protein, Quantitative 14.90 MG/DL H 07/31/18 0636 Micro Microbiology 07/26/18 Blood Culture - Final, Complete NO GROWTH AFTER 5 DAYS 07/26/18 Blood Culture - Final, Complete NO GROWTH AFTER 5 DAYS 07/26/18 Urine Culture - Final, Complete Yeast Like Organism 07/29/18 Gram Stain - Final, Resulted 07/29/18 Wound Culture, Resulted Pending Creatinine Clearance Date:07/26/18. Creatinine Clearance: [>20 ml/min]. Assessment and Plan Maintaining Current Dose?: No Reason for dose change: Trough too low Pharmacist Note Pharmacist Note Date: 07/31/18. Pharmacist note: Pt trough came back today @ 11.1mcg/ml. The dosing will be changed to 1g iv every 36 hours starting 08/02/18 @06. We will continue to monitor and adjust the dose as needed. 07/30/18: Day #5 vancomycin therapy. Trough level yesterday resulted therapeutic at 16.2mcg/ml. The patient's scr has improved from 1.56 on admit to 1.02 today, as has BUN from 26 on admit to 12 today. We will continue the patient on her current regimen of 1g IV Q48H and draw a follow-up trough level tomorrow, 07/31/17, at 1700 to ensure that we are maintaining therapeutic levels given her improved renal function. We will continue to monitor and make dose adjustments if needed. Date: 07/26/18. PharmD note: SSSI/BLE CELLULITIS. PREVIOUS ADMISSION NOTED AND CONSULTED FOR DOSING. VANCO 1.5GM IV LOAD @ 22:00 THIS EVENING FOLLOWED BY VANCO 1GM IV Q48H STARTING AT 09:00 07/27/18. A VANCO TROUGH WILL BE ORDERED WHEN AT [facility] Jul 31, 2018 21:12
[2018-07-31] MEDS: MAGNESIUM GLUCONATE 500 MG TAB PO SCH (21:22)
[2018-07-31] MEDS: LEVOTHYROXINE 125MCG TABLET (0.125MG) PO SCH (21:23)
[2018-07-31 22:00] VITALS: BP 105/63
[2018-08-01] MEDS: MORPHINE 4 MG/ML 1ML VIAL/SYRINGE (J2270) IV PRN ×2 (02:00→06:10)
[2018-08-01] MEDS: PERCOCET 5MG/325MG TAB PO PRN ×3 (03:22→16:28)
[2018-08-01] MEDS: HEPARIN SOD (PORCINE) 5000 UNITS/ML VIAL SC SCH ×3 (05:01→22:03)
[2018-08-01] MEDS: PIPERACILLIN/TAZOBACTAM SOD 2.25 GM in D5W MINI-BAG PLUS 50 ML IV SCH (05:01)
[2018-08-01] MEDS: SODIUM CHLORIDE 0.9% INJ 10 ML SYR IV SCH ×2 (05:02→16:29)
[2018-08-01 05:24] LABS: BASO # 0.1 10^3/uL (0.0-0.2); BASO % 0.9 % (0.0-1.0); EOS # 0.7 10^3/uL (0.0-0.50); EOS % 7.2 % (0.0-3.0); HEMATOCRIT 27.6 % (36.0-47.0); HEMOGLOBIN 8.7 g/dl (12.0-15.5); LYMPH % 22.6 % (24.0-44.0); MEAN CORPUSCULAR HEMOGLOBIN 25.3 pg (27.0-33.0); MEAN CORPUSCULAR HGB CONC 31.5 g/dl (32.0-36.5); MEAN CORPUSCULAR VOLUME 80.2 fl (80.0-96.0); MONO # 1.1 10^3/uL (0.0-0.8); MONO % 11.6 % (0.0-5.0); NEUTROPHILS # 5.1 10^3/uL (1.8-7.7); NEUTROPHILS % 56.8 % (36.0-66.0); PLATELET COUNT, AUTOMATED 508 10^3/uL (150-450); RED BLOOD COUNT 3.44 10^6/uL (4.00-5.40)
[2018-08-01 06:00] VITALS: BP 111/78
[2018-08-01 06:08] LABS: C REACTIVE PROTEIN QUANTITATIV 12.2 MG/DL (0.00-0.30); CALCIUM LEVEL 8.3 MG/DL (8.8-10.2); CREATININE FOR GFR 0.98 MG/DL (0.55-1.30); GLOMERULAR FILTRATION RATE 58.1 (>32); MAGNESIUM LEVEL 2.1 MG/DL (1.8-2.4); POTASSIUM SERUM 4.6 MEQ/L (3.5-5.1)
[2018-08-01 06:17] LABS: FREE T4 1.4 NG/DL (0.76-1.46); THYROID STIMULATING HORMONE 10.5 uIU/ML (0.358-3.740)
[2018-08-01] MEDS: NYSTATIN 100,000 UNITS/GM TOPICAL PWD 15 GM TOP SCH ×2 (09:00→22:04)
[2018-08-01] MEDS: SANTYL OINT 30GM TOP SCH (09:00)
[2018-08-01] MEDS: cefTRIAXone SOD 1 GM in D5W MINI-BAG PLUS 50 ML IV SCH (10:00)
[2018-08-01] MEDS: ROSUVASTATIN 10 MG TAB (CRESTOR) PO SCH (10:51)
[2018-08-01] MEDS: ASPIRIN 81 MG ENTERIC TAB PO SCH (10:52)
[2018-08-01] MEDS: POTASSIUM CHLORIDE 10 MEQ SR TABLET PO SCH (10:52)
[2018-08-01] MEDS: ONDANSETRON 4 MG TAB (S0181) PO PRN ×2 (10:52→15:07)
[2018-08-01] MEDS: FERROUS SULFATE 325MG TAB PO SCH (10:52)
[2018-08-01] MEDS: LACTOBACILLUS ACIDOPHILUS CAP (BACID) PO SCH (10:52)
[2018-08-01 14:00] VITALS: BP 112/80
--- NOTE | 2018-08-01 14:21 | IPNPDOC ---
Text Note Date of Service The patient was seen on 08/01/18. NOTE Subjective: Patient is an 78-year-old female with a PMHx Obesity, CAD, HTN, DLP, Hypothyroidism, CKD3, Chronic LE edema, Recurrent cellulitis of LE, Stage IV decubitus ulcers, Hx of Bladder CA, who presents to the ER with pain on her R foot and difficulty with mobility. Patient has very poor compliance with therapy as an outpatient. She is bedbound at baseline. . She has stopped falling Dr. Omer because of disagreements. Previous admissions have revealed MRSA positive wounds. Patient has been admitted to hospitalist service for possible cellulitis of the right lower extremity. Wound care has been called on consultation. Patient was seen and examined at the bedside. Patient notes that her pain is well controlled this morning. She denies any nausea, vomiting, abdominal pain, constipation, diarrhea or discomfort with urination. She does have a Petit catheter in place. Objective: Vitals (See below) General: Lying in bed, no acute distress, comfortable, AAOx3 HEENT: NC, AT CVS: RRR, +S1S2 Lungs: Fair air entry b/l, does not appear to be auscultated evidence of wheezing, rales or rhonchi Abdomen: Soft, abdomen, remains nondistended, without any evidence of tenderness Back: + Sacral decubitus ulcers (Stage IV) - wound VAC to be changed today Extremities: Chronic b/l 1+ pitting edema, Chronic venous stasis changes bilaterally and ulcers on R leg - dressing in place, - Calf tenderness Assessment and plan: Sepsis - likely 2/2 Right leg cellulitis / Stage IV decubitus ulcers, possibly 2/2 osteomyelitis of sacrum; less likely 2/2 UTI - Currently patient notes improvement in pain - Sacral decubitus ulcer with wound vac in place; dressing will be changed today - s/p Leukocytosis and Lactic acidosis; CRP improving - UA with equivocal signs of infection - Blood cultures 07/26: no growth at 72 hours; Urine cultures 07/26: Yeast like organisms - Wound culture 07/29: Proteus Mirabilis - Will start Ceftriaxone; Will DC Vancomycin and Zosyn (Antibiotic day #7); s/p PICC line placement (07/29) - s/p Debridement on 07/28/18 - Wound care, Surgery and ID on consult; appreciate their input Hyponatremia - likely 2/2 hypotonic - possibly 2/2 hypovolemia - Serum osmolality noted to be low - Thyroid function noted; cortisol level pending - s/p IV fluid hydration - Will continue to monitor CAD - ASA HTN - Has not been taking BP medications - Will continue to monitor DLP - c/w Rosuvastatin Hypothyroidism - c/w Levothyroxine CKD3 - Cr baseline of 1.5-1.6 - Better than baseline Chronic LE edema - c/w Wound care Hx of Bladder CA Anxiety - c/w Hydroxyzine Obesity - Complicating medical care Poor compliance - Has refused physical therapy to come to her home - Has stopped seeing wound care (Dr. Omer) because of disagreements - PFS on board for likely sub-acute rehabilitation / wound care / prolonged antibiotics DVT prophylaxis - c/w Heparin Disposition: - Will likely need BIBI placement for wound care and antibiotic therapy; poor candidate for home care VS,Fishbone, I+O VS, Fishbone, I+O Laboratory Tests 08/01/18 05:08 Red Blood Count 3.44 L, Mean Corpuscular Volume 80.2, Mean Corpuscular Hemoglobin 25.3 L, Mean Corpuscular Hemoglobin Concent 31.5 L, Red Cell Distribution Width 18.2 H, Neutrophils (%) (Auto) 56.8, Lymphocytes (%) (Auto) 22.6 L, Monocytes (%) (Auto) 11.6 H, Eosinophils (%) (Auto) 7.2 H, Basophils (%) (Auto) 0.9, Neutrophils # (Auto) 5.1, Lymphocytes # (Auto) 2.0, Monocytes # (Auto) 1.1 H, Eosinophils # (Auto) 0.7 H, Basophils # (Auto) 0.1, Calcium Level 8.3 L Vital Signs Date Time Temp Pulse Resp B/P (MAP) Pulse Ox O2 Delivery O2 Flow Rate FiO2 08/01/18 06:20 20 Room Air 08/01/18 06:00 97.5 58 111/78 (89) 96 I&O- Last 24 Hours up to 6 AM 08/01/18 06:00 Intake Total 840 ml Output Total 875 ml Balance -35 ml MARISOL BLACKMAN MD Aug 01, 2018 14:21
[2018-08-01 21:00] VITALS: BP 100/52
[2018-08-01] MEDS: MAGNESIUM GLUCONATE 500 MG TAB PO SCH (22:03)
[2018-08-01] MEDS: LEVOTHYROXINE 125MCG TABLET (0.125MG) PO SCH (22:03)
[2018-08-02] MEDS: PERCOCET 5MG/325MG TAB PO PRN ×3 (00:19→22:06)
[2018-08-02 06:00] VITALS: BP 110/92
[2018-08-02] MEDS: SODIUM CHLORIDE 0.9% INJ 10 ML SYR IV SCH ×2 (06:00→18:00)
[2018-08-02] MEDS ORDERED: VANCOMYCIN HCL 1,000 MG, VIAL MATE ADAPTER 1 EACH in D5W 250 ML IV SCH ×6 (06:00)
[2018-08-02] MEDS: HEPARIN SOD (PORCINE) 5000 UNITS/ML VIAL SC SCH ×3 (06:00→22:01)
[2018-08-02 06:30] LABS: BASO # 0.1 10^3/uL (0.0-0.2); EOS # 0.5 10^3/uL (0.0-0.50); EOS % 5.2 % (0.0-3.0); HEMATOCRIT 29.2 % (36.0-47.0); HEMOGLOBIN 9.3 g/dl (12.0-15.5); LYMPH % 19.8 % (24.0-44.0); MEAN CORPUSCULAR HEMOGLOBIN 25.4 pg (27.0-33.0); MEAN CORPUSCULAR HGB CONC 31.8 g/dl (32.0-36.5); MEAN CORPUSCULAR VOLUME 79.8 fl (80.0-96.0); MONO # 1.2 10^3/uL (0.0-0.8); NEUTROPHILS % 60.6 % (36.0-66.0); PLATELET COUNT, AUTOMATED 545 10^3/uL (150-450); RED BLOOD COUNT 3.66 10^6/uL (4.00-5.40); WHITE BLOOD COUNT 9.8 10^3/uL (4.0-10.0)
[2018-08-02 06:53] LABS: C REACTIVE PROTEIN QUANTITATIV 13.4 MG/DL (0.00-0.30); CREATININE FOR GFR 1.03 MG/DL (0.55-1.30); GLOMERULAR FILTRATION RATE 54.9 (>32); MAGNESIUM LEVEL 2.2 MG/DL (1.8-2.4); POTASSIUM SERUM 4.4 MEQ/L (3.5-5.1)
[2018-08-02 07:08] LABS: ERYTHROCYTE SEDIMENTATION RATE 106 mm/hr (0-30)
[2018-08-02] MEDS ORDERED: MORPHINE 4 MG/ML 1ML VIAL/SYRINGE (J2270) IV PRN (08:00)
[2018-08-02] MEDS: LACTOBACILLUS ACIDOPHILUS CAP (BACID) PO SCH (09:35)
[2018-08-02] MEDS: POTASSIUM CHLORIDE 10 MEQ SR TABLET PO SCH (09:35)
[2018-08-02] MEDS: SANTYL OINT 30GM TOP SCH (09:36)
[2018-08-02] MEDS: NYSTATIN 100,000 UNITS/GM TOPICAL PWD 15 GM TOP SCH ×2 (09:36→22:01)
[2018-08-02] MEDS: ASPIRIN 81 MG ENTERIC TAB PO SCH (09:36)
[2018-08-02] MEDS: FERROUS SULFATE 325MG TAB PO SCH (09:36)
[2018-08-02] MEDS: ROSUVASTATIN 10 MG TAB (CRESTOR) PO SCH (09:36)
[2018-08-02] MEDS: cefTRIAXone SOD 1 GM in D5W MINI-BAG PLUS 50 ML IV SCH (09:40)
[2018-08-02 10:51] LABS: TOTAL T3 51.9 NG/DL (60.0-181.0)
[2018-08-02 11:20] LABS: CORTISOL BASELINE 18.9 UG/DL (4.3-22.4)
[2018-08-02 14:00] VITALS: BP 92/41
--- NOTE | 2018-08-02 14:57 | IPNPDOC ---
Text Note Date of Service The patient was seen on 08/02/18. NOTE Subjective: Patient is an 78-year-old female with a PMHx Obesity, CAD, HTN, DLP, Hypothyroidism, CKD3, Chronic LE edema, Recurrent cellulitis of LE, Stage IV decubitus ulcers, Hx of Bladder CA, who presents to the ER with pain on her R foot and difficulty with mobility. Patient has very poor compliance with therapy as an outpatient. She is bedbound at baseline. . She has stopped falling Dr. Omer because of disagreements. Previous admissions have revealed MRSA positive wounds. Patient has been admitted to hospitalist service for possible cellulitis of the right lower extremity. Wound care has been called on consultation. Patient was seen and examined at the bedside. Patient is upset that she cannot be sitting up in chair. . She denies any problems overnight. Has not required morphine. Over last 24 hours will discontinue morphine and continue with Percocet alone. She denies chest pain, shortness of breath or palpitations. Denies abdominal pain, nausea, vomiting, diarrhea. Objective: Vitals (See below) General: Lying in bed, no acute distress, comfortable, AAOx3 HEENT: NC, AT CVS: RRR, +S1S2 Lungs: Fair air entry b/l, auscultation is without any wheezing, rales or rhonchi Abdomen: Soft, abdomen, remains nondistended, nontender Back: + Sacral decubitus ulcers (Stage IV) - wound VAC will be changed this afternoon Extremities: Chronic edema with chronic venous stasis changes bilaterally and ulcers on R leg - dressing remains in place, - Calf tenderness Assessment and plan: Sepsis - likely 2/2 Right leg cellulitis / Stage IV decubitus ulcers, possibly 2/2 osteomyelitis of sacrum; less likely 2/2 UTI - Pain has somewhat improved - Sacral decubitus ulcer with wound vac in place; dressing will be changed today - s/p Leukocytosis and Lactic acidosis; CRP, stable - UA with equivocal signs of infection - Blood cultures 07/26: no growth at 5 days; Urine cultures 07/26: Yeast like organisms - Wound culture 07/29: Proteus Mirabilis - c/w Ceftriaxone; s/p Vancomycin and Zosyn (Antibiotic day #8); s/p PICC line placement (07/29) - s/p Debridement on 07/28/18 - Wound care, Surgery and ID on consult; appreciate their input Hyponatremia - likely 2/2 hypotonic - possibly 2/2 hypovolemia - Serum osmolality noted to be low - Thyroid function noted; cortisol level pending - Will restart IV fluids - Will continue to monitor CAD - ASA HTN - Has not been taking BP medications - Will continue to monitor DLP - c/w Rosuvastatin Hypothyroidism - c/w Levothyroxine CKD3 - Cr baseline of 1.5-1.6 - Better than baseline Chronic LE edema - c/w Wound care Hx of Bladder CA Anxiety - c/w Hydroxyzine Obesity - Complicating medical care Poor compliance - Has refused physical therapy to come to her home - Has stopped seeing wound care (Dr. Omer) because of disagreements - PFS on board for likely sub-acute rehabilitation / wound care / prolonged antibiotics DVT prophylaxis - c/w Heparin Disposition: - Will likely need BIBI placement for wound care and antibiotic therapy; poor candidate for home care VS,Fishbone, I+O VS, Fishbone, I+O Laboratory Tests 08/02/18 05:59 Red Blood Count 3.66 L, Mean Corpuscular Volume 79.8 L, Mean Corpuscular Hemoglobin 25.4 L, Mean Corpuscular Hemoglobin Concent 31.8 L, Red Cell Distribution Width 18.4 H, Neutrophils (%) (Auto) 60.6, Lymphocytes (%) (Auto) 19.8 L, Monocytes (%) (Auto) 12.0 H, Eosinophils (%) (Auto) 5.2 H, Basophils (%) (Auto) 1.0, Neutrophils # (Auto) 6.0, Lymphocytes # (Auto) 2.0, Monocytes # (Auto) 1.2 H, Eosinophils # (Auto) 0.5, Basophils # (Auto) 0.1, Calcium Level 9.0 Vital Signs Date Time Temp Pulse Resp B/P (MAP) Pulse Ox O2 Delivery O2 Flow Rate FiO2 08/02/18 14:00 98.0 84 18 92/41 (58) 98 Room Air I&O- Last 24 Hours up to 6 AM 08/02/18 06:00 Intake Total 890 ml Output Total 1400 ml Balance -510 ml MARISOL BLACKMAN MD Aug 02, 2018 14:57
[2018-08-02] MEDS: NS 1,000 ML IV SCH (15:53)
[2018-08-02 20:00] VITALS: BP 120/53
[2018-08-02] MEDS: MAGNESIUM GLUCONATE 500 MG TAB PO SCH (22:00)
[2018-08-02] MEDS: LEVOTHYROXINE 125MCG TABLET (0.125MG) PO SCH (22:01)
[2018-08-03] MEDS: HEPARIN SOD (PORCINE) 5000 UNITS/ML VIAL SC SCH ×3 (05:34→22:36)
[2018-08-03] MEDS: SODIUM CHLORIDE 0.9% INJ 10 ML SYR IV SCH ×2 (05:34→17:40)
[2018-08-03] MEDS: PERCOCET 5MG/325MG TAB PO PRN ×3 (05:35→22:37)
[2018-08-03 05:58] LABS: BASO # 0.1 10^3/uL (0.0-0.2); BASO % 0.8 % (0.0-1.0); EOS # 0.3 10^3/uL (0.0-0.50); EOS % 3.5 % (0.0-3.0); HEMATOCRIT 28.2 % (36.0-47.0); HEMOGLOBIN 8.8 g/dl (12.0-15.5); LYMPH # 1.7 10^3/uL (1.5-4.5); LYMPH % 18.9 % (24.0-44.0); MEAN CORPUSCULAR HEMOGLOBIN 25.1 pg (27.0-33.0); MEAN CORPUSCULAR HGB CONC 31.2 g/dl (32.0-36.5); MEAN CORPUSCULAR VOLUME 80.3 fl (80.0-96.0); MONO # 1.1 10^3/uL (0.0-0.8); MONO % 11.8 % (0.0-5.0); NEUTROPHILS # 5.8 10^3/uL (1.8-7.7); NEUTROPHILS % 63.7 % (36.0-66.0); PLATELET COUNT, AUTOMATED 539 10^3/uL (150-450); RED BLOOD COUNT 3.51 10^6/uL (4.00-5.40); WHITE BLOOD COUNT 9.1 10^3/uL (4.0-10.0)
[2018-08-03 06:00] VITALS: BP 123/54
[2018-08-03 06:22] LABS: BLOOD UREA NITROGEN 10 MG/DL (7-18); CALCIUM LEVEL 8.5 MG/DL (8.8-10.2); CARBON DIOXIDE LEVEL 22 MEQ/L (21-32); CHLORIDE LEVEL 105 MEQ/L (98-107); CREATININE FOR GFR 0.89 MG/DL (0.55-1.30); GLOMERULAR FILTRATION RATE > 60.0 (>32); GLUCOSE, FASTING 95 MG/DL (70-100); POTASSIUM SERUM 4.2 MEQ/L (3.5-5.1); SODIUM LEVEL 135 MEQ/L (136-145)
--- NOTE | 2018-08-03 07:29 | IPNPDOC ---
Text Note Date of Service The patient was seen on 08/03/18. NOTE Patient is an 78-year-old female with a PMHx Obesity, CAD, HTN, DLP, Hypothyroidism, CKD3, Chronic LE edema, Recurrent cellulitis of LE, Stage IV decubitus ulcers, Hx of Bladder CA, who presents to the ER with pain on her R foot and difficulty with mobility. Patient has very poor compliance with therapy as an outpatient. She is bedbound at baseline. . She has stopped falling Dr. Omer because of disagreements. Previous admissions have revealed MRSA positive wounds. Patient has been admitted to hospitalist service for possible cellulitis of the right lower extremity. Wound care has been called on consultation. Subjective: Patient seen and examined at bedside. No new medical complaints this morning. No acute overnight events reported. Objective: Vitals (See below) General: Lying in bed, no acute distress, comfortable, AAOx3 HEENT: NC, AT, edentulous CVS: RRR, +S1S2 Lungs: Fair air entry b/l, auscultation is without any wheezing, rales or rhonchi Abdomen: Soft, abdomen, remains nondistended, nontender Back: + Sacral decubitus ulcers (Stage IV) - wound VAC Extremities: Chronic edema with chronic venous stasis changes bilaterally and ulcers on R leg - dressing remains in place - right foot, - Calf tenderness Assessment and plan: #Sepsis - likely 2/2 Right leg cellulitis / Stage IV decubitus ulcers, possibly 2/2 osteomyelitis of sacrum; less likely 2/2 UTI - Pain has somewhat improved - Sacral decubitus ulcer with wound vac in place; dressing will be changed today - s/p Leukocytosis and Lactic acidosis; CRP, stable - UA with equivocal signs of infection - Blood cultures 07/26: no growth at 5 days; Urine cultures 07/26: Yeast like orga nisms - Wound culture 07/29: Proteus Mirabilis - c/w Ceftriaxone; s/p Vancomycin and Zosyn (Antibiotic day #8); s/p PICC line placement (07/29) - s/p Debridement on 07/28/18 - Wound care, Surgery and ID on consult; appreciate their input #Hyponatremia - likely 2/2 hypotonic - possibly 2/2 hypovolemia - Serum osmolality noted to be low - Thyroid function noted; cortisol level pending - Will restart IV fluids - Will continue to monitor #CAD - ASA #HTN - Has not been taking BP medications - Will continue to monitor #DLP - c/w Rosuvastatin #Hypothyroidism - c/w Levothyroxine #CKD3 - Cr baseline of 1.5-1.6 - Better than baseline #Chronic LE edema - c/w Wound care #Hx of Bladder CA #Anxiety - c/w Hydroxyzine #Obesity - Complicating medical care #Poor compliance - Has refused physical therapy to come to her home - Has stopped seeing wound care (Dr. Omer) because of disagreements - PFS on board for likely sub-acute rehabilitation / wound care / prolonged antibiotics #DVT prophylaxis - c/w Heparin Disposition: - CT A/P pending; ID follow up; eventually will need BIBI on discharge VS,Fishbone, I+O VS, Fishbone, I+O Laboratory Tests 08/03/18 05:40 Red Blood Count 3.51 L, Mean Corpuscular Volume 80.3, Mean Corpuscular He moglobin 25.1 L, Mean Corpuscular Hemoglobin Concent 31.2 L, Red Cell Distribution Width 18.4 H, Neutrophils (%) (Auto) 63.7, Lymphocytes (%) (Auto) 18.9 L, Monocytes (%) (Auto) 11.8 H, Eosinophils (%) (Auto) 3.5 H, Basophils (%) (Auto) 0.8, Neutrophils # (Auto) 5.8, Lymphocytes # (Auto) 1.7, Monocytes # (Auto) 1.1 H, Eosinophils # (Auto) 0.3, Basophils # (Auto) 0.1, Calcium Level 8.5 L Vital Signs Date Time Temp Pulse Resp B/P (MAP) Pulse Ox O2 Delivery O2 Flow Rate FiO2 08/03/18 06:05 15 08/02/18 20:00 97.4 92 120/53 (75) 93 08/02/18 14:00 Room Air I&O- Last 24 Hours up to 6 AM 08/03/18 06:00 Intake Total 300 ml Output Total 800 ml Balance -500 ml KASHMIR MARTINEZ MD Aug 03, 2018 07:29
[2018-08-03] MEDS ORDERED: ISOVUE-370 76% 100ML VIAL (Q9967) As Ordered ONE (08:56)
--- NOTE | 2018-08-03 09:47 | IPN ---
DATE: 08/02/2018 Mrs. Rea was seen during dressing changes. Her wound VAC was changed today by Cindy Caballero. She has had no fever or chills. No nausea, vomiting or diarrhea. No abdominal pain. Her appetite has been good. Her antibiotics were de-escalated to Rocephin 1 gram daily. Vancomycin and Zosyn was discontinued. LABORATORY DATA: White count 9.8, hemoglobin 9.3, hematocrit 29.2, platelets 545, 60% neutrophils, 19% lymphocytes, 12% monocytes. Sodium 132, potassium 4.4, chloride 102, bicarb 20, BUN 11, creatinine 1.03, glucose 95, calcium 9, magnesium 2.2, CRP 13.4 down from 21.7. Wound culture had Proteus mirabilis. Blood cultures two sets were negative. On physical exam today, sacral decubitus ulcer measures at least 15 cm x 10 cm with the depth of 3 cm. There is 50% slough. There is minimal periulcer erythema. She has another ulceration on the mid thigh, left pressure also measuring about 3 x 1 cm with minimal yellowish discharge. She had another ulceration on the mid-back also longitudinal measuring 3 x 1 cm. Cellulitis of right foot toe has some cysts eschar. The ulcer on the toe measures about 3 x 2 cm with granulation tissue. The ulceration on the leg has granulation tissue with no purulent discharge. IMPRESSION: Sacral decubitus ulcer stage IV with possible osteomyelitis as it was tracking all the way to bone. Culture positive for Proteus mirabilis. The patient has been switched to Rocephin. Dose needs to be increased to 2 grams daily. Multiple other pressure ulcers including thigh and back. Conservative treatment with up to foam dressing changes and offloading. Cellulitis of right lower extremity, resolving. PLAN: Continue IV Rocephin 2 grams daily but also obtain CT abdomen pelvis to document if she has osteomyelitis of the sacral area by CT to make a decision on length of therapy.
[2018-08-03] MEDS: NS 1,000 ML IV SCH (09:48)
[2018-08-03] MEDS: FERROUS SULFATE 325MG TAB PO SCH (09:49)
[2018-08-03] MEDS: LACTOBACILLUS ACIDOPHILUS CAP (BACID) PO SCH (09:49)
[2018-08-03] MEDS: ASPIRIN 81 MG ENTERIC TAB PO SCH (09:49)
[2018-08-03] MEDS: POTASSIUM CHLORIDE 10 MEQ SR TABLET PO SCH (09:49)
[2018-08-03] MEDS: ROSUVASTATIN 10 MG TAB (CRESTOR) PO SCH (09:50)
[2018-08-03] MEDS: NYSTATIN 100,000 UNITS/GM TOPICAL PWD 15 GM TOP SCH ×2 (09:50→22:36)
[2018-08-03] MEDS: cefTRIAXone SOD 2 GM in D5W MINI-BAG PLUS 50 ML IV SCH (09:50)
--- NOTE | 2018-08-03 10:32 | REP ---
CT ABDOMEN WITH IV BUT WITHOUT ORAL CONTRAST: HISTORY: Sacral ulcer. Question osteo. Comparison CT study June 25, 2017. CT CONTRAST DOSE: 100 mL of Isovue [address] FINDINGS: Preliminary digital hemmer chainstitch radiograph demonstrates a normal bowel gas pattern. The lung bases are clear on axial CT images. The liver is normal in size homogeneous in texture. The spleen contains a few granulomatous calcifications but is otherwise intact. There is a tiny sliding type hiatal hernia. No adrenal lesion is seen. Gallbladder is somewhat distended but shows no CT evidence of stone or wall thickening. There is a mild multifocal renal cortical scarring. Intrarenal nephrolithiasis is noted bilaterally. The largest calculus is in the lower pole on the right 4 mm in diameter. There is mild right-sided hydronephrosis and hydroureter. The right ureter is somewhat prominent to its distal segment where there are some adjacent sutures. No calculus is appreciated. The patient gives a history of bladder malignancy with bladder surgery. A Petit catheter is noted in the urinary bladder, which is empty around the Petit balloon. The left ureter is unremarkable. No left-sided hydronephrosis. No renal mass lesion is seen. No retroperitoneal adenopathy is observed. Normal caliber aorta is seen. Pancreas is unremarkable. Small and large intestinal bowel loops are normal in the abdomen and pelvis. There are multiple injection sites in the subcutaneous fat of the anterior abdominal wall bilaterally. There is a large decubitus ulcer over the dorsal surface of the sacrum and coccyx. The air associated with this skin and soft tissue defect extends to the posterior cortex of the coccyx and distal sacrum but there is no definite bony destruction. The remainder of the sacrum appears intact. The coccyx is subluxed somewhat anteriorly relative to the sacrum with increased kyphosis at the sacral coccygeal junction on sagittal reformatted scans. The coccyx is surrounded by soft tissue swelling which is a new finding as well when compared with the June 25, 2017 study. These changes in conjunction with the adjacent decubitus ulcer and gas imply osteomyelitis involving the coccyx and distal tip of the sacrum. IMPRESSION: 1. Deep decubitus ulcer over the dorsal aspect of the distal sacrum. This extends to the bone. No erosion is seen however the coccyx is surrounded by new soft tissue density and subluxed ventrally compared to its position on June 25, 2017 CT. These changes imply osteomyelitis of the coccyx and distal sacrum. No abscess is visible. 2. Mild hydronephrosis on the right with hydroureter. No definite obstructive lesion. Post surgical changes adjacent to the distal ureter. Bilateral intrarenal calculi. Electronically Signed by Manuel Cardenas MD 08/03/2018 05:30 P
[2018-08-03 14:00] VITALS: BP 110/66
[2018-08-03 22:00] VITALS: BP 147/84
[2018-08-03] MEDS: MAGNESIUM GLUCONATE 500 MG TAB PO SCH (22:35)
[2018-08-03] MEDS: LEVOTHYROXINE 125MCG TABLET (0.125MG) PO SCH (22:36)
[2018-08-04 06:00] VITALS: BP 125/59
[2018-08-04] MEDS: NS 1,000 ML IV SCH ×2 (06:00→17:24)
[2018-08-04] MEDS: SODIUM CHLORIDE 0.9% INJ 10 ML SYR IV SCH ×2 (06:00→17:19)
[2018-08-04] MEDS: HEPARIN SOD (PORCINE) 5000 UNITS/ML VIAL SC SCH ×3 (06:00→23:21)
[2018-08-04 06:41] LABS: BASO # 0.1 10^3/uL (0.0-0.2); BASO % 1.2 % (0.0-1.0); EOS # 0.5 10^3/uL (0.0-0.50); EOS % 6.1 % (0.0-3.0); HEMATOCRIT 27.1 % (36.0-47.0); HEMOGLOBIN 8.5 g/dl (12.0-15.5); LYMPH # 1.7 10^3/uL (1.5-4.5); LYMPH % 22.3 % (24.0-44.0); MEAN CORPUSCULAR HEMOGLOBIN 25.3 pg (27.0-33.0); MEAN CORPUSCULAR HGB CONC 31.4 g/dl (32.0-36.5); MEAN CORPUSCULAR VOLUME 80.7 fl (80.0-96.0); MONO # 0.9 10^3/uL (0.0-0.8); MONO % 11.3 % (0.0-5.0); NEUTROPHILS # 4.4 10^3/uL (1.8-7.7); PLATELET COUNT, AUTOMATED 571 10^3/uL (150-450); RED BLOOD COUNT 3.36 10^6/uL (4.00-5.40); WHITE BLOOD COUNT 7.5 10^3/uL (4.0-10.0)
[2018-08-04 06:50] LABS: BLOOD UREA NITROGEN 9 MG/DL (7-18); CALCIUM LEVEL 7.1 MG/DL (8.8-10.2); CARBON DIOXIDE LEVEL 17 MEQ/L (21-32); CHLORIDE LEVEL 114 MEQ/L (98-107); CREATININE FOR GFR 0.62 MG/DL (0.55-1.30); GLOMERULAR FILTRATION RATE > 60.0 (>32); GLUCOSE, FASTING 69 MG/DL (70-100); MAGNESIUM LEVEL 1.7 MG/DL (1.8-2.4); POTASSIUM SERUM 3.6 MEQ/L (3.5-5.1); SODIUM LEVEL 141 MEQ/L (136-145)
[2018-08-04] MEDS ORDERED: MAG SULF 1GM/100ML (MAG RUN) 1 GM in APPROPRIATE DILUENT 1 EA IV ONE (07:15)
[2018-08-04 07:32] LABS: C REACTIVE PROTEIN QUANTITATIV 6.75 MG/DL (0.00-0.30)
--- NOTE | 2018-08-04 08:08 | IPNPDOC ---
Text Note Date of Service The patient was seen on 08/04/18. NOTE Subjective: Patient seen and examined at bedside. No new medical complaints this morning. No acute overnight events reported. Objective: Vitals (See below) General: Lying in bed, no acute distress, comfortable, AAOx3 HEENT: NC, AT, edentulous CVS: RRR, +S1S2 Lungs: Fair air entry b/l, auscultation is without any wheezing, rales or rhonchi Abdomen: Soft, abdomen, remains nondistended, nontender Back: + Sacral decubitus ulcers (Stage IV) - wound VAC Extremities: Chronic edema with chronic venous stasis changes bilaterally and ulcers on R leg - dressing remains in place - right foot, - Calf tenderness Assessment and plan: Patient is an 78-year-old female with a PMHx Obesity, CAD, HTN, DLP, Hypothyroidism, CKD3, Chronic LE edema, Recurrent cellulitis of LE, Stage IV decubitus ulcers, Hx of Bladder CA, who presents to the ER with pain on her R foot and difficulty with mobility. Patient has very poor compliance with therapy as an outpatient. She is bedbound at baseline. . She has stopped falling Dr. Omer because of disagreements. Previous admissions have revealed MRSA positive wounds. #Sepsis/osteomyelitis of coccyx + distal sacrum - likely 2/2 Right leg cellulitis / Stage IV decubitus ulcers, possibly 2/2 osteomyelitis of sacrum; less likely 2/2 UTI - Pain has somewhat improved - Sacral decubitus ulcer with wound vac in place; dressing will be changed today - s/p Leukocytosis and Lactic acidosis; CRP, stable - UA with equivocal signs of infection - Blood cultures 07/26: no growth at 5 days; Urine cultures 07/26: Yeast like organisms - Wound culture 07/29: Proteus Mirabilis - c/w Ceftriaxone; s/p Vancomycin and Zosyn (Antibiotic day #8); s/p PICC line placement (07/29) - s/p Debridement on 07/28/18 - Wound care, Surgery and ID on consult; appreciate their input #Hyponatremia - likely 2/2 hypotonic - possibly 2/2 hypovolemia - resolved - Serum osmolality noted to be low - Thyroid function noted; cortisol level pending - Will restart IV fluids - Will continue to monitor #CAD - ASA #HTN - Has not been taking BP medications - Will continue to monitor #DLP - c/w Rosuvastatin #Hypothyroidism - c/w Levothyroxine #CKD3 - Cr baseline of 1.5-1.6 - Better than baseline #Chronic LE edema - c/w Wound care #Hx of Bladder CA #Anxiety - c/w Hydroxyzine #Obesity - Complicating medical care #Poor compliance - Has refused physical therapy to come to her home - Has stopped seeing wound care (Dr. Omer) because of disagreements - PFS on board for likely sub-acute rehabilitation / wound care / prolonged antibiotics #DVT prophylaxis - c/w Heparin Disposition: - continue IV Abx for osteo; ID f/u; wound care; pending placement VS,Fishbone, I+O VS, Fishbone, I+O Laboratory Tests 08/04/18 06:01 Red Blood Count 3.36 L, Mean Corpuscular Volume 80.7, Mean Corpuscular H emoglobin 25.3 L, Mean Corpuscular Hemoglobin Concent 31.4 L, Red Cell Distribution Width 19.0 H, Neutrophils (%) (Auto) 58.0, Lymphocytes (%) (Auto) 22.3 L, Monocytes (%) (Auto) 11.3 H, Eosinophils (%) (Auto) 6.1 H, Basophils (%) (Auto) 1.2 H, Neutrophils # (Auto) 4.4, Lymphocytes # (Auto) 1.7, Monocytes # (Auto) 0.9 H, Eosinophils # (Auto) 0.5, Basophils # (Auto) 0.1, Calcium Level 7.1 #L Vital Signs Date Time Temp Pulse Resp B/P (MAP) Pulse Ox O2 Delivery O2 Flow Rate FiO2 08/04/18 06:00 96.9 95 16 125/59 (81) 99 Room Air I&O- Last 24 Hours up to 6 AM 08/04/18 06:00 Intake Total 1670 ml Output Total 1050 ml Balance 620 ml KASHMIR MARTINEZ MD Aug 04, 2018 08:08
[2018-08-04 08:45] LABS: ERYTHROCYTE SEDIMENTATION RATE 107 mm/hr (0-30)
[2018-08-04] MEDS: ASPIRIN 81 MG ENTERIC TAB PO SCH (10:01)
[2018-08-04] MEDS: FERROUS SULFATE 325MG TAB PO SCH (10:01)
[2018-08-04] MEDS: ROSUVASTATIN 10 MG TAB (CRESTOR) PO SCH (10:01)
[2018-08-04] MEDS: LACTOBACILLUS ACIDOPHILUS CAP (BACID) PO SCH (10:01)
[2018-08-04] MEDS: POTASSIUM CHLORIDE 10 MEQ SR TABLET PO SCH (10:01)
[2018-08-04] MEDS: NYSTATIN 100,000 UNITS/GM TOPICAL PWD 15 GM TOP SCH ×2 (10:02→20:01)
[2018-08-04] MEDS: PERCOCET 5MG/325MG TAB PO PRN ×2 (10:03→20:00)
[2018-08-04] MEDS: cefTRIAXone SOD 2 GM in D5W MINI-BAG PLUS 50 ML IV SCH (11:11)
[2018-08-04 14:00] VITALS: BP 122/70
[2018-08-04] MEDS: LEVOTHYROXINE 125MCG TABLET (0.125MG) PO SCH (20:00)
[2018-08-04] MEDS: MAGNESIUM GLUCONATE 500 MG TAB PO SCH (20:00)
[2018-08-04 22:00] VITALS: BP 129/54
[2018-08-05] MEDS: SODIUM CHLORIDE 0.9% INJ 10 ML SYR IV SCH ×2 (05:17→17:24)
[2018-08-05] MEDS: HEPARIN SOD (PORCINE) 5000 UNITS/ML VIAL SC SCH (05:17)
[2018-08-05 05:47] LABS: BASO # 0.1 10^3/uL (0.0-0.2); EOS # 0.3 10^3/uL (0.0-0.50); EOS % 4.6 % (0.0-3.0); HEMATOCRIT 23.8 % (36.0-47.0); HEMOGLOBIN 7.5 g/dl (12.0-15.5); LYMPH # 1.6 10^3/uL (1.5-4.5); LYMPH % 22.7 % (24.0-44.0); MEAN CORPUSCULAR HEMOGLOBIN 25.4 pg (27.0-33.0); MEAN CORPUSCULAR HGB CONC 31.5 g/dl (32.0-36.5); MEAN CORPUSCULAR VOLUME 80.7 fl (80.0-96.0); MONO # 0.8 10^3/uL (0.0-0.8); MONO % 12.1 % (0.0-5.0); NEUTROPHILS # 4.1 10^3/uL (1.8-7.7); NEUTROPHILS % 58.7 % (36.0-66.0); PLATELET COUNT, AUTOMATED 505 10^3/uL (150-450); RED BLOOD COUNT 2.95 10^6/uL (4.00-5.40); WHITE BLOOD COUNT 6.9 10^3/uL (4.0-10.0)
[2018-08-05 06:00] VITALS: BP 116/56
[2018-08-05 06:11] LABS: ALBUMIN 1.3 GM/DL (3.2-5.2); ALT/SGPT < 6 U/L (12-78); BILIRUBIN,TOTAL 0.1 MG/DL (0.2-1.0); BLOOD UREA NITROGEN 7 MG/DL (7-18); C REACTIVE PROTEIN QUANTITATIV 6.37 MG/DL (0.00-0.30); CALCIUM LEVEL 7.5 MG/DL (8.8-10.2); CARBON DIOXIDE LEVEL 21 MEQ/L (21-32); CHLORIDE LEVEL 111 MEQ/L (98-107); CREATININE FOR GFR 0.65 MG/DL (0.55-1.30); GLOMERULAR FILTRATION RATE > 60.0 (>32); GLUCOSE, FASTING 73 MG/DL (70-100); POTASSIUM SERUM 4.1 MEQ/L (3.5-5.1); SODIUM LEVEL 141 MEQ/L (136-145); TOTAL PROTEIN 4.8 GM/DL (6.4-8.2)
[2018-08-05 06:40] LABS: ERYTHROCYTE SEDIMENTATION RATE 126 mm/hr (0-30)
[2018-08-05 07:37] LABS: MAGNESIUM LEVEL 2.2 MG/DL (1.8-2.4)
--- NOTE | 2018-08-05 07:47 | IPNPDOC ---
Text Note Date of Service The patient was seen on 08/05/18. NOTE Subjective: Patient seen and examined at bedside. No new medical complaints this morning. No acute overnight events reported. Denies shortness of breath, chest pain, headaches, dizziness. She states she has been transfused blood in the past. Objective: Vitals (See below) General: Lying in bed, no acute distress, comfortable, AAOx3 HEENT: NC, AT, edentulous CVS: RRR, +S1S2 Lungs: CTA B/L Abdomen: soft, NT, obese, +BS Back: + Sacral decubitus ulcers (Stage IV) - wound VAC in place Extremities: Chronic edema with chronic venous stasis changes bilaterally and ulcers on R leg - dressings in place Assessment and plan: Patient is an 78-year-old female with a PMHx morbid besity, CAD, HTN, DLP, Hypothyroidism, CKD3, Chronic LE edema, Recurrent cellulitis of LE, Stage IV decubitus ulcers, Hx of Bladder CA, who presents to the ER with pain on her R foot and difficulty with mobility. Patient has very poor compliance with therapy as an outpatient. She is bedbound at baseline. . She has stopped falling Dr. Omer because of disagreements. Previous admissions have revealed MRSA positive wounds. #Sepsis/osteomyelitis of coccyx + distal sacrum - likely 2/2 Right leg cellulitis / Stage IV decubitus ulcers - Sacral decubitus ulcer with wound vac in place - continuing with wound care - s/p Leukocytosis and Lactic acidosis; CRP trending down - BCx negative - c/w Ceftriaxone 2gIV q24h - pending ID f/u for duration; s/p PICC line placement (07/29) - s/p Debridement on 07/28/18 - Wound care, Surgery and ID on consult; appreciate their input - Wound culture 07/29: Proteus Mirabilis #anemia - asymptomatic - transfuse 1 unit PRBC today - informed consent obtained at bedside - continue monitor H/H - heparin prophylaxis discontinued #UA? - UA with equivocal signs of infection Urine cultures 07/26: Yeast like organisms #Hyponatremia - resolved #CAD - ASA #HTN - Has not been taking BP medications - Will continue to monitor #DLP - c/w Rosuvastatin #Hypothyroidism - c/w Levothyroxine #CKD3 - Cr baseline of 1.5-1.6 - Better than baseline #Chronic LE edema - c/w Wound care #Hx of Bladder CA #Anxiety - c/w Hydroxyzine #Obesity - Complicating medical care #Poor compliance - Has refused physical therapy to come to her home - Has stopped seeing wound care (Dr. Omer) because of disagreements - PFS on board for likely sub-acute rehabilitation / wound care / prolonged antibiotics #DVT prophylaxis - c/w Heparin Disposition: - continue IV Abx for osteo; ID f/u; wound care; transfuse PRBC; pending placement VS,Fishbone, I+O VS, Fishbone, I+O Laboratory Tests 08/05/18 05:19 Red Blood Count 2.95 L, Mean Corpuscular Volume 80.7, Mean Corpuscular Hemoglobin 25.4 L, Mean Corpuscular Hemoglobin Concent 31.5 L, Red Cell Distribution Width 19.4 H, Neutrophils (%) (Auto) 58.7, Lymphocytes (%) (Auto) 22.7 L, Monocytes (%) (Auto) 12.1 H, Eosinophils (%) (Auto) 4.6 H, Basophils (%) (Auto) 1.0, Neutrophils # (Auto) 4.1, Lymphocytes # (Auto) 1.6, Monocytes # (Auto) 0.8, Eosinophils # (Auto) 0.3, Basophils # (Auto) 0.1, Calcium Level 7.5 L, Aspartate Amino Transf (AST/SGOT) 11, Alanine Aminotransferase (ALT/SGPT) < 6 L, Alkaline Phosphatase 132 H, Total Bilirubin 0.1 L, Total Protein 4.8 L, Albumin 1.3 L Vital Signs Date Time Temp Pulse Resp B/P (MAP) Pulse Ox O2 Delivery O2 Flow Rate FiO2 08/05/18 06:00 97.3 74 18 116/56 (76) 96 Room Air I&O- Last 24 Hours up to 6 AM 08/05/18 06:00 Intake Total 990 ml Output Total 975 ml Balance 15 ml KASHMIR MARTINEZ MD Aug 05, 2018 07:47
[2018-08-05] MEDS: cefTRIAXone SOD 2 GM in D5W MINI-BAG PLUS 50 ML IV SCH (09:00)
[2018-08-05] MEDS: NYSTATIN 100,000 UNITS/GM TOPICAL PWD 15 GM TOP SCH ×2 (09:00→22:02)
[2018-08-05] MEDS: ASPIRIN 81 MG ENTERIC TAB PO SCH (09:01)
[2018-08-05] MEDS: ROSUVASTATIN 10 MG TAB (CRESTOR) PO SCH (09:01)
[2018-08-05] MEDS: POTASSIUM CHLORIDE 10 MEQ SR TABLET PO SCH (09:01)
[2018-08-05] MEDS: FERROUS SULFATE 325MG TAB PO SCH (09:01)
[2018-08-05] MEDS: LACTOBACILLUS ACIDOPHILUS CAP (BACID) PO SCH (09:01)
[2018-08-05] MEDS: ONDANSETRON 4 MG TAB (S0181) PO PRN (09:10)
[2018-08-05] MEDS: NS 1,000 ML IV SCH (09:40)
[2018-08-05 14:00] VITALS: BP 120/60
[2018-08-05] MEDS: PERCOCET 5MG/325MG TAB PO PRN (17:45)
[2018-08-05 22:00] VITALS: BP 122/59
[2018-08-05] MEDS: LEVOTHYROXINE 125MCG TABLET (0.125MG) PO SCH (22:02)
[2018-08-05] MEDS: MAGNESIUM GLUCONATE 500 MG TAB PO SCH (22:02)
[2018-08-06] MEDS: PERCOCET 5MG/325MG TAB PO PRN ×4 (01:26→23:05)
[2018-08-06] MEDS: NS 1,000 ML IV SCH ×3 (03:15→23:06)
[2018-08-06] MEDS: SODIUM CHLORIDE 0.9% INJ 10 ML SYR IV SCH ×2 (05:02→17:00)
[2018-08-06 05:12] LABS: BASO # 0.1 10^3/uL (0.0-0.2); BASO % 0.9 % (0.0-1.0); EOS # 0.3 10^3/uL (0.0-0.50); EOS % 4.7 % (0.0-3.0); HEMATOCRIT 29.9 % (36.0-47.0); HEMOGLOBIN 9.4 g/dl (12.0-15.5); LYMPH # 1.7 10^3/uL (1.5-4.5); LYMPH % 25.8 % (24.0-44.0); MEAN CORPUSCULAR HEMOGLOBIN 25.9 pg (27.0-33.0); MEAN CORPUSCULAR HGB CONC 31.4 g/dl (32.0-36.5); MEAN CORPUSCULAR VOLUME 82.4 fl (80.0-96.0); MONO # 0.9 10^3/uL (0.0-0.8); MONO % 12.9 % (0.0-5.0); NEUTROPHILS # 3.6 10^3/uL (1.8-7.7); NEUTROPHILS % 54.9 % (36.0-66.0); PLATELET COUNT, AUTOMATED 498 10^3/uL (150-450); RED BLOOD COUNT 3.63 10^6/uL (4.00-5.40); WHITE BLOOD COUNT 6.6 10^3/uL (4.0-10.0)
[2018-08-06 05:44] LABS: ALBUMIN 1.4 GM/DL (3.2-5.2); ALT/SGPT < 6 U/L (12-78); BILIRUBIN,TOTAL 0.2 MG/DL (0.2-1.0); BLOOD UREA NITROGEN 6 MG/DL (7-18); CALCIUM LEVEL 8.1 MG/DL (8.8-10.2); CARBON DIOXIDE LEVEL 22 MEQ/L (21-32); CHLORIDE LEVEL 110 MEQ/L (98-107); CREATININE FOR GFR 0.67 MG/DL (0.55-1.30); GLOMERULAR FILTRATION RATE > 60.0 (>32); GLUCOSE, FASTING 78 MG/DL (70-100); POTASSIUM SERUM 4.6 MEQ/L (3.5-5.1); SODIUM LEVEL 139 MEQ/L (136-145); TOTAL PROTEIN 5.1 GM/DL (6.4-8.2)
[2018-08-06 06:00] VITALS: BP 123/69
[2018-08-06] MEDS: POTASSIUM CHLORIDE 10 MEQ SR TABLET PO SCH (08:24)
[2018-08-06] MEDS: ROSUVASTATIN 10 MG TAB (CRESTOR) PO SCH (08:24)
[2018-08-06] MEDS: ASPIRIN 81 MG ENTERIC TAB PO SCH (08:24)
[2018-08-06] MEDS: NYSTATIN 100,000 UNITS/GM TOPICAL PWD 15 GM TOP SCH ×2 (08:24→20:49)
[2018-08-06] MEDS: LACTOBACILLUS ACIDOPHILUS CAP (BACID) PO SCH (08:24)
[2018-08-06] MEDS: FERROUS SULFATE 325MG TAB PO SCH (08:24)
[2018-08-06] MEDS: cefTRIAXone SOD 2 GM in D5W MINI-BAG PLUS 50 ML IV SCH (09:49)
[2018-08-06 14:00] VITALS: BP 82/45
--- NOTE | 2018-08-06 16:16 | IPN ---
DATE: 08/06/2018 Mrs. Mclaughlin was seen today with dressing changes. The wound vacuum-assisted closure (VAC) was changed by Cindy Hill RN. The patient has no new complaint except for pain with dressing changes. She has had no fever or chills. No nausea, vomiting, or diarrhea. No abdominal pain. Her only complaints are pain. LABORATORY DATA: White count is 6.6, hemoglobin 9.4, hematocrit 29.9, platelets 498. ESR 126. Sodium 139, potassium 4.6, chloride 110, bicarbonate 22, BUN 6, creatinine 0.67, glucose 78, calcium 8.1. AST 12, ALT less than 6, alkaline phosphatase 158, total protein 5.1, albumin 1.4. Vancomycin trough 11.1. Temperature is 96.6, pulse 81, respirations 18, blood pressure 82/45, oxygen saturation 93% on room air. HEART: Normal S1, S2. No murmurs. LUNGS: Clear. No wheezes, rales, or rhonchi. ABDOMEN: Morbidly obese, soft, nontender. EXTREMITIES: Lower extremity trace edema. Right leg cellulitis has completely resolved. Ulcer on big toe is healing well. There is still an eschar, measuring about 3 cm in length with granulation tissue. Sacral decubitus ulcer, about 15 x 15 cm, with slough in 50% of the wound. There is bleeding surrounding the decubitus ulcer. There is purulent discharge in the wound, but in general that has improved. IMPRESSION: 1. Sacral decubitus ulcer with presumptive osteomyelitis, slowly improving. 2. Multiple decubitus ulcers on back and thigh have decreased in size with Optifoam dressing. 3. Right lower extremity cellulitis has resolved. 4. Morbid obesity. PLAN: Continue wound VAC. Continue intravenous (IV) Rocephin for culture-positive Proteus mirabilis for a total of 30 days. The patient's plan is to be transferred to senior living for rehabilitation, wound VAC, and IV antibiotics. Monitor complete blood count (CBC), basic, C-reactive protein (CRP), erythrocyte sedimentation rate (ESR) weekly.
--- NOTE | 2018-08-06 18:12 | REP ---
Clinical: Right lower extremity pain and swelling with cellulitis . Technique: Gomez scale and color Doppler evaluation using linear high frequency transducer. Findings: Ultrasound examination of the right lower extremity deep venous structures from the common femoral vein to the popliteal vein demonstrates normal compressibility flow and wave patterns in response to respiration and augmentation. There is no evidence for deep venous thrombosis. Impression: No evidence for deep venous thrombosis right lower extremity . Electronically Signed by Ethan Leone MD 08/06/2018 06:03 P
[2018-08-06] MEDS: LEVOTHYROXINE 125MCG TABLET (0.125MG) PO SCH (20:48)
[2018-08-06] MEDS: MAGNESIUM GLUCONATE 500 MG TAB PO SCH (20:48)
[2018-08-06 22:00] VITALS: BP 107/51
[2018-08-07] MEDS: SODIUM CHLORIDE 0.9% INJ 10 ML SYR IV SCH ×2 (05:31→17:34)
[2018-08-07 05:42] LABS: BASO # 0.1 10^3/uL (0.0-0.2); EOS # 0.4 10^3/uL (0.0-0.50); EOS % 5.6 % (0.0-3.0); HEMATOCRIT 30.8 % (36.0-47.0); HEMOGLOBIN 9.6 g/dl (12.0-15.5); LYMPH # 1.8 10^3/uL (1.5-4.5); LYMPH % 24.9 % (24.0-44.0); MEAN CORPUSCULAR HGB CONC 31.2 g/dl (32.0-36.5); MEAN CORPUSCULAR VOLUME 83.5 fl (80.0-96.0); MONO # 0.9 10^3/uL (0.0-0.8); MONO % 12.9 % (0.0-5.0); NEUTROPHILS % 55.2 % (36.0-66.0); PLATELET COUNT, AUTOMATED 489 10^3/uL (150-450); RED BLOOD COUNT 3.69 10^6/uL (4.00-5.40); WHITE BLOOD COUNT 7.2 10^3/uL (4.0-10.0)
[2018-08-07 06:00] VITALS: BP 128/59
[2018-08-07 06:09] LABS: ALBUMIN 1.1 GM/DL (3.2-5.2); ALT/SGPT 6 U/L (12-78); BILIRUBIN,TOTAL 0.1 MG/DL (0.2-1.0); BLOOD UREA NITROGEN 6 MG/DL (7-18); CALCIUM LEVEL 6.8 MG/DL (8.8-10.2); CARBON DIOXIDE LEVEL 18 MEQ/L (21-32); CHLORIDE LEVEL 117 MEQ/L (98-107); CREATININE FOR GFR 0.48 MG/DL (0.55-1.30); GLOMERULAR FILTRATION RATE > 60.0 (>32); GLUCOSE, FASTING 62 MG/DL (70-100); POTASSIUM SERUM 3.9 MEQ/L (3.5-5.1); SODIUM LEVEL 143 MEQ/L (136-145); TOTAL PROTEIN 4.2 GM/DL (6.4-8.2)
[2018-08-07] MEDS: PERCOCET 5MG/325MG TAB PO PRN ×3 (06:54→20:43)
[2018-08-07] MEDS: LACTOBACILLUS ACIDOPHILUS CAP (BACID) PO SCH (09:56)
[2018-08-07] MEDS: ROSUVASTATIN 10 MG TAB (CRESTOR) PO SCH (09:57)
[2018-08-07] MEDS: FERROUS SULFATE 325MG TAB PO SCH (09:57)
[2018-08-07] MEDS: NYSTATIN 100,000 UNITS/GM TOPICAL PWD 15 GM TOP SCH ×2 (09:57→20:43)
[2018-08-07] MEDS: POTASSIUM CHLORIDE 10 MEQ SR TABLET PO SCH (09:57)
[2018-08-07] MEDS: ASPIRIN 81 MG ENTERIC TAB PO SCH (09:57)
[2018-08-07] MEDS: cefTRIAXone SOD 2 GM in D5W MINI-BAG PLUS 50 ML IV SCH (09:58)
--- NOTE | 2018-08-07 10:12 | IPNPDOC ---
Text Note Date of Service The patient was seen on 08/06/18. NOTE Subjective: Patient seen and examined at bedside. No new medical complaints this morning. No acute overnight events reported. Denies shortness of breath, chest pain, headaches, dizziness. She states she has been transfused blood in the past. Objective: Vitals (See below) General: Lying in bed, no acute distress, comfortable, AAOx3 HEENT: NC, AT, edentulous CVS: RRR, +S1S2 Lungs: CTA B/L Abdomen: soft, NT, obese, +BS Back: + Sacral decubitus ulcers (Stage IV) - wound VAC in place Extremities: Chronic edema with chronic venous stasis changes bilaterally and ulcers on R leg - dressings in place Assessment and plan: Patient is an 78-year-old female with a PMHx morbid besity, CAD, HTN, DLP, Hypothyroidism, CKD3, Chronic LE edema, Recurrent cellulitis of LE, Stage IV decubitus ulcers, Hx of Bladder CA, who presents to the ER with pain on her R foot and difficulty with mobility. Patient has very poor compliance with therapy as an outpatient. She is bedbound at baseline. . She has stopped falling Dr. Omer because of disagreements. Previous admissions have revealed MRSA positive wounds. #Sepsis/osteomyelitis of coccyx + distal sacrum - likely 2/2 Right leg cellulitis / Stage IV decubitus ulcers - Sacral decubitus ulcer with wound vac in place - continuing with wound care - s/p Leukocytosis and Lactic acidosis; CRP trending down - BCx negative - c/w Ceftriaxone 2gIV q24h - pending ID f/u for duration; s/p PICC line placement (07/29) - s/p Debridement on 07/28/18 - Wound care, Surgery and ID on consult; appreciate their input - Wound culture 07/29: Proteus Mirabilis #anemia - asymptomatic - s/p 1 unit PRBC - continue monitor H/H - heparin prophylaxis discontinued #UA? - UA with equivocal signs of infection Urine cultures 07/26: Yeast like organisms #Hyponatremia - resolved #CAD - ASA #HTN - Has not been taking BP medications - Will continue to monitor #DLP - c/w Rosuvastatin #Hypothyroidism - c/w Levothyroxine #CKD3 - Cr baseline of 1.5-1.6 - Better than baseline #Chronic LE edema - c/w Wound care #Hx of Bladder CA #Anxiety - c/w Hydroxyzine #Obesity - Complicating medical care #Poor compliance - Has refused physical therapy to come to her home - Has stopped seeing wound care (Dr. Omer) because of disagreements - PFS on board for likely sub-acute rehabilitation / wound care / prolonged antibiotics #DVT prophylaxis Disposition: - continue IV Abx for osteo; ID f/u; wound care; pending placement VS,Fishbone, I+O VS, Fishbone, I+O Laboratory Tests 08/07/18 05:28 Red Blood Count 3.69 L, Mean Corpuscular Volume 83.5, Mean Corpuscular Hemoglobin 26.0 L, Mean Corpuscular Hemoglobin Concent 31.2 L, Red Cell Distribution Width 19.2 H, Neutrophils (%) (Auto) 55.2, Lymphocytes (%) (Auto) 24.9, Monocytes (%) (Auto) 12.9 H, Eosinophils (%) (Auto) 5.6 H, Basophils (%) (Auto) 1.0, Neutrophils # (Auto) 4.0, Lymphocytes # (Auto) 1.8, Monocytes # (Auto) 0.9 H, Eosinophils # (Auto) 0.4, Basophils # (Auto) 0.1, Calcium Level 6.8 #L, Aspartate Amino Transf (AST/SGOT) 8, Alanine Aminotransferase (ALT/SGPT) 6 L, Alkaline Phosphatase 124 H, Total Bilirubin 0.1 L, Total Protein 4.2 L, Albumin 1.1 #L Vital Signs Date Time Temp Pulse Resp B/P (MAP) Pulse Ox O2 Delivery O2 Flow Rate FiO2 08/07/18 07:45 18 08/07/18 06:54 Room Air 08/07/18 06:00 96.3 73 128/59 (82) 100 I&O- Last 24 Hours up to 6 AM 08/07/18 06:00 Intake Total 840 ml Output Total 1450 ml Balance -610 ml KASHMIR MARTINEZ MD Aug 07, 2018 10:12
--- NOTE | 2018-08-07 10:49 | IPNPDOC ---
Text Note Date of Service The patient was seen on 08/07/18. NOTE Subjective: Patient seen and examined at bedside. No new medical complaints this morning. No acute overnight events reported. Denies shortness of breath, chest pain, headaches, dizziness. Objective: Vitals (See below) General: Lying in bed, no acute distress, comfortable, AAOx3 HEENT: NC, AT, edentulous CVS: RRR, +S1S2 Lungs: CTA B/L Abdomen: soft, NT, obese, +BS Back: + Sacral decubitus ulcers (Stage IV) - wound VAC in place Extremities: Chronic edema with chronic venous stasis changes bilaterally and ulcers on R leg - dressings in place Assessment and plan: Patient is an 78-year-old female with a PMHx morbid besity, CAD, HTN, DLP, Hypothyroidism, CKD3, Chronic LE edema, Recurrent cellulitis of LE, Stage IV decubitus ulcers, Hx of Bladder CA, who presents to the ER with pain on her R foot and difficulty with mobility. Patient has very poor compliance with therapy as an outpatient. She is bedbound at baseline. . She has stopped falling Dr. Omer because of disagreements. Previous admissions have revealed MRSA positive wounds. #Sepsis/osteomyelitis of coccyx + distal sacrum - Sacral decubitus ulcer with wound vac in place - improving - continuing with wound care - s/p Leukocytosis and Lactic acidosis; CRP trending down - BCx negative - c/w Ceftriaxone 2gIV q24h - ID f/u appreciated - 30 day duration for Abx; s/p PICC line placement (07/29) - s/p Debridement on 07/28/18 - Wound care, Surgery and ID on consult; appreciate their input - Wound culture 07/29: Proteus Mirabilis #anemia - asymptomatic - s/p 1 unit PRBC - continue monitor H/H - heparin prophylaxis discontinued #UA? - UA with equivocal signs of infection Urine cultures 07/26: Yeast like organisms #Hyponatremia - resolved #CAD - ASA #HTN - Has not been taking BP medications - Will continue to monitor #DLP - c/w Rosuvastatin #Hypothyroidism - c/w Levothyroxine #CKD3 - Cr baseline of 1.5-1.6 - Better than baseline #Chronic LE edema - c/w Wound care #Hx of Bladder CA #Anxiety - c/w Hydroxyzine #Obesity - Complicating medical care #Poor compliance - Has refused physical therapy to come to her home - Has stopped seeing wound care (Dr. Omer) because of disagreements - PFS on board for likely sub-acute rehabilitation / wound care / prolonged an tibiotics #DVT prophylaxis Disposition: - continue IV Abx for osteo; wound care; pending placement VS,Fishbone, I+O VS, Fishbone, I+O Laboratory Tests 08/07/18 05:28 Red Blood Count 3.69 L, Mean Corpuscular Volume 83.5, Mean Corpuscular Hemoglobin 26.0 L, Mean Corpuscular Hemoglobin Concent 31.2 L, Red Cell Distribution Width 19.2 H, Neutrophils (%) (Auto) 55.2, Lymphocytes (%) (Auto) 24.9, Monocytes (%) (Auto) 12.9 H, Eosinophils (%) (Auto) 5.6 H, Basophils (%) (Auto) 1.0, Neutrophils # (Auto) 4.0, Lymphocytes # (Auto) 1.8, Monocytes # (Auto) 0.9 H, Eosinophils # (Auto) 0.4, Basophils # (Auto) 0.1, Calcium Level 6.8 #L, Aspartate Amino Transf (AST/SGOT) 8, Alanine Aminotransferase (ALT/SGPT) 6 L, Alkaline Phosphatase 124 H, Total Bilirubin 0.1 L, Total Protein 4.2 L, Albumin 1.1 #L Vital Signs Date Time Temp Pulse Resp B/P (MAP) Pulse Ox O2 Delivery O2 Flow Rate FiO2 08/07/18 07:45 18 08/07/18 06:54 Room Air 08/07/18 06:00 96.3 73 128/59 (82) 100 I&O- Last 24 Hours up to 6 AM 08/07/18 06:00 Intake Total 840 ml Output Total 1450 ml Balance -610 ml KASHMIR MARTINEZ MD Aug 07, 2018 10:49
[2018-08-07 16:00] VITALS: BP 111/50
[2018-08-07] MEDS: LEVOTHYROXINE 125MCG TABLET (0.125MG) PO SCH (20:43)
[2018-08-07] MEDS: MAGNESIUM GLUCONATE 500 MG TAB PO SCH (20:43)
[2018-08-07 22:00] VITALS: BP 121/57
[2018-08-08] MEDS: PERCOCET 5MG/325MG TAB PO PRN ×4 (03:37→22:15)
[2018-08-08] MEDS: NS 1,000 ML IV SCH ×2 (04:20→22:15)
[2018-08-08 05:26] LABS: BASO # 0.1 10^3/uL (0.0-0.2); BASO % 0.8 % (0.0-1.0); EOS # 0.3 10^3/uL (0.0-0.50); EOS % 3.9 % (0.0-3.0); HEMATOCRIT 27.6 % (36.0-47.0); HEMOGLOBIN 8.6 g/dl (12.0-15.5); LYMPH # 1.4 10^3/uL (1.5-4.5); LYMPH % 18.2 % (24.0-44.0); MEAN CORPUSCULAR HEMOGLOBIN 26.3 pg (27.0-33.0); MEAN CORPUSCULAR HGB CONC 31.2 g/dl (32.0-36.5); MEAN CORPUSCULAR VOLUME 84.4 fl (80.0-96.0); MONO % 12.8 % (0.0-5.0); NEUTROPHILS # 4.9 10^3/uL (1.8-7.7); NEUTROPHILS % 63.8 % (36.0-66.0); PLATELET COUNT, AUTOMATED 428 10^3/uL (150-450); RED BLOOD COUNT 3.27 10^6/uL (4.00-5.40); WHITE BLOOD COUNT 7.7 10^3/uL (4.0-10.0)
[2018-08-08] MEDS: SODIUM CHLORIDE 0.9% INJ 10 ML SYR IV SCH ×2 (05:34→15:51)
[2018-08-08 05:51] LABS: ALBUMIN 1.2 GM/DL (3.2-5.2); ALT/SGPT 9 U/L (12-78); BILIRUBIN,TOTAL 0.2 MG/DL (0.2-1.0); BLOOD UREA NITROGEN 6 MG/DL (7-18); CALCIUM LEVEL 7.3 MG/DL (8.8-10.2); CARBON DIOXIDE LEVEL 20 MEQ/L (21-32); CHLORIDE LEVEL 113 MEQ/L (98-107); CREATININE FOR GFR 0.61 MG/DL (0.55-1.30); GLOMERULAR FILTRATION RATE > 60.0 (>32); GLUCOSE, FASTING 74 MG/DL (70-100); POTASSIUM SERUM 4.2 MEQ/L (3.5-5.1); SODIUM LEVEL 140 MEQ/L (136-145); TOTAL PROTEIN 4.6 GM/DL (6.4-8.2)
[2018-08-08 06:00] VITALS: BP 124/56
--- NOTE | 2018-08-08 08:35 | IPNPDOC ---
Text Note Date of Service The patient was seen on 08/08/18. NOTE Subjective: Patient seen and examined at bedside. No new medical complaints this morning, but does state she feels tired. No acute overnight events reported. Denies shortness of breath, chest pain, headaches, dizziness. Objective: Vitals (See below) General: Lying in bed, no acute distress, comfortable, AAOx3 HEENT: NC, AT, edentulous CVS: RRR, +S1S2 Lungs: CTA B/L Abdomen: soft, NT, obese, +BS Back: + Sacral decubitus ulcers (Stage IV) - wound VAC in place Extremities: Chronic edema with chronic venous stasis changes bilaterally and ulcers on R leg - dressings in place Assessment and plan: Patient is an 78-year-old female with a PMHx morbid besity, CAD, HTN, DLP, Hypothyroidism, CKD3, Chronic LE edema, Recurrent cellulitis of LE, Stage IV decubitus ulcers, Hx of Bladder CA, who presents to the ER with pain on her R foot and difficulty with mobility. Patient has very poor compliance with therapy as an outpatient. She is bedbound at baseline. . She has stopped falling Dr. Omer because of disagreements. Previous admissions have revealed MRSA positive wounds. #Sepsis/osteomyelitis of coccyx + distal sacrum - Sacral decubitus ulcer with wound vac in place - improving - continuing with wound care - s/p Leukocytosis and Lactic acidosis; CRP trending down - BCx negative - c/w Ceftriaxone 2gIV q24h - ID f/u appreciated - 30 day duration for Abx; s/p PICC line placement (07/29) - s/p Debridement on 07/28/18 - Wound care, Surgery and ID on consult; appreciate their input - Wound culture 07/29: Proteus Mirabilis #anemia - asymptomatic - s/p 1 unit PRBC - continue monitor H/H - slight drop today - repeat this afternoon - heparin prophylaxis discontinued #UA? - UA with equivocal signs of infection Urine cultures 07/26: Yeast like organisms #Hyponatremia - resolved #CAD - ASA #HTN - Has not been taking BP medications - Will continue to monitor #DLP - c/w Rosuvastatin #Hypothyroidism - c/w Levothyroxine #CKD3 - Cr baseline of 1.5-1.6 - Better than baseline #Chronic LE edema - c/w Wound care #Hx of Bladder CA #Anxiety - c/w Hydroxyzine #Obesity - Complicating medical care #Poor compliance - Has refused physical therapy to come to her home - Has stopped seeing wound care (Dr. Omer) because of disagreements - PFS on board for likely sub-acute rehabilitation / wound care / prolonged antibiotics #DVT prophylaxis Disposition: - continue IV Abx for osteo; wound care; pending placement VS,Fishbone, I+O VS, Fishbone, I+O Laboratory Tests 08/08/18 05:14 Red Blood Count 3.27 L, Mean Corpuscular Volume 84.4, Mean Corpuscular Hemoglobin 26.3 L, Mean Corpuscular Hemoglobin Concent 31.2 L, Red Cell Distribution Width 19.7 H, Neutrophils (%) (Auto) 63.8, Lymphocytes (%) (Auto) 18.2 L, Monocytes (%) (Auto) 12.8 H, Eosinophils (%) (Auto) 3.9 H, Basophils (%) (Auto) 0.8, Neutrophils # (Auto) 4.9, Lymphocytes # (Auto) 1.4 L, Monocytes # (Auto) 1.0 H, Eosinophils # (Auto) 0.3, Basophils # (Auto) 0.1, Calcium Level 7.3 L, Aspartate Amino Transf (AST/SGOT) 8, Alanine Aminotransferase (ALT/SGPT) 9 L, Alkaline Phosphatase 137 H, Total Bilirubin 0.2 #, Total Protein 4.6 L, Albumin 1.2 L Vital Signs Date Time Temp Pulse Resp B/P (MAP) Pulse Ox O2 Delivery O2 Flow Rate FiO2 08/08/18 06:00 97.1 78 18 124/56 (78) 93 Room Air I&O- Last 24 Hours up to 6 AM 08/08/18 06:00 Intake Total 960 ml Output Total 1400 ml Balance -440 ml KASHMIR MARTINEZ MD Aug 08, 2018 08:35
[2018-08-08] MEDS: ROSUVASTATIN 10 MG TAB (CRESTOR) PO SCH (09:14)
[2018-08-08] MEDS: cefTRIAXone SOD 2 GM in D5W MINI-BAG PLUS 50 ML IV SCH (09:14)
[2018-08-08] MEDS: ASPIRIN 81 MG ENTERIC TAB PO SCH (09:15)
[2018-08-08] MEDS: LACTOBACILLUS ACIDOPHILUS CAP (BACID) PO SCH (09:15)
[2018-08-08] MEDS: POTASSIUM CHLORIDE 10 MEQ SR TABLET PO SCH (09:15)
[2018-08-08] MEDS: FERROUS SULFATE 325MG TAB PO SCH (09:15)
[2018-08-08] MEDS: NYSTATIN 100,000 UNITS/GM TOPICAL PWD 15 GM TOP SCH ×2 (09:18→20:24)
[2018-08-08 14:00] VITALS: BP 111/50
[2018-08-08 20:00] VITALS: BP 120/58
[2018-08-08] MEDS: MAGNESIUM GLUCONATE 500 MG TAB PO SCH (20:24)
[2018-08-08] MEDS: LEVOTHYROXINE 125MCG TABLET (0.125MG) PO SCH (20:24)
[2018-08-09] MEDS: PERCOCET 5MG/325MG TAB PO PRN ×2 (05:04→10:48)
[2018-08-09] MEDS: SODIUM CHLORIDE 0.9% INJ 10 ML SYR IV SCH (05:04)
[2018-08-09 06:00] VITALS: BP 136/59
[2018-08-09 06:11] LABS: BASO # 0.1 10^3/uL (0.0-0.2); BASO % 0.9 % (0.0-1.0); EOS # 0.3 10^3/uL (0.0-0.50); EOS % 3.5 % (0.0-3.0); HEMATOCRIT 30.7 % (36.0-47.0); HEMOGLOBIN 9.5 g/dl (12.0-15.5); LYMPH # 1.7 10^3/uL (1.5-4.5); LYMPH % 20.9 % (24.0-44.0); MEAN CORPUSCULAR HEMOGLOBIN 26.2 pg (27.0-33.0); MEAN CORPUSCULAR HGB CONC 30.9 g/dl (32.0-36.5); MEAN CORPUSCULAR VOLUME 84.6 fl (80.0-96.0); MONO % 11.7 % (0.0-5.0); NEUTROPHILS # 5.2 10^3/uL (1.8-7.7); NEUTROPHILS % 62.6 % (36.0-66.0); PLATELET COUNT, AUTOMATED 488 10^3/uL (150-450); RED BLOOD COUNT 3.63 10^6/uL (4.00-5.40); WHITE BLOOD COUNT 8.2 10^3/uL (4.0-10.0)
[2018-08-09 06:36] LABS: ALBUMIN 1.3 GM/DL (3.2-5.2); ALT/SGPT 9 U/L (12-78); BILIRUBIN,TOTAL 0.2 MG/DL (0.2-1.0); BLOOD UREA NITROGEN 6 MG/DL (7-18); CALCIUM LEVEL 8.3 MG/DL (8.8-10.2); CARBON DIOXIDE LEVEL 21 MEQ/L (21-32); CHLORIDE LEVEL 110 MEQ/L (98-107); CREATININE FOR GFR 0.65 MG/DL (0.55-1.30); GLOMERULAR FILTRATION RATE > 60.0 (>32); GLUCOSE, FASTING 85 MG/DL (70-100); POTASSIUM SERUM 4.4 MEQ/L (3.5-5.1); SODIUM LEVEL 138 MEQ/L (136-145); TOTAL PROTEIN 5.1 GM/DL (6.4-8.2)
[2018-08-09] MEDS ORDERED: PERCOCET PO (08:14)
[2018-08-09] MEDS: ROSUVASTATIN 10 MG TAB (CRESTOR) PO SCH (10:03)
[2018-08-09] MEDS: FERROUS SULFATE 325MG TAB PO SCH (10:04)
[2018-08-09] MEDS: LACTOBACILLUS ACIDOPHILUS CAP (BACID) PO SCH (10:04)
[2018-08-09] MEDS: POTASSIUM CHLORIDE 10 MEQ SR TABLET PO SCH (10:04)
[2018-08-09] MEDS: ASPIRIN 81 MG ENTERIC TAB PO SCH (10:04)
[2018-08-09] MEDS: NYSTATIN 100,000 UNITS/GM TOPICAL PWD 15 GM TOP SCH (10:04)
[2018-08-09] MEDS: SODIUM CHLORIDE 0.9% INJ 10 ML SYR IV PRN (10:49)
[2018-08-09] MEDS: ONDANSETRON 4 MG TAB (S0181) PO PRN (10:51)
[2018-08-09] MEDS ORDERED: MAGNESIUM CITRATE 300 ML BTL PO ONE (11:00)
--- NOTE | 2018-08-09 15:54 | DS.PDOC ---
Discharge Summary General Date of Admission Jul 26, 2018 at 19:22 Date of Discharge 08/09/18 Specialist/Consultants Involve: JOVANNI XIONG DO Specialist/Consultants Involve Dr. Huff - infectious disease Discharge Summary PROCEDURES PERFORMED DURING STAY: Debridement sacral decubitus ulcer with wound vacuum-assisted closure placement DISCHARGE DIAGNOSES: #Sepsis #sacral/coccyx osteomyelitis #anemia s/p 1 unit PRBC #hyponatremia #HTN - not on medications #poor medical compliance Secondary Diagnoses: #Super morbid obesity. #Chronic kidney disease III. #Hypothyroidism. #Hyperlipidemia. #Chronic lower extremity edema. #History of recurrent cellulitis of the lower extremities. #Hypertension. #Coronary artery disease. #Nephrolithiasis. #History of bladder cancer. COMPLICATIONS/CHIEF COMPLAINT: Debility. HISTORY OF PRESENT ILLNESS: An 78-year-old female with a past medical history of supermorbid obesity, a history of hypothyroidism, hyperlipidemia, chronic kidney disease III, chronic lower extremity edema, recurrent cellulitis of the lower extremity, presents to the emergency room withy pain on her right foot and difficulty in mobility. She denied any subjective feeling of fever, aches, or chills. She did state she refused wound care to come to her house because she did not like the wound care physician, and she also mentioned that she didn't receive home PT, although the discharge summary where she was recently discharged from our facility for cellulitis and sepsis, she refused physical therapy (PT) to come to her house. The patient was methicillin-resistant Staphylococcus aureus (MRSA) positive on last admission, was given vancomycin, and she left with a normal white count. However, repeat labs, her CBC showed that her WBC jumped to 21,000 from 7,000 and IV Zosyn and vancomycin was started. She was admitted for further management . HOSPITAL COURSE: Patient underwent surgical debridement of her extensive sacral decubitus ulcers with placement of a wound VAC. She was started on broad spectrum antibiotics, and cultures revealed proteus mirabilis. CT scan was suspicious for osteomyelitis. MRI not obtainable due to patient body habitus. Antibiotics adjusted to ceftriaxone, with recommendations for 30 days course. She was anemic during her hospital stay requiring transfusion of 1 unit PRBC. She noted she had been transfused in the past. She additionally had some RLE cellulitis which resolved. She has acknowledged poor medical compliance, in the past refusing PT to come to her home, and not following as instructed with [facility] care providers. She is being discharged to a facility for continued IV antibiotics, and outpatient follow up. She voiced full understanding of the importance of follow up, as per PFS for safe discharge. DISCHARGE MEDICATIONS: Please see below. ALLERGIES: Please see below. PHYSICAL EXAMINATION ON DISCHARGE: VITAL SIGNS: Please see below. General: Lying in bed, no acute distress, comfortable, AAOx3 HEENT: NC, AT, edentulous CVS: RRR, +S1S2 Lungs: CTA B/L Abdomen: soft, NT, obese, +BS Back: + Sacral decubitus ulcers (Stage IV) - wound VAC in place Extremities: Chronic edema with chronic venous stasis changes bilaterally PROGNOSIS: Guarded ACTIVITY: [As tolerated]. DISPOSITION: [facility]. ITEMS TO FOLLOWUP ON ON OUTPATIENT: 1. Weekly labs as directed. 2. PCP in 3-5 days 3. Infectious disease as directed. DISCHARGE CONDITION: [Stable]. TIME SPENT ON DISCHARGE: Greater than 30 minutes. Vital Signs/I&Os Vital Signs Date Time Temp Pulse Resp B/P (MAP) Pulse Ox O2 Delivery O2 Flow Rate FiO2 08/09/18 11:18 18 Room Air 08/09/18 06:00 97.3 80 136/59 (84) 97 I&O- Last 24 Hours up to 6 AM 08/09/18 06:00 Intake Total 2500 ml Output Total 1950 ml Balance 550 ml Laboratory Data Labs 24H Laboratory Tests 2 08/09/18 05:41: Immature Granulocyte % (Auto) 0.4, White Blood Count 8.2, Red Blood Count 3.63L, Hemoglobin 9.5L, Hematocrit 30.7L, Mean Corpuscular Volume 84.6, Mean Corpuscular Hemoglobin 26.2L, Mean Corpuscular Hemoglobin Concent 30.9L, Red Cell Distribution Width 20.1H, Platelet Count 488H, Neutrophils (%) (Auto) 62.6, Lymphocytes (%) (Auto) 20.9L, Monocytes (%) (Auto) 11.7H, Eosinophils (%) (Auto) 3.5H, Basophils (%) (Auto) 0.9, Neutrophils # (Auto) 5.2, Lymphocytes # (Auto) 1.7, Monocytes # (Auto) 1.0H, Eosinophils # (Auto) 0.3, Basophils # (Auto) 0.1, Nucleated Red Blood Cells % (auto) 0.0 08/09/18 05:42: Anion Gap 7L, Glomerular Filtration Rate > 60.0, Blood Urea Nitrogen 6L, Creatinine 0.65, Sodium Level 138, Potassium Level 4.4, Chloride Level 110H, Carbon Dioxide Level 21, Calcium Level 8.3L, Aspartate Amino Transf (AST/SGOT) 13, Alanine Aminotransferase (ALT/SGPT) 9L, Alkaline Phosphatase 156H, Total Bilirubin 0.2, Total Protein 5.1L, Albumin 1.3L, Albumin/Globulin Ratio 0.34L CBC/BMP Laboratory Tests 08/09/18 05:41 Red Blood Count 3.63 L, Mean Corpuscular Volume 84.6, Mean Corpuscular Hemoglobin 26.2 L, Mean Corpuscular Hemoglobin Concent 30.9 L, Red Cell Distribution Width 20.1 H, Neutrophils (%) (Auto) 62.6, Lymphocytes (%) (Auto) 20.9 L, Monocytes (%) (Auto) 11.7 H, Eosinophils (%) (Auto) 3.5 H, Basophils (%) (Auto) 0.9, Neutrophils # (Auto) 5.2, Lymphocytes # (Auto) 1.7, Monocytes # (Auto) 1.0 H, Eosinophils # (Auto) 0.3, Basophils # (Auto) 0.1 08/09/18 05:42 Calcium Level 8.3 L, Aspartate Amino Transf (AST/SGOT) 13, Alanine Aminotransferase (ALT/SGPT) 9 L, Alkaline Phosphatase 156 H, Total Bilirubin 0.2, Total Protein 5.1 L, Albumin 1.3 L Microbiology Microbiology 08/01/18 MRSA Screen - Final, Complete Discharge Medications Scheduled (Leg Cramp Relief) 1 Tab Tab, 1 TAB PO QHS, (Reported) Aspirin (Aspirin 81) 81 Mg Tab, 81 MG PO DAILY, (Reported) Ergocalciferol (Vitamin D) 50,000 Unit Cap, 50,000 UNIT PO QMONTH, (Reported) TAKES ON THE FIRST OF THE MONTH Ferrous Sulfate (Ferrous Sulfate) 325 Mg Tab, 325 MG PO DAILY, (Reported) Ibandronate Sodium (Ibandronate Sodium) 150 Mg Tab, 150 MG PO QMONTH, (Reported) TAKES ON THE 1ST OF THE MONTH Lactobacillus Acidophilus (Bacid) 1 Tab Tab, 1 TAB PO DAILY, (Reported) Levothyroxine Sodium (Synthroid) 125 Mcg Tab, 125 MCG PO QHS, (Reported) Magnesium Gluconate (Magnesium Gluconate) 500 Mg Tab, 500 MG PO QHS, (Reported) Nystatin (Nystatin Powder) 100,000 Unit/Gm Pow, 1 DOSE TOP BID, (Reported) Potassium Chloride (Klor-Con M20) 20 Meq Tabcr, 20 MEQ PO DAILY, (Reported) Rosuvastatin Calcium (Crestor) 40 Mg Tab, 40 MG PO DAILY, (Reported) Scheduled PRN Hydroxyzine HCl (Hydroxyzine HCl) 10 Mg Tab, 10 MG PO BID PRN for ITCHING, (Reported) Oxycodone/Acetaminophen (Percocet 5MG/325MG Tablet) 1 Tab Tab, 1 TAB PO Q6HP PRN for MILD/MODERATE PAIN (PS 1-7) Allergies Coded Allergies: Phenobarbital (Verified Allergy, Intermediate, HIVES, 12/29/16) Sulfa Drugs (Verified Allergy, Intermediate, HIVES, 12/29/16) Camphor (Unverified Allergy, Unknown, SKIN BLISTERS, 01/11/17) Carboxymethylcellulose (Unverified Allergy, Unknown, SKIN BLISTERS, 01/11/17) Latex (Verified Allergy, Unknown, 12/29/16) Menthol (Unverified Allergy, Unknown, SKIN BLISTERS, 01/11/17) Methyl Salicylate (Unverified Allergy, Unknown, SKIN BLISTERS, 01/11/17) Pineapple (Verified Allergy, Unknown, 12/29/16) TAPE (Verified Allergy, Unknown, 12/29/16) Trolamine Salicylate (Unverified Allergy, Unknown, SKIN BLISTERS, 01/11/17) Clindamycin (Unverified Adverse Reaction, Intermediate, VOMITING, 12/29/16) KASHMIR MARTINEZ MD Aug 09, 2018 15:54
[2018-08-13] MEDS ORDERED: VITAMIN D 50,000 UNITS CAPSULE (ERGOCALCIFEROL 1.25MG) PO SCH (09:00)
== END 2018-08-09 11:15 | DRG 853 ==
LOC: M ED 14:49 → M ED INP 18:10 → OBSVTOIN 19:22 → M PCU 20:54 → M MS5PR 07-30 13:00
PROVIDERS: ADMIT Internal Medicine; ATTEND Internal Medicine
PROC: 0KBN0ZZ Excision of Right Hip Muscle, Open Approach (ICD-10-PCS; 2018-07-28)
PROC: 0QB10ZZ Excision of Sacrum, Open Approach (ICD-10-PCS; principal; 2018-07-28 13:30)
PROC: 02HV33Z Insertion of Infusion Device into Superior Vena Cava, Percutaneous Approach (ICD-10-PCS; 2018-07-29)
PROC: 3E033VJ Introduction of Other Hormone into Peripheral Vein, Percutaneous Approach (ICD-10-PCS; 2018-08-05)
DX: A41.9 Sepsis, unspecified organism (principal); L89.154 Pressure ulcer of sacral region, stage 4; L03.115 Cellulitis of right lower limb; E87.1 Hypo-osmolality and hyponatremia; M86.9 Osteomyelitis, unspecified; L89.890 Pressure ulcer of other site, unstageable; E66.01 Morbid (severe) obesity due to excess calories; I25.10 Atherosclerotic heart disease of native coronary artery without angina pectoris; E03.9 Hypothyroidism, unspecified; E78.5 Hyperlipidemia, unspecified; N18.3 Chronic kidney disease, stage 3 (moderate); I12.9 Hypertensive chronic kidney disease with stage 1 through stage 4 chronic kidney disease, or unspecified chronic kidney disease; Z79.899 Other long term (current) drug therapy; Z79.82 Long term (current) use of aspirin; Z88.2 Allergy status to sulfonamides; Z88.8 Allergy status to other drugs, medicaments and biological substances; Z91.018 Allergy to other foods; Z91.040 Latex allergy status; Z85.51 Personal history of malignant neoplasm of bladder; Z91.19 Patient's noncompliance with other medical treatment and regimen; D64.9 Anemia, unspecified